=== PATIENT | female | born 1955 | race Caucasian/White ===

== ENCOUNTER → 2020-03-09 10:12 | Outpatient (BNVA) | payer OTHER, SELFPAY | PROVIDERS: Visit Provider Internal Medicine Endocrinology, Diabetes & Metabolism | DX: E11.9 Type 2 diabetes mellitus without complications (principal); E11.319 Type 2 diabetes mellitus with unspecified diabetic retinopathy without macular edema; E11.42 Type 2 diabetes mellitus with diabetic polyneuropathy; E04.2 Nontoxic multinodular goiter; E78.5 Hyperlipidemia, unspecified | CPT/HCPCS: 82947; 99214 ==

== ENCOUNTER → 2020-04-07 12:08 | Outpatient (BNVA) | payer OTHER, SELFPAY | PROVIDERS: Visit Provider Dietitian, Registered | DX: Z76.89 Persons encountering health services in other specified circumstances (principal) ==

== ENCOUNTER 2020-05-11 13:24 | Outpatient (REF) | payer OTHER, SELFPAY | END 2020-05-11 13:25 | disposition home or self-care (01) | LOC: HO.LAB 13:24 | PROVIDERS: PCP Internal Medicine; Visit Provider Internal Medicine | DX: Z20.828 Contact with and (suspected) exposure to other viral communicable diseases (principal) | CPT/HCPCS: C9803; U0003 ==

== ENCOUNTER 2020-06-10 09:45 | Outpatient (REF) | payer OTHER, SELFPAY | END 2020-06-10 09:46 | disposition home or self-care (01) | LOC: HO.LAB 09:45 | PROVIDERS: Visit Provider Internal Medicine | DX: Z20.822 Contact with and (suspected) exposure to COVID-19 (principal) | CPT/HCPCS: 36415; C9803; U0003 ==

== ENCOUNTER 2020-06-15 09:58 | Outpatient (REF) | payer OTHER, SELFPAY ==
--- NOTE | 2020-06-15 10:02 | MM_ITS ---
EXAMINATION: MM SCREENING DIGITAL BREAST TOMOSYNTHESIS, BILATERAL CLINICAL INFORMATION: Screening. Asymptomatic. Reduction mammoplasty 2009. The lifetime risk of breast cancer based on the Tyrer-Cuzick Model is 6%. COMPARISON: Mammography: 06/10/2019, 12/10/2018, 06/05/2018, 04/22/2017; targeted ultrasound left breast 06/11/2018, 12/10/2018. TECHNIQUE: Digital breast tomosynthesis is performed in both the craniocaudal and mediolateral oblique views along with computer-aided detection (CAD). Synthesized 2D images are generated from the tomosynthesis. Additional right exaggerated CC view is provided. FINDINGS: There are scattered areas of fibroglandular density (ACR BI-RADS breast composition Category b). Parenchymal pattern is similar to prior studies. There is minor stable scarring inferior breasts with scattered round calcifications consistent with the prior reduction mammoplasty. Small waxing and waning cyst again noted posterior 7:00 left breast. No significant mass. No interval architectural abnormality or abnormal calcifications. MM/MM tomosynthesis screening BI IMPRESSION: No mammographic evidence of malignancy. ASSESSMENT: BI-RADS 2: Benign RECOMMENDATION: Routine annual mammography screening. This patient's information was entered into a reminder system with a target due date for their next mammogram.
== END 2020-06-15 09:59 | disposition home or self-care (01) ==
LOC: HO.MAMMO 09:58
PROVIDERS: PCP Internal Medicine; Visit Provider Internal Medicine
DX: Z12.31 Encounter for screening mammogram for malignant neoplasm of breast (principal)
CPT/HCPCS: 77063; 77067

== ENCOUNTER 2020-07-11 08:47 | Outpatient (REF) | payer OTHER, SELFPAY | END 2020-07-11 08:48 | disposition home or self-care (01) | LOC: CF 08:47 | PROVIDERS: PCP Internal Medicine; Visit Provider Internal Medicine Endocrinology, Diabetes & Metabolism | DX: E11.319 Type 2 diabetes mellitus with unspecified diabetic retinopathy without macular edema (principal); E11.42 Type 2 diabetes mellitus with diabetic polyneuropathy; E04.2 Nontoxic multinodular goiter; E78.5 Hyperlipidemia, unspecified; R63.4 Abnormal weight loss | CPT/HCPCS: 82947; 99212 ==

== ENCOUNTER 2020-07-11 09:20 | Outpatient (REF) | payer OTHER, SELFPAY | END 2020-07-11 09:21 | disposition home or self-care (01) | LOC: HO.10HDL 09:20 | PROVIDERS: Visit Provider Internal Medicine Endocrinology, Diabetes & Metabolism | DX: Z13.89 Encounter for screening for other disorder (principal) ==

== ENCOUNTER 2020-07-12 09:05 | Outpatient (REF) | payer OTHER, SELFPAY ==
[2020-07-12 09:31] LABS: Hematocrit 37.5 % (37-47); Hemoglobin 12.3 g/dl (12.0-16.0); Mean Corpuscular HGB Conc 32.8 g/dl (31.0-35.0); Mean Corpuscular Hemoglobin 30.2 pg (27.0-33.0); Mean Corpuscular Volume 92.1 fL (80-98); Mean Platelet Volume 10.2 fL (9.4-12.3); Platelet Count 161 X10*3/uL (160-400); Red Blood Count 4.07 X10*6/uL (4.20-5.50); Red Cell Distribution Width 12.8 % (11.0-16.0); White Blood Count 4.3 X10*3/uL (4.8-10.8)
[2020-07-12 09:59] LABS: Alanine Aminotransferase 48 U/L (0-31); Albumin Level 3.9 g/dL (3.5-5.0); Alkaline Phosphatase 74 U/L (39-117); Anion Gap 12 (12-20); Aspartate Amino Transferase 30 U/L (5-31); Bilirubin Total 0.5 mg/dL (0.0-1.0); Blood Urea Nitrogen 15 mg/dL (9-16); Calcium 8.8 mg/dL (8.4-10.2); Carbon Dioxide 26 mmol/L (22-29); Chloride 107 mmol/L (96-108); Cholesterol 147 mg/dL; Estimated Glomerular Filt Rate 43; Glucose Fasting 104 mg/dL (60-99); HDL Cholesterol 61 mg/dL; LDL Cholesterol Calculated 68 mg/dl; Potassium 4.3 mmol/L (3.3-5.1); Sodium 141 mmol/L (135-145); Total Protein 6.7 g/dL (6.5-8.0); Triglycerides 92 mg/dL
[2020-07-12 10:01] LABS: Creatinine Urine 158.42 mg/dL; Microalbum/Creatinine Ratio Ur 70.6 ug/mg cr
[2020-07-12 10:19] LABS: Free T4 (Free Thyroxine) 0.94 ng/dL (0.71-1.85); Vitamin D 25-OH Total 48.1 ng/mL (>30)
[2020-07-13 05:43] LABS: DHEA Sulfate 15 mcg/dL (12-133)
[2020-07-13 06:26] LABS: LDL Cholesterol Direct 76 mg/dL (<100)
[2020-07-13 23:56] LABS: Adrenocorticotropic Hormone 19 pg/mL (6-50)
[2020-07-14 16:23] LABS: Vitamin B12 415 pg/mL (200-900)
== END 2020-07-12 09:06 | disposition home or self-care (01) ==
LOC: HO.LAB 09:05
PROVIDERS: Visit Provider Internal Medicine Endocrinology, Diabetes & Metabolism
DX: E11.9 Type 2 diabetes mellitus without complications (principal); R63.4 Abnormal weight loss
CPT/HCPCS: 36415; 80053; 80061; 82024; 82043; 82306; 82533; 82607; 82627; 83721; 84439; 84443; 85027

== ENCOUNTER → 2020-07-14 10:55 | Outpatient (BNVA) | payer OTHER, SELFPAY | PROVIDERS: PCP Internal Medicine; Visit Provider Dietitian, Registered ==

== ENCOUNTER → 2020-08-11 13:05 | Outpatient (BNVA) | payer OTHER, SELFPAY | PROVIDERS: PCP Internal Medicine; Visit Provider Internal Medicine | DX: I48.0 Paroxysmal atrial fibrillation (principal); I95.1 Orthostatic hypotension; Z95.818 Presence of other cardiac implants and grafts | CPT/HCPCS: 93005; 99212 ==

== ENCOUNTER → 2020-10-18 12:54 | Outpatient (BNVA) | payer OTHER, SELFPAY | PROVIDERS: PCP Internal Medicine; Referring Provider Internal Medicine; Visit Provider Nurse Practitioner | DX: R10.33 Periumbilical pain (principal); R19.7 Diarrhea, unspecified; R13.10 Dysphagia, unspecified; K21.9 Gastro-esophageal reflux disease without esophagitis; R09.89 Other specified symptoms and signs involving the circulatory and respiratory systems; Z98.84 Bariatric surgery status; Z79.899 Other long term (current) drug therapy | CPT/HCPCS: 99212 ==

== ENCOUNTER 2020-12-02 10:25 | Emergency (ER) | payer OTHER, SELFPAY ==
--- NOTE | ~2020-12-02 | CT_ITS ---
EXAMINATION: CT ABDOMEN AND PELVIS WITH CONTRAST CLINICAL INFORMATION: Abdominal pain. Diarrhea. Evaluate for colitis. COMPARISON: Previous CT of the abdomen and pelvis most recent November 2019. TECHNIQUE: Multidetector volumetric images were obtained from the superior aspect of the liver through the pubic symphysis following administration 85 mL of Omnipaque 350 intravenous contrast. Sagittal and coronal reformatted images were obtained on the technologist's workstation. Oral contrast: Yes This CT examination was performed using dose optimization techniques as appropriate, variously including the following: *Automated exposure control *Adjustment of mA and/or kV according to patient size (this includes techniques or standardized protocols for targeted exams where dose is matched to indication/reason for exam; i.e. extremities or head) *Use of iterative reconstruction technique DLP: 380 mGy-cm FINDINGS: LUNG BASES: The visualized lung bases are unremarkable. LIVER, GALLBLADDER, AND BILIARY TREE: There is a small 5 mm calcification seen in the central liver that is stable. The gallbladder has been removed. There is no biliary duct dilatation. PANCREAS: Unremarkable. SPLEEN: Unremarkable. ADRENAL GLANDS: Unremarkable. KIDNEYS AND URETERS: The kidneys are normal in size, shape, and attenuation. No hydronephrosis, hydroureter, or calculi seen. No perinephric stranding. BLADDER: There is air in the bladder. This may be related to recent catheterization. Clinical correlation is recommended. GASTROINTESTINAL TRACT: There are postoperative changes from gastric bypass. There is a small bowel intussusception at the small bowel anastomosis, nonobstructive. Small and large bowel is otherwise unremarkable. No evidence of colitis or diverticulitis is seen. The appendix is normal. ABDOMINAL WALL: No significant hernia is appreciated. LYMPH NODES: Normal. VASCULAR: Unremarkable. PELVIC VISCERA: There is a small calcification in the uterus probably representing a calcified fibroid. There are small bilateral ovarian calcifications. These findings are stable. OSSEOUS STRUCTURES: There are degenerative changes of the spine. There is a mild T11 vertebral body fracture that is unchanged. CT/CT abdomen pelvis w con IMPRESSION: No evidence of colitis or diverticulitis. Postoperative changes following gastric bypass. Nonobstructed small bowel intussusception at the small bowel anastomosis. Air in the bladder. This may be related to recent catheterization. Clinical correlation recommended.
[2020-12-02 10:52] VITALS: BP 161/48; PULSE 64; RESP 12; TEMP 36.6; O2SAT 100; BMI 22.4
--- NOTE | 2020-12-02 11:08 | ED.NAVMDI ---
HPI - Nausea/Vomiting/Diarrhea General Chief complaint: Nausea/Vomiting/Diarrhea Stated complaint: Weakness Time Seen by Provider: 12/02/20 10:45 Source: patient Mode of arrival: ambulatory Limitations: no limitations History of Present Illness HPI Narrative: Patient presents to ED for weakness, loss of appetite, tiredness, and multiple episodes of diarrhea per day for 1 month. Patient also states black stool around a month. Patient admits to using Pepto-Bismol. Patient states also having abdominal pain with the diarrhea for months. Patient denies being placed on any new antibiotics or recent hospital admission. Recently travel from [place] but started having diarrhea [place] Patient states she is vaccinated against the COVID-19 virus. MD elicited complaint: nausea, vomiting, diarrhea and abdominal pain Associated nausea: Yes Related Data Home Medications Medication Instructions Recorded Confirmed ascorbic acid (vitamin C) 250 mg 250 mg PO DAILY 03/09/20 08/11/20 tablet bupropion HCl 200 mg tablet,12 hr 200 mg PO DAILY 03/09/20 08/11/20 sustained-release calcium carbonate 600 mg (1,500 1 tab PO BID 03/09/20 08/11/20 mg)-vitamin D3 400 unit tablet ferrous sulfate 325 mg (65 mg 325 mg PO BID 03/09/20 08/11/20 iron) tablet midodrine 10 mg tablet 10 mg PO TID 03/09/20 08/11/20 oxybutynin chloride 5 mg tablet 5 mg PO BID 03/09/20 08/11/20 trazodone 100 mg tablet 100 mg PO BEDTIME PRN 03/09/20 08/11/20 aspirin 81 mg tablet,delayed 81 mg PO DAILY 07/11/20 08/11/20 release atorvastatin 40 mg tablet 40 mg PO BEDTIME tab 07/11/20 08/11/20 loperamide 2 mg capsule 2 mg PO BEDTIME cap 07/11/20 08/11/20 Previous Rx's Medication Instructions Recorded gabapentin 300 mg capsule 300 mg PO BEDTIME #90 cap 05/11/20 acarbose 25 mg tablet 25 mg PO TID 30 Days #90 tab 07/11/20 blood-glucose meter #1 ea 07/11/20 flecainide 50 mg tablet 50 mg PO Q12H #180 tab 08/15/20 metoprolol succinate 25 mg 25 mg PO DAILY #90 tab 08/15/20 tablet,extended release 24 hr cholecalciferol (vitamin D3) 50 50 mcg PO DAILY #90 cap 09/13/20 mcg (2,000 unit) capsule pantoprazole 40 mg tablet,delayed 40 mg PO QAM #90 tab 09/14/20 release blood sugar diagnostic #100 ea 09/29/20 blood-glucose meter #1 ea 09/29/20 lancets 28 gauge #100 ea 09/29/20 sucralfate 1 gram tablet 2 g PO DAILY #60 tab 10/18/20 nitrofurantoin monohyd/m-cryst 100 mg PO Q12H 7 Days #14 cap 12/02/20 [Macrobid] Allergies Allergy/AdvReac Type Severity Reaction Status Date / Time SEASON ALERGIES Allergy Unknown Unknown Uncoded 10/18/20 13:07 Review of Systems Review of Systems: Yes all other systems are reviewed and are negative Constitutional: Constitutional: Reports as per HPI, Reports no additional constitutional complaints and Reports fatigue Eyes: Eyes: Reports as per HPI and Reports no additional eye complaints ENT: Reports system reviewed and no additional complaints, except as documented and Reports as per HPI Cardiovascular: Cardiovascular: Reports as per HPI and Reports no additional cardiovascular complaints Respiratory: Respiratory: Reports as per HPI and Reports no additional respiratory complaints Gastrointestinal: Gastrointestinal: Reports as per HPI, Reports no additional gastrointestinal complaints, Reports abdominal pain, Reports melena, Reports diarrhea and Reports nausea Musculoskeletal: Musculoskeletal: Reports no additional musculoskeletal complaints and Reports as per HPI Neurologic: Reports system reviewed and no additional complaints, except as documented and Reports as per HPI Psychiatric: Psychiatric: Reports no additional psychiatric complaints and Reports as per HPI Endocrine: Endocrine: Reports fatigue [facility] Past Medical History Medical History (Updated 12/02/20 @ 18:49 by JOHNNY Sarkar) Anxiety Depression Diabetes type 2, controlled Diabetic polyneuropathy associated with type 2 diabetes mellitus Diabetic retinopathy associated with type 2 diabetes mellitus Dyslipidemia Non-toxic multinodular goiter Orthostatic hypotension Overweight (BMI 25.0-29.9) PAF (paroxysmal atrial fibrillation) Presence of Watchman left atrial appendage closure device Subdural hematoma Syncope and collapse Vitamin D deficiency Surgical History History of gastric bypass Hx of hand surgery Hx of knee surgery Family History Family History Father CVD (cardiovascular disease) Mother Diabetes Social History Social History Alcohol intake: never Patient Tobacco Use Status: Never used Tobacco Use of substances other than those prescribed or required for medical reasons: No Advance Directives: No Advance Directives Information Provided: No Physical Exam Vital Signs: Vital Signs: Last Vital Signs Temp 97.6 F 12/02/20 17:54 Pulse 71 12/02/20 17:54 Resp 13 12/02/20 17:54 BP 164/56 H 12/02/20 17:54 Pulse Ox 100 12/02/20 17:54 Body Mass Index 22.4 Const: General: cooperative, healthy appearing, comfortable, no acute distress, well developed, alert, awake and Physically active; No lethargic Orientation/consciousness: oriented to person, oriented to place, patient oriented x3 and No lethargic HENMT: Head: Yes normal to inspection, Yes No palpable skull fracture present, Yes normocephalic, Yes atraumatic, No abrasion, No Acrocyanosis present, No Betts's sign, No cranial bruits, No hematoma, No laceration, No occipital foramen tenderness, No palpable skull fracture, No raccoon eyes, No scalp lesion, No scalp tenderness, No Temporal artery tenderness present and No periorbital ecchymosis Eyes: General: appearance normal, both eyes and all related structures Neck: Neck: Yes normal visual inspection, Yes full ROM, Yes no lymphadenopathy, Yes no meningeal signs, Yes trachea midline, Yes supple and No tender Chest: Chest palpation & inspection: normal inspection of the chest and normal palpation of entire chest wall Resp: Effort & Inspection: normal respiratory effort and able to speak in complete sentences Auscultation: clear to auscultation bilaterally GI: Inspection: Yes normal to inspection and No abdominal wall ecchymosis Palpation (GI): Soft to palpation, not firm, nontender, no guarding and not rigid : General: No CVA tenderness and Yes no CVA tenderness Back/Spine/Pelvis: Back: no CVA tenderness, No CVA tenderness and No back tenderness Skin: General skin exam: no rashes or lesions noted and elasticity normal Neuro: Other: Negative slurred speech. Negative facial droop. They have put a drift. All extremities equal strength 5+. [id number] rapid hand movement intact. Negative Romberg General: oriented to person, oriented to place, patient oriented x3, gait normal and CN's II-XI intact bilaterally Cranial nerves: Yes CN's II-XII intact bilaterally Extrem: General: Yes normal to inspection and Yes full ROM Psych: Appearance: grossly normal, well kempt and not disheveled Course Course Course Narrative: Patient's neuro exam is intact. Patient will have labs drawn including stool sample and COVID swab. Will do rectal exam with female senior case manager is availabe. Reevaluation(s) Reevaluation #1: Patient labs are baseline except kidney function mild AMAURI patient will be sent for abdominal CT scan to rule out any abdominal etiology like colitis. Waiting for patient to give stool sample. Patient vital signs stable Time: 11:47 Reevaluation #2: Second troponin came back normal. AK resolved. Abdominal CT scan shows interception. Patient's abdomen is benign and nontender palpation. Patient ate all med down a meal without staff known. Spoke with Dr. Stoll recommended that I contact bariatric surgeon. I spoke with JOHNNY Canela who is the on-call bariatric surgeon who works with . She recommends patient being on liquid diet for the next 2 days and follow up with her [facility] bariatric surgeon. Patient will be on liquid diet. She states patient could be discharged. Time: 18:23 Reevaluation #3: Patient informed of what a bariatric surgeon recommended and she is agreeable to plan. Patient also given a cup and in a rare in lab order for outpatient C diff to be done since patient was not able to give stool sample during ED visit. Time: 18:44 MDM - Nausea/Vomiting/Diarrhea MDM Narrative Medical decision making narrative: Intussusception Lab Data Result diagrams: 12/02/20 11:47 12/02/20 16:07 Labs: Lab Results 12/02/20 12/02/20 12/02/20 Range/Units 11:39 11:47 11:47 WBC 4.9 (4.8-10.8) X10*3/uL RBC 4.02 L (4.20-5.50) X10*6/uL Hgb 12.1 (12.0-16.0) g/dl Hct 36.0 L (37-47) % MCV 89.6 (80-98) fL MCH 30.1 (27.0-33.0) pg MCHC 33.6 (31.0-35.0) g/dl RDW 11.5 (11.0-16.0) % Plt Count 140 L (160-400) X10*3/uL MPV 10.4 (9.4-12.3) fL Immature Gran % (Auto) 0.2 (0.0-0.4) % Neut % (Auto) 66.5 (45-73) % Lymph % (Auto) 25.2 (20-40) % [place] % (Auto) 6.1 (2-11) % Eos % (Auto) 1.8 (0-4) % Baso % (Auto) 0.2 (0-2) % Lymph # (Auto) 1.2 (1.2-4.9) X10*3/uL [place] # (Auto) 0.3 (0.1-1.2) X10*3/uL Eos # (Auto) 0.1 (0.0-0.4) X10*3/uL Baso # (Auto) 0.0 (0.0-0.2) X10*3/uL Abs Immat Gran (auto) 0.01 (0.00-0.03) X10*3/uL Absolute Neuts (auto) 3.2 (2.0-8.3) X10*3/uL Absolute Nucleated RBC 0.000 (0.0-0.012) X10*3/uL Nucleated RBC % (auto) 0.0 (0.0-0.2) /100WBC Sodium 137 (135-145) mmol/L Potassium 4.5 (3.3-5.1) mmol/L Chloride 104 (96-108) mmol/L Carbon Dioxide 26 (22-29) mmol/L Anion Gap 12 (12-20) BUN 19 H (9-16) mg/dL Creatinine 1.50 H (0.5-1.4) mg/dL Estim Creat Clear Calc 31.7 Estimated GFR 35 Random Glucose 117 H (60-115) mg/dL Calcium 9.4 D (8.4-10.2) mg/dL Total Bilirubin 0.6 (0.0-1.0) mg/dL Direct Bilirubin 0.2 (0.0-0.5) mg/dL AST 29 (5-31) U/L ALT 26 (0-31) U/L Alkaline Phosphatase 77 (39-117) U/L Troponin I High Sens (<3.5-17.0) ng/L Total Protein 7.2 (6.5-8.0) g/dL Albumin 4.1 (3.5-5.0) g/dL Lipase 33 (8-78) U/L Urine Color Urine Appearance Urine pH (5.0-8.0) Ur Specific [place] (1.005-1.025) Urine Protein (NEG-TRACE) MG/DL Urine Glucose (UA) (NEG) MG/DL Urine Ketones (NEG) MG/DL Urine Blood (NEG) Urine Nitrite (NEG) Ur Leukocyte Esterase (NEG) Urine RBC (0) /HPF Urine WBC (0-4) /HPF Ur Squamous Epith Cells /LPF Urine Bacteria /LPF Stool Occult Blood (NEGATIVE) COVID-19 (BELLE) Negative (Negative) COVID-19 Clin Com See Note 12/02/20 12/02/20 12/02/20 Range/Units 11:47 12:02 15:40 WBC (4.8-10.8) X10*3/uL RBC (4.20-5.50) X10*6/uL Hgb (12.0-16.0) g/dl Hct (37-47) % MCV (80-98) fL MCH (27.0-33.0) pg MCHC (31.0-35.0) g/dl RDW (11.0-16.0) % Plt Count (160-400) X10*3/uL MPV (9.4-12.3) fL Immature Gran % (Auto) (0.0-0.4) % Neut % (Auto) (45-73) % Lymph % (Auto) (20-40) % [place] % (Auto) (2-11) % Eos % (Auto) (0-4) % Baso % (Auto) (0-2) % Lymph # (Auto) (1.2-4.9) X10*3/uL [place] # (Auto) (0.1-1.2) X10*3/uL Eos # (Auto) (0.0-0.4) X10*3/uL Baso # (Auto) (0.0-0.2) X10*3/uL Abs Immat Gran (auto) (0.00-0.03) X10*3/uL Absolute Neuts (auto) (2.0-8.3) X10*3/uL Absolute Nucleated RBC (0.0-0.012) X10*3/uL Nucleated RBC % (auto) (0.0-0.2) /100WBC Sodium (135-145) mmol/L Potassium (3.3-5.1) mmol/L Chloride (96-108) mmol/L Carbon Dioxide (22-29) mmol/L Anion Gap (12-20) BUN (9-16) mg/dL Creatinine (0.5-1.4) mg/dL Estim Creat Clear Calc Estimated GFR Random Glucose (60-115) mg/dL Calcium (8.4-10.2) mg/dL Total Bilirubin (0.0-1.0) mg/dL Direct Bilirubin (0.0-0.5) mg/dL AST (5-31) U/L ALT (0-31) U/L Alkaline Phosphatase (39-117) U/L Troponin I High Sens 13.2 16.5 (<3.5-17.0) ng/L Total Protein (6.5-8.0) g/dL Albumin (3.5-5.0) g/dL Lipase (8-78) U/L Urine Color Urine Appearance Urine pH (5.0-8.0) Ur Specific [place] (1.005-1.025) Urine Protein (NEG-TRACE) MG/DL Urine Glucose (UA) (NEG) MG/DL Urine Ketones (NEG) MG/DL Urine Blood (NEG) Urine Nitrite (NEG) Ur Leukocyte Esterase (NEG) Urine RBC (0) /HPF Urine WBC (0-4) /HPF Ur Squamous Epith Cells /LPF Urine Bacteria /LPF Stool Occult Blood NEGATIVE (NEGATIVE) COVID-19 (BELLE) (Negative) COVID-19 Clin Com 12/02/20 12/02/20 Range/Units 15:40 16:07 WBC (4.8-10.8) X10*3/uL RBC (4.20-5.50) X10*6/uL Hgb (12.0-16.0) g/dl Hct (37-47) % MCV (80-98) fL MCH (27.0-33.0) pg MCHC (31.0-35.0) g/dl RDW (11.0-16.0) % Plt Count (160-400) X10*3/uL MPV (9.4-12.3) fL Immature Gran % (Auto) (0.0-0.4) % Neut % (Auto) (45-73) % Lymph % (Auto) (20-40) % [place] % (Auto) (2-11) % Eos % (Auto) (0-4) % Baso % (Auto) (0-2) % Lymph # (Auto) (1.2-4.9) X10*3/uL [place] # (Auto) (0.1-1.2) X10*3/uL Eos # (Auto) (0.0-0.4) X10*3/uL Baso # (Auto) (0.0-0.2) X10*3/uL Abs Immat Gran (auto) (0.00-0.03) X10*3/uL Absolute Neuts (auto) (2.0-8.3) X10*3/uL Absolute Nucleated RBC (0.0-0.012) X10*3/uL Nucleated RBC % (auto) (0.0-0.2) /100WBC Sodium 140 (135-145) mmol/L Potassium 4.4 (3.3-5.1) mmol/L Chloride 110 H (96-108) mmol/L Carbon Dioxide 24 (22-29) mmol/L Anion Gap 10 L (12-20) BUN 16 (9-16) mg/dL Creatinine 1.24 (0.5-1.4) mg/dL Estim Creat Clear Calc 38.3 Estimated GFR 44 Random Glucose 94 (60-115) mg/dL Calcium 8.2 L D (8.4-10.2) mg/dL Total Bilirubin 0.5 (0.0-1.0) mg/dL Direct Bilirubin (0.0-0.5) mg/dL AST 30 (5-31) U/L ALT 28 (0-31) U/L Alkaline Phosphatase 66 (39-117) U/L Troponin I High Sens (<3.5-17.0) ng/L Total Protein 6.1 L (6.5-8.0) g/dL Albumin 3.5 (3.5-5.0) g/dL Lipase (8-78) U/L Urine Color STRAW Urine Appearance CLEAR Urine pH 6.0 (5.0-8.0) Ur Specific [place] <= 1.005 (1.005-1.025) Urine Protein NEG (NEG-TRACE) MG/DL Urine Glucose (UA) NEG (NEG) MG/DL Urine Ketones NEG (NEG) MG/DL Urine Blood NEG (NEG) Urine Nitrite NEG (NEG) Ur Leukocyte Esterase 2+ H (NEG) Urine RBC 1-4 (0) /HPF Urine WBC 15-29 H (0-4) /HPF Ur Squamous Epith Cells 2+ /LPF Urine Bacteria 2+ /LPF Stool Occult Blood (NEGATIVE) COVID-19 (BELLE) (Negative) COVID-19 Clin Com ECG Data Interpretation: Reticular rate 59. Pr interval 146. QRS 98. QTC 401. Negative STEMI. Normal sinus rhythm. Negative STEMI Discharge Plan Discharge Clinical Impression: Intussusception Patient Disposition: Home, Self-Care Instructions: Urinary Tract Infection in Women (ED), Intussusception in Children (ED) Additional Instructions: Se le entregar? nuestro comprobante de laboratorio para nuestra prueba C diff para pacientes con el laboratorio del [facility]. [place] tomograf?a computarizada abdominal mostr? que tuvo invaginaci?n intestinal. Tus laboratorios volvieron a la normalidad. [place] orina muestra nehemiah infecci?n del tracto urinario. El cirujano compa?trico de claudy recomend? nehemiah dieta l?quida bernard los pr?ximos 2 d?as y para que usted kameron un seguimiento con greene cirujano compa?trico en [facility]. Regrese al servicio de urgencias si tiene dolor abdominal, n?useas, v?mitos, fiebre, escalofr?os, estre?imiento, sangrado rectal, v?mitos con cornelio, orina con cornelio o cualquier otro s?ntoma que le preocupe. Prescriptions: New nitrofurantoin monohyd/m-cryst [Macrobid] 100 mg capsule 100 mg PO Q12H 7 Days Qty: 14 RF: 0 No Action gabapentin 300 mg capsule 300 mg PO BEDTIME Qty: 90 RF: 1 flecainide 50 mg tablet 50 mg PO Q12H Qty: 180 RF: 1 metoprolol succinate 25 mg tablet extended release 24 hr 25 mg PO DAILY Qty: 90 RF: 3 cholecalciferol (vitamin D3) 50 mcg (2,000 unit) capsule 50 mcg PO DAILY Qty: 90 RF: 1 pantoprazole 40 mg tablet,delayed release (DR/EC) 40 mg PO QAM Qty: 90 RF: 1 (DME) blood-glucose meter [FreeStyle Lite Meter] Kit See Rx Instructions miscellaneous .MEDSUPPLY Qty: 1 RF: 0 (DME) FreeStyle Lite Strips Strip See Rx Instructions .MEDSUPPLY Qty: 100 RF: 6 (DME) lancets [FreeStyle Lancets] 28 gauge misc See Rx Instructions .MEDSUPPLY Qty: 100 RF: 6 sucralfate 1 gram tablet 2 g PO DAILY Qty: 60 RF: 6 ferrous sulfate 325 mg (65 mg iron) tablet 325 mg PO BID RF: 0 midodrine 10 mg tablet 10 mg PO TID RF: 0 calcium carbonate-vitamin D3 600 mg(1,500mg) -400 unit tablet 1 tab PO BID RF: 0 trazodone 100 mg tablet 100 mg PO BEDTIME PRNRF: 0 bupropion HCl 200 mg tablet sustained-release 12 hr 200 mg PO DAILY RF: 0 oxybutynin chloride 5 mg tablet 5 mg PO BID RF: 0 ascorbic acid (vitamin C) 250 mg tablet 250 mg PO DAILY RF: 0 atorvastatin 40 mg tablet 40 mg PO BEDTIME RF: 0 loperamide 2 mg capsule 2 mg PO BEDTIME RF: 0 aspirin 81 mg tablet,delayed release (DR/EC) 81 mg PO DAILY RF: 0 acarbose 25 mg tablet 25 mg PO TID 30 Days Qty: 90 RF: 6 (DME) blood-glucose meter [FreeStyle Lite Meter] Kit See Rx Instructions .ROUTE .MEDSUPPLY Qty: 1 RF: 0 Referrals: Bryce Merrill MD [Physician] - 2 days (Intussusepction.) Interventions: ED Discharge Assessment Last Done: 12/02/20 19:04 Discharge Date/Time: 12/02/20 19:05 Print Language: Malay
--- NOTE | 2020-12-02 11:10 | ECG_ITS ---
Test Reason : NAUSEA Blood Pressure : / mmHG Vent. Rate : 059 BPM Atrial Rate : 059 BPM P-R Int : 146 ms QRS Dur : 098 ms QT Int : 406 ms P-R-T Axes : 076 066 021 degrees QTc Int : 401 ms Sinus bradycardia Normal ECG When compared with ECG of 23-NOV-2019 15:32, No significant change was found Referred By: Sami Otero Electronically Signed By:Shaq Chaney
[2020-12-02] MEDS: 0.9 % Sodium Chloride 1,000 ML 999 ML IV ×2 (11:49→14:08)
[2020-12-02 11:57] LABS: MANUAL DIFF FLAG NO
[2020-12-02 12:02] LABS: Basophils Percent Auto 0.2 % (0-2); Eosinophils Absolute Auto 0.1 X10*3/uL (0.0-0.4); Eosinophils Percent Auto 1.8 % (0-4); Hemoglobin 12.1 g/dl (12.0-16.0); Imm Gran Abs Auto 0.01 X10*3/uL (0.00-0.03); Imm Gran Pct Auto 0.2 % (0.0-0.4); Lymphocytes Absolute Auto 1.2 X10*3/uL (1.2-4.9); Lymphocytes Percent Auto 25.2 % (20-40); Mean Corpuscular HGB Conc 33.6 g/dl (31.0-35.0); Mean Corpuscular Hemoglobin 30.1 pg (27.0-33.0); Mean Corpuscular Volume 89.6 fL (80-98); Mean Platelet Volume 10.4 fL (9.4-12.3); Monocytes Absolute Auto 0.3 X10*3/uL (0.1-1.2); Monocytes Percent Auto 6.1 % (2-11); Neutrophils Absolute Auto 3.2 X10*3/uL (2.0-8.3); Neutrophils Percent Auto 66.5 % (45-73); Platelet Count 140 X10*3/uL (160-400); Red Blood Count 4.02 X10*6/uL (4.20-5.50); Red Cell Distribution Width 11.5 % (11.0-16.0); White Blood Count 4.9 X10*3/uL (4.8-10.8)
[2020-12-02 12:21] LABS: OBS Int Ctl Valid YES; OBS1 NEGATIVE (NEGATIVE)
[2020-12-02 12:25] LABS: Alanine Aminotransferase 26 U/L (0-31); Albumin Level 4.1 g/dL (3.5-5.0); Alkaline Phosphatase 77 U/L (39-117); Anion Gap 12 (12-20); Aspartate Amino Transferase 29 U/L (5-31); Bilirubin Direct 0.2 mg/dL (0.0-0.5); Bilirubin Total 0.6 mg/dL (0.0-1.0); Blood Urea Nitrogen 19 mg/dL (9-16); Calcium 9.4 mg/dL (8.4-10.2); Carbon Dioxide 26 mmol/L (22-29); Chloride 104 mmol/L (96-108); Creatinine Clr Calc Pharmacy 31.7; Estimated Glomerular Filt Rate 35; Glucose Random 117 mg/dL (60-115); Lipase 33 U/L (8-78); Potassium 4.5 mmol/L (3.3-5.1); Sodium 137 mmol/L (135-145); Total Protein 7.2 g/dL (6.5-8.0)
[2020-12-02 12:26] LABS: Troponin-I High Sensitivity 13.2 ng/L (<3.5-17.0)
[2020-12-02 12:38] LABS: COVID-19 Test Negative (Negative)
[2020-12-02] MEDS: Famotidine/PF 20 MG/2 ML VIAL IVPUSH (13:13)
[2020-12-02 13:27] VITALS: PULSE 59; RESP 18; TEMP 36.7; O2SAT 99
[2020-12-02 14:09] VITALS: BP 166/60; PULSE 63; RESP 18; TEMP 37.2; O2SAT 97
[2020-12-02 14:11] VITALS: BP 166/60; BP 171/58; PULSE 62; PULSE 64
[2020-12-02 14:13] VITALS: BP 179/53; PULSE 62
[2020-12-02] MEDS: iohexoL 350 MG/ML 100 ML INFUS..BTL IV (15:25)
[2020-12-02 15:47] LABS: Glucose Urine UA NEG (NEG); Leukocyte Esterase Urine 2+ (NEG); Nitrite Urine NEG (NEG); Specific Gravity - Urine <= 1.005 (1.005-1.025); UACC Culture Trigger YES; Urine Blood NEG (NEG); Urine Ketones NEG (NEG); Urine Protein NEG (NEG-TRACE)
[2020-12-02 15:52] LABS: Appearance Urine CLEAR; Color Urine STRAW
[2020-12-02 16:07] LABS: Bacteria Urine 2+ /LPF; Squamous Epithelial Cell Urine 2+ /LPF
[2020-12-02 16:16] LABS: Troponin-I High Sensitivity 16.5 ng/L (<3.5-17.0)
[2020-12-02 16:42] LABS: Alanine Aminotransferase 28 U/L (0-31); Albumin Level 3.5 g/dL (3.5-5.0); Alkaline Phosphatase 66 U/L (39-117); Anion Gap 10 (12-20); Aspartate Amino Transferase 30 U/L (5-31); Bilirubin Total 0.5 mg/dL (0.0-1.0); Blood Urea Nitrogen 16 mg/dL (9-16); Calcium 8.2 mg/dL (8.4-10.2); Carbon Dioxide 24 mmol/L (22-29); Chloride 110 mmol/L (96-108); Creatinine Clr Calc Pharmacy 38.3; Estimated Glomerular Filt Rate 44; Glucose Random 94 mg/dL (60-115); Potassium 4.4 mmol/L (3.3-5.1); Sodium 140 mmol/L (135-145); Total Protein 6.1 g/dL (6.5-8.0)
--- NOTE | 2020-12-02 17:23 | PC.NURSE ---
Pt unable to provide stool sample- aware of need. Pt appears comfortable, eating [employer] in bed.
[2020-12-02 17:54] VITALS: BP 164/56; PULSE 71; RESP 13; TEMP 36.4; O2SAT 100
== END 2020-12-02 19:05 | disposition home or self-care (01) ==
PROVIDERS: Physician Assistant; Emergency Provider Emergency Medicine; PCP Internal Medicine
DX: K56.1 Intussusception (principal); N17.9 Acute kidney failure, unspecified; E11.9 Type 2 diabetes mellitus without complications; I48.0 Paroxysmal atrial fibrillation; Z79.82 Long term (current) use of aspirin; Z79.899 Other long term (current) drug therapy; Z98.84 Bariatric surgery status; Z20.822 Contact with and (suspected) exposure to COVID-19
CPT/HCPCS: 36415; 74177; 80053; 80076; 81001; 81003; 82248; 82272; 83690; 84484; 85025; 87086; 87088; 87186; 87635; 93005; 96361; 96374; 99285; Q9967

== ENCOUNTER → 2020-12-30 12:40 | Outpatient (BNVA) | payer OTHER, SELFPAY | PROVIDERS: Visit Provider Nurse Practitioner | DX: R10.33 Periumbilical pain (principal); R09.89 Other specified symptoms and signs involving the circulatory and respiratory systems; R19.7 Diarrhea, unspecified; R11.2 Nausea with vomiting, unspecified; K21.9 Gastro-esophageal reflux disease without esophagitis; Z98.84 Bariatric surgery status | CPT/HCPCS: 99212 ==

== ENCOUNTER 2021-01-09 11:35 | Outpatient (REF) | payer OTHER, SELFPAY ==
[2021-01-09 13:54] LABS: Blood Urea Nitrogen 12 mg/dL (9-16); Estimated Glomerular Filt Rate 42
== END 2021-01-09 11:36 | disposition home or self-care (01) ==
LOC: HO.10HDL 11:35
PROVIDERS: Visit Provider Otolaryngology
DX: Z01.812 Encounter for preprocedural laboratory examination (principal); R42 Dizziness and giddiness
CPT/HCPCS: 36415; 82565; 84520

== ENCOUNTER 2021-02-02 14:50 | Outpatient (REF) | payer OTHER, SELFPAY ==
--- NOTE | ~2021-02-02 | XR_ITS ---
EXAMINATION: CHEST PRE-MRI SCREENING CLINICAL INFORMATION: Check defibrillator or pacemaker. Pre-MRI. COMPARISON: None TECHNIQUE: Chest 1 view FINDINGS: The lungs are well-expanded and clear of acute process. There is no pacemaker or defibrillator wires or hardware seen. Heart size and pulmonary vascularity is normal. There is mild spondylosis dorsal spine. No lytic process. XR/XR pre mri screening IMPRESSION: Clear lungs. No metallic defibrillator pacer electrodes or hardware seen.
--- NOTE | ~2021-02-02 | MR_ITS ---
EXAMINATION: MR BRAIN WITHOUT AND WITH CONTRAST CLINICAL INFORMATION: Vertigo and tinnitus. COMPARISON: CT scan of the head 07/30/2019. TECHNIQUE: Multiplanar, multisequence MRI of the brain was obtained before and after the intravenous administration of 5 mL Gadavist. FINDINGS: The 7th and 8th cranial nerve complexes are normal in course and caliber. No signal abnormality is visualized within the inner ear structures on the precontrast axial T1-weighted sequence. Fluid signal is preserved within the cochleae, semicircular canals, and vestibules on the high-resolution axial FIESTA sequence. No cerebellopontine angle lesion is noted. There is no abnormal labyrinthine or intracanalicular enhancement on postcontrast imaging. No diffusion abnormalities are identified to suggest an acute or subacute infarct. No mass effect or midline shift is seen. The ventricles and sulci appear normal. There are a few scattered foci of hyperintense FLAIR signal in the periventricular and subcortical white matter, most consistent with mild chronic microvascular ischemic changes. No extra-axial fluid collections are seen. The brainstem appears normal. On postcontrast imaging, there is no abnormal parenchymal or leptomeningeal enhancement. No pathologic magnetic susceptibility artifact is identified on the gradient refocused acquisition. The cerebellar tonsils have normal contour and position, and the craniocervical junction appears normal. Marrow signal appears normal. There is a partially empty sella. There have been bilateral lens extractions. The major intracranial flow-voids at the level of the kashia of Vann are preserved. The dural venous sinus flow-voids are maintained. The mastoid air cells and paranasal sinuses are well-aerated. MR/MR head/brain wo/w con IMPRESSION: 1. There are no acute bleeds or infarcts. There are no masses or areas of abnormal enhancement. There are mild chronic microvascular ischemic changes. 2. The internal auditory canals and CP angles appear normal bilaterally.
== END 2021-02-02 14:51 | disposition home or self-care (01) ==
LOC: HO.MRI 14:50
PROVIDERS: Visit Provider Otolaryngology
DX: H81.4 Vertigo of central origin (principal); H93.13 Tinnitus, bilateral
CPT/HCPCS: 70553; A9585

== ENCOUNTER → 2021-02-09 14:44 | Outpatient (BNVA) | payer OTHER, SELFPAY | PROVIDERS: PCP Internal Medicine; Referring Provider Internal Medicine; Visit Provider Nurse Practitioner | DX: R10.33 Periumbilical pain (principal); R19.7 Diarrhea, unspecified; R11.2 Nausea with vomiting, unspecified; R13.10 Dysphagia, unspecified; R14.0 Abdominal distension (gaseous); K21.9 Gastro-esophageal reflux disease without esophagitis; K63.89 Other specified diseases of intestine; Z98.84 Bariatric surgery status | CPT/HCPCS: 99212 ==

== ENCOUNTER → 2021-03-21 09:09 | Outpatient (BNVA) | payer OTHER, SELFPAY | PROVIDERS: PCP Internal Medicine; Visit Provider Nurse Practitioner Gerontology | DX: E11.319 Type 2 diabetes mellitus with unspecified diabetic retinopathy without macular edema (principal); E11.42 Type 2 diabetes mellitus with diabetic polyneuropathy; I10 Essential (primary) hypertension; E04.2 Nontoxic multinodular goiter | CPT/HCPCS: 82947; 83036; 99212 ==

== ENCOUNTER → 2021-03-27 08:13 | Outpatient (BNVA) | payer OTHER, SELFPAY | PROVIDERS: PCP Internal Medicine; Visit Provider Internal Medicine | DX: E04.2 Nontoxic multinodular goiter (principal); I10 Essential (primary) hypertension | CPT/HCPCS: 99212 ==

== ENCOUNTER 2021-03-27 09:12 | Emergency (ER) | payer OTHER, SELFPAY ==
[2021-03-27 09:19] VITALS: BP 209/79; PULSE 60; RESP 16; TEMP 36.9; O2SAT 99; BMI 23.9
--- NOTE | 2021-03-27 10:16 | ECG_ITS ---
Test Reason : hypertension Blood Pressure : / mmHG Vent. Rate : 049 BPM Atrial Rate : 049 BPM P-R Int : 158 ms QRS Dur : 092 ms QT Int : 440 ms P-R-T Axes : 048 058 024 degrees QTc Int : 397 ms Sinus bradycardia Otherwise normal ECG When compared with ECG of 02-DEC-2020 11:55, No significant change was found Referred By: Iliana Carl Electronically Signed By:APARNA CARRERA MD
--- NOTE | 2021-03-27 10:22 | ED_ITS ---
HPI - Headache General Chief Complaint: Headache Stated Complaint: HIGH BLOOD PRESSURE 210/80 FROM MD OFFICE Time Seen by Provider: 03/27/21 10:15 History of Present Illness HPI Narrative: Patient is 65-year-old female with a history hypertension. Presented to endocrine office with having elevated blood pressure. Patient denies any chest pain. No shortness of breath no diaphoresis. No cough no congestion or upper respiratory symptoms. No diaphoresis. Patient from home. No focal weakness. Patient been compliant with her medication. Normally takes metoprolol 25 mg. History of hypertension history of diabetes as well. Related Data Home Medications Medication Instructions Recorded Confirmed ascorbic acid (vitamin C) 250 mg 250 mg PO DAILY 03/09/20 03/27/21 tablet bupropion HCl 200 mg tablet,12 hr 200 mg PO DAILY 03/09/20 03/27/21 sustained-release calcium carbonate 600 mg (1,500 1 tab PO BID 03/09/20 03/27/21 mg)-vitamin D3 400 unit tablet ferrous sulfate 325 mg (65 mg 325 mg PO BID 03/09/20 03/27/21 iron) tablet midodrine 10 mg tablet 10 mg PO TID 03/09/20 03/27/21 oxybutynin chloride 5 mg tablet 5 mg PO BID 03/09/20 03/27/21 trazodone 100 mg tablet 100 mg PO BEDTIME PRN 03/09/20 03/27/21 aspirin 81 mg tablet,delayed 81 mg PO DAILY 07/11/20 03/27/21 release atorvastatin 40 mg tablet 40 mg PO BEDTIME tab 07/11/20 03/27/21 loperamide 2 mg capsule 2 mg PO BEDTIME cap 07/11/20 03/27/21 omeprazole 20 mg capsule,delayed 20 mg PO DAILY 02/09/21 03/27/21 release erythromycin 5 mg/gram (0.5 %) eye 0 mg OPHTHALMIC (EYE) 03/21/21 03/27/21 ointment Previous Rx's Medication Instructions Recorded blood-glucose meter (FreeStyle #1 ea 07/11/20 Lite Meter) metoprolol succinate 25 mg 25 mg PO DAILY #90 tab 08/15/20 tablet,extended release 24 hr blood sugar diagnostic (FreeStyle #100 ea 09/29/20 Lite Strips) blood-glucose meter (FreeStyle #1 ea 09/29/20 Lite Meter) lancets 28 gauge (FreeStyle #100 ea 09/29/20 Lancets) nitrofurantoin 100 mg PO Q12H 7 Days #14 cap 12/02/20 monohydrate/macrocrystals 100 mg capsule (Macrobid) gabapentin 300 mg capsule 300 mg PO BEDTIME #90 cap 12/13/20 flecainide 50 mg tablet 50 mg PO Q12H #180 tab 12/15/20 dicyclomine 20 mg tablet 20 mg PO QIDACHS 30 Days #120 tab 12/30/20 ondansetron HCl 4 mg tablet 4 mg PO BID-TID 30 Days #60 tab 12/30/20 (Zofran) sucralfate 1 gram tablet 4 g PO DAILY #120 tab 12/30/20 Bacillus coagulans 800 million See Rx Instructions PO .COMPLEX 30 02/09/21 cell tablet (Digestive Advantage Days #30 tab Probiotics-Prebiotic) metronidazole 500 mg tablet 500 mg PO TID 10 Days #30 tab 02/09/21 (Flagyl) simethicone 180 mg capsule 180 mg PO TIDWMEAL 30 Days #90 cap 02/09/21 cholecalciferol (vitamin D3) 50 50 mcg PO DAILY #90 cap 02/15/21 mcg (2,000 unit) capsule acarbose 25 mg tablet 25 mg PO TID 30 Days #90 tab 03/08/21 pantoprazole 40 mg tablet,delayed 40 mg PO QAM #90 tab 03/10/21 release Allergies Allergy/AdvReac Type Severity Reaction Status Date / Time No Known Allergies Allergy Verified 03/27/21 08:36 [facility] Past Medical History Attestation statement: The following information was validated with the patient. Medical History Anxiety Depression Diabetes type 2, controlled Diabetic polyneuropathy associated with type 2 diabetes mellitus Diabetic retinopathy associated with type 2 diabetes mellitus Dyslipidemia Non-toxic multinodular goiter Orthostatic hypotension Overweight (BMI 25.0-29.9) PAF (paroxysmal atrial fibrillation) Presence of Watchman left atrial appendage closure device Subdural hematoma Syncope and collapse Vitamin D deficiency Surgical History H/O esophagogastroduodenoscopy History of cholecystectomy History of gastric bypass Hx of colonoscopy Hx of hand surgery Hx of knee surgery Family History Family History Father CVD (cardiovascular disease) Mother Diabetes Social History Social History Household Members: Spouse Alcohol intake: never Patient Tobacco Use Status: Former Tobacco user Quit Date: Over 5 years ago Use of substances other than those prescribed or required for medical reasons: No Advance Directives: No Advance Directives Information Provided: No Patient : No Physical Exam Vital Signs: Vital Signs: Last Vital Signs Temp 98.4 F 03/27/21 11:05 Pulse 52 03/27/21 11:05 Resp 14 03/27/21 11:05 BP 187/59 H 03/27/21 12:10 Pulse Ox 96 03/27/21 11:05 Body Mass Index 23.9 Appearance: Alert. Oriented X3. No acute distress. Eyes: Pupils equal, round and reactive to light. ENT: Pharynx normal. Neck: Normal inspection. Neck supple. No lymph nodes noted. No crepitus CVS: Normal heart rate and rhythm. Pulses normal. Normal S1 and S2 Respiratory: No respiratory distress. Breath sounds normal. No Wheezing. No rales Abdomen: Soft and nontender. No rigidity. No distention. good BS x4 Skin: Skin warm and dry. Normal skin color. Normal skin turgor. Extremities: No lower extremity edema. Neurovascular intact to all extremities. No Lacerations. No Rash Neuro: Oriented X 3. No motor deficit. No sensory deficit. Moving all extermities. No slurred speech MDM - Headache MDM Narrative Medical decision making narrative: Sed rate was normal no evidence for temporal arteritis. Patient's EKG showed a sinus pattern heart rate was 50 p.r. cares QT within normal limits is no acute ST segment elevation. Electrolytes normal. Blood pressure down. Will discharge patient home. Close follow-up on an outpatient basis. In stable condition. Close follow-up with primary physician tomorrow for blood pressure recheck. Lab Data Result diagrams: 03/27/21 10:44 03/27/21 10:44 Labs: Lab Results 03/27/21 03/27/21 03/27/21 Range/Units 10:44 10:44 10:44 WBC 3.6 L (4.8-10.8) X10*3/uL RBC 3.91 L (4.20-5.50) X10*6/uL Hgb 12.0 (12.0-16.0) g/dl Hct 35.8 L (37.0-47.0) % MCV 91.6 (80.0-98.0) fL MCH 30.7 (27.0-33.0) pg MCHC 33.5 (31.0-35.0) g/dl RDW 11.9 (11.0-16.0) % Plt Count 133 L (160-400) X10*3/uL MPV 9.7 (9.4-12.3) fL Immature Gran % (Auto) 0.3 (0.0-0.4) % Neut % (Auto) 62.7 (45-73) % Lymph % (Auto) 27.7 (20-40) % [place]ven % (Auto) 6.2 (2-11) % Eos % (Auto) 2.8 (0-4) % Baso % (Auto) 0.3 (0-2) % Lymph # (Auto) 1.0 L (1.2-4.9) X10*3/uL Craven # (Auto) 0.2 (0.1-1.2) X10*3/uL Eos # (Auto) 0.1 (0.0-0.4) X10*3/uL Baso # (Auto) 0.0 (0.0-0.2) X10*3/uL Abs Immat Gran (auto) 0.01 (0.00-0.03) X10*3/uL Absolute Neuts (auto) 2.2 (2.0-8.3) x10*3/uL Absolute Nucleated RBC 0.000 (0.0-0.012) X10*3/uL Nucleated RBC % (auto) 0.0 (0.0-0.2) /100WBC ESR 12 (0-20) MM/HR Sodium 139 (135-145) mmol/L Potassium 4.0 (3.3-5.1) mmol/L Chloride 105 (96-108) mmol/L Carbon Dioxide 27 (22-29) mmol/L Anion Gap 11 L (12-20) BUN 13 (9-16) mg/dL Creatinine 1.10 (0.5-1.4) mg/dL Estim Creat Clear Calc 43.3 Estimated GFR 50 Random Glucose 122 H (60-115) mg/dL Calcium 8.8 D (8.4-10.2) mg/dL Urine Color Urine Appearance Urine pH (5.0-8.0) Ur Specific [place] (1.005-1.025) Urine Protein (NEG-TRACE) MG/DL Urine Glucose (UA) (NEG) MG/DL Urine Ketones (NEG) MG/DL Urine Blood (NEG) Urine Nitrite (NEG) Ur Leukocyte Esterase (NEG) Urine RBC (0) /HPF Urine WBC (0-4) /HPF Urine WBC Clumps Ur Squamous Epith Cells /LPF Urine Bacteria /LPF 03/27/21 Range/Units 10:44 WBC (4.8-10.8) X10*3/uL RBC (4.20-5.50) X10*6/uL Hgb (12.0-16.0) g/dl Hct (37.0-47.0) % MCV (80.0-98.0) fL MCH (27.0-33.0) pg MCHC (31.0-35.0) g/dl RDW (11.0-16.0) % Plt Count (160-400) X10*3/uL MPV (9.4-12.3) fL Immature Gran % (Auto) (0.0-0.4) % Neut % (Auto) (45-73) % Lymph % (Auto) (20-40) % Craven % (Auto) (2-11) % Eos % (Auto) (0-4) % Baso % (Auto) (0-2) % Lymph # (Auto) (1.2-4.9) X10*3/uL [place] # (Auto) (0.1-1.2) X10*3/uL Eos # (Auto) (0.0-0.4) X10*3/uL Baso # (Auto) (0.0-0.2) X10*3/uL Abs Immat Gran (auto) (0.00-0.03) X10*3/uL Absolute Neuts (auto) (2.0-8.3) x10*3/uL Absolute Nucleated RBC (0.0-0.012) X10*3/uL Nucleated RBC % (auto) (0.0-0.2) /100WBC ESR (0-20) MM/HR Sodium (135-145) mmol/L Potassium (3.3-5.1) mmol/L Chloride (96-108) mmol/L Carbon Dioxide (22-29) mmol/L Anion Gap (12-20) BUN (9-16) mg/dL Creatinine (0.5-1.4) mg/dL Estim Creat Clear Calc Estimated GFR Random Glucose (60-115) mg/dL Calcium (8.4-10.2) mg/dL Urine Color STRAW Urine Appearance HAZY Urine pH 6.0 (5.0-8.0) Ur Specific [place] 1.010 (1.005-1.025) Urine Protein NEG (NEG-TRACE) MG/DL Urine Glucose (UA) NEG (NEG) MG/DL Urine Ketones NEG (NEG) MG/DL Urine Blood NEG (NEG) Urine Nitrite NEG (NEG) Ur Leukocyte Esterase 1+ H (NEG) Urine RBC 0 (0) /HPF Urine WBC 10-14 H (0-4) /HPF Urine WBC Clumps NOTED Ur Squamous Epith Cells TRACE /LPF Urine Bacteria 3+ /LPF Discharge Plan Discharge Clinical Impression: Hypertension Patient Disposition: Home, Self-Care Instructions: Hypertension (ED) Prescriptions: No Action metoprolol succinate 25 mg tablet extended release 24 hr 25 mg PO DAILY Qty: 90 RF: 3 (DME) blood-glucose meter [FreeStyle Lite Meter] Kit See Rx Instructions miscellaneous .MEDSUPPLY Qty: 1 RF: 0 (DME) FreeStyle Lite Strips Strip See Rx Instructions .MEDSUPPLY Qty: 100 RF: 6 (DME) lancets [FreeStyle Lancets] 28 gauge misc See Rx Instructions .MEDSUPPLY Qty: 100 RF: 6 gabapentin 300 mg capsule 300 mg PO BEDTIME Qty: 90 RF: 1 flecainide 50 mg tablet 50 mg PO Q12H Qty: 180 RF: 1 cholecalciferol (vitamin D3) 50 mcg (2,000 unit) capsule 50 mcg PO DAILY Qty: 90 RF: 1 acarbose 25 mg tablet 25 mg PO TID 30 Days Qty: 90 RF: 4 pantoprazole 40 mg tablet,delayed release (DR/EC) 40 mg PO QAM Qty: 90 RF: 1 nitrofurantoin monohyd/m-cryst [Macrobid] 100 mg capsule 100 mg PO Q12H 7 Days Qty: 14 RF: 0 erythromycin 5 mg/gram (0.5 %) ointment 0 mg ophthalmic (eye) RF: 0 ferrous sulfate 325 mg (65 mg iron) tablet 325 mg PO BID RF: 0 midodrine 10 mg tablet 10 mg PO TID RF: 0 calcium carbonate-vitamin D3 600 mg(1,500mg) -400 unit tablet 1 tab PO BID RF: 0 trazodone 100 mg tablet 100 mg PO BEDTIME PRNRF: 0 bupropion HCl 200 mg tablet sustained-release 12 hr 200 mg PO DAILY RF: 0 oxybutynin chloride 5 mg tablet 5 mg PO BID RF: 0 ascorbic acid (vitamin C) 250 mg tablet 250 mg PO DAILY RF: 0 atorvastatin 40 mg tablet 40 mg PO BEDTIME RF: 0 loperamide 2 mg capsule 2 mg PO BEDTIME RF: 0 aspirin 81 mg tablet,delayed release (DR/EC) 81 mg PO DAILY RF: 0 (DME) blood-glucose meter [FreeStyle Lite Meter] Kit See Rx Instructions .ROUTE .MEDSUPPLY Qty: 1 RF: 0 sucralfate 1 gram tablet 4 g PO DAILY Qty: 120 RF: 6 ondansetron HCl [Zofran] 4 mg tablet 4 mg PO BID-TID 30 Days Qty: 60 RF: 3 dicyclomine 20 mg tablet 20 mg PO QIDACHS 30 Days Qty: 120 RF: 6 omeprazole 20 mg capsule,delayed release(DR/EC) 20 mg PO DAILY RF: 0 Digestive Advantage Probio-Pre 800 million cell tablet See Rx Instructions PO .COMPLEX 30 Days Qty: 30 RF: 3 metronidazole [Flagyl] 500 mg tablet 500 mg PO TID 10 Days Qty: 30 RF: 0 simethicone 180 mg capsule 180 mg PO TIDWMEAL 30 Days Qty: 90 RF: 3 Referrals: Cherrie Gómez MD [Primary Care Provider] - 1 day (Blood pressure recheck tomorrow.)
[2021-03-27] MEDS: Acetaminophen 325 MG TABLET 650 MG PO (10:29)
[2021-03-27 10:30] VITALS: BP 204/53; PULSE 62
[2021-03-27] MEDS: Metoprolol Succinate ER 25 MG TAB.ER.24H PO (10:30)
[2021-03-27 10:49] LABS: MANUAL DIFF FLAG NO
[2021-03-27 10:53] LABS: Appearance Urine HAZY; Color Urine STRAW; Glucose Urine UA NEG (NEG); Leukocyte Esterase Urine 1+ (NEG); Nitrite Urine NEG (NEG); UACC Culture Trigger YES; Urine Blood NEG (NEG); Urine Ketones NEG (NEG); Urine Protein NEG (NEG-TRACE)
[2021-03-27 10:54] LABS: Basophils Percent Auto 0.3 % (0-2); Eosinophils Absolute Auto 0.1 X10*3/uL (0.0-0.4); Eosinophils Percent Auto 2.8 % (0-4); Hematocrit 35.8 % (37.0-47.0); Imm Gran Abs Auto 0.01 X10*3/uL (0.00-0.03); Imm Gran Pct Auto 0.3 % (0.0-0.4); Lymphocytes Percent Auto 27.7 % (20-40); Mean Corpuscular HGB Conc 33.5 g/dl (31.0-35.0); Mean Corpuscular Hemoglobin 30.7 pg (27.0-33.0); Mean Corpuscular Volume 91.6 fL (80.0-98.0); Mean Platelet Volume 9.7 fL (9.4-12.3); Monocytes Absolute Auto 0.2 X10*3/uL (0.1-1.2); Monocytes Percent Auto 6.2 % (2-11); Neutrophils Absolute Auto 2.2 x10*3/uL (2.0-8.3); Neutrophils Percent Auto 62.7 % (45-73); Platelet Count 133 X10*3/uL (160-400); Red Blood Count 3.91 X10*6/uL (4.20-5.50); Red Cell Distribution Width 11.9 % (11.0-16.0); White Blood Count 3.6 X10*3/uL (4.8-10.8)
[2021-03-27 11:02] LABS: Anion Gap 11 (12-20); Blood Urea Nitrogen 13 mg/dL (9-16); Calcium 8.8 mg/dL (8.4-10.2); Carbon Dioxide 27 mmol/L (22-29); Chloride 105 mmol/L (96-108); Creatinine Clr Calc Pharmacy 43.3; Estimated Glomerular Filt Rate 50; Glucose Random 122 mg/dL (60-115); Sodium 139 mmol/L (135-145)
[2021-03-27 11:05] VITALS: BP 202/68; PULSE 52; RESP 14; TEMP 36.9; O2SAT 96
[2021-03-27 11:14] LABS: Bacteria Urine 3+ /LPF; RBC Urine 0 /HPF (0); Squamous Epithelial Cell Urine TRACE /LPF; WBC Clumps Urine NOTED
[2021-03-27 12:00] LABS: Erythrocyte Sedimentation Rate 12 MM/HR (0-20)
[2021-03-27 12:10] VITALS: BP 187/59
== END 2021-03-27 12:28 | disposition home or self-care (01) ==
PROVIDERS: Emergency Provider Emergency Medicine Emergency Medical Services; PCP Internal Medicine
DX: R51.9 Headache, unspecified (principal); I10 Essential (primary) hypertension; Z79.899 Other long term (current) drug therapy; Z87.891 Personal history of nicotine dependence
CPT/HCPCS: 36415; 80048; 81001; 85025; 85652; 87086; 87088; 87186; 93005; 99283; 99285

== ENCOUNTER → 2021-03-28 13:04 | Outpatient (BNVA) | payer OTHER, SELFPAY | PROVIDERS: PCP Internal Medicine; Referring Provider Internal Medicine; Visit Provider Internal Medicine | DX: I48.0 Paroxysmal atrial fibrillation (principal); I95.1 Orthostatic hypotension; Z95.818 Presence of other cardiac implants and grafts; I10 Essential (primary) hypertension | CPT/HCPCS: 99212 ==

== ENCOUNTER → 2021-04-24 10:28 | Outpatient (BNVA) | payer OTHER, SELFPAY | PROVIDERS: PCP Internal Medicine; Referring Provider Internal Medicine; Visit Provider Internal Medicine | DX: I48.0 Paroxysmal atrial fibrillation (principal); I95.1 Orthostatic hypotension; I10 Essential (primary) hypertension; Z95.818 Presence of other cardiac implants and grafts; Z51.81 Encounter for therapeutic drug level monitoring; Z79.899 Other long term (current) drug therapy | CPT/HCPCS: 99212 ==

== ENCOUNTER → 2021-07-21 08:06 | Outpatient (BNVA) | payer OTHER, SELFPAY | PROVIDERS: PCP Internal Medicine; Referring Provider Internal Medicine; Visit Provider Nurse Practitioner | DX: K21.9 Gastro-esophageal reflux disease without esophagitis (principal); K59.00 Constipation, unspecified; R19.7 Diarrhea, unspecified; R14.0 Abdominal distension (gaseous) | CPT/HCPCS: 99212 ==

== ENCOUNTER 2021-08-17 15:08 | Outpatient (REF) | payer OTHER, SELFPAY ==
[2021-08-17 17:48] LABS: Appearance Urine CLEAR; Color Urine YELLOW; Glucose Urine UA NEG (NEG); Leukocyte Esterase Urine NEG (NEG); Nitrite Urine NEG (NEG); PH 5.5 (5.0-8.0); Specific Gravity - Urine <= 1.005 (1.005-1.025); Urine Blood NEG (NEG); Urine Ketones NEG (NEG); Urine Protein NEG (NEG-TRACE)
== END 2021-08-17 15:09 | disposition home or self-care (01) ==
LOC: HO.LAB 15:08
PROVIDERS: PCP Internal Medicine; Referring Provider Internal Medicine; Visit Provider Nurse Practitioner
DX: R10.33 Periumbilical pain (principal); K21.9 Gastro-esophageal reflux disease without esophagitis; K59.04 Chronic idiopathic constipation; R11.2 Nausea with vomiting, unspecified; R30.0 Dysuria
CPT/HCPCS: 81003; 99212

== ENCOUNTER 2021-08-23 15:03 | Outpatient (REF) | payer OTHER, SELFPAY ==
--- NOTE | ~2021-08-23 | MM_ITS ---
EXAMINATION: MM SCREENING DIGITAL BREAST TOMOSYNTHESIS, BILATERAL CLINICAL INFORMATION: Screening. Asymptomatic. Reduction mammoplasty, 2009. The lifetime risk of breast cancer based on the Tyrer-Cuzick Model is 4%. COMPARISON: Mammography: 06/15/2020, 06/10/2019, 12/10/2018, 06/05/2018, targeted ultrasound left breast 06/11/2018. TECHNIQUE: Digital breast tomosynthesis is performed in both the craniocaudal and mediolateral oblique views along with computer-aided detection (CAD). Synthesized 2D images are generated from the tomosynthesis. FINDINGS: There are scattered areas of fibroglandular density (ACR BI-RADS breast composition Category b). There is minor scarring and scattered inferior anterior round and rim calcifications consistent with the prior reduction mammoplasty. There is a chronic cyst/oil cyst mid 7:00 left breast. Neither breast shows interval mass or architectural abnormality or abnormal calcifications. The axilla are unremarkable. MM/MM tomosynthesis screening BI IMPRESSION: No mammographic evidence of malignancy. ASSESSMENT: BI-RADS 2: Benign RECOMMENDATION: Routine annual mammography screening. This patient's information was entered into a reminder system with a target due date for their next mammogram.
== END 2021-08-23 15:04 | disposition home or self-care (01) ==
LOC: HO.MAMMO 15:03
PROVIDERS: Visit Provider Internal Medicine
DX: Z12.31 Encounter for screening mammogram for malignant neoplasm of breast (principal)
CPT/HCPCS: 77063; 77067

== ENCOUNTER 2021-09-01 13:55 | Emergency (ER) | payer OTHER, SELFPAY ==
--- NOTE | ~2021-09-01 | CT_ITS ---
EXAMINATION: CT HEAD WITHOUT CONTRAST CT CERVICAL SPINE WITHOUT CONTRAST CLINICAL INFORMATION: Trauma. COMPARISON: CT head and cervical spine 07/30/2019. MRI brain 02/02/2021 TECHNIQUE: Imaging was performed from the skull base to vertex without intravenous administration of contrast. In addition, helical noncontrast CT imaging was acquired through the cervical spine and source images were reviewed along with axial reconstructions and sagittal and coronal MPRs. [This CT examination was performed using dose optimization techniques as appropriate, variously including the following: *Automated exposure control *Adjustment of mA and/or kV according to patient size (this includes techniques or standardized protocols for targeted exams where dose is matched to indication/reason for exam; i.e. extremities or head) *Use of iterative reconstruction technique] DLP: 897 mGy-cm FINDINGS: HEAD: No intracranial mass, hemorrhage, or midline shift is visualized. The ventricles and sulci are proportional. No extra-axial collections are identified. The paranasal sinuses and mastoid air cells are well aerated. CERVICAL SPINE: There is no evidence of acute cervical spine fracture. Vertebral bodies remain normal in height. Cervical vertebrae have normal alignment. Degenerative spurs at the anterior endplate at C6-C7. Smaller spurs present at C5-C6 and C4-C5 anterior endplates. Mild joint narrowing at C5-C6. Facet joints are normal. No pre- or paravertebral soft tissue abnormality is identified. Limited assessment of the lung apices is unremarkable. CT/CT cervical spine wo con IMPRESSION: 1. No acute intracranial pathology. 2. No CT evidence of acute cervical spine fracture or traumatic subluxation
--- NOTE | ~2021-09-01 | XR_ITS ---
EXAMINATION: XR FOOT, RIGHT CLINICAL INFORMATION: Anterior right foot pain. COMPARISON: None TECHNIQUE: AP, lateral, and oblique views of the right foot. FINDINGS: There is no visible acute fracture, dislocation or subluxation seen. The ankle mortise and subtalar joints are normal. There is a moderate to large calcaneal heel and retrocalcaneal enthesophytes. There is matched mild periosteal reaction along the lateral proximal fourth metatarsal likely subacute to old stress fracture The soft tissues are normal. XR/XR foot RT min 3V IMPRESSION: Moderate size calcaneal and retrocalcaneal enthesophytes. There is periosteal thickening right proximal fourth metatarsal likely subacute to old stress fracture. No visible acute fracture or dislocation seen..
--- NOTE | ~2021-09-01 | CT_ITS ---
EXAMINATION: CT HEAD WITHOUT CONTRAST CT CERVICAL SPINE WITHOUT CONTRAST CLINICAL INFORMATION: Trauma. COMPARISON: CT head and cervical spine 07/30/2019. MRI brain 02/02/2021 TECHNIQUE: Imaging was performed from the skull base to vertex without intravenous administration of contrast. In addition, helical noncontrast CT imaging was acquired through the cervical spine and source images were reviewed along with axial reconstructions and sagittal and coronal MPRs. [This CT examination was performed using dose optimization techniques as appropriate, variously including the following: *Automated exposure control *Adjustment of mA and/or kV according to patient size (this includes techniques or standardized protocols for targeted exams where dose is matched to indication/reason for exam; i.e. extremities or head) *Use of iterative reconstruction technique] DLP: 897 mGy-cm FINDINGS: HEAD: No intracranial mass, hemorrhage, or midline shift is visualized. The ventricles and sulci are proportional. No extra-axial collections are identified. The paranasal sinuses and mastoid air cells are well aerated. CERVICAL SPINE: There is no evidence of acute cervical spine fracture. Vertebral bodies remain normal in height. Cervical vertebrae have normal alignment. Degenerative spurs at the anterior endplate at C6-C7. Smaller spurs present at C5-C6 and C4-C5 anterior endplates. Mild joint narrowing at C5-C6. Facet joints are normal. No pre- or paravertebral soft tissue abnormality is identified. Limited assessment of the lung apices is unremarkable. CT/CT head/brain wo con IMPRESSION: 1. No acute intracranial pathology. 2. No CT evidence of acute cervical spine fracture or traumatic subluxation
[2021-09-01 15:21] VITALS: BP 115/47; PULSE 53; RESP 16; TEMP 36; O2SAT 100; BMI 23.9
--- NOTE | 2021-09-01 15:26 | ECG_ITS ---
Test Reason : SYNCOPE Blood Pressure : / mmHG Vent. Rate : 046 BPM Atrial Rate : 046 BPM P-R Int : 166 ms QRS Dur : 104 ms QT Int : 450 ms P-R-T Axes : 072 053 028 degrees QTc Int : 393 ms Sinus bradycardia Otherwise normal ECG When compared with ECG of 27-MAR-2021 10:37, No significant change was found Referred By: Generic ED Physician Electronically Signed By:Shaq Chaney
[2021-09-01 15:39] LABS: MANUAL DIFF FLAG NO
[2021-09-01 15:40] LABS: Basophils Percent Auto 0.2 % (0-2); Eosinophils Absolute Auto 0.2 X10*3/uL (0.0-0.4); Eosinophils Percent Auto 4.7 % (0-4); Hematocrit 37.4 % (37.0-47.0); Hemoglobin 12.5 g/dl (12.0-16.0); Imm Gran Abs Auto 0.01 X10*3/uL (0.00-0.03); Imm Gran Pct Auto 0.2 % (0.0-0.4); Lymphocytes Absolute Auto 1.2 X10*3/uL (1.2-4.9); Lymphocytes Percent Auto 25.2 % (20-40); Mean Corpuscular HGB Conc 33.4 g/dl (31.0-35.0); Mean Corpuscular Hemoglobin 30.6 pg (27.0-33.0); Mean Corpuscular Volume 91.7 fL (80.0-98.0); Monocytes Absolute Auto 0.3 X10*3/uL (0.1-1.2); Monocytes Percent Auto 6.2 % (2-11); Neutrophils Percent Auto 63.5 % (45-73); Platelet Count 149 X10*3/uL (160-400); Red Blood Count 4.08 X10*6/uL (4.20-5.50); Red Cell Distribution Width 11.7 % (11.0-16.0); White Blood Count 4.7 X10*3/uL (4.8-10.8)
[2021-09-01 15:58] LABS: Anion Gap 12 (12-20); Blood Urea Nitrogen 18 mg/dL (9-16); Calcium 9.3 mg/dL (8.4-10.2); Carbon Dioxide 24 mmol/L (22-29); Chloride 104 mmol/L (96-108); Creatinine Clr Calc Pharmacy 37.1; Estimated Glomerular Filt Rate 42; Glucose Random 150 mg/dL (60-115); Potassium 4.4 mmol/L (3.3-5.1); Sodium 136 mmol/L (135-145)
[2021-09-01 15:59] VITALS: BP 157/51; PULSE 50; RESP 10; TEMP 36.8; O2SAT 100
[2021-09-01 16:01] LABS: Troponin-I High Sensitivity 9.8 ng/L (<3.5-17.0)
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
[2021-09-01] MEDS: Acetaminophen 325 MG TABLET 650 MG PO (16:21)
[2021-09-01 17:09] VITALS: BP 153/48; PULSE 49; RESP 13; O2SAT 98
== END 2021-09-01 19:31 | disposition home or self-care (01) ==
PROVIDERS: Emergency Provider Emergency Medicine; PCP Internal Medicine
DX: S00.93XA Contusion of unspecified part of head, initial encounter (principal); M54.2 Cervicalgia; E11.9 Type 2 diabetes mellitus without complications; G44.309 Post-traumatic headache, unspecified, not intractable; W10.9XXA Fall (on) (from) unspecified stairs and steps, initial encounter; Y93.9 Activity, unspecified; Y92.9 Unspecified place or not applicable; Y99.9 Unspecified external cause status; Z79.899 Other long term (current) drug therapy; Z79.4 Long term (current) use of insulin; Z87.891 Personal history of nicotine dependence
CPT/HCPCS: 36415; 70450; 72125; 73630; 80048; 84484; 85025; 93005; 99284; 99285

== ENCOUNTER → 2021-09-26 09:28 | Outpatient (BNVA) | payer OTHER, SELFPAY | PROVIDERS: PCP Internal Medicine; Visit Provider Nurse Practitioner Gerontology | DX: E11.319 Type 2 diabetes mellitus with unspecified diabetic retinopathy without macular edema (principal); E11.42 Type 2 diabetes mellitus with diabetic polyneuropathy; I10 Essential (primary) hypertension | CPT/HCPCS: 82947; 83036; 99212 ==

== ENCOUNTER 2021-10-03 09:07 | Outpatient (REF) | payer OTHER, SELFPAY ==
[2021-10-03 10:53] LABS: Creatinine Urine 86.84 mg/dL; Microalbum/Creatinine Ratio Ur 5.7 ug/mg cr
[2021-10-03 11:03] LABS: Alanine Aminotransferase 63 U/L (0-31); Albumin Level 4.1 g/dL (3.5-5.0); Alkaline Phosphatase 95 U/L (39-117); Anion Gap 11 (12-20); Aspartate Amino Transferase 43 U/L (5-31); Bilirubin Total 0.6 mg/dL (0.0-1.0); Blood Urea Nitrogen 27 mg/dL (9-16); Calcium 9.4 mg/dL (8.4-10.2); Carbon Dioxide 24 mmol/L (22-29); Chloride 107 mmol/L (96-108); Cholesterol 203 mg/dL; Estimated Glomerular Filt Rate 39; Glucose Fasting 201 mg/dL (60-99); HDL Cholesterol 66 mg/dL; LDL Cholesterol Calculated 115 mg/dl; Potassium 4.7 mmol/L (3.3-5.1); Sodium 137 mmol/L (135-145); Total Protein 7.3 g/dL (6.5-8.0); Triglycerides 111 mg/dL
[2021-10-03 11:25] LABS: Free T4 (Free Thyroxine) 1.05 ng/dL (0.71-1.85)
[2021-10-05 00:52] LABS: LDL Cholesterol Direct 123 mg/dL (<100)
== END 2021-10-03 09:08 | disposition home or self-care (01) ==
LOC: HO.LAB 09:07
PROVIDERS: PCP Internal Medicine; Visit Provider Nurse Practitioner Gerontology
DX: E11.9 Type 2 diabetes mellitus without complications (principal)
CPT/HCPCS: 36415; 80053; 80061; 82043; 83721; 84439; 84443

== ENCOUNTER → 2021-10-30 10:54 | Outpatient (BNVA) | payer OTHER, SELFPAY | PROVIDERS: PCP Internal Medicine; Referring Provider Internal Medicine; Visit Provider Internal Medicine | DX: I48.0 Paroxysmal atrial fibrillation (principal); Z51.81 Encounter for therapeutic drug level monitoring; Z79.899 Other long term (current) drug therapy; Z95.818 Presence of other cardiac implants and grafts; I95.1 Orthostatic hypotension; I10 Essential (primary) hypertension | CPT/HCPCS: 99212 ==

== ENCOUNTER → 2021-12-27 12:13 | Outpatient (BNVA) | payer OTHER, SELFPAY | PROVIDERS: PCP Internal Medicine; Visit Provider Nurse Practitioner | DX: K59.04 Chronic idiopathic constipation (principal); K21.9 Gastro-esophageal reflux disease without esophagitis; R30.0 Dysuria; R14.0 Abdominal distension (gaseous); Z79.899 Other long term (current) drug therapy | CPT/HCPCS: 99212 ==

== ENCOUNTER 2022-03-14 14:02 | Outpatient (REF) | payer OTHER, SELFPAY ==
[2022-03-14 16:19] LABS: Vitamin B12 356 pg/mL (200-900)
== END 2022-03-14 14:03 | disposition home or self-care (01) ==
LOC: HO.LAB 14:02
PROVIDERS: PCP Internal Medicine; Visit Provider Psychiatry & Neurology Neurology
DX: G31.84 Mild cognitive impairment of uncertain or unknown etiology (principal)
CPT/HCPCS: 36415; 82607

== ENCOUNTER → 2022-03-27 08:50 | Outpatient (BNVA) | payer OTHER, SELFPAY | PROVIDERS: PCP Internal Medicine; Visit Provider Internal Medicine Endocrinology, Diabetes & Metabolism | DX: E11.9 Type 2 diabetes mellitus without complications (principal); Z79.84 Long term (current) use of oral hypoglycemic drugs | CPT/HCPCS: 82947; 83036; 99212 ==

== ENCOUNTER → 2022-04-23 08:41 | Outpatient (BNVA) | payer OTHER, SELFPAY | PROVIDERS: PCP Internal Medicine; Visit Provider Registered Nurse Diabetes Educator | DX: E11.42 Type 2 diabetes mellitus with diabetic polyneuropathy (principal); Z79.84 Long term (current) use of oral hypoglycemic drugs | CPT/HCPCS: 99211 ==

== ENCOUNTER → 2022-05-07 10:42 | Outpatient (BNVA) | payer OTHER, SELFPAY | PROVIDERS: PCP Internal Medicine; Referring Provider Internal Medicine; Visit Provider Internal Medicine | DX: I48.0 Paroxysmal atrial fibrillation (principal); I95.1 Orthostatic hypotension; I10 Essential (primary) hypertension; Z51.81 Encounter for therapeutic drug level monitoring; Z79.899 Other long term (current) drug therapy; Z95.818 Presence of other cardiac implants and grafts; Z79.82 Long term (current) use of aspirin | CPT/HCPCS: 93005; 99212 ==

== ENCOUNTER → 2022-05-28 13:53 | Outpatient (BNVA) | payer OTHER, SELFPAY | PROVIDERS: PCP Internal Medicine; Visit Provider Registered Nurse Diabetes Educator | DX: E11.9 Type 2 diabetes mellitus without complications (principal); E11.42 Type 2 diabetes mellitus with diabetic polyneuropathy; E11.319 Type 2 diabetes mellitus with unspecified diabetic retinopathy without macular edema; I48.0 Paroxysmal atrial fibrillation; Z87.891 Personal history of nicotine dependence | CPT/HCPCS: 99211 ==

== ENCOUNTER → 2022-07-03 08:39 | Outpatient (BNVA) | payer OTHER, SELFPAY | PROVIDERS: PCP Internal Medicine; Visit Provider Internal Medicine Endocrinology, Diabetes & Metabolism | DX: E11.9 Type 2 diabetes mellitus without complications (principal) | CPT/HCPCS: 82947; 83036; 99212 ==

== ENCOUNTER 2022-08-06 11:34 | Emergency (ER) | payer OTHER, SELFPAY ==
[2022-08-06 11:40] VITALS: BP 154/62; BP 154/92; PULSE 61; PULSE 68; RESP 19; O2SAT 100; O2SAT 98; BMI 23.0
--- NOTE | 2022-08-06 13:34 | ECG_ITS ---
Test Reason : anxiety/dyspnea Blood Pressure : / mmHG Vent. Rate : 056 BPM Atrial Rate : 056 BPM P-R Int : 166 ms QRS Dur : 088 ms QT Int : 428 ms P-R-T Axes : 066 051 007 degrees QTc Int : 413 ms Sinus bradycardia Nonspecific T wave abnormality When compared with ECG of 01-SEP-2021 15:32, No significant change was found Referred By: Deisi Nichols Electronically Signed By:MANDI SINGLETON MD
--- NOTE | 2022-08-06 13:35 | ED.DIZZY ---
HPI - Dizziness General Chief Complaint: Dizziness Stated Complaint: ANXIETY X'S 1 WEEK W/DIZZINESS,CP Time Seen by Provider: 08/06/22 13:19 Source: patient Mode of arrival: ambulatory Limitations: no limitations History of Present Illness HPI Narrative: Patient comes to the emergency room complaining of 2 months of intermittent anxiety, feeling like she is ?floating? dizziness described as feeling like she is on a different world . Patient states that she feels that depression side of her chest that makes he want to scream. Time, patient states that she is asymptomatic anxious but requesting a once a dose of anxiolytic Related Data Home Medications Medication Instructions Recorded Confirmed ascorbic acid (vitamin C) 250 mg 250 mg PO DAILY 03/09/20 07/03/22 tablet bupropion HCl 200 mg tablet,12 hr 200 mg PO DAILY 03/09/20 07/03/22 sustained-release calcium carbonate 600 mg-vitamin 1 tab PO BID 03/09/20 07/03/22 D3 10 mcg (400 unit) tablet ferrous sulfate 325 mg (65 mg 325 mg PO BID 03/09/20 07/03/22 iron) tablet oxybutynin chloride 5 mg tablet 5 mg PO BID 03/09/20 07/03/22 trazodone 100 mg tablet 100 mg PO BEDTIME PRN 03/09/20 07/03/22 aspirin 81 mg tablet,delayed 81 mg PO DAILY 03/28/21 07/03/22 release (Adult Aspirin Regimen) cyclosporine 0.05 % eye drops in a 1 drp ophthalmic (eye) BID 08/17/21 07/03/22 dropperette (Restasis) escitalopram oxalate 10 mg tablet 10 mg PO QAM 03/27/22 07/03/22 amlodipine 5 mg tablet (Norvasc) 10 mg PO DAILY 07/03/22 07/03/22 Previous Rx's Medication Instructions Recorded blood-glucose meter (FreeStyle #1 ea 09/29/20 Lite Meter kit) lancets 28 gauge (FreeStyle #100 ea 09/29/20 Lancets) ondansetron HCl 4 mg tablet 4 mg PO BID-TID nausea and 12/30/20 (Zofran) vomiting 30 days #60 tabs Bacillus coagulans 800 million See Rx Instructions PO .COMPLEX 30 06/09/21 cell tablet (Digestive Advantage days #30 tabs Probiotics-Prebiotic) flecainide 50 mg tablet 50 mg PO Q12H #180 tabs 09/13/21 atorvastatin 80 mg tablet 80 mg PO BEDTIME #30 tabs 10/03/21 blood sugar diagnostic (FreeStyle #200 ea 10/04/21 Lite Strips) metoprolol succinate 25 mg 25 mg PO DAILY #90 tabs 10/24/21 tablet,extended release 24 hr gabapentin 300 mg capsule 300 mg PO BEDTIME #90 caps 12/19/21 cholecalciferol (vitamin D3) 50 50 mcg PO DAILY #90 caps 01/08/22 mcg (2,000 unit) capsule sucralfate 1 gram tablet 2 g PO DAILY #180 tabs 02/01/22 pantoprazole 40 mg tablet,delayed 40 mg PO QAM #90 tabs 03/05/22 release metformin 1,000 mg tablet 1,000 mg PO BIDWMEAL #60 tabs 03/27/22 simethicone 180 mg capsule 180 mg PO TID #90 caps 03/27/22 (Anti-Gas Ultra Strength) plecanatide 3 mg tablet (Trulance) 3 mg PO DAILY #30 tabs 03/28/22 diabetic shoes #1 ea 04/05/22 acarbose 25 mg tablet 25 mg PO TID 90 days #270 tabs 05/23/22 sennosides 8.6 mg tablet (senna) 17.2 mg PO BEDTIME PRN for 07/11/22 constipation #60 tabs dicyclomine 20 mg tablet 20 mg PO QID #120 tabs 07/16/22 Allergies Allergy/AdvReac Type Severity Reaction Status Date / Time No Known Allergies Allergy Verified 05/07/22 10:53 Review of Systems Review of Systems: Constitutional : No Weight loss, No Fever, No Chills, No Night Sweats, No Fatigue, No Malaise ENT/Mouth : No Hearing loss, No Ear Pain, No Nasal Congestion, No Sinus Pain, No Hoarseness, No sore throat, No Rhinorrhea, No Swallowing Difficulty Eyes: No Eye Pain, No Swelling, No Redness, No Foreign Body, No Discharge, No Vision Changes Cardiovascular : No Chest Pain, No SOB, No Dyspnea on Exertion, No Orthopnea, No Edema, No Palpitations Respiratory : No Cough, No Sputum, No Wheezing, No Smoke Exposure, No Dyspnea Gastrointestinal : No Nausea, No Vomiting, No Diarrhea, No Constipation, No abdominal Pain, No Hematochezia, No Melena Genitourinary : no irregular bleeding, No Dysuria, No Urinary Frequency, No Hematuria, No Urinary Incontinence, No Urgency, No Flank Pain, No Urinary Flow Changes, No Hesitancy Musculoskeletal : No joint pain, No Myalgias, No Joint Swelling Skin : No Skin Lesions, No rash Neuro : No Weakness, No Numbness, No Paresthesias, No Loss of Consciousness, No Dizziness, No Headache Psych : Complaining of anxiety, No Depression, No SI/HI/AH/VH, No Social Issues, Heme/Lymph: No Bruising, No Bleeding,No Lymphadenopathy Endocrine : No Polyuria, No Polydipsia, No Temperature Intolerance PMFSH Past Medical History Medical History Anxiety Depression Diabetes type 2, controlled Diabetic polyneuropathy associated with type 2 diabetes mellitus Diabetic retinopathy associated with type 2 diabetes mellitus Dyslipidemia Non-toxic multinodular goiter Orthostatic hypotension Overweight (BMI 25.0-29.9) PAF (paroxysmal atrial fibrillation) Presence of Watchman left atrial appendage closure device Presence of Watchman left atrial appendage closure device Small intestinal bacterial overgrowth Subdural hematoma Syncope and collapse Vitamin D deficiency Surgical History H/O esophagogastroduodenoscopy History of cholecystectomy History of gastric bypass Hx of colonoscopy Hx of hand surgery Hx of knee surgery Family History Family History Father CVD (cardiovascular disease) Mother Diabetes Social History Social History (Updated 07/03/22 @ 08:48 by SEBASTIAN Boykin) Household Members: Spouse Alcohol intake: never Patient Tobacco Use Status: Current everyday Tobacco user Advance Directives: No Advance Directives Information Provided: No Physical Exam Vital Signs: Vital Signs: Last Vital Signs Pulse 80 08/06/22 14:24 Resp 15 08/06/22 14:24 BP 131/67 08/06/22 14:24 Pulse Ox 99 08/06/22 14:24 O2 Del Method 08/06/22 14:24 BMI result Body Mass Index 23.0 Const: Other: Appearance: Alert. Oriented X3. No acute distress. Well-appearing Eyes: Pupils equal, round and reactive to light. ENT: Pharynx normal. Neck: Normal inspection. Neck supple. No lymph nodes noted. No crepitus CVS: Normal heart rate and rhythm. Pulses normal. Normal S1 and S2 Respiratory: No respiratory distress. Breath sounds normal. No Wheezing. No rales Abdomen: Soft and nontender. No rigidity. No distention. Skin: Skin warm and dry. Normal skin color. Normal skin turgor. Extremities: No lower extremity edema. No Lacerations. No Rash Neuro: Oriented X 3. No motor deficit. No sensory deficit. Moving all extremities. No slurred speech. CN 2 through 12 grossly intact Psych: calm, cooperative, normal affect Course Course Course Narrative: -basic labs and EKG pending -patient received 1 dose of Ativan. -most likely, symptoms secondary to anxiety. At this time, patient is asymptomatic. Medications Administered Discontinued Medications Generic Name Dose Route Start Last Admin Trade Name Freq PRN Reason Stop Dose Admin Lorazepam 1 mg 08/06/22 13:34 08/06/22 14:20 Lorazepam 1 Mg Tablet PO 08/06/22 13:35 1 mg ONCE ONE Administration Medical Decision Making Medical Decision Making [facility] Narrative: -patient remains asymptomatic, -troponin negative -EKG interpreted by me, sinus bradycardia, heart rate 56, no ST segment depressions or elevation, nonspecific T-wave inversion in lead 3, no reciprocal changes, QTC 413 -patient tolerating well p.o., states that she feels completely normal Differential Diagnosis Differential Diagnoses: The differential diagnosis associated with the presentation includes (Anxiety, dizziness, hypertension) Lab Data [facility] Lab Attestation statement: I reviewed the patient's lab results. 08/06/22 14:05 08/06/22 14:05 Labs: Lab Results 08/06/22 08/06/22 08/06/22 Range/Units 14:05 14:05 14:05 WBC 4.7 L (4.8-10.8) X10*3/uL RBC 3.81 L (4.20-5.50) X10*6/uL Hgb 11.9 L (12.0-16.0) g/dl Hct 35.5 L (37.0-47.0) % MCV 93.2 (80.0-98.0) fL MCH 31.2 (27.0-33.0) pg MCHC 33.5 (31.0-35.0) g/dl RDW 11.9 (11.0-16.0) % Plt Count 133 L (160-400) X10*3/uL MPV 10.4 (9.4-12.3) fL Immature Gran % (Auto) 0.2 (0.0-0.4) % Neut % (Auto) 63.5 (45-73) % Lymph % (Auto) 29.0 (20-40) % Mora % (Auto) 5.2 (2-11) % Eos % (Auto) 1.9 (0-4) % Baso % (Auto) 0.2 (0-2) % Lymph # (Auto) 1.4 (1.2-4.9) X10*3/uL Mora # (Auto) 0.2 (0.1-1.2) X10*3/uL Eos # (Auto) 0.1 (0.0-0.4) X10*3/uL Baso # (Auto) 0.0 (0.0-0.2) X10*3/uL Abs Immat Gran (auto) 0.01 (0.00-0.03) X10*3/uL Absolute Neuts (auto) 3.0 (2.0-8.3) x10*3/uL Absolute Nucleated RBC 0.000 (0.0-0.012) X10*3/uL Nucleated RBC % (auto) 0.0 (0.0-0.2) /100WBC Sodium 140 (135-145) mmol/L Potassium 4.6 (3.3-5.1) mmol/L Chloride 107 (96-108) mmol/L Carbon Dioxide 23 (22-29) mmol/L Anion Gap 15 (12-20) BUN 12 (9-16) mg/dL Creatinine 1.10 (0.5-1.4) mg/dL Estim Creat Clear Calc 42.7 Estimated GFR 50 Random Glucose 119 H (60-115) mg/dL Calcium 9.1 (8.4-10.2) mg/dL Total Bilirubin 0.7 (0.0-1.0) mg/dL Direct Bilirubin 0.3 (0.0-0.5) mg/dL AST 41 H (5-31) U/L ALT 63 H (0-31) U/L Alkaline Phosphatase 66 (39-117) U/L Troponin I High Sens 8.1 (<3.5-17.0) ng/L Total Protein 6.3 L (6.5-8.0) g/dL Albumin 3.7 (3.5-5.0) g/dL Independent Interpretation I performed an independent interpretation of an: EKG Discharge Plan Discharge Clinical Impression: Anxiety Patient Disposition: Home, Self-Care Instructions: Anxiety (ED) Additional Instructions: Please follow-up with your primary care physician tomorrow. If you have any worsening or new symptoms, please return to the emergency room or call 911 Prescriptions: No Action (DME) blood-glucose meter [FreeStyle Lite Meter] Kit See Rx Instructions miscellaneous .MEDSUPPLY Qty: 1 0RF Rx Instructions: Twice a day (DME) lancets [FreeStyle Lancets] 28 gauge misc See Rx Instructions .MEDSUPPLY Qty: 100 6RF Rx Instructions: Twice a day Digestive Advantage Probio-Pre 800 million cell tablet See Rx Instructions PO .COMPLEX 30 Days Qty: 30 3RF Rx Instructions: 1 tab po qd PO; flecainide 50 mg tablet 50 mg PO Q12H Qty: 180 3RF atorvastatin 80 mg tablet 80 mg PO BEDTIME Qty: 30 11RF (DME) FreeStyle Lite Strips Strip See Rx Instructions .MEDSUPPLY Qty: 200 10RF Rx Instructions: 2times a day metoprolol succinate 25 mg tablet extended release 24 hr 25 mg PO DAILY Qty: 90 3RF gabapentin 300 mg capsule 300 mg PO BEDTIME Qty: 90 1RF cholecalciferol (vitamin D3) 50 mcg (2,000 unit) capsule 50 mcg PO DAILY Qty: 90 4RF sucralfate 1 gram tablet 2 g PO DAILY Qty: 180 1RF Hold Instructions: Doctor's Order pantoprazole 40 mg tablet,delayed release (DR/EC) 40 mg PO QAM Qty: 90 1RF simethicone [Anti-Gas Ultra Strength] 180 mg capsule 180 mg PO TID Qty: 90 6RF Trulance 3 mg tablet 3 mg PO DAILY Qty: 30 6RF (DME) diabetic shoes See Rx Instructions .ROUTE .MEDSUPPLY Qty: 1 0RF Rx Instructions: extra depth orthopedic shoes ( 1 pair ) with customize heat molded multi density inner soles ( 3 pair) Dispense 1 Sig: As directed DX: And IDDM /polyneuropathy ( E11 0.42 ); hammertoe foot deformity ( M 20.41, and 20.42 ) pre ulcerative skin lesion ( L 85.1 ) Diagnosis ( E11 0.42 ) type 2 diabetes with polyneuropathy acarbose 25 mg tablet 25 mg PO TID 90 Days Qty: 270 1RF sennosides [senna] 8.6 mg tablet 17.2 mg PO BEDTIME PRN (Reason: for constipation) Qty: 60 0RF dicyclomine 20 mg tablet 20 mg PO QID Qty: 120 0RF ferrous sulfate 325 mg (65 mg iron) tablet 325 mg PO BID calcium carbonate-vitamin D3 600 mg(1,500mg) -400 unit tablet 1 tab PO BID trazodone 100 mg tablet 100 mg PO BEDTIME PRN bupropion HCl 200 mg tablet sustained-release 12 hr 200 mg PO DAILY oxybutynin chloride 5 mg tablet 5 mg PO BID ascorbic acid (vitamin C) 250 mg tablet 250 mg PO DAILY ondansetron HCl [Zofran] 4 mg tablet 4 mg PO BID-TID 30 Days Qty: 60 3RF escitalopram oxalate 10 mg tablet 10 mg PO QAM metformin 1,000 mg tablet 1,000 mg PO BIDWMEAL Qty: 60 5RF amlodipine [Norvasc] 5 mg tablet 10 mg PO DAILY aspirin [Adult Aspirin Regimen] 81 mg tablet,delayed release (DR/EC) 81 mg PO DAILY cyclosporine [Restasis] 0.05 % dropperette 1 drp ophthalmic (eye) BID
[2022-08-06 14:12] LABS: Basophils Percent Auto 0.2 % (0-2); Eosinophils Absolute Auto 0.1 X10*3/uL (0.0-0.4); Eosinophils Percent Auto 1.9 % (0-4); Hematocrit 35.5 % (37.0-47.0); Hemoglobin 11.9 g/dl (12.0-16.0); Imm Gran Abs Auto 0.01 X10*3/uL (0.00-0.03); Imm Gran Pct Auto 0.2 % (0.0-0.4); Lymphocytes Absolute Auto 1.4 X10*3/uL (1.2-4.9); MANUAL DIFF FLAG NO; Mean Corpuscular HGB Conc 33.5 g/dl (31.0-35.0); Mean Corpuscular Hemoglobin 31.2 pg (27.0-33.0); Mean Corpuscular Volume 93.2 fL (80.0-98.0); Mean Platelet Volume 10.4 fL (9.4-12.3); Monocytes Absolute Auto 0.2 X10*3/uL (0.1-1.2); Monocytes Percent Auto 5.2 % (2-11); Neutrophils Percent Auto 63.5 % (45-73); Platelet Count 133 X10*3/uL (160-400); Red Blood Count 3.81 X10*6/uL (4.20-5.50); Red Cell Distribution Width 11.9 % (11.0-16.0); White Blood Count 4.7 X10*3/uL (4.8-10.8)
[2022-08-06] MEDS: LORazepam 1 MG TABLET PO (14:20)
[2022-08-06 14:24] VITALS: BP 131/67; PULSE 80; RESP 15; O2SAT 99
[2022-08-06 14:32] LABS: Alanine Aminotransferase 63 U/L (0-31); Albumin Level 3.7 g/dL (3.5-5.0); Alkaline Phosphatase 66 U/L (39-117); Anion Gap 15 (12-20); Aspartate Amino Transferase 41 U/L (5-31); Bilirubin Direct 0.3 mg/dL (0.0-0.5); Bilirubin Total 0.7 mg/dL (0.0-1.0); Blood Urea Nitrogen 12 mg/dL (9-16); Calcium 9.1 mg/dL (8.4-10.2); Carbon Dioxide 23 mmol/L (22-29); Chloride 107 mmol/L (96-108); Creatinine Clr Calc Pharmacy 42.7; Estimated Glomerular Filt Rate 50; Glucose Random 119 mg/dL (60-115); Potassium 4.6 mmol/L (3.3-5.1); Sodium 140 mmol/L (135-145); Total Protein 6.3 g/dL (6.5-8.0)
[2022-08-06 14:39] LABS: Troponin-I High Sensitivity 8.1 ng/L (<3.5-17.0)
== END 2022-08-06 15:08 | disposition home or self-care (01) ==
PROVIDERS: Emergency Provider Emergency Medicine
DX: F41.9 Anxiety disorder, unspecified (principal); R42 Dizziness and giddiness; E11.8 Type 2 diabetes mellitus with unspecified complications; Z79.84 Long term (current) use of oral hypoglycemic drugs
CPT/HCPCS: 36415; 80048; 80076; 84484; 85025; 93005; 99283; 99284

== ENCOUNTER → 2022-10-26 07:46 | Outpatient (BNVA) | payer OTHER, SELFPAY | PROVIDERS: PCP Internal Medicine; Referring Provider Internal Medicine; Visit Provider Nurse Practitioner | DX: K59.04 Chronic idiopathic constipation (principal); K21.9 Gastro-esophageal reflux disease without esophagitis | CPT/HCPCS: 99212 ==

== ENCOUNTER → 2022-11-13 13:21 | Outpatient (BNVA) | payer OTHER, SELFPAY | PROVIDERS: PCP Internal Medicine; Referring Provider Internal Medicine; Visit Provider Internal Medicine | DX: I48.0 Paroxysmal atrial fibrillation (principal); I95.1 Orthostatic hypotension; I10 Essential (primary) hypertension; Z79.82 Long term (current) use of aspirin; Z79.899 Other long term (current) drug therapy; Z95.818 Presence of other cardiac implants and grafts | CPT/HCPCS: 93005; 99212 ==

== ENCOUNTER 2022-11-21 15:36 | Outpatient (REF) | payer OTHER, SELFPAY | END 2022-11-21 15:37 | disposition home or self-care (01) | LOC: HO.HHCX 15:36 | PROVIDERS: Visit Provider Student in an Organized Health Care Education/Training Program | DX: R07.1 Chest pain on breathing (principal); R42 Dizziness and giddiness; Z91.81 History of falling | CPT/HCPCS: 71046 ==

== ENCOUNTER 2022-11-24 09:27 | Outpatient (REF) | payer OTHER, SELFPAY | END 2022-11-24 09:28 | disposition home or self-care (01) | LOC: HO.LAB 09:27 | PROVIDERS: Visit Provider Student in an Organized Health Care Education/Training Program | DX: E11.9 Type 2 diabetes mellitus without complications (principal) | CPT/HCPCS: 36415; 82607 ==

== ENCOUNTER 2022-12-07 07:45 | Outpatient (AMB) | payer OTHER, SELFPAY ==
--- NOTE | 2022-12-07 08:02 | A.OFFVIS_ITS ---
Intake Vital Signs 12/07/22 08:12 Height 5 ft 3 in Weight 129 lb BMI 22.8 BP 140/59 H Blood Pressure Location Lt brachial Position Sitting Pulse 68 Intake Visit Reasons: 6 week fu Intake Note: Patient follow up chronic constipation Patient cc: abdominal pain with bloating, diarrhea on and off, some swallowing problems and dizziness. Data Modeling Architect Required: Yes Data Modeling Architect Name: Patricia Philip Accompanied by: Self / Same As Patient Allergies No Known Allergies Allergy (Verified 12/07/22 08:02) HPI 6 week fu HPI Details Assessment & Plan (1) Chronic idiopathic constipation: ?Code(s): K59.04 - Chronic idiopathic constipation ?Plan: Swedish # translates per pt request. She is now having frequent diarrhea with the Trulance. She is also having more abd pain and headaches. This is likely r/t dehydration and overdriving the bowel.? We will progress to Linzess 72mcg and titrate to response. She continues on her protonix qd with good gerd control and she has bentyl for cramping. ROV 6? week. She continues to hold the sucralfate. (2) GERD (gastroesophageal reflux disease): ?Code(s): K21.9 - Gastro-esophageal reflux disease without esophagitis ? ? ? Medications: New linaclotide (Linze ss) 72 mcg? PO QAM 30 caps 6RF K59.04 - Chronic i diopathic constipa tion ? On Hold plecanatide (Trula nce) ?? Hold Comme nt:? Doctor's Orde rH 3 mg? PO DAILY 30 tabs 6RF K59.04 - Chronic i diopathic constipa tion ? sennosides (senna) ?? Hold Comment:? Doctor's Order 17.2 mg (2 x 8.6 m g) PO BEDTIME PRN 60 tabs 0RF for co nstipation ? ? TODAY'S VISIT Swedish #[id number] Maureen She received the Linzess 72mcg and at this dose she feels she still has days of not being able to move her bowels, and occasionally she has diarrhea. BUT she has the CIC more. We will try increasing the LInzess to 145mcg (per pt request) but if this is too strong she is instructed to skip a days dose. We can also consider moving backwards and adding an OTC depending on her response. She continues to have frequent nausea, but this is r/t her episodes of dizziness. She says they have done many tests that all have been normal. I deal with a lot of issues. ROV 3 weeks. She continues on her bentyl and protonix. [facility] Medical History Anxiety Depression Diabetes type 2, controlled Diabetic polyneuropathy associated with type 2 diabetes mellitus Diabetic retinopathy associated with type 2 diabetes mellitus Dyslipidemia Non-toxic multinodular goiter Orthostatic hypotension Overweight (BMI 25.0-29.9) PAF (paroxysmal atrial fibrillation) Presence of Watchman left atrial appendage closure device Presence of Watchman left atrial appendage closure device Small intestinal bacterial overgrowth Subdural hematoma Syncope and collapse Vitamin D deficiency Surgical History H/O esophagogastroduodenoscopy History of cholecystectomy History of gastric bypass Hx of colonoscopy Hx of hand surgery Hx of knee surgery Family History Father CVD (cardiovascular disease) Mother Diabetes Social History Household Members: Spouse Alcohol intake: never Patient Tobacco Use Status: Current everyday Tobacco user Review of Systems Const Denies fatigue, Denies fever(s), Denies night sweats, Denies poor appetite and Denies weight loss ENT Reports Normal hearing present, Denies dental pain, Denies dysphagia, Reports dizziness, Denies hearing loss, Denies mouth pain, Denies odynophagia, Denies throat swelling, Denies tongue swelling and Reports other (Dentition adequate) Card Reports no additional complaints Resp Reports no additional complaints GI Denies abdominal pain, Denies melena, Reports bloating, Denies hematochezia, Reports constipation, Denies GI cramping, Denies dysphagia, Denies excessive flatus, Denies early satiety, Reports heartburn, Reports diarrhea, Reports nausea, Denies odynophagia, Denies vomiting and Denies hematemesis Skin/Breast Denies pruritus, Denies lesions, Denies rash and Denies jaundice Neuro Reports Normal hearing present, Denies Abnormal speech present and Reports dizziness Endo Denies fatigue Aller/Immun Denies throat swelling and Denies tongue swelling Physical Exam Vital Signs: Last Vital Signs Pulse 68 12/07/22 08:12 BP 140/59 H 12/07/22 08:12 BMI result Body Mass Index 22.8 Const General: cooperative, no acute distress, well developed and well groomed Nutritional Appearance: average body habitus and well nourished Orientation/consciousness: oriented to person, oriented to place and oriented to time Limitations: language barrier HEENT Head: Yes normocephalic and Yes atraumatic Eyes General: appearance normal, both eyes and all related structures Pupils: Equal, round and reactive pupils present Neck Neck: Yes normal visual inspection and Yes no lymphadenopathy Thyroid: Thyroid normal Resp Effort & Inspection: normal respiratory effort and able to speak in complete sentences Auscultation: clear to auscultation bilaterally Cardio Rate: regular rate Rhythm: regular rhythm Heart sounds: Normal, physiologic split S2 sound present Peripheral pulses: radial pulses present and posterior tibial pulses present GI Inspection: No distended and No Abdominal panniculus present Palpation (GI): Soft to palpation, nontender, no guarding, not rigid and No hepatosplenomegaly present Percussion: Yes normal to percussion Auscultation: normal bowel sounds Rectal Exam - Female: deferred Skin General skin exam: no rashes or lesions noted, turgor normal, skin not dry, no jaundice, No spider nevi and no striae Rashes: no rashes Nails: normal Neuro General: oriented to person, oriented to place and oriented to time Cranial nerves: Yes Equal, round and reactive pupils present and Yes Normal hearing present Speech: No Abnormal speech present Extrem General: Yes normal to inspection, No clubbing, No cyanosis and No edema Psych Appearance: grossly normal and well kempt Mental Status: mental status grossly normal Speech and movement: Normal speech and movement present Affect: normal affect Attitude: cooperative Thought process: Normal thought process present and not confabulating Thought content: Normal thought content present Insight: Limited insight present (Psych) Judgement: Limited judgement present (Psych) Assessment & Plan Assessment & Plan (1) Chronic idiopathic constipation: Code(s): K59.04 - Chronic idiopathic constipation Plan: Swedish #[id number] Maureen She received the Linzess 72mcg and at this dose she feels she still has days of not being able to move her bowels, and occasionally she has diarrhea. BUT she has the CIC more. We will try increasing the LInzess to 145mcg (per pt request) but if this is too strong she is instructed to skip a days dose. We can also consider moving backwards and adding an OTC depending on her response. She continues to have frequent nausea, but this is r/t her episodes of dizziness. She says they have done many tests that all have been normal. I deal with a lot of issues. ROV 3 weeks. She continues on her bentyl and protonix. (2) GERD (gastroesophageal reflux disease): Code(s): K21.9 - Gastro-esophageal reflux disease without esophagitis Medications: New linaclotide (Linzess) 145 mcg PO QAM 30 caps 6RF K59.04 - Chronic idiopathic constipation Discontinued sucralfate Discontinued Reason: Doctor's Order 2 grams (2 x 1 gram) PO DAILY 180 tabs 1RF R19.7 - Diarrhea, unspecified On Hold linaclotide (Linzess) Hold Comment: Doctor's Order 72 mcg PO QAM 30 caps 6RF K59.04 - Chronic idiopathic constipation Coding Level of Care Code Est Pt Level 3 (13016) Diagnoses Chronic idiopathic constipation K59.04 GERD (gastroesophageal reflux disease) K21.9
[2022-12-07 08:12] VITALS: BP 140/59; PULSE 68; BMI 22.8
== END 2022-12-07 08:26 | disposition home or self-care (01) ==
PROVIDERS: PCP Internal Medicine; Visit Provider Nurse Practitioner
DX: K59.04 Chronic idiopathic constipation (principal); K21.9 Gastro-esophageal reflux disease without esophagitis
CPT/HCPCS: 99213

== ENCOUNTER → 2022-12-07 07:45 | Outpatient (BNVA) | payer OTHER, SELFPAY | PROVIDERS: PCP Internal Medicine; Visit Provider Nurse Practitioner | DX: K59.04 Chronic idiopathic constipation (principal); K21.9 Gastro-esophageal reflux disease without esophagitis | CPT/HCPCS: 99212 ==

== ENCOUNTER 2022-12-20 16:25 | Outpatient (REF) | payer OTHER, SELFPAY ==
[2022-12-20 17:59] LABS: MANUAL DIFF FLAG NO
[2022-12-20 18:23] LABS: Basophils Percent Auto 0.2 % (0-2); Eosinophils Absolute Auto 0.1 X10*3/uL (0.0-0.4); Hematocrit 38.4 % (37.0-47.0); Hemoglobin 12.7 g/dl (12.0-16.0); Imm Gran Abs Auto 0.01 X10*3/uL (0.00-0.03); Imm Gran Pct Auto 0.2 % (0.0-0.4); Lymphocytes Absolute Auto 1.1 X10*3/uL (1.2-4.9); Lymphocytes Percent Auto 23.6 % (20-40); Mean Corpuscular HGB Conc 33.1 g/dl (31.0-35.0); Mean Corpuscular Hemoglobin 31.5 pg (27.0-33.0); Mean Corpuscular Volume 95.3 fL (80.0-98.0); Mean Platelet Volume 10.7 fL (9.4-12.3); Monocytes Absolute Auto 0.4 X10*3/uL (0.1-1.2); Monocytes Percent Auto 7.9 % (2-11); Neutrophils Percent Auto 66.1 % (45-73); Platelet Count 153 X10*3/uL (160-400); Red Blood Count 4.03 X10*6/uL (4.20-5.50); Red Cell Distribution Width 11.7 % (11.0-16.0); White Blood Count 4.6 X10*3/uL (4.8-10.8)
[2022-12-20 18:30] LABS: Alanine Aminotransferase 59 U/L (0-31); Albumin Level 4.2 g/dL (3.5-5.0); Alkaline Phosphatase 72 U/L (39-117); Anion Gap 16 (12-20); Aspartate Amino Transferase 34 U/L (5-31); Bilirubin Total 0.4 mg/dL (0.0-1.0); Blood Urea Nitrogen 34 mg/dL (9-16); Calcium 9.7 mg/dL (8.4-10.2); Carbon Dioxide 21 mmol/L (22-29); Chloride 106 mmol/L (96-108); Estimated Glomerular Filt Rate 39; Glucose Random 106 mg/dL (60-115); Iron 72 mcg/dL (30-160); Percent Iron Saturation 26 % (15-50); Potassium 4.6 mmol/L (3.3-5.1); Sodium 138 mmol/L (135-145); Total Iron Binding Capacity 277 mcg/dL (228-428); Total Protein 7.4 g/dL (6.5-8.0); Unsaturated Iron Binding 205 ug/dL
[2022-12-20 18:50] LABS: Ferritin 222 ng/mL (10-250); TSH reflex Free T4 0.36 uIU/mL (0.32-4.0)
[2022-12-20 19:02] LABS: Folate 6.9 ng/mL (> or = 4.0); Vitamin B12 395 pg/mL (200-900)
== END 2022-12-20 16:26 | disposition home or self-care (01) ==
LOC: HO.HHCL 16:25
PROVIDERS: Visit Provider Student in an Organized Health Care Education/Training Program
DX: E11.9 Type 2 diabetes mellitus without complications (principal); R42 Dizziness and giddiness
CPT/HCPCS: 36415; 80053; 82607; 82728; 82746; 83540; 84443; 85025

== ENCOUNTER 2022-12-21 11:19 | Outpatient (AMB) | payer OTHER, SELFPAY ==
--- NOTE | 2022-12-21 11:22 | MHC.OFFVIS ---
Intake Vital Signs 12/21/22 11:25 Height 5 ft 3 in Weight 126 lb 15.78 oz BMI 22.5 BP 110/56 L Blood Pressure Location Lt brachial Position Sitting Pulse 80 Intake Visit Reasons: f/up T2DM Intake Note: Patient present today to follow up on Type 2 Diabetes Mellitus. Last Diabetic Eye exam: Last Podiatry Visit: Random Glucose: 116 mg/dl HgA1C: 6.8 Remote Computer Terminal Operator Required: Yes Remote Computer Terminal Operator Language: Beninese Accompanied by: Self / Same As Patient Allergies No Known Allergies Allergy (Verified 12/21/22 11:28) Medication List - Last Reconciled 12/21/22 by Kurt Ramos MD acarbose 25 mg PO TID amlodipine (Norvasc) 10 mg PO DAILY aspirin (Adult Aspirin Regimen) 81 mg PO DAILY atorvastatin 80 mg PO BEDTIME Bacillus coagulans (Digestive Advantage Probiotics-Prebiotic) 1 tab po qd PO; 30 days blood sugar diagnostic (FreeStyle Lite Strips) 2times a day blood-glucose meter (FreeStyle Lite Meter kit) Twice a day bupropion HCl 200 mg PO DAILY calcium carbonate-vitamin D3 600 mg-10 mcg (400 unit) 1 tab PO BID cholecalciferol (vitamin D3) 50 mcg PO DAILY cyclosporine 0.05% (Restasis) 1 drp ophthalmic (eye) BID [diabetic shoes extra depth orthopedic shoes ( 1 pair ) with customize heat molded multi density inner soles ( 3 pair) Dispense 1 Sig: As directed DX: And IDDM /polyneuropathy ( E11 0.42 ); hammertoe foot deformity ( M 20.41, and 20.42 ) pre ulcerative skin lesion ( L 85.1 ) Diagnosis ( E11 0.42 ) type 2 diabetes with polyneuropathy] dicyclomine 20 mg PO QID escitalopram oxalate 10 mg PO QAM ferrous sulfate 325 mg PO BID flecainide 50 mg PO Q12H gabapentin 300 mg PO BEDTIME linaclotide (Linzess) 145 mcg PO QAM linaclotide (Linzess) 72 mcg PO QAM metformin 1,000 mg PO BID metoprolol succinate ER 25 mg PO DAILY ondansetron HCl (Zofran) 4 mg PO BID-TID 30 days oxybutynin chloride 5 mg PO BID pantoprazole 40 mg PO QAM plecanatide (Trulance) 3 mg PO DAILY sennosides (senna) 17.2 mg (2 x 8.6 mg) PO BEDTIME PRN simethicone (Anti-Gas Ultra Strength) 180 mg PO TID trazodone 100 mg PO BEDTIME PRN HPI HPI Comments History of Present Illness Details Patient is 67-year-old female with DM type 2 diagnosed 1989 who presents for management of diabetes. In June of 2020 she was switched to acarbose due to hypoglycemia. Past medical history: Diabetes type 2, obesity status post gastric bypass surgery in 2005, vitamin-D deficiency, depression, osteopenia, multinodular goiter, low TSH. Micro and macrovascular complications: Retinopathy, neuropathy Diabetes medications: Acarbose 25 mg t.i.d., metformin 1000mg BID Blood glucose monitoring: Unfortunately, patient did not bring glucometer or log book to follow-up visit Symptoms reported: occasional numbness, tingling, cramping in lower extremities Hypoglycemia: denies Hyperglycemia: denies urinary frequency, reports nocturia 2 times, denies polydypsia Specialist Icu - CDE education: long time ago Automobile Locator: denies Ophthalmology evaluation: [facility] Other specialists: Cardiology She does complain of early satiety and gastric distension Laboratory Tests 03/21/21 09/01/21 09:36 15:33 Creatinine 1.28 Estimated GFR 42 Hgb A1c (Clinic) 6.4 H PFSH Medical History Anxiety Depression Diabetes type 2, controlled Diabetic polyneuropathy associated with type 2 diabetes mellitus Diabetic retinopathy associated with type 2 diabetes mellitus Dyslipidemia Non-toxic multinodular goiter Orthostatic hypotension Overweight (BMI 25.0-29.9) PAF (paroxysmal atrial fibrillation) Presence of Watchman left atrial appendage closure device Presence of Watchman left atrial appendage closure device Small intestinal bacterial overgrowth Subdural hematoma Syncope and collapse Vitamin D deficiency Surgical History H/O esophagogastroduodenoscopy History of cholecystectomy History of gastric bypass Hx of colonoscopy Hx of hand surgery Hx of knee surgery Family History Father CVD (cardiovascular disease) Mother Diabetes Social History Household Members: Spouse Alcohol intake: never Patient Tobacco Use Status: Current everyday Tobacco user Physical Exam Vital Signs: Last Vital Signs Pulse 80 12/21/22 11:25 BP 110/56 L 12/21/22 11:25 BMI result Body Mass Index 22.5 Absence of Cushingoid features. Absence of acromegalic features. Neck exam reveals nl size thyroid about 15 gms. No thyroid nodules palpable. No carotid bruits present. Lungs CTA. Heart S1 S2, Reg R/R. No M/R/ G. Skin exam reveals absence of vitiligo or acanthosis nigricans. Abdominal exam reveals Soft NT/ND with NA BS. No organomegaly present. Neck Other: . Extrem Other: Visual exam of foot performed. No ulcerations or open lesions. No onchomycosis, no callouses.Pulses 2 + distally Sensation intact to monofilament exam. Vibratory sensation sensed is intact with 128 Hz tuning fork Results AMB Hemoglobin A1c AMB Hemoglobin A1c 6.8 % Last Edit by Paula Anguiano on 12/21/22 11:43 Results Reviewed Results Reviewed: 12/21/22 11:32 Glucose, Whole Blood Routine Laboratory Last Values Glucose (Clinic) 116 mg/dL (60-115) H 12/21/22 11:32 Assessment & Plan Assessment & Plan (1) Diabetes type 2, controlled: Code(s): E11.9 - Type 2 diabetes mellitus without complications Plan: This 67-year-old female with history of type 2 diabetes status post gastric bypass being treated with acarbose and metformin with excellent improved glycemic control and known microvascular complications namely neuropathy and retinopathy. Plan is to continue the current treatment. At this point, patient returned to the care of his primary care provider and back to endocrinology should his A1c deteriorate Orders: Orders AMB Hemoglobin A1c Today E11.9 - Type 2 diabetes mellitus without complications Medications: New [diabetic shoes] extra depth orthopedic shoes ( 1 pair ) with customize heat molded multi density inner soles ( 3 pair) Dispense 1 Sig: As directed DX: And IDDM /polyneuropathy ( E11 0.42 ); hammertoe foot deformity ( M 20.41, and 20.42 ) pre ulcerative skin lesion ( L 85.1 ) Diagnosis ( E11 0.42 ) type 2 diabetes with polyneuropathy 1 ea 0RF Coding Level of Care Code Est Pt Level 3 (13476) Diagnoses Diabetes type 2, controlled E11.9
[2022-12-21 11:25] VITALS: BP 110/56; PULSE 80; BMI 22.5
[2022-12-21 11:37] LABS: Glucose, Whole Blood 116 mg/dL (60-115)
== END 2022-12-21 11:50 | disposition home or self-care (01) ==
PROVIDERS: PCP Internal Medicine; Referring Provider Internal Medicine; Visit Provider Internal Medicine Endocrinology, Diabetes & Metabolism
DX: E11.9 Type 2 diabetes mellitus without complications (principal)
CPT/HCPCS: 99213

== ENCOUNTER → 2022-12-21 11:19 | Outpatient (BNVA) | payer OTHER, SELFPAY | PROVIDERS: Visit Provider Internal Medicine Endocrinology, Diabetes & Metabolism | DX: E11.9 Type 2 diabetes mellitus without complications (principal) | CPT/HCPCS: 82947; 83036; 99212 ==

== ENCOUNTER 2022-12-27 14:01 | Outpatient (REF) | payer OTHER, SELFPAY ==
--- NOTE | ~2022-12-27 | US_ITS ---
EXAMINATION: US EXTRACRANIAL CAROTID DUPLEX, BILATERAL CLINICAL INFORMATION: Dizziness. COMPARISON: None available. TECHNIQUE: Real-time ultrasound and Doppler techniques (integrating B-mode 2-D vascular images, Doppler spectral analysis and color-flow Doppler imaging) were utilized to interrogate the extracranial carotid arteries, the vertebral arteries and proximal subclavian arteries bilaterally. The degree of stenosis is determined by criteria similar to NASCET. FINDINGS: Right Side: 1. There is no atherosclerotic plaque seen in the bifurcation/proximal ICA region. 2. The common carotid artery PSV proximally is 101 cm/s and distally 88 cm/s. 3. The proximal internal carotid artery velocities are 65 cm/s systolic and 18 cm/s diastolic. 4. The proximal external carotid artery PSV is 74 cm/s. 5. The vertebral artery shows antegrade flow. 6. The subclavian artery waveforms are normal. Left Side: 1. There is no atherosclerotic plaque seen in the bifurcation/proximal ICA region. 2. The common carotid artery PSV proximally is 98 cm/s and distally 97 cm/s. 3. The proximal internal carotid artery velocities are 72 cm/s systolic and 19 cm/s diastolic. 4. The proximal external carotid artery PSV is 101 cm/s. 5. The vertebral artery shows antegrade flow. 6. The subclavian artery waveforms are normal. US/US carotid duplex BI IMPRESSION: 1. RIGHT: Normal right internal carotid artery without atherosclerotic plaque or hemodynamically significant stenosis. 2. LEFT: Normal left internal carotid artery without atherosclerotic plaque or hemodynamically significant stenosis.
== END 2022-12-27 14:02 | disposition home or self-care (01) ==
LOC: HO.US 14:01
PROVIDERS: PCP Internal Medicine; Visit Provider Student in an Organized Health Care Education/Training Program
DX: R42 Dizziness and giddiness (principal)
CPT/HCPCS: 93880

== ENCOUNTER 2022-12-28 08:19 | Outpatient (AMB) | payer OTHER, SELFPAY ==
--- NOTE | 2022-12-28 08:23 | MHC.OFFVIS ---
Intake Vital Signs 12/28/22 08:27 Height 5 ft 3 in Weight 126 lb 1.671 oz BMI 22.3 BP 131/60 Blood Pressure Location Lt brachial Position Sitting Pulse 60 Intake Visit Reasons: CIC/ IBS, GERD Intake Note: Dana presents in office as a est.patient for a f/u CIC,IBS, GERD PT CC: pt reports having nausea, constipation , diarrhea pt denies any other GI Issues Layout Former Required: No Accompanied by: Significant Other Allergies No Known Allergies Allergy (Verified 12/28/22 08:27) HPI CIC/ IBS, GERD HPI Details Assessment & Plan (1) Chronic idiopathic constipation: ?Code(s): K59.04 - Chronic idiopathic constipation ?Plan: Swedish #[id number] Maureen She received the Linzess 72mcg and at this dose she feels she still has days of not being able to move her bowels, and occasionally she has diarrhea. BUT she has the CIC more. We will try increasing the LInzess to 145mcg (per pt request) but if this is too strong she is instructed to skip a days dose. We can also consider moving backwards and adding an OTC depending on her response. She continues to have frequent nausea, but this is r/t her episodes of dizziness. She says they have done many tests that all have been normal. I deal with a lot of issues. ROV 3 weeks. She continues on her bentyl and protonix. (2) GERD (gastroesophageal reflux disease): ?Code(s): K21.9 - Gastro-esophageal reflux disease without esophagitis ? ? ? Medications: New linaclotide (Linze ss) 145 mcg? PO QAM 30 caps 6RF K59.04 - Chronic i diopathic constipa tion ? Discontinued sucralfate ?? Disc ontinued Reason:? Doctor's Order 2 grams (2 x 1 gra m) PO DAILY 180 ta bs 1RF R19.7 - Diarrhea, unspecified ? On Hold linaclotide (Linze ss) ?? Hold Commen t:? Doctor's Order 72 mcg? PO QAM 30 caps 6RF K59.04 - Chronic i diopathic constipa tion ? TODAY'S VISIT Swedish #male family member translates She feels that the LInzess at 145mcg is too strong so we will go back to the 72. N/V continues, she is diabetic and the nausea is worse at mealtimes. Will start a trial of reglan 5mg qidachs and titrate. GES ordered as well. She continues on her dicyclomine and her pantoprazole. ROV 2 weeks. [facility] Medical History Anxiety Depression Diabetes type 2, controlled Diabetic polyneuropathy associated with type 2 diabetes mellitus Diabetic retinopathy associated with type 2 diabetes mellitus Dyslipidemia Non-toxic multinodular goiter Orthostatic hypotension Overweight (BMI 25.0-29.9) PAF (paroxysmal atrial fibrillation) Presence of Watchman left atrial appendage closure device Presence of Watchman left atrial appendage closure device Small intestinal bacterial overgrowth Subdural hematoma Syncope and collapse Vitamin D deficiency Surgical History H/O esophagogastroduodenoscopy History of cholecystectomy History of gastric bypass Hx of colonoscopy Hx of hand surgery Hx of knee surgery Family History Father CVD (cardiovascular disease) Mother Diabetes Social History Household Members: Spouse Alcohol intake: never Patient Tobacco Use Status: Current everyday Tobacco user Review of Systems Const Denies fatigue, Denies fever(s), Reports malaise, Denies night sweats, Reports poor appetite and Denies weight loss ENT Reports Normal hearing present, Denies dental pain, Reports dysphagia, Denies hearing loss, Denies mouth pain, Denies odynophagia, Denies throat swelling, Denies tongue swelling and Reports other (Dentition adequate) Card Reports no additional complaints Resp Reports no additional complaints GI Denies abdominal pain, Denies melena, Reports bloating, Denies hematochezia, Reports constipation, Denies GI cramping, Reports dysphagia, Denies excessive flatus, Denies early satiety, Reports heartburn, Denies diarrhea, Reports nausea, Denies odynophagia, Reports vomiting and Denies hematemesis Skin/Breast Denies pruritus, Denies lesions, Denies rash and Denies jaundice Neuro Reports Normal hearing present and Denies Abnormal speech present Endo Denies fatigue Aller/Immun Denies throat swelling and Denies tongue swelling Physical Exam Vital Signs: Last Vital Signs Pulse 60 12/28/22 08:27 BP 131/60 12/28/22 08:27 BMI result Body Mass Index 22.3 Const General: cooperative, no acute distress, well developed, in distress, tired appearing and well groomed Nutritional Appearance: well nourished and thin Orientation/consciousness: oriented to person, oriented to place and oriented to time Limitations: language barrier HEENT Head: Yes normocephalic and Yes atraumatic Eyes General: appearance normal, both eyes and all related structures Pupils: Equal, round and reactive pupils present Neck Neck: Yes normal visual inspection and Yes no lymphadenopathy Thyroid: Thyroid normal Resp Effort & Inspection: normal respiratory effort and able to speak in complete sentences Auscultation: clear to auscultation bilaterally Cardio Rate: regular rate Rhythm: regular rhythm Heart sounds: Normal, physiologic split S2 sound present Peripheral pulses: radial pulses present and posterior tibial pulses present GI Inspection: No distended and No Abdominal panniculus present Palpation (GI): Soft to palpation, nontender, no guarding, not rigid and No hepatosplenomegaly present Percussion: Yes normal to percussion Auscultation: normal bowel sounds Rectal Exam - Female: deferred Skin General skin exam: no rashes or lesions noted, turgor normal, skin not dry, no jaundice, No spider nevi and no striae Rashes: no rashes Nails: normal Neuro General: oriented to person, oriented to place and oriented to time Cranial nerves: Yes Equal, round and reactive pupils present and Yes Normal hearing present Speech: No Abnormal speech present Extrem General: Yes normal to inspection, No clubbing, No cyanosis and No edema Psych Appearance: grossly normal and well kempt Mental Status: mental status grossly normal Speech and movement: Normal speech and movement present Affect: Blunted affect present Attitude: cooperative (Somewhat withdrawn ) Thought process: Normal thought process present and not confabulating Thought content: Normal thought content present Insight: Limited insight present (Psych) Judgement: Limited judgement present (Psych) Assessment & Plan Assessment & Plan (1) Chronic idiopathic constipation: Code(s): K59.04 - Chronic idiopathic constipation Plan: Swedish #male family member translates She feels that the LInzess at 145mcg is too strong so we will go back to the 72. N/V continues, she is diabetic and the nausea is worse at mealtimes. Will start a trial of reglan 5mg qidachs and titrate. GES ordered as well. She continues on her dicyclomine and her pantoprazole. ROV 2 weeks. (2) Nausea and vomiting: Code(s): R11.2 - Nausea with vomiting, unspecified (3) GERD (gastroesophageal reflux disease): Code(s): K21.9 - Gastro-esophageal reflux disease without esophagitis (4) Diabetic polyneuropathy associated with type 2 diabetes mellitus: Code(s): E11.42 - Type 2 diabetes mellitus with diabetic polyneuropathy Orders: Orders NM gastric emptying study Today R11.2 - Nausea with vomiting, unspecified Medications: New metoclopramide HCl (Reglan) Provider aware of possible interactions with antidepressants and is monitoring 5 mg PO QIDACHS 120 tabs 3RF E11.42 - Type 2 diabetes mellitus with diabetic polyneuropathy, R11.2 - Nausea with vomiting, unspecified Discontinued plecanatide (Trulance) Discontinued Reason: Doctor's Order 3 mg PO DAILY 30 tabs 6RF K59.04 - Chronic idiopathic constipation linaclotide (Linzess) Discontinued Reason: Doctor's Order 145 mcg PO QAM 30 caps 6RF K59.04 - Chronic idiopathic constipation Resumed linaclotide (Linzess) 72 mcg PO QAM 30 caps 6RF K59.04 - Chronic idiopathic constipation Coding Level of Care Code Est Pt Level 3 (94881) Diagnoses Chronic idiopathic constipation K59.04 Nausea and vomiting R11.2 GERD (gastroesophageal reflux disease) K21.9 Diabetic polyneuropathy associated with type 2 diabetes mellitus E11.42
[2022-12-28 08:27] VITALS: BP 131/60; PULSE 60; BMI 22.3
== END 2022-12-28 09:17 | disposition home or self-care (01) ==
PROVIDERS: PCP Internal Medicine; Visit Provider Nurse Practitioner
DX: K59.04 Chronic idiopathic constipation (principal); R11.2 Nausea with vomiting, unspecified; K21.9 Gastro-esophageal reflux disease without esophagitis; E11.42 Type 2 diabetes mellitus with diabetic polyneuropathy
CPT/HCPCS: 99213

== ENCOUNTER → 2022-12-28 08:19 | Outpatient (BNVA) | payer OTHER, SELFPAY | PROVIDERS: PCP Internal Medicine; Visit Provider Nurse Practitioner | DX: K59.04 Chronic idiopathic constipation (principal); K21.9 Gastro-esophageal reflux disease without esophagitis; R11.2 Nausea with vomiting, unspecified; E11.42 Type 2 diabetes mellitus with diabetic polyneuropathy; E11.319 Type 2 diabetes mellitus with unspecified diabetic retinopathy without macular edema | CPT/HCPCS: 99212 ==

== ENCOUNTER 2023-01-11 08:09 | Outpatient (AMB) | payer OTHER, SELFPAY ==
--- NOTE | 2023-01-11 08:13 | MHC.OFFVIS ---
Intake Vital Signs 01/11/23 08:26 Height 5 ft 3 in Weight 126 lb BMI 22.3 BP 130/58 L Blood Pressure Location Lt brachial Position Sitting Pulse 60 Intake Visit Reasons: Follow up 2 weeks Intake Note: Patient 2 weeks follow up constipation. Patient cc: abdominal pain on and off, constipation on and off, and swallowing problems with dry food. Accounts Receivable Coordinator Required: No Accompanied by: Spouse Allergies No Known Allergies Allergy (Verified 01/11/23 08:12) HPI Follow up 2 weeks HPI Details Assessment & Plan (1) Chronic idiopathic constipation: ?Code(s): K59.04 - Chronic idiopathic constipation ?Plan: Faroese #[id number] Maureen She received the Linzess 72mcg and at this dose she feels she still has days of not being able to move her bowels, and occasionally she has diarrhea. BUT she has the CIC more. We will try increasing the LInzess to 145mcg (per pt request) but if this is too strong she is instructed to skip a days dose. We can also consider moving backwards and adding an OTC depending on her response. She continues to have frequent nausea, but this is r/t her episodes of dizziness. She says they have done many tests that all have been normal. I deal with a lot of issues. ROV 3 weeks. She continues on her bentyl and protonix. (2) GERD (gastroesophageal reflux disease): ?Code(s): K21.9 - Gastro-esophageal reflux disease without esophagitis ? ? ? Medications: New linaclotide (Linze ss) 145 mcg? PO QAM 30 caps 6RF K59.04 - Chronic i diopathic constipa tion ? Discontinued sucralfate ?? Disc ontinued Reason:? Doctor's Order 2 grams (2 x 1 gra m) PO DAILY 180 ta bs 1RF R19.7 - Diarrhea, unspecified ? On Hold linaclotide (Linze ss) ?? Hold Commen t:? Doctor's Order 72 mcg? PO QAM 30 caps 6RF K59.04 - Chronic i diopathic constipa tion ? TODAY'S VISIT Faroese #Male family member translates per pt request. She is now doing well on her Linzess 145mcg and is satisfied with her GI regimen. She also continues on her bentyl and protonix. She did not have any difficulty in cessation of the sucralfate. ROV 4 mos. [facility] Medical History Anxiety Depression Diabetes type 2, controlled Diabetic polyneuropathy associated with type 2 diabetes mellitus Diabetic retinopathy associated with type 2 diabetes mellitus Dyslipidemia Non-toxic multinodular goiter Orthostatic hypotension Overweight (BMI 25.0-29.9) PAF (paroxysmal atrial fibrillation) Presence of Watchman left atrial appendage closure device Presence of Watchman left atrial appendage closure device Small intestinal bacterial overgrowth Subdural hematoma Syncope and collapse Vitamin D deficiency Surgical History H/O esophagogastroduodenoscopy History of cholecystectomy History of gastric bypass Hx of colonoscopy Hx of hand surgery Hx of knee surgery Family History Father CVD (cardiovascular disease) Mother Diabetes Social History Household Members: Spouse Alcohol intake: never Patient Tobacco Use Status: Current everyday Tobacco user Review of Systems Const Denies fatigue, Denies fever(s), Denies night sweats, Denies poor appetite and Denies weight loss ENT Reports Normal hearing present, Denies dental pain, Denies dysphagia, Reports dizziness, Denies hearing loss, Denies mouth pain, Denies odynophagia, Denies throat swelling, Denies tongue swelling and Reports other (Dentition adequate) Card Reports lightheadedness Resp Reports no additional complaints GI Denies abdominal pain, Denies melena, Denies bloating, Denies hematochezia, Reports constipation, Denies GI cramping, Denies dysphagia, Denies excessive flatus, Denies early satiety, Reports heartburn, Denies diarrhea, Reports nausea, Denies odynophagia, Denies vomiting and Denies hematemesis Skin/Breast Denies pruritus, Denies lesions, Denies rash and Denies jaundice Neuro Reports Normal hearing present, Denies Abnormal speech present and Reports dizziness Endo Denies fatigue Aller/Immun Denies throat swelling and Denies tongue swelling Physical Exam Vital Signs: Last Vital Signs Pulse 60 01/11/23 08:26 BP 130/58 L 01/11/23 08:26 BMI result Body Mass Index 22.3 Const General: cooperative, no acute distress, well developed and well groomed Nutritional Appearance: average body habitus and well nourished Orientation/consciousness: oriented to person, oriented to place and oriented to time Limitations: language barrier HEENT Head: Yes normocephalic and Yes atraumatic Eyes General: appearance normal, both eyes and all related structures Pupils: Equal, round and reactive pupils present Neck Neck: Yes normal visual inspection and Yes no lymphadenopathy Thyroid: Thyroid normal Resp Effort & Inspection: normal respiratory effort and able to speak in complete sentences Auscultation: clear to auscultation bilaterally Cardio Rate: regular rate Rhythm: regular rhythm Heart sounds: Normal, physiologic split S2 sound present Peripheral pulses: radial pulses present and posterior tibial pulses present GI Inspection: No distended and No Abdominal panniculus present Palpation (GI): Soft to palpation, nontender, no guarding, not rigid and No hepatosplenomegaly present Percussion: Yes normal to percussion Auscultation: normal bowel sounds Rectal Exam - Female: deferred Skin General skin exam: no rashes or lesions noted, turgor normal, skin not dry, no jaundice, No spider nevi and no striae Rashes: no rashes Nails: normal Neuro General: oriented to person, oriented to place and oriented to time Cranial nerves: Yes Equal, round and reactive pupils present and Yes Normal hearing present Speech: No Abnormal speech present Extrem General: Yes normal to inspection, No clubbing, No cyanosis and No edema Psych Appearance: grossly normal and well kempt Mental Status: mental status grossly normal Speech and movement: Normal speech and movement present Affect: normal affect Attitude: cooperative Thought process: Normal thought process present and not confabulating Thought content: Normal thought content present Insight: Fair insight present (Psych) Judgement: Fair judgement present (Psych) Assessment & Plan Assessment & Plan (1) Chronic idiopathic constipation: Code(s): K59.04 - Chronic idiopathic constipation Plan: ..Faroese #Male family member translates per pt request. She is now doing well on her Linzess 145mcg and is satisfied with her GI regimen. She also continues on her bentyl and protonix. She did not have any difficulty in cessation of the sucralfate. She continues to have frequent nausea but this is driven by her vertigo/dizziness and not by any GI pathology. ROV 4 mos. (2) GERD (gastroesophageal reflux disease): Code(s): K21.9 - Gastro-esophageal reflux disease without esophagitis Coding Level of Care Code Est Pt Level 3 (44686) Diagnoses Chronic idiopathic constipation K59.04 GERD (gastroesophageal reflux disease) K21.9
[2023-01-11 08:26] VITALS: BP 130/58; PULSE 60; BMI 22.3
== END 2023-01-11 08:46 | disposition home or self-care (01) ==
PROVIDERS: PCP Internal Medicine; Visit Provider Nurse Practitioner
DX: K59.04 Chronic idiopathic constipation (principal); K21.9 Gastro-esophageal reflux disease without esophagitis
CPT/HCPCS: 99213

== ENCOUNTER → 2023-01-11 08:09 | Outpatient (BNVA) | payer OTHER, SELFPAY | PROVIDERS: PCP Internal Medicine; Visit Provider Nurse Practitioner | DX: K59.04 Chronic idiopathic constipation (principal); K21.9 Gastro-esophageal reflux disease without esophagitis; Z79.899 Other long term (current) drug therapy | CPT/HCPCS: 99212 ==

== ENCOUNTER → 2023-01-23 07:43 | Outpatient (REF) | payer OTHER, SELFPAY ==
--- NOTE | ~2023-01-23 | NM_ITS ---
EXAMINATION: RADIONUCLIDE SOLID FOOD GASTRIC EMPTYING 4-HOUR STUDY CLINICAL INFORMATION: Nausea and vomiting, unspecified. History of gastric bypass in 2006. COMPARISON: Prior gastric emptying study done on 06/05/2019.. TECHNIQUE: A standard meal consisting of 3 oz of Egg Beaters brand tagged with 1000 microcuries Tc-99m Sulfur Colloid, 8 oz water and 2 slices of toast with jelly was administered orally to the patient. Images were obtained using a dual head gamma camera in the anterior and posterior projections over of the stomach immediately post ingestion and at hourly intervals up to 4 hours post ingestion. The anterior and posterior counts at each time interval were averaged using the geometric mean and expressed as percentage of the immediate post ingestion counts. FINDINGS: There is good visualization of activity in the stomach immediately post ingestion. As the study progresses, there is delayed clearance of activity from the stomach and delayed visualization of progressively increasing small bowel activity. By the end of the study, there is significant retention noted in the stomach. Retention in the stomach at each time interval was: 1 hour 64% (normal 37%-90%) 2 hours 52% (normal 30%-60%) 3 hours 36% 4 hours 29% (normal 0%-10%) NM/RI gastric emptying study IMPRESSION: Abnormal delayed 4 hour gastric emptying study, new since the prior study dated 06/05/2019. (For solid meal, rapid gastric emptying is less than 30% at 60 minutes. Delayed gastric emptying criteria is more than 60% remaining at 120 minutes or more than 10% at 240 minutes. The 4-hour value is the best discriminator of a normal or abnormal result). Gastric emptying study grading per JNMT Consensus Recommendations in 2008 (https://tech.snmjournals.org/content/36//44) Grade 1 (mild retention): 11-20% at 4h Grade 2 (moderate retention): 21-35% at 4h Grade 3 (severe retention): 36-50% at 4h Grade 4 (very severe retention): >50% retention at 4h
== END ==
LOC: HO.NUCMED 07:43
PROVIDERS: PCP Internal Medicine; Visit Provider Nurse Practitioner
DX: R11.2 Nausea with vomiting, unspecified (principal)
CPT/HCPCS: 78264; A9541

== ENCOUNTER 2023-02-18 16:22 | Outpatient (REF) | payer OTHER, SELFPAY ==
[2023-02-18 17:35] LABS: MANUAL DIFF FLAG NO
[2023-02-18 17:55] LABS: Basophils Percent Auto 0.2 % (0-2); Eosinophils Absolute Auto 0.1 X10*3/uL (0.0-0.4); Eosinophils Percent Auto 1.9 % (0-4); Hematocrit 36.7 % (37.0-47.0); Hemoglobin 12.1 g/dl (12.0-16.0); Imm Gran Abs Auto 0.01 X10*3/uL (0.00-0.03); Imm Gran Pct Auto 0.2 % (0.0-0.4); Lymphocytes Absolute Auto 1.1 X10*3/uL (1.2-4.9); Mean Corpuscular Hemoglobin 31.9 pg (27.0-33.0); Mean Corpuscular Volume 96.8 fL (80.0-98.0); Mean Platelet Volume 10.5 fL (9.4-12.3); Monocytes Absolute Auto 0.3 X10*3/uL (0.1-1.2); Monocytes Percent Auto 7.1 % (2-11); Neutrophils Absolute Auto 3.1 x10*3/uL (2.0-8.3); Neutrophils Percent Auto 66.6 % (45-73); Platelet Count 156 X10*3/uL (160-400); Red Blood Count 3.79 X10*6/uL (4.20-5.50); Red Cell Distribution Width 11.9 % (11.0-16.0); White Blood Count 4.7 X10*3/uL (4.8-10.8)
[2023-02-18 18:07] LABS: Alanine Aminotransferase 119 U/L (0-31); Albumin Level 4.2 g/dL (3.5-5.0); Alkaline Phosphatase 73 U/L (39-117); Anion Gap 15 (12-20); Aspartate Amino Transferase 67 U/L (5-31); Bilirubin Total 0.4 mg/dL (0.0-1.0); Blood Urea Nitrogen 21 mg/dL (9-16); Calcium 9.8 mg/dL (8.4-10.2); Carbon Dioxide 24 mmol/L (22-29); Chloride 104 mmol/L (96-108); Estimated Glomerular Filt Rate 46; Glucose Random 125 mg/dL (60-115); Potassium 4.5 mmol/L (3.3-5.1); Sodium 138 mmol/L (135-145); Total Protein 7.6 g/dL (6.5-8.0)
[2023-02-19 07:57] LABS: Syphilis Screen Nonreactive (Nonreactive)
[2023-02-19 08:23] LABS: HBS Num1 7.03 mIU/mL (0-7.99); HBsAGNum1 0.34 S/CO (0.00-0.99); HIV AB/AG Nonreactive (Nonreactive); HIV Num 1 0.07 S/CO (0.00-0.99); Hepatitis B Core Antibody Nonreactive (Nonreactive); Hepatitis B Surface Antigen Negative (Negative); ~HepC Num1 0.14 S/CO (0.00-0.79); ~Hepatitis B Surface Antibody NONREACTIVE (Nonreactive); ~Hepatitis C Antibody Nonreactive (Nonreactive)
== END 2023-02-18 16:23 | disposition home or self-care (01) ==
LOC: HO.HHCL 16:22
PROVIDERS: Visit Provider Student in an Organized Health Care Education/Training Program
DX: D69.6 Thrombocytopenia, unspecified (principal)
CPT/HCPCS: 36415; 80053; 85025; 86704; 86706; 86780; 86803; 87340; 87389

== ENCOUNTER 2023-05-30 14:05 | Outpatient (AMB) | payer OTHER, SELFPAY ==
--- NOTE | 2023-05-30 14:09 | A.OFFVIS_ITS ---
Intake Vital Signs 05/30/23 14:10 Height 5 ft 3 in Weight 132 lb 4.438 oz BMI 23.4 BP 154/70 H Blood Pressure Location Lt brachial Position Sitting Pulse 55 Intake Visit Reasons: Follow up 4 months Intake Note: Patient returns to in office visit today in 4 months follow up of constipation. CC: Patient c/o constipation diarrhea, epigastric pain, and chocking when swallowing solids and sometimes with liquids. Tactical/Mobile Watch Officer Required: Yes Tactical/Mobile Watch Officer Name: Spouse Accompanied by: Spouse Allergies No Known Allergies Allergy (Verified 05/30/23 14:13) HPI Follow up 4 months HPI Details Assessment & Plan (1) Chronic idiopathic constipation: Code(s): K59.04 - Chronic idiopathic constipation Plan: ..Ivorian #Male family member translates per pt request. She is now doing well on her Linzess 145mcg and is satisfied with her GI regimen. She also continues on her bentyl and protonix. She did not have any difficulty in cessation of the sucralfate. She continues to have frequent nausea but this is driven by her vertigo/dizziness and not by any GI pathology. ROV 4 mos. (2) GERD (gastroesophageal reflux diseas e): Code(s): K21.9 - Gastro-esophageal reflux disease without esophagitis TODAY'S VISIT Ivorian #Male family member translates per pt request. 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 The diarrhea has been somewhat more prevalent. I ask if she knows what might have changed since last time I saw her and she says she has been drinking milk because her stomach galloway but she thinks the milk might be giving her diarrhea. I have asked her to stop drinking milk so we can see if this is the problem due to lactose intolerance. I will also send her for some food allergy testing. She is currently on Linzess 72 micro g and she is taking it every day. It is unclear whether she forwarded the message to her nurses to stop her senna and this could also be part of the problem. She says she will have solid stools about twice a week. She generally has 4 days of diarrhea with 3 days of constipation but sometimes this reverses. She continues on her pantoprazole every day but I think we need to change it to avoid the stomach burning. I will see if we can get her on AcipHex and also give her famotidine to take when her stomach galloway to try to get her away from the milk. Return office visit in 4 weeks to see how she is doing. 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 [facility] Medical History Presence of Watchman left atrial appendage closure device Small intestinal bacterial overgrowth Orthostatic hypotension Presence of Watchman left atrial appendage closure device Subdural hematoma Syncope and collapse PAF (paroxysmal atrial fibrillation) Vitamin D deficiency Anxiety Depression Overweight (BMI 25.0-29.9) Dyslipidemia Non-toxic multinodular goiter Diabetic polyneuropathy associated with type 2 diabetes mellitus Diabetic retinopathy associated with type 2 diabetes mellitus Diabetes type 2, controlled Surgical History History of cholecystectomy H/O esophagogastroduodenoscopy Hx of colonoscopy History of gastric bypass Hx of knee surgery Hx of hand surgery Family History Father CVD (cardiovascular disease) Mother Diabetes Social History Household Members: Spouse Alcohol intake: never Patient Tobacco Use Status: Current everyday Tobacco user Review of Systems Const Denies fatigue, Denies fever(s), Denies night sweats, Denies poor appetite and Reports weight loss ENT Reports Normal hearing present, Denies dental pain, Denies dysphagia, Denies hearing loss, Denies mouth pain, Denies odynophagia, Denies throat swelling, Denies tongue swelling and Reports other (Dentition adequate) Card Reports no additional complaints Resp Reports no additional complaints GI Details: stomach burning Denies abdominal pain, Denies melena, Denies bloating, Denies hematochezia, Reports constipation, Denies GI cramping, Denies dysphagia, Denies excessive flatus, Denies early satiety, Reports heartburn, Reports diarrhea, Denies nausea, Denies odynophagia, Denies vomiting and Denies hematemesis Skin/Breast Denies pruritus, Denies lesions, Denies rash and Denies jaundice Neuro Reports Normal hearing present and Denies Abnormal speech present Endo Denies fatigue Aller/Immun Denies throat swelling and Denies tongue swelling Physical Exam Vital Signs: Last Vital Signs Pulse 55 05/30/23 14:10 BP 154/70 H 05/30/23 14:10 BMI result Body Mass Index 23.4 Const General: cooperative, no acute distress, well developed and well groomed Nutritional Appearance: average body habitus and well nourished Orientation/consciousness: oriented to person, oriented to place and oriented to time Limitations: language barrier HEENT Head: Yes normocephalic and Yes atraumatic Eyes General: appearance normal, both eyes and all related structures Pupils: Equal, round and reactive pupils present Neck Neck: Yes normal visual inspection and Yes no lymphadenopathy Thyroid: Thyroid normal Resp Effort & Inspection: normal respiratory effort and able to speak in complete sentences Auscultation: clear to auscultation bilaterally Cardio Rate: regular rate Rhythm: regular rhythm Heart sounds: Normal, physiologic split S2 sound present Peripheral pulses: radial pulses present and posterior tibial pulses present GI Inspection: No distended and No Abdominal panniculus present Palpation (GI): Soft to palpation, nontender, no guarding, not rigid and No hepatosplenomegaly present Percussion: Yes normal to percussion Auscultation: normal bowel sounds Rectal Exam - Female: deferred Skin General skin exam: no rashes or lesions noted, turgor normal, skin not dry, no jaundice, No spider nevi and no striae Rashes: no rashes Nails: normal Neuro General: oriented to person, oriented to place and oriented to time Cranial nerves: Yes Equal, round and reactive pupils present and Yes Normal hearing present Speech: No Abnormal speech present Extrem General: Yes normal to inspection, No clubbing, No cyanosis and No edema Psych Appearance: grossly normal and well kempt Mental Status: mental status grossly normal Speech and movement: Normal speech and movement present Affect: normal affect Attitude: cooperative Thought process: Normal thought process present and not confabulating Thought content: Normal thought content present Insight: Limited insight present (Psych) and Poor insight present (Psych) Judgement: Limited judgement present (Psych) and Poor judgement present (Psych) Assessment & Plan Assessment & Plan (1) Chronic idiopathic constipation: Code(s): K59.04 - Chronic idiopathic constipation (2) GERD (gastroesophageal reflux disease): Code(s): K21.9 - Gastro-esophageal reflux disease without esophagitis (3) History of gastric bypass: Code(s): Z98.84 - Bariatric surgery status (4) Diarrhea: Code(s): R19.7 - Diarrhea, unspecified Plan Ivorian #Male family member translates per pt request. 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 The diarrhea has been somewhat more prevalent. I ask if she knows what might have changed since last time I saw her and she says she has been drinking milk because her stomach galloway but she thinks the milk might be giving her diarrhea. I have asked her to stop drinking milk so we can see if this is the problem due to lactose intolerance. I will also send her for some food allergy testing. She is currently on Linzess 72 micro g and she is taking it every day. It is unclear whether she forwarded the message to her nurses to stop her senna and this could also be part of the problem. She says she will have solid stools about twice a week. She generally has 4 days of diarrhea with 3 days of constipation but sometimes this reverses. She continues on her pantoprazole every day but I think we need to change it to avoid the stomach burning. I will see if we can get her on AcipHex and also give her famotidine to take when her stomach galloway to try to get her away from the milk. Return office visit in 4 weeks to see how she is doing. 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 Orders: Orders C Reactive Protein Today R19.7 - Diarrhea, unspecified Transglutaminase Ab IgG Today R19.7 - Diarrhea, unspecified Rast Allergen Today R19.7 - Diarrhea, unspecified Transglutaminase IgA Today R19.7 - Diarrhea, unspecified Medications: New famotidine (Pepcid) 40 mg PO BEDTIME 30 days 30 tabs 6RF K21.9 - Gastro- esophageal reflux disease without esophagitis rabeprazole (AcipHex) 20 mg PO BID 60 tabs 6RF K21.9 - Gastro-esophageal reflux disease without esophagitis Refilled linaclotide (Linzess) 72 mcg PO QAM 30 caps 6RF K59.04 - Chronic idiopathic constipation metoclopramide HCl 5 mg PO QID 120 tabs 6RF E11.42 - Type 2 diabetes mellitus with diabetic polyneuropathy, R11.2 - Nausea with vomiting, unspecified simethicone 180 mg PO TID 90 caps 6RF R14.0 - Abdominal distension (gaseous) dicyclomine 20 mg PO QID 120 tabs 2RF Discontinued pantoprazole Discontinued Reason: Doctor's Order 40 mg PO QAM 90 tabs 3RF Patient Instructions: Dana Moy Estoy cambiando algunos de [facility] medicamentos: 1. Suspenda el pantoprazol cuando reciba un nuevo medicamento llamado rabeprazol. 2. Deje de sen: ?aseg?rese de que garcia enfermera lo sepa! 3. Saniya de anoop leche y cuando te tanner el est?sabrina michelle famotidina, que es otro medicamento nuevo que te env?o. 4. Te env?o a que te hagas unas pruebas de alergia alimentaria. Quiero verte de regreso en 4 semanas. I am changing some of your medications: 1. Stop pantoprazole when you receive a new medicine called rabeprazole. 2. Stop senna: Make sure your nurse knows! 3. Stop drinking milk and when your stomach galloway, take famotidine, which is another new medicine that I am sending you. 4. I send you to take some food allergy tests. I want to see you back in 4 weeks. Coding Level of Care Code Est Pt Level 3 (89577) Diagnoses Chronic idiopathic constipation K59.04 GERD (gastroesophageal reflux disease) K21.9 History of gastric bypass Z98.84 Diarrhea R19.7
[2023-05-30 14:10] VITALS: BP 154/70; PULSE 55; BMI 23.4
== END 2023-05-30 14:54 | disposition home or self-care (01) ==
PROVIDERS: PCP Internal Medicine; Visit Provider Nurse Practitioner
DX: K59.04 Chronic idiopathic constipation (principal); K21.9 Gastro-esophageal reflux disease without esophagitis; Z98.84 Bariatric surgery status; R19.7 Diarrhea, unspecified
CPT/HCPCS: 99213

== ENCOUNTER → 2023-05-30 14:05 | Outpatient (BNVA) | payer OTHER, SELFPAY | PROVIDERS: PCP Internal Medicine; Visit Provider Nurse Practitioner | DX: K59.04 Chronic idiopathic constipation (principal); K21.9 Gastro-esophageal reflux disease without esophagitis; R19.7 Diarrhea, unspecified; Z98.84 Bariatric surgery status | CPT/HCPCS: 99212 ==

== ENCOUNTER 2023-06-25 13:24 | Outpatient (REF) | payer OTHER, SELFPAY ==
[2023-06-25 14:39] LABS: C Reactive Protein < 0.04 mg/dL (< or = 0.50)
[2023-06-27 18:24] LABS: Transglutaminase Ab IgG 5.8 U/mL; Transglutaminase IgA <1.0 U/mL
== END 2023-06-25 13:25 | disposition home or self-care (01) ==
LOC: HO.LAB 13:24
PROVIDERS: Visit Provider Nurse Practitioner
DX: R19.7 Diarrhea, unspecified (principal); Z91.09 Other allergy status, other than to drugs and biological substances
CPT/HCPCS: 36415; 86003; 86140; 86364

== ENCOUNTER 2023-06-27 14:17 | Outpatient (AMB) | payer OTHER, SELFPAY ==
[2023-06-27 14:23] VITALS: BP 127/60; PULSE 48; BMI 23.0
--- NOTE | 2023-06-27 14:23 | MHC.OFFVIS ---
Intake Vital Signs 06/27/23 14:23 Height 5 ft 3 in Weight 130 lb 1.164 oz BMI 23.0 BP 127/60 Blood Pressure Location Rt brachial Position Sitting Pulse 48 L Intake Visit Reasons: 4 week follow up Intake Note: Patient returns to in office visit today in 4 weeks follow up of constipation and lab results. CC: Patient continues having occasional constipation, diarrhea, epigastric pain, and chocking when swallowing solids and sometimes with liquids. Patient states that she does not know the name of the medications she is taking because the nurse gives them to her. Marketing Professional Required: Yes Accompanied by: Spouse Allergies No Known Allergies Allergy (Verified 06/27/23 14:29) HPI 4 week follow up HPI Details Assessment & Plan (1) Chronic idiopathic constipation: Code(s): K59.04 - Chronic idiopathic constipation (2) GERD (gastroesophageal reflux disease): Code(s): K21.9 - Gastro-esophageal reflux disease without esophagitis (3) History of gastric bypass: Code(s): Z98.84 - Bariatric surgery status (4) Diarrhea: Code(s): R19.7 - Diarrhea, unspecified Plan Gabonese #Male family member translates per pt request. 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 VISIT vague and poor artificial plastic eye maker She says she has been struggling with CIC alt with diarrhea. The diarrhea has been somewhat more prevalent. I ask if she knows what might have changed since last time I saw her and she says she has been drinking milk because her stomach galloway but she thinks the milk might be giving her diarrhea. I have asked her to stop drinking milk so we can see if this is the problem due to lactose intolerance. I will also send her for some food allergy testing. She is currently on Linzess 72 micro g and she is taking it every day. It is unclear whether she forwarded the message to her nurses to stop her senna and this could also be part of the problem. She says she will have solid stools about twice a week. She generally has 4 days of diarrhea with 3 days of constipation but sometimes this reverses. She continues on her pantoprazole every day but I think we need to change it to avoid the stomach burning. I will see if we can get her on AcipHex and also give her famotidine to take when her stomach galloway to try to get her away from the milk. Return office visit in 4 weeks to see how she is doing. 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 VISIT vague and poor artificial plastic eye maker Orders: Orders C Reactive Protein Today R19.7 - Diarrhea, unspecified Transglutaminase A b IgG Today R19.7 - Diarrhea, unspecified Rast Allergen Today R19.7 - Diarrhea, unspecified Transglutaminase I gA Today R19.7 - Diarrhea, unspecified Medications: New famotidine (Pepcid ) 40 mg PO BEDTIME 30 days 30 tabs 6R F K21.9 - Gastro-eso phageal reflux dis ease without esoph agitis rabeprazole (AcipH ex) 20 mg PO BID 60 t abs 6RF K21.9 - Gastro-eso phageal reflux dis ease without esoph agitis Refilled linaclotide (Linze ss) 72 mcg PO QAM 30 caps 6RF K59.04 - Chronic i diopathic constipa tion metoclopramide HCl 5 mg PO QID 120 t abs 6RF E11.42 - Type 2 di abetes mellitus wi th diabetic polyne uropathy, R11.2 - Nausea with vomiti ng, unspecified simethicone 180 mg PO TID 90 caps 6RF R14.0 - Abdominal distension (gaseou s) dicyclomine 20 mg PO QID 120 tabs 2RF Discontinued pantoprazole Di scontinued Reason: Doctor's Order 40 mg PO QAM 90 t abs 3RF Patient Instructions: Dana Moy Estoy cambiando algunos de [facility]osevelt medicamentos: 1. Suspenda el pantoprazol cuando reciba un nuevo medicamento llamado rabeprazol. 2. Deje de sen: ?aseg?rese de que garcia enfermera lo sepa! 3. Saniya de anoop leche y cuando te tanner el est?sabrina michelle famotidina, que es otro medicamento nuevo que te env?o. 4. Te env?o a que te hagas unas pruebas de alergia alimentaria. Quiero verte de regreso en 4 semanas. I am changing some of your medications: 1. Stop pantoprazole when you receive a new medicine called rabeprazole. 2. Stop senna: Make sure your nurse knows! 3. Stop drinking milk and when your stomach galloway, take famotidine, which is another new medicine that I am sending you. 4. I send you to take some food allergy tests. I want to see you back in 4 weeks. LABS: All are still pending since she just did them 2 days ago and that has not enough time for us to have any results yet. TODAY'S VISIT Gabonese #Ioana Live 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 VISIT vague and poor artificial plastic eye maker She is here today with a male family member who is supportive. I let her know that it is not enough time for any of her labs to be back. She says her sx are improving, she received the aciphex, but again, because her meds are dispensed for her out of a lock box she is not well acquainted with them - boy by name. It is also unclear if she is taking the Linzess 72mcg In general her sx are improving with less burning and less diarrhea. At times she sonu has mild CIC. She is still drinking a little milk. She still has a lot of bloating, that is worse when she wakes up in the morning. Sometimes it gets better throughout the day, but not always. For now we will make no changes to her medications and will wait for the blood in allergy testing to come back. At this time she is taking AcipHex twice a day, Linzess 72 micro g, metoclopramide 4 times a day, at 5 mg, simethicone, and famotidine for breakthrough. She is also on acarbose I assume for cholesterol which will contribute to her bloating as well. Return office visit in 4 weeks C Reactive TvagtskIwekcK03.7 - Diarrhea, unspecified Transglutaminase Ab SzWZxeaeH57.7 - Diarrhea, unspecified Rast ImtgszplCkgfzX94.7 - Diarrhea, unspecified Transglutaminase BgYGfmqmD85.7 - Diarrhea, unspecified PFSH Medical History Presence of Watchman left atrial appendage closure device Small intestinal bacterial overgrowth Orthostatic hypotension Presence of Watchman left atrial appendage closure device Subdural hematoma Syncope and collapse PAF (paroxysmal atrial fibrillation) Vitamin D deficiency Anxiety Depression Overweight (BMI 25.0-29.9) Dyslipidemia Non-toxic multinodular goiter Diabetic polyneuropathy associated with type 2 diabetes mellitus Diabetic retinopathy associated with type 2 diabetes mellitus Diabetes type 2, controlled Surgical History History of cholecystectomy H/O esophagogastroduodenoscopy Hx of colonoscopy History of gastric bypass Hx of knee surgery Hx of hand surgery Family History Father CVD (cardiovascular disease) Mother Diabetes Social History Household Members: Spouse Alcohol intake: never Patient Tobacco Use Status: Current everyday Tobacco user Review of Systems Const Denies fatigue, Denies fever(s), Denies night sweats, Denies poor appetite and Denies weight loss ENT Reports Normal hearing present, Denies dental pain, Denies dysphagia, Denies hearing loss, Denies mouth pain, Denies odynophagia, Denies throat swelling, Denies tongue swelling and Reports other (Dentition adequate) Card Reports no additional complaints Resp Reports no additional complaints GI Details: Denies abdominal pain, Denies melena, Reports bloating, Denies hematochezia, Reports constipation, Denies GI cramping, Denies dysphagia, Denies excessive flatus, Denies early satiety, Reports heartburn, Denies diarrhea, Denies nausea, Denies odynophagia, Denies vomiting and Denies hematemesis Skin/Breast Denies pruritus, Denies lesions, Denies rash and Denies jaundice Neuro Reports Normal hearing present and Denies Abnormal speech present Endo Denies fatigue Aller/Immun Denies throat swelling and Denies tongue swelling Physical Exam Vital Signs: Last Vital Signs Pulse 48 L 06/27/23 14:23 BP 127/60 06/27/23 14:23 BMI result Body Mass Index 23.0 Const General: cooperative, no acute distress, well developed and well groomed Nutritional Appearance: average body habitus and well nourished Orientation/consciousness: oriented to person, oriented to place and oriented to time Limitations: language barrier HEENT Head: Yes normocephalic and Yes atraumatic Eyes General: appearance normal, both eyes and all related structures Pupils: Equal, round and reactive pupils present Neck Neck: Yes normal visual inspection and Yes no lymphadenopathy Thyroid: Thyroid normal Resp Effort & Inspection: normal respiratory effort and able to speak in complete sentences Auscultation: clear to auscultation bilaterally Cardio Rate: regular rate Rhythm: regular rhythm Heart sounds: Normal, physiologic split S2 sound present Peripheral pulses: radial pulses present and posterior tibial pulses present GI Inspection: No distended and No Abdominal panniculus present Palpation (GI): Soft to palpation, nontender, no guarding, not rigid and No hepatosplenomegaly present Percussion: Yes normal to percussion Auscultation: normal bowel sounds Rectal Exam - Female: deferred Skin General skin exam: no rashes or lesions noted, turgor normal, skin not dry, no jaundice, No spider nevi and no striae Rashes: no rashes Nails: normal Neuro General: oriented to person, oriented to place and oriented to time Cranial nerves: Yes Equal, round and reactive pupils present and Yes Normal hearing present Speech: No Abnormal speech present Extrem General: Yes normal to inspection, No clubbing, No cyanosis and No edema Psych Appearance: grossly normal and well kempt Mental Status: mental status grossly normal Speech and movement: Normal speech and movement present Affect: normal affect Attitude: cooperative Thought process: Normal thought process present and not confabulating Thought content: Normal thought content present Insight: Limited insight present (Psych) Judgement: Limited judgement present (Psych) Assessment & Plan Assessment & Plan (1) GERD (gastroesophageal reflux disease): Code(s): K21.9 - Gastro-esophageal reflux disease without esophagitis (2) Periumbilical abdominal pain: Code(s): R10.33 - Periumbilical pain (3) Abdominal bloating: Code(s): R14.0 - Abdominal distension (gaseous) (4) Chronic idiopathic constipation: Code(s): K59.04 - Chronic idiopathic constipation (5) History of gastric bypass: Code(s): Z98.84 - Bariatric surgery status (6) Nausea and vomiting: Code(s): R11.2 - Nausea with vomiting, unspecified Plan LABS: All are still pending since she just did them 2 days ago and that has not enough time for us to have any results yet. TODAY'S VISIT Gabonese #Ioana Live 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 VISIT vague and poor artificial plastic eye maker She is here today with a male family member who is supportive. I let her know that it is not enough time for any of her labs to be back. She says her sx are improving, she received the aciphex, but again, because her meds are dispensed for her out of a lock box she is not well acquainted with them - boy by name. It is also unclear if she is taking the Linzess 72mcg In general her sx are improving with less burning and less diarrhea. At times she sonu has mild CIC. She is still drinking a little milk. She still has a lot of bloating, that is worse when she wakes up in the morning. Sometimes it gets better throughout the day, but not always. For now we will make no changes to her medications and will wait for the blood in allergy testing to come back. At this time she is taking AcipHex twice a day, Linzess 72 micro g, metoclopramide 4 times a day, at 5 mg, simethicone, and famotidine for breakthrough. She is also on acarbose I assume for cholesterol which will contribute to her bloating as well. Return office visit in 4 weeks C Reactive FkhujgjPhxvmD87.7 - Diarrhea, unspecified Transglutaminase Ab DnXJstiaV94.7 - Diarrhea, unspecified Rast FsxjzqmnUoaiiQ62.7 - Diarrhea, unspecified Transglutaminase QvGSrjmuG10.7 - Diarrhea, unspecified Coding Level of Care Code Est Pt Level 3 (64995) Diagnoses GERD (gastroesophageal reflux disease) K21.9 Periumbilical abdominal pain R10.33 Abdominal bloating R14.0 Chronic idiopathic constipation K59.04 History of gastric bypass Z98.84 Nausea and vomiting R11.2
== END 2023-06-27 15:02 | disposition home or self-care (01) ==
PROVIDERS: PCP Internal Medicine; Visit Provider Nurse Practitioner
DX: K21.9 Gastro-esophageal reflux disease without esophagitis (principal); R10.33 Periumbilical pain; R14.0 Abdominal distension (gaseous); K59.04 Chronic idiopathic constipation; Z98.84 Bariatric surgery status; R11.2 Nausea with vomiting, unspecified
CPT/HCPCS: 99213

== ENCOUNTER → 2023-06-27 14:17 | Outpatient (BNVA) | payer OTHER, SELFPAY | PROVIDERS: PCP Internal Medicine; Visit Provider Nurse Practitioner | DX: K21.9 Gastro-esophageal reflux disease without esophagitis (principal); K59.04 Chronic idiopathic constipation; R10.33 Periumbilical pain; R14.0 Abdominal distension (gaseous); R11.2 Nausea with vomiting, unspecified; Z98.84 Bariatric surgery status | CPT/HCPCS: 99212 ==

== ENCOUNTER 2023-07-11 13:10 | Outpatient (AMB) | payer OTHER, SELFPAY ==
--- NOTE | 2023-07-11 13:27 | A.OFFVIS_ITS ---
Intake Vital Signs 07/11/23 13:29 Height 5 ft 3 in Weight 130 lb 1.164 oz BMI 23.0 BP 124/60 Blood Pressure Location Lt brachial Position Sitting Pulse 47 L Intake Visit Reasons: 6 mth f/up Intake Note: 6 month follow up Classified Advertising Supervisor Required: No Accompanied by: Daughter Allergies No Known Allergies Allergy (Verified 07/11/23 13:27) Medication List - Last Reconciled 07/11/23 by Surjit Anthony MD acarbose 25 mg PO TID amlodipine 5 mg PO DAILY aspirin (Adult Aspirin Regimen) 81 mg PO DAILY atorvastatin 80 mg PO BEDTIME Bacillus coagulans (Digestive Advantage Probiotics-Prebiotic) 1 tab po qd PO; 30 days blood sugar diagnostic (FreeStyle Lite Strips) 2times a day blood-glucose meter (FreeStyle Lite Meter kit) Twice a day bupropion HCl 200 mg PO DAILY calcium carbonate-vitamin D3 600 mg-10 mcg (400 unit) 1 tab PO BID cholecalciferol (vitamin D3) 50 mcg PO DAILY cyclosporine 0.05% (Restasis) 1 drp ophthalmic (eye) BID [diabetic shoes extra depth orthopedic shoes ( 1 pair ) with customize heat molded multi density inner soles ( 3 pair) Dispense 1 Sig: As directed DX: And IDDM /polyneuropathy ( E11 0.42 ); hammertoe foot deformity ( M 20.41, and 20.42 ) pre ulcerative skin lesion ( L 85.1 ) Diagnosis ( E11 0.42 ) type 2 diabetes with polyneuropathy] [diabetic shoes extra depth orthopedic shoes ( 1 pair ) with customize heat molded multi density inner soles ( 3 pair) Dispense 1 Sig: As directed DX: And IDDM /polyneuropathy ( E11 0.42 ); hammertoe foot deformity ( M 20.41, and 20.42 ) pre ulcerative skin lesion ( L 85.1 ) Diagnosis ( E11 0.42 ) type 2 diabetes with polyneuropathy] dicyclomine 20 mg PO QID escitalopram oxalate 20 mg PO DAILY famotidine (Pepcid) 40 mg PO BEDTIME 30 days ferrous sulfate 325 mg PO BID flecainide 50 mg PO Q12H gabapentin 300 mg PO BEDTIME linaclotide (Linzess) 72 mcg PO QAM meclizine 25 mg PO DAILY PRN memantine 5 mg PO BID metformin 1,000 mg PO BID metoclopramide HCl 5 mg PO QID metoprolol succinate ER 25 mg PO DAILY ondansetron HCl (Zofran) 4 mg PO BID-TID 30 days oxybutynin chloride 5 mg PO BID rabeprazole (AcipHex) 20 mg PO BID sennosides (senna) 17.2 mg (2 x 8.6 mg) PO BEDTIME PRN simethicone 180 mg PO TID trazodone 100 mg PO BEDTIME PRN HPI HPI Comments History of Present Illness Details Dana returns for follow-up regarding atrial fibrillation. She also has orthostatic hypotension. In the past, she had a fall leading to subdural hemorrhage. She was taking Eliquis but because of intracranial hemorrhage she went for Watchman device placement. She seems to be stable in that regard. She was also having orthostatic hypotension and taking midodrine. However blood pressures rather started going up and hence Midodrine was stopped and amlodipine started. Generally doing okay. No palpitations but she has describing a lot of fatigue and tiredness and states she has not able to do much at home as she is always tired. Daughter is also here for the appointment. COUNTS INCLUDE 234 BEDS AT THE [facility] Medical History Presence of Watchman left atrial appendage closure device Small intestinal bacterial overgrowth Orthostatic hypotension Presence of Watchman left atrial appendage closure device Subdural hematoma Syncope and collapse PAF (paroxysmal atrial fibrillation) Vitamin D deficiency Anxiety Depression Overweight (BMI 25.0-29.9) Dyslipidemia Non-toxic multinodular goiter Diabetic polyneuropathy associated with type 2 diabetes mellitus Diabetic retinopathy associated with type 2 diabetes mellitus Diabetes type 2, controlled Surgical History History of cholecystectomy H/O esophagogastroduodenoscopy Hx of colonoscopy History of gastric bypass Hx of knee surgery Hx of hand surgery Family History Father CVD (cardiovascular disease) Mother Diabetes Social History Household Members: Spouse Alcohol intake: never Patient Tobacco Use Status: Current everyday Tobacco user Review of Systems Const All systems reviewed & are unremarkable except as noted in HPI and below Reports as per HPI and Reports no additional complaints Eyes Reports as per HPI and Denies no additional complaints ENT Denies no additional complaints and Reports as per HPI Card Reports lightheadedness, Denies palpitations and Denies dyspnea Resp Reports as per HPI, Denies no additional complaints and Denies dyspnea GI Reports as per HPI and Denies no additional complaints Reports as per HPI Musc Reports no additional complaints and Reports as per HPI Skin/Breast Reports system reviewed and no additional complaints, except as documented Neuro Reports no additional complaints and Reports as per HPI Psych Reports no additional complaints and Reports as per HPI Endo Reports no additional complaints, Reports as per HPI and Denies palpitations Von/Lymph Reports no additional complaints and Reports as per HPI Aller/Immun Reports no additional complaints and Reports as per HPI Physical Exam Vital Signs: Last Vital Signs Pulse 47 L 07/11/23 13:29 BP 124/60 07/11/23 13:29 BMI result Body Mass Index 23.0 Const General: comfortable and no acute distress Orientation/consciousness: patient oriented x3 HEENT Other: Unremarkable Head: Yes normal to inspection Neck Neck: Yes normal visual inspection Chest Chest palpation & inspection: normal inspection of the chest Resp Auscultation: clear to auscultation bilaterally Cardio Palpation: normal PMI Heart sounds: S1 normal heart sound present, S2 normal heart sound present, no gallops, no murmurs and no rubs GI Palpation (GI): Soft to palpation Back/Spine/Pelvis Other: unremarkable Skin General skin exam: no rashes or lesions noted Neuro General: patient oriented x3 Extrem General: Yes normal to inspection Psych Mental Status: mental status grossly normal Office Procedures EKG Details: EKG with sinus bradycardia at 48/Min; no significant ST-T changes and otherwise unremarkable[place]. [id number], Complete Assessment & Plan Assessment & Plan (1) PAF (paroxysmal atrial fibrillation): Code(s): I48.0 - Paroxysmal atrial fibrillation Plan: Remains on beta-blockers/flecainide. Due to tiredness and sinus bradycardia in the EKG, we can do an ETT for assessing chronotropic competence. Obtain Holter. We may have to stop her flecainide and just keep her on beta-blockers but there is a risk of going back into atrial fibrillation. We discussed about these today. Permanent pacemaker implantation is another option as well. (2) Encounter for monitoring anti-arrhythmic therapy: Code(s): Z51.81 - Encounter for therapeutic drug level monitoring; Z79.899 - Other salvage determiner (current) drug therapy Plan: Stable on low-dose flecainide without any issues. (3) Presence of Watchman left atrial appendage closure device: Code(s): Z95.818 - Presence of other cardiac implants and grafts Plan: Due to fall, subdural hemorrhage while on anticoagulation, she is now status post Watchman device. Continue Aspirin. (4) Orthostatic hypotension: Code(s): I95.1 - Orthostatic hypotension Plan: She is off midodrine. Seems mostly okay. (5) Essential hypertension: Code(s): I10 - Essential (primary) hypertension Plan: On Amlodipine. Plan Discussed with daughter who came for appointment. Due to tiredness and fatigue, we will also get a sleep study. Orders: Orders ECG 3 day holter monitor Today I48.0 - Paroxysmal atrial fibrillation RT home sleep study Today G47.33 - Obstructive sleep apnea (adult) (pediatric) CA stress test Today I48.0 - Paroxysmal atrial fibrillation Coding Level of Care Code Est Pt Level 4 (43514) Diagnoses PAF (paroxysmal atrial fibrillation) I48.0 Encounter for monitoring anti-arrhythmic therapy Z51.81; Z79.899 Presence of Watchman left atrial appendage closure device Z95.818 Orthostatic hypotension I95.1 Essential hypertension I10 CPT Codes EKG - CPT: 13031-[id number], Complete ([id number])
[2023-07-11 13:29] VITALS: BP 124/60; PULSE 47; BMI 23.0
== END 2023-07-11 14:04 | disposition home or self-care (01) ==
PROVIDERS: PCP Internal Medicine; Visit Provider Internal Medicine
DX: I48.0 Paroxysmal atrial fibrillation (principal); Z51.81 Encounter for therapeutic drug level monitoring; Z79.899 Other long term (current) drug therapy; Z95.818 Presence of other cardiac implants and grafts; I95.1 Orthostatic hypotension; I10 Essential (primary) hypertension
CPT/HCPCS: 93010; 99214

== ENCOUNTER → 2023-07-11 13:10 | Outpatient (BNVA) | payer OTHER, SELFPAY | PROVIDERS: PCP Internal Medicine; Visit Provider Internal Medicine | DX: I48.0 Paroxysmal atrial fibrillation (principal); I95.1 Orthostatic hypotension; I10 Essential (primary) hypertension; Z51.81 Encounter for therapeutic drug level monitoring; Z79.899 Other long term (current) drug therapy; Z95.818 Presence of other cardiac implants and grafts | CPT/HCPCS: 93005; 99212 ==

== ENCOUNTER 2023-07-26 14:39 | Outpatient (AMB) | payer OTHER, SELFPAY ==
[2023-07-26 14:40] VITALS: BP 126/57; PULSE 56; BMI 23.9
--- NOTE | 2023-07-26 14:40 | A.OFFVIS_ITS ---
Intake Vital Signs 07/26/23 14:40 Height 5 ft 3 in Weight 134 lb 14.766 oz BMI 23.9 BP 126/57 L Blood Pressure Location Lt brachial Position Sitting Pulse 56 Intake Visit Reasons: 1 month follow up Intake Note: Patient returns to in office visit today in follow up of labs. CC: Patient reports occasional constipation but states she is doing well. Utility Clerk Required: Yes Accompanied by: Daughter Allergies No Known Allergies Allergy (Verified 07/26/23 14:47) HPI 1 month follow up HPI Details Assessment & Plan (1) GERD (gastroesophageal reflux diseas e): Code(s): K21.9 - Gastro-esophageal reflux disease without esophagitis (2) Periumbilical abdominal pain: Code(s): R10.33 - Periumbilical pain (3) Abdominal bloating: Code(s): R14.0 - Abdominal distension (gaseous) (4) Chronic idiopathic constipation: Code(s): K59.04 - Chronic idiopathic constipation (5) History of gastric bypass: Code(s): Z98.84 - Bariatric surgery status (6) Nausea and vomiting: Code(s): R11.2 - Nausea with vomiting, unspecified Plan LABS: All are still pending since she just did them 2 days ago and that has not enough time for us to have any results yet. TODAY'S VISIT Portuguese #[employer] 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 VISIT vague and poor clinical research director She is here today with a male family member who is supportive. I let her know that it is not enough time for any of her labs to be back. She says her sx are improving, she received the aciphex, but again, because her meds are dispensed for her out of a lock box she is not well acquainted with them - boy by name. It is also unclear if she is taking the Linzess 72mcg In general her sx are improving with less burning and less diarrhea. At times she sonu has mild CIC. She is still drinking a little milk. She still has a lot of bloating, that is worse when she wakes up in the morning. Sometimes it gets better throughout the day, but not always. For now we will make no changes to her medications and will wait for the blood in allergy testing to come back. At this time she is taking AcipHex twice a day, Linzess 72 micro g, metoclopramide 4 times a day, at 5 mg, simethicone, and famotidine for breakthrough. She is also on acarbose I assume for cholesterol which will contribute to her bloating as well. Return office visit in 4 weeks C Reactive [id number] - Diarrhea, unspecified Transglutaminase Ab AoWQrjzeS44.7 - Diarrhea, unspecified Rast QfdpoqedTedldJ73.7 - Diarrhea, unspecified Transglutaminase ZaPDyowyJ67.7 - Diarrhea, unspecified LABS: Laboratory Tests 04/06/19 06/25/23 08:38 13:49 C-Reactive Protein < 0.04 Tiss Transglutamin IgG 5.8 Tiss Transglutamin IgA <1.0 Anti-Gliadin IgG A b 5 Anti-Gliadin IgA A b 5 RAST PANEL SHOWS NO SIGNIFICANT FOOD ALLERGIES TODAY'S VISIT Portuguese #[place] [employer] 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 VISIT vague and poor clinical research director she is taking AcipHex twice a day, Linzess 72 micro g, metoclopramide 4 times a day, at 5 mg, simethicone, and famotidine for breakthrough. Her tests indicate a low level of Celiac disease so this along with the lactose intolerance would explain her intermittent diarrhea. I print her some diet information re: Celiac. She ate some pork and this upset her stomach, likely because of her lack of GB, and this has increased her GERD. However, most of the time her GERD is well controlled. ROV 8 weeks. [facility] Medical History (Updated 07/26/23 @ 15:08 by VILMA Joe) Encounter for monitoring anti-arrhythmic therapy Essential hypertension Nausea and vomiting Dysphagia Globus sensation Presence of Watchman left atrial appendage closure device Small intestinal bacterial overgrowth Orthostatic hypotension Presence of Watchman left atrial appendage closure device Subdural hematoma Syncope and collapse PAF (paroxysmal atrial fibrillation) Vitamin D deficiency Anxiety Depression Overweight (BMI 25.0-29.9) Dyslipidemia Non-toxic multinodular goiter Diabetic polyneuropathy associated with type 2 diabetes mellitus Diabetic retinopathy associated with type 2 diabetes mellitus Diabetes type 2, controlled Surgical History (Updated 07/26/23 @ 15:19 by VILMA Joe) History of cholecystectomy H/O esophagogastroduodenoscopy Hx of colonoscopy History of gastric bypass Hx of knee surgery Hx of hand surgery Family History Father CVD (cardiovascular disease) Mother Diabetes Social History Household Members: Spouse Alcohol intake: never Patient Tobacco Use Status: Current everyday Tobacco user Review of Systems Const Denies fatigue, Denies fever(s), Denies night sweats, Denies poor appetite and Denies weight loss ENT Reports Normal hearing present, Denies dental pain, Denies dysphagia, Denies hearing loss, Denies mouth pain, Denies odynophagia, Denies throat swelling, Denies tongue swelling and Reports other (Dentition adequate) Card Reports no additional complaints Resp Reports no additional complaints GI Details: Denies abdominal pain, Denies melena, Reports bloating, Denies hematochezia, Denies constipation, Denies GI cramping, Denies dysphagia, Denies excessive flatus, Denies early satiety, Reports heartburn, Reports diarrhea, Denies nausea, Denies odynophagia, Denies vomiting and Denies hematemesis Skin/Breast Denies pruritus, Denies lesions, Denies rash and Denies jaundice Neuro Reports Normal hearing present and Denies Abnormal speech present Endo Denies fatigue Aller/Immun Denies throat swelling and Denies tongue swelling Physical Exam Vital Signs: Last Vital Signs Pulse 56 07/26/23 14:40 BP 126/57 L 07/26/23 14:40 BMI result Body Mass Index 23.9 Const General: cooperative, no acute distress, well developed and well groomed Nutritional Appearance: average body habitus and well nourished Orientation/consciousness: oriented to person, oriented to place and oriented to time Limitations: language barrier HEENT Head: Yes normocephalic and Yes atraumatic Eyes General: appearance normal, both eyes and all related structures Pupils: Equal, round and reactive pupils present Neck Neck: Yes normal visual inspection and Yes no lymphadenopathy Thyroid: Thyroid normal Resp Effort & Inspection: normal respiratory effort and able to speak in complete sentences Auscultation: clear to auscultation bilaterally Cardio Rate: regular rate Rhythm: regular rhythm Heart sounds: Normal, physiologic split S2 sound present Peripheral pulses: radial pulses present and posterior tibial pulses present GI Inspection: No distended and No Abdominal panniculus present Palpation (GI): Soft to palpation, nontender, no guarding, not rigid and No hepatosplenomegaly present Percussion: Yes normal to percussion Auscultation: normal bowel sounds Rectal Exam - Female: deferred Skin General skin exam: no rashes or lesions noted, turgor normal, skin not dry, no jaundice, No spider nevi and no striae Rashes: no rashes Nails: normal Neuro General: oriented to person, oriented to place and oriented to time Cranial nerves: Yes Equal, round and reactive pupils present and Yes Normal hearing present Speech: No Abnormal speech present Extrem General: Yes normal to inspection, No clubbing, No cyanosis and No edema Psych Appearance: grossly normal and well kempt Mental Status: other Speech and movement: Normal speech and movement present Affect: normal affect Attitude: cooperative Thought process: Circumstantial thought process present and not confabulating Thought content: Normal thought content present Insight: Limited insight present (Psych) Judgement: Limited judgement present (Psych) Assessment & Plan Assessment & Plan (1) GERD (gastroesophageal reflux disease): Code(s): K21.9 - Gastro-esophageal reflux disease without esophagitis (2) Periumbilical abdominal pain: Code(s): R10.33 - Periumbilical pain (3) Chronic idiopathic constipation: Code(s): K59.04 - Chronic idiopathic constipation (4) Abdominal bloating: Code(s): R14.0 - Abdominal distension (gaseous) (5) Celiac disease: Comment: appears mild but may explain her intermittent diarrhea Code(s): K90.0 - Celiac disease (6) History of cholecystectomy: Code(s): Z90.49 - Acquired absence of other specified parts of digestive tract Plan Portuguese #[place] [employer] 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 VISIT vague and poor clinical research director she is taking AcipHex twice a day, Linzess 72 micro g, metoclopramide 4 times a day, at 5 mg, simethicone, and famotidine for breakthrough. Her tests indicate a low level of Celiac disease so this along with the lactose intolerance would explain her intermittent diarrhea. I print her some diet information re: Celiac. She ate some pork and this upset her stomach, likely because of her lack of GB, and this has increased her GERD. However, most of the time her GERD is well controlled. ROV 8 weeks. Orders: Referrals [employer] Nutrition Referral K90.0 - Celiac disease, Z90.49 - Acquired absence of other specified parts of digestive tract Coding Level of Care Code Est Pt Level 3 (13421) Diagnoses GERD (gastroesophageal reflux disease) K21.9 Periumbilical abdominal pain R10.33 Chronic idiopathic constipation K59.04 Abdominal bloating R14.0 Celiac disease K90.0 History of cholecystectomy Z90.49
== END 2023-07-26 15:23 | disposition home or self-care (01) ==
PROVIDERS: PCP Internal Medicine; Visit Provider Nurse Practitioner
DX: K90.0 Celiac disease (principal); K21.9 Gastro-esophageal reflux disease without esophagitis; R10.33 Periumbilical pain; Z90.49 Acquired absence of other specified parts of digestive tract
CPT/HCPCS: 99213

== ENCOUNTER → 2023-07-26 14:39 | Outpatient (BNVA) | payer OTHER, SELFPAY | PROVIDERS: PCP Internal Medicine; Visit Provider Nurse Practitioner | DX: K21.9 Gastro-esophageal reflux disease without esophagitis (principal); K59.04 Chronic idiopathic constipation; K90.0 Celiac disease; R10.33 Periumbilical pain; R14.0 Abdominal distension (gaseous); Z90.49 Acquired absence of other specified parts of digestive tract | CPT/HCPCS: 99212 ==

== ENCOUNTER → 2023-08-05 08:59 | Outpatient (REF) | payer OTHER, SELFPAY ==
--- NOTE | 2023-08-05 09:04 | HM_ITS ---
Conclusion: 1. Patient was monitored for total period of 4 days 2. Baseline was normal sinus rhythm with average heart of 56 beats per minute 3. Frequent sinus bradycardia noted with 70% of time heart rate below 60 beats per minute with no significant pauses 4. Rare PACs noted 5. No patient reported events MTDD
--- NOTE | 2023-08-05 09:04 | CA_ITS ---
Acquisition Time: 2023-08-05 09:21:53 Total Exercise Time: 00:05:00 Test Indications: AFIB Medications: Protocol: PASHA Max HR: 087 BPM 56% of Pred: 155 BPM Max BP: 148/054 mmHG Max Work Load: 5.4 METS Exercise stress test with exercise 5 min of Pasha protocol (stage 2 manually increased to 2 mph and 11% grade) achieving 56% MPHR, without anginal symptoms, with report of leg discomfort and tiredness, with orthostatic reponse in stage 1 blood pressure 90/38 with mild dizziness and return to 124/38, with slow heart rate response to exercise, without arrhythmias seen in artfact, with nondiagnoisitc for ischemia. Test reviewed with Dr. Anthony. Patient took all medications this morning Referred By: Surjit Anthony Overread By: Sophia Whitmore
== END ==
LOC: HO.CARD 08:59
PROVIDERS: PCP Internal Medicine; Visit Provider Internal Medicine
DX: I48.0 Paroxysmal atrial fibrillation (principal)
CPT/HCPCS: 93017; 93242

== ENCOUNTER → 2023-08-05 09:04 | Outpatient (BNV) | payer OTHER, SELFPAY | PROVIDERS: PCP Internal Medicine; Visit Provider Nurse Practitioner | DX: I48.0 Paroxysmal atrial fibrillation (principal) | CPT/HCPCS: 93016; 93018; 93244 ==

== ENCOUNTER 2023-08-06 14:39 | Outpatient (AMB) | payer OTHER, SELFPAY ==
--- NOTE | 2023-08-06 14:41 | A.OFFVIS_ITS ---
Intake VS Expanded 08/08/23 11:57 Height 5 ft 3 in Weight 132 lb 8.6 oz BMI 23.5 Intake Visit Reasons: Celiac disease/LVM Allergies No Known Allergies Allergy (Verified 07/26/23 14:47) HPI Nutrition Presentation Details Pt presents for MNT for gluten free diet instructions related to Celiac Disease , acquired abscence of other specified parts of digestive tract.; Hx of cholecystectomy, gastric bypass surgery. The Pt was referred by Shari Edmond, aviation all source intelligence specialist. Pt presents with daughter during this appointment. Pt's daughter assists with meal preparation and grocery shopping. Pt reports she participates at the [employer] program and has lunch provided at the program Typical meal B: cheerios with 1% milk L: rice and beans and banana, water dinner: cracker or noodles, water fruits:1-2/d fish 0-2x/wk dairy: 1-2/d vegetables: seldom includes starches: beans, pasta,rice, root vegetables beverages: coffee 1-2 /d, water, milk physical activity: sedentary BUP-Wzxikkv-Uz.Jeor Equation Height 5 ft 3 in Weight 133 lb Resting Metabolic Rate 1122.00 Calculated Activity Level Mild Activity Calories Needed to Maintain Weight 1542.75 Diagnosis Nutrition problem #1 food nutri know defi As related to (etiology) #1 diagnosis (Celiac) As evidenced by (sign/symptom) #1 knowledge deficit of diet Monitoring/Goals Nutrition problem monitoring level of knowledge/skill Outcome comment Gluten free food choices Outcome progress verbalized understanding Learning/Education Readiness to learn fair Stages of change preparation Educational materials provided Yes (Gluten free meal planning ) Most Recent Diabetes Results: Creatinine 1.18 mg/dL (0.5-1.4) 02/18/23 Blood Urea Nitrogen 21 mg/dL (9-16) H 02/18/23 Sodium 138 mmol/L (135-145) 02/18/23 Potassium 4.5 mmol/L (3.3-5.1) 02/18/23 Chloride 104 mmol/L (96-108) 02/18/23 Carbon Dioxide 24 mmol/L (22-29) 02/18/23 Calcium 9.8 mg/dL (8.4-10.2) 02/18/23 AST 67 U/L (5-31) H 02/18/23 ALT 119 U/L (0-31) H 02/18/23 Total Protein 7.6 g/dL (6.5-8.0) 02/18/23 Albumin 4.2 g/dL (3.5-5.0) 02/18/23 [facility] Medical History (Updated 08/08/23 @ 12:23 by Akanksha Beth, RD, LDN) Encounter for monitoring anti-arrhythmic therapy Essential hypertension Nausea and vomiting Dysphagia Globus sensation Presence of Watchman left atrial appendage closure device Small intestinal bacterial overgrowth Orthostatic hypotension Presence of Watchman left atrial appendage closure device Subdural hematoma Syncope and collapse PAF (paroxysmal atrial fibrillation) Vitamin D deficiency Anxiety Depression Overweight (BMI 25.0-29.9) Dyslipidemia Non-toxic multinodular goiter Diabetic polyneuropathy associated with type 2 diabetes mellitus Diabetic retinopathy associated with type 2 diabetes mellitus Diabetes type 2, controlled Surgical History (Updated 07/26/23 @ 15:19 by VILMA Joe) History of cholecystectomy H/O esophagogastroduodenoscopy Hx of colonoscopy History of gastric bypass Hx of knee surgery Hx of hand surgery Family History Father CVD (cardiovascular disease) Mother Diabetes Social History Household Members: Spouse Alcohol intake: never Patient Tobacco Use Status: Current everyday Tobacco user Assessment & Plan Assessment & Plan (1) Celiac disease: Comment: with acquired absence of specified part of digestive tract (hx of cholecystectomy, gastric bypass surgery) Code(s): K90.0 - Celiac disease Plan: Wt: 60 Kg ( ) Est kcal needs as per MSJ: 1500 (40% carb, 30% protein/fat) Est fluid needs as per 25-30 ml/d: 1800 Est prot per day as per 1 g/kg bw: 60 Recommend fiber intake : 8-10 g per day and gradually increase to 25-28 g per day for women and 35-38 g for men or as tolerated Recommend sodium intake per day : less than 2000 mg Educated patient on: ( R = reviewed V = verbalizes understanding N/R = needs review N/A = not applicable * Gluten free Food sources : R * Lean protein sources of foods: R V NR * Vitamins and minerals: R V N/R * Healthy plate method concept: R * Physical activity: Benefits a precaution: N/R * prevention of cross contamination : R Patient Instructions: Choose food naturally gluten free in your diet, choosing a variety of foods (protein , vegetables, fruits, starches, lactose free milk Opt for having a gluten free meal replacement (see list of choices), bringing a meal from home or choosing Gluten free cereals at the program for lunch instead of skipping meals See list of various gluten free meal options easy to prepare or have When in doubt choose foods with GF symbol , read ingredient lists Coding Level of Care Code Nutr Indiv Intake (13891) Diagnoses Celiac disease K90.0 Time Spent (min) 30
[2023-08-08 11:57] VITALS: BMI 23.5
[2023-08-12 14:14] VITALS: BMI 23.6
== END 2023-08-06 15:14 | disposition home or self-care (01) ==
PROVIDERS: PCP Internal Medicine; Visit Provider Dietitian, Registered
DX: K90.0 Celiac disease (principal)

== ENCOUNTER → 2023-08-06 14:39 | Outpatient (BNVA) | payer OTHER, SELFPAY | PROVIDERS: PCP Internal Medicine; Visit Provider Dietitian, Registered | DX: K90.0 Celiac disease (principal) | CPT/HCPCS: 97802 ==

== ENCOUNTER → 2023-08-21 14:06 | Outpatient (REF) | payer OTHER, SELFPAY | LOC: HO.SL 14:06 | PROVIDERS: PCP Internal Medicine; Visit Provider Internal Medicine | DX: G47.33 Obstructive sleep apnea (adult) (pediatric) (principal) | CPT/HCPCS: 95806 ==

== ENCOUNTER → 2023-08-21 14:20 | Outpatient (BNV) | payer OTHER, SELFPAY | PROVIDERS: PCP Internal Medicine; Visit Provider Internal Medicine | DX: R06.83 Snoring (principal) | CPT/HCPCS: 95806 ==

== ENCOUNTER 2023-08-27 15:43 | Outpatient (REF) | payer OTHER, SELFPAY ==
[2023-08-27 18:22] LABS: Anion Gap 13 (12-20); Blood Urea Nitrogen 21 mg/dL (9-16); Calcium 9.5 mg/dL (8.4-10.2); Carbon Dioxide 21 mmol/L (22-29); Chloride 108 mmol/L (96-108); Estimated Glomerular Filt Rate 47; Glucose Random 207 mg/dL (60-115); Sodium 137 mmol/L (135-145)
[2023-08-27 18:56] LABS: B Type Natriuretic Peptide 180 pg/mL (<100)
== END 2023-08-27 15:44 | disposition home or self-care (01) ==
LOC: HO.HHCL 15:43
PROVIDERS: Visit Provider Internal Medicine Geriatric Medicine
DX: R60.9 Edema, unspecified (principal); R06.09 Other forms of dyspnea; R63.5 Abnormal weight gain
CPT/HCPCS: 36415; 80048; 83880

== ENCOUNTER 2023-09-05 13:17 | Outpatient (AMB) | payer OTHER, SELFPAY ==
[2023-09-05 13:27] VITALS: BP 116/68; PULSE 57; O2SAT 97; BMI 25.0
--- NOTE | 2023-09-05 13:27 | MHC.OFFVIS ---
Vital Signs 09/05/23 13:27 Height 5 ft 3 in Weight 141 lb 1.533 oz BMI 25.0 BP 116/68 Blood Pressure Location Lt brachial Position Sitting Pulse 57 Pulse Source Monitor Pulse Oximetry (%) 97 Oxygen Delivery Method Room Air Intake Visit Reasons: 2 mth fu ett,echo,home sleep study Intake Note: 2 month follow up pt feels good with ekg Conciliator Required: Yes Conciliator Name: daughter joao Allergies No Known Allergies Allergy (Verified 07/26/23 14:47) HPI Comments Details: 67-year-old female presents today with her daughter who is translating for her today. Appropriate for signed. She has a history of bradycardia ad has been getting dizzy with position changes and walking. She reports she is very fatigued. Patient and daughter Dean state patient did have an episode of dizziness/disorientation at night about 2 weeks ago where she fell. she refused to be evaluated. [facility] Medical History (Updated 09/06/23 @ 12:43 by Sophia Whitmore NP) Bradycardia Encounter for monitoring anti-arrhythmic therapy Essential hypertension Nausea and vomiting Dysphagia Globus sensation Presence of Watchman left atrial appendage closure device Small intestinal bacterial overgrowth Orthostatic hypotension Presence of Watchman left atrial appendage closure device Subdural hematoma Syncope and collapse PAF (paroxysmal atrial fibrillation) Vitamin D deficiency Anxiety Depression Overweight (BMI 25.0-29.9) Dyslipidemia Non-toxic multinodular goiter Diabetic polyneuropathy associated with type 2 diabetes mellitus Diabetic retinopathy associated with type 2 diabetes mellitus Diabetes type 2, controlled Surgical History (Updated 07/26/23 @ 15:19 by VILMA Joe) History of cholecystectomy H/O esophagogastroduodenoscopy Hx of colonoscopy History of gastric bypass Hx of knee surgery Hx of hand surgery Family History Father CVD (cardiovascular disease) Mother Diabetes Social History Household Members: Spouse Alcohol intake: never Patient Tobacco Use Status: Current everyday Tobacco user Review of Systems Const Denies weakness ENT Denies dizziness Card Denies chest pain, Denies chest pain with activity, Denies syncope, Denies rapid heart rate, Denies pedal edema, Denies edema, Denies leg edema, Denies lightheadedness, Denies palpitations, Denies dyspnea, Denies dyspnea on exertion and Denies orthopnea Resp Denies cough, Denies dyspnea and Denies dyspnea on exertion GI Denies hematochezia and Denies change in stool character Musc Denies abnormal gait, Denies muscle cramps, Denies muscle weakness, Denies numbness, Denies radiating pain into limb and Denies tingling Neuro Denies abnormal gait, Denies dizziness, Denies syncope, Denies numbness, Denies tingling and Denies weakness Endo Denies palpitations Physical Exam Vital Signs: Last Vital Signs Pulse 57 09/05/23 13:27 BP 116/68 09/05/23 13:27 Pulse Ox 97 09/05/23 13:27 Oxygen Delivery Method Room Air 09/05/23 13:27 BMI result Body Mass Index 25.0 Office Procedures EKG Details: EKG today. Sinus Bradycardia. Rate 55 bpm. QRS 98ms. QTc 422ms. [id number], Complete Assessment & Plan Assessment & Plan (1) Bradycardia: Code(s): R00.1 - Bradycardia, unspecified Category: Medical Plan She had a slow heart rate response on stress test. Her heart rate only got to 56% MPHR in 5 minutes of Curtis protocol. Holter showed average heart rate was 56 bpm. Bradycardia 70% of the time. Heart rate as low as 44 bpm. Discussed options of stopping the flecanide and pacemaker placement. Risks of atrial fibrillation if she was to stop flecanide or surgical risks of pacemaker placement. Patient decided she would like to be evaluated for pacemaker placement. Referral placed. Orders: Referrals Cardiac Electrophysiology Referral R00.1 - Bradycardia, unspecified
== END 2023-09-05 13:39 | disposition home or self-care (01) ==
PROVIDERS: PCP Internal Medicine; Visit Provider Nurse Practitioner
DX: R00.1 Bradycardia, unspecified (principal)
CPT/HCPCS: 93010; 99213

== ENCOUNTER → 2023-09-05 13:17 | Outpatient (BNVA) | payer OTHER, SELFPAY | PROVIDERS: PCP Internal Medicine; Visit Provider Nurse Practitioner | DX: R00.1 Bradycardia, unspecified (principal); I10 Essential (primary) hypertension | CPT/HCPCS: 93005; 99212 ==

== ENCOUNTER 2023-09-18 13:53 | Outpatient (AMB) | payer OTHER, SELFPAY ==
--- NOTE | 2023-09-18 14:05 | MHC.AMNUTRGE ---
Intake VS Expanded 09/18/23 14:06 Height 5 ft 3 in Weight 137 lb 2.04 oz BMI 24.3 Intake Visit Reasons: celiac/LVM Allergies No Known Allergies Allergy (Verified 07/26/23 14:47) HPI Nutrition Presentation Details Pt presents for MNT f/u on Gluten free diet r/t Celiac disease Pt reports choosing gluten free options at the day program At home in the evening has crackers, breads non gluten free- reports choosing whatever is in sight or if having the appetite, often reports having reduced appetite int he evening. B: GF cereal with milk and fruit lunch: meat/beans, rice or root veg with cod and water or crystal light dinner: skips or has non gluten free crackers sometimes makes smoothie with 2 fruits/water Most Recent Diabetes Results: Creatinine 1.15 mg/dL (0.5-1.4) 08/27/23 Blood Urea Nitrogen 21 mg/dL (9-16) H 08/27/23 Sodium 137 mmol/L (135-145) 08/27/23 Potassium 5.0 mmol/L (3.3-5.1) 08/27/23 Chloride 108 mmol/L (96-108) 08/27/23 Carbon Dioxide 21 mmol/L (22-29) L 08/27/23 Calcium 9.5 mg/dL (8.4-10.2) 08/27/23 [facility] Medical History (Updated 09/06/23 @ 12:43 by Sophia Whitmore NP) Bradycardia Encounter for monitoring anti-arrhythmic therapy Essential hypertension Nausea and vomiting Dysphagia Globus sensation Presence of Watchman left atrial appendage closure device Small intestinal bacterial overgrowth Orthostatic hypotension Presence of Watchman left atrial appendage closure device Subdural hematoma Syncope and collapse PAF (paroxysmal atrial fibrillation) Vitamin D deficiency Anxiety Depression Overweight (BMI 25.0-29.9) Dyslipidemia Non-toxic multinodular goiter Diabetic polyneuropathy associated with type 2 diabetes mellitus Diabetic retinopathy associated with type 2 diabetes mellitus Diabetes type 2, controlled Surgical History (Updated 07/26/23 @ 15:19 by VILMA Joe) History of cholecystectomy H/O esophagogastroduodenoscopy Hx of colonoscopy History of gastric bypass Hx of knee surgery Hx of hand surgery Family History Father CVD (cardiovascular disease) Mother Diabetes Social History Household Members: Spouse Alcohol intake: never Patient Tobacco Use Status: Current everyday Tobacco user Assessment & Plan Assessment & Plan (1) Celiac disease: Comment: with acquired absence of specified part of digestive tract (hx of cholecystectomy, gastric bypass surgery) Code(s): K90.0 - Celiac disease Plan: Wt: 60 Kg ( 08/2023 ), 62 kg (09/2023) Est kcal needs as per MSJ: 1500 (40% carb, 30% protein/fat) Est fluid needs as per 25-30 ml/d: 1800 Est prot per day as per 1 g/kg bw: 60 Recommend fiber intake : 8-10 g per day and gradually increase to 25-28 g per day for women and 35-38 g for men or as tolerated Recommend sodium intake per day : less than 2000 mg Educated patient on: ( R = reviewed V = verbalizes understanding N/R = needs review N/A = not applicable Gluten free Food sources : R Lean protein sources of foods: R V NR Vitamins and minerals: R V N/R Healthy plate method concept: R Physical activity: Benefits a precaution: N/R prevention of cross contamination : R Patient Instructions: Switch to gluten free crackers or choose a fruit in the evening along with a 3-4 oz of protein - see list of quick protein choices and gluten free snack ideas keep hydrated by having water, low fat milk Coding Level of Care Code Nutr Indiv Subseq (31790) Diagnoses Celiac disease K90.0 Time Spent (min) 30
[2023-09-18 14:06] VITALS: BMI 24.3
== END 2023-09-18 14:42 | disposition home or self-care (01) ==
PROVIDERS: PCP Internal Medicine; Visit Provider Dietitian, Registered
DX: K90.0 Celiac disease (principal)

== ENCOUNTER → 2023-09-18 13:53 | Outpatient (BNVA) | payer OTHER, SELFPAY | PROVIDERS: PCP Internal Medicine; Visit Provider Dietitian, Registered | DX: K90.0 Celiac disease (principal); E11.9 Type 2 diabetes mellitus without complications; Z71.3 Dietary counseling and surveillance | CPT/HCPCS: 97803 ==

== ENCOUNTER → 2023-09-19 13:36 | Outpatient (REF) | payer OTHER, SELFPAY ==
--- NOTE | 2023-09-19 13:42 | CA_ITS ---
Transthoracic Echocardiogram Patient (Last, First, Middle): Dana Winter, Gender: Female Date of : 1955 Age: 67 Procedure Date: 09/19/2023 Procedure Type: Transthoracic Echocardiogram Location: OP Height: 160.02 cm Weight: 62.14 kg BSA: 1.65 m2 Heart Rate: bpm BP: 114 / 58 mmHg Manager Flight Operations: LEONARDO Referring MD: Adam Kang MD Symptoms: HOWARD, EDEMA Study Quality: Adequate ECG Rhythm: Sinus Conclusions: - The calculated ejection fraction is 64% by biplane method. There is no evidence of regional wall motion abnormalities. - Evidence suggests grade III (severe) diastolic dysfunction. - No obvious valvular pathology seen on this study. Findings Left Ventricle Normal left ventricular cavity size. There is normal left ventricular wall thickness. The left ventricular systolic function is normal. The calculated ejection fraction is 64% by biplane method. There is no evidence of regional wall motion abnormalities. Evidence suggests grade III (severe) diastolic dysfunction. LV peak GLS -14.3%. Right Ventricle Normal right ventricular cavity size and systolic function. Atria The left atrium is moderately dilated. The right atrium is mildly dilated. Aortic Valve There is a normal trileaflet aortic valve. There is no aortic valve stenosis. There is no aortic valve regurgitation. Mitral Valve The mitral valve appears normal. There is trace mitral valve regurgitation. There is no mitral valve stenosis. Pulmonic Valve The pulmonic valve is likely normal. Tricuspid Valve Normal tricuspid valve structure. There is trace tricuspid valve regurgitation. There is no evidence of pulmonary hypertension. Great Vessels The asc aorta is normal in size. Small plaque is seen in the sino tubular ridge. Venous The inferior vena cava is normal in size and collapses greater than 50% with inspiration. Pericardium/Pleural There is no evidence of pericardial effusion. Prior Study Comparison Changes noted compared to prior study dated: 03/31/2019. see comment on diastolic dysfunction. Recommendations, Care & Conclusions No obvious valvular pathology seen on this study. Measurements 2D Linear Measurements IVSd: 0.97 0.6-0.9/0.6-1.0 cm LVIDd: 4.54 3.9-5.3/4.2-5.9 cm LVIDd Index: 2.75 2.4-3.2/2.2-3.1 cm/m2 LVIDs: 3.06 2.0-3.6 cm LVPWd: 1.02 0.7-1.1 cm LA Diam: 3.50 2.7-3.8/3.0-4.0 cm LAIDs Index: 2.12 1.5-2.3 cm/m2 LV Mass: 191.73 67-162/88-224 g LV Mass Index: 116.20 43-95/49-115 g/m2 LVOT Diam: 1.80 3.0+(-)1.3 cm 2D Systolic Function EF 4C: 59.10 >55% EF 2C: 63.90 >55% EF BiP: 63.60 >55% Mitral Valve MV Pk E: 1.10 MV PK A: 0.26 MV Decel Time: 196.00 E/A: 4.20 E'Lateral: 10.30 E'Medial: 6.96 E/E' Med: 15.80 E/E' Lat: 10.70 PHT: 57.00 MVA PHT: 3.86 Decel Cass: 5.60 Aortic Valve AoV Pk Aayush: 1.39 AoV Mn Aayush: 0.98 AoV VTI: 0.38 AoV Pk Grad: 8.00 Aov Mn Grad: 4.00 DARIUS Cont.VTI: 1.73 LVOT LVOT Pk Aayush: 1.03 LVOT Mn Aayush: 0.68 LVOT VTI: 0.26 LVOT Pk Grad: 4.00 LVOT Mn Grad: 2.00 LVOT Diam: 1.80 LVOT Area: 2.54 Diastolic Function MV Pk E: 1.10 MV Pk A: 0.26 E/A: 4.20 E'Medial: 6.96 E/E' Med: 15.80 E' Laterial: 10.30 E/E' Lat: 10.70 Right Ventricle TAPSE (mm): 22.60 TVS' Aayush: 11.30 Tricuspid Valve TR Pk Aayush: 2.47 TR Pk Grad: 24.00 RA Press: 3.00 RVSP: 27.00 Great Vessels Aorta Sinus of Valsalva: 2.46 2.0-3.[address] Ridge: 1.59 1.7-3.4 cm Ao Asc: 2.90 2.1-3.4 cm Updated in Other Vendor System with Status of Final Surjit Anthony MD electronically signed on 09/20/2023 10:11:03 AM with status of Final
== END ==
LOC: HO.CARD 13:36
PROVIDERS: PCP Internal Medicine; Visit Provider Internal Medicine Geriatric Medicine
DX: R60.9 Edema, unspecified (principal); R06.09 Other forms of dyspnea; R63.5 Abnormal weight gain
CPT/HCPCS: 93306; 93356

== ENCOUNTER → 2023-09-19 13:42 | Outpatient (BNV) | payer OTHER, SELFPAY | PROVIDERS: PCP Internal Medicine; Visit Provider Internal Medicine | DX: I50.30 Unspecified diastolic (congestive) heart failure (principal) | CPT/HCPCS: 93306; 93356 ==

== ENCOUNTER 2023-09-25 14:32 | Outpatient (AMB) | payer OTHER, SELFPAY ==
[2023-09-25 14:35] VITALS: BP 121/59; PULSE 54; BMI 24.6
--- NOTE | 2023-09-25 14:35 | A.OFFVIS_ITS ---
Vital Signs 09/25/23 14:35 Height 5 ft 3 in Weight 138 lb 14.259 oz BMI 24.6 BP 121/59 L Blood Pressure Location Lt brachial Position Sitting Pulse 54 Intake Visit Reasons: 3 weeks follow up Intake Note: Dana presents to in office follow up of GERD. CC: Patient reports bloating, and lower abdominal pain. Denies other GI symptoms. Process Owner Required: Yes Accompanied by: Daughter Allergies No Known Allergies Allergy (Verified 09/25/23 14:39) HPI HPI 3 weeks follow up: Details: Assessment & Plan (1) GERD (gastroesophageal reflux disease): Code(s): K21.9 - Gastro-esophageal reflux disease without esophagitis (2) Periumbilical abdominal pain: Code(s): R10.33 - Periumbilical pain (3) Chronic idiopathic constipation: Code(s): K59.04 - Chronic idiopathic constipation (4) Abdominal bloating: Code(s): R14.0 - Abdominal distension (gaseous) (5) Celiac disease: Comment: appears mild but may explain her intermittent diarrhea Code(s): K90.0 - Celiac disease (6) History of cholecystectomy: Code(s): Z90.49 - Acquired absence of other specified parts of digestive tract Plan [place] #[place] [employer] 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 VISIT vague and poor hat lining blocker she is taking AcipHex twice a day, Linzess 72 micro g, metoclopramide 4 times a day, at 5 mg, simethicone, and famotidine for breakthrough. Her tests indicate a low level of Celiac disease so this along with the lactose intolerance would explain her intermittent diarrhea. I print her some diet information re: Celiac. She ate some pork and this upset her stomach, likely because of her lack of GB, and this has increased her GERD. However, most of the time her GERD is well controlled. ROV 8 weeks. Orders: Referrals [employer] Equipment Tender Nutrition Referral K90.0 - Celiac disease, Z90.49 - Acquired absence of other specified parts of digestive tract TODAY'S VISIT [place] #dtr translates per pt request She has been complaining of bloating, CIC but still occasional diarrhea. Her daughter admits that the patient does not do well with avoiding gluten for he Celiac disease, and this is likely why she has intermittent diarrhea. This makes it difficult for me to consider if I should increase her Linzess. Her dtr asks if there are rosaline meds we can stop, and I think we can stop famotidine, senna and dicyclomine. She may want to ask her PCP or prescriber about acarbose since this is a very gas producing medication. She is taking AcipHex twice a day, Linzess 72 micro g, metoclopramide 4 times a day, at 5 mg, simethicone, and famotidine for breakthrough. Again we are going to discontinue the dicyclomine and famotidine and increase the Linzess 245 micro g. ROV 4 weeks. [facility] Medical History Bradycardia Encounter for monitoring anti-arrhythmic therapy Essential hypertension Nausea and vomiting Dysphagia Globus sensation Presence of Watchman left atrial appendage closure device Small intestinal bacterial overgrowth Orthostatic hypotension Presence of Watchman left atrial appendage closure device Subdural hematoma Syncope and collapse PAF (paroxysmal atrial fibrillation) Vitamin D deficiency Anxiety Depression Overweight (BMI 25.0-29.9) Dyslipidemia Non-toxic multinodular goiter Diabetic polyneuropathy associated with type 2 diabetes mellitus Diabetic retinopathy associated with type 2 diabetes mellitus Diabetes type 2, controlled Surgical History History of cholecystectomy H/O esophagogastroduodenoscopy Hx of colonoscopy History of gastric bypass Hx of knee surgery Hx of hand surgery Family History Father CVD (cardiovascular disease) Mother Diabetes Social History Household Members: Spouse Alcohol intake: never Patient Tobacco Use Status: Current everyday Tobacco user Review of Systems Const Denies fatigue, Denies fever(s), Denies night sweats, Denies poor appetite and Denies weight loss ENT Reports Normal hearing present, Denies dental pain, Denies dysphagia, Denies hearing loss, Denies mouth pain, Denies odynophagia, Denies throat swelling, Denies tongue swelling and Reports other (Dentition adequate) Card Reports no additional complaints Resp Reports no additional complaints GI Details: Denies abdominal pain, Denies melena, Reports bloating, Denies hematochezia, Reports constipation, Denies GI cramping, Denies dysphagia, Reports excessive flatus, Denies early satiety, Reports heartburn, Reports diarrhea, Denies nausea, Denies odynophagia, Denies vomiting and Denies hematemesis Skin/Breast Denies pruritus, Denies lesions, Denies rash and Denies jaundice Neuro Reports Normal hearing present and Denies Abnormal speech present Endo Denies fatigue Aller/Immun Denies throat swelling and Denies tongue swelling Physical Exam Vital Signs: Last Vital Signs Pulse 54 09/25/23 14:35 BP 121/59 L 09/25/23 14:35 BMI result Body Mass Index 24.6 Const General: cooperative, no acute distress, well developed and well groomed Nutritional Appearance: average body habitus and well nourished Orientation/consciousness: oriented to person, oriented to place and oriented to time Limitations: language barrier and other limitations HEENT Head: Yes normocephalic and Yes atraumatic Eyes General: appearance normal, both eyes and all related structures Pupils: Equal, round and reactive pupils present Neck Neck: Yes normal visual inspection and Yes no lymphadenopathy Thyroid: Thyroid normal Resp Effort & Inspection: normal respiratory effort and able to speak in complete sentences Auscultation: clear to auscultation bilaterally Cardio Rate: regular rate Rhythm: regular rhythm Heart sounds: Normal, physiologic split S2 sound present Peripheral pulses: radial pulses present and posterior tibial pulses present GI Inspection: No distended and No Abdominal panniculus present Palpation (GI): Soft to palpation, nontender, no guarding, not rigid and No hepatosplenomegaly present Percussion: Yes normal to percussion Auscultation: normal bowel sounds Rectal Exam - Female: deferred Skin General skin exam: no rashes or lesions noted, turgor normal, skin not dry, no jaundice, No spider nevi and no striae Rashes: no rashes Nails: normal Neuro General: oriented to person, oriented to place and oriented to time Cranial nerves: Yes Equal, round and reactive pupils present and Yes Normal hearing present Speech: No Abnormal speech present Extrem General: Yes normal to inspection, No clubbing, No cyanosis and No edema Psych Appearance: grossly normal and well kempt Mental Status: mental status grossly normal Speech and movement: Normal speech and movement present Affect: normal affect Attitude: cooperative Thought process: Normal thought process present and not confabulating Thought content: Normal thought content present Insight: Limited insight present (Psych) Judgement: Limited judgement present (Psych) Assessment & Plan Assessment & Plan (1) Chronic idiopathic constipation: Code(s): K59.04 - Chronic idiopathic constipation Category: Medical (2) Celiac disease: Comment: with acquired absence of specified part of digestive tract (hx of cholecystectomy, gastric bypass surgery) Code(s): K90.0 - Celiac disease Category: Medical (3) GERD (gastroesophageal reflux disease): Code(s): K21.9 - Gastro-esophageal reflux disease without esophagitis Category: Medical Plan [place] #dtr translates per pt request She has been complaining of bloating, CIC but still occasional diarrhea. Her daughter admits that the patient does not do well with avoiding gluten for he Celiac disease, and this is likely why she has intermittent diarrhea. This makes it difficult for me to consider if I should increase her Linzess. Her dtr asks if there are rosaline meds we can stop, and I think we can stop famotidine, senna and dicyclomine. She may want to ask her PCP or prescriber about acarbose since this is a very gas producing medication. She is taking AcipHex twice a day, Linzess 72 micro g, metoclopramide 4 times a day, at 5 mg, simethicone, and famotidine for breakthrough. Again we are going to discontinue the dicyclomine and famotidine and increase the Linzess 245 micro g. ROV 4 weeks. Medications: New linaclotide (Linzess) 145 mcg PO QAM 30 caps 6RF Discontinued linaclotide (Linzess) Discontinued Reason: Doctor's Order 72 mcg PO QAM 30 caps 6RF K59.04 - Chronic idiopathic constipation On Hold dicyclomine Hold Comment: Doctor's Order 20 mg PO QID 360 tabs 0RF Coding Level of Care Code Est Pt Level 3 (21907) Diagnoses Chronic idiopathic constipation K59.04 Celiac disease K90.0 GERD (gastroesophageal reflux disease) K21.9
== END 2023-09-25 15:04 | disposition home or self-care (01) ==
PROVIDERS: PCP Internal Medicine; Visit Provider Nurse Practitioner
DX: K21.9 Gastro-esophageal reflux disease without esophagitis (principal); K59.04 Chronic idiopathic constipation; Z90.49 Acquired absence of other specified parts of digestive tract
CPT/HCPCS: 99213

== ENCOUNTER → 2023-09-25 14:32 | Outpatient (BNVA) | payer OTHER, SELFPAY | PROVIDERS: PCP Internal Medicine; Visit Provider Nurse Practitioner | DX: K59.04 Chronic idiopathic constipation (principal); K90.0 Celiac disease; K21.9 Gastro-esophageal reflux disease without esophagitis | CPT/HCPCS: 99212 ==

== ENCOUNTER 2023-10-04 14:42 | Outpatient (AMB) | payer OTHER, SELFPAY ==
--- NOTE | 2023-10-04 14:45 | MHC.OFFVIS ---
Vital Signs 10/04/23 14:46 Height 5 ft 3 in Weight 134 lb 7.712 oz BMI 23.8 BP 110/50 L Blood Pressure Location Lt brachial Position Sitting Pulse 54 Pulse Source Monitor Pulse Oximetry (%) 98 Oxygen Delivery Method Room Air Intake Visit Reasons: 3 month f/u moved ov sooner Industrial Mechanic Required: Yes Industrial Mechanic Name: Daughter Allergies No Known Allergies Allergy (Verified 09/25/23 14:39) Medication List - Last Reconciled 10/04/23 by Sophia Whitmore NP acarbose 25 mg PO TID amlodipine 5 mg PO DAILY aspirin (Adult Aspirin Regimen) 81 mg PO DAILY atorvastatin 80 mg PO BEDTIME Bacillus coagulans (Digestive Advantage Probiotics-Prebiotic) 1 tab po qd PO; 30 days blood sugar diagnostic (FreeStyle Lite Strips) 2times a day blood-glucose meter (FreeStyle Lite Meter kit) Twice a day bupropion HCl XL 150 mg PO QAM calcium carbonate-vitamin D3 600 mg-10 mcg (400 unit) 1 tab PO BID cholecalciferol (vitamin D3) 50 mcg PO DAILY [diabetic shoes extra depth orthopedic shoes ( 1 pair ) with customize heat molded multi density inner soles ( 3 pair) Dispense 1 Sig: As directed DX: And IDDM /polyneuropathy ( E11 0.42 ); hammertoe foot deformity ( M 20.41, and 20.42 ) pre ulcerative skin lesion ( L 85.1 ) Diagnosis ( E11 0.42 ) type 2 diabetes with polyneuropathy] [diabetic shoes extra depth orthopedic shoes ( 1 pair ) with customize heat molded multi density inner soles ( 3 pair) Dispense 1 Sig: As directed DX: And IDDM /polyneuropathy ( E11 0.42 ); hammertoe foot deformity ( M 20.41, and 20.42 ) pre ulcerative skin lesion ( L 85.1 ) Diagnosis ( E11 0.42 ) type 2 diabetes with polyneuropathy] dicyclomine 20 mg PO QID escitalopram oxalate 20 mg PO DAILY famotidine (Pepcid) 40 mg PO BEDTIME 30 days ferrous sulfate 325 mg PO BID flecainide 50 mg PO Q12H furosemide 20 mg PO DAILY gabapentin 300 mg PO BEDTIME linaclotide (Linzess) 145 mcg PO QAM meclizine 25 mg PO DAILY PRN metformin 1,000 mg PO BID metoclopramide HCl 5 mg PO QID metoprolol succinate ER 25 mg PO DAILY multivitamin 1 tab PO DAILY oxybutynin chloride 5 mg PO BID rabeprazole (AcipHex) 20 mg PO BID sennosides (senna) 17.2 mg (2 x 8.6 mg) PO BEDTIME PRN simethicone 180 mg PO TID trazodone 100 mg PO BEDTIME PRN HPI Comments Details: 68-year-old female presents today with her daughter who is translating for her today. Appropriate for signed. She has a history of bradycardia and was recently referred to EP for a pacemaker evaluation. She recently went to the walk-in clinic at [facility] for swelling and shortness of breath and was sent for an echocardiogram and lab work. She had lasix added to her medications. Her PCP asked that she be seen sooner. She is seeing Dr. Otoole for her kidneys. [facility] Medical History Diastolic dysfunction Bradycardia Encounter for monitoring anti-arrhythmic therapy Essential hypertension Nausea and vomiting Dysphagia Globus sensation Presence of Watchman left atrial appendage closure device Small intestinal bacterial overgrowth Orthostatic hypotension Presence of Watchman left atrial appendage closure device Subdural hematoma Syncope and collapse PAF (paroxysmal atrial fibrillation) Vitamin D deficiency Anxiety Depression Overweight (BMI 25.0-29.9) Dyslipidemia Non-toxic multinodular goiter Diabetic polyneuropathy associated with type 2 diabetes mellitus Diabetic retinopathy associated with type 2 diabetes mellitus Diabetes type 2, controlled Surgical History History of cholecystectomy H/O esophagogastroduodenoscopy Hx of colonoscopy History of gastric bypass Hx of knee surgery Hx of hand surgery Family History Father CVD (cardiovascular disease) Mother Diabetes Social History Household Members: Spouse Alcohol intake: never Patient Tobacco Use Status: Current everyday Tobacco user Review of Systems Const Denies weakness ENT Denies dizziness Card Denies chest pain, Denies chest pain with activity, Denies syncope, Denies rapid heart rate, Denies pedal edema, Denies edema, Denies leg edema, Denies lightheadedness, Denies palpitations, Denies dyspnea, Denies dyspnea on exertion and Denies orthopnea Resp Denies cough, Denies dyspnea and Denies dyspnea on exertion GI Denies hematochezia and Denies change in stool character Musc Denies abnormal gait, Denies muscle cramps, Denies muscle weakness, Denies numbness, Denies radiating pain into limb and Denies tingling Neuro Denies abnormal gait, Denies dizziness, Denies syncope, Denies numbness, Denies tingling and Denies weakness Endo Denies palpitations Physical Exam Vital Signs: Last Vital Signs Pulse 54 10/04/23 14:46 BP 110/50 L 10/04/23 14:46 Pulse Ox 98 10/04/23 14:46 Oxygen Delivery Method Room Air 10/04/23 14:46 BMI result Body Mass Index 23.8 Const General: healthy appearing and no acute distress Orientation/consciousness: patient oriented x3 HEENT Head: Yes normal to inspection Eyes General: appearance normal, both eyes and all related structures Neck Neck: Yes normal visual inspection Chest Chest palpation & inspection: normal inspection of the chest Resp Effort & Inspection: normal respiratory effort Auscultation: clear to auscultation bilaterally Cardio Jugular venous distension: no JVD Palpation: normal PMI Rate: regular rate Rhythm: regular rhythm Heart sounds: S1 normal heart sound present, S2 normal heart sound present, no click, no gallops, no murmurs and no rubs GI Inspection: Yes normal to inspection Palpation (GI): Soft to palpation Skin General skin exam: no rashes or lesions noted Neuro General: patient oriented x3 Extrem General: Yes normal to inspection Psych Appearance: grossly normal Office Procedures EKG Details: EKG today. Sinus Bradycardia. Rate 54 bpm. QRS 94ms. QTc 422ms. [id number], Complete Results Reviewed Results Reviewed: Echocardiogram Conclusions: - The calculated ejection fraction is 64% by biplane method. There is no evidence of regional wall motion abnormalities. - Evidence suggests grade III (severe) diastolic dysfunction. - No obvious valvular pathology seen on this study. Assessment & Plan Assessment & Plan (1) Diastolic dysfunction: Code(s): I51.89 - Other ill-defined heart diseases Category: Medical Plan: Echocardiogram shows grade III diastolic dysfunction. Last echcoardiogram in 2019 was a normal study. Discussed in detail about getting diabetes controlled, low salt in diet, and daily weights. Will do lab work and pharmacological stress test. Patient and daugter agree. Orders: Orders B Type Natriuretic Peptide 10/04/23 I51.89 - Other ill-defined heart diseases CA lexiscan stress w naomy 10/04/23 I51.89 - Other ill-defined heart diseases Basic Metabolic Panel 10/04/23 I51.89 - Other ill-defined heart diseases NM cardiolite stress test 10/04/23 I51.89 - Other ill-defined heart diseases Coding Level of Care Code Est Pt Level 3 (96415) Diagnoses Diastolic dysfunction I51.89 CPT Codes EKG - CPT: 40937-[id number], Complete ([id number])
[2023-10-04 14:46] VITALS: BP 110/50; PULSE 54; O2SAT 98; BMI 23.8
== END 2023-10-04 15:40 | disposition home or self-care (01) ==
PROVIDERS: PCP Internal Medicine; Visit Provider Nurse Practitioner
DX: I51.89 Other ill-defined heart diseases (principal)
CPT/HCPCS: 93010; 99213

== ENCOUNTER 2023-10-04 14:42 | Outpatient (REF) | payer OTHER, SELFPAY ==
[2023-10-04 17:34] LABS: B Type Natriuretic Peptide 106 pg/mL (<100)
[2023-10-04 19:31] LABS: Anion Gap 15 (12-20); Blood Urea Nitrogen 42 mg/dL (9-16); Calcium 8.9 mg/dL (8.4-10.2); Carbon Dioxide 25 mmol/L (22-29); Chloride 100 mmol/L (96-108); Estimated Glomerular Filt Rate 31; Glucose Random 363 mg/dL (60-115); Sodium 135 mmol/L (135-145)
== END 2023-10-04 14:43 | disposition home or self-care (01) ==
LOC: HO.LAB 14:42
PROVIDERS: PCP Internal Medicine; Visit Provider Nurse Practitioner
DX: I51.89 Other ill-defined heart diseases (principal)
CPT/HCPCS: 36415; 80048; 83880; 93005; 99212

== ENCOUNTER 2023-10-09 11:15 | Outpatient (REF) | payer OTHER, SELFPAY | END 2023-10-09 11:16 | disposition home or self-care (01) | LOC: HO.LNP 11:15 | PROVIDERS: Visit Provider Family Medicine | DX: E11.22 Type 2 diabetes mellitus with diabetic chronic kidney disease (principal); N18.30 Chronic kidney disease, stage 3 unspecified; N39.0 Urinary tract infection, site not specified | CPT/HCPCS: 87086 ==

== ENCOUNTER 2023-10-11 12:17 | Emergency (ER) | payer OTHER, SELFPAY ==
--- NOTE | ~2023-10-11 | CT_ITS ---
EXAMINATION: CT HEAD WITHOUT CONTRAST CLINICAL INFORMATION: Dizziness. COMPARISON: CT head dated 09/01/2021. TECHNIQUE: Contiguous axial imaging was performed from the skull base to vertex without intravenous administration of contrast. This CT examination was performed using dose optimization techniques as appropriate, variously including the following: *Automated exposure control *Adjustment of mA and/or kV according to patient size (this includes techniques or standardized protocols for targeted exams where dose is matched to indication/reason for exam; i.e. extremities or head) *Use of iterative reconstruction technique DLP: 564 mGy-cm FINDINGS: There is no acute intracranial hemorrhage. There is no evidence of acute/subacute cerebral or cerebellar infarction. There is no midline shift or mass effect. There is no extra-axial fluid collection. The ventricles are normal in size. The orbits are symmetric and within normal limits. The calvarium is intact. The visualized paranasal sinuses and mastoid air cells are clear. CT/CT head/brain wo IV con IMPRESSION: No acute intracranial pathology.
[2023-10-11 12:33] LABS: Glucose, Whole Blood 337 mg/dL (60-115)
--- NOTE | 2023-10-11 12:46 | ED.GENADULT ---
HPI - General Adult General Chief complaint: Recheck/Abnormal Lab/Rx Stated complaint: sugar 521, dizzy, trouble walking Time Seen by Provider: 10/11/23 20:23 Source: patient, family and RN notes reviewed Mode of arrival: ambulatory Limitations: language barrier (Daughter as preferred boarding kennel or cattery operator, declined hospital interpret) History of Present Illness HPI narrative: 68-year-old female who has a history of diabetes, hypertension, GERD, high cholesterol, presents for evaluation of hyperglycemia. According to the patient and her daughter, the patient was at a day program, had some cake and had her glucose checked and it was noted to be 527. Patient did not have any physical complaints at the time but was instructed to report to the emergency department for further evaluation. Currently the patient is asymptomatic and has no physical complaints. She she does not recall any other recent elevated glucose levels. She is compliant with all her medications, including metformin. Related Data Home Medications ?Medication ?Instructions ?Recorded ?Confirmed calcium carbonate 600 mg-vitamin 1 tab PO BID 03/09/20 07/11/23 D3 10 mcg (400 unit) tablet ferrous sulfate 325 mg (65 mg 325 mg PO BID 03/09/20 07/11/23 iron) tablet oxybutynin chloride 5 mg tablet 5 mg PO BID 03/09/20 07/11/23 trazodone 100 mg tablet 100 mg PO BEDTIME PRN 03/09/20 07/11/23 aspirin 81 mg tablet,delayed 81 mg PO DAILY 11/21/22 07/11/23 release (Adult Aspirin Regimen) escitalopram oxalate 20 mg tablet 20 mg PO DAILY 05/30/23 07/11/23 meclizine 25 mg tablet 25 mg PO DAILY PRN 06/27/23 07/11/23 bupropion HCl 150 mg 24 hr tablet, 150 mg PO QAM 07/26/23 extended release multivitamin 1 tab PO DAILY 07/26/23 furosemide 20 mg tablet 20 mg PO DAILY 09/25/23 Previous Rx's ?Medication ?Instructions ?Recorded blood-glucose meter (FreeStyle #1 ea 09/29/20 Lite Meter kit) Bacillus coagulans 800 million See Rx Instructions PO .COMPLEX 30 06/09/21 cell tablet (Digestive Advantage days #30 tabs Probiotics-Prebiotic) atorvastatin 80 mg tablet 80 mg PO BEDTIME #30 tabs 10/03/21 blood sugar diagnostic (FreeStyle #200 ea 10/04/21 Lite Strips) gabapentin 300 mg capsule 300 mg PO BEDTIME #90 caps 12/19/21 cholecalciferol (vitamin D3) 50 50 mcg PO DAILY #90 caps 01/08/22 mcg (2,000 unit) capsule diabetic shoes #1 ea 04/05/22 sennosides 8.6 mg tablet (senna) 17.2 mg (2 x 8.6 mg) PO BEDTIME 08/09/22 PRN for constipation #60 tabs acarbose 25 mg tablet 25 mg PO TID #270 tabs 11/19/22 diabetic shoes #1 ea 12/21/22 amlodipine 5 mg tablet 5 mg PO DAILY #90 tabs 05/06/23 famotidine 40 mg tablet (Pepcid) 40 mg PO BEDTIME 30 days #30 tabs 05/30/23 metoclopramide HCl 5 mg tablet 5 mg PO QID #120 tabs 05/30/23 rabeprazole 20 mg tablet,delayed 20 mg PO BID #60 tabs 05/30/23 release (AcipHex) simethicone 180 mg capsule 180 mg PO TID #90 caps 05/30/23 flecainide 50 mg tablet 50 mg PO Q12H #180 tabs 08/26/23 metformin 1,000 mg tablet 1,000 mg PO BID #180 tabs 09/04/23 dicyclomine 20 mg tablet 20 mg PO QID #360 tabs 09/16/23 metoprolol succinate 25 mg 25 mg PO DAILY #90 tabs 09/23/23 tablet,extended release 24 hr linaclotide 145 mcg capsule 145 mcg PO QAM #30 caps 09/25/23 (Linzess) Allergies Allergy/AdvReac Type Severity Reaction Status Date / Time No Known Allergies Allergy Verified 10/11/23 12:55 Review of Systems Constitutional: Constitutional: Denies chills, Denies fever(s) and Denies headache(s) Eyes: Eyes: Denies change in vision and Denies other (No redness.) ENT: Denies headache(s), Denies nasal congestion, Denies nasal discharge, Denies neck pain and Denies sore throat Cardiovascular: Cardiovascular: Denies chest pain, Denies palpitations, Denies dyspnea, Denies dyspnea on exertion and Denies orthopnea Respiratory: Respiratory: Denies cough, Denies dyspnea and Denies dyspnea on exertion Gastrointestinal: Gastrointestinal: Denies abdominal pain, Denies melena, Denies hematochezia, Denies diarrhea, Denies nausea and Denies vomiting Genitourinary: Genitourinary: Denies dysuria and Denies urinary urgency Musculoskeletal: Musculoskeletal: Denies back pain, Denies muscle weakness, Denies neck pain and Denies numbness Integumentary/Breasts: Skin/Breast: Denies rash Neurologic: Denies headache(s), Denies focal weakness and Denies numbness Psychiatric: Psychiatric: Denies depression Endocrine: Endocrine: Denies palpitations FORMERLY [facility], 1928–1983 Past Medical History Attestation statement: The following information was validated with the patient. FORMERLY [facility], 1928–1983 Narrative: Reviewed past medical history with the patient and her daughter. Source: obtained from family Medical History Diastolic dysfunction Bradycardia Encounter for monitoring anti-arrhythmic therapy Essential hypertension Nausea and vomiting Dysphagia Globus sensation Presence of Watchman left atrial appendage closure device Small intestinal bacterial overgrowth Orthostatic hypotension Presence of Watchman left atrial appendage closure device Subdural hematoma Syncope and collapse PAF (paroxysmal atrial fibrillation) Vitamin D deficiency Anxiety Depression Overweight (BMI 25.0-29.9) Dyslipidemia Non-toxic multinodular goiter Diabetic polyneuropathy associated with type 2 diabetes mellitus Diabetic retinopathy associated with type 2 diabetes mellitus Diabetes type 2, controlled Surgical History History of cholecystectomy H/O esophagogastroduodenoscopy Hx of colonoscopy History of gastric bypass Hx of knee surgery Hx of hand surgery Family History Family History Father CVD (cardiovascular disease) Mother Diabetes Social History Social History Household Members: Spouse Alcohol intake: never Patient Tobacco Use Status: Current everyday Tobacco user Advance Directives: No Advance Directives Information Provided: No Physical Exam ED Vital Signs: Vital Signs - 24 hr 10/11/23 12:47 10/11/23 19:39 Temperature 97.7 F 97.9 F Pulse Rate 51 72 Respiratory Rate 14 20 Blood Pressure 105/42 L 164/63 H Pulse Oximetry 100 98 Oxygen Delivery Method Room Air Room Air BMI result Body Mass Index 25.9 Const General: cooperative and no acute distress Resp Effort & Inspection: normal respiratory effort Auscultation: clear to auscultation bilaterally Cardio Rate: regular rate Rhythm: regular rhythm GI Other: Abdomen is soft and nontender. No peritoneal signs. No CVAT Extrem Other: No calf tenderness or pedal edema Course Course Course Narrative: This is an RME: Additional HPI, ROS, PE not included below will be deferred to primary provider. RME assessment and note performed by: Yary Barragan PA-C This is a [id number]-female, with a hx of anxiety, depression, non insulin dependent diabetes, dyslipidemia, PAF, subdural hematoma, who presents to the ER with a complaint of hyperglycemia. She is currently on metformin. Pt has had episodes of hyperglycemia last week and this week. Daughter reports that she ate a piece of cake and her blood glucose level was 531. Daughter reports that she has been more tired lately. Patient is neurologically intact. Strength 5/5 in upper and lower extremities. Plan: EKG, labs, UA Medical Decision Making Medical Decision Making [facility] Narrative: 68-year-old female with a history of diabetes, hypertension among other medical issues, presents for evaluation of hyperglycemia. Glucose has improved on its own to 165. The patient is currently asymptomatic and has no physical complaints at this time. She and her daughter confirmed that she has appropriate medication at home that she will continue to take as well as glucose testing supplies. They will follow up with her PCP. I reviewed all labs and imaging with the patient and her daughter. No further questions at this time Differential Diagnosis Differential Diagnoses: The differential diagnosis associated with the presentation includes DKA Hyperglycemia Dehydration Metabolic abnormality Admission/Observation Consideration of admission/observation: Escalation of care including admission/observation considered Consideration for admission if medically warranted. Lab Data [facility] Lab Attestation statement: I reviewed the patient's lab results. 10/11/23 13:14 10/11/23 13:14 Labs: Lab Results 10/11/23 10/11/23 10/11/23 Range/Units 12:28 13:14 13:24 WBC 6.0 (4.8-10.8) X10*3/uL RBC 3.87 L (4.20-5.50) X10*6/uL Hgb 12.0 (12.0-16.0) g/dl Hct 36.2 L (37.0-47.0) % MCV 93.5 (80.0-98.0) fL MCH 31.0 (27.0-33.0) pg MCHC 33.1 (31.0-35.0) g/dl RDW 12.5 (11.0-16.0) % Plt Count 169 (160-400) X10*3/uL MPV 10.6 (9.4-12.3) fL Immature Gran % (Auto) 0.3 (0.0-0.4) % Neut % (Auto) 74.0 H (45-73) % Lymph % (Auto) 17.0 L (20-40) % [place] % (Auto) 6.3 (2-11) % Eos % (Auto) 2.2 (0-4) % Baso % (Auto) 0.2 (0-2) % Lymph # (Auto) 1.0 L (1.2-4.9) X10*3/uL [place] # (Auto) 0.4 (0.1-1.2) X10*3/uL Eos # (Auto) 0.1 (0.0-0.4) X10*3/uL Baso # (Auto) 0.0 (0.0-0.2) X10*3/uL Abs Immat Gran (auto) 0.02 (0.00-0.03) X10*3/uL Absolute Neuts (auto) 4.4 (2.0-8.3) x10*3/uL Absolute Nucleated RBC 0.000 (0.0-0.012) X10*3/uL Nucleated RBC % (auto) 0.0 (0.0-0.2) /100WBC VBG pH 7.32 (7.32-7.43) VBG pCO2 45 mmHg VBG pO2 42 mmHg VBG HCO3 23 (22-26) mmol/L VBG O2 Saturation 62.0 % VBG Base Excess -2.7 mmol/L Sodium 135 (135-145) mmol/L Potassium 4.6 (3.3-5.1) mmol/L Chloride 104 (96-108) mmol/L Carbon Dioxide 24 (22-29) mmol/L Anion Gap 12 (12-20) BUN 36 H (9-16) mg/dL Creatinine 1.62 H (0.5-1.4) mg/dL Estim Creat Clear Calc 32.4 Estimated GFR 32 POC Glucose 337 H (60-115) mg/dL Random Glucose 278 H (60-115) mg/dL Calcium 9.2 (8.4-10.2) mg/dL Magnesium 1.6 (1.6-2.6) mg/dL Total Bilirubin 0.3 (0.0-1.0) mg/dL Direct Bilirubin 0.2 (0.0-0.5) mg/dL AST 52 H (5-31) U/L ALT 77 H (0-31) U/L Alkaline Phosphatase 83 (39-117) U/L Troponin I High Sens 9.1 (<3.5-17.0) ng/L Total Protein 7.4 (6.5-8.0) g/dL Albumin 3.9 (3.5-5.0) g/dL Lipase 57 (8-78) U/L Beta-Hydroxybutyrate 0.16 (0.02-0.27) mmol/L Urine Color Urine Appearance Urine pH (5.0-9.0) Ur Specific [place] (1.005-1.025) Urine Protein (Neg-Trace) mg/dL Urine Glucose (UA) (Negative) mg/dL Urine Ketones (Negative) mg/dL Urine Blood (Negative) Urine Nitrite (Negative) Ur Leukocyte Esterase (Negative) Urine RBC (0-2) /HPF Urine WBC (0-5) /HPF Ur Squamous Epith Cells (0-2) /HPF Urine Bacteria (None Seen) Hyaline Casts (0-2) /LPF 24 10/11/23 Range/Units 19:35 19:42 WBC (4.8-10.8) X10*3/uL RBC (4.20-5.50) X10*6/uL Hgb (12.0-16.0) g/dl Hct (37.0-47.0) % MCV (80.0-98.0) fL MCH (27.0-33.0) pg MCHC (31.0-35.0) g/dl RDW (11.0-16.0) % Plt Count (160-400) X10*3/uL MPV (9.4-12.3) fL Immature Gran % (Auto) (0.0-0.4) % Neut % (Auto) (45-73) % Lymph % (Auto) (20-40) % [place] % (Auto) (2-11) % Eos % (Auto) (0-4) % Baso % (Auto) (0-2) % Lymph # (Auto) (1.2-4.9) X10*3/uL [place] # (Auto) (0.1-1.2) X10*3/uL Eos # (Auto) (0.0-0.4) X10*3/uL Baso # (Auto) (0.0-0.2) X10*3/uL Abs Immat Gran (auto) (0.00-0.03) X10*3/uL Absolute Neuts (auto) (2.0-8.3) x10*3/uL Absolute Nucleated RBC (0.0-0.012) X10*3/uL Nucleated RBC % (auto) (0.0-0.2) /100WBC VBG pH (7.32-7.43) VBG pCO2 mmHg VBG pO2 mmHg VBG HCO3 (22-26) mmol/L VBG O2 Saturation % VBG Base Excess mmol/L Sodium (135-145) mmol/L Potassium (3.3-5.1) mmol/L Chloride (96-108) mmol/L Carbon Dioxide (22-29) mmol/L Anion Gap (12-20) BUN (9-16) mg/dL Creatinine (0.5-1.4) mg/dL Estim Creat Clear Calc Estimated GFR POC Glucose 165 H (60-115) mg/dL Random Glucose (60-115) mg/dL Calcium (8.4-10.2) mg/dL Magnesium (1.6-2.6) mg/dL Total Bilirubin (0.0-1.0) mg/dL Direct Bilirubin (0.0-0.5) mg/dL AST (5-31) U/L ALT (0-31) U/L Alkaline Phosphatase (39-117) U/L Troponin I High Sens (<3.5-17.0) ng/L Total Protein (6.5-8.0) g/dL Albumin (3.5-5.0) g/dL Lipase (8-78) U/L Beta-Hydroxybutyrate (0.02-0.27) mmol/L Urine Color Yellow Urine Appearance Clear Urine pH 5.5 (5.0-9.0) Ur Specific [place] 1.015 (1.005-1.025) Urine Protein Negative (Neg-Trace) mg/dL Urine Glucose (UA) 250 H (Negative) mg/dL Urine Ketones Trace (Negative) mg/dL Urine Blood Negative (Negative) Urine Nitrite Negative (Negative) Ur Leukocyte Esterase Small (1+) H (Negative) Urine RBC 0-2 (0-2) /HPF Urine WBC 0-5 (0-5) /HPF Ur Squamous Epith Cells 3-5 (0-2) /HPF Urine Bacteria Trace (None Seen) Hyaline Casts 0-2 (0-2) /LPF Radiology Impression Discussion of test interpretation with radiology: I have reviewed the radiologist's reading. Radiologist Impression: [place] [id number] CT Scan Report Signed Patient: Dana Winter MR#: [id number] : 1955 Acct:[id number] Age/Sex: 68 / F ADM Date: 10/11/23 Loc: HO.ED Attending Dr: Ordering Physician: Yary Barragan Date of Service: 10/11/23 Procedure(s): CT head/brain wo IV con Accession Number(s): [id number] cc: Cherrie Gómez MD; Yary Barragan~ EXAMINATION: CT HEAD WITHOUT CONTRAST CLINICAL INFORMATION: Dizziness. COMPARISON: CT head dated 09/01/2021. TECHNIQUE: Contiguous axial imaging was performed from the skull base to vertex without intravenous administration of contrast. This CT examination was performed using dose optimization techniques as appropriate, variously including the following: *Automated exposure control *Adjustment of mA and/or kV according to patient size (this includes techniques or standardized protocols for targeted exams where dose is matched to indication/reason for exam; i.e. extremities or head) *Use of iterative reconstruction technique DLP: 564 mGy-cm FINDINGS: There is no acute intracranial hemorrhage. There is no evidence of acute/subacute cerebral or cerebellar infarction. There is no midline shift or mass effect. There is no extra-axial fluid collection. The ventricles are normal in size. The orbits are symmetric and within normal limits. The calvarium is intact. The visualized paranasal sinuses and mastoid air cells are clear. CT/CT head/brain wo IV con IMPRESSION: No acute intracranial pathology. Dictated By: Chava Sanderson Jr, DO Signed By: <Electronically signed by Chava Sanderson Jr, DO in OV> 10/11/23 1557 DD/ 1435 TD/TT: Director Insurance: [employer] Independent Historian Clinical information obtained from an independent historian. History obtained from or confirmed by: Other (Patients daughter) External Record Review External record reviewed: Inpatient record Chronic Conditions Patient?s care impacted by: Diabetes and Hypertension Discharge Plan Discharge Clinical Impression: Acute hyperglycemia Patient Disposition: Home, Self-Care Instructions: Diabetic Hyperglycemia (ED) Additional Instructions: Continue current medications as directed. Closely monitor your glucose levels. Follow-up with your primary care provider. Call this week to schedule a follow-up appointment. Return to the emergency department if you have any worsening of symptoms, or any concerns. Get well soon! Prescriptions: No Action (DME) blood-glucose meter [FreeStyle Lite Meter] Kit See Rx Instructions miscellaneous .MEDSUPPLY Qty: 1 0RF Rx Instructions: Twice a day Digestive Advantage Probio-Pre 800 million cell tablet See Rx Instructions PO .COMPLEX 30 Days Qty: 30 3RF Rx Instructions: 1 tab po qd PO; atorvastatin 80 mg tablet 80 mg PO BEDTIME Qty: 30 11RF (DME) FreeStyle Lite Strips Strip See Rx Instructions .MEDSUPPLY Qty: 200 10RF Rx Instructions: 2times a day gabapentin 300 mg capsule 300 mg PO BEDTIME Qty: 90 1RF cholecalciferol (vitamin D3) 50 mcg (2,000 unit) capsule 50 mcg PO DAILY Qty: 90 4RF (DME) diabetic shoes See Rx Instructions .ROUTE .MEDSUPPLY Qty: 1 0RF Rx Instructions: extra depth orthopedic shoes ( 1 pair ) with customize heat molded multi density inner soles ( 3 pair) Dispense 1 Sig: As directed DX: And IDDM /polyneuropathy ( E11 0.42 ); hammertoe foot deformity ( M 20.41, and 20.42 ) pre ulcerative skin lesion ( L 85.1 ) Diagnosis ( E11 0.42 ) type 2 diabetes with polyneuropathy sennosides [senna] 8.6 mg tablet 17.2 mg PO BEDTIME PRN (Reason: for constipation) Qty: 60 0RF Hold Instructions: Doctor's Order acarbose 25 mg tablet 25 mg PO TID Qty: 270 1RF aspirin [Adult Aspirin Regimen] 81 mg tablet,delayed release (DR/EC) 81 mg PO DAILY amlodipine 5 mg tablet 5 mg PO DAILY Qty: 90 3RF flecainide 50 mg tablet 50 mg PO Q12H Qty: 180 3RF metformin 1,000 mg tablet 1,000 mg PO BID Qty: 180 1RF dicyclomine 20 mg tablet 20 mg PO QID Qty: 360 0RF Hold Instructions: Doctor's Order metoprolol succinate 25 mg tablet extended release 24 hr 25 mg PO DAILY Qty: 90 3RF ferrous sulfate 325 mg (65 mg iron) tablet 325 mg PO BID calcium carbonate-vitamin D3 600 mg(1,500mg) -400 unit tablet 1 tab PO BID trazodone 100 mg tablet 100 mg PO BEDTIME PRN oxybutynin chloride 5 mg tablet 5 mg PO BID (DME) diabetic shoes See Rx Instructions .ROUTE .MEDSUPPLY Qty: 1 0RF Rx Instructions: extra depth orthopedic shoes ( 1 pair ) with customize heat molded multi density inner soles ( 3 pair) Dispense 1 Sig: As directed DX: And IDDM /polyneuropathy ( E11 0.42 ); hammertoe foot deformity ( M 20.41, and 20.42 ) pre ulcerative skin lesion ( L 85.1 ) Diagnosis ( E11 0.42 ) type 2 diabetes with polyneuropathy furosemide 20 mg tablet 20 mg PO DAILY Linzess 145 mcg capsule 145 mcg PO QAM Qty: 30 6RF escitalopram oxalate 20 mg tablet 20 mg PO DAILY famotidine [Pepcid] 40 mg tablet 40 mg PO BEDTIME 30 Days Qty: 30 6RF rabeprazole [AcipHex] 20 mg tablet,delayed release (DR/EC) 20 mg PO BID Qty: 60 6RF simethicone 180 mg capsule 180 mg PO TID Qty: 90 6RF metoclopramide HCl 5 mg tablet 5 mg PO QID Qty: 120 6RF meclizine 25 mg tablet 25 mg PO DAILY PRN bupropion HCl 150 mg tablet extended release 24 hr 150 mg PO QAM multivitamin Tablet 1 tab PO DAILY Discharge Date/Time: 10/11/23 20:39 Print Language: Chinese
[2023-10-11 12:47] VITALS: BP 105/42; PULSE 51; RESP 14; TEMP 36.5; O2SAT 100; BMI 25.9
--- NOTE | 2023-10-11 12:53 | ECG_ITS ---
Test Reason : DIZZINESS Blood Pressure : / mmHG Vent. Rate : 048 BPM Atrial Rate : 048 BPM P-R Int : 180 ms QRS Dur : 092 ms QT Int : 460 ms P-R-T Axes : 060 025 003 degrees QTc Int : 410 ms Sinus bradycardia with sinus arrhythmia Otherwise normal ECG When compared with ECG of 06-AUG-2022 14:14, No significant change was found Referred By: Yary Barragan Electronically Signed By:Shaq Chaney
[2023-10-11 13:20] LABS: MANUAL DIFF FLAG NO
[2023-10-11 13:30] LABS: Venous Blood Gas Refer to POC result
[2023-10-11 13:30] LABS: Basophils Percent Auto 0.2 % (0-2); Eosinophils Absolute Auto 0.1 X10*3/uL (0.0-0.4); Eosinophils Percent Auto 2.2 % (0-4); Hematocrit 36.2 % (37.0-47.0); Imm Gran Abs Auto 0.02 X10*3/uL (0.00-0.03); Imm Gran Pct Auto 0.3 % (0.0-0.4); Mean Corpuscular HGB Conc 33.1 g/dl (31.0-35.0); Mean Corpuscular Volume 93.5 fL (80.0-98.0); Mean Platelet Volume 10.6 fL (9.4-12.3); Monocytes Absolute Auto 0.4 X10*3/uL (0.1-1.2); Monocytes Percent Auto 6.3 % (2-11); Neutrophils Absolute Auto 4.4 x10*3/uL (2.0-8.3); Platelet Count 169 X10*3/uL (160-400); Red Blood Count 3.87 X10*6/uL (4.20-5.50); Red Cell Distribution Width 12.5 % (11.0-16.0)
[2023-10-11 13:30] LABS: VBG Base Excess -2.7 mmol/L; VBG HCO3 23 mmol/L (22-26); VBG pCO2 45 mmHg; VBG pH 7.32 (7.32-7.43); VBG pO2 42 mmHg
[2023-10-11 13:50] LABS: Troponin-I High Sensitivity 9.1 ng/L (<3.5-17.0)
[2023-10-11 13:53] LABS: Alanine Aminotransferase 77 U/L (0-31); Albumin Level 3.9 g/dL (3.5-5.0); Alkaline Phosphatase 83 U/L (39-117); Anion Gap 12 (12-20); Aspartate Amino Transferase 52 U/L (5-31); Beta-Hydroxybutyrate 0.16 mmol/L (0.02-0.27); Bilirubin Direct 0.2 mg/dL (0.0-0.5); Bilirubin Total 0.3 mg/dL (0.0-1.0); Blood Urea Nitrogen 36 mg/dL (9-16); Calcium 9.2 mg/dL (8.4-10.2); Carbon Dioxide 24 mmol/L (22-29); Chloride 104 mmol/L (96-108); Creatinine Clr Calc Pharmacy 32.4; Estimated Glomerular Filt Rate 32; Glucose Random 278 mg/dL (60-115); Lipase 57 U/L (8-78); Magnesium 1.6 mg/dL (1.6-2.6); Potassium 4.6 mmol/L (3.3-5.1); Sodium 135 mmol/L (135-145); Total Protein 7.4 g/dL (6.5-8.0)
[2023-10-11 19:39] VITALS: BP 164/63; PULSE 72; RESP 20; TEMP 36.6; O2SAT 98
[2023-10-11 19:47] LABS: Glucose, Whole Blood 165 mg/dL (60-115)
[2023-10-11 19:48] LABS: Appearance Urine Clear; Color Urine Yellow; Glucose Urine UA 250 mg/dL (Negative); Leukocyte Esterase Urine Small (1+) (Negative); Nitrite Urine Negative (Negative); PH 5.5 (5.0-9.0); Specific Gravity - Urine 1.015 (1.005-1.025); UMIC TRIGGER UACC YES; Urine Blood Negative (Negative); Urine Ketones Trace mg/dL (Negative); Urine Protein Negative (Neg-Trace)
[2023-10-11 20:02] LABS: Bacteria Urine Trace (None Seen); Hyaline Casts Urine 0-2 /LPF (0-2); RBC Urine 0-2 /HPF (0-2); UACC Culture Trigger YES; WBC Urine 0-5 /HPF (0-5)
[2023-10-11 20:37] VITALS: BP 164/63; PULSE 72; RESP 20; TEMP 36.6; O2SAT 98
== END 2023-10-11 20:39 | disposition home or self-care (01) ==
PROVIDERS: Physician Assistant Medical; Emergency Provider Emergency Medicine; PCP Internal Medicine
DX: E11.65 Type 2 diabetes mellitus with hyperglycemia (principal); R42 Dizziness and giddiness; I10 Essential (primary) hypertension; K21.9 Gastro-esophageal reflux disease without esophagitis; Z79.899 Other long term (current) drug therapy
CPT/HCPCS: 36415; 70450; 80048; 80076; 81001; 82010; 82803; 82947; 83690; 83735; 84484; 85025; 87086; 93005; 99284

== ENCOUNTER → 2023-10-11 12:53 | Outpatient (BNV) | payer OTHER, SELFPAY | PROVIDERS: Emergency Provider Emergency Medicine; PCP Internal Medicine; Visit Provider Internal Medicine Cardiovascular Disease | DX: R42 Dizziness and giddiness (principal) | CPT/HCPCS: 93010 ==

== ENCOUNTER 2023-10-18 10:02 | Outpatient (AMB) | payer OTHER, SELFPAY ==
--- NOTE | 2023-10-18 10:03 | MHC.OFFVIS ---
Vital Signs 10/18/23 10:08 Height 5 ft 4 in Weight 141 lb 8.588 oz BMI 24.3 BP 112/52 L Blood Pressure Location Rt brachial Position Sitting Pulse 50 Pulse Source Pulse Oximeter Intake Visit Reasons: [id number] Intake Note: Patient present today to follow up on Type 2 Diabetes Mellitus. Last Diabetic Eye exam: February 2023 Last Podiatry Visit: Does not see a Gambling Floor Supervisor Random Glucose: 281 mg/dl HgA1C: 9.6% Auxiliary Operator Required: No Auxiliary Operator Name: Refusal Sign Accompanied by: Daughter Allergies No Known Allergies Allergy (Verified 10/18/23 10:09) Medication List - Last Reconciled 10/18/23 by Janel Lozada PA-C acarbose 25 mg PO TID amlodipine 5 mg PO DAILY aspirin (Adult Aspirin Regimen) 81 mg PO DAILY atorvastatin 80 mg PO BEDTIME Bacillus coagulans (Digestive Advantage Probiotics-Prebiotic) 1 tab po qd PO; 30 days blood sugar diagnostic (FreeStyle Lite Strips) 2times a day blood-glucose meter (FreeStyle Lite Meter kit) Twice a day calcium carbonate-vitamin D3 600 mg-10 mcg (400 unit) 1 tab PO BID cholecalciferol (vitamin D3) 50 mcg PO DAILY [diabetic shoes extra depth orthopedic shoes ( 1 pair ) with customize heat molded multi density inner soles ( 3 pair) Dispense 1 Sig: As directed DX: And IDDM /polyneuropathy ( E11 0.42 ); hammertoe foot deformity ( M 20.41, and 20.42 ) pre ulcerative skin lesion ( L 85.1 ) Diagnosis ( E11 0.42 ) type 2 diabetes with polyneuropathy] [diabetic shoes extra depth orthopedic shoes ( 1 pair ) with customize heat molded multi density inner soles ( 3 pair) Dispense 1 Sig: As directed DX: And IDDM /polyneuropathy ( E11 0.42 ); hammertoe foot deformity ( M 20.41, and 20.42 ) pre ulcerative skin lesion ( L 85.1 ) Diagnosis ( E11 0.42 ) type 2 diabetes with polyneuropathy] dicyclomine 20 mg PO QID escitalopram oxalate 20 mg PO DAILY famotidine (Pepcid) 40 mg PO BEDTIME 30 days ferrous sulfate 325 mg PO BID flecainide 50 mg PO Q12H furosemide 20 mg PO DAILY gabapentin 300 mg PO BEDTIME lancets (FreeStyle Lancets) As directed meclizine 25 mg PO DAILY PRN metformin 1,000 mg PO BID metoclopramide HCl 5 mg PO QID metoprolol succinate ER 25 mg PO DAILY multivitamin 1 tab PO DAILY oxybutynin chloride 5 mg PO BID rabeprazole (AcipHex) 20 mg PO BID sennosides (senna) 17.2 mg (2 x 8.6 mg) PO BEDTIME PRN simethicone 180 mg PO TID trazodone 100 mg PO BEDTIME PRN HPI HPI [id number]: Details: Patient is a 68-year-old female with a significant past medical history of type 2 diabetes, hypertension, orthostatic hypotension, bradycardia, paroxysmal AFib, dyslipidemia, ckd (since 2019), peripheral neuropathy, celiac disease multinodular goiter and s/p gastric bypass, anxiety and depression presenting today for a diabetic follow-up. She is mostly Indonesian-speaking and her daughter is present today to help with translation. They declined bodily injury adjuster. Endo: She was recently in the ER for hyperglycemia with a blood sugar of 527. Since the ER her blood sugars have been. She is currently on acarbose 25 mg TID, metformin 1000 mg bid. Her A1c was 9.6 today and 6 months ago was 6.8. Patient's daughter states that the patient is going there is some vision mental health issues right now and is currently being worked up for dementia. She wonders if this is why there has been such a change in the blood sugar because her diet has significantly changed. She states that she was told she cannot eat gluten anymore in this has been very hard for her. She does not like the idea of not being able to eat sweet things. She has followed with a java grails developer and certified adaptive physical educator. In the past she was on insulin but took herself off of this because she was doing well with her blood sugars. She tells me today that she absolutely will not go on insulin. Blood sugars at home are around 200-300. She states her pcp ? starting mounjaro but she is unsure of injections. eye- denies any complications. 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 Does have peripheral neuropathy and checks her feet regularly. No sores. She does have diabetic shoes. She is on gabapentin 300 mg at bedtime -complications include gastroparesis, nephropathy, polyneuropathy GI: She does have gastroparesis and is on metocloppramide , simethicone, famotidine and aciphex. She follows with Dr. Edmond and had gastric emptying study in the fall of 2022. It did show a moderate amount of retention. She questions if the acarbose is causing some of the gas and bloating. Ordering if we can decrease this medication but also refuses insulin. Nephrology: Patient's daughter states that she recently realize that the patient has been following with Nephrology. She normally manages her mother's appointments. She follows with Dr. Otoole. Patient states that she tries to avoid NSAIDs. CV: bp today in the office is 112/52. She is on amlodipine 5 mg, metoprolol 25 mg, furosemide 20 mg, flecainide 50 mg twice a day. In the past was more symptomatic with orthostatic hypertension and was on midodrine but given elevated blood pressures this was eventually stopped and she was started on the amlodipine for better blood pressure control. She states she last Cardiology and they are proceeding with a pacemaker. She normally follows with Dr. Anthony. Psych: Following closely with Psychiatry. She is in a day program in being monitored every day. Waiting for neuropsych testing. She recently had meds adjusted and discontinued Wellbutrin. No SI/HI. PFSH Medical History (Updated 10/18/23 @ 11:28 by Janel Lozada PA-C) CKD stage 3 secondary to diabetes Gastroparesis due to secondary diabetes Diastolic dysfunction Bradycardia Encounter for monitoring anti-arrhythmic therapy Essential hypertension Nausea and vomiting Dysphagia Globus sensation Presence of Watchman left atrial appendage closure device Small intestinal bacterial overgrowth Orthostatic hypotension Presence of Watchman left atrial appendage closure device Subdural hematoma Syncope and collapse PAF (paroxysmal atrial fibrillation) Vitamin D deficiency Anxiety Depression Overweight (BMI 25.0-29.9) Dyslipidemia Non-toxic multinodular goiter Diabetic polyneuropathy associated with type 2 diabetes mellitus Diabetic retinopathy associated with type 2 diabetes mellitus Diabetes type 2, controlled Surgical History Hx of breast reduction, elective History of cholecystectomy H/O esophagogastroduodenoscopy Hx of colonoscopy History of gastric bypass Hx of hand surgery Family History Father CVD (cardiovascular disease) Mother Diabetes Social History Household Members: Spouse Alcohol intake: never Patient Tobacco Use Status: Current everyday Tobacco user Physical Exam Vital Signs: Last Vital Signs Pulse 50 10/18/23 10:08 BP 112/52 L 10/18/23 10:08 BMI result Body Mass Index 24.3 Const Orientation/consciousness: patient oriented x3 HEENT Ears: hearing grossly normal bilaterally Neck Thyroid: Thyroid normal Lymphatic: no lymphadenopathy noted Resp Auscultation: clear to auscultation bilaterally Cardio Rate: regular rate Rhythm: regular rhythm Heart sounds: S1 normal heart sound present and S2 normal heart sound present Skin General skin exam: no rashes or lesions noted Neuro General: patient oriented x3, gait normal and no focal motor deficits Extrem General: Yes normal to inspection and Yes capillary refill normal Results AMB Hemoglobin A1c AMB Hemoglobin A1c 9.6 % Last Edit by SEBASTIAN Aden on 10/18/23 10:34 Results Reviewed Results Reviewed: Laboratory Last Values Glucose (Clinic) 281 mg/dL (60-115) H 10/18/23 10:24 Laboratory Tests 10/03/21 10/04/23 Unknown 16:04 Sodium 135 Potassium 5.0 Chloride 100 Carbon Dioxide 25 Anion Gap 15 BUN 42 H Creatinine 1.67 H Estimated GFR 31 Calcium 8.9 D Urine Creatinine 86.84 Urine Microalbumin 5.0 Microalb/Creat Ratio 5.7 TECHNIQUE: A standard meal consisting of 3 oz of Egg Beaters brand tagged with 1000 microcuries Tc-99m Sulfur Colloid, 8 oz water and 2 slices of toast with jelly was administered orally to the patient. Images were obtained using a dual head gamma camera in the anterior and posterior projections over of the stomach immediately post ingestion and at hourly intervals up to 4 hours post ingestion. The anterior and posterior counts at each time interval were averaged using the geometric mean and expressed as percentage of the immediate post ingestion counts. FINDINGS: There is good visualization of activity in the stomach immediately post ingestion. As the study progresses, there is delayed clearance of activity from the stomach and delayed visualization of progressively increasing small bowel activity. By the end of the study, there is significant retention noted in the stomach. Retention in the stomach at each time interval was: 1 hour 64% (normal 37%-90%) 2 hours 52% (normal 30%-60%) 3 hours 36% 4 hours 29% (normal 0%-10%) NM/NM gastric emptying study IMPRESSION: Abnormal delayed 4 hour gastric emptying study, new since the prior study dated 06/05/2019. (For solid meal, rapid gastric emptying is less than 30% at 60 minutes. Delayed gastric emptying criteria is more than 60% remaining at 120 minutes or more than 10% at 240 minutes. The 4-hour value is the best discriminator of a normal or abnormal result) Gastric emptying study grading per JNMT Consensus Recommendations in 2008 (https://tech.snmjournals.org/content/36/44) Grade 1 (mild retention): 11-20% at 4h Grade 2 (moderate retention): 21-35% at 4h Grade 3 (severe retention): 36-50% at 4h Grade 4 (very severe retention): >50% retention at 4h Echocardiogram Conclusions: - The calculated ejection fraction is 64% by biplane method. There is no evidence of regional wall motion abnormalities. - Evidence suggests grade III (severe) diastolic dysfunction. - No obvious valvular pathology seen on this study. Assessment & Plan Assessment & Plan (1) Diabetic polyneuropathy associated with type 2 diabetes mellitus: Code(s): E11.42 - Type 2 diabetes mellitus with diabetic polyneuropathy Category: Medical Plan: Sensation is present but diminished. No wounds on exam.. Discussed the importance of managing her diabetes. Will start Jardiance. Discussed risks and benefits and adverse effects of this medication at length including risk of yeast infections, UTIs, hypovolemia. Advised to monitor blood pressures and dizziness closely. Advised that she must work on hydration. I will have her follow-up in 3-4 weeks to be reassessed. She will bring in her glucometer to that visit. She for guarded for today. She will continue on gabapentin for the neuropathy. Diabetic labs ordered. Advised to complete these prior to our appointment. (2) History of gastric bypass: Code(s): Z98.84 - Bariatric surgery status Category: Medical Plan: Will hold off on Ozempic/mounjaro at this point due to bypass and gastroparesis. (3) Gastroparesis due to secondary diabetes: Code(s): E13.43 - Other specified diabetes mellitus with diabetic autonomic (poly)neuropathy Category: Medical Plan: As above (4) Hypertension: Code(s): I10 - Essential (primary) hypertension Category: Medical Qualifiers: Hypertension type: primary hypertension Qualified Code(s): I10 - Essential (primary) hypertension Plan: Has a blood pressure cuff at home and will monitor. (5) CKD stage 3 secondary to diabetes: Code(s): E11.22 - Type 2 diabetes mellitus with diabetic chronic kidney disease; N18.30 - Chronic kidney disease, stage 3 unspecified Category: Medical Plan: Will start Jardiance. Discussed that I would like Dr. Otoole is notes. They will get these prior to her next appointment. Advised to avoid NSAIDs. Will monitor renal function. Patient understands and agrees with this plan. I did spend more than an hour with the patient and daughter. Orders: Orders Thyroid Stimulating Hormone Today E13.43 - Other specified diabetes mellitus with diabetic autonomic (poly)neuropathy AMB Hemoglobin A1c Today E11.42 - Type 2 diabetes mellitus with diabetic polyneuropathy Microalbumin, Random (w Creat) Today E11.319 - Type 2 diabetes mellitus with unspecified diabetic retinopathy without macular edema, E11.42 - Type 2 diabetes mellitus with diabetic polyneuropathy, I10 - Essential (primary) hypertension, Z98.84 - Bariatric surgery status Lipid Panel Today E11.319 - Type 2 diabetes mellitus with unspecified diabetic retinopathy without macular edema, E11.42 - Type 2 diabetes mellitus with diabetic polyneuropathy, I10 - Essential (primary) hypertension, Z98.84 - Bariatric surgery status Comprehensive [place]. Panel Fast Today E11.319 - Type 2 diabetes mellitus with unspecified diabetic retinopathy without macular edema, E11.42 - Type 2 diabetes mellitus with diabetic polyneuropathy, I10 - Essential (primary) hypertension, Z98.84 - Bariatric surgery status Medications: New empagliflozin (Demetriodiance) 10 mg PO DAILY 30 tabs 1RF Coding Level of Care Code Est Pt Level 5 (88993) Complex EM visit Add On G2211 Diagnoses Diabetic polyneuropathy associated with type 2 diabetes mellitus E11.42 History of gastric bypass Z98.84 Gastroparesis due to secondary diabetes E13.43 Primary hypertension I10 Hypertension type: primary hypertension CKD stage 3 secondary to diabetes E11.22; N18.30
[2023-10-18 10:08] VITALS: BP 112/52; PULSE 50; BMI 24.3
[2023-10-18 10:30] LABS: Glucose, Whole Blood 281 mg/dL (60-115)
== END 2023-10-18 11:10 | disposition home or self-care (01) ==
PROVIDERS: PCP Internal Medicine; Visit Provider Physician Assistant
DX: E11.22 Type 2 diabetes mellitus with diabetic chronic kidney disease (principal); N18.30 Chronic kidney disease, stage 3 unspecified; I10 Essential (primary) hypertension; Z98.84 Bariatric surgery status
CPT/HCPCS: 99215; G2211

== ENCOUNTER 2023-10-18 10:02 | Outpatient (REF) | payer OTHER, SELFPAY ==
[2023-10-18 12:41] LABS: Alanine Aminotransferase 77 U/L (0-31); Albumin Level 3.8 g/dL (3.5-5.0); Alkaline Phosphatase 80 U/L (39-117); Anion Gap 13 (12-20); Aspartate Amino Transferase 36 U/L (5-31); Bilirubin Total 0.4 mg/dL (0.0-1.0); Blood Urea Nitrogen 20 mg/dL (9-16); Calcium 9.4 mg/dL (8.4-10.2); Carbon Dioxide 19 mmol/L (22-29); Chloride 107 mmol/L (96-108); Cholesterol 101 mg/dL (<200); Estimated Glomerular Filt Rate 47; Glucose Fasting 280 mg/dL (60-99); HDL Cholesterol 50 mg/dL (>40); LDL Cholesterol Calculated 35 mg/dL (<100); Potassium 4.9 mmol/L (3.3-5.1); Sodium 134 mmol/L (135-145); Total Protein 7.3 g/dL (6.5-8.0); Triglycerides 84 mg/dL (<150)
[2023-10-18 12:58] LABS: Thyroid Stimulating Hormone 0.51 uIU/mL (0.32-4.0)
[2023-10-18 13:14] LABS: Creatinine Urine 81.36 mg/dL
== END 2023-10-18 10:03 | disposition home or self-care (01) ==
LOC: HO.LAB 10:02
PROVIDERS: Absent Provider Nurse Practitioner; PCP Internal Medicine; Visit Provider Physician Assistant
DX: E11.42 Type 2 diabetes mellitus with diabetic polyneuropathy (principal); E11.319 Type 2 diabetes mellitus with unspecified diabetic retinopathy without macular edema; I10 Essential (primary) hypertension; Z98.84 Bariatric surgery status; E13.43 Other specified diabetes mellitus with diabetic autonomic (poly)neuropathy
CPT/HCPCS: 36415; 80053; 80061; 82043; 82570; 82947; 83036; 84443; 99212

== ENCOUNTER 2023-10-23 11:55 | Outpatient (AMB) | payer OTHER, SELFPAY ==
[2023-10-23 12:02] VITALS: BP 148/66; PULSE 54; BMI 24.4
--- NOTE | 2023-10-23 12:02 | MHC.OFFVIS ---
Vital Signs 10/23/23 12:02 Height 5 ft 4 in Weight 142 lb 6.698 oz BMI 24.4 BP 148/66 H Blood Pressure Location Lt brachial Position Sitting Pulse 54 Intake Visit Reasons: 4 week follow up Intake Note: Dana presents to in office follow up celiac disease. CC: Patient states that she always has diarrhea but denies other GI symptoms. Accompanied by: Daughter Allergies No Known Allergies Allergy (Verified 10/23/23 12:09) HPI HPI 4 week follow up: Details: Assessment & Plan (1) Chronic idiopathic constipation: Code(s): K59.04 - Chronic idiopathic constipation Category: Medical (2) Celiac disease: Comment: with acquired absence of specified part of digestive tract (hx of cholecystectomy, gastric bypass surgery) Code(s): K90.0 - Celiac disease Category: Medical (3) GERD (gastroesophageal reflux disease): Code(s): K21.9 - Gastro-esophageal reflux disease without esophagitis Category: Medical Plan Uzbek #dtr translates per pt request She has been complaining of bloating, CIC but still occasional diarrhea. Her daughter admits that the patient does not do well with avoiding gluten for he Celiac disease, and this is likely why she has intermittent diarrhea. This makes it difficult for me to consider if I should increase her Linzess. Her dtr asks if there are any meds we can stop, and I think we can stop famotidine, senna and dicyclomine. She may want to ask her PCP or prescriber about acarbose since this is a very gas producing medication. She is taking AcipHex twice a day, Linzess 72 micro g, metoclopramide 4 times a day, at 5 mg, simethicone, and famotidine for breakthrough. Again we are going to discontinue the dicyclomine and famotidine and increase the Linzess 245 micro g. ROV 4 weeks. Medications: New linaclotide (Linzess) 145 mcg PO QAM 30 caps 6RF Discontinued linaclotide (Linzess) Discontinued Reason: Doctor's Order 72 mcg PO QAM 30 caps 6RF K59.04 - Chronic idiopathic constipation On Hold dicyclomine Hold Comment: Doctor's Order 20 mg PO QID 360 tabs 0RF TODAY'S VISIT Uzbek #dtr translates per pt request She feels that the Linzess 145 micro g is sufficient for her constipation. However she says she is having diarrhea also about every other day. I think maybe we should try adding the dicyclomine back in. She is taking rabeprazole 20mg twice a day, Linzess 145 micro g, metoclopramide 4 times a day, at 5 mg, simethicone, and famotidine for breakthrough.? I am restarting the dicyclomine 20mg qid to combat the occasional diarrhea that she says she has every other day. She is having less bloating, but ? if it is also because she had trouble avoiding gluten for Celiac and lactose. ROV 6 weeks. [facility] Medical History (Updated 10/18/23 @ 11:28 by Janel Lozada PA-C) CKD stage 3 secondary to diabetes Gastroparesis due to secondary diabetes Diastolic dysfunction Bradycardia Encounter for monitoring anti-arrhythmic therapy Essential hypertension Nausea and vomiting Dysphagia Globus sensation Presence of Watchman left atrial appendage closure device Small intestinal bacterial overgrowth Orthostatic hypotension Presence of Watchman left atrial appendage closure device Subdural hematoma Syncope and collapse PAF (paroxysmal atrial fibrillation) Vitamin D deficiency Anxiety Depression Overweight (BMI 25.0-29.9) Dyslipidemia Non-toxic multinodular goiter Diabetic polyneuropathy associated with type 2 diabetes mellitus Diabetic retinopathy associated with type 2 diabetes mellitus Diabetes type 2, controlled Surgical History Hx of breast reduction, elective History of cholecystectomy H/O esophagogastroduodenoscopy Hx of colonoscopy History of gastric bypass Hx of hand surgery Family History Father CVD (cardiovascular disease) Mother Diabetes Social History Household Members: Spouse Alcohol intake: never Patient Tobacco Use Status: Current everyday Tobacco user Review of Systems Const Denies fatigue, Denies fever(s), Denies night sweats, Denies poor appetite and Denies weight loss ENT Reports Normal hearing present, Denies dental pain, Denies dysphagia, Denies hearing loss, Denies mouth pain, Denies odynophagia, Denies throat swelling, Denies tongue swelling and Reports other (Dentition adequate) Card Reports no additional complaints Resp Reports no additional complaints GI Details: Denies abdominal pain, Denies melena, Reports bloating, Denies hematochezia, Reports constipation, Denies GI cramping, Denies dysphagia, Denies excessive flatus, Denies early satiety, Reports heartburn, Reports diarrhea, Denies nausea, Denies odynophagia, Denies vomiting and Denies hematemesis Skin/Breast Denies pruritus, Denies lesions, Denies rash and Denies jaundice Neuro Reports Normal hearing present and Denies Abnormal speech present Endo Denies fatigue Aller/Immun Denies throat swelling and Denies tongue swelling Physical Exam Vital Signs: Last Vital Signs Pulse 54 10/23/23 12:02 BP 148/66 H 10/23/23 12:02 BMI result Body Mass Index 24.4 Const General: cooperative, no acute distress, well developed and well groomed Nutritional Appearance: average body habitus and well nourished Orientation/consciousness: oriented to person, oriented to place and oriented to time Limitations: language barrier HEENT Head: Yes normocephalic and Yes atraumatic Eyes General: appearance normal, both eyes and all related structures Pupils: Equal, round and reactive pupils present Neck Neck: Yes normal visual inspection and Yes no lymphadenopathy Thyroid: Thyroid normal Resp Effort & Inspection: normal respiratory effort and able to speak in complete sentences Auscultation: clear to auscultation bilaterally Cardio Rate: regular rate Rhythm: regular rhythm Heart sounds: Normal, physiologic split S2 sound present Peripheral pulses: radial pulses present and posterior tibial pulses present GI Inspection: No distended and No Abdominal panniculus present Palpation (GI): Soft to palpation, nontender, no guarding, not rigid and No hepatosplenomegaly present Percussion: Yes normal to percussion Auscultation: normal bowel sounds Rectal Exam - Female: deferred Skin General skin exam: no rashes or lesions noted, turgor normal, skin not dry, no jaundice, No spider nevi and no striae Rashes: no rashes Nails: normal Neuro General: oriented to person, oriented to place and oriented to time Cranial nerves: Yes Equal, round and reactive pupils present and Yes Normal hearing present Speech: No Abnormal speech present Extrem General: Yes normal to inspection, No clubbing, No cyanosis and No edema Psych Appearance: grossly normal and well kempt Mental Status: mental status grossly normal Speech and movement: Normal speech and movement present Affect: normal affect Attitude: cooperative Thought process: not confabulating and Impoverished thought process present Thought content: Normal thought content present Insight: Limited insight present (Psych) Judgement: Limited judgement present (Psych) Assessment & Plan Assessment & Plan (1) Chronic idiopathic constipation: Code(s): K59.04 - Chronic idiopathic constipation Category: Medical (2) Celiac disease: Comment: with acquired absence of specified part of digestive tract (hx of cholecystectomy, gastric bypass surgery) Code(s): K90.0 - Celiac disease Category: Medical (3) GERD (gastroesophageal reflux disease): Code(s): K21.9 - Gastro-esophageal reflux disease without esophagitis Category: Medical Plan Uzbek #dtr translates per pt request She feels that the Linzess 145 micro g is sufficient for her constipation. However she says she is having diarrhea also about every other day. I think maybe we should try adding the dicyclomine back in. She is taking rabeprazole 20mg twice a day, Linzess 145 micro g, metoclopramide 4 times a day, at 5 mg, simethicone, and famotidine for breakthrough.? I am restarting the dicyclomine 20mg qid to combat the occasional diarrhea that she says she has every other day. She is having less bloating, but ? if it is also because she had trouble avoiding gluten for Celiac and lactose. ROV 6 weeks. Medications: Resumed dicyclomine 20 mg PO QID 360 tabs 1RF dicyclomine 20 mg PO QID 360 tabs 0RF Coding Level of Care Code Est Pt Level 3 (18768) Diagnoses Chronic idiopathic constipation K59.04 Celiac disease K90.0 GERD (gastroesophageal reflux disease) K21.9
== END 2023-10-23 12:26 | disposition home or self-care (01) ==
PROVIDERS: PCP Internal Medicine; Visit Provider Nurse Practitioner
DX: K90.0 Celiac disease (principal); K21.9 Gastro-esophageal reflux disease without esophagitis
CPT/HCPCS: 99213

== ENCOUNTER → 2023-10-23 11:55 | Outpatient (BNVA) | payer OTHER, SELFPAY | PROVIDERS: PCP Internal Medicine; Visit Provider Nurse Practitioner | DX: K90.0 Celiac disease (principal); K21.9 Gastro-esophageal reflux disease without esophagitis; Z79.899 Other long term (current) drug therapy | CPT/HCPCS: 99212 ==

== ENCOUNTER 2023-10-25 17:27 | Outpatient (REF) | payer OTHER, SELFPAY | END 2023-10-25 17:28 | disposition home or self-care (01) | LOC: HO.HHCLNP 17:27 | PROVIDERS: Visit Provider Internal Medicine | DX: R39.9 Unspecified symptoms and signs involving the genitourinary system (principal) | CPT/HCPCS: 87086; 87088; 87186 ==

== ENCOUNTER 2023-10-29 15:20 | Outpatient (REF) | payer OTHER, SELFPAY ==
--- NOTE | ~2023-10-29 | XR_ITS ---
EXAMINATION: XR LUMBAR SPINE XR BILATERAL RIBS CLINICAL INFORMATION: Rib pain status post fall. Rule out fracture of lower back pain with sciatica. Patient states she fell last night, pain in the area of the right posterior lower rib. Low back pain. COMPARISON: Chest radiograph and chest CT of November 23, 2019. Chest radiograph of November 21, 2022. Lumbar spine radiographs of 06/19/2019. TECHNIQUE: PA view of the chest and 4 views of the bilateral ribs. 3 views of the lumbar spine. FINDINGS: LUMBAR SPINE: Mild dextroscoliosis of the lumbar spine. Surgical clips in the right upper quadrant. Facet arthritis in the lower lumbar spine. Mild multilevel lumbar spondylosis with loss of disc space at L4-L5 and L5-S1. CHEST AND BILATERAL RIBS: Cardiac silhouette is borderline enlarged. There is no gross pneumothorax. Degenerative changes in the thoracic spine. Mild increased bibasilar opacities may represent atelectasis versus an infectious/inflammatory process. Trace left costophrenic angle blunting may represent a trace pleural effusion. No displaced rib fracture appreciated. XR/XR ribs BI 3V IMPRESSION: 1. Mild multilevel lumbar spondylosis with loss of disc space at L4-L5 and L5-S1. 2. Mild increased bibasilar opacities may represent atelectasis versus an infectious/inflammatory process. 3. Trace left costophrenic angle blunting may represent a trace pleural effusion. 4. No displaced rib fracture appreciated.
--- NOTE | ~2023-10-29 | XR_ITS ---
EXAMINATION: XR LUMBAR SPINE XR BILATERAL RIBS CLINICAL INFORMATION: Rib pain status post fall. Rule out fracture of lower back pain with sciatica. Patient states she fell last night, pain in the area of the right posterior lower rib. Low back pain. COMPARISON: Chest radiograph and chest CT of November 23, 2019. Chest radiograph of November 21, 2022. Lumbar spine radiographs of 06/19/2019. TECHNIQUE: PA view of the chest and 4 views of the bilateral ribs. 3 views of the lumbar spine. FINDINGS: LUMBAR SPINE: Mild dextroscoliosis of the lumbar spine. Surgical clips in the right upper quadrant. Facet arthritis in the lower lumbar spine. Mild multilevel lumbar spondylosis with loss of disc space at L4-L5 and L5-S1. CHEST AND BILATERAL RIBS: Cardiac silhouette is borderline enlarged. There is no gross pneumothorax. Degenerative changes in the thoracic spine. Mild increased bibasilar opacities may represent atelectasis versus an infectious/inflammatory process. Trace left costophrenic angle blunting may represent a trace pleural effusion. No displaced rib fracture appreciated. XR/XR lumbar spine 2-3V IMPRESSION: 1. Mild multilevel lumbar spondylosis with loss of disc space at L4-L5 and L5-S1. 2. Mild increased bibasilar opacities may represent atelectasis versus an infectious/inflammatory process. 3. Trace left costophrenic angle blunting may represent a trace pleural effusion. 4. No displaced rib fracture appreciated.
== END 2023-10-29 15:21 | disposition home or self-care (01) ==
LOC: HO.HHCX 15:20
PROVIDERS: Visit Provider Internal Medicine
DX: M54.50 Low back pain, unspecified (principal); R07.81 Pleurodynia; Z91.81 History of falling
CPT/HCPCS: 71110; 72100

== ENCOUNTER 2023-10-30 13:14 | Outpatient (AMB) | payer OTHER, SELFPAY ==
--- NOTE | 2023-10-30 13:58 | MHC.OFFVIS ---
Vital Signs 10/30/23 14:04 Height 5 ft 4 in Weight 143 lb BMI 24.5 BP 112/52 L Blood Pressure Location Lt brachial Position Sitting Pulse 76 Pulse Source Pulse Oximeter Intake Visit Reasons: T2DM Intake Note: Patient presents today for T2DM. Patient reports UTI was prescribed Sulfamexazole and was prescribed Lantus for High blood sugars. Last Diabetic Eye exam: February 2023 Last Podiatry Visit: Does not see a Network Control Operator Random Glucose: 128 mg/dl HgA1C: 9.6% 10/18/2023 Communication Center Operator Required: No Communication Center Operator Name: Refusal Signed Information Interpreted: non-clinical & clinical Accompanied by: Daughter Allergies empagliflozin Adverse Reaction (Intermediate, Verified 10/30/23 16:43) uti Medication List - Last Reconciled 10/30/23 by Maribell Bunch NP acarbose 25 mg PO TID amlodipine 5 mg PO DAILY aspirin (Adult Aspirin Regimen) 81 mg PO DAILY atorvastatin 80 mg PO BEDTIME Bacillus coagulans (Digestive Advantage Probiotics-Prebiotic) 1 tab po qd PO; 30 days blood sugar diagnostic (FreeStyle Lite Strips) 2times a day blood-glucose meter (FreeStyle Lite Meter kit) Twice a day calcium carbonate-vitamin D3 600 mg-10 mcg (400 unit) 1 tab PO BID cholecalciferol (vitamin D3) 50 mcg PO DAILY [diabetic shoes extra depth orthopedic shoes ( 1 pair ) with customize heat molded multi density inner soles ( 3 pair) Dispense 1 Sig: As directed DX: And IDDM /polyneuropathy ( E11 0.42 ); hammertoe foot deformity ( M 20.41, and 20.42 ) pre ulcerative skin lesion ( L 85.1 ) Diagnosis ( E11 0.42 ) type 2 diabetes with polyneuropathy] [diabetic shoes extra depth orthopedic shoes ( 1 pair ) with customize heat molded multi density inner soles ( 3 pair) Dispense 1 Sig: As directed DX: And IDDM /polyneuropathy ( E11 0.42 ); hammertoe foot deformity ( M 20.41, and 20.42 ) pre ulcerative skin lesion ( L 85.1 ) Diagnosis ( E11 0.42 ) type 2 diabetes with polyneuropathy] dicyclomine 20 mg PO QID empagliflozin (Jardiance) 10 mg PO DAILY escitalopram oxalate 20 mg PO DAILY famotidine (Pepcid) 40 mg PO BEDTIME 30 days ferrous sulfate 325 mg PO BID flecainide 50 mg PO Q12H furosemide 20 mg PO DAILY PRN gabapentin 300 mg PO BEDTIME insulin glargine (Lantus Solostar U-100 Insulin) 20 units subcut QAM lancets (FreeStyle Lancets) As directed linaclotide (Linzess) 145 mcg PO QAM meclizine 25 mg PO DAILY PRN metformin 1,000 mg PO BID metoclopramide HCl 5 mg PO QID metoprolol succinate ER 25 mg PO DAILY multivitamin 1 tab PO DAILY oxybutynin chloride 5 mg PO BID rabeprazole (AcipHex) 20 mg PO BID sennosides (senna) 17.2 mg (2 x 8.6 mg) PO BEDTIME PRN simethicone 180 mg PO TID sulfamethoxazole-trimethoprim 800-160 mg 1 tab PO BID trazodone 100 mg PO BEDTIME PRN HPI Comments Details: Patient is 68-year-old female with DM type 2 diagnosed 1989 who presents for management of diabetes. In June of 2020 she was switched to acarbose due to hypoglycemia. Her sugars have been elevated for several months and jardiance was added at her last visit. She was treated twice over the past few weeks for a uti per her daughter with two antibiotics. She denies fever or flank pain. She has some burning with urination and vaginal itching. She was seen yesterday in the ER and started on Lantus 6 units. Her sugars were in the high 300 range and instead of 6 units took 26 units. Per her visiting nurse she did not pay much attention to how she was dialing the insulin and VNA is requesting that her Lantus be given in the am when there is a nurse there to administer. We are unable to download her meter today as the date was not set in the device. Per her daughter her sugar this am was 109 and 300 around lunch. Past medical history: Diabetes type 2, obesity status post gastric bypass surgery in 2005, vitamin-D deficiency, depression, osteopenia, multinodular goiter, low TSH. Micro and macrovascular complications: Retinopathy, neuropathy Diabetes medications: Acarbose 25 mg t.i.d., metformin 1000mg BIDBlood glucose monitoring: Unfortunately, patient did not bring glucometer or log book to follow-up visit Symptoms reported: occasional numbness, tingling, cramping in lower extremities Hypoglycemia: denies Hyperglycemia: denies polyuria, denies polydypsia Ethanol Operations Manager - CDE education: long time ago Network Control Operator: denies Ophthalmology evaluation: to see optho inOct 2022 retinopathy per pt Other specialists: Cardiology She does complain of early satiety and gastric distension [facility] Medical History (Updated 10/30/23 @ 16:59 by Maribell Bunch NP) CKD stage 3 secondary to diabetes Gastroparesis due to secondary diabetes Diastolic dysfunction Bradycardia Encounter for monitoring anti-arrhythmic therapy Essential hypertension Nausea and vomiting Dysphagia Globus sensation Presence of Watchman left atrial appendage closure device Small intestinal bacterial overgrowth Orthostatic hypotension Presence of Watchman left atrial appendage closure device Subdural hematoma Syncope and collapse PAF (paroxysmal atrial fibrillation) Vitamin D deficiency Anxiety Depression Overweight (BMI 25.0-29.9) Dyslipidemia Non-toxic multinodular goiter Diabetic polyneuropathy associated with type 2 diabetes mellitus Diabetic retinopathy associated with type 2 diabetes mellitus Diabetes type 2, controlled Surgical History Hx of breast reduction, elective History of cholecystectomy H/O esophagogastroduodenoscopy Hx of colonoscopy History of gastric bypass Hx of hand surgery Family History Father CVD (cardiovascular disease) Mother Diabetes Social History Household Members: Spouse Alcohol intake: never Patient Tobacco Use Status: Current everyday Tobacco user Review of Systems Const Unobtainable due to mental condition Physical Exam Vital Signs: Last Vital Signs Pulse 76 10/30/23 14:04 BP 112/52 L 10/30/23 14:04 BMI result Body Mass Index 24.5 Neck Neck: Yes no lymphadenopathy Thyroid: Thyroid normal Resp Effort & Inspection: normal respiratory effort Auscultation: clear to auscultation bilaterally GI Other: negative flank or abdominal pain Skin General skin exam: no rashes or lesions noted Results Reviewed Results Reviewed: Laboratory Last Values Glucose (Clinic) 128 mg/dL (60-115) H 10/30/23 14:16 Laboratory Tests 10/18/23 10/18/23 10/18/23 10:30 11:22 11:32 Sodium 134 L Potassium 4.9 BUN 20 H Creatinine 1.16 Hgb A1c (Clinic) 9.6 H Triglycerides 84 Cholesterol 101 LDL Cholesterol, Calc 35 HDL Cholesterol 50 Urine Creatinine 81.36 Urine Microalbumin 9.0 Microalb/Creat Ratio 11.0 Assessment & Plan Assessment & Plan (1) Burning with urination: Code(s): R30.0 - Dysuria Category: Medical Plan: Case discuss with Dr Ramos Patient has been treated with two courses of antibiotics for a possible uti. She is still on Bactrim. There are no cultures in the chart. She is not acutely ill and does not have flank pain. She was asked to see her PCP by the end of the week if her symptoms due not resolve (2) Diabetic retinopathy associated with type 2 diabetes mellitus: Code(s): E11.319 - Type 2 diabetes mellitus with unspecified diabetic retinopathy without macular edema Category: Medical Qualifiers: Diabetic retinopathy severity: with unspecified retinopathy severity Diabetes mellitus macular edema: without macular edema Laterality: bilateral Qualified Code(s): E11.319 - Type 2 diabetes mellitus with unspecified diabetic retinopathy without macular edema Plan: Empagliflozin was stopped. Acarbose was stopped. After review with her VNA [facility] Lantus dosing will be changed to 20 units in the am. VNA will administer the dose for now as they would like to confirm her technique. She will see CDE in one week for training on a free style piedad 3 using a reciever and I will see her to review her blood sugars with her meter and at that time assess whether short acting insulin is needed. She is at a center during the day and is piked up by a bus at 7am and is seen by VNA prior to getting on the bus (3) Dyslipidemia: Code(s): E78.5 - Hyperlipidemia, unspecified Category: Medical Plan: continue statin Medications: Discontinued empagliflozin (Jardiance) Discontinued Reason: No Longer Medically Relevant 10 mg PO DAILY 30 tabs 1RF Coding Level of Care Code Est Pt Level 4 (02108) Diagnoses Burning with urination R30.0 Diabetic retinopathy of both eyes without macular edema associated with type 2 diabetes mellitus, unspecified retinopathy severity E11.319 Diabetic retinopathy severity: with unspecified retinopathy severity Diabetes mellitus macular edema: without macular edema Laterality: bilateral Dyslipidemia E78.5 Time Spent (min) 40 Comment 10 min chart review 30 minutes face to face
[2023-10-30 14:04] VITALS: BP 112/52; PULSE 76; BMI 24.5
[2023-10-30 14:20] LABS: Glucose, Whole Blood 128 mg/dL (60-115)
== END 2023-10-30 15:10 | disposition home or self-care (01) ==
PROVIDERS: PCP Internal Medicine; Visit Provider Nurse Practitioner Adult Health
DX: R30.0 Dysuria (principal); E11.319 Type 2 diabetes mellitus with unspecified diabetic retinopathy without macular edema; E78.5 Hyperlipidemia, unspecified
CPT/HCPCS: 99214

== ENCOUNTER 2023-10-30 13:14 | Outpatient (AMB) | payer OTHER, SELFPAY ==
[2023-10-30 13:18] VITALS: BMI 24.6
--- NOTE | 2023-10-30 13:18 | A.OFFVIS_ITS ---
VS Expanded 10/30/23 13:18 Height 5 ft 4 in Weight 143 lb 4.807 oz BMI 24.6 Intake Visit Reasons: Celiac Allergies No Known Allergies Allergy (Verified 10/23/23 12:09) Nutrition Presentation Details: Pt presents for mnt f/u for celiac disease Pt presents with daughter who helps with meal preg and grocery shopping. Daughter reports reading food labels and working towards gluten free meals , snacks. Dana reports trying new gluten free foods. Daughter reports having appt with printing press operator apprentice related to uncontrolled blood glucose. Daughter has questions regarding diet for glucose control BS Monitoring Most Recent Diabetes Results: Microalb/Creat Ratio 11.0 ug/mg cr (<30) 10/18/23 Cholesterol 101 mg/dL (<200) 10/18/23 HDL Cholesterol 50 mg/dL (>40) 10/18/23 Triglycerides 84 mg/dL (<150) 10/18/23 Creatinine 1.16 mg/dL (0.5-1.4) 10/18/23 Blood Urea Nitrogen 20 mg/dL (9-16) H 10/18/23 Sodium 134 mmol/L (135-145) L 10/18/23 Potassium 4.9 mmol/L (3.3-5.1) 10/18/23 Chloride 107 mmol/L (96-108) 10/18/23 Carbon Dioxide 19 mmol/L (22-29) L 10/18/23 Calcium 9.4 mg/dL (8.4-10.2) 10/18/23 AST 36 U/L (5-31) H 10/18/23 ALT 77 U/L (0-31) H 10/18/23 Total Protein 7.3 g/dL (6.5-8.0) 10/18/23 Albumin 3.8 g/dL (3.5-5.0) 10/18/23 [facility] Medical History (Updated 10/18/23 @ 11:28 by Janel Lozada PA-C) CKD stage 3 secondary to diabetes Gastroparesis due to secondary diabetes Diastolic dysfunction Bradycardia Encounter for monitoring anti-arrhythmic therapy Essential hypertension Nausea and vomiting Dysphagia Globus sensation Presence of Watchman left atrial appendage closure device Small intestinal bacterial overgrowth Orthostatic hypotension Presence of Watchman left atrial appendage closure device Subdural hematoma Syncope and collapse PAF (paroxysmal atrial fibrillation) Vitamin D deficiency Anxiety Depression Overweight (BMI 25.0-29.9) Dyslipidemia Non-toxic multinodular goiter Diabetic polyneuropathy associated with type 2 diabetes mellitus Diabetic retinopathy associated with type 2 diabetes mellitus Diabetes type 2, controlled Surgical History Hx of breast reduction, elective History of cholecystectomy H/O esophagogastroduodenoscopy Hx of colonoscopy History of gastric bypass Hx of hand surgery Family History Father CVD (cardiovascular disease) Mother Diabetes Social History Household Members: Spouse Alcohol intake: never Patient Tobacco Use Status: Current everyday Tobacco user Assessment & Plan Assessment & Plan (1) Celiac disease: Comment: with acquired absence of specified part of digestive tract (hx of cholecystectomy, gastric bypass surgery) Code(s): K90.0 - Celiac disease Category: Medical Plan: Wt: 60 Kg ( 08/2023 ), 62 kg (09/2023), 65 kg (10/2023) Est kcal needs as per MSJ: 1500 (40% carb, 30% protein/fat) Est fluid needs as per 25-30 ml/d: 1800 Est prot per day as per 1 g/kg bw: 60 Recommend fiber intake : 8-10 g per day and gradually increase to 25-28 g per day for women and 35-38 g for men or as tolerated Recommend sodium intake per day : less than 2000 mg Educated patient on: ( R = reviewed V = verbalizes understanding N/R = needs review N/A = not applicable * Gluten free Food sources : R * Lean protein sources of foods: R V NR * Vitamins and minerals: R V N/R * Healthy plate method concept: R * Physical activity: Benefits a precaution: N/R * prevention of cross contamination : R * Discuss food sources of carbs and total carb per meal, Patient Instructions: Continue choosing gluten free foods: naturally gluten free : fruit , vegetables, starchy vegetables, Caution with cross contamination Work on portion sizes of foods with carbohydrates, work at reducing portions to 45-60 g carbs following healthy plate method and snack 0-20 g carb Coding Level of Care Code Nutr Indiv Subseq (12481) Diagnoses Celiac disease K90.0 Time Spent (min) 30
== END 2023-10-30 13:58 | disposition home or self-care (01) ==
PROVIDERS: PCP Internal Medicine; Visit Provider Dietitian, Registered
DX: K90.0 Celiac disease (principal)

== ENCOUNTER → 2023-10-30 13:14 | Outpatient (BNVA) | payer OTHER, SELFPAY | PROVIDERS: PCP Internal Medicine; Visit Provider Dietitian, Registered | DX: K90.0 Celiac disease (principal); R30.0 Dysuria; E11.319 Type 2 diabetes mellitus with unspecified diabetic retinopathy without macular edema; E78.5 Hyperlipidemia, unspecified | CPT/HCPCS: 82947; 97803; 99212 ==

== ENCOUNTER 2023-11-07 13:53 | Outpatient (AMB) | payer OTHER, SELFPAY ==
--- NOTE | 2023-11-07 14:41 | A.OFFVIS_ITS ---
Intake Intake Visit Reasons: Type 2 DM/CONFIRMED Steward/Stewardess Club Car Required: Yes Steward/Stewardess Club Car Language: Certified Personal Finance Counselor [place] [facility] [place]ompanied by: Daughter Allergies empagliflozin Adverse Reaction (Intermediate, Verified 11/07/23 14:11) uti HPI Comprehensive Diabetes Asmnt Most Recent Diabetes Results: Microalb/Creat Ratio 11.0 ug/mg cr (<30) 10/18/23 Cholesterol 101 mg/dL (<200) 10/18/23 HDL Cholesterol 50 mg/dL (>40) 10/18/23 Triglycerides 84 mg/dL (<150) 10/18/23 Creatinine 1.16 mg/dL (0.5-1.4) 10/18/23 Blood Urea Nitrogen 20 mg/dL (9-16) H 10/18/23 Sodium 134 mmol/L (135-145) L 10/18/23 Potassium 4.9 mmol/L (3.3-5.1) 10/18/23 Chloride 107 mmol/L (96-108) 10/18/23 Carbon Dioxide 19 mmol/L (22-29) L 10/18/23 Calcium 9.4 mg/dL (8.4-10.2) 10/18/23 AST 36 U/L (5-31) H 10/18/23 ALT 77 U/L (0-31) H 10/18/23 Total Protein 7.3 g/dL (6.5-8.0) 10/18/23 Albumin 3.8 g/dL (3.5-5.0) 10/18/23 [facility] Medical History (Updated 10/30/23 @ 16:59 by Maribell Bunch NP) CKD stage 3 secondary to diabetes Gastroparesis due to secondary diabetes Diastolic dysfunction Bradycardia Encounter for monitoring anti-arrhythmic therapy Essential hypertension Nausea and vomiting Dysphagia Globus sensation Presence of Watchman left atrial appendage closure device Small intestinal bacterial overgrowth Orthostatic hypotension Presence of Watchman left atrial appendage closure device Subdural hematoma Syncope and collapse PAF (paroxysmal atrial fibrillation) Vitamin D deficiency Anxiety Depression Overweight (BMI 25.0-29.9) Dyslipidemia Non-toxic multinodular goiter Diabetic polyneuropathy associated with type 2 diabetes mellitus Diabetic retinopathy associated with type 2 diabetes mellitus Diabetes type 2, controlled Surgical History Hx of breast reduction, elective History of cholecystectomy H/O esophagogastroduodenoscopy Hx of colonoscopy History of gastric bypass Hx of hand surgery Family History Father CVD (cardiovascular disease) Mother Diabetes Social History Household Members: Spouse Alcohol intake: never Patient Tobacco Use Status: Current everyday Tobacco user Assessment & Plan Assessment & Plan (1) Diabetes type 2, controlled: Code(s): E11.9 - Type 2 diabetes mellitus without complications Plan: Learning objectives: The patient was provided with verbal and written education on the following topics as outlined below. The patient met all learning objectives and was able to verbalize understanding and provide teach back of education topics discussed . The patient was provided with the opportunity to ask questions and all questions were answered. Patient Assessment Assess patient education level/literacy/barriers, patient able to identify foods from carbohydrate list, patient is currently in senior day program Patient questions/concerns patient reports she has type 2 diabetes for greater than 30 years. Was seen in May of 2022 for Diabetes Education but did not make follow-up appointments. Last A1c on 10/18/2023 6.9% Patient is currently on metformin 1000 mg b.i.d. Lantus 20 units daily Patient is waiting for Zunilda 3 sensors to be approved by insurance, when she receives Zunilda sensors she will set up appointment for CGM teaching What is Diabetes? Pathophysiology How the body produces and uses insulin Identify type of DM Risk factors Signs of Diabetes Brief overview of Diabetes Management Monitoring blood sugar Following a meal plan Regular exercise Maintaining a healthy weight Taking medication as needed Members of the care team (PCP, RN, MA, RD, CDE, drawbridge tender) Blood glucose monitoring When/how often to test Target blood sugar ranges fasting BGs 95-121 mg/dL Patient is testing 1-2 times daily Patient had did have 1 episode of hypoglycemia, she will be seeing [facility] after Diabetes Education visit so I did not adjust insulin at this time Introduction to Nutrition Importance of healthy diet in managing DM Diet is personalized to individual preference Review patient?s regular diet/food preferences Who prepares meals/does food shopping/ Dining out?/ Barriers? How diet effects glucose Eating 3 balanced meals a day with small, healthy snacks between meals Review food groups Carbohydrates: What is a carbohydrate/Which food/food groups are considered carbohydrates Effect of carbohydrates on blood glucose Portion sizes Reading food labels Basic carb counting (if applicable per nursing assessment) Plate method Meal planning Recommendations: Follow plate method, consistent carbs and read nutritional labels. Smart Goal: Patient will identify foods in meal plan that contain carbohydrate Educational Materials: The patient was provided with the following written educational materials: Planning Healthy Meals, Target Goals and common [place] foods Handouts in Nauruan Patient Response to instructions: Comprehension of Instructions: Fair Readiness to make changes: Contemplation How confident they feel about making changes: Fair Portions of this note were created using voice recognition software, please excuse any words or phrases that may have been misinterpreted. Patient Instructions: Incluir actividad diaria regular. ADA recomienda 30 minutos de ejercicio 5 d?as a la semana. P?rdida de peso, hable con el PCP o el cardi?logo antes de comenzar un nuevo plan. Mida el nivel de az?car en la cornelio seg?n las indicaciones; Ayuno y comida m?s saul de 2hpp. Observe las tendencias en los resultados. Utilice los resultados y eval?e c?mo los alimentos, la actividad f?henrietta y los medicamentos afectan los resultados de az?car en la cornelio. Lleve el gluc?metro o CGM a la pr?xima visita. Conocer los medicamentos para la diabetes, garcia acci?n, los efectos secundarios, la eficacia, la toxicidad, la dosis prescrita, el momento y la frecuencia de administraci?n apropiados, el efecto de las dosis olvidadas y retrasadas y las instrucciones de almacenamiento, viaje y seguridad. T?cnicas de resoluci?n de problemas para el seguimiento de episodios de hipo/hiperglucemia y tratamientos. Reducir los comportamientos de reducci?n de riesgos, dejar de fumar, ex?menes regulares de ojos, pies y dentales. Coding Level of Care Code Est Pt Level 1 (16233) Diagnoses Diabetes type 2, controlled E11.9
== END 2023-11-07 14:57 | disposition home or self-care (01) ==
PROVIDERS: PCP Internal Medicine; Visit Provider Registered Nurse Diabetes Educator
DX: E11.9 Type 2 diabetes mellitus without complications (principal)

== ENCOUNTER 2023-11-07 13:53 | Outpatient (AMB) | payer OTHER, SELFPAY ==
--- NOTE | 2023-11-07 13:57 | A.OFFVIS_ITS ---
Vital Signs 11/07/23 13:58 Height 5 ft 4 in Weight 145 lb 11.609 oz BMI 25.0 BP 116/44 L Blood Pressure Location Lt brachial Position Sitting Intake Visit Reasons: Type 2 dm/lvm Intake Note: Patient present today to follow up on Type 2 Diabetes Mellitus. Last Diabetic Eye exam: February 2023 Last Podiatry Visit: Does not see a Dredge Master Random Glucose: 242 mg/dl HgA1C: 9.6% 10/18/2023 Addictions Therapist Required: Yes Addictions Therapist Language: Construction Engineer Name: Grace Information Interpreted: non-clinical & clinical Accompanied by: Daughter Allergies empagliflozin Adverse Reaction (Intermediate, Verified 11/07/23 14:11) uti HPI Comments Details: Patient is 68-year-old female with DM type 2 diagnosed 1989 who presents for f/u diabetes visit. She was seen 8 days ago in response to blood sugars in the 300 range for which she had been started on Lantus insulin at 6 units prior to her DM visit which was increased to 20 units at the time of her last visit. She had been started on an sglt-2 inhibitor prior to developing a uti. Her symptoms have resolved. She is off both acarbose and jardiance. Her blood glucose have been well controlled in the am 83-121. she is seen every am by VNA for insulin administration. She has her sugar tested at the day center she goes to and that has been running 104-153. Past medical history: Diabetes type 2, obesity status post gastric bypass surgery in 2005, vitamin-D deficiency, depression, osteopenia, multinodular goiter, low TSH. Micro and macrovascular complications: Retinopathy, neuropathy Symptoms reported: occasional numbness, tingling, no cramping in lower extremities denies uti, candidal vaginitis symptoms Hypoglycemia: denies Hyperglycemia: denies polyuria, denies polydypsia Log Sorter - CDE education: long time ago. Will be scheduled once she receives her piedad 3 glucose sensor. Dredge Master: She desires referral as her nails are thickened. She is no longer wearing open toed shoes. Ophthalmology evaluation: Feb 2023 retinopathy per pt Other specialists: Cardiology [facility] Medical History (Updated 10/30/23 @ 16:59 by Maribell Bunch NP) CKD stage 3 secondary to diabetes Gastroparesis due to secondary diabetes Diastolic dysfunction Bradycardia Encounter for monitoring anti-arrhythmic therapy Essential hypertension Nausea and vomiting Dysphagia Globus sensation Presence of Watchman left atrial appendage closure device Small intestinal bacterial overgrowth Orthostatic hypotension Presence of Watchman left atrial appendage closure device Subdural hematoma Syncope and collapse PAF (paroxysmal atrial fibrillation) Vitamin D deficiency Anxiety Depression Overweight (BMI 25.0-29.9) Dyslipidemia Non-toxic multinodular goiter Diabetic polyneuropathy associated with type 2 diabetes mellitus Diabetic retinopathy associated with type 2 diabetes mellitus Diabetes type 2, controlled Surgical History Hx of breast reduction, elective History of cholecystectomy H/O esophagogastroduodenoscopy Hx of colonoscopy History of gastric bypass Hx of hand surgery Family History Father CVD (cardiovascular disease) Mother Diabetes Social History Household Members: Spouse Alcohol intake: never Patient Tobacco Use Status: Current everyday Tobacco user Physical Exam Vital Signs: Last Vital Signs BP 116/44 L 11/07/23 13:58 BMI result Body Mass Index 25.0 Const General: cooperative and healthy appearing Nutritional Appearance: average body habitus Limitations: no limitations Cardio Rhythm: regular rhythm and abnormal rhythm Heart sounds: S1 normal heart sound present and S2 normal heart sound present Extrem Other: Visual exam of foot performed. No ulcerations or open lesions. No onchomycosis, no callouses. Sensation intact to monofilament exam. Vibratory sensation is normal with 128 Hz tuning fork. Results Reviewed Results Reviewed: Laboratory Last Values Glucose (Clinic) 242 mg/dL (60-115) H 11/07/23 14:09 10/18/23 10/18/23 10/18/23 10:30 11:22 11:32 Sodium 134 L Potassium 4.9 BUN 20 H Creatinine 1.16 Hgb A1c (Clinic) 9.6 H Triglycerides 84 Cholesterol 101 LDL Cholesterol, Calc 35 HDL Cholesterol 50 Urine Creatinine 81.36 Urine Microalbumin 9.0 Microalb/Creat Ratio 11.0 Assessment & Plan Assessment & Plan (1) Diabetes type 2, controlled: Code(s): E11.9 - Type 2 diabetes mellitus without complications Category: Medical Plan: Will reduce insulin by 2 units. Medications: Lantus 18 units Metformin 1000mg bid She will continue to have insulin admin in the am by vna and a second bg at the day center prior to lunch. She was asked to check her sugar in the evening and will call the office once she obtains [employer] 3 reader and supplies. Medications: Discontinued acarbose Discontinued Reason: No Longer Medically Relevant 25 mg PO TID 270 tabs 1RF E11.9 - Type 2 diabetes mellitus without complications Coding Level of Care Code Est Pt Level 4 (98248) Diagnoses Diabetes type 2, controlled E11.9 Time Spent (min) 30 Comment 10 chart review 20 face to face
[2023-11-07 13:58] VITALS: BP 116/44; BMI 25.0
[2023-11-07 14:13] LABS: Glucose, Whole Blood 242 mg/dL (60-115)
== END 2023-11-07 15:12 | disposition home or self-care (01) ==
PROVIDERS: PCP Internal Medicine; Visit Provider Nurse Practitioner Adult Health
DX: E11.9 Type 2 diabetes mellitus without complications (principal)
CPT/HCPCS: 99214

== ENCOUNTER → 2023-11-07 13:53 | Outpatient (BNVA) | payer OTHER, SELFPAY | PROVIDERS: PCP Internal Medicine; Visit Provider Nurse Practitioner Adult Health | DX: E11.43 Type 2 diabetes mellitus with diabetic autonomic (poly)neuropathy (principal); E11.42 Type 2 diabetes mellitus with diabetic polyneuropathy; E11.319 Type 2 diabetes mellitus with unspecified diabetic retinopathy without macular edema; E11.22 Type 2 diabetes mellitus with diabetic chronic kidney disease; I12.9 Hypertensive chronic kidney disease with stage 1 through stage 4 chronic kidney disease, or unspecified chronic kidney disease; N18.9 Chronic kidney disease, unspecified; Z87.891 Personal history of nicotine dependence; Z79.4 Long term (current) use of insulin | CPT/HCPCS: 82947; 99211; 99212 ==

== ENCOUNTER 2023-11-13 13:46 | Outpatient (REF) | payer OTHER, SELFPAY ==
[2023-11-13 14:39] LABS: Anion Gap 12 (12-20); Blood Urea Nitrogen 27 mg/dL (9-16); Calcium 8.6 mg/dL (8.4-10.2); Carbon Dioxide 19 mmol/L (22-29); Chloride 112 mmol/L (96-108); Estimated Glomerular Filt Rate 35; Glucose Random 159 mg/dL (60-115); Potassium 4.6 mmol/L (3.3-5.1); Sodium 138 mmol/L (135-145)
[2023-11-13 14:47] LABS: B Type Natriuretic Peptide 305 pg/mL (<100)
== END 2023-11-13 13:47 | disposition home or self-care (01) ==
LOC: HO.LAB 13:46
PROVIDERS: PCP Internal Medicine; Visit Provider Nurse Practitioner
DX: I51.89 Other ill-defined heart diseases (principal)
CPT/HCPCS: 36415; 80048; 83880

== ENCOUNTER → 2023-11-18 08:31 | Outpatient (REF) | payer OTHER, SELFPAY ==
--- NOTE | ~2023-11-18 | NM_ITS ---
Myocardial perfusion study Indication: Heart disease to evaluate for myocardial ischemia Technique: The patient was brought in for a Lexiscan perfusion study on 11/18/2023. Patient performed low-level exercise and was injected 0.4 mg of Lexiscan intravenously. Within a minute of injection, 25 mCi of sestamibi was given intravenously. Images were obtained using the SPECT gamma camera interlaced with the gating device. Images were obtained in supine position. Resting perfusion study was performed on 11/25/2023. Patient was administered 25 mCi of sestamibi intravenously at rest. Images were then obtained in supine position. Images obtained with and without CT attenuation. Total DLP 77 mGy-cm. Images were processed with the software and compared side to side in short axis, horizontal long axis and vertical long axis views. Findings: The stress perfusion study showed non attenuated images show some thinning of the apical wall of the LV myocardium. Remainder of the LV myocardium is normally perfused. Attenuated corrected images show minimal thinning of the distal anterior and apical wall of the LV myocardium.. The gated study shows normal LV systolic function with calculated LVEF of 69%. LV cavity is normal in size. The gated study shows normal systolic wall thickening and contraction of segments. Resting study shows no change in perfusion pattern compared to stress perfusion study. Gating at rest reveals systolic wall motion with ejection fraction at 63%. The findings are consistent with normal myocardial perfusion. NM/NM cardiolite stress test Impression: 1. Myocardial perfusion imaging study shows normal myocardial perfusion 2. Gated LVEF is 69% 3. Transient ischemic dilatation not present EKG is nondiagnostic for ischemia
--- NOTE | 2023-11-18 08:43 | CA_ITS ---
Acquisition Time: 2023-11-18 08:54:21 Total Exercise Time: 00:02:19 Test Indications: other ill defined heart disease. Medications: Protocol: LEXISCAN Max HR: 071 BPM 46% of Pred: 154 BPM Max BP: 132/060 mmHG Max Work Load: 1.7 METS Pharmacological stress test with Lexiscan injection while walking slowly on treadmill, without anginal symptoms, without arrhythmias, with normotensive response to injection, with nondiagnoisitic EKGs. Aminophylline 75mg IVP given tor everse Lexiscan. Nuclear images pending. Test reviewed with Dr. Anthony. Referred By: Sophia Whitmore Overread By: Sophia Whitmore
== END ==
LOC: HO.CARD 08:31
PROVIDERS: PCP Internal Medicine; Visit Provider Nurse Practitioner
DX: I51.89 Other ill-defined heart diseases (principal)
CPT/HCPCS: 78452; 93017; A9500; J0280; J2785

== ENCOUNTER → 2023-11-18 08:43 | Outpatient (BNV) | payer OTHER, SELFPAY | PROVIDERS: PCP Internal Medicine; Visit Provider Nurse Practitioner | DX: I51.89 Other ill-defined heart diseases (principal) | CPT/HCPCS: 78452; 93016; 93018 ==

== ENCOUNTER 2023-11-19 14:01 | Outpatient (REF) | payer OTHER, SELFPAY ==
[2023-11-19 15:14] LABS: Anion Gap 11 (12-20); Blood Urea Nitrogen 25 mg/dL (9-16); Calcium 8.9 mg/dL (8.4-10.2); Carbon Dioxide 21 mmol/L (22-29); Chloride 106 mmol/L (96-108); Estimated Glomerular Filt Rate 35; Glucose Random 177 mg/dL (60-115); Potassium 4.4 mmol/L (3.3-5.1); Sodium 134 mmol/L (135-145)
[2023-11-19 15:19] LABS: B Type Natriuretic Peptide 175 pg/mL (<100)
== END 2023-11-19 14:02 | disposition home or self-care (01) ==
LOC: HO.LAB 14:01
PROVIDERS: PCP Internal Medicine; Visit Provider Nurse Practitioner
DX: I51.89 Other ill-defined heart diseases (principal)
CPT/HCPCS: 36415; 80048; 83880

== ENCOUNTER 2023-11-25 12:40 | Outpatient (REF) | payer OTHER, SELFPAY ==
[2023-11-25 15:09] LABS: B Type Natriuretic Peptide 239 pg/mL (<100)
[2023-11-25 15:14] LABS: Anion Gap 14 (12-20); Blood Urea Nitrogen 23 mg/dL (9-16); Calcium 8.7 mg/dL (8.4-10.2); Carbon Dioxide 19 mmol/L (22-29); Chloride 108 mmol/L (96-108); Estimated Glomerular Filt Rate 35; Glucose Random 160 mg/dL (60-115); Potassium 5.2 mmol/L (3.3-5.1); Sodium 136 mmol/L (135-145)
== END 2023-11-25 12:41 | disposition home or self-care (01) ==
LOC: HO.LAB 12:40
PROVIDERS: PCP Internal Medicine; Visit Provider Nurse Practitioner
DX: I51.89 Other ill-defined heart diseases (principal)
CPT/HCPCS: 36415; 80048; 83880

== ENCOUNTER 2023-12-04 12:03 | Emergency (ER) | payer OTHER, SELFPAY ==
--- NOTE | 2023-12-04 12:05 | ECG_ITS ---
Test Reason : CHEST PAIN Blood Pressure : / mmHG Vent. Rate : 056 BPM Atrial Rate : 056 BPM P-R Int : 176 ms QRS Dur : 094 ms QT Int : 434 ms P-R-T Axes : 047 050 017 degrees QTc Int : 418 ms Sinus bradycardia Otherwise normal ECG When compared with ECG of 11-OCT-2023 13:05, No significant change was found Referred By: Yary Barragan Electronically Signed By:MANDI SINGLETON MD
[2023-12-04 12:34] VITALS: BP 116/46; PULSE 55; RESP 18; TEMP 36.6; O2SAT 99; BMI 26.5
[2023-12-04 12:34] LABS: MANUAL DIFF FLAG NO
[2023-12-04 12:36] LABS: Basophils Percent Auto 0.2 % (0-2); Eosinophils Absolute Auto 0.1 X10*3/uL (0.0-0.4); Eosinophils Percent Auto 2.9 % (0-4); Hemoglobin 10.7 g/dl (12.0-16.0); Imm Gran Abs Auto 0.02 X10*3/uL (0.00-0.03); Imm Gran Pct Auto 0.4 % (0.0-0.4); Lymphocytes Absolute Auto 0.9 X10*3/uL (1.2-4.9); Mean Corpuscular HGB Conc 31.5 g/dl (31.0-35.0); Mean Corpuscular Hemoglobin 30.7 pg (27.0-33.0); Mean Corpuscular Volume 97.4 fL (80.0-98.0); Mean Platelet Volume 9.4 fL (9.4-12.3); Monocytes Absolute Auto 0.3 X10*3/uL (0.1-1.2); Monocytes Percent Auto 6.7 % (2-11); Neutrophils Absolute Auto 3.1 x10*3/uL (2.0-8.3); Neutrophils Percent Auto 69.8 % (45-73); Platelet Count 215 X10*3/uL (160-400); Red Blood Count 3.49 X10*6/uL (4.20-5.50); Red Cell Distribution Width 13.9 % (11.0-16.0); White Blood Count 4.5 X10*3/uL (4.8-10.8)
--- NOTE | 2023-12-04 12:39 | ED.CHESTPAIN ---
HPI - Chest Pain General Chief Complaint: Chest Pain Stated Complaint: CP Time Seen by Provider: 12/04/23 18:22 Source: patient, family and park interpreter Mode of arrival: ambulatory History of Present Illness ED Provider: Dr Garza HPI narrative: 68-year-old female with history of atrial fibrillation but presents with epigastric and chest discomfort that started on Saturday, not associated with any fever, chills, patient also reports headache but otherwise denies any diarrhea or dysuria. Related Data Home Medications ?Medication ?Instructions ?Recorded ?Confirmed calcium carbonate 600 mg-vitamin 1 tab PO BID 03/09/20 10/30/23 D3 10 mcg (400 unit) tablet ferrous sulfate 325 mg (65 mg 325 mg PO BID 03/09/20 10/30/23 iron) tablet oxybutynin chloride 5 mg tablet 5 mg PO BID 03/09/20 10/30/23 trazodone 100 mg tablet 100 mg PO BEDTIME PRN 03/09/20 10/30/23 aspirin 81 mg tablet,delayed 81 mg PO DAILY 11/21/22 10/30/23 release (Adult Aspirin Regimen) escitalopram oxalate 20 mg tablet 20 mg PO DAILY 05/30/23 10/30/23 meclizine 25 mg tablet 25 mg PO DAILY PRN 06/27/23 10/30/23 multivitamin 1 tab PO DAILY 07/26/23 10/30/23 lancets 28 gauge (FreeStyle #100 ea 10/18/23 10/30/23 Lancets) sulfamethoxazole 800 1 tab PO BID 10/30/23 10/30/23 mg-trimethoprim 160 mg tablet insulin glargine 100 unit/mL (3 18 unit subcut QAM 11/07/23 mL) subcutaneous pen (Lantus Solostar U-100 Insulin) Previous Rx's ?Medication ?Instructions ?Recorded blood-glucose meter (FreeStyle #1 ea 09/29/20 Lite Meter kit) Bacillus coagulans 800 million See Rx Instructions PO .COMPLEX 30 06/09/21 cell tablet (Digestive Advantage days #30 tabs Probiotics-Prebiotic) atorvastatin 80 mg tablet 80 mg PO BEDTIME #30 tabs 10/03/21 blood sugar diagnostic (FreeStyle #200 ea 10/04/21 Lite Strips) gabapentin 300 mg capsule 300 mg PO BEDTIME #90 caps 12/19/21 cholecalciferol (vitamin D3) 50 50 mcg PO DAILY #90 caps 01/08/22 mcg (2,000 unit) capsule diabetic shoes #1 ea 04/05/22 sennosides 8.6 mg tablet (senna) 17.2 mg (2 x 8.6 mg) PO BEDTIME 08/09/22 PRN for constipation #60 tabs diabetic shoes #1 ea 12/21/22 amlodipine 5 mg tablet 5 mg PO DAILY #90 tabs 05/06/23 famotidine 40 mg tablet (Pepcid) 40 mg PO BEDTIME 30 days #30 tabs 05/30/23 metoclopramide HCl 5 mg tablet 5 mg PO QID #120 tabs 05/30/23 simethicone 180 mg capsule 180 mg PO TID #90 caps 05/30/23 flecainide 50 mg tablet 50 mg PO Q12H #180 tabs 08/26/23 metformin 1,000 mg tablet 1,000 mg PO BID #180 tabs 09/04/23 metoprolol succinate 25 mg 25 mg PO DAILY #90 tabs 09/23/23 tablet,extended release 24 hr dicyclomine 20 mg tablet 20 mg PO QID #360 tabs 10/23/23 linaclotide 145 mcg capsule 145 mcg PO QAM #30 caps 10/25/23 (Linzess) blood-glucose meter,continuous #1 ea 11/05/23 (FreeStyle Zunilda 3 [place]) blood-glucose sensor (FreeStyle #2 ea 11/05/23 Zunilda 3 Sensor device) furosemide 20 mg tablet 20 mg PO DAILY PRN weight gain 30 11/20/23 days #30 tabs rabeprazole 20 mg tablet,delayed 20 mg PO BID #180 tabs 11/22/23 release omeprazole 40 mg capsule,delayed 40 mg PO DAILY #30 caps 12/04/23 release Allergies Allergy/AdvReac Type Severity Reaction Status Date / Time empagliflozin AdvReac Intermediate uti Verified 12/04/23 12:38 Review of Systems Review of Systems: Pertinent positives and negatives as stated in [facility] Past Medical History Source: nursing notes reviewed Medical History CKD stage 3 secondary to diabetes Gastroparesis due to secondary diabetes Diastolic dysfunction Bradycardia Encounter for monitoring anti-arrhythmic therapy Essential hypertension Nausea and vomiting Dysphagia Globus sensation Presence of Watchman left atrial appendage closure device Small intestinal bacterial overgrowth Orthostatic hypotension Presence of Watchman left atrial appendage closure device Subdural hematoma Syncope and collapse PAF (paroxysmal atrial fibrillation) Vitamin D deficiency Anxiety Depression Overweight (BMI 25.0-29.9) Dyslipidemia Non-toxic multinodular goiter Diabetic polyneuropathy associated with type 2 diabetes mellitus Diabetic retinopathy associated with type 2 diabetes mellitus Diabetes type 2, controlled Surgical History Hx of breast reduction, elective History of cholecystectomy H/O esophagogastroduodenoscopy Hx of colonoscopy History of gastric bypass Hx of hand surgery Family History Family History Father CVD (cardiovascular disease) Mother Diabetes Social History Social History Household Members: Spouse Alcohol intake: never Patient Tobacco Use Status: Current everyday Tobacco user Advance Directives: No Advance Directives Information Provided: No Do you have a plan to hurt others: No Plan Physical Exam Vital Signs: Vital Signs: Last Vital Signs Temp 98 F 12/04/23 18:44 Pulse 55 12/04/23 18:44 Resp 12 12/04/23 18:44 BP 158/52 H 12/04/23 18:44 Pulse Ox 100 12/04/23 18:44 O2 Del Method Room Air 12/04/23 18:44 BMI result Body Mass Index 26.5 VITAL SIGNS: Reviewed. GENERAL: Well developed, well nourished, in no acute distress. HEAD: Normocephalic/atraumatic EYES: PERRLA, EOMI EARS: Ext canals without abnormality NOSE: Nares patent bilateral OROPHARYNX: no oral lesions noted, posterior pharynx clear NECK: Supple, no adenopathy LUNGS: Normal breath sounds. No adventitious sounds or accessory muscle use. SpO2<100> CARDIOVASCULAR: Regular rate and rhythm without noted murmurs, no JVD or lower extremity edema. ABDOMEN: Soft, non-tender, non-distended with bowel sounds. MUSCULOSKELETAL: No tenderness, deformities, or effusions noted on gross inspection. EXTREMITIES: No cyanosis, clubbing or edema. SKIN: Inspection of the skin reveals no rashes NEUROLOGIC: Alert and oriented x 4. Strength and sensation to light touch were grossly intact x 4. Course Course Course Narrative: This is an RME: Additional HPI, ROS, PE not included below will be deferred to primary provider. RME assessment and note performed by: Yary Barragan PA-C This is a 68-year-old Togolese-speaking female, with a history of CKD, hypertension, GERD, PAF, who presents emergency department complaints of chest pain which started on Saturday which occurred while watching TV. She endorses some shortness of breath and dizziness. Standing makes the pain worsened dizziness worse. Plan: EKG, labs, chest x-ray, further ER evaluation needed. Medical Decision Making Medical Decision Making MDM Narrative: 68-year-old female with history and clinical presentation, DDX: Viral illness, gastritis/acid reflux, low clinical suspicion for pneumonia or ACS. EKG: Sinus bradycardia, HR-56, no STEMI, TN/QRS/QTC are within normal limits. I reviewed and interpreted all investigations and hematologic indices demonstrate a chronically stable leukopenia, patient does have a normocytic anemia and no thrombocytopenia. Chemistry indices do not demonstrate an AMAURI, there is a noted metabolic acidosis of unclear etiology though high sensitivity troponin is detectable in the absence of EKG changes and the atypical chest pain that patient presents with not felt to be indicative of ACS. I also reviewed patient's recent Lexiscan. Viral testing is negative. Patient has no hypoxia or fever so chest x-ray not pursued. My interpretation is patient is likely suffering from GERD/acid reflux and will discharge on a short course of PPIs and strongly encouraged patient to follow-up with your primary care doctor for re-evaluation and further outpatient management. She was also encouraged to return should there be any acute worsening or new symptoms. Differential Diagnosis Differential Diagnoses: The differential diagnosis associated with the presentation includes Please see the discussion above Admission/Observation Consideration of admission/observation: Escalation of care including admission/observation considered Please see the discussion above Lab Data MDM Lab Attestation statement: I reviewed the patient's lab results. Please see the discussion above 12/04/23 12:27 12/04/23 12:27 Labs: Lab Results 12/04/23 Range/Units 12:27 WBC 4.5 L (4.8-10.8) X10*3/uL RBC 3.49 L (4.20-5.50) X10*6/uL Hgb 10.7 L (12.0-16.0) g/dl Hct 34.0 L (37.0-47.0) % MCV 97.4 (80.0-98.0) fL MCH 30.7 (27.0-33.0) pg MCHC 31.5 (31.0-35.0) g/dl RDW 13.9 (11.0-16.0) % Plt Count 215 D (160-400) X10*3/uL MPV 9.4 (9.4-12.3) fL Immature Gran % (Auto) 0.4 (0.0-0.4) % Neut % (Auto) 69.8 (45-73) % Lymph % (Auto) 20.0 (20-40) % Cotton % (Auto) 6.7 (2-11) % Eos % (Auto) 2.9 (0-4) % Baso % (Auto) 0.2 (0-2) % Lymph # (Auto) 0.9 L (1.2-4.9) X10*3/uL Cotton # (Auto) 0.3 (0.1-1.2) X10*3/uL Eos # (Auto) 0.1 (0.0-0.4) X10*3/uL Baso # (Auto) 0.0 (0.0-0.2) X10*3/uL Abs Immat Gran (auto) 0.02 (0.00-0.03) X10*3/uL Absolute Neuts (auto) 3.1 (2.0-8.3) x10*3/uL Absolute Nucleated RBC 0.000 (0.0-0.012) X10*3/uL Nucleated RBC % (auto) 0.0 (0.0-0.2) /100WBC Sodium 136 (135-145) mmol/L Potassium 4.7 (3.3-5.1) mmol/L Chloride 113 H (96-108) mmol/L Carbon Dioxide 16 L (22-29) mmol/L Anion Gap 12 (12-20) BUN 25 H (9-16) mg/dL Creatinine 1.31 (0.5-1.4) mg/dL Estim Creat Clear Calc 39.0 Estimated GFR 41 Random Glucose 162 H (60-115) mg/dL Calcium 8.3 L (8.4-10.2) mg/dL Magnesium 2.1 (1.6-2.6) mg/dL Total Bilirubin 0.4 (0.0-1.0) mg/dL Direct Bilirubin 0.1 (0.0-0.5) mg/dL AST 46 H (5-31) U/L ALT 62 H (0-31) U/L Alkaline Phosphatase 67 (39-117) U/L Troponin I High Sens 7.2 (<3.5-17.0) ng/L Total Protein 7.1 (6.5-8.0) g/dL Albumin 3.8 (3.5-5.0) g/dL Lipase 24 (8-78) U/L Influenza Type A (PCR) NEGATIVE (Negative) Influenza Type B (PCR) NEGATIVE (Negative) RSV RNA Qual (PCR) NEGATIVE (Negative) SARS-CoV-2 RNA (RT-PCR) NEGATIVE (Negative) Independent Interpretation I performed an independent interpretation of an: EKG Interpretation: Please see the discussion above Radiology Impression Discussion of test interpretation with radiology: I have reviewed the radiologist's reading. Radiologist Impression: Please see the discussion above External Record Review External record reviewed: Outpatient record, Prior outpatient labs and Prior outpatient radiology Chronic Conditions Patient?s care impacted by: Diabetes and Hypertension Critical Care Time Critical Care Time Critical Care Time: Yes Total Critical Care Time: 30 Attestation: I personally attest to this time spent taking care of the patient. Discharge Plan Discharge Clinical Impression: Atypical chest pain, GERD (gastroesophageal reflux disease) Patient Disposition: Home, Self-Care Instructions: Diet for Stomach Ulcers and Gastritis (ED), Gastroesophageal Reflux Disease (ED) Additional Instructions: Resume all home medications as prescribed. You have been given a prescription for and acid control medication. Please follow-up with your primary care doctor for re-evaluation further outpatient management. Return to the ER for any worsening of your symptoms. Prescriptions: New omeprazole 40 mg capsule,delayed release(DR/EC) 40 mg PO DAILY Qty: 30 0RF No Action (DME) blood-glucose meter [FreeStyle Lite Meter] Kit See Rx Instructions miscellaneous .MEDSUPPLY Qty: 1 0RF Rx Instructions: Twice a day Digestive Advantage Probio-Pre 800 million cell tablet See Rx Instructions PO .COMPLEX 30 Days Qty: 30 3RF Rx Instructions: 1 tab po qd PO; atorvastatin 80 mg tablet 80 mg PO BEDTIME Qty: 30 11RF (DME) FreeStyle Lite Strips Strip See Rx Instructions .MEDSUPPLY Qty: 200 10RF Rx Instructions: 2times a day gabapentin 300 mg capsule 300 mg PO BEDTIME Qty: 90 1RF cholecalciferol (vitamin D3) 50 mcg (2,000 unit) capsule 50 mcg PO DAILY Qty: 90 4RF (DME) diabetic shoes See Rx Instructions .ROUTE .MEDSUPPLY Qty: 1 0RF Rx Instructions: extra depth orthopedic shoes ( 1 pair ) with customize heat molded multi density inner soles ( 3 pair) Dispense 1 Sig: As directed DX: And IDDM /polyneuropathy ( E11 0.42 ); hammertoe foot deformity ( M 20.41, and 20.42 ) pre ulcerative skin lesion ( L 85.1 ) Diagnosis ( E11 0.42 ) type 2 diabetes with polyneuropathy sennosides [senna] 8.6 mg tablet 17.2 mg PO BEDTIME PRN (Reason: for constipation) Qty: 60 0RF Hold Instructions: Doctor's Order aspirin [Adult Aspirin Regimen] 81 mg tablet,delayed release (DR/EC) 81 mg PO DAILY amlodipine 5 mg tablet 5 mg PO DAILY Qty: 90 3RF flecainide 50 mg tablet 50 mg PO Q12H Qty: 180 3RF metformin 1,000 mg tablet 1,000 mg PO BID Qty: 180 1RF metoprolol succinate 25 mg tablet extended release 24 hr 25 mg PO DAILY Qty: 90 3RF Linzess 145 mcg capsule 145 mcg PO QAM Qty: 30 6RF (DME) FreeStyle Zunilda 3 [place] Misc See Rx Instructions .Route Qty: 1 0RF Rx Instructions: As directed (DME) FreeStyle Zunilda 3 Sensor Device See Rx Instructions .Route Qty: 2 11RF Rx Instructions: every 14 days furosemide 20 mg tablet 20 mg PO DAILY PRN (Reason: weight gain) 30 Days Qty: 30 1RF Rx Instructions: take as needed for weight gain of 3 lbs over night until at baseline weight. rabeprazole 20 mg tablet,delayed release (DR/EC) 20 mg PO BID Qty: 180 2RF ferrous sulfate 325 mg (65 mg iron) tablet 325 mg PO BID calcium carbonate-vitamin D3 600 mg(1,500mg) -400 unit tablet 1 tab PO BID trazodone 100 mg tablet 100 mg PO BEDTIME PRN oxybutynin chloride 5 mg tablet 5 mg PO BID (DME) diabetic shoes See Rx Instructions .ROUTE .MEDSUPPLY Qty: 1 0RF Rx Instructions: extra depth orthopedic shoes ( 1 pair ) with customize heat molded multi density inner soles ( 3 pair) Dispense 1 Sig: As directed DX: And IDDM /polyneuropathy ( E11 0.42 ); hammertoe foot deformity ( M 20.41, and 20.42 ) pre ulcerative skin lesion ( L 85.1 ) Diagnosis ( E11 0.42 ) type 2 diabetes with polyneuropathy sulfamethoxazole-trimethoprim 800-160 mg tablet 1 tab PO BID escitalopram oxalate 20 mg tablet 20 mg PO DAILY famotidine [Pepcid] 40 mg tablet 40 mg PO BEDTIME 30 Days Qty: 30 6RF simethicone 180 mg capsule 180 mg PO TID Qty: 90 6RF metoclopramide HCl 5 mg tablet 5 mg PO QID Qty: 120 6RF meclizine 25 mg tablet 25 mg PO DAILY PRN multivitamin Tablet 1 tab PO DAILY dicyclomine 20 mg tablet 20 mg PO QID Qty: 360 1RF Hold Instructions: Doctor's Order (DME) lancets [FreeStyle Lancets] 28 gauge misc See Rx Instructions .ROUTE .MEDSUPPLY Qty: 100 Rx Instructions: As directed insulin glargine [Lantus Solostar U-100 Insulin] 100 unit/mL (3 mL) insulin pen 18 unit subcut QAM Referrals: Cherrie Gómez MD [Primary Care Provider] - Print Language: Togolese
[2023-12-04 12:56] LABS: Alanine Aminotransferase 62 U/L (0-31); Albumin Level 3.8 g/dL (3.5-5.0); Alkaline Phosphatase 67 U/L (39-117); Anion Gap 12 (12-20); Aspartate Amino Transferase 46 U/L (5-31); Bilirubin Direct 0.1 mg/dL (0.0-0.5); Bilirubin Total 0.4 mg/dL (0.0-1.0); Blood Urea Nitrogen 25 mg/dL (9-16); Calcium 8.3 mg/dL (8.4-10.2); Carbon Dioxide 16 mmol/L (22-29); Chloride 113 mmol/L (96-108); Estimated Glomerular Filt Rate 41; Glucose Random 162 mg/dL (60-115); Lipase 24 U/L (8-78); Magnesium 2.1 mg/dL (1.6-2.6); Potassium 4.7 mmol/L (3.3-5.1); Sodium 136 mmol/L (135-145); Total Protein 7.1 g/dL (6.5-8.0)
[2023-12-04 13:04] LABS: Troponin-I High Sensitivity 7.2 ng/L (<3.5-17.0)
[2023-12-04 13:12] LABS: Influenza A PCR NEGATIVE (Negative); Influenza B PCR NEGATIVE (Negative); Resp Syncy Virus RNA Qual PCR NEGATIVE (Negative); SARS COV2 PCR INHOUSE NEGATIVE (Negative)
[2023-12-04 18:44] VITALS: BP 158/52; PULSE 55; RESP 12; TEMP 36.6; O2SAT 100
[2023-12-04 20:22] VITALS: BP 157/59; PULSE 48; RESP 12; TEMP 36.1; O2SAT 97
[2023-12-04] MEDS: Magnesium Hydrox/Alum Hydrox 30 ML ORAL.SUSP PO (20:34)
[2023-12-04] MEDS: Lidocaine HCl Viscous 2 % 15 ML SOLUTION 10 ML MUCOUS MEM (20:34)
[2023-12-04 20:38] VITALS: BP 157/59; PULSE 48; RESP 12; TEMP 36.1; O2SAT 97
== END 2023-12-04 20:38 | disposition home or self-care (01) ==
PROVIDERS: Physician Assistant Medical; Emergency Provider Student in an Organized Health Care Education/Training Program; PCP Internal Medicine
DX: R07.89 Other chest pain (principal); K21.9 Gastro-esophageal reflux disease without esophagitis; R51.9 Headache, unspecified; R00.1 Bradycardia, unspecified; Z03.818 Encounter for observation for suspected exposure to other biological agents ruled out; E11.22 Type 2 diabetes mellitus with diabetic chronic kidney disease; I12.9 Hypertensive chronic kidney disease with stage 1 through stage 4 chronic kidney disease, or unspecified chronic kidney disease; N18.30 Chronic kidney disease, stage 3 unspecified; I48.0 Paroxysmal atrial fibrillation; F17.200 Nicotine dependence, unspecified, uncomplicated; Z79.4 Long term (current) use of insulin; Z79.899 Other long term (current) drug therapy; Z79.82 Long term (current) use of aspirin; Z79.02 Long term (current) use of antithrombotics/antiplatelets; Z79.84 Long term (current) use of oral hypoglycemic drugs
CPT/HCPCS: 0241U; 80048; 80076; 83690; 83735; 84484; 85025; 93005; 99283; 99284

== ENCOUNTER → 2023-12-04 12:05 | Outpatient (BNV) | payer OTHER, SELFPAY | PROVIDERS: Emergency Provider Student in an Organized Health Care Education/Training Program; PCP Internal Medicine; Visit Provider Internal Medicine Cardiovascular Disease | DX: R07.9 Chest pain, unspecified (principal) | CPT/HCPCS: 93010 ==

== ENCOUNTER 2023-12-06 12:40 | Outpatient (AMB) | payer OTHER, SELFPAY ==
--- NOTE | 2023-12-06 12:47 | MHC.OFFVIS ---
Vital Signs 12/06/23 12:52 Height 5 ft 3 in Weight 150 lb BMI 26.6 BP 135/62 Blood Pressure Location Lt brachial Position Sitting Pulse 45 L Intake Visit Reasons: 6 weeks IBS, CIC, Gerd Intake Note: Patient 6 weeks for IBS, CIC and GERD. Patient cc: abdominal bloating, acid reflex with burning sensation, constipation and some swallowing difficulty. 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: No Accompanied by: Family/Other Allergies empagliflozin Adverse Reaction (Intermediate, Verified 12/06/23 12:46) uti HPI HPI 6 weeks IBS, CIC, Gerd: Details: Assessment & Plan (1) Chronic idiopathic constipation: Code(s): K59.04 - Chronic idiopathic constipation Category: Medical (2) Celiac disease: Comment: with acquired absence of specified part of digestive tract (hx of cholecystectomy, gastric bypass surgery) Code(s): K90.0 - Celiac disease Category: Medical (3) GERD (gastroesophageal reflux disease): Code(s): K21.9 - Gastro-esophageal reflux disease without esophagitis Category: Medical Plan Slovak #dtr translates per pt request She feels that the Linzess 145 micro g is sufficient for her constipation. However she says she is having diarrhea also about every other day. I think maybe we should try adding the dicyclomine back in. She is taking rabeprazole 20mg twice a day, Linzess 145 micro g, metoclopramide 4 times a day, at 5 mg, simethicone, and famotidine for breakthrough.? I am restarting the dicyclomine 20mg qid to combat the occasional diarrhea that she says she has every other day. She is having less bloating, but ? if it is also because she had trouble avoiding gluten for Celiac and lactose. ROV 6 weeks. Medications: Resumed dicyclomine 20 mg PO QID 360 tabs 1RF dicyclomine 20 mg PO QID 360 tabs 0RF TODAY'S VISIT Slovak #grddtr translates per pt request She had another bad attack of CP, but she now is refusing to follow her Celiac diet and avoid lactose. She also will frequently forget her mid day Reglan doses. Given this, her stooling is variable between CIC and diarrhea - most likely r/t diet. NO real help with bentyl. She continues on her rabeprazole twice a day and Linzess 145 micro g. ROV 8 weeks. [facility] Medical History CKD stage 3 secondary to diabetes Gastroparesis due to secondary diabetes Diastolic dysfunction Bradycardia Burning with urination Encounter for monitoring anti-arrhythmic therapy Essential hypertension Abdominal bloating Small intestinal bacterial overgrowth Nausea and vomiting Dysphagia Periumbilical abdominal pain Globus sensation Orthostatic hypotension Presence of Watchman left atrial appendage closure device Subdural hematoma Syncope and collapse PAF (paroxysmal atrial fibrillation) Vitamin D deficiency Anxiety Depression Overweight (BMI 25.0-29.9) Dyslipidemia Non-toxic multinodular goiter Diabetic polyneuropathy associated with type 2 diabetes mellitus Diabetic retinopathy associated with type 2 diabetes mellitus Diabetes type 2, controlled Surgical History Hx of breast reduction, elective History of cholecystectomy H/O esophagogastroduodenoscopy Hx of colonoscopy History of gastric bypass History of gastric bypass Hx of hand surgery Family History Father CVD (cardiovascular disease) Mother Diabetes Social History Household Members: Spouse Alcohol intake: never Patient Tobacco Use Status: Former Tobacco user Tobacco use type: Cigarette Review of Systems Const Denies fatigue, Denies fever(s), Denies night sweats, Denies poor appetite and Denies weight loss ENT Reports Normal hearing present, Denies dental pain, Denies dysphagia, Denies hearing loss, Denies mouth pain, Denies odynophagia, Denies throat swelling, Denies tongue swelling and Reports other (Dentition adequate) Card Reports chest pain Resp Reports no additional complaints GI Details: Denies abdominal pain, Denies melena, Reports bloating, Denies hematochezia, Reports constipation, Denies GI cramping, Denies dysphagia, Denies excessive flatus, Denies early satiety, Reports heartburn, Reports diarrhea, Denies nausea, Denies odynophagia, Denies vomiting and Denies hematemesis Skin/Breast Denies pruritus, Denies lesions, Denies rash and Denies jaundice Neuro Reports Normal hearing present and Denies Abnormal speech present Endo Denies fatigue Aller/Immun Denies throat swelling and Denies tongue swelling Physical Exam Vital Signs: Last Vital Signs Pulse 45 L 12/06/23 12:52 BP 135/62 12/06/23 12:52 BMI result Body Mass Index 26.6 Const General: cooperative, no acute distress, well developed and well groomed Nutritional Appearance: average body habitus and well nourished Orientation/consciousness: oriented to person, oriented to place and oriented to time Limitations: language barrier HEENT Head: Yes normocephalic and Yes atraumatic Eyes General: appearance normal, both eyes and all related structures Pupils: Equal, round and reactive pupils present Neck Neck: Yes normal visual inspection and Yes no lymphadenopathy Thyroid: Thyroid normal Resp Effort & Inspection: normal respiratory effort and able to speak in complete sentences Auscultation: clear to auscultation bilaterally Cardio Rate: regular rate Rhythm: regular rhythm Heart sounds: Normal, physiologic split S2 sound present Peripheral pulses: radial pulses present and posterior tibial pulses present GI Inspection: No distended and No Abdominal panniculus present Palpation (GI): Soft to palpation, nontender, no guarding, not rigid and No hepatosplenomegaly present Percussion: Yes normal to percussion Auscultation: normal bowel sounds Rectal Exam - Female: deferred Skin General skin exam: no rashes or lesions noted, turgor normal, skin not dry, no jaundice, No spider nevi and no striae Rashes: no rashes Nails: normal Neuro General: oriented to person, oriented to place and oriented to time Cranial nerves: Yes Equal, round and reactive pupils present and Yes Normal hearing present Speech: No Abnormal speech present Extrem General: Yes normal to inspection, No clubbing, No cyanosis and No edema Psych Appearance: grossly normal and well kempt Mental Status: mental status grossly normal Speech and movement: Normal speech and movement present Affect: normal affect Attitude: cooperative Thought process: Normal thought process present and not confabulating Thought content: Normal thought content present Insight: Limited insight present (Psych) Judgement: Limited judgement present (Psych) Assessment & Plan Assessment & Plan (1) Chronic idiopathic constipation: Code(s): K59.04 - Chronic idiopathic constipation Category: Medical (2) GERD (gastroesophageal reflux disease): Code(s): K21.9 - Gastro-esophageal reflux disease without esophagitis Category: Medical (3) Celiac disease: Comment: with acquired absence of specified part of digestive tract (hx of cholecystectomy, gastric bypass surgery) Code(s): K90.0 - Celiac disease Category: Medical Plan Slovak #grddtr translates per pt request She had another bad attack of CP, but she now is refusing to follow her Celiac diet and avoid lactose. She also will frequently forget her mid day Reglan doses. I think for breakthrough GERD and for this situation she should try [id number] Mylanta being aware that drinking too much of it can give her diarrhea. Given this, her stooling is variable between CIC and diarrhea - most likely r/t diet. NO real help with bentyl. She continues on her rabeprazole twice a day and Linzess 145 micro g. ROV 8 weeks. Medications: New alum-mag hydroxide-simeth 400-400-40 mg/5 mL (Mylanta Maximum Strength) 5 mL PO QID PRN 3,000 mL 3RF chest pain K21.9 - Gastro-esophageal reflux disease without esophagitis alum-mag hydroxide-simeth 400-400-40 mg/5 mL (Mylanta Maximum Strength) 10 mL PO QID PRN 3,000 mL 3RF chest pain K21.9 - Gastro-esophageal reflux disease without esophagitis Refilled famotidine (Pepcid) 40 mg PO BEDTIME 30 tabs 6RF 30 days K21.9 - Gastro-esophageal reflux disease without esophagitis metoclopramide HCl 5 mg PO QID 120 tabs 6RF R11.2 - Nausea with vomiting, unspecified, E11.42 - Type 2 diabetes mellitus with diabetic polyneuropathy Discontinued omeprazole Discontinued Reason: Doctor's Order 40 mg PO DAILY 30 caps 0RF linaclotide Discontinued Reason: No Longer Medically Relevant 290 mcg PO QAM 30 days 30 caps 3RF Coding Level of Care Code Est Pt Level 3 (31269) Diagnoses Chronic idiopathic constipation K59.04 GERD (gastroesophageal reflux disease) K21.9 Celiac disease K90.0
[2023-12-06 12:52] VITALS: BP 135/62; PULSE 45; BMI 26.6
== END 2023-12-06 13:50 | disposition home or self-care (01) ==
PROVIDERS: PCP Internal Medicine; Visit Provider Nurse Practitioner
DX: K59.04 Chronic idiopathic constipation (principal); K21.9 Gastro-esophageal reflux disease without esophagitis; K90.0 Celiac disease
CPT/HCPCS: 99213

== ENCOUNTER → 2023-12-06 12:40 | Outpatient (BNVA) | payer OTHER, SELFPAY | PROVIDERS: PCP Internal Medicine; Visit Provider Nurse Practitioner | DX: K58.1 Irritable bowel syndrome with constipation (principal); K21.9 Gastro-esophageal reflux disease without esophagitis; K90.0 Celiac disease; R13.10 Dysphagia, unspecified | CPT/HCPCS: 99212 ==

== ENCOUNTER 2024-01-01 11:23 | Day surgery (SDC) | payer OTHER, SELFPAY ==
--- NOTE | 2023-12-31 10:49 | P.CONAN_ITS ---
Documented by User: Queenie Roque NP 12/31/23 10:54 HPI - Anesthesia Eval Consult details Narrative: 68yo F for Pacemaker Insertion, Dual Follows [facility] [place] Cardiology afib s/p watchman, no OAC severe diastlic dysfunction PMFSH Active Problems Active Problems: All Active Problems Celiac disease (Acute) Chronic idiopathic constipation (Acute) Hypertension (Acute) Hypertension (Acute) GERD (gastroesophageal reflux disease) (Acute) CKD stage 3 secondary to diabetes (Acute) Gastroparesis due to secondary diabetes (Acute) Diastolic dysfunction (Acute) Bradycardia (Acute) Orthostatic hypotension (Acute) Presence of Watchman left atrial appendage closure device (Acute) PAF (paroxysmal atrial fibrillation) (Acute) Vitamin D deficiency (Acute) Anxiety (Acute) Depression (Acute) Dyslipidemia (Acute) Non-toxic multinodular goiter (Acute) Diabetic polyneuropathy associated with type 2 diabetes mellitus (Acute) Diabetic retinopathy associated with type 2 diabetes mellitus (Acute) Diabetes type 2, controlled (Acute) Past Medical History Medical History CKD stage 3 secondary to diabetes Gastroparesis due to secondary diabetes Diastolic dysfunction Bradycardia Burning with urination Encounter for monitoring anti-arrhythmic therapy Essential hypertension Abdominal bloating Small intestinal bacterial overgrowth Nausea and vomiting Dysphagia Periumbilical abdominal pain Globus sensation Orthostatic hypotension Presence of Watchman left atrial appendage closure device Subdural hematoma Syncope and collapse PAF (paroxysmal atrial fibrillation) Vitamin D deficiency Anxiety Depression Overweight (BMI 25.0-29.9) Dyslipidemia Non-toxic multinodular goiter Diabetic polyneuropathy associated with type 2 diabetes mellitus Diabetic retinopathy associated with type 2 diabetes mellitus Diabetes type 2, controlled Family History Family History Father CVD (cardiovascular disease) Mother Diabetes Surgical History Surgical History Hx of breast reduction, elective History of cholecystectomy H/O esophagogastroduodenoscopy Hx of colonoscopy History of gastric bypass History of gastric bypass Hx of hand surgery Social History Social History Household Members: Spouse Alcohol intake: never Patient Tobacco Use Status: Former Tobacco user Tobacco use type: Cigarette Patient Interested in Nicotine Replacement: No Use of substances other than those prescribed or required for medical reasons: No Are you DNR?: No Advance Directives: No Advance Directives Information Provided: Yes Meds Allergies Allergy/AdvReac Type Severity Reaction Status Date / Time empagliflozin AdvReac Intermediate uti Verified 12/06/23 12:46 Home Medications ?Medication ?Instructions ?Recorded ?Confirmed ?Last Taken ?Type calcium carbonate 600 mg-vitamin 1 tab PO BID 03/09/20 01/01/24 Unknown History D3 10 mcg (400 unit) tablet ferrous sulfate 325 mg (65 mg 325 mg PO BID 03/09/20 01/01/24 Unknown History iron) tablet oxybutynin chloride 5 mg tablet 5 mg PO BID 03/09/20 01/01/24 Unknown History trazodone 100 mg tablet 100 mg PO BEDTIME PRN Sleep 03/09/20 01/01/24 Unknown History aspirin 81 mg tablet,delayed 81 mg PO DAILY 11/21/22 01/01/24 Unknown History release (Adult Aspirin Regimen) escitalopram oxalate 20 mg tablet 20 mg PO DAILY 05/30/23 01/01/24 Unknown History meclizine 25 mg tablet 25 mg PO DAILY PRN Dizziness 06/27/23 01/01/24 Unknown History multivitamin 1 tab PO DAILY 07/26/23 01/01/24 Unknown History lancets 28 gauge (FreeStyle #100 ea 10/18/23 01/01/24 Unknown History Lancets) insulin glargine 100 unit/mL (3 18 unit subcut QAM 11/07/23 01/01/24 Unknown Hi story mL) subcutaneous pen (Lantus Solostar U-100 Insulin) Exam Pertinent Lab Results Pertinent Lab Results: Laboratory Tests 12/04/23 12:27 WBC 4.5 L Hgb 10.7 L Hct 34.0 L Plt Count 215 D Sodium 136 Potassium 4.7 Chloride 113 H Carbon Dioxide 16 L BUN 25 H Creatinine 1.31 Narrative Narrative: EKG 11/2023 Vent. Rate : 056 BPM Atrial Rate : 056 BPM P-R Int : 176 ms QRS Dur : 094 ms QT Int : 434 ms P-R-T Axes : 047 050 017 degrees QTc Int : 418 ms Sinus bradycardia Otherwise normal ECG When compared with ECG of 11-OCT-2023 13:05, No significant change was found ECHO 09/2023 Conclusions: - The calculated ejection fraction is 64% by biplane method. There is no evidence of regional wall motion abnormalities. - Evidence suggests grade III (severe) diastolic dysfunction. - No obvious valvular pathology seen on this study. NM cardiolite stress test 11/2023 Impression: 1. Myocardial perfusion imaging study shows normal myocardial perfusion 2. Gated LVEF is 69% 3. Transient ischemic dilatation not present EKG is nondiagnostic for ischemia Assessment and Plan Assessment Anesthesia Assessment: Chart Reviewed Documented by User: Dina Tolbert MD 01/01/24 13:33 PMFSH Past Medical History Medical History CKD stage 3 secondary to diabetes Gastroparesis due to secondary diabetes Diastolic dysfunction Bradycardia Burning with urination Encounter for monitoring anti-arrhythmic therapy Essential hypertension Abdominal bloating Small intestinal bacterial overgrowth Nausea and vomiting Dysphagia Periumbilical abdominal pain Globus sensation Orthostatic hypotension Presence of Watchman left atrial appendage closure device Subdural hematoma Syncope and collapse PAF (paroxysmal atrial fibrillation) Vitamin D deficiency Anxiety Depression Overweight (BMI 25.0-29.9) Dyslipidemia Non-toxic multinodular goiter Diabetic polyneuropathy associated with type 2 diabetes mellitus Diabetic retinopathy associated with type 2 diabetes mellitus Diabetes type 2, controlled Family History Family History Father CVD (cardiovascular disease) Mother Diabetes Family history of problems with anesthesia: No Surgical History Surgical History Hx of breast reduction, elective History of cholecystectomy H/O esophagogastroduodenoscopy Hx of colonoscopy History of gastric bypass History of gastric bypass Hx of hand surgery History of Problems with Anesthesia: Yes Social History Social History Household Members: Spouse Alcohol intake: never Patient Tobacco Use Status: Former Tobacco user Tobacco use type: Cigarette Patient Interested in Nicotine Replacement: No Use of substances other than those prescribed or required for medical reasons: No Are you DNR?: No Advance Directives: No Advance Directives Information Provided: Yes Meds Allergies Allergy/AdvReac Type Severity Reaction Status Date / Time empagliflozin AdvReac Intermediate uti Verified 12/06/23 12:46 Home Medications ?Medication ?Instructions ?Recorded ?Confirmed ?Last Taken ?Type calcium carbonate 600 mg-vitamin 1 tab PO BID 03/09/20 01/01/24 Unknown History D3 10 mcg (400 unit) tablet ferrous sulfate 325 mg (65 mg 325 mg PO BID 03/09/20 01/01/24 Unknown History iron) tablet oxybutynin chloride 5 mg tablet 5 mg PO BID 03/09/20 01/01/24 Unknown History trazodone 100 mg tablet 100 mg PO BEDTIME PRN Sleep 03/09/20 01/01/24 Unknown History aspirin 81 mg tablet,delayed 81 mg PO DAILY 11/21/22 01/01/24 Unknown History release (Adult Aspirin Regimen) escitalopram oxalate 20 mg tablet 20 mg PO DAILY 05/30/23 01/01/24 Unknown History meclizine 25 mg tablet 25 mg PO DAILY PRN Dizziness 06/27/23 01/01/24 Unknown History multivitamin 1 tab PO DAILY 07/26/23 01/01/24 Unknown History lancets 28 gauge (FreeStyle #100 ea 10/18/23 01/01/24 Unknown History Lancets) insulin glargine 100 unit/mL (3 18 unit subcut QAM 11/07/23 01/01/24 Unknown History mL) subcutaneous pen (Lantus Solostar U-100 Insulin) Exam Airway Mallampati Class: II TM Dist: >3cm Neck ROM: Full Heart: rrr Lungs: cta Assessment and Plan Assessment Anesthesia Assessment: Anesthesia Plan Discussed Final Anesthetic Review Family History of Problems with Anesthesia: No History of Problems with Anesthesia: Yes NPO: Yes ASA Class: III Final Preanesthetic Review: No Changes in Pt Med Stat, Meds/Allgs Chart Reviewed, Consent Obtained/Reviewed and Anes Risks/Benef Reviewed Patient Risk: Intermediate Procedure Risk: Low Anesthetic Plan Anesthetic Plan: MAC: Disposition: Standard PACU
[2024-01-01] VITALS (7 sets, daily range): BP systolic 144–159; BP diastolic 59–99; PULSE 48–63; RESP 12–18; TEMP 36.4–37.1; O2SAT 98–100; BMI 27.8
--- NOTE | ~2024-01-01 | XR_ITS ---
EXAMINATION: XR CHEST CLINICAL INFORMATION: Pacemaker COMPARISON: Chest radiograph 10/24/2019 TECHNIQUE: Frontal view of the chest was obtained. FINDINGS: Left-sided pacemaker generator in place. No pneumothorax. No pleural effusion. No focal consolidation. The heart and mediastinal borders are normal. XR/XR chest 1V IMPRESSION: No pneumothorax after left-sided pacemaker placement.
--- NOTE | 2024-01-01 12:41 | ECG_ITS ---
Test Reason : preop Blood Pressure : / mmHG Vent. Rate : 048 BPM Atrial Rate : 048 BPM P-R Int : 182 ms QRS Dur : 094 ms QT Int : 462 ms P-R-T Axes : 065 065 018 degrees QTc Int : 412 ms Sinus bradycardia Otherwise normal ECG When compared with ECG of 04-DEC-2023 12:09, No significant change was found Referred By: Jose Lozano Electronically Signed By:ES LEE
[2024-01-01 13:20] LABS: Glucose, Whole Blood 102 mg/dL (60-115)
[2024-01-01] MEDS: Lactated Ringers 1,000 ML 50 ML IVCONT (13:30)
--- NOTE | 2024-01-01 15:25 | W.PM.OPN ---
Operative Note Operative Note Date of Service: 01/01/24 Narrative: NAME OF PROCEDURE: ? 1.???Dual chamber?pacemaker?with?Crain ? INDICATION FOR PROCEDURE:??Sick sinus syndrome Description of Procedure:?Patient was identified brought to the electrophysiology laboratory in a postabsorptive state.??The left pectoral region was prepped and draped in usual sterile fashion. Incision was made over the left pectoral region and pectoral subcutaneous pocket was made. Afterwards left axillary venous access was obtained using micropuncture needle and fluoroscopic guidance, a 7-Namibian sheath was placed.??Right ventricular lead was placed in the right ventricular septum ?with good sensing and pacing thresholds.??The sheath was split and the lead was then anchored to the pectoral fascia with Ethibond suture.?? ? Afterwards left axillary venous access was obtained using micropuncture needle and fluoroscopic guidance, a 7-Namibian sheath was placed.??Right atrial pacing lead was advanced and placed in the base of the right atrial appendage with good sensing and pacing thresholds.??The sheath was split and the lead was then anchored to the pectoral fascia with Ethibond suture.?? ? The subcutaneous pocket was made and the wound was irrigated with antibiotic solution.??The??leads were then connected to a?pacemaker?generator and placed in the pocket.??The wound was closed with 3 layers of absorbable sutures.?? Patient tolerated procedure well.??There were no complications. ? IMPRESSION:?? Successful?implantation?of Dual chamber?pacemaker? ? PLAN: ? 1.?Routine postprocedure monitoring. 2.?CXR today? 3.?Post operative Abx? 4. ???EKG today? 5. ???Interrogation of device Post-op instructions. Do not shower 3 days Keep bandage on 5 days Please do not remove steristrips. Let them fall by themselves. Restriction of left arm for 4-6 weeks.?
--- NOTE | 2024-01-01 15:26 | ECG_ITS ---
Test Reason : post pacer Blood Pressure : / mmHG Vent. Rate : 060 BPM Atrial Rate : 060 BPM P-R Int : 224 ms QRS Dur : 090 ms QT Int : 432 ms P-R-T Axes : 000 064 019 degrees QTc Int : 432 ms Poor data quality, interpretation may be adversely affected Atrial-paced rhythm with prolonged AV conduction Abnormal ECG When compared with ECG of 01-JAN-2024 12:45, Electronic atrial pacemaker has replaced Sinus rhythm Heart rate has increased Referred By: Jose Lozano Electronically Signed By:MER DRAKE
== END 2024-01-01 17:31 | disposition home or self-care (01) ==
PROVIDERS: PCP Internal Medicine; Visit Provider Internal Medicine Cardiovascular Disease
PROC: (CPT 33208; principal; 2024-01-01 13:30)
DX: I49.5 Sick sinus syndrome (principal); I48.0 Paroxysmal atrial fibrillation; I50.30 Unspecified diastolic (congestive) heart failure; E11.22 Type 2 diabetes mellitus with diabetic chronic kidney disease; I12.9 Hypertensive chronic kidney disease with stage 1 through stage 4 chronic kidney disease, or unspecified chronic kidney disease; N18.30 Chronic kidney disease, stage 3 unspecified; E11.42 Type 2 diabetes mellitus with diabetic polyneuropathy; E11.319 Type 2 diabetes mellitus with unspecified diabetic retinopathy without macular edema; Z79.4 Long term (current) use of insulin; Z95.818 Presence of other cardiac implants and grafts; Z91.81 History of falling; G47.33 Obstructive sleep apnea (adult) (pediatric); L85.1 Acquired keratosis [keratoderma] palmaris et plantaris; Z79.899 Other long term (current) drug therapy; Z79.82 Long term (current) use of aspirin; Z79.84 Long term (current) use of oral hypoglycemic drugs; Z88.8 Allergy status to other drugs, medicaments and biological substances; Z87.891 Personal history of nicotine dependence
CPT/HCPCS: 33208; 71045; 82947; 93005; A4364; C1785; C1892; C1894; C1898; J0690; J2250; J2704; J3370; Q9967

== ENCOUNTER → 2024-01-01 12:41 | Outpatient (BNV) | payer OTHER, SELFPAY | PROVIDERS: PCP Internal Medicine; Visit Provider Internal Medicine | DX: R94.31 Abnormal electrocardiogram [ECG] [EKG] (principal) | CPT/HCPCS: 93010 ==

== ENCOUNTER 2024-01-15 14:24 | Outpatient (AMB) | payer OTHER, SELFPAY ==
[2024-01-15 14:40] VITALS: BP 118/54; PULSE 61; BMI 27.6
--- NOTE | 2024-01-15 14:40 | A.OFFVIS_ITS ---
Vital Signs 01/15/24 14:40 Height 5 ft 3 in Weight 156 lb 1.396 oz BMI 27.6 BP 118/54 L Blood Pressure Location Lt brachial Position Sitting Pulse 61 Intake Visit Reasons: 2 wk s/p device implant Blake Vice President Pharmacy Required: Yes Vice President Pharmacy Services: Vice President Pharmacy Offered & Declined Vice President Pharmacy Name: Priscilla-daughter to translate Accompanied by: Daughter Allergies empagliflozin Adverse Reaction (Intermediate, Verified 12/06/23 12:46) uti Medication List - Last Reconciled 01/15/24 by Surjit Anthony MD alum-mag hydroxide-simeth 400-400-40 mg/5 mL (Mylanta Maximum Strength) 10 mL PO QID PRN amlodipine 5 mg PO DAILY aspirin (Adult Aspirin Regimen) 81 mg PO DAILY atorvastatin 80 mg PO BEDTIME Bacillus coagulans (Digestive Advantage Probiotics-Prebiotic) 1 tab po qd PO; 30 days blood sugar diagnostic (FreeStyle Lite Strips) 2times a day blood-glucose meter (FreeStyle Lite Meter kit) Twice a day blood-glucose meter,continuous (FreeStyle Zunilda 3 [place]) As directed blood-glucose sensor (FreeStyle Zunilda 3 Sensor device) every 14 days calcium carbonate-vitamin D3 600 mg-10 mcg (400 unit) 1 tab PO BID cholecalciferol (vitamin D3) 50 mcg PO DAILY [diabetic shoes extra depth orthopedic shoes ( 1 pair ) with customize heat molded multi density inner soles ( 3 pair) Dispense 1 Sig: As directed DX: And IDDM /polyneuropathy ( E11 0.42 ); hammertoe foot deformity ( M 20.41, and 20.42 ) pre ulcerative skin lesion ( L 85.1 ) Diagnosis ( E11 0.42 ) type 2 diabetes with polyneuropathy] [diabetic shoes extra depth orthopedic shoes ( 1 pair ) with customize heat molded multi density inner soles ( 3 pair) Dispense 1 Sig: As directed DX: And IDDM /polyneuropathy ( E11 0.42 ); hammertoe foot deformity ( M 20.41, and 20.42 ) pre ulcerative skin lesion ( L 85.1 ) Diagnosis ( E11 0.42 ) type 2 diabetes with polyneuropathy] dicyclomine 20 mg PO QID escitalopram oxalate 20 mg PO DAILY famotidine (Pepcid) 40 mg PO BEDTIME 30 days ferrous sulfate 325 mg PO BID flecainide 50 mg PO Q12H furosemide 20 mg PO DAILY gabapentin 300 mg PO BEDTIME insulin glargine (Lantus Solostar U-100 Insulin) 18 units subcut QAM lancets (FreeStyle Lancets) As directed linaclotide (Linzess) 145 mcg PO QAM meclizine 25 mg PO DAILY PRN metformin 1,000 mg PO BID metoclopramide HCl 5 mg PO QID metoprolol succinate ER 25 mg PO DAILY multivitamin 1 tab PO DAILY oxybutynin chloride 5 mg PO BID rabeprazole 20 mg PO BID sennosides (senna) 17.2 mg (2 x 8.6 mg) PO BEDTIME PRN simethicone 180 mg PO TID trazodone 100 mg PO BEDTIME PRN HPI Comments Details: Dana returns for follow-up regarding various cardiac issues. To recall, she has a history of atrial fibrillation. She also has orthostatic hypotension. In the past, she had a fall leading to subdural hemorrhage. She was taking Eliquis but because of intracranial hemorrhage she went for Watchman device placement. She seems to be stable in that regard. With regard to orthostatic hypotension she was taking midodrine. However blood pressures rather started going up and hence Midodrine was stopped and amlodipine started. Otherwise, various complaints like fatigue, dizziness with changing positions and walking led to a stress test which revealed chronotropic incompetence. Following this, referred to EP and she underwent a pacemaker placement 2 weeks ago. She states she is feeling good. At least some subjective improvement after the procedure. No new complaints. Daughter is also here for the appointment. [facility] Medical History CKD stage 3 secondary to diabetes Gastroparesis due to secondary diabetes Diastolic dysfunction Bradycardia Burning with urination Encounter for monitoring anti-arrhythmic therapy Essential hypertension Abdominal bloating Small intestinal bacterial overgrowth Nausea and vomiting Dysphagia Periumbilical abdominal pain Globus sensation Orthostatic hypotension Presence of Watchman left atrial appendage closure device Subdural hematoma Syncope and collapse PAF (paroxysmal atrial fibrillation) Vitamin D deficiency Anxiety Depression Overweight (BMI 25.0-29.9) Dyslipidemia Non-toxic multinodular goiter Diabetic polyneuropathy associated with type 2 diabetes mellitus Diabetic retinopathy associated with type 2 diabetes mellitus Diabetes type 2, controlled Surgical History Hx of breast reduction, elective History of cholecystectomy H/O esophagogastroduodenoscopy Hx of colonoscopy History of gastric bypass History of gastric bypass Hx of hand surgery Family History Father CVD (cardiovascular disease) Mother Diabetes Social History Household Members: Spouse Alcohol intake: never Patient Tobacco Use Status: Former Tobacco user Tobacco use type: Cigarette Review of Systems Const All systems reviewed & are unremarkable except as noted in HPI and below Reports as per HPI and Reports no additional complaints Eyes Reports as per HPI and Denies no additional complaints ENT Denies no additional complaints and Reports as per HPI Card Reports as per HPI, Reports no additional complaints, Denies acrocyanosis, Denies chest pain, Denies leg edema, Denies lightheadedness, Denies palpitations and Denies dyspnea Resp Reports as per HPI, Denies no additional complaints and Denies dyspnea GI Reports as per HPI and Denies no additional complaints Reports as per HPI Musc Reports no additional complaints and Reports as per HPI Skin/Breast Reports system reviewed and no additional complaints, except as documented Neuro Reports no additional complaints and Reports as per HPI Psych Reports no additional complaints and Reports as per HPI Endo Reports no additional complaints, Reports as per HPI and Denies palpitations Von/Lymph Reports no additional complaints and Reports as per HPI Aller/Immun Reports no additional complaints and Reports as per HPI Physical Exam Vital Signs: Last Vital Signs Pulse 61 01/15/24 14:40 BP 118/54 L 01/15/24 14:40 BMI result Body Mass Index 27.6 Const General: comfortable and no acute distress Orientation/consciousness: patient oriented x3 HEENT Other: Unremarkable Head: Yes normal to inspection Neck Neck: Yes normal visual inspection Chest Chest palpation & inspection: normal inspection of the chest Resp Auscultation: clear to auscultation bilaterally Cardio Palpation: normal PMI Heart sounds: S1 normal heart sound present, S2 normal heart sound present, no gallops, no murmurs and no rubs GI Palpation (GI): Soft to palpation Back/Spine/Pelvis Other: unremarkable Skin General skin exam: no rashes or lesions noted Neuro General: patient oriented x3 Extrem General: Yes normal to inspection Psych Mental Status: mental status grossly normal Office Procedures Cardiac Device Check Cardiac Device Check Details: Pacemaker interrogated today. Dual-chamber device, programmed DDDR mode. Battery status more than 9 years. Normal lead parameters. Short mode switch episodes, could be atrial flutter versus atrial tachycardia. Less likely atrial fibrillation. Overall burden less than 1%. Normal device function. [id number] Cardiac Device Check, pacemaker dual lead Procedure code (CPT) selection complete EKG Details: EKG with underlying sinus rhythm at 61/Min; inferior and anterolateral T inversions. Possible pacemaker related T-wave memory phenomenon[place]. [id number], Complete Assessment & Plan Assessment & Plan (1) PAF (paroxysmal atrial fibrillation): Code(s): I48.0 - Paroxysmal atrial fibrillation Category: Medical Plan: Brief episodes on pacemaker interrogation. Nothing sustained. She has been stable on beta-blockers and flecainide and okay to continue. Possibly ablation candidate in the future. (2) Presence of Watchman left atrial appendage closure device: Code(s): Z95.818 - Presence of other cardiac implants and grafts Category: Medical Plan: Due to fall, subdural hemorrhage while on anticoagulation, she is now status post Watchman device. Continue Aspirin. (3) Chronic diastolic (congestive) heart failure: Code(s): I50.32 - Chronic diastolic (congestive) heart failure Category: Medical Plan: Echocardiogram had grade 3 diastolic dysfunction. Preserved LVEF. Stable on diuretics. May continue. (4) Orthostatic hypotension: Code(s): I95.1 - Orthostatic hypotension Category: Medical Plan: She is off midodrine. No recent issues. (5) Abnormal EKG: Code(s): R94.31 - Abnormal electrocardiogram [ECG] [EKG] Category: Medical Plan: T-wave inversions could be related to pacemaker memory. She has got no cardiac symptoms whatsoever. Most recently, perfusion imaging last month was normal. (6) Chronotropic incompetence: Code(s): I45.89 - Other specified conduction disorders Category: Medical Plan: Status post pacemaker. Rate response settings have been adjusted. Plan Discussed with daughter who came for appointment. Medications: Discontinued gabapentin Discontinued Reason: Patient no longer taking 300 mg PO BEDTIME 90 caps 1RF Coding Level of Care Code Est Pt Level 4 (56036) Diagnoses PAF (paroxysmal atrial fibrillation) I48.0 Presence of Watchman left atrial appendage closure device Z95.818 Chronic diastolic (congestive) heart failure I50.32 Orthostatic hypotension I95.1 Abnormal EKG R94.31 Chronotropic incompetence I45.89 CPT Codes Cardiac Device Check - Cardiac Device 2: 13380-FF Cardiac Device Check, pacemaker dual lead ([id number]) EKG - CPT: 77462-[id number], Complete ([id number])
== END 2024-01-15 15:36 | disposition home or self-care (01) ==
PROVIDERS: PCP Internal Medicine; Visit Provider Internal Medicine
DX: I48.0 Paroxysmal atrial fibrillation (principal); Z95.818 Presence of other cardiac implants and grafts; I50.32 Chronic diastolic (congestive) heart failure; I95.1 Orthostatic hypotension; R94.31 Abnormal electrocardiogram [ECG] [EKG]; I45.89 Other specified conduction disorders
CPT/HCPCS: 93010; 93280; 99214

== ENCOUNTER → 2024-01-15 14:24 | Outpatient (BNVA) | payer OTHER, SELFPAY | PROVIDERS: PCP Internal Medicine; Visit Provider Internal Medicine | DX: I48.0 Paroxysmal atrial fibrillation (principal); I50.32 Chronic diastolic (congestive) heart failure; I95.1 Orthostatic hypotension; I45.89 Other specified conduction disorders; R94.31 Abnormal electrocardiogram [ECG] [EKG]; Z95.818 Presence of other cardiac implants and grafts; Z45.018 Encounter for adjustment and management of other part of cardiac pacemaker | CPT/HCPCS: 93005; 93280; 99212 ==

== ENCOUNTER → 2024-01-22 23:59 | Outpatient (BNV) | payer OTHER, SELFPAY ==
--- NOTE | 2024-01-26 13:58 | A.OFFVIS_ITS ---
Intake Visit Reasons: Remote device check- [facility] [employer]g Allergies empagliflozin Adverse Reaction (Intermediate, Verified 12/06/23 12:46) uti PFSH Medical History CKD stage 3 secondary to diabetes Gastroparesis due to secondary diabetes Diastolic dysfunction Bradycardia Burning with urination Encounter for monitoring anti-arrhythmic therapy Essential hypertension Abdominal bloating Small intestinal bacterial overgrowth Nausea and vomiting Dysphagia Periumbilical abdominal pain Globus sensation Orthostatic hypotension Presence of Watchman left atrial appendage closure device Subdural hematoma Syncope and collapse PAF (paroxysmal atrial fibrillation) Vitamin D deficiency Anxiety Depression Overweight (BMI 25.0-29.9) Dyslipidemia Non-toxic multinodular goiter Diabetic polyneuropathy associated with type 2 diabetes mellitus Diabetic retinopathy associated with type 2 diabetes mellitus Diabetes type 2, controlled Surgical History Hx of breast reduction, elective History of cholecystectomy H/O esophagogastroduodenoscopy Hx of colonoscopy History of gastric bypass History of gastric bypass Hx of hand surgery Family History Father CVD (cardiovascular disease) Mother Diabetes Social History Household Members: Spouse Alcohol intake: never Patient Tobacco Use Status: Former Tobacco user Tobacco use type: Cigarette Office Procedures Cardiac Device Check Cardiac Device Check Details: Date of service- 01/22/2024 ; Battery life >10 years; normal lead parameters; AP 35%; [employer]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 Overall normal device function. [id number] Cardiac Device Interrogation, pacemaker Procedure code (CPT) selection complete Assessment & Plan Assessment & Plan (1) Pacemaker: Code(s): Z95.0 - Presence of cardiac pacemaker Category: Medical (2) PAF (paroxysmal atrial fibrillation): Code(s): I48.0 - Paroxysmal atrial fibrillation Category: Medical Plan x Coding Level of Care Code Procedure Only Diagnoses Pacemaker Z95.0 PAF (paroxysmal atrial fibrillation) I48.0 CPT Codes Cardiac Device Check - Cardiac Device 12: [id number] Cardiac Device Interrogation, pacemaker ([id number])
== END ==
PROVIDERS: PCP Internal Medicine; Visit Provider Internal Medicine
DX: I48.0 Paroxysmal atrial fibrillation (principal); Z95.0 Presence of cardiac pacemaker
CPT/HCPCS: 93294

== ENCOUNTER 2024-01-27 13:53 | Outpatient (AMB) | payer OTHER, SELFPAY ==
[2024-01-27 14:03] VITALS: BMI 28.2
--- NOTE | 2024-01-27 14:03 | A.OFFVIS_ITS ---
VS Expanded 01/27/24 14:03 Height 5 ft 3 in Weight 159 lb 6.307 oz BMI 28.2 Intake Visit Reasons: Celiac/CONFIRMED Allergies empagliflozin Adverse Reaction (Intermediate, Verified 12/06/23 12:46) uti Nutrition Presentation Details: Pt presents for MNT f/u for Celiac Disease Pt also has t2dm, reports blood glucose in am are high >150-200s, reports bg are monitored by home visiting nurse Pt reports she is no longer as diligent in choosing gluten free foods. Pt reports having breakfast : bread with butter and coffee with milk and sugar (gluten containing bread) L: rice/beans/salad or breaded chicken and pasta or corn tortilla , water /juice light D: crackers and butter or soup physical activity: daily life activities etoh/smoking: denies BS Monitoring Most Recent Diabetes Results: Creatinine 1.31 mg/dL (0.5-1.4) 12/04/23 Blood Urea Nitrogen 25 mg/dL (9-16) H 12/04/23 Sodium 136 mmol/L (135-145) 12/04/23 Potassium 4.7 mmol/L (3.3-5.1) 12/04/23 Chloride 113 mmol/L (96-108) H 12/04/23 Carbon Dioxide 16 mmol/L (22-29) L 12/04/23 Calcium 8.3 mg/dL (8.4-10.2) L 12/04/23 AST 46 U/L (5-31) H 12/04/23 ALT 62 U/L (0-31) H 12/04/23 Total Protein 7.1 g/dL (6.5-8.0) 12/04/23 Albumin 3.8 g/dL (3.5-5.0) 12/04/23 [facility] Medical History CKD stage 3 secondary to diabetes Gastroparesis due to secondary diabetes Diastolic dysfunction Bradycardia Burning with urination Encounter for monitoring anti-arrhythmic therapy Essential hypertension Abdominal bloating Small intestinal bacterial overgrowth Nausea and vomiting Dysphagia Periumbilical abdominal pain Globus sensation Orthostatic hypotension Presence of Watchman left atrial appendage closure device Subdural hematoma Syncope and collapse PAF (paroxysmal atrial fibrillation) Vitamin D deficiency Anxiety Depression Overweight (BMI 25.0-29.9) Dyslipidemia Non-toxic multinodular goiter Diabetic polyneuropathy associated with type 2 diabetes mellitus Diabetic retinopathy associated with type 2 diabetes mellitus Diabetes type 2, controlled Surgical History Hx of breast reduction, elective History of cholecystectomy H/O esophagogastroduodenoscopy Hx of colonoscopy History of gastric bypass History of gastric bypass Hx of hand surgery Family History Father CVD (cardiovascular disease) Mother Diabetes Social History Household Members: Spouse Alcohol intake: never Patient Tobacco Use Status: Former Tobacco user Tobacco use type: Cigarette Assessment & Plan Assessment & Plan (1) Celiac disease: Comment: with acquired absence of specified part of digestive tract (hx of cholecystectomy, gastric bypass surgery) Code(s): K90.0 - Celiac disease Category: Medical Plan: Wt: 60 Kg ( 08/2023 ), 62 kg (09/2023), 65 kg (10/2023), 72 kg (02/10) Est kcal needs as per MSJ: 1500 (40% carb, 30% protein/fat) Est fluid needs as per 25-30 ml/d: 1800 Est prot per day as per 1 g/kg bw: 60 Recommend fiber intake : 8-10 g per day and gradually increase to 25-28 g per day for women and 35-38 g for men or as tolerated Recommend sodium intake per day : less than 2000 mg Educated patient on: ( R = reviewed V = verbalizes understanding N/R = needs review N/A = not applicable * Gluten free Food sources : R * Lean protein sources of foods: R * Gluten free meal plan ideas , simple to prepare, carry gluten free foods /snacks * Chronic conditions related to lack of adherence to gluten free diet with Celiac Disease: R * Vitamins and minerals in food and lack of absorption with gluten in people with Celiac Disease R * Healthy plate method concept: R * Physical activity: Benefits a precaution: N/R * prevention of cross contamination : R Patient Instructions: Resume choosing gluten free options - see gluten free meal ideas consisiting fo 45 g carb per meal and 15 g or less per snack Watch on portion sizes of gluten free starches for glucose control Coding Level of Care Code Nutr Indiv Subseq (74527) Diagnoses Celiac disease K90.0 Time Spent (min) 30
== END 2024-01-27 14:37 | disposition home or self-care (01) ==
PROVIDERS: PCP Internal Medicine; Visit Provider Dietitian, Registered
DX: K90.0 Celiac disease (principal)

== ENCOUNTER → 2024-01-27 13:53 | Outpatient (BNVA) | payer OTHER, SELFPAY | PROVIDERS: PCP Internal Medicine; Visit Provider Dietitian, Registered | DX: K90.0 Celiac disease (principal) | CPT/HCPCS: 97803 ==

== ENCOUNTER 2024-02-05 15:22 | Outpatient (AMB) | payer OTHER, SELFPAY ==
--- NOTE | 2024-02-05 15:35 | A.OFFVIS_ITS ---
Vital Signs 02/05/24 15:39 Height 5 ft 3 in Weight 163 lb 2.273 oz BMI 28.9 BP 116/60 Blood Pressure Location Rt brachial Position Sitting Pulse 62 Pulse Source Pulse Oximeter Intake Visit Reasons: T2DM/LVM Intake Note: Patient presents today for a follow-up on Type 2 Diabetes Mellitus: Last Diabetic eye exam was on: 02/2023 Last Podiatry exam was on: Does not see a Manager Immunology Most recent HbA1c: 8.0%, 02/05/2024 Random Glucose- 306 mg/dL, Today Radiology Orderly Required: Yes Radiology Orderly Language: Director Trial Services: Radiology Orderly Offered & Declined Accompanied by: Daughter Allergies empagliflozin Adverse Reaction (Intermediate, Verified 02/05/24 15:43) uti HPI Comments Details: Patient is 68-year-old female with DM type 2 diagnosed 1989 who presents for f/u diabetes visit. She was last seen in Endocrine 11/07/2023. She had recently been started on Lantus insulin at 6 units prior to that visit and this was increased to 20 units. [facility] is administering insulin each morning. A1C in the office today is 8.8%. She previously had been on acarbose and Jardiance. She has had multiple klebsiella + uti's in the past. Issues with memory. She has a referral for neurology. low at night x 1 Diabetes medications Lantus 18 units every am by VNA Metformin 1000 mg b.i.d. Readings by [facility] in the am: running 120's in the am Past medical history: Diabetes type 2, obesity status post gastric bypass surgery in 2005, vitamin-D deficiency, depression, osteopenia, multinodular goiter, low TSH. 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 She is no longer wearing open toed shoes. Ophthalmology evaluation: Feb 2023 retinopathy per pt she has f/u exam Other specialists: Cardiology [facility] Medical History CKD stage 3 secondary to diabetes Gastroparesis due to secondary diabetes Diastolic dysfunction Bradycardia Burning with urination Encounter for monitoring anti-arrhythmic therapy Essential hypertension Abdominal bloating Small intestinal bacterial overgrowth Nausea and vomiting Dysphagia Periumbilical abdominal pain Globus sensation Orthostatic hypotension Presence of Watchman left atrial appendage closure device Subdural hematoma Syncope and collapse PAF (paroxysmal atrial fibrillation) Vitamin D deficiency Anxiety Depression Overweight (BMI 25.0-29.9) Dyslipidemia Non-toxic multinodular goiter Diabetic polyneuropathy associated with type 2 diabetes mellitus Diabetic retinopathy associated with type 2 diabetes mellitus Diabetes type 2, controlled Surgical History Hx of breast reduction, elective History of cholecystectomy H/O esophagogastroduodenoscopy Hx of colonoscopy History of gastric bypass History of gastric bypass Hx of hand surgery Family History Father CVD (cardiovascular disease) Mother Diabetes Social History Household Members: Spouse Alcohol intake: never Patient Tobacco Use Status: Former Tobacco user Tobacco use type: Cigarette Physical Exam Vital Signs: Last Vital Signs Pulse 62 02/05/24 15:39 BP 116/60 02/05/24 15:39 BMI result Body Mass Index 28.9 Const Other: Absence of Cushingoid features. Absence of acromegalic features. Neck exam reveals nl size thyroid about 15 gms. No thyroid nodules palpable. No carotid bruits present. Lungs CTA. Heart S1 S2, Reg R/R. No M/R G. Skin exam reveals absence of vitiligo or acanthosis nigricans. No edema Results AMB Hemoglobin A1c AMB Hemoglobin A1c 8.0 % Last Edit by SEBASTIAN Srivastava on 02/05/24 16:07 Results Reviewed Results Reviewed: Laboratory Last Values Glucose (Clinic) 306 mg/dL (60-115) H 02/05/24 15:46 Hgb A1c (Clinic) 8.0 % (4.0-6.0) H 02/05/24 16:06 Laboratory Tests 10/18/23 12/04/23 11:22 12:27 Potassium 4.7 Creatinine 1.31 Estimated GFR 41 Calcium 8.3 L Urine Microalbumin 9.0 Microalb/Creat Ratio 11.0 Assessment & Plan Assessment & Plan (1) Diabetes type 2, controlled: Code(s): E11.9 - Type 2 diabetes mellitus without complications Category: Medical Plan: Type 2 diabetic with improving numbers. Continue current medication. Orders: Orders AMB Hemoglobin A1c 02/05/24 E11.319 - Type 2 diabetes mellitus with unspecified diabetic retinopathy without macular edema Coding Level of Care Code Est Pt Level 4 (61603) Diagnoses Diabetes type 2, controlled E11.9 Time Spent (min) 30 Comment Time spent reviewing labs/provider notes, face to face, chart doc
[2024-02-05 15:39] VITALS: BP 116/60; PULSE 62; BMI 28.9
[2024-02-05 15:50] LABS: Glucose, Whole Blood 306 mg/dL (60-115)
== END 2024-02-05 16:09 | disposition home or self-care (01) ==
PROVIDERS: PCP Internal Medicine; Visit Provider Nurse Practitioner Adult Health
DX: E11.9 Type 2 diabetes mellitus without complications (principal)
CPT/HCPCS: 99214

== ENCOUNTER → 2024-02-05 15:22 | Outpatient (BNVA) | payer OTHER, SELFPAY | PROVIDERS: PCP Internal Medicine; Visit Provider Nurse Practitioner Adult Health | DX: E11.9 Type 2 diabetes mellitus without complications (principal); Z79.4 Long term (current) use of insulin; Z79.84 Long term (current) use of oral hypoglycemic drugs | CPT/HCPCS: 82947; 83036; 99212 ==

== ENCOUNTER 2024-02-24 12:17 | Outpatient (AMB) | payer OTHER, SELFPAY ==
--- NOTE | 2024-02-24 16:19 | MHC.OFFVIS ---
Intake Visit Reasons: Device adjustment per DC Allergies empagliflozin Adverse Reaction (Intermediate, Verified 02/05/24 15:43) uti [facility] Medical History CKD stage 3 secondary to diabetes Gastroparesis due to secondary diabetes Diastolic dysfunction Bradycardia Burning with urination Encounter for monitoring anti-arrhythmic therapy Essential hypertension Abdominal bloating Small intestinal bacterial overgrowth Nausea and vomiting Dysphagia Periumbilical abdominal pain Globus sensation Orthostatic hypotension Presence of Watchman left atrial appendage closure device Subdural hematoma Syncope and collapse PAF (paroxysmal atrial fibrillation) Vitamin D deficiency Anxiety Depression Overweight (BMI 25.0-29.9) Dyslipidemia Non-toxic multinodular goiter Diabetic polyneuropathy associated with type 2 diabetes mellitus Diabetic retinopathy associated with type 2 diabetes mellitus Diabetes type 2, controlled Surgical History Hx of breast reduction, elective History of cholecystectomy H/O esophagogastroduodenoscopy Hx of colonoscopy History of gastric bypass History of gastric bypass Hx of hand surgery Family History Father CVD (cardiovascular disease) Mother Diabetes Social History Household Members: Spouse Alcohol intake: never Patient Tobacco Use Status: Former Tobacco user Tobacco use type: Cigarette Office Procedures Cardiac Device Check Cardiac Device Check Details: Bigg dual-chamber pacemaker interrogation today, battery 5.2-5.5 years, atrial threshold 0.5 volts at 0.5 milliseconds, , RV threshold 0.625 volts at 0.5 milliseconds, DDDR mode, low rate 60, a paced 42%, V paced 90%, 70613 mode switches, long 80 AF episodes, V capture high output mode 5 volts, many episodes of mode switching are from far field sensing causing the appearance of atrial flutter. Discussed with [employer] rep. Adjustments made, VIP off, ATDR 150, PVARP 275, PVAB 60. [id number] Cardiac Device Check, pacemaker dual lead Procedure code (CPT) selection complete Assessment & Plan Assessment & Plan (1) Pacemaker: Code(s): Z95.0 - Presence of cardiac pacemaker Category: Medical Plan: Office device check. Setting change to lessen far field sensing and false mode switching. Coding Level of Care Code Procedure Only Diagnoses Pacemaker Z95.0 CPT Codes Cardiac Device Check - Cardiac Device 2: 79938-HL Cardiac Device Check, pacemaker dual lead ([id number])
== END 2024-02-24 13:22 | disposition home or self-care (01) ==
PROVIDERS: PCP Internal Medicine; Visit Provider Nurse Practitioner Family
DX: Z45.018 Encounter for adjustment and management of other part of cardiac pacemaker (principal)
CPT/HCPCS: 93280

== ENCOUNTER → 2024-02-24 12:17 | Outpatient (BNVA) | payer OTHER, SELFPAY | PROVIDERS: PCP Internal Medicine; Visit Provider Nurse Practitioner Family | DX: Z45.018 Encounter for adjustment and management of other part of cardiac pacemaker (principal) | CPT/HCPCS: 93280 ==

== ENCOUNTER 2024-03-13 15:30 | Outpatient (AMB) | payer OTHER, SELFPAY ==
--- NOTE | 2024-03-13 15:36 | A.OFFVIS_ITS ---
Vital Signs 03/13/24 15:40 Height 5 ft 2 in Weight 160 lb BMI 29.3 BP 138/63 Blood Pressure Location Lt brachial Position Sitting Pulse 60 Intake Visit Reasons: 8 week f/u Intake Note: Patient follow up for Celiac disease. Patient cc: acid reflex on and off, and between diarrhea and constipation. Denies any other GI issues. 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 Accompanied by: Daughter Allergies empagliflozin Adverse Reaction (Intermediate, Verified 05/06/24 08:45) uti HPI HPI 8 week f/u: Details: Assessment & Plan (1) Chronic idiopathic constipation: Code(s): K59.04 - Chronic idiopathic constipation Category: Medical (2) GERD (gastroesophageal reflux disease): Code(s): K21.9 - Gastro-esophageal reflux disease without esophagitis Category: Medical (3) Celiac disease: Comment: with acquired absence of specified part of digestive tract (hx of cholecystectomy, gastric bypass surgery) Code(s): K90.0 - Celiac disease Category: Medical Plan Citizen Of [place] #grddtr translates per pt request She had another bad attack of CP, but she now is refusing to follow her Celiac diet and avoid lactose. She also will frequently forget her mid day Reglan doses. I think for breakthrough GERD and for this situation she should try [id number] Mylanta being aware that drinking too much of it can give her diarrhea. Given this, her stooling is variable between CIC and diarrhea - most likely r/t diet. NO real help with bentyl. She continues on her rabeprazole twice a day and Linzess 145 micro g. ROV 8 weeks. Medications: New alum-mag hydroxide-simeth 400-400-40 mg/5 mL (Mylanta Maximum Strength) 5 mL PO QID PRN 3,000 mL 3RF chest pain K21.9 - Gastro-esophageal reflux disease without esophagitis alum-mag hydroxide-simeth 400-400-40 mg/5 mL (Mylanta Maximum Strength) 10 mL PO QID PRN 3,000 mL 3RF chest pain K21.9 - Gastro-esophageal reflux disease without esophagitis Refilled famotidine (Pepcid) 40 mg PO BEDTIME 30 tabs 6RF 30 days K21.9 - Gastro- esophageal reflux disease without esophagitis metoclopramide HCl 5 mg PO QID 120 tabs 6RF R11.2 - Nausea with vomiting, unspecified, E11.42 - Type 2 diabetes mellitus with diabetic polyneuropathy Discontinued omeprazole Discontinued Reason: Doctor's Order 40 mg PO DAILY 30 caps 0RF linaclotide Discontinued Reason: No Longer Medically Relevant 290 mcg PO QAM 30 days 30 caps 3RF CORRESPONDENCE On 12/12/23 @ 15:45 Nasir Arora Wrote To MayitoShari [facility]; according to [facility], the pt was giving them false information. In fact, the pt has been having loose stools for the last week. Advised [facility] to HOLD the linzess for future notice and do NOT pickle pumper the new Rx. Advised [facility] that we would discuss the situation with the SPREADER and we would reach back out with any updates. On 12/12/23 @ 13:04 Shari Edmond Wrote To Nasir Arora Call advise her I am sending a higher dose of Linzess. On 12/12/23 @ 12:37 Nasir Arora Wrote To MayitoAugust Willow - Deicer Tester called to report that the pt has been experiencing constipation and has not had a bowel movement in 6 days. No other sx or information given. Please advise. Thank you. TODAY'S VISIT Citizen Of [place] #grddtr translates per pt request They report she goes back and forth between CIC and diarrhea. But they admit she is not good at following her diet in terms of avoiding gluten and lactose. She is quite forgetful and this is a confounding factor. There are larger questions regarding her capacity for self care that are quite concerning. With this, it is severely difficult to devise a care plan. I think we will keep the LInzess out of the mix since the diarrhea is harder than the CIC to deal with. Since she does not seem to have the capacity to control her diet she will move her bowels eventually, r/t her food allergies. She is in an adult day program but they are limited in what they can do to supervise and provide her limited nutrition. At times the pt will become quite uncooperative and refuses to follow her diet despite the family trying to keep gluten free options in the house. Her medications are given by [facility] out of a locked box. She is on a waiting list for neuropsych evaluation...it really sounds like she may need to be in a continuously supervised living situation. ROV 6 mos. PFS Medical History Diastolic dysfunction Hypertension CKD stage 3 secondary to diabetes Gastroparesis due to secondary diabetes Bradycardia Burning with urination Encounter for monitoring anti-arrhythmic therapy Essential hypertension Abdominal bloating Small intestinal bacterial overgrowth Nausea and vomiting Dysphagia Periumbilical abdominal pain Globus sensation Orthostatic hypotension Presence of Watchman left atrial appendage closure device Subdural hematoma Syncope and collapse PAF (paroxysmal atrial fibrillation) Vitamin D deficiency Anxiety Depression Overweight (BMI 25.0-29.9) Dyslipidemia Non-toxic multinodular goiter Diabetic polyneuropathy associated with type 2 diabetes mellitus Diabetic retinopathy associated with type 2 diabetes mellitus Diabetes type 2, controlled Surgical History Hx of breast reduction, elective History of cholecystectomy H/O esophagogastroduodenoscopy Hx of colonoscopy History of gastric bypass History of gastric bypass Hx of hand surgery Family History Father CVD (cardiovascular disease) Mother Diabetes Social History Household Members: Spouse Alcohol intake: never Patient Tobacco Use Status: Former Tobacco user Tobacco use type: Cigarette Smoked in Last 30 Days: Yes Use of substances other than those prescribed or required for medical reasons: No Advance Directives: No Advance Directives Information Provided: Yes Review of Systems Const Denies fatigue, Denies fever(s), Denies night sweats, Denies poor appetite and Denies weight loss ENT Reports Normal hearing present, Denies dental pain, Denies dysphagia, Denies hearing loss, Denies mouth pain, Denies odynophagia, Denies throat swelling, Denies tongue swelling and Reports other (Dentition adequate) Card Reports no additional complaints Resp Reports no additional complaints GI Details: Denies abdominal pain, Denies melena, Denies bloating, Denies hematochezia, Reports constipation, Denies GI cramping, Denies dysphagia, Denies excessive flatus, Reports early satiety, Reports heartburn, Reports diarrhea, Denies nausea, Denies odynophagia, Denies vomiting and Denies hematemesis Skin/Breast Denies pruritus, Denies lesions, Denies rash and Denies jaundice Neuro Reports Normal hearing present, Denies Abnormal speech present, Reports behavioral changes and Reports memory loss Psych Reports behavioral changes and Reports memory loss Endo Denies fatigue Aller/Immun Denies throat swelling and Denies tongue swelling Physical Exam Vital Signs: Last Vital Signs Pulse 60 03/13/24 15:40 BP 138/63 03/13/24 15:40 BMI result Body Mass Index 29.3 Const General: cooperative, no acute distress, well developed and well groomed Nutritional Appearance: well nourished and overweight Orientation/consciousness: oriented to person, oriented to place and oriented to time Limitations: language barrier and other limitations HEENT Head: Yes normocephalic and Yes atraumatic Eyes General: appearance normal, both eyes and all related structures Pupils: Equal, round and reactive pupils present Neck Neck: Yes normal visual inspection and Yes no lymphadenopathy Thyroid: Thyroid normal Resp Effort & Inspection: normal respiratory effort and able to speak in complete sentences Auscultation: clear to auscultation bilaterally Cardio Rate: regular rate Rhythm: regular rhythm Heart sounds: Normal, physiologic split S2 sound present Peripheral pulses: radial pulses present and posterior tibial pulses present GI Inspection: No distended and No Abdominal panniculus present Palpation (GI): Soft to palpation, nontender, no guarding, not rigid and No hepatosplenomegaly present Percussion: Yes normal to percussion Auscultation: normal bowel sounds Rectal Exam - Female: deferred Skin General skin exam: no rashes or lesions noted, turgor normal, skin not dry, no jaundice, No spider nevi and no striae Rashes: no rashes Nails: normal Neuro General: oriented to person, oriented to place and oriented to time Cranial nerves: Yes Equal, round and reactive pupils present and Yes Normal hearing present Speech: No Abnormal speech present Extrem General: Yes normal to inspection, No clubbing, No cyanosis and No edema Psych Appearance: grossly normal and well kempt Mental Status: other Speech and movement: Slowed speech present (Psych) Affect: normal affect Attitude: cooperative Thought process: not confabulating and Impoverished thought process present Thought content: Normal thought content present Insight: Poor insight present (Psych) Judgement: Poor judgement present (Psych) Assessment & Plan Assessment & Plan (1) Chronic idiopathic constipation: Code(s): K59.04 - Chronic idiopathic constipation Category: Medical (2) Celiac disease: Comment: with acquired absence of specified part of digestive tract (hx of cholecystectomy, gastric bypass surgery) Code(s): K90.0 - Celiac disease Category: Medical (3) GERD (gastroesophageal reflux disease): Code(s): K21.9 - Gastro-esophageal reflux disease without esophagitis Category: Medical (4) Gastroparesis due to secondary diabetes: Code(s): E13.43 - Other specified diabetes mellitus with diabetic autonomic (poly)neuropathy Category: Medical Plan Citizen Of [place] #grddtr translates per pt request They report she goes back and forth between CIC and diarrhea. But they admit she is not good at following her diet in terms of avoiding gluten and lactose. She is quite forgetful and this is a confounding factor. There are larger questions regarding her capacity for self care that are quite concerning. With this, it is severely difficult to devise a care plan. I think we will keep the LInzess out of the mix since the diarrhea is harder than the CIC to deal with. Since she does not seem to have the capacity to control her diet she will move her bowels eventually, r/t her food allergies. She is in an adult day program but they are limited in what they can do to supervise and provide her limited nutrition. At times the pt will become quite uncooperative and refuses to follow her diet despite the family trying to keep gluten free options in the house. Her medications are given by [facility] out of a locked box. She is on a waiting list for neuropsych evaluation...it really sounds like she may need to be in a continuously supervised living situation. She will continue on dicyclomine as needed, famotidine, rabeprazole and simethicone. ROV 6 mos. Depending on her living situation. Coding Level of Care Code Est Pt Level 3 (37988) Diagnoses Chronic idiopathic constipation K59.04 Celiac disease K90.0 GERD (gastroesophageal reflux disease) K21.9 Gastroparesis due to secondary diabetes E13.43
[2024-03-13 15:40] VITALS: BP 138/63; PULSE 60; BMI 29.3
== END 2024-03-13 16:58 | disposition home or self-care (01) ==
PROVIDERS: PCP Internal Medicine; Visit Provider Nurse Practitioner
DX: K90.0 Celiac disease (principal); K21.9 Gastro-esophageal reflux disease without esophagitis; E13.43 Other specified diabetes mellitus with diabetic autonomic (poly)neuropathy
CPT/HCPCS: 99213

== ENCOUNTER → 2024-03-13 15:30 | Outpatient (BNVA) | payer OTHER, SELFPAY | PROVIDERS: PCP Internal Medicine; Visit Provider Nurse Practitioner | DX: K59.04 Chronic idiopathic constipation (principal); K21.9 Gastro-esophageal reflux disease without esophagitis; K90.0 Celiac disease; E13.43 Other specified diabetes mellitus with diabetic autonomic (poly)neuropathy | CPT/HCPCS: 99212 ==

== ENCOUNTER 2024-03-23 13:54 | Outpatient (AMB) | payer OTHER, SELFPAY ==
--- NOTE | 2024-03-24 15:08 | MHC.OFFVIS ---
Intake Visit Reasons: Setting adjustment/Device check Allergies empagliflozin Adverse Reaction (Intermediate, Verified 03/13/24 15:38) uti PFSH Medical History (Updated 03/13/24 @ 15:39 by VILMA Joe) Diastolic dysfunction Hypertension CKD stage 3 secondary to diabetes Gastroparesis due to secondary diabetes Bradycardia Burning with urination Encounter for monitoring anti-arrhythmic therapy Essential hypertension Abdominal bloating Small intestinal bacterial overgrowth Nausea and vomiting Dysphagia Periumbilical abdominal pain Globus sensation Orthostatic hypotension Presence of Watchman left atrial appendage closure device Subdural hematoma Syncope and collapse PAF (paroxysmal atrial fibrillation) Vitamin D deficiency Anxiety Depression Overweight (BMI 25.0-29.9) Dyslipidemia Non-toxic multinodular goiter Diabetic polyneuropathy associated with type 2 diabetes mellitus Diabetic retinopathy associated with type 2 diabetes mellitus Diabetes type 2, controlled Surgical History Hx of breast reduction, elective History of cholecystectomy H/O esophagogastroduodenoscopy Hx of colonoscopy History of gastric bypass History of gastric bypass Hx of hand surgery Family History Father CVD (cardiovascular disease) Mother Diabetes Social History Household Members: Spouse Alcohol intake: never Patient Tobacco Use Status: Former Tobacco user Tobacco use type: Cigarette Office Procedures Cardiac Device Check Cardiac Device Check Details: [employer] dual-chamber pacemaker interrogation today due to oversensing, far field sensing that is being incorrectly labeled as atrial flutter. [employer] rep present. PVAB to 150 milliseconds, decrease RR slope to 0, RA threshold 0.75 volts at 0.5 milliseconds, RV threshold 1 volt at 0.5 milliseconds, battery 9.5-10.3 years, V paced greater than 99% [id number] Cardiac Device Check, pacemaker dual lead Procedure code (CPT) selection complete Assessment & Plan Assessment & Plan (1) Pacemaker: Code(s): Z95.0 - Presence of cardiac pacemaker Category: Medical Plan: Device adjustment needed Coding Level of Care Code Procedure Only Diagnoses Pacemaker Z95.0 CPT Codes Cardiac Device Check - Cardiac Device 2: [id number] Cardiac Device Check, pacemaker dual lead ([id number])
== END 2024-03-23 14:04 | disposition home or self-care (01) ==
LOC: HO.HCS 13:54
PROVIDERS: PCP Internal Medicine; Visit Provider Nurse Practitioner Family
DX: Z45.018 Encounter for adjustment and management of other part of cardiac pacemaker (principal)
CPT/HCPCS: 93280

== ENCOUNTER → 2024-03-23 13:54 | Outpatient (BNVA) | payer OTHER, SELFPAY | PROVIDERS: PCP Internal Medicine; Visit Provider Nurse Practitioner Family | DX: Z45.018 Encounter for adjustment and management of other part of cardiac pacemaker (principal) | CPT/HCPCS: 93280 ==

== ENCOUNTER → 2024-04-23 23:59 | Outpatient (BNV) | payer OTHER, SELFPAY ==
--- NOTE | 2024-04-28 13:01 | A.OFFVIS_ITS ---
Intake Visit Reasons: Remote device check= [employer] Allergies empagliflozin Adverse Reaction (Intermediate, Verified 03/13/24 15:38) uti PFSH Medical History (Updated 03/13/24 @ 15:39 by VILMA Joe) Diastolic dysfunction Hypertension CKD stage 3 secondary to diabetes Gastroparesis due to secondary diabetes Bradycardia Burning with urination Encounter for monitoring anti-arrhythmic therapy Essential hypertension Abdominal bloating Small intestinal bacterial overgrowth Nausea and vomiting Dysphagia Periumbilical abdominal pain Globus sensation Orthostatic hypotension Presence of Watchman left atrial appendage closure device Subdural hematoma Syncope and collapse PAF (paroxysmal atrial fibrillation) Vitamin D deficiency Anxiety Depression Overweight (BMI 25.0-29.9) Dyslipidemia Non-toxic multinodular goiter Diabetic polyneuropathy associated with type 2 diabetes mellitus Diabetic retinopathy associated with type 2 diabetes mellitus Diabetes type 2, controlled Surgical History Hx of breast reduction, elective History of cholecystectomy H/O esophagogastroduodenoscopy Hx of colonoscopy History of gastric bypass History of gastric bypass Hx of hand surgery Family History Father CVD (cardiovascular disease) Mother Diabetes Social History Household Members: Spouse Alcohol intake: never Patient Tobacco Use Status: Former Tobacco user Tobacco use type: Cigarette Office Procedures Cardiac Device Check Cardiac Device Check Details: Date of service- 04/23/2024 ; Battery life >9 years; normal lead parameters; AP 97%; HEALTH INFORMATION TECH 80%; brief atrial tachycardia, but otherwise no significant arrhythmias. Overall normal device function. [id number] Cardiac Device Interrogation, pacemaker Procedure code (CPT) selection complete Assessment & Plan Assessment & Plan (1) Pacemaker: Code(s): Z95.0 - Presence of cardiac pacemaker Category: Medical (2) PAF (paroxysmal atrial fibrillation): Code(s): I48.0 - Paroxysmal atrial fibrillation Category: Medical (3) Bradycardia: Code(s): R00.1 - Bradycardia, unspecified Category: Medical Plan x Coding Level of Care Code Procedure Only Diagnoses Pacemaker Z95.0 PAF (paroxysmal atrial fibrillation) I48.0 Bradycardia R00.1 CPT Codes Cardiac Device Check - Cardiac Device 12: [id number] Cardiac Device Interrogation, pacemaker ([id number])
== END ==
PROVIDERS: PCP Internal Medicine; Visit Provider Internal Medicine
DX: I48.0 Paroxysmal atrial fibrillation (principal); Z95.0 Presence of cardiac pacemaker
CPT/HCPCS: 93294

== ENCOUNTER 2024-05-06 08:29 | Emergency (ER) | payer MEDICARE, MEDICAID, SELFPAY ==
--- NOTE | ~2024-05-06 | CT_ITS ---
EXAMINATION: CT HEAD WITHOUT CONTRAST CLINICAL INFORMATION: Mental status changes COMPARISON: Head CT of 10/11/2023 TECHNIQUE: Contiguous axial imaging was performed from the skull base to vertex without intravenous administration of contrast. This CT examination was performed using dose optimization techniques as appropriate, variously including the following: *Automated exposure control *Adjustment of mA and/or kV according to patient size (this includes techniques or standardized protocols for targeted exams where dose is matched to indication/reason for exam; i.e. extremities or head) *Use of iterative reconstruction technique DLP: 606 mGy-cm FINDINGS: The ventricles and sulci are normal in size and configuration. No acute hemorrhage, mass effect or shift is evident. Ware-white differentiation is maintained. In the posterior fossa, the brainstem, cerebellum and fourth ventricle image normally. The orbits and calvarium are intact. The paranasal sinuses and mastoid air cells are well pneumatized and clear. CT/CT head/brain wo IV con IMPRESSION: 1. Unremarkable noncontrast brain CT. No acute hemorrhage, mass effect or shift. Electronically signed by: Hayden Duarte MD 05/06/2024 10:21 AM [facility]
[2024-05-06 08:41] VITALS: BP 148/57; PULSE 80; RESP 16; TEMP 36.6; O2SAT 100; BMI 26.4
[2024-05-06 09:06] LABS: Glucose, Whole Blood 260 mg/dL (60-115)
--- NOTE | 2024-05-06 09:18 | ED.GENADULT ---
HPI - General Adult General Chief complaint: Altered Mental Status Stated complaint: High blood sugar Time Seen by Provider: 05/06/24 09:00 Source: patient and family Mode of arrival: ambulatory History of Present Illness HPI narrative: This is 68 years old patient she has history of type 2 diabetes, history of hypertension, recurrent UTI presented to the emergency department brought by the daughter because elevated blood sugar generalized weakness no taking care of herself. Onset (ago): week(s) Radiation: non-radiation Severity: mild Relieving factors: none Exacerbating factors: none Related Data Home Medications ?Medication ?Instructions ?Recorded ?Confirmed calcium 600 mg (as 1 tab PO BID 03/09/20 01/15/24 carbonate)-vitamin D3 10 mcg (400 unit) tablet ferrous sulfate 325 mg (65 mg 325 mg PO BID 03/09/20 01/15/24 iron) tablet oxybutynin chloride 5 mg tablet 5 mg PO BID 03/09/20 01/15/24 trazodone 100 mg tablet 100 mg PO BEDTIME PRN Sleep 03/09/20 01/15/24 aspirin 81 mg tablet,delayed 81 mg PO DAILY 11/21/22 01/15/24 release (Adult Aspirin Regimen) escitalopram oxalate 20 mg tablet 20 mg PO DAILY 05/30/23 01/15/24 meclizine 25 mg tablet 25 mg PO DAILY PRN Dizziness 06/27/23 01/15/24 multivitamin 1 tab PO DAILY 07/26/23 01/15/24 lancets 28 gauge (FreeStyle #100 ea 10/18/23 01/15/24 Lancets) insulin glargine 100 unit/mL (3 20 unit subcut QA 02/20/24 02/20/24 mL) subcutaneous pen (Lantus Solostar U-100 Insulin) Previous Rx's ?Medication ?Instructions ?Recorded blood-glucose meter (FreeStyle #1 ea 09/29/20 Lite Meter kit) Bacillus coagulans 800 million See Rx Instructions PO .COMPLEX 30 06/09/21 cell tablet (Digestive Advantage days #30 tabs Probiotics-Prebiotic) atorvastatin 80 mg tablet 80 mg PO BEDTIME #30 tabs 10/03/21 blood sugar diagnostic (FreeStyle #200 ea 10/04/21 Lite Strips) cholecalciferol (vitamin D3) 50 50 mcg PO DAILY #90 caps 01/08/22 mcg (2,000 unit) capsule diabetic shoes #1 ea 04/05/22 sennosides 8.6 mg tablet (senna) 17.2 mg (2 x 8.6 mg) PO BEDTIME 08/09/22 PRN for constipation #60 tabs diabetic shoes #1 ea 12/21/22 flecainide 50 mg tablet 50 mg PO Q12H #180 tabs 08/26/23 metoprolol succinate 25 mg 25 mg PO DAILY #90 tabs 09/23/23 tablet,extended release 24 hr linaclotide 145 mcg capsule 145 mcg PO QAM #30 caps 10/25/23 (Linzess) blood-glucose meter,continuous #1 ea 11/05/23 (FreeStyle Zunilda 3 Keeling) blood-glucose sensor (FreeStyle #2 ea 11/05/23 Zunilda 3 Sensor device) rabeprazole 20 mg tablet,delayed 20 mg PO BID #180 tabs 11/22/23 release aluminum-mag hydroxide-simethicone 10 ml PO QID PRN chest pain #3,000 12/06/23 400 mg-400 mg-40 mg/5 mL oral susp mL (Mylanta Maximum Strength) famotidine 40 mg tablet (Pepcid) 40 mg PO BEDTIME 30 days #30 tabs 12/06/23 metoclopramide HCl 5 mg tablet 5 mg PO QID #120 tabs 12/06/23 metformin 1,000 mg tablet 1,000 mg PO BID 90 days #180 tabs 02/25/24 amlodipine 5 mg tablet 5 mg PO DAILY #90 tabs 04/14/24 dicyclomine 20 mg tablet 20 mg PO QID #360 tabs 04/14/24 simethicone 180 mg capsule 180 mg PO TID #90 caps 04/14/24 furosemide 20 mg tablet 20 mg PO DAILY weight gain #90 tabs 04/21/24 cephalexin 500 mg capsule 500 mg PO Q8H #21 caps 05/06/24 Allergies Allergy/AdvReac Type Severity Reaction Status Date / Time empagliflozin AdvReac Intermediate uti Verified 05/06/24 08:45 Review of Systems Cardiovascular: Cardiovascular: Reports no additional cardiovascular complaints Respiratory: Respiratory: Reports no additional respiratory complaints Gastrointestinal: Gastrointestinal: Reports no additional gastrointestinal complaints PMFSH Past Medical History Attestation statement: The following information was validated with the patient. Medical History Diastolic dysfunction Hypertension CKD stage 3 secondary to diabetes Gastroparesis due to secondary diabetes Bradycardia Burning with urination Encounter for monitoring anti-arrhythmic therapy Essential hypertension Abdominal bloating Small intestinal bacterial overgrowth Nausea and vomiting Dysphagia Periumbilical abdominal pain Globus sensation Orthostatic hypotension Presence of Watchman left atrial appendage closure device Subdural hematoma Syncope and collapse PAF (paroxysmal atrial fibrillation) Vitamin D deficiency Anxiety Depression Overweight (BMI 25.0-29.9) Dyslipidemia Non-toxic multinodular goiter Diabetic polyneuropathy associated with type 2 diabetes mellitus Diabetic retinopathy associated with type 2 diabetes mellitus Diabetes type 2, controlled Surgical History Hx of breast reduction, elective History of cholecystectomy H/O esophagogastroduodenoscopy Hx of colonoscopy History of gastric bypass History of gastric bypass Hx of hand surgery Family History Family History Father CVD (cardiovascular disease) Mother Diabetes Social History Social History Household Members: Spouse Alcohol intake: never Patient Tobacco Use Status: Former Tobacco user Tobacco use type: Cigarette Smoked in Last 30 Days: Yes Use of substances other than those prescribed or required for medical reasons: No Advance Directives: No Advance Directives Information Provided: Yes Physical Exam ED Vital Signs: Vital Signs - 24 hr 05/06/24 08:41 05/06/24 10:12 Temperature 98 F 97.8 F Pulse Rate 80 59 Respiratory Rate 16 16 Blood Pressure 148/57 H 140/56 H Pulse Oximetry 100 99 Oxygen Delivery Method Room Air Room Air BMI result Body Mass Index 26.4 Patient is not in acute distress Const General: cooperative Nutritional Appearance: well nourished Orientation/consciousness: oriented to person, oriented to place and patient oriented x3 Limitations: no limitations HENMT Head: Yes normal to inspection General nose exam: Normal external nose present Face and sinus: Yes normal facial exam Mouth: Normal oral and palatal mucosa present Neck Neck: Yes normal visual inspection Thyroid: Thyroid normal Resp Effort & Inspection: normal respiratory effort Auscultation: clear to auscultation bilaterally Cardio Jugular venous distension: no JVD Palpation: normal PMI Rate: regular rate Rhythm: regular rhythm GI Inspection: Yes normal to inspection Palpation (GI): Soft to palpation, not firm, nontender and no guarding Percussion: Yes normal to percussion Auscultation: normal bowel sounds Back/Spine/Pelvis Cervical Spine: normal cervical lordosis Pelvis: no pain with anterior-posterior compression Skin General skin exam: no rashes or lesions noted Lesions: no lesions Rashes: no rashes Trauma: no lacerations or abrasions Neuro General: oriented to person, oriented to place and patient oriented x3 Cranial nerves: Yes CN's II-XII intact bilaterally Cognition (Neuro): normal cognition Motor exam (neuro): 5/5 motor strength present throughout Coordination: [id number] test normal Course Reevaluation(s) Reevaluation #1: Workup completed a picture consistent with UTI, white count is normal blood sugar was 213, she has an normal anion gap, head CT negative discussed with patient and daughter patient will be discharged home on p.o. antibiotic and family is very comfortable with the plan of care Time: 11:07 Medications Administered Discontinued Medications Generic Name Dose Route Start Last Admin Trade Name Freq PRN Reason Stop Dose Admin Sodium Chloride 1,000 mls @ 999 mls/hr 05/06/24 09:30 05/06/24 09:59 Ns IVCONT 05/06/24 10:30 999 mls/hr .Q1H1M [facility] Administration Medical Decision Making Medical Decision Making [facility] Narrative: Patient here with elevated blood sugar and deterioration of the your condition, her vital signs stable over we get fluids lab Differential Diagnosis Differential Diagnoses: The differential diagnosis associated with the presentation includes This could be DKA/hyponatremia/hypernatremia/uinary tract infection is in the differential Admission/Observation Consideration of admission/observation: Escalation of care including admission/observation considered Lab Data [facility] Lab Attestation statement: I reviewed the patient's lab results. 05/06/24 09:48 05/06/24 09:48 Labs: Lab Results 05/06/24 05/06/24 05/06/24 Range/Units 09:00 09:48 09:52 WBC 5.4 (4.8-10.8) X10*3/uL RBC 4.15 L (4.20-5.50) X10*6/uL Hgb 12.9 D (12.0-16.0) g/dl Hct 36.6 L (37.0-47.0) % MCV 88.2 (80.0-98.0) fL MCH 31.1 (27.0-33.0) pg MCHC 35.2 H (31.0-35.0) g/dl RDW 12.4 (11.0-16.0) % Plt Count 148 L D (160-400) X10*3/uL MPV 9.7 (9.4-12.3) fL Immature Gran % (Auto) 0.2 (0.0-0.4) % Neut % (Auto) 75.4 H (45-73) % Lymph % (Auto) 16.0 L (20-40) % [place] % (Auto) 6.9 (2-11) % Eos % (Auto) 1.3 (0-4) % Baso % (Auto) 0.2 (0-2) % Lymph # (Auto) 0.9 L (1.2-4.9) X10*3/uL [place] # (Auto) 0.4 (0.1-1.2) X10*3/uL Eos # (Auto) 0.1 (0.0-0.4) X10*3/uL Baso # (Auto) 0.0 (0.0-0.2) X10*3/uL Abs Immat Gran (auto) 0.01 (0.00-0.03) X10*3/uL Absolute Neuts (auto) 4.1 (2.0-8.3) x10*3/uL Absolute Nucleated RBC 0.000 (0.0-0.012) X10*3/uL Nucleated RBC % (auto) 0.0 (0.0-0.2) /100WBC VBG pH 7.41 (7.32-7.43) VBG pCO2 39 mmHg VBG pO2 110 mmHg VBG HCO3 25 (22-26) mmol/L VBG O2 Saturation 99.0 % VBG Base Excess 1.3 mmol/L Sodium 136 (135-145) mmol/L Potassium 4.6 (3.3-5.1) mmol/L Chloride 104 (96-108) mmol/L Carbon Dioxide 25 (22-29) mmol/L Anion Gap 12 (12-20) BUN 27 H (9-16) mg/dL Creatinine 1.15 (0.5-1.4) mg/dL Estim Creat Clear Calc 49.6 Estimated GFR 47 POC Glucose 260 H (60-115) mg/dL Random Glucose 213 H (60-115) mg/dL Calcium 8.6 (8.4-10.2) mg/dL Magnesium 1.7 (1.6-2.6) mg/dL Total Bilirubin 0.4 (0.0-1.0) mg/dL AST 46 H (5-31) U/L ALT 90 H (0-31) U/L Alkaline Phosphatase 70 (39-117) U/L Troponin I High Sens 14.4 D (<3.5-17.0) ng/L Total Protein 6.8 (6.5-8.0) g/dL Albumin 3.7 (3.5-5.0) g/dL Beta-Hydroxybutyrate 0.12 (0.02-0.27) mmol/L TSH 0.35 (0.32-4.0) uIU/mL Urine Color Yellow Urine Appearance Cloudy Urine pH 6.0 (5.0-9.0) Ur Specific [place] 1.015 (1.005-1.025) Urine Protein Negative (Neg-Trace) mg/dL Urine Glucose (UA) 500 H (Negative) mg/dL Urine Ketones Negative (Negative) mg/dL Urine Blood Negative (Negative) Urine Nitrite Negative (Negative) Ur Leukocyte Esterase Moderate (2+) H (Negative) Urine RBC 0-2 (0-2) /HPF Urine WBC >50 H (0-5) /HPF Ur Squamous Epith Cells 0-2 (0-2) /HPF Urine Bacteria 4+ (None Seen) Hyaline Casts 0-2 (0-2) /LPF Urine Opiates Screen Not Detected (Not Detect) Ur Buprenorphine Scrn Not Detected (Not Detect) ng/mL Ur Oxycodone Screen Not Detected (Not Detect) ng/mL Urine Methadone Screen Not Detected (Not Detect) ng/mL Urine Fentanyl Screen Not Detected (Not Detect) Ur Barbiturates Screen Not Detected (Not Detect) Ur Phencyclidine Scrn Not Detected (Not Detect) Ur Amphetamines Screen Not Detected (Not Detect) U Benzodiazepines Scrn Not Detected (Not Detect) Urine Cocaine Screen Not Detected (Not Detect) U Marijuana (THC) Screen Not Detected (Not Detect) Independent Interpretation I performed an independent interpretation of an: CT Scan Radiology Impression Discussion of test interpretation with radiology: I discussed test interpretation with the radiologist and I have reviewed the radiologist's reading. Independent Historian Clinical information obtained from an independent historian. History obtained from or confirmed by: Other (daughter) External Record Review External record reviewed: Inpatient record Prescription Management I considered prescription management with: Antibiotic Chronic Conditions Patient?s care impacted by: Diabetes Discharge Plan Discharge Clinical Impression: Acute UTI Patient Disposition: Home, Self-Care Instructions: Urinary Tract Infection in Women (DC) Additional Instructions: Follow-up with your primary care physician we sent a prescription for you for antibiotic to [facility] Prescriptions: New cephalexin 500 mg capsule 500 mg PO Q8H Qty: 21 0RF No Action (DME) blood-glucose meter [FreeStyle Lite Meter] Kit See Rx Instructions miscellaneous .MEDSUPPLY Qty: 1 0RF Rx Instructions: Twice a day Digestive Advantage Probio-Pre 800 million cell tablet See Rx Instructions PO .COMPLEX 30 Days Qty: 30 3RF Rx Instructions: 1 tab po qd PO; atorvastatin 80 mg tablet 80 mg PO BEDTIME Qty: 30 11RF (DME) FreeStyle Lite Strips Strip See Rx Instructions .MEDSUPPLY Qty: 200 10RF Rx Instructions: 2times a day cholecalciferol (vitamin D3) 50 mcg (2,000 unit) capsule 50 mcg PO DAILY Qty: 90 4RF (DME) diabetic shoes See Rx Instructions .ROUTE .MEDSUPPLY Qty: 1 0RF Rx Instructions: extra depth orthopedic shoes ( 1 pair ) with customize heat molded multi density inner soles ( 3 pair) Dispense 1 Sig: As directed DX: And IDDM /polyneuropathy ( E11 0.42 ); hammertoe foot deformity ( M 20.41, and 20.42 ) pre ulcerative skin lesion ( L 85.1 ) Diagnosis ( E11 0.42 ) type 2 diabetes with polyneuropathy sennosides [senna] 8.6 mg tablet 17.2 mg PO BEDTIME PRN (Reason: for constipation) Qty: 60 0RF aspirin [Adult Aspirin Regimen] 81 mg tablet,delayed release (DR/EC) 81 mg PO DAILY flecainide 50 mg tablet 50 mg PO Q12H Qty: 180 3RF metoprolol succinate 25 mg tablet extended release 24 hr 25 mg PO DAILY Qty: 90 3RF Linzess 145 mcg capsule 145 mcg PO QAM Qty: 30 6RF (DME) FreeStyle Zunilda 3 Keeling Misc See Rx Instructions .Route Qty: 1 0RF Rx Instructions: As directed (DME) FreeStyle Zunilda 3 Sensor Device See Rx Instructions .Route Qty: 2 11RF Rx Instructions: every 14 days rabeprazole 20 mg tablet,delayed release (DR/EC) 20 mg PO BID Qty: 180 2RF metformin 1,000 mg tablet 1,000 mg PO BID 90 Days Qty: 180 1RF dicyclomine 20 mg tablet 20 mg PO QID Qty: 360 1RF simethicone 180 mg capsule 180 mg PO TID Qty: 90 6RF amlodipine 5 mg tablet 5 mg PO DAILY Qty: 90 3RF furosemide 20 mg tablet 20 mg PO DAILY Qty: 90 3RF Rx Instructions: take as needed for weight gain of 3 lbs over night until at baseline weight. ferrous sulfate 325 mg (65 mg iron) tablet 325 mg PO BID calcium carbonate-vitamin D3 600 mg(1,500mg) -400 unit tablet 1 tab PO BID trazodone 100 mg tablet 100 mg PO BEDTIME PRN (Reason: Sleep) oxybutynin chloride 5 mg tablet 5 mg PO BID (DME) diabetic shoes See Rx Instructions .ROUTE .MEDSUPPLY Qty: 1 0RF Rx Instructions: extra depth orthopedic shoes ( 1 pair ) with customize heat molded multi density inner soles ( 3 pair) Dispense 1 Sig: As directed DX: And IDDM /polyneuropathy ( E11 0.42 ); hammertoe foot deformity ( M 20.41, and 20.42 ) pre ulcerative skin lesion ( L 85.1 ) Diagnosis ( E11 0.42 ) type 2 diabetes with polyneuropathy escitalopram oxalate 20 mg tablet 20 mg PO DAILY meclizine 25 mg tablet 25 mg PO DAILY PRN (Reason: Dizziness) multivitamin Tablet 1 tab PO DAILY (DME) lancets [FreeStyle Lancets] 28 gauge misc See Rx Instructions .ROUTE .MEDSUPPLY Qty: 100 Rx Instructions: As directed famotidine [Pepcid] 40 mg tablet 40 mg PO BEDTIME 30 Days Qty: 30 6RF metoclopramide HCl 5 mg tablet 5 mg PO QID Qty: 120 6RF alum-mag hydroxide-simeth [Mylanta Maximum Strength] 400-400-40 mg/5 mL suspension 10 ml PO QID PRN (Reason: chest pain) Qty: 3000 3RF insulin glargine [Lantus Solostar U-100 Insulin] 100 unit/mL (3 mL) insulin pen 20 unit subcut QAM Referrals: Cherrie Gómez MD [Primary Care Provider] - 2 days Print Language: Monegasque
--- NOTE | 2024-05-06 09:50 | MHC.EDTECH ---
Blood work was done send to the lab and waiting for the result, Hourly round, vitals and POC complected (RN aware), patient resting quietly in her bed within call belt in reach.
[2024-05-06 09:54] LABS: MANUAL DIFF FLAG NO
[2024-05-06 09:56] LABS: Basophils Percent Auto 0.2 % (0-2); Eosinophils Absolute Auto 0.1 X10*3/uL (0.0-0.4); Eosinophils Percent Auto 1.3 % (0-4); Hematocrit 36.6 % (37.0-47.0); Hemoglobin 12.9 g/dl (12.0-16.0); Imm Gran Abs Auto 0.01 X10*3/uL (0.00-0.03); Imm Gran Pct Auto 0.2 % (0.0-0.4); Lymphocytes Absolute Auto 0.9 X10*3/uL (1.2-4.9); Mean Corpuscular HGB Conc 35.2 g/dl (31.0-35.0); Mean Corpuscular Hemoglobin 31.1 pg (27.0-33.0); Mean Corpuscular Volume 88.2 fL (80.0-98.0); Mean Platelet Volume 9.7 fL (9.4-12.3); Monocytes Absolute Auto 0.4 X10*3/uL (0.1-1.2); Monocytes Percent Auto 6.9 % (2-11); Neutrophils Absolute Auto 4.1 x10*3/uL (2.0-8.3); Neutrophils Percent Auto 75.4 % (45-73); Platelet Count 148 X10*3/uL (160-400); Red Blood Count 4.15 X10*6/uL (4.20-5.50); Red Cell Distribution Width 12.4 % (11.0-16.0); White Blood Count 5.4 X10*3/uL (4.8-10.8)
[2024-05-06 09:57] LABS: VBG Base Excess 1.3 mmol/L; VBG HCO3 25 mmol/L (22-26); VBG pCO2 39 mmHg; VBG pH 7.41 (7.32-7.43); VBG pO2 110 mmHg
[2024-05-06 09:57] LABS: Venous Blood Gas Refer to POC result
[2024-05-06 09:58] LABS: Appearance Urine Cloudy; Color Urine Yellow; Glucose Urine UA 500 mg/dL (Negative); Leukocyte Esterase Urine Moderate (2+) (Negative); Nitrite Urine Negative (Negative); Specific Gravity - Urine 1.015 (1.005-1.025); UMIC TRIGGER UACC YES; Urine Blood Negative (Negative); Urine Ketones Negative (Negative); Urine Protein Negative (Neg-Trace)
[2024-05-06] MEDS: 0.9 % Sodium Chloride 1,000 ML 999 ML IVCONT (09:59)
[2024-05-06 10:04] LABS: Bacteria Urine 4+ (None Seen); Hyaline Casts Urine 0-2 /LPF (0-2); RBC Urine 0-2 /HPF (0-2); Squamous Epithelial Cell Urine 0-2 /HPF (0-2); UACC Culture Trigger YES; WBC Urine >50 /HPF (0-5)
[2024-05-06 10:08] LABS: Amphetamine Screen Urine Not Detected (Not Detect); Barbiturates, Urine Not Detected (Not Detect); Benzodiazepines Screen Urine Not Detected (Not Detect); Buprenorphine Scr Not Detected (Not Detect); Cannabinoid Screen Urine Not Detected (Not Detect); Cocaine Screen Urine Not Detected (Not Detect); Fentanyl, urine Not Detected (Not Detect); Methadone Screen, Urine Not Detected (Not Detect); Opiate Screen Urine Not Detected (Not Detect); Oxycodone Screen Urine Not Detected (Not Detect); Phencyclidine Screen Urine Not Detected (Not Detect)
[2024-05-06 10:09] LABS: Alanine Aminotransferase 90 U/L (0-31); Albumin Level 3.7 g/dL (3.5-5.0); Alkaline Phosphatase 70 U/L (39-117); Anion Gap 12 (12-20); Aspartate Amino Transferase 46 U/L (5-31); Bilirubin Total 0.4 mg/dL (0.0-1.0); Blood Urea Nitrogen 27 mg/dL (9-16); Calcium 8.6 mg/dL (8.4-10.2); Carbon Dioxide 25 mmol/L (22-29); Chloride 104 mmol/L (96-108); Creatinine Clr Calc Pharmacy 49.6; Estimated Glomerular Filt Rate 47; Glucose Random 213 mg/dL (60-115); Magnesium 1.7 mg/dL (1.6-2.6); Potassium 4.6 mmol/L (3.3-5.1); Sodium 136 mmol/L (135-145); Total Protein 6.8 g/dL (6.5-8.0)
[2024-05-06 10:12] VITALS: BP 140/56; PULSE 59; RESP 16; TEMP 36.6; O2SAT 99
[2024-05-06 10:16] LABS: Troponin-I High Sensitivity 14.4 ng/L (<3.5-17.0)
[2024-05-06 10:19] LABS: Beta-Hydroxybutyrate 0.12 mmol/L (0.02-0.27)
[2024-05-06 10:30] LABS: TSH reflex Free T4 0.35 uIU/mL (0.32-4.0)
[2024-05-06 11:18] VITALS: BP 141/55; PULSE 60; RESP 20; TEMP 36.6; O2SAT 100
== END 2024-05-06 11:19 | disposition home or self-care (01) ==
PROVIDERS: Physician Assistant Medical; Emergency Provider Emergency Medicine; PCP Internal Medicine
DX: N39.0 Urinary tract infection, site not specified (principal); R41.82 Altered mental status, unspecified; E11.9 Type 2 diabetes mellitus without complications; Z51.81 Encounter for therapeutic drug level monitoring; Z79.899 Other long term (current) drug therapy; Z79.4 Long term (current) use of insulin
CPT/HCPCS: 36415; 70450; 80053; 80307; 81001; 82010; 82803; 82947; 83735; 84443; 84484; 85025; 87086; 87088; 87186; 96360; 99284

== ENCOUNTER 2024-05-18 | Outpatient (REF) | payer MEDICARE, MEDICAID, SELFPAY ==
[2024-05-19 13:16] LABS: Bacterial Vaginosis PCR NEGATIVE (Negative); Candida Group PCR DETECTED (Not Detect); Candida glab krusei PCR DETECTED (Not Detect); Trichomonas vaginalis PCR NOT DETECTED (Not Detect)
== END 2024-05-18 00:01 | disposition home or self-care (01) ==
LOC: HO.LNP
PROVIDERS: Visit Provider General Practice
DX: R39.9 Unspecified symptoms and signs involving the genitourinary system (principal)
CPT/HCPCS: 0352U

== ENCOUNTER 2024-05-25 14:43 | Outpatient (AMB) | payer OTHER, SELFPAY ==
[2024-05-25 15:01] VITALS: BP 140/60; PULSE 60; BMI 26.3
--- NOTE | 2024-05-25 15:01 | A.OFFVIS_ITS ---
Vital Signs 05/25/24 15:01 Height 5 ft 6 in Weight 163 lb BMI 26.3 BP 140/60 H Blood Pressure Location Rt brachial Pulse 60 Intake Visit Reasons: f/up w/ st derrell ck Allergies empagliflozin Adverse Reaction (Intermediate, Verified 05/25/24 15:01) uti Medication List - Last Reconciled 05/25/24 by Surjit Anthony MD alum-mag hydroxide-simeth 400-400-40 mg/5 mL (Mylanta Maximum Strength) 10 mL PO QID PRN amlodipine 5 mg PO DAILY aspirin (Adult Aspirin Regimen) 81 mg PO DAILY atorvastatin 80 mg PO BEDTIME Bacillus coagulans (Digestive Advantage Probiotics-Prebiotic) 1 tab po qd PO; 30 days blood sugar diagnostic (FreeStyle Lite Strips) 2times a day blood-glucose meter (FreeStyle Lite Meter kit) Twice a day blood-glucose meter,continuous (FreeStyle Zunilda 3 [place]) As directed blood-glucose sensor (FreeStyle Zunilda 3 Sensor device) every 14 days calcium carbonate-vitamin D3 600 mg-10 mcg (400 unit) 1 tab PO BID cholecalciferol (vitamin D3) 50 mcg PO DAILY [diabetic shoes extra depth orthopedic shoes ( 1 pair ) with customize heat molded multi density inner soles ( 3 pair) Dispense 1 Sig: As directed DX: And IDDM /polyneuropathy ( E11 0.42 ); hammertoe foot deformity ( M 20.41, and 20.42 ) pre ulcerative skin lesion ( L 85.1 ) Diagnosis ( E11 0.42 ) type 2 diabetes with polyneuropathy] [diabetic shoes extra depth orthopedic shoes ( 1 pair ) with customize heat molded multi density inner soles ( 3 pair) Dispense 1 Sig: As directed DX: And IDDM /polyneuropathy ( E11 0.42 ); hammertoe foot deformity ( M 20.41, and 20.42 ) pre ulcerative skin lesion ( L 85.1 ) Diagnosis ( E11 0.42 ) type 2 diabetes with polyneuropathy] dicyclomine 20 mg PO QID escitalopram oxalate 20 mg PO DAILY famotidine (Pepcid) 40 mg PO BEDTIME 30 days ferrous sulfate 325 mg PO BID flecainide 50 mg PO Q12H furosemide 20 mg PO DAILY insulin glargine (Lantus Solostar U-100 Insulin) 20 units subcut QAM lancets (FreeStyle Lancets) As directed linaclotide (Linzess) 145 mcg PO QAM meclizine 25 mg PO DAILY PRN metformin 1,000 mg PO BID 90 days metoclopramide HCl 5 mg PO QID metoprolol succinate ER 25 mg PO DAILY multivitamin 1 tab PO DAILY oxybutynin chloride 5 mg PO BID rabeprazole 20 mg PO BID sennosides (senna) 17.2 mg (2 x 8.6 mg) PO BEDTIME PRN simethicone 180 mg PO TID trazodone 100 mg PO BEDTIME PRN HPI Comments Details: Dana returns for follow-up regarding various cardiac issues. To recall, she has a history of atrial fibrillation. She also has orthostatic hypotension. In the past, she had a fall leading to subdural hemorrhage. She was taking Eliquis but because of intracranial hemorrhage she went for Watchman device placement. She seems to be stable in that regard. With regard to orthostatic hypotension she was taking midodrine. However blood pressures rather started going up and hence Midodrine was stopped and amlodipine started. Otherwise, various complaints like fatigue, dizziness with changing positions and walking led to a stress test which revealed chronotropic incompetence. Following this, referred to EP and she underwent a pacemaker placement 2 weeks ago. She states she is feeling good. At least some subjective improvement after the procedure. She is here today with a daughter. Daughter states that patient is not taking care of herself and doing things like smoking, alcohol excess, junk food extra. There has been weight gain but it seems more so from gaining fatty weight as opposed to fluid. She was put on diuretics as well in the past because of question of congestive heart failure but daughter feels that lot of the weight gain may be because of a lifestyle and fatty weight gain rather. Hence she is questioning if diuretics are necessary. Otherwise, from a patient perspective, she states she feels good. No cardiac complaints whatsoever. [facility]LY [facility] Medical History Diastolic dysfunction Hypertension CKD stage 3 secondary to diabetes Gastroparesis due to secondary diabetes Bradycardia Burning with urination Encounter for monitoring anti-arrhythmic therapy Essential hypertension Abdominal bloating Small intestinal bacterial overgrowth Nausea and vomiting Dysphagia Periumbilical abdominal pain Globus sensation Orthostatic hypotension Presence of Watchman left atrial appendage closure device Subdural hematoma Syncope and collapse PAF (paroxysmal atrial fibrillation) Vitamin D deficiency Anxiety Depression Overweight (BMI 25.0-29.9) Dyslipidemia Non-toxic multinodular goiter Diabetic polyneuropathy associated with type 2 diabetes mellitus Diabetic retinopathy associated with type 2 diabetes mellitus Diabetes type 2, controlled Surgical History Hx of breast reduction, elective History of cholecystectomy H/O esophagogastroduodenoscopy Hx of colonoscopy History of gastric bypass History of gastric bypass Hx of hand surgery Family History Father CVD (cardiovascular disease) Mother Diabetes Social History Household Members: Spouse Alcohol intake: never Patient Tobacco Use Status: Former Tobacco user Tobacco use type: Cigarette Review of Systems Const All systems reviewed & are unremarkable except as noted in HPI and below Reports as per HPI and Reports no additional complaints Eyes Reports as per HPI and Denies no additional complaints ENT Denies no additional complaints and Reports as per HPI Card Details: no chest pain Reports as per HPI, Reports no additional complaints, Denies acrocyanosis, Denies chest pain, Denies leg edema, Denies lightheadedness, Denies palpitations and Denies dyspnea Resp Reports as per HPI, Denies no additional complaints and Denies dyspnea GI Reports as per HPI and Denies no additional complaints Reports as per HPI Musc Reports no additional complaints and Reports as per HPI Skin/Breast Reports system reviewed and no additional complaints, except as documented Neuro Reports no additional complaints and Reports as per HPI Psych Reports no additional complaints and Reports as per HPI Endo Reports no additional complaints, Reports as per HPI and Denies palpitations Von/Lymph Reports no additional complaints and Reports as per HPI Aller/Immun Reports no additional complaints and Reports as per HPI Physical Exam Vital Signs: Last Vital Signs Pulse 60 05/25/24 15:01 BP 140/60 H 05/25/24 15:01 BMI result Body Mass Index 26.3 Const General: comfortable and no acute distress Orientation/consciousness: patient oriented x3 HEENT Other: Unremarkable Head: Yes normal to inspection Neck Neck: Yes normal visual inspection Chest Chest palpation & inspection: normal inspection of the chest Resp Auscultation: clear to auscultation bilaterally Cardio Palpation: normal PMI Heart sounds: S1 normal heart sound present, S2 normal heart sound present, no gallops, no murmurs and no rubs GI Palpation (GI): Soft to palpation Back/Spine/Pelvis Other: unremarkable Skin General skin exam: no rashes or lesions noted Neuro General: patient oriented x3 Extrem General: Yes normal to inspection Psych Mental Status: mental status grossly normal Office Procedures Cardiac Device Check Cardiac Device Check Details: Pacemaker interrogated today. Dual-chamber device. Programmed DDDR. Battery status 9.4 years. Normal lead parameters. Atrial pacing 86%. Ventricular pacing 55%. Due to far field R sensing, atrial sensitivity has been changed. Hence reported atrial fibrillation episodes could be all from far field sensing. Will need to monitor. Currently, reported burden less than 1%. Otherwise, overall normal device function. 34935-[id number] Cardiac Device Check, pacemaker dual lead Procedure code (CPT) selection complete EKG Details: EKG shows atrial sensed, ventricular paced rhythm at 60/Min. [id number], Complete Assessment & Plan Assessment & Plan (1) PAF (paroxysmal atrial fibrillation): Code(s): I48.0 - Paroxysmal atrial fibrillation Category: Medical Plan: Stable on beta-blockers and flecainide and okay to continue. (2) Presence of Watchman left atrial appendage closure device: Code(s): Z95.818 - Presence of other cardiac implants and grafts Category: Medical Plan: Due to fall, subdural hemorrhage while on anticoagulation, she is now status post Watchman device. Continue Aspirin. (3) Chronic diastolic (congestive) heart failure: Code(s): I50.32 - Chronic diastolic (congestive) heart failure Category: Medical Plan: Echocardiogram had grade 3 diastolic dysfunction. Preserved LVEF. She is on diuretics but daughter states that patient has been leading a healthy lifestyle and eating junk foods extra and hence gaining rather fatty weight. Hence may not need diuretics. Advised him that we could interrupt and see how she does. Daughter will speak to the visiting nurse. (4) Orthostatic hypotension: Code(s): I95.1 - Orthostatic hypotension Category: Medical Plan: She is off midodrine. No recent issues. (5) Abnormal EKG: Code(s): R94.31 - Abnormal electrocardiogram [ECG] [EKG] Category: Medical Plan: T-wave inversions could be related to pacemaker memory. She has got no cardiac symptoms whatsoever. Most recently, perfusion imaging from 12/07/2023 was unremarkable. (6) Chronotropic incompetence: Code(s): I45.89 - Other specified conduction disorders Category: Medical Plan: Status post pacemaker. Rate response settings have been adjusted in the past. Plan Discussed with daughter who came for appointment. She agrees with plan and will keep us updated as necessary. Coding Level of Care Code Est Pt Level 4 (93556) Diagnoses PAF (paroxysmal atrial fibrillation) I48.0 Presence of Watchman left atrial appendage closure device Z95.818 Chronic diastolic (congestive) heart failure I50.32 Orthostatic hypotension I95.1 Abnormal EKG R94.31 Chronotropic incompetence I45.89 CPT Codes Cardiac Device Check - Cardiac Device 2: 50919-LV Cardiac Device Check, pacemaker dual lead ([id number]) EKG - CPT: 72294-[id number], Complete ([id number])
== END 2024-05-25 15:37 | disposition home or self-care (01) ==
PROVIDERS: PCP Internal Medicine; Visit Provider Internal Medicine
DX: I48.0 Paroxysmal atrial fibrillation (principal); Z95.818 Presence of other cardiac implants and grafts; I50.32 Chronic diastolic (congestive) heart failure; I95.1 Orthostatic hypotension; R94.31 Abnormal electrocardiogram [ECG] [EKG]; I45.89 Other specified conduction disorders
CPT/HCPCS: 93010; 93280; 99214

== ENCOUNTER → 2024-05-25 14:43 | Outpatient (BNVA) | payer OTHER, SELFPAY | PROVIDERS: PCP Internal Medicine; Visit Provider Internal Medicine | DX: Z45.018 Encounter for adjustment and management of other part of cardiac pacemaker (principal); I48.0 Paroxysmal atrial fibrillation; I50.32 Chronic diastolic (congestive) heart failure; I95.1 Orthostatic hypotension; I45.89 Other specified conduction disorders; I45.4 Nonspecific intraventricular block; R94.31 Abnormal electrocardiogram [ECG] [EKG]; Z95.818 Presence of other cardiac implants and grafts | CPT/HCPCS: 93005; 93280; 99212 ==

== ENCOUNTER 2024-06-02 16:15 | Outpatient (AMB) | payer MEDICAID, SELFPAY ==
--- NOTE | 2024-06-02 16:18 | A.OFFVIS_ITS ---
Vital Signs 06/02/24 16:28 Height 5 ft 6 in Weight 163 lb 2.273 oz BMI 26.3 BP 112/76 Blood Pressure Location Rt brachial Position Sitting Pulse 106 H Pulse Source Pulse Oximeter Intake Visit Reasons: T2DM Intake Note: Patient presents today for a follow-up on Type 2 Diabetes Mellitus: Last Diabetic eye exam was on: 02/2023 Last Podiatry exam was on: Does not see a Costume Designer Most recent HbA1c: 9.6%, 06/02/2024 Random Glucose- 276 mg/dL, Today Pipe Recovery Specialist Required: Yes Pipe Recovery Specialist Language: Knot Borer Services: Pipe Recovery Specialist Present Pipe Recovery Specialist Name: SEBASTIAN Srivastava/FADY HALL Information Interpreted: non-clinical & clinical Accompanied by: Self / Same As Patient Allergies empagliflozin Adverse Reaction (Intermediate, Verified 06/02/24 16:27) uti HPI Comments Details: Patient is 68-year-old female with DM type 2 diagnosed 1989 who presents for f/u diabetes visit. She was last seen in Endocrine 11/07/2023. She had recently been started on Lantus insulin at 6 units prior to that visit and this was increased to 20 units. [facility] is administering insulin each morning. A1C in the office 06/02/24 9.6% up from 8.8%. She previously had been on acarbose and Jardiance. She has had multiple klebsiella + uti's in the past. Issues with memory. She has a referral for neurology from PCP At the time of her visit she stated twice that she was taking novolog 20 units twice per day. I confirmed with [facility] [phone] that she is only taking Lantus 20 units and metformin twice daily Diabetes medications Lantus 20 units every am by [facility] Metformin 1000 mg b.i.d. Readings by [facility] in the am: running 120's in the am, higher later in the day no logs to review Past medical history: Diabetes type 2, obesity status post gastric bypass surgery in 2005, vitamin-D deficiency, depression, osteopenia, multinodular goiter, low TSH. Micro and macrovascular complications: Retinopathy, neuropathy, nephropathy Symptoms reported: occasional numbness, tingling, no cramping in lower extremities denies uti, candidal vaginitis symptoms Hypoglycemia: denies Hyperglycemia: denies polyuria, denies polydypsia Molding Plasterer - CDE education: long time ago Costume Designer: She desires referral as her nails are thickened. She is no longer wearing open toed shoes. Ophthalmology evaluation: Feb 2023 retinopathy per pt she has f/u exam Other specialists: Cardiology [facility], [facility] Medical History Diastolic dysfunction Hypertension CKD stage 3 secondary to diabetes Gastroparesis due to secondary diabetes Bradycardia Burning with urination Encounter for monitoring anti-arrhythmic therapy Essential hypertension Abdominal bloating Small intestinal bacterial overgrowth Nausea and vomiting Dysphagia Periumbilical abdominal pain Globus sensation Orthostatic hypotension Presence of Watchman left atrial appendage closure device Subdural hematoma Syncope and collapse PAF (paroxysmal atrial fibrillation) Vitamin D deficiency Anxiety Depression Overweight (BMI 25.0-29.9) Dyslipidemia Non-toxic multinodular goiter Diabetic polyneuropathy associated with type 2 diabetes mellitus Diabetic retinopathy associated with type 2 diabetes mellitus Diabetes type 2, controlled Surgical History Hx of breast reduction, elective History of cholecystectomy H/O esophagogastroduodenoscopy Hx of colonoscopy History of gastric bypass History of gastric bypass Hx of hand surgery Family History Father CVD (cardiovascular disease) Mother Diabetes Social History Household Members: Spouse Alcohol intake: never Patient Tobacco Use Status: Former Tobacco user Tobacco use type: Cigarette Physical Exam Vital Signs: Last Vital Signs Pulse 106 H 06/02/24 16:28 BP 112/76 06/02/24 16:28 BMI result Body Mass Index 26.3 Const Other: Absence of Cushingoid features. Absence of acromegalic features. Neck exam reveals nl size thyroid about 15 gms. No thyroid nodules palpable. Heart S1 S2, Reg R/R. No M/R G. Skin exam reveals absence of vitiligo or acanthosis nigricans. Visual exam of foot performed. No ulcerations or open lesions. No inter digit maceration or fissuring. No onychomycosis, no callouses. Sensation intact to monofilament exam. Vibratory sensation is normal with 128 Hz tuning fork. Results AMB Hemoglobin A1c AMB Hemoglobin A1c 9.6 % Last Edit by SEBASTIAN Srivastava on 06/02/24 16:50 Results Reviewed Results Reviewed: Laboratory Last Values Glucose (Clinic) 276 mg/dL (60-115) H 06/02/24 16:31 Hgb A1c (Clinic) 9.6 % (4.0-6.0) H 06/02/24 16:35 Assessment & Plan Assessment & Plan (1) Diabetes type 2, controlled: Code(s): E11.9 - Type 2 diabetes mellitus without complications Category: Medical Plan: 68-year-old type 2 diabetic with a A1c increased to 9.6%. At the time of her office visit she stated that she had was taking NovoLog several times per day per meals. I confirmed the ADMITTANCE ATTENDANT she is taking only Lantus 20 units and metformin. We will increase Lantus to 24 units and see her back in several weeks for review of logs. Jardiance contraindicated secondary to UTI. She does have gastroparesis could possibly consider low-dose GLP 1 agonist. The patient had an opportunity to ask questions regarding treatment plan. The patient expressed understanding and agreement with the above treatment plan. The patient is aware they should contact our office by phone for worsening glucose readings or for any low blood sugars which may warrant a change in diabetes medication. Compliance is encouraged with medications and any followup testing/consults which may have been ordered. Orders: Orders AMB Hemoglobin A1c 06/02/24 E11.319 - Type 2 diabetes mellitus with unspecified diabetic retinopathy without macular edema Medications: Changed From insulin glargine (Lantus Solostar U-100 Insulin) 24 units subcut QAM To insulin glargine (Lantus Solostar U-100 Insulin) 24 units (0.24 mL) subcut QAM 30 days 9 mL 11RF Patient Instructions: Check your feet daily looking for any signs of infection, ulceration and seek medical attention if this occurs. Break in shoes gradually and do not wear open-toed shoes or walk barefooted. The patient was counseled to achieve a target A1C of 7% (154 avg). Fasting blood sugars should be 90-130 in the morning and less than 180 two hours after meals. Reviewed the relationship between poor diabetic control and the development of complications. The patient was counseled to always carry a source of sugar and on the rule of 15's: Take 3 glucose tablets and repeat again in 15 minutes if blood sugar is not in normal range. Continue to repeat every 15 minutes until blood sugar is normal. Coding Level of Care Code Est Pt Level 4 (54557) Complex EM visit Add On G2211 Diagnoses Diabetes type 2, controlled E11.9 Time Spent (min) 30 Comment Time spent reviewing labs/provider notes, face to face, chart doc
[2024-06-02 16:28] VITALS: BP 112/76; PULSE 106; BMI 26.3
[2024-06-02 16:36] LABS: Glucose, Whole Blood 276 mg/dL (60-115)
== END 2024-06-02 16:53 | disposition home or self-care (01) ==
PROVIDERS: PCP Internal Medicine; Visit Provider Nurse Practitioner Adult Health
DX: E11.319 Type 2 diabetes mellitus with unspecified diabetic retinopathy without macular edema (principal)
CPT/HCPCS: 99214

== ENCOUNTER → 2024-06-02 16:15 | Outpatient (BNVA) | payer MEDICAID, SELFPAY | PROVIDERS: PCP Internal Medicine; Visit Provider Nurse Practitioner Adult Health | DX: E11.9 Type 2 diabetes mellitus without complications (principal); E55.9 Vitamin D deficiency, unspecified; Z79.4 Long term (current) use of insulin; Z98.84 Bariatric surgery status | CPT/HCPCS: 82947; 83036; 99212 ==

== ENCOUNTER 2024-07-08 13:57 | Outpatient (AMB) | payer MEDICAID, SELFPAY ==
--- NOTE | 2024-07-08 08:39 | A.OFFVIS_ITS ---
Vital Signs 07/08/24 14:11 Height 5 ft 6 in Weight 163 lb 2.273 oz BMI 26.3 BP 145/64 H Blood Pressure Location Rt brachial Position Sitting Pulse 62 Pulse Source Pulse Oximeter Intake Visit Reasons: T2DM Intake Note: Patient presents today for a follow-up on Type 2 Diabetes Mellitus: Last Diabetic eye exam was on: 02/2023 Last Podiatry exam was on: Does not see a Treating Inspector Most recent HbA1c: 9.6%, 06/02/2024 Random Glucose- 325 mg/dL, Today Aboriginal Community Council Member Required: Yes Aboriginal Community Council Member Language: Fire And Safety Helper Services: Aboriginal Community Council Member Present Aboriginal Community Council Member Name: SEBASTIAN Srivastava/FADY HALL Information Interpreted: non-clinical & clinical Accompanied by: Self / Same As Patient Allergies empagliflozin Adverse Reaction (Intermediate, Verified 06/02/24 16:27) uti HPI Comments Details: Patient is 68-year-old female with DM type 2 diagnosed 1989 who presents for f/u diabetes visit. She was last seen in Endocrine 06/02/2024 with an A1c 9.6%. She had recently been started on Lantus insulin at 6 units prior to that visit and this was increased to 20 units then 24 units. VNA is administering insulin each morning. A1C in the office 06/02/24 9.6% up from 8.8%. She previously had been on acarbose and Jardiance. She has had multiple klebsiella + uti's in the past. She has gastroparesis on multiple agents and GLP 1 agonists are contraindicated. Issues with memory. She has a referral for neurology from PCP. She has history of prior fall with subdural hematoma. Several visits ago she had reported she was taking Novolog. I confirmed with [facility] [phone] that she was only taking Lantus 20 units and metformin twice daily. Lantus was increased at her last visit. Diabetes medications Lantus 24 units every am by VNA Metformin 1000 mg b.i.d. Readings by [facility]NA in the am: readings per patient history 300's occ 150 patient is a poor historiam Hypoglycemia: denies Hyperglycemia: denies polyuria, denies polydypsia Her meter download does not show any readings. Inflated Pad Buffer - CDE education: 10/2023 Has neuropathy: symptoms include: Treating Inspector: She desires referral as her nails are thickened. She is no longer wearing open toed shoes. Has retinopathy: Ophthalmology evaluation: Feb 2023 needs opth Has nephropathy. Last EGFR 47 up from previous microalbumin 10/18/2023 9.0 07/10 112 she is followed regularly by Dr. Otoole Other specialists: Cardiology: Followed for AFib orthostasis Tobacco: 4 per day has been thinking about quitting Alcohol: reports no alcohol Diet: wats whatever [facility] Medical History (Updated 07/08/24 @ 15:38 by Maribell Bunch NP) Diabetes mellitus type 2, insulin dependent Diastolic dysfunction Hypertension CKD stage 3 secondary to diabetes Gastroparesis due to secondary diabetes Bradycardia Burning with urination Encounter for monitoring anti-arrhythmic therapy Essential hypertension Abdominal bloating Small intestinal bacterial overgrowth Nausea and vomiting Dysphagia Periumbilical abdominal pain Globus sensation Orthostatic hypotension Presence of Watchman left atrial appendage closure device Subdural hematoma Syncope and collapse PAF (paroxysmal atrial fibrillation) Vitamin D deficiency Anxiety Depression Overweight (BMI 25.0-29.9) Dyslipidemia Non-toxic multinodular goiter Diabetic polyneuropathy associated with type 2 diabetes mellitus Diabetic retinopathy associated with type 2 diabetes mellitus Diabetes type 2, controlled Surgical History Hx of breast reduction, elective History of cholecystectomy H/O esophagogastroduodenoscopy Hx of colonoscopy History of gastric bypass History of gastric bypass Hx of hand surgery Family History Father CVD (cardiovascular disease) Mother Diabetes Social History Household Members: Spouse Alcohol intake: never Patient Tobacco Use Status: Former Tobacco user Tobacco use type: Cigarette Physical Exam Vital Signs: Last Vital Signs Pulse 62 07/08/24 14:11 BP 145/64 H 07/08/24 14:11 BMI result Body Mass Index 26.3 Const Other: Absence of Cushingoid features. Absence of acromegalic features. Neck exam reveals nl size thyroid about 15 gms. No thyroid nodules palpable. No carotid bruits present. Lungs CTA. Heart S1 S2, Reg R/R. No M/R G. Skin exam reveals absence of vitiligo or acanthosis nigricans. No edema Visual exam of foot performed. No ulcerations or open lesions. No inter digit maceration or fissuring. onychomycosis, with uncal debris under nail, nails elongated no callouses. Sensation intact to monofilament exam. Vibratory sensation is normal with 128 Hz tuning fork. Office Procedures Glucose Monitoring Details Details: sensor placed and scanned will see patient back in 14 days 29925 - Glucose Monitoring, continuous Procedure code (CPT) selection complete Results Reviewed Results Reviewed: Laboratory Last Values Glucose (Clinic) 325 mg/dL (60-115) H 07/08/24 14:14 Assessment & Plan Assessment & Plan (1) Diabetes type 2, controlled: Code(s): E11.9 - Type 2 diabetes mellitus without complications Category: Medical Plan: 68-year-old female with type 2 diabetes with stable nephropathy followed by Ne phrology, neuropathy, retinopathy and gastroparesis with a recent A1c of 9.6% 06/02/24. This is up from her previous 8%. She is followed by [facility] who comes in once daily to administer her insulin and check her blood sugar. A 14 day in office glucose sensor was placed and patient will come back in two weeks for download. Can consider changing to once daily 75/25 insulin. Case d/w Dr. Ramos, May not be able to achieve an A1c of 7% with this patient given her co- morbidities and inability to self administer insulin. SGLT2-inhibitors contraindicated due to multiple Klebsiella UTIs in the past GLP 1 agonist contraindicated secondary to significant gastroparesis on multiple agents The patient had an opportunity to ask questions regarding treatment plan. The patient expressed understanding and agreement with the above treatment plan. The patient is aware they should contact our office by phone for worsening glucose readings or for any low blood sugars which may warrant a change in diabetes medication. Compliance is encouraged with medications and any followup testing/consults which may have been ordered. Orders: Orders AMB Glucose Monitoring Today E11.9 - Type 2 diabetes mellitus without complications, Z79.4 - senior care (current) use of insulin Referrals Ophthalmology Referral E11.319 - Type 2 diabetes mellitus with unspecified diabetic retinopathy without macular edema Podiatry Referral E11.42 - Type 2 diabetes mellitus with diabetic polyneuropathy Patient Instructions: Check your feet daily looking for any signs of infection, drainage, redness, ulceration and seek medical attention if this occurs. Break in shoes gradually and do not wear open-toed shoes or walk stocking footed or barefooted. Coding Level of Care Code Est Pt Level 4 (04821) Diagnoses Diabetes type 2, controlled E11.9 CPT Codes Details - CPT: 19347 - Glucose Monitoring, continuous ([id number]) Time Spent (min) 50 Comment Time spent reviewing labs/provider notes, face to face, chart doc
[2024-07-08 14:11] VITALS: BP 145/64; PULSE 62; BMI 26.3
--- OUTSIDE RECORDS SUMMARY | 2024-07-08 14:15 | XMS_ITS | Clinical Summary ---
Author Organization [facility] Address [address] [place] [phone] Care Team Providers Care Electronic Bench Technician Name Role Phone Addi Jensen NP Primary Care Provider Surgical History Surgery Date Site/Laterality Comments GASTRIC BYPASS PROCEDURE: GASTRIC BYPASS FOR OBESIT ABDOMINAL SURGERY PROCEDURE: HISTORICAL ABDOMINAL SURGERY BREAST REDUCTION PROCEDURE: LA BREAST REDUCTION CHOLECYSTECTOMY PROCEDURE: LA CHOLECYSTECTOMY FOOT SURGERY PROCEDURE: HISTORICAL FOOT SURGERY; COMMENT: right foot,little toe Medical History Medical History Date Comments Diabetes mellitus (CMS/HCC) DX:D iabetes mellitus (HCC) Anxiety DX:Anxiety Depression DX:Depression Paroxysmal atrial fibrillation (CMS/HCC) DX:Paroxysmal atrial fibrillation (HCC) Iron deficiency anemia DX:Iron d eficiency anemia Chronic kidney disease DX:Chroni c kidney disease; COMMENT: STAGE 3 JOSE LUIS (obstructive sleep apnea) DX :JOSE LUIS (obstructive sleep apnea) Hypertension DX:Hypertension Hiatal hernia DX:Hiatal hernia Social History Tobacco Use Types Packs/Day Years Used Date Smoking Tobacco: Former Smokeless Tobacco: Never Alcohol Use Standard Drinks/Week Comments Yes 0 (1 standard drink = 0.6 oz pur e alcohol) Comments Unknown Sex and Gender Information Value Date Recorded Sex Assigned at Not on file Legal Sex Female 11:45 PM EST Gender Identity Not on file Sexual Orientation Not on file Obstetrics History Last Filed Vital Signs Vital Sign Reading Time Taken Comments Blood Pressure - - Pulse - - Temperature - - Respiratory Rate - - Oxygen Saturation - - Inhaled Oxygen Concentration - - Weight 58.1 kg (128 lb) 02/27/2023 1:48 PM EDT Height 160 cm (5' 3 ) 07/04/2022 2:49 PM EST Body Mass Index 22.67 07/04/2022 2:49 PM EST Plan of Treatment Health Maintenance Due Date Last Done Comments Breast Cancer Screening 1955 DTaP,Tdap,and Td Vaccines (1 - Tdap) 1976 Pneumococcal Vaccine: 50+ Ye ars (1 of 1 - PCV) 09/27/2007 Zoster Vaccines (1 of 2) 09/27/2007 RSV Immunization Patients 60 + Years Old (1 - Risk 60-74 years 1-dose series) 2017 Colorectal Cancer Screening: Colonoscopy 04/22/2022 Depression Screening 04/22/2022 Hepatitis C Screening 04/22/2022 Osteoporosis Screening (Bone Density Screening) 04/22/2022 Social Influencers of Health Screening 04/22/2022 Falls Risk Assessment 2022 COVID-19 Vaccine (1 - 2023-2 5 season) 2024 Influenza Vaccine (#1) 2024 HIB Vaccines Aged Out No longer eligi ble based on patient's age to complete this topic HPV Vaccines Aged Out No longer eligi ble based on patient's age to complete this topic Hepatitis A Vaccines Aged Out No long er eligible based on patient's age to complete this topic Hepatitis B Vaccines Aged Out No long er eligible based on patient's age to complete this topic IPV Vaccines Aged Out No longer eligi ble based on patient's age to complete this topic MMR Vaccines Aged Out No longer eligi ble based on patient's age to complete this topic Meningococcal ACWY Vaccine Aged Out N o longer eligible based on patient's age to complete this topic Meningococcal B Vacine Aged Out No lo nger eligible based on patient's age to complete this topic RSV Immunization Patients Un ronal 20 months Aged Out No longer eligible b ased on patient's age to complete this topic Varicella Vaccines Aged Out No longer eligible based on patient's age to complete this topic Care Teams Electronic Bench Technician Relationship Specialty Start Date End Date Addi Jensen NP [address] [place], [place] PCP - General 08/29/09
--- OUTSIDE RECORDS SUMMARY | 2024-07-08 14:16 | XMS_ITS | Clinical Summary ---
Author Organization [facility] Address [address] [place] [address] [address] LOPEZ BEATRIS JOVITA [phone] Phone Care Team Providers Care Edging Machine Setter Name Role Phone Cherrie Gómez MD Primary Care Provide r Allergies Active Allergy Reactions Criticality Noted Date Comments Oxycodone-Acetaminophen Itching 06/10/2012 Medications acarbose (PRECOSE) 25 MG tablet Take 25 mg by mouth 3 times a day 06/16/2020 Active ascorbic acid (VITAMIN C) 250 MG tablet Take 1 tablet by mouth 2 (two) times a day Active Aspirin Low Dose 81 MG EC tablet Take 81 mg by mouth 1 (one) time each day 06/16/2020 Active atorvastatin (LIPITOR) 40 MG tablet Take 1 tablet by mouth 1 (one) time each day Active buPROPion SR (WELLBUTRIN SR) 200 MG 12 hr tablet Take 1 tablet by mouth 1 (one) time each day Active Calcium Carbonate-Vitam in D 600-200 MG-UNIT capsule Take 1 capsule by mouth 2 (two) times a day Active ferrous sulfate 325 (65 Fe) MG tablet Take 1 tablet by mouth 2 (two) times a day Active flecainide (TAMBOCOR) 50 MG tablet Take 1 tablet by mouth 2 (two) times a day Active gabapentin (NEURONTIN) 300 MG capsule Take 300 mg by mouth every night 08/10/2020 Active loperamide (IMODIUM A-D) 2 MG tablet Take 2 mg by mouth every night Active midodrine (PROAMATINE) 5 MG tablet Take 1 tablet by mouth 3 (three) times a day Active oxybutynin (DITROPAN) 5 MG tablet Take 1 tablet by mouth 2 (two) times a day Active pantoprazole (PROTONIX) 40 MG EC tablet Take 1 tablet by mouth 1 (one) time each day Active sucralfate (CARAFATE) 1 g tablet Take 1 g by mouth 1 (one) time each day Active traZODone (DESYREL) 100 MG tablet Take 1 tablet by mouth at bed time Active cholecalciferol (VITAMIN D-3 SUPER STRENGTH) 50 MCG (2000 UT) tablet Take 2,000 Units by mouth 1 (one) time each day Active dicyclomine (BENTYL) 20 MG tablet Take 20 mg by mouth every 6 (six) hours Active ondansetron (ZOFRAN) 4 MG tablet Take 4 mg by mouth every 8 (eight) hours if needed for nausea or vomiting Active apixaban (ELIQUIS) 5 MG tablet Take 5 mg by mouth 12/10/2019 Active metoprolol succinate XL (TOPROL XL) 25 MG 24 hr tablet Take 25 mg by mouth 12/10/2019 Active gabapentin (NEURONTIN) 100 MG capsule Take 300 mg by mouth 06/20/2017 Active calcium carbonate-vitam in D 600-200 MG-UNIT per tablet Take by mouth 10/31/2012 Activ e atorvastatin (LIPITOR) 40 MG tablet Take 40 mg by mouth 08/01/2017 Active buPROPion SR (WELLBUTRIN SR) 200 MG 12 hr tablet Take 200 mg by mouth 06/13/2017 Active ibuprofen (ADVIL,MOTRIN) 600 MG tablet Take 600 mg by mouth 06/13/2017 Active insulin aspart (NovoLOG) 100 UNIT/ML injection Inject under the skin 06/13/2017 Active omeprazole (PriLOSEC) [address] capsule Take 20 mg by mouth 06/13/2017 Active Active Problems Problem Noted Date Diagnosed Date Stage 3b chronic kidney disease 05/23/2023 Type 2 diabetes mellitus wit h diabetic chronic kidney disease 05/23/2023 Denture unstable 04/24/2023 05/23/2023 Bradycardia 03/20/2023 05/23/2023 Overview (05/23/2023): Last Assessment & Plan: Patient is known to have low HR she is being follow by cardiology Dental caries 01/31/2023 05/23/2023 Dental abscess 12/04/2022 05/23/2023 History of injury 11/21/2022 Overview (02/18/2024): Last Assessment & Plan: Pt w large laceration from recent fall w no signs of infection, only mild erythema in small area but no increase temp nor drainage Pt reports pain w deep breathings in right side Normal lung exam -prescribed mupirocin TID x 10 days -lidocaine patch x pain and tylenol prn -CXR ordered today Replacing diagnoses that were inactivated after the 02/18/24 Regulatory Import Dizziness 11/21/2022 05/23/2023 Overview (05/23/2023): Last Assessment & Plan: Multifactorial F/u with ENT F/u with cardiology F/u with neurology Carotid US WNL I advise to change position slowly and maintain hydration Rollator already prescribed Generalized abdominal pain 10/18/202205/23 Overview (05/23/2023): Last Assessment & Plan: I advise patient to avoid NSAIDs, spicy and acid food, I advise to eat at the same time every day, I advise to elevate the head of the bed and take medications as prescribe She is already on PPI I added zofran today GI referral Complete edentulism, class III 08/17/2022 0 05/23/2023 Atrial fibrillation 08/09/2021 Chronic kidney disease 08/09/2021 Depressive disorder 08/09/2021 Gastroesophageal reflux disease 08/09/2021 Generalized anxiety disorder 08/09/2021 Irritable bowel syndrome 08/09/2021 Neuropathy 08/09/2021 Essential hypertension 08/26/2020 Low blood pressure 08/26/2020 Type 2 diabetes mellitus 08/26/2020 Vitamin deficiency 08/26/2020 Iron deficiency anemia 02/27/2018 Overview (05/23/2023): Last Assessment & Plan: Pt w hx of anemia from unclear source possible from bariatric surgery hx ? 12/2022 Hb12.7<,--- 11.9, platelets 153<---133, WBC 4.6 ,iron panel is wnl ,folate and vit B 12 are normal Denies hx of BBPR ,melenas nor hematuria -EGD 2018 : linear ulceration distal to anastomosis w neg bx x H pyori and x celiac sprue -colonoscopy 2018 Diverticulosis and #2 polyps ( hyperplastic and another tubular adenoma) to repeat in 5 years -continue iron BID -pt reports that saw GI -per pt was told will have repeated colonoscopy ---gave today information to pt to call for f up apt w GI for colonoscopy -will do labs to r/o other etiology for low platelets and low WBC ,anemia stable now -pt to f up w PCP next month Hematoma of subdural space of neuraxis 8 05/23/2023 Hyperlipidemia 04/19/2017 05/23/2023 History of cholecystectomy 04/19/201705/23 Immunizations Name Administration Dates Next Due Influenza Split 01/22/2013,01/18/2012 Influenza Vaccine, Quadrivalent, Adjuvanted 01/18 Influenza, MDCK, PF, Quadrivalent 02/15/2022,,03/07/2020 Influenza, Quadrivalent, Preservative Free 03/25 Influenza, Quadrivalent, With Preservative 02/27,02/18/2017,02/10/2016 Pneumococcal Conjugate Pcv 20 05/02/2023 Pneumococcal Polysaccharide 07/02/2018, 8,12/01/2007 Pneumococcal, Unspecified 12/01/2007 TD Preservative Free 06/07/2014 Td 01/26/2005,05/09/1995 Family History Medical History Relation Comments Hypertension Sibling Sister Relation Status Comments Sibling Social History Tobacco Use Types Packs/Day Years Used Date Smoking Tobacco: Never Smokeless Tobacco: Never Alcohol Use Standard Drinks/Week Comments No 0 (1 standard drink = 0.6 oz pur e alcohol) Comments Unknown Sex and Gender Information Value Date Recorded Sex Assigned at Not on file Legal Sex Female 4:57 PM EST Gender Identity Not on file Sexual Orientation Not on file Last Filed Vital Signs Vital Sign Reading Time Taken Comments Blood Pressure 122/61 05/23/2023 2:22 PM EST Pulse 74 05/23/2023 2:22 PM EST Temperature - - Respiratory Rate - - Oxygen Saturation 98% 05/23/2023 2:22 PM EST Inhaled Oxygen Concentration - - Weight 61.6 kg (135 lb 12.8 oz) 05/23/2023 2:22 PM EST Height - - Body Mass Index - - Plan of Treatment Health Maintenance Due Date Last Done Comments Breast Cancer Screening 1957 Colorectal Cancer Screening: Annual FOBT 2006 Colorectal Cancer Screening: Colonoscopy 2006 Colorectal Cancer Screening: Sigmoidoscopy 2006 Hepatitis B Vaccine (1 of 3 - Risk 3-dose series) 2017 06/17/2017, 12/11/2006, 11/06/2005 Diabetes: Ophthalmology Exam 06/19/2020 Diabetes: Pedal Pulse Checked 06/19/2020 Diabetes: Sensory Foot Exam 06/19/2020 Diabetes: Visual Foot Exam 06/19/2020 Influenza Vaccine (#1) 2024 , 02/15/2022, 03/16/2021, Additional history exists Diabetes: Hemoglobin A1C 01/25/2024 10/25/2023 Pneumococcal Vaccine: 65+ Years Completed 05/02/2023, 07/02/2018, 06/14/2017, Additional history exists [place] [address] [place] [address] ([id number]) [facility] ([id number]) [place]Y SAMSON [id number] Care Teams Edging Machine Setter Relationship Specialty Start Date End Date Cherrie Gómez MD [address] [place] [phone] PCP - General 05/30/20
[2024-07-08 14:26] LABS: Glucose, Whole Blood 325 mg/dL (60-115)
== END 2024-07-08 14:45 | disposition home or self-care (01) ==
PROVIDERS: PCP Internal Medicine; Visit Provider Nurse Practitioner Adult Health
DX: E11.9 Type 2 diabetes mellitus without complications (principal)
CPT/HCPCS: 99214

== ENCOUNTER → 2024-07-08 13:57 | Outpatient (BNVA) | payer MEDICAID, SELFPAY | PROVIDERS: PCP Internal Medicine; Visit Provider Nurse Practitioner Adult Health | DX: E11.319 Type 2 diabetes mellitus with unspecified diabetic retinopathy without macular edema (principal); E11.42 Type 2 diabetes mellitus with diabetic polyneuropathy; Z79.84 Long term (current) use of oral hypoglycemic drugs; Z79.4 Long term (current) use of insulin | CPT/HCPCS: 82947; 95250; 99212 ==

== ENCOUNTER → 2024-07-23 23:59 | Outpatient (BNV) | payer OTHER, SELFPAY ==
--- NOTE | 2024-07-27 14:18 | MHC.OFFVIS ---
Intake Visit Reasons: Remote device check- [facility] Allergies empagliflozin Adverse Reaction (Intermediate, Verified 07/24/24 13:42) uti [facility] Medical History (Updated 07/08/24 @ 15:38 by Maribell Bunch NP) Diabetes mellitus type 2, insulin dependent Diastolic dysfunction Hypertension CKD stage 3 secondary to diabetes Gastroparesis due to secondary diabetes Bradycardia Burning with urination Encounter for monitoring anti-arrhythmic therapy Essential hypertension Abdominal bloating Small intestinal bacterial overgrowth Nausea and vomiting Dysphagia Periumbilical abdominal pain Globus sensation Orthostatic hypotension Presence of Watchman left atrial appendage closure device Subdural hematoma Syncope and collapse PAF (paroxysmal atrial fibrillation) Vitamin D deficiency Anxiety Depression Overweight (BMI 25.0-29.9) Dyslipidemia Non-toxic multinodular goiter Diabetic polyneuropathy associated with type 2 diabetes mellitus Diabetic retinopathy associated with type 2 diabetes mellitus Diabetes type 2, controlled Surgical History Hx of breast reduction, elective History of cholecystectomy H/O esophagogastroduodenoscopy Hx of colonoscopy History of gastric bypass History of gastric bypass Hx of hand surgery Family History Father CVD (cardiovascular disease) Mother Diabetes Social History Household Members: Spouse Alcohol intake: never Patient Tobacco Use Status: Former Tobacco user Tobacco use type: Cigarette Office Procedures Cardiac Device Check Cardiac Device Check Details: Date of service- 07/23/2024 ; Battery life >9 years; normal lead parameters; AP 85%; VESSEL MANAGER 57%; brief atrial tachycardia episodes. Overall normal device function. [id number] Cardiac Device Interrogation, pacemaker Procedure code (CPT) selection complete Assessment & Plan Assessment & Plan (1) Pacemaker: Code(s): Z95.0 - Presence of cardiac pacemaker Category: Medical (2) PAF (paroxysmal atrial fibrillation): Code(s): I48.0 - Paroxysmal atrial fibrillation Category: Medical Plan x Coding Level of Care Code Procedure Only Diagnoses Pacemaker Z95.0 PAF (paroxysmal atrial fibrillation) I48.0 CPT Codes Cardiac Device Check - Cardiac Device 12: [id number] Cardiac Device Interrogation, pacemaker ([id number])
== END ==
PROVIDERS: PCP Internal Medicine; Visit Provider Internal Medicine
DX: I48.0 Paroxysmal atrial fibrillation (principal); Z95.0 Presence of cardiac pacemaker
CPT/HCPCS: 93294

== ENCOUNTER 2024-07-24 13:30 | Outpatient (AMB) | payer MEDICAID, SELFPAY ==
[2024-07-24 13:40] VITALS: BP 138/76; PULSE 63; O2SAT 99; BMI 26.0
--- NOTE | 2024-07-24 13:40 | A.OFFVIS_ITS ---
Vital Signs 07/24/24 13:40 Height 5 ft 6 in Weight 160 lb 14.999 oz BMI 26.0 BP 138/76 Blood Pressure Location Rt brachial Position Sitting Pulse 63 Pulse Source Pulse Oximeter Pulse Oximetry (%) 99 Oxygen Delivery Method Room Air Intake Visit Reasons: DM Intake Note: Patient presents today for a follow-up on Type 2 Diabetes Mellitus: Last Diabetic eye exam was on: 02/2024 Last Podiatry exam was on: Does not see a Fitness Consultant Most recent HbA1c: 9.6%, 06/02/2024 Random Glucose- 338 mg/dL, Today Applications Engineer Required: Yes Applications Engineer Language: Hotel Maintenance Engineer Services: Applications Engineer Present Applications Engineer Name: SEBASTIAN Srivastava/FADY HALL Information Interpreted: non-clinical & clinical Accompanied by: Self / Same As Patient Allergies empagliflozin Adverse Reaction (Intermediate, Verified 07/24/24 13:42) uti Medication List - Last Reconciled 07/24/24 by Maribell Bunch NP alum-mag hydroxide-simeth 400-400-40 mg/5 mL (Mylanta Maximum Strength) 10 mL PO QID PRN amlodipine 5 mg PO DAILY aspirin (Adult Aspirin Regimen) 81 mg PO DAILY atorvastatin 80 mg PO BEDTIME Bacillus coagulans (Digestive Advantage Probiotics-Prebiotic) 1 tab po qd PO; 30 days blood sugar diagnostic (FreeStyle Lite Strips) 2times a day blood-glucose meter (FreeStyle Lite Meter kit) Twice a day blood-glucose meter,continuous (FreeStyle Zunilda 3 [place]) As directed blood-glucose sensor (FreeStyle Zunilda 3 Sensor device) every 14 days calcium carbonate-vitamin D3 600 mg-10 mcg (400 unit) 1 tab PO BID cholecalciferol (vitamin D3) 50 mcg PO DAILY [diabetic shoes extra depth orthopedic shoes ( 1 pair ) with customize heat molded multi density inner soles ( 3 pair) Dispense 1 Sig: As directed DX: And IDDM /polyneuropathy ( E11 0.42 ); hammertoe foot deformity ( M 20.41, and 20.42 ) pre ulcerative skin lesion ( L 85.1 ) Diagnosis ( E11 0.42 ) type 2 diabetes with polyneuropathy] [diabetic shoes extra depth orthopedic shoes ( 1 pair ) with customize heat molded multi density inner soles ( 3 pair) Dispense 1 Sig: As directed DX: And IDDM /polyneuropathy ( E11 0.42 ); hammertoe foot deformity ( M 20.41, and 20.42 ) pre ulcerative skin lesion ( L 85.1 ) Diagnosis ( E11 0.42 ) type 2 diabetes with polyneuropathy] dicyclomine 20 mg PO QID escitalopram oxalate 20 mg PO DAILY famotidine (Pepcid) 40 mg PO BEDTIME 30 days ferrous sulfate 325 mg PO BID flecainide 50 mg PO Q12H furosemide 20 mg PO DAILY gabapentin 300 mg PO BEDTIME insulin lispro protamin-lispro 100 unit/mL (75-25) (Humalog Mix 75-25(U-100)Insuln) 34 units (0.34 mL) subcut QAM 30 days insulin U-500 syringe-needle (BD Insulin Syringe U-500) As directed daily lancets (FreeStyle Lancets) As directed linaclotide (Linzess) 145 mcg PO QAM loperamide 2 mg PO Q6H PRN meclizine 25 mg PO DAILY PRN metformin 1,000 mg PO BID 90 days metoclopramide HCl 5 mg PO QID metoprolol succinate ER 25 mg PO DAILY multivitamin 1 tab PO DAILY oxybutynin chloride 5 mg PO BID pioglitazone 15 mg PO DAILY 30 days rabeprazole 20 mg PO BID sennosides (senna) 17.2 mg (2 x 8.6 mg) PO BEDTIME PRN simethicone 180 mg PO TID trazodone 100 mg PO BEDTIME PRN HPI Comments Details: Patient is 68-year-old female with DM type 2 diagnosed 1989 who presents for f/u diabetes visit. She was last seen in Endocrine several weeks ago at which time a 14 day professional zunilda sensor was inserted. 06/02/2024 A1c 9.6% up from 8.8%. She previously had been on acarbose and Jardiance. She has had multiple klebsiella + uti's in the past. She has gastroparesis on multiple agents and GLP 1 agonists are contraindicated. Issues with memory. She has a referral for neurology from PCP. She has history of prior fall with subdural hematoma. She attends a day program. VNA contact: Willow REE [phone] Diabetes medications Lantus 24 units every am by VNA Metformin 1000 mg b.i.d. Freestyle zunilda sensor 3 average glucose: 244 14 day continuous glucose sensor report reviewed Glucose Management indicator 9.1 % TIme in ranges: Forty-four % very high (above 250) 24 % high (181-250) 30 % in range (70-180] 2 % low (69-55) 0 % very low (below 54) [43.7 ] Glucose variability (target <36%) Interpretation of CGMS [14 day sensor shows a consistent trend of readings in the morning under good control with gradual rise after breakfast lunch and supper ] Hypoglycemia: denies Hyperglycemia: denies polyuria, denies polydypsia . Pharmacy Technology Instructor - CDE education: 10/2023 Has neuropathy: symptoms include: numbness/tingling Has retinopathy: Ophthalmology evaluation: referral given last visit Has nephropathy. Last EGFR 47 up from previous microalbumin 10/18/2023 9.0 07/10 112 she is followed regularly by Dr. Otoole Other specialists: Cardiology: Followed for AFib orthostasis Tobacco: 4 per day has been thinking about quitting Alcohol: reports no alcohol Diet: eats what she wants ` [facility] Medical History (Updated 07/08/24 @ 15:38 by Maribell Bunch NP) Diabetes mellitus type 2, insulin dependent Diastolic dysfunction Hypertension CKD stage 3 secondary to diabetes Gastroparesis due to secondary diabetes Bradycardia Burning with urination Encounter for monitoring anti-arrhythmic therapy Essential hypertension Abdominal bloating Small intestinal bacterial overgrowth Nausea and vomiting Dysphagia Periumbilical abdominal pain Globus sensation Orthostatic hypotension Presence of Watchman left atrial appendage closure device Subdural hematoma Syncope and collapse PAF (paroxysmal atrial fibrillation) Vitamin D deficiency Anxiety Depression Overweight (BMI 25.0-29.9) Dyslipidemia Non-toxic multinodular goiter Diabetic polyneuropathy associated with type 2 diabetes mellitus Diabetic retinopathy associated with type 2 diabetes mellitus Diabetes type 2, controlled Surgical History Hx of breast reduction, elective History of cholecystectomy H/O esophagogastroduodenoscopy Hx of colonoscopy History of gastric bypass History of gastric bypass Hx of hand surgery Family History Father CVD (cardiovascular disease) Mother Diabetes Social History Household Members: Spouse Alcohol intake: never Patient Tobacco Use Status: Former Tobacco user Tobacco use type: Cigarette Physical Exam Vital Signs: Last Vital Signs Pulse 63 07/24/24 13:40 BP 138/76 07/24/24 13:40 Pulse Ox 99 07/24/24 13:40 Oxygen Delivery Method Room Air 07/24/24 13:40 BMI result Body Mass Index 26.0 Const Other: Absence of Cushingoid features. Absence of acromegalic features. Heart S1 S2, Reg R/R. No M/R G. Skin exam reveals absence of vitiligo or acanthosis nigricans. Visual exam of foot performed. No ulcerations or open lesions. No inter digit maceration or fissuring. No onychomycosis, no callouses. Sensation intact to monofilament exam. Vibratory sensation is normal with 128 Hz tuning fork. Office Procedures Glucose Monitoring Details Details: see [facility] [id number] - Glucose monitoring, continuous-physician I&R Procedure code (CPT) selection complete Results Reviewed Results Reviewed: Laboratory Last Values Glucose (Clinic) 338 mg/dL (60-115) H 07/24/24 13:47 Assessment & Plan Assessment & Plan (1) Diabetes type 2, controlled: Code(s): E11.9 - Type 2 diabetes mellitus without complications Category: Medical Plan: 68-year-old type 2 diabetic with neuropathy, retinopathy and nephropathy followed by a bank sales and service manager presents today for review of in office 14 day sensor shows an average of 244 with a gradually increasing numbers throughout the day Will change to mixed insulin starting at: Humalog mix 75/25 34 units in the morning continue metformin 1000mg bid add pioglitizone 15 mg I spoke with Willow KEENAN. She will discuss with her coordinator whether they can start to come out twice daily in which case we could add a 2nd dose of Humalog mix before supper. Her VNA does not believe she can safely administer insulin on her own. If she goes on twice daily insulin she would qualify for a freestyle Zunilda. Case was discussed with Dr. Ramos. Orders: Orders AMB Glucose Monitoring Today E11.9 - Type 2 diabetes mellitus without complications Medications: New pioglitazone 15 mg PO DAILY 30 days 30 tabs 3RF insulin lispro protamin-lispro 100 unit/mL (75-25) (Humalog Mix 75-25(U-100)Insuln) 34 units (0.34 mL) subcut QAM 30 days 20 mL 3RF insulin U-500 syringe-needle (BD Insulin Syringe U-500) As directed daily 100 ea 1RF E11.9 - Type 2 diabetes mellitus without complications Discontinued insulin glargine (Lantus Solostar U-100 Insulin) Discontinued Reason: Doctor's Order 24 units (0.24 mL) subcut QAM 30 days 9 mL 11RF Patient Instructions: Check your feet daily looking for any signs of infection, drainage, redness, ulceration and seek medical attention if this occurs. Break in shoes gradually and do not wear open-toed shoes or walk stocking footed or barefooted. Coding Level of Care Code Est Pt Level 4 (36177) Complex EM visit Add On G2211 Diagnoses Diabetes type 2, controlled E11.9 CPT Codes Details - CPT: 74517 - Glucose monitoring, continuous-physician I&R ([id number]) Time Spent (min) 30 Comment Time spent reviewing labs/provider notes, glucose,sensor reports, face to face, chart doc
[2024-07-24 13:51] LABS: Glucose, Whole Blood 338 mg/dL (60-115)
--- OUTSIDE RECORDS SUMMARY | 2024-07-24 15:10 | XMS_ITS | Clinical Summary ---
Author Organization [facility] Address [address] [place] [address] DR LOPEZ BEATRIS JOVITA [phone] Phone Care Team Providers Care Big Data Engineer Name Role Phone Cherrie Gómez MD Primary [...] 05/02/2023, 07/02/2018, 06/14/2017, Additional history exists [place] [address] [place] [address] ([id number]) [facility] ([id number]) [place] [id number] Care Teams Big Data Engineer Relationship Specialty Start Date End Date Cherrie Gómez MD [address] [place] [phone] PCP - General 05/30/20
--- OUTSIDE RECORDS SUMMARY | 2024-07-24 15:10 | XMS_ITS | Clinical Summary ---
Author Organization [facility] Address [address] [place] [phone] Care Team Providers Care Endocrinology Nurse Name Role Phone Addi Jensen NP Primary Care Provider [phone] Surgical History Surgery Date Site/Laterality Comments GASTRIC BYPASS PROCEDURE: GASTRIC BYPASS FOR OBESIT ABDOMINAL SURGERY PROCEDURE: HISTORICAL ABDOMINAL SURGERY BREAST REDUCTION PROCEDURE: MA BREAST REDUCTION CHOLECYSTECTOMY PROCEDURE: MA CHOLECYSTECTOMY FOOT SURGERY PROCEDURE: HISTORICAL FOOT SURGERY; [...] age to complete this topic Care Teams Endocrinology Nurse Relationship Specialty Start Date End Date Addi Jensen NP [address] [place], [place] PCP - General 08/29/09
== END 2024-07-24 14:36 | disposition home or self-care (01) ==
PROVIDERS: PCP Internal Medicine; Visit Provider Nurse Practitioner Adult Health
DX: E11.9 Type 2 diabetes mellitus without complications (principal)
CPT/HCPCS: 95251; 99214

== ENCOUNTER → 2024-07-24 13:30 | Outpatient (BNVA) | payer OTHER, SELFPAY | PROVIDERS: PCP Internal Medicine; Visit Provider Nurse Practitioner Adult Health | DX: E11.42 Type 2 diabetes mellitus with diabetic polyneuropathy (principal); E11.319 Type 2 diabetes mellitus with unspecified diabetic retinopathy without macular edema; E11.43 Type 2 diabetes mellitus with diabetic autonomic (poly)neuropathy; K31.84 Gastroparesis; E11.22 Type 2 diabetes mellitus with diabetic chronic kidney disease; I12.9 Hypertensive chronic kidney disease with stage 1 through stage 4 chronic kidney disease, or unspecified chronic kidney disease; N18.30 Chronic kidney disease, stage 3 unspecified | CPT/HCPCS: 82947; 99212 ==

== ENCOUNTER 2024-09-30 08:54 | Outpatient (AMB) | payer OTHER, SELFPAY ==
--- NOTE | 2024-09-30 07:15 | MHC.OFFVIS ---
Vital Signs 09/30/24 09:13 Height 5 ft 6 in Weight 171 lb 15.369 oz BMI 27.8 BP 126/68 Blood Pressure Location Rt brachial Position Sitting Pulse 63 Pulse Source Pulse Oximeter Intake Visit Reasons: T2DM Intake Note: Patient presents today for a follow-up on Type 2 Diabetes Mellitus: Last Diabetic eye exam was on: 02/2024 Last Podiatry exam was on: Does not see a Roofer Vinyl Coating Most recent HbA1c: %, 09/30/2024 Random Glucose- 161 mg/dL, Today Litigation Docket Manager Required: Yes Litigation Docket Manager Language: Engineering Document Control Clerk Services: Litigation Docket Manager Present Information Interpreted: non-clinical & clinical Accompanied by: Self / Same As Patient Allergies empagliflozin Adverse Reaction (Intermediate, Verified 07/24/24 13:42) uti Medication List - Last Reconciled 09/30/24 by Maribell Bunch NP alum-mag hydroxide-simeth 400-400-40 mg/5 mL (Mylanta Maximum Strength) 10 mL PO QID PRN amlodipine 5 mg PO DAILY aspirin (Adult Aspirin Regimen) 81 mg PO DAILY atorvastatin 80 mg PO BEDTIME Bacillus coagulans (Digestive Advantage Probiotics-Prebiotic) 1 tab po qd PO; 30 days blood sugar diagnostic (FreeStyle Lite Strips) 2times a day blood-glucose meter (FreeStyle Lite Meter kit) Twice a day blood-glucose sensor (FreeStyle Zunilda 3 Plus Sensor device) As directed for coninuous use change every 15 days blood-glucose,hydroelectric machinery mechanic helper,cont (FreeStyle Zunilda 3 [place]) As directed calcium carbonate-vitamin D3 600 mg-10 mcg (400 unit) 1 tab PO BID cholecalciferol (vitamin D3) 50 mcg PO DAILY [diabetic shoes extra depth orthopedic shoes ( 1 pair ) with customize heat molded multi density inner soles ( 3 pair) Dispense 1 Sig: As directed DX: And IDDM /polyneuropathy ( E11 0.42 ); hammertoe foot deformity ( M 20.41, and 20.42 ) pre ulcerative skin lesion ( L 85.1 ) Diagnosis ( E11 0.42 ) type 2 diabetes with polyneuropathy] [diabetic shoes extra depth orthopedic shoes ( 1 pair ) with customize heat molded multi density inner soles ( 3 pair) Dispense 1 Sig: As directed DX: And IDDM /polyneuropathy ( E11 0.42 ); hammertoe foot deformity ( M 20.41, and 20.42 ) pre ulcerative skin lesion ( L 85.1 ) Diagnosis ( E11 0.42 ) type 2 diabetes with polyneuropathy] dicyclomine 20 mg PO QID escitalopram oxalate 20 mg PO DAILY famotidine (Pepcid) 40 mg PO BEDTIME 30 days ferrous sulfate 325 mg PO BID flecainide 50 mg PO Q12H furosemide 20 mg PO DAILY gabapentin 300 mg PO BEDTIME glucose (Dex4 Glucose) 16 grams (4 x 4 gram) PO Q15M PRN 30 days MDD 16 tablets glucose (Dex4 Glucose) 16 grams (4 x 4 gram) PO Q15M PRN 30 days MDD 16 tablets insulin lispro protamin-lispro 100 unit/mL (75-25) (Humalog Mix 75-25(U-100)Insuln) 30 units before breakfast 12 units before supper subcutaneously every morning; 30 days insulin syringe-needle U-100 As directed twice daily NS lancets (FreeStyle Lancets) As directed linaclotide (Linzess) 145 mcg PO QAM loperamide 2 mg PO Q6H PRN meclizine 25 mg PO DAILY PRN metformin 1,000 mg PO BID 90 days metoclopramide HCl 5 mg PO QID metoprolol succinate ER 25 mg PO DAILY multivitamin 1 tab PO DAILY oxybutynin chloride 5 mg PO BID pioglitazone 15 mg PO DAILY 30 days rabeprazole 20 mg PO BID sennosides (senna) 17.2 mg (2 x 8.6 mg) PO BEDTIME PRN simethicone (Gas Relief (simethicone)) 125 mg PO BID-QID PRN trazodone 100 mg PO BEDTIME PRN HPI Comments Details: Patient is 69-year-old female with DM type 2 diagnosed 1989 who presents for f/u diabetes visit. She was last seen in Endocrine Clinic 07/24/2024. Most recent A1c was 9.5% on 09/02/2024 She previously had been on acarbose and Jardiance. She has had multiple klebsiella + uti's in the past. She has gastroparesis on multiple agents and GLP 1 agonists are contraindicated. Issues with memory. She has history of prior fall with subdural hematoma. She attends a day program. [facility]NA contact: Willow KEENAN [phone] Her visiting nurse in her readings in the morning have an anywhere from 120-200 later in the day roughly the same occasionally higher her evening dose of insulin was held twice for lower sugars in her visiting nurse reports that she may have had a low while she was at her daycare program. Patient denies this but she does have problems with her memory. I discussed with the visiting nurse the patient going on a [employer] Zunilda 3+. They are able to support and place this every 2 weeks. Diabetes medications Lantus 24 units every am by REE Metformin 1000 mg b.i.d. Hypoglycemia: denies she does not carry a source of sugar and was not able to articulate how to deal with low. Hyperglycemia: denies polyuria, denies polydypsia . Gold Prospector - CDE education: 10/2023 Has neuropathy: symptoms include: numbness/tingling Has retinopathy: Ophthalmology evaluation: referral given last visit she was not contacted Has nephropathy. Last EGFR 47 up from previous microalbumin 10/18/2023 9.0 07/10 112 she is followed regularly by Dr. Otoole no f/u scheduled Other specialists: Cardiology: Followed for AFib orthostasis Tobacco: 4 per day has been thinking about quitting Alcohol: reports no alcohol Diet: eats what she wants does eat conc sweets [facility] Medical History (Updated 07/08/24 @ 15:38 by Maribell Bunch NP) Diabetes mellitus type 2, insulin dependent Diastolic dysfunction Hypertension CKD stage 3 secondary to diabetes Gastroparesis due to secondary diabetes Bradycardia Burning with urination Encounter for monitoring anti-arrhythmic therapy Essential hypertension Abdominal bloating Small intestinal bacterial overgrowth Nausea and vomiting Dysphagia Periumbilical abdominal pain Globus sensation Orthostatic hypotension Presence of Watchman left atrial appendage closure device Subdural hematoma Syncope and collapse PAF (paroxysmal atrial fibrillation) Vitamin D deficiency Anxiety Depression Overweight (BMI 25.0-29.9) Dyslipidemia Non-toxic multinodular goiter Diabetic polyneuropathy associated with type 2 diabetes mellitus Diabetic retinopathy associated with type 2 diabetes mellitus Diabetes type 2, controlled Surgical History Hx of breast reduction, elective History of cholecystectomy H/O esophagogastroduodenoscopy Hx of colonoscopy History of gastric bypass History of gastric bypass Hx of hand surgery Family History Father CVD (cardiovascular disease) Mother Diabetes Social History Household Members: Spouse Alcohol intake: never Patient Tobacco Use Status: Former Tobacco user Tobacco use type: Cigarette Physical Exam Vital Signs: Last Vital Signs Pulse 63 09/30/24 09:13 BP 126/68 09/30/24 09:13 BMI result Body Mass Index 27.8 Const Other: Absence of Cushingoid features. Absence of acromegalic features. Neck exam reveals nl size thyroid about 15 gms. No thyroid nodules palpable. Heart S1 S2, Reg R/R. No M/R G. Skin exam reveals absence of vitiligo or acanthosis nigricans. Visual exam of foot performed. No ulcerations or open lesions. No inter digit maceration or fissuring. + onychomycosis with thickened nails no callouses. Sensation intact to monofilament exam. Vibratory sensation is normal with 128 Hz tuning fork. Results AMB Hemoglobin A1c AMB Hemoglobin A1c 6.6 % Last Edit by SEBASTIAN Srivastava on 09/30/24 09:26 Results Reviewed Results Reviewed: Laboratory Last Values Glucose (Clinic) 161 mg/dL (60-115) H 09/30/24 09:16 Hgb A1c (Clinic) 6.6 % (4.0-6.0) H 09/30/24 09:24 Assessment & Plan Assessment & Plan (1) Diabetes type 2, controlled: Code(s): E11.9 - Type 2 diabetes mellitus without complications Category: Medical Plan: This is a 69-year-old type 2 diabetic with improving A1c to 6.6%. She is followed by Nephrology but needs a follow up visit. Referrals were given today for ophthalmology, podiatry. I will discuss with her visiting nurse getting assistance in setting up these appointments. Continue same dosing of insulin. Freestyle Zunilda 3+ was ordered along with a reader The patient is on multiple daily doses of insulin and has memory loss in his not able to articulate how her glucose readings are. She will be much safer on a constant monitor which the VNA is willing to place. Glucose tablets were sent to pharmacy The patient had an opportunity to ask questions regarding treatment plan. The patient expressed understanding and agreement with the above treatment plan. The patient is aware they should contact our office by phone for worsening glucose readings or for any low blood sugars which may warrant a change in diabetes medication. Compliance is encouraged with medications and any followup testing/consults which may have been ordered. Orders: Orders AMB Hemoglobin A1c Today E11.9 - Type 2 diabetes mellitus without complications, Z79.4 - terminal computer operator (current) use of insulin Referrals Ophthalmology Referral E11.319 - Type 2 diabetes mellitus with unspecified diabetic retinopathy without macular edema Podiatry Referral E11.42 - Type 2 diabetes mellitus with diabetic polyneuropathy Medications: New insulin syringe-needle U-100 As directed twice daily 100 ea 8RF NS glucose (Dex4 Glucose) every 15 minutes until symptoms of low blood sugar are controlled 16 grams (4 x 4 gram) PO Q15M 30 days PRN 30 tabs 3RF hypoglycemia MDD 16 tablets blood-glucose sensor (FreeStyle Zunilda 3 Plus Sensor device) As directed for coninuous use change every 15 days 2 ea 11RF E11.9 - Type 2 diabetes mellitus without complications, Z79.4 - terminal computer operator (current) use of insulin blood-glucose sensor (FreeStyle Zunilda 3 Plus Sensor device) As directed for coninuous use change every 15 days 2 ea 11RF E11.9 - Type 2 diabetes mellitus without complications, Z79.4 - jail (current) use of insulin blood-glucose sensor (FreeStyle Zunilda 3 Plus Sensor device) As directed for coninuous use change every 15 days 2 ea 11RF E11.9 - Type 2 diabetes mellitus without complications, Z79.4 - terminal computer operator (current) use of insulin Refilled blood-glucose,hydroelectric machinery mechanic helper,cont (FreeStyle Zunilda 3 [place]) As directed 1 ea 0RF E11.319 - Type 2 diabetes mellitus with unspecified diabetic retinopathy without macular edema blood-glucose,hydroelectric machinery mechanic helper,cont (FreeStyle Zunilda 3 [place]) As directed 1 ea 0RF E11.319 - Type 2 diabetes mellitus with unspecified diabetic retinopathy without macular edema blood-glucose,hydroelectric machinery mechanic helper,cont (FreeStyle Zunilda 3 [place]) As directed 1 ea 0RF E11.319 - Type 2 diabetes mellitus with unspecified diabetic retinopathy without macular edema Discontinued insulin U-500 syringe-needle (BD Insulin Syringe U-500) Discontinued Reason: Doctor's Order As directed daily 100 ea 1RF E11.9 - Type 2 diabetes mellitus without complications Patient Instructions: Take 15 carb carbohydrate grams to treat a low sugar (3-4 glucose tablets, half a glass of juice or 15 carbohydrate grams of soft candy such as gummie snacks). Recheck your sugar in 15 minutes and re-treat again with 15 carbohydrate grams if low or still with symptoms. Do not drive a car or operate machinery if you do not know what your blood sugar is, if it is low or in excess of 300. Coding Level of Care Code Est Pt Level 4 (29642) Complex EM visit Add On G2211 Diagnoses Diabetes type 2, controlled E11.9 Time Spent (min) 30 Comment Time spent reviewing labs/provider notes, face to face, chart doc
[2024-09-30 09:13] VITALS: BP 126/68; PULSE 63; BMI 27.8
--- OUTSIDE RECORDS SUMMARY | 2024-09-30 09:18 | XMS_ITS | Encounter Summary ---
Author Organization [employer] Address [address] [facility] [address] [place] [address] Care Team Providers Care Business Risk Analyst Name Role Phone Cherrie Gómez MD Primary Care Provide r Reason for Visit * Reason Onset Date Comments Med Refill 08/15/2023 Encounter Details Date Type Department Care Team ([facility] Contact Info) Description 08/15/2023 Telephone [facility] [address] [place] [address] Cherrie Gómez MD [address] [place] [address] Med Refill Social History Tobacco Use Types Packs/Day Years Used Date Smoking Tobacco: Former Cigarettes Q uit: 2018 Smokeless Tobacco: Never Alcohol Use Standard Drinks/Week Comments Never 0 (1 standard drink = 0.6 oz pur e alcohol) Depression Answer Date Recorded Patient Health Questionnaire-9 Score 20 05/02/2023 Patient Health Questionnaire-9 Score 20 05/02/2023 Last PHQ-9: Questionnaire Data Not on file 1 07/03/2022 Housing Stability Answer Date Recorded What is your housing situation today? I have flo miller 03/04/[address] you li ve. Do you have problems with any of the following? None of the above 03/04/2023 Food Insecurity Answer Date Recorded Within the past 12 months, y ou worried that your food would run out before you got money to buy more: Never True 03/04/2023 Within the past 12 months,th e food you bought just didn't last and you didn't have enough money to get more: Never True Transportation Answer Date Recorded In the past 12 months, has l ack of transportation kept you from medical appts, meetings, work or from getting things needed for daily living? No 03/04/2023 Utilities Answer Date Recorded In the past 12 months, has t he electric, gas, oil or water company threatened to shut off services in your home? No 03/04/2023 Depression Answer Date Recorded Patient Health Questionnaire-2 Score 5 05/02/2023 Comments Unknown Sex and Gender Information Value Date Recorded Sex Assigned at Female 03/19/2022 10:14 AM EDT Legal Sex Female 10:14 AM EDT Gender Identity Female 03/19/2022 10:14 AM EDT Sexual Orientation Choose not to disclose 2021 10:14 AM EDT documented as of this encounter Miscellaneous Notes * Telephone Encounter - Nancy Butler LPN - 08/15/2023 11:30 AM EDT Medication pended to PCP. * Telephone Encounter - Jame Anguiano - 08/15/2023 11:26 AM EDT TC from pt requesting medication refill. Medications needing refill : meclizine (Antivert) 25 MG tablet To be sent to: [facility] [address] [place] [address] documented in this encounter Plan of Treatment Upcoming Encounters Date Type Department Care Team (Late st Contact Info) Description 10/08/2024 1:45 PM EDT Office Visit [facility] [address] [place] [address] Cherrie Gómez MD [address] [place] [address] 10/26/2024 1:45 PM EDT Office Visit [facility] [address] [place], [place] [id number] Gena Gallagher, OD [address] [place] [address] documented as of this encounter Visit Diagnoses Not on filedocumented in this encounter Additional Health Concerns Assessment Noted Time PHQ-9 Depression Total Score: 20 023 2:53 PM EST documented as of this encounter Care Teams Business Risk Analyst Relationship Specialty Start Date End Date Cherrie Gómez MD [address] [place] [id number] PCP - General Family Medicine 11/05/19 [facility] 08/06/19 documented as of this encounter
--- OUTSIDE RECORDS SUMMARY | 2024-09-30 09:18 | XMS_ITS | Encounter Summary ---
Author Organization [employer] Address [address] [facility] [address] [place] [address] Care Team Providers Care Energy Broker Name Role Phone Cherrie Gómez MD Primary Care Provide r Reason for Visit * Reason Comments Med Refill Encounter Details Date Type Department Care Team ([facility] Contact Info) Description 05/17/2023 Refill [facility] [address] [place] [address] Cherrie Gómez MD [address] [place] [address] Type 2 diabetes mellitus without complications (CMS/HCC) Social History Tobacco Use Types Packs/Day Years [...] AM EDT documented as of this encounter Plan of Treatment Upcoming Encounters Date Type Department Care Team (Late st Contact Info) Description 10/08/2024 1:45 PM EDT Office Visit [facility] [address] [place] [address] Cherrie Gómez MD [address] [place] [address] 10/26/2024 1:45 PM EDT Office Visit [facility] [address] [place] [address] Tarfrantz Gena, OD [address] [place] [address] documented as of this encounter Visit Diagnoses Diagnosis Type 2 diabetes mellitus without complications (CMS/HCC) documented in this encounter Additional Health Concerns Assessment Noted Time PHQ-9 Depression Total Score: 20 023 2:53 PM EST documented as of this encounter Care Teams Energy Broker Relationship Specialty Start Date End Date Cherrie Gómez MD [address] [place] [address] PCP - General Family Medicine 11/05/19 [facility] 08/06/19 documented as of this encounter
--- OUTSIDE RECORDS SUMMARY | 2024-09-30 09:18 | XMS_ITS | Clinical Summary ---
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 Active gabapentin (Neurontin) 300 MG capsule Take 300 mg by mouth at bedtime. Active metoprolol succinate XL (Toprol-XL) 25 MG 24 hr tablet Take by mouth. Do not crush or chew. Active simethicone (Mylicon) 125 MG chewable tablet Chew 3 times daily. Active traZODone (Desyrel) 100 MG tablet Take 100 mg by mouth at bedtime. Active aspirin 81 MG EC tablet Take 81 mg by mouth in the morning. Active Multiple Vitamin (multivitamin) capsule Take 1 capsule by mouth in the morning. Active FREESTYLE LITE test stripIndication s:Type 2 diabetes mellitus with stage 3 chronic kidney disease, without long-term current use of insulin, unspecified whether stage 3a or 3b CKD (CMS/[facility]) Use to test blood sugar 3 times daily 100 each 12 10/08/19 24 025 Active Lancets misc Use to test blood sugar 3 times daily 100 each 10/08/19 24 Active atorvastatin (Lipitor) 80 MG tabletIndicatio ns:Hyperlipidem ia associated with type 2 diabetes mellitus (CMS/HCC) TOME NEELAM TABLETA POR VIA ORAL ONCE DAILY AT BEDTIME 90 tablet 3 12/26/19 24 Active Alcohol Swabs ([employer] Prep) 70 % pads USE TO TEST BLOOD SUGAR 3 TIMES DAILY 100 each 5 02/07/20 24 Active oxybutynin (Ditropan) 5 MG tabletIndicatio ns:Overactive bladder TOME 1 TABLETA POR VIA ORAL DOS VECES AL ARGELIA 180 tablet 1 04/13/20 24 Active ferrous sulfate 325 (65 Fe) MG tabletIndicatio ns:Anemia, unspecified type TOME NEELAM TABLETA CADA 12 HORAS 180 tablet 1 04/13/20 24 Active insulin pen needle (BD Pen Needle Vaishali 2nd Gen) 32G x 4 mm miscIndications :Type 2 diabetes mellitus with stage 3 chronic kidney disease, without long-term current use of insulin, unspecified whether stage 3a or 3b CKD (CMS/HCC) USE WITH INSULIN ONCE DAILY at bed time 100 each 3 05/12/20 24 Active furosemide (Lasix) 20 MG tabletIndicatio ns:Edema, unspecified type,HOWARD (dyspnea on exertion),Weigh t gain Take 1 tablet (20 mg) by mouth if needed each day (weight gain > 3 lbs in one day). 90 tablet 05/22/19 25 026 Active escitalopram (Lexapro) 10 MG tablet Take 2 tablets (20 mg) by mouth Once per day. 180 tablet 05/22/19 25 Active insulin glargine (Lantus SoloStar) 100 UNIT/ML penIndications: Type 2 diabetes mellitus with stage 3 chronic kidney disease, without long-term current use of insulin, unspecified whether stage 3a or 3b CKD (CMS/HCC) Inject 20 Units under the skin in the morning. 15 mL 1 05/22/19 25 Active cholecalciferol (D3) 50 MCG (2000 UT) tablet Take 2,000 Units by mouth Once per day. TOME NEELAM TABLETA POR VIA ORAL EN LA MANANA 90 tablet 1 09/02/19 25 Active meclizine (Antivert) 25 MG tablet TAKE 1 TABLET BY MOUTH IN THE MORNING, AT NOON, AND BEDTIME NEEDED FOR DIZZINESS 30 tablet 1 09/02/19 25 Active metFORMIN (Glucophage) 1000 MG tablet Take 1 tablet (1,000 mg) by mouth with breakfast and with evening meal. 180 tablet 09/02/19 25 Active Calcium Carb-Cholecalci ferol 600-10 MG-MCG tablet Take 1 tablet by mouth 2 times daily. TAKE 1 TABLET BY MOUTH TWICE A DAY 180 tablet 1 09/09/19 25 Active Calcium Carb-Cholecalci ferol 600-10 MG-MCG tablet Take 1 tablet by mouth 2 times daily. TAKE 1 TABLET BY MOUTH TWICE A DAY 180 tablet 1 02/17/20 24 025 Discontinued Active Problems Problem Noted Date Diagnosed Date S/P placement of cardiac pacemaker 04/23/2024 Assessment & Plan (04/23/2024 3:03 PM EST): Patient has being stable continue to follow with cardiology Open fracture of tooth 02/05/2024 Retained dental root 01/03/2024 Cognitive impairment 12/16/2023 Assessment & Plan (05/21/2024 12:02 PM EST): Awaiting evaluation with memory clinic PCP started Namenda, will increase to 10mg F/u with PCP scheduled May 25, 2024 Encounter for screening mamm ogram for malignant neoplasm of breast 12/16/2023 Frequent falls 10/30/2023 Assessment & Plan (10/30/2023 11:13 AM EDT): Home PT order for VNA services today Fall 10/29/2023 Assessment & Plan (10/29/2023 4:27 PM EDT): Patient here accompanied by her daughter s/p fall while at home yesterday while walking from the bedroom to the bathroom Pt landed on her right side hitting her head against the bureau. Pt reports a similar fall this past Saturday. Pt reports feeling dfizzy all the time Recent CT brain ordered for dizziness normal. EKG today shows bradycardia. Pt seen recently by Cardiology who reviewed her ECHO and ordered a pharmacologic stress test. I have discussed with patient my concerns that her uncontrolled DM and sinus bradycardia may be contributing to her dizziness and falls Plan: Follow up with Cardiology for stress testing and consideration of pace maker. Working towards better control of DM, started on Insulin, follow up with Endocrinology. PT evaluation. Minimize risk of falls, Use of walker and bedside commode to avoid falls UTI symptoms 10/25/2023 Assessment & Plan (05/21/2024 12:00 PM EST): Will treat with Cefixime 300mg daily x 7 days (renally dosed) Treat with vaginal fluconazole for yeast infection Change bed pads and diapers often, every 2-3 hours Assessment & Plan (10/25/2023 1:55 PM EDT): UA compatible with UTI Bactrim prescribed Culture send, patient to be contacted if antibiotic needs to be change Chronic diastolic heart failure 10/25/2023 Assessment & Plan (10/25/2023 1:53 PM EDT): Continue to monitor weight C/w current medications, f/u with cardiology, plan is also pacemaker If LE edema, SOB, dizziness, palpitations seek medical attention immediatly Mixed stress and urge urinary incontinence 09/15 Assessment & Plan (10/25/2023 1:54 PM EDT): Patient has upcoming appointment with urogynecology I will prescribe for her supplies (pull ups, wipes and bed pads) Incomplete defecation 09/16/2023 Type 2 diabetes mellitus wit h chronic kidney disease, without long-term current use of insulin 07/17/2023 Assessment & Plan (07/14/2024 5:08 PM EST): Diabetes is: not controlled - Lab Results Component Value Date HGBA1C 9.6 (A) 07/14/2024 HGBA1C 9.6 (A) 10/25/2023 HGBA1C 8.3 (A) 09/16/2023 - Lab Results Component Value Date MICROALBUR 9.0 10/18/2023 CREATININE 1.15 05/06/2024 -Changes: Extensive counseling about diabetic diet done - Diabetic eye exam: Up-to-date - Diabetic foot exam: Up-to-date - Continue lifestyle modifications - Continue current medications - Follow up: with endocrinology as scheduled Assessment & Plan (04/23/2024 3:03 PM EST): Stable c/w current interventions Assessment & Plan (12/16/2023 3:42 PM EDT): Diabetes is: not controlled - Lab Results Component Value Date HGBA1C 9.6 (A) 10/25/2023 HGBA1C 8.3 (A) 09/16/2023 HGBA1C 7.0 (A) 06/17/2023 - Lab Results Component Value Date MICROALBUR 9.0 10/18/2023 CREATININE 1.31 12/04/2023 -Changes: Patient is now being manage by endocrinology tasneem ortiz DC she is just on insulin now - Diabetic eye exam:up to date - Diabetic foot exam:pending - Continue lifestyle modifications - Continue current medications - Follow up: 3 months Assessment & Plan (10/30/2023 2:16 PM EDT): I will refill her pen needles VNA services will be call to approve insulin administration in the morning, after this appointment she has an appointment with endocrinology Assessment & Plan (10/29/2023 4:25 PM EDT): Poor control, despite tripel oral agents Metformin/Jardiance/Acarbose. Not a good candidate for GLP1 due ti gastroparesis Plan: Start Lantus 6 units at bedtime . Increase by 2 units every day if Fasting blood sugar > 140. Not to exceed 12 units. Pt's daughter will contact her Personnel Representative. Cannot go higher in the Jardiance pt already reporting Yeast infections as a result Follow up with PCP in 1 to 2 weeks Assessment & Plan (10/25/2023 1:57 PM EDT): Diabetes is: not controlled - Lab Results Component Value Date HGBA1C 9.6 (A) 10/25/2023 HGBA1C 8.3 (A) 09/16/2023 HGBA1C 7.0 (A) 06/17/2023 - Lab Results Component Value Date MICROALBUR 9.0 10/18/2023 CREATININE 1.16 10/18/2023 -Changes: to be done by endocrinology, today glucose [facility] I ordered at office humalog 10U - Diabetic eye exam:pending - Diabetic foot exam:pending - Continue lifestyle modifications - Continue current medications - Follow up: with endocrinology as scheduled Assessment & Plan (09/16/2023 2:46 PM EDT): Diabetes is: not controlled - Lab Results Component Value Date HGBA1C 8.3 (A) 09/16/2023 HGBA1C 7.0 (A) 06/17/2023 HGBA1C 6.5 (A) 02/18/2023 - Lab Results Component Value Date CREATININE 1.15 08/27/2023 -Changes: extensive counseling done about diet, patient admits she has being eating a lot of sweets lately - Diabetic eye exam:up to date - Diabetic foot exam:done today - Continue lifestyle modifications - Continue current medications - Follow up: 3 months Tremor 06/17/2023 Assessment & Plan (06/17/2023 4:40 PM EST): As above Unstable gait 06/17/2023 Assessment & Plan (06/17/2023 4:40 PM EST): As above Multiple food allergies 06/17/2023 Assessment & Plan (06/17/2023 4:40 PM EST): health program specialist referral Left arm pain 05/02/2023 Encounter for preventive care 05/02/2023 Assessment & Plan (05/02/2023 4:01 PM EST): See HPI Ill-fitting dentures 04/24/2023 Missing teeth, acquired 04/03/2023 Forgetfulness 03/21/2023 Assessment & Plan (10/25/2023 1:56 PM EDT): Referral information for neuropsychiatrist done Assessment & Plan (06/17/2023 4:40 PM EST): Referral to neurology for a second opinion done I explain to daughter I refer her once already but was told it was related to her mood disorder, dopler US of neck done was normal I will refer her for a second opinion Assessment & Plan (03/21/2023 11:16 AM EDT): Already being follow by neurology who feels it maybe related to her anxiety/depression, she will continue to follow up with psychiatry In the other hand it was prescribe memantine and she had felt some improvement, c/w medication as prescribe Bradycardia 03/20/2023 Assessment & Plan (10/30/2023 2:14 PM EDT): Patient being follow by cardiology Assessment & Plan (09/16/2023 2:45 PM EDT): I agree with plan of pacemaker, continue to follow closely by cardiology Assessment & Plan (05/02/2023 4:00 PM EST): Patient is known to have low HR she is being follow by cardiology Assessment & Plan (03/21/2023 11:11 AM EDT): This is well known in patient, continue to follow with cardiology Recurrent dental caries extending into dentin Dizziness 11/21/2022 Assessment & Plan (06/17/2023 4:42 PM EST): New referral to neurology done Followed by cardiology Carotid doppler is normal Patient also already referred to ENT Assessment & Plan (03/21/2023 11:13 AM EDT): Multifactorial F/u with ENT F/u with cardiology F/u with neurology Carotid US WNL I advise to change position slowly and maintain hydration Rollator already prescribed Assessment & Plan (02/19/2023 8:40 PM EDT): Pt with recurrent falls and episodes of dizziness w known orthostatic hypotension and symptoms from today that seems most likely vertigo - following with design engineer agricultural equipment ,From cards records -pt had a + Tilt test -echocardiogram 2019:Essentially normal study,Left Ventricle Normal left ventricular size, thickness, and systolic function. The visually estimated ejection fraction is between 55-60%. Spectral Doppler is indicative of a normal filling pattern. -Pharmacological stress test with Lexiscan injection 2018 :nondiagnostic EKG for ischemia. -bilateral carotid US 12/27/2022 : normal 12/2022 Hb wnl ,hb1AC today 6.5, CBg 171, TSH wnl ,cr 1.36 , AST 34,ALT 59 -EKG 11/2022 NSR, normal UT interval, HR 56x', TWI in lead III and Q wave in lead avL -pt has close to + orthostatic VS here in 11/2022 Apt -symptoms can be multifactorial including polypharmacy -per pt no longer taking gabapentin ,also to consider borderline HR , it is > 50s but in mid 50s on BB use that may cause as well symptoms -here 56x' in EKG w no AV blocks noted -advised to stand slowly -request today to nurse staff order for RW-prescribed before but never obtained -advised x hydration -px compression stockings rec in the pat by cards for her orthostasis but pt not using -requested again today to repeat order for compression stockings -will hold on midodrine x noted elevated BP w it in the past but will need to eval if persist orthostatic hypotension w dizziness -pt to f w her PCP to f labs and symptoms -apt was already scheduled for 03/20/2023 -pt was referred already to ENT at previous apt for likely vertigo w tinnitus and hearing loss --- ---- gave today information to pt to call for apt -will hold on ordering brain MRI given possibly done by neurologist and pt does not remember -if not done by her neurologist -pt will need to have brain image -trial w meclizne prn ,will hold steroids not convince symptoms are from Meniere;s dx-pt is poor historian -alarm signs and symptoms discussed w pt in case needs to go to ED Assessment & Plan (12/20/2022 4:33 PM EDT): Her dizziness is likely to be multifactorial patient has orthostatic hypotension, she has chronic diarrhea with constipation, also diabetes and is s/p bariatric surgery Carotid US not done patient now show to 2 appointments it was re-schedule again for 12/27/22 Labs not done I printed them today I referred to ENT for possible evaluation of vertigo Patient will be contacted with results Assessment & Plan (11/21/2022 6:39 PM EDT): Pt with recurrent falls and episodes of dizziness following with design engineer agricultural equipment From cards records -pt had a + Tilt test -echocardiogram 2019:Essentially normal study,Left Ventricle Normal left ventricular size, thickness, and systolic function. The visually estimated ejection fraction is between 55-60%. Spectral Doppler is indicative of a normal filling pattern. -Pharmacological stress test with Lexiscan injection 2018 :nondiagnostic EKG for ischemia. 07/2022 Hb 11.9, platelets 133 , 10/2022 6.9 ,AST 41,ALT 63,CBG Today is 131 -EKG today NSR, normal UT interval, HR 56x', TWI in lead III and Q wave in lead avL -pt has close to + orthostatic VS here -symptoms can be multifactorial including polypharmacy -may need to consider lowering or stopping gabapentin ? ,also to consider borderline HR , it is > 50s but in mid 50s on BB use that may cause as well symptoms -here 56x' in EKG w no AV blocks noted . Also will need to r/o anemia as cause however seems not severe so seems less likely to be the cause, pt reports on and off diarrhea tht may cause dehydration and orthostasis. Noted also weight loss 9 pounds in last 6 months -advised to stand slowly -gave today written prescription to nurse patsy x RW to avoid falls -advised x hydration -px compression stockings rec in the pat by cards for her orthostasis but pt not using -gave wristten Px to nurse staff -advised pt to f w her design engineer agricultural equipment for ongoing symptoms -I tried calling today pt's design engineer agricultural equipment but was not able to reach -will hold on midodrine x noted elevated BP w it in the past but will need to eval if persist orthostatic hypotension w dizziness -referred today x carotid US -will check labs -pt to f w her PCP to f labs,images and symptoms in 4 weeks and update screening as needed -alarm signs and symptoms discussed w pt in case needs to go to ED Memory loss 11/21/2022 Assessment & Plan (02/19/2023 8:26 PM EDT): Pt w noted significant memory loss and given possible multifactorial dizziness and multiple falls -referred already to neurologist -seen by Dr Pj -I tried calling his office today but was closed already--- ---- requested record to [facility] of last visit and image and test done Assessment & Plan (12/20/2022 4:35 PM EDT): neurology referral printed today for patient Assessment & Plan (11/21/2022 6:29 PM EDT): Pt w noted significant memory loss and given possible multifactorial dizziness and multiple falls - I am referring today to neurologist H/O laceration of skin 11/21/2022 Assessment & Plan (11/21/2022 6:32 PM EDT): Pt w large laceration from recent fall w no signs of infection, only mild erythema in small area but no increase temp nor drainage Pt reports pain w deep breathings in right side Normal lung exam -prescribed mupirocin TID x 10 days -lidocaine patch x pain and tylenol prn -CXR ordered today Generalized abdominal pain 10/18/2022 Assessment & Plan (10/19/2022 11:50 AM EDT): I advise patient to avoid NSAIDs, spicy and acid food, I advise to eat at the same time every day, I advise to elevate the head of the bed and take medications as prescribe She is already on PPI I added zofran today GI referral Colon cancer screening 10/18/2022 Atrial fibrillation 10/17/2022 Stage 3 chronic kidney disease 10/17/2022 Mixed anxiety and depressive disorder 10/17/2022 Irritable bowel syndrome with diarrhea Onychomycosis of toenail 10/17/2022 Pain in toe 10/17/2022 Complete edentulism, class III 08/17/2022 Paroxysmal atrial fibrillation 07/22/2018 Atrial flutter 02/27/2018 Chronic subdural hematoma 02/27/2018 Iron deficiency anemia 02/27/2018 Assessment & Plan (02/19/2023 8:25 PM EDT): Pt w hx of anemia from unclear [...] to f up w PCP next month Assessment & Plan (11/21/2022 6:36 PM EDT): Pt w hx of anemia from unclear source possible from bariatric surgery hx ? 07/2022 Hb 11.9, platelets 133 Denies hx of BBPR ,melenas nor hematuria -EGD 2018 : linear ulceration distal to anastomosis w neg bx x H pyori and x celiac sprue -colonoscopy 2018 Diverticulosis and #2 polyps ( hyperplastic and another tubular adenoma) to repeat in 5 years -cbc,iron panel, FOBT -continue iron BID -pt has apt w GI this month-per pt was told will have repeated colonoscopy -pt will f labs w PCP -may need to consider hematology referral if still anemic w no clear etiology and update screenings as needed Decreased thyroid stimulating hormone level 02/17 Chronic constipation 09/13/2017 Mood disorder 04/19/2017 Essential hypertension 04/19/2017 Assessment & Plan (04/23/2024 3:02 PM EST): Reports BP has being stable, I advised: - Aerobic exercise to reduce BP. Initial goal of 30 min walk 3-5x/week. Increase as tolerated. - low-sodium diet (goal: <2g/day) and heart healthy diet such as DASH to reduce BP and prevent ASCVD. - Home BP monitoring 1-2 x day with goal of <140/90. - Seek immediate medical attention for chest pain, palpitations, SOB, syncope, or sudden changes in mental status. - Do not change or discontinue current prescriptions without first consulting health care provider Assessment & Plan (12/16/2023 3:40 PM EDT): Maintenance: BMP: up to date Lipid Panel: ordered today - Aerobic exercise to reduce BP. Initial goal of 30 min walk 3-5x/week. Increase as tolerated. - low-sodium diet (goal: <2g/day) and heart healthy diet such as DASH to reduce BP and prevent ASCVD. - Home BP monitoring 1-2 x day with goal of <140/90. - Seek immediate medical attention for chest pain, palpitations, SOB, syncope, or sudden changes in mental status. - Do not change or discontinue current prescriptions without first consulting health care provider Assessment & Plan (10/25/2023 1:53 PM EDT): - Aerobic exercise to reduce BP. Initial goal of 30 min walk 3-5x/week. Increase as tolerated. - low-sodium diet (goal: <2g/day) and heart healthy diet such as DASH to reduce BP and prevent ASCVD. - Home BP monitoring 1-2 x day with goal of <140/90. - Seek immediate medical attention for chest pain, palpitations, SOB, syncope, or sudden changes in mental status. - Do not change or discontinue current prescriptions without first consulting health care provider Assessment & Plan (06/17/2023 4:31 PM EST): Maintenance: BMP: up to date Lipid Panel: up to date ASCVD Risk:on atorvastatin 80mg daily and ASA 81mg - Aerobic exercise to reduce BP. Initial goal of 30 min walk 3-5x/week. Increase as tolerated. - low-sodium diet (goal: <2g/day) and heart healthy diet such as DASH to reduce BP and prevent ASCVD. - Home BP monitoring 1-2 x day with goal of <140/90. - Seek immediate medical attention for chest pain, palpitations, SOB, syncope, or sudden changes in mental status. - Do not change or discontinue current prescriptions without first consulting health care provider Assessment & Plan (05/02/2023 4:00 PM EST): - Aerobic exercise to reduce BP. Initial goal of 30 min walk 3-5x/week. Increase as tolerated. - low-sodium diet (goal: <2g/day) and heart healthy diet such as DASH to reduce BP and prevent ASCVD. - Home BP monitoring 1-2 x day with goal of <140/90. - Seek immediate medical attention for chest pain, palpitations, SOB, syncope, or sudden changes in mental status. - Do not change or discontinue current prescriptions without first consulting health care provider Assessment & Plan (03/21/2023 11:10 AM EDT): - Aerobic exercise to reduce BP. Initial goal of 30 min walk 3-5x/week. Increase as tolerated. - low-sodium diet (goal: <2g/day) and heart healthy diet such as DASH to reduce BP and prevent ASCVD. - Home BP monitoring 1-2 x day with goal of <140/90. - Seek immediate medical attention for chest pain, palpitations, SOB, syncope, or sudden changes in mental status. - Do not change or discontinue current prescriptions without first consulting health care provider Assessment & Plan (10/19/2022 11:49 AM EDT): - Aerobic exercise to reduce BP. Initial goal of 30 min walk 3-5x/week. Increase as tolerated. - low-sodium diet (goal: <2g/day) and heart healthy diet such as DASH to reduce BP and prevent ASCVD. - Home BP monitoring 1-2 x day with goal of <140/90. - Seek immediate medical attention for chest pain, palpitations, SOB, syncope, or sudden changes in mental status. -Today I added lisinopril 2.5mg daily - Do not change or discontinue current prescriptions without first consulting health care provider Hiatal hernia 04/19/2017 History of cholecystectomy 04/19/2017 History of pubovaginal sling 04/19/2017 Hyperlipidemia associated with type 2 diabetes m ellitus 04/19/2017 Nonalcoholic steatohepatitis 04/19/2017 Obstructive sleep apnea syndrome 04/19/2017 Smoker 04/19/2017 Assessment & Plan (07/14/2024 5:09 PM EST): Counseling for smoking cessation on today Nicotine patches prescribed for patient Vitamin deficiency 04/19/2017 Resolved Problems Problem Noted Date Diagnosed Date Resolved Date Dental abscess 12/04/2022 10/08/2023 Type 2 diabetes mellitus without complication 04/19/20 17 10/08/2023 Assessment & Plan (06/17/2023 4:33 PM EST): - Lab Results Component Value Date HGBA1C 7.0 (A) 06/17/2023 HGBA1C 6.5 (A) 02/18/2023 HGBA1C 6.9 (A) 10/18/2022 - Lab Results Component Value Date CREATININE 1.18 02/18/2023 - Diabetic eye exam:up to date - Diabetic foot exam:patient will set an appointment with podiatry dr Hwang - Continue lifestyle modifications - Continue current medications Assessment & Plan (05/02/2023 4:01 PM EST): - Lab Results Component Value Date HGBA1C 6.5 (A) 02/18/2023 HGBA1C 6.9 (A) 10/18/2022 - Lab Results Component Value Date CREATININE 1.18 02/18/2023 - - Diabetic eye exam:up to date - Diabetic foot exam:pending - Continue lifestyle modifications - Continue current medications Assessment & Plan (03/20/2023 2:49 PM EDT): - Lab Results Component Value Date HGBA1C 6.5 (A) 02/18/2023 HGBA1C 6.9 (A) 10/18/2022 - Lab Results Component Value Date CREATININE 1.18 02/18/2023 - - Diabetic eye exam: up to date - Diabetic foot exam: pending - Continue lifestyle modifications - Continue current medications Assessment & Plan (10/19/2022 11:48 AM EDT): Extensive counseling done Patient iliana start diabetic diet, if A1c is persistently high on next visit I will start her on oral medications Encounters Date Type Department Care Team Description 09/28/2024 1:30 PM EDT Office Visit [facility] [address] [place] [address] Kasie-Herrera, Farheen, DDS Ill-fitting dentures (Primary Dx) 09/24/2024 1:00 PM EDT Office Visit [facility] [address] [place] [address] Farheen Rojas DDS Dental caries (Primary Dx); Ill-fitting dentures 09/22/[address] [address] Chery Bales RN Paperwork/Forms 09/07/2024 Refill [facility] [address] [place] [address] Cherrie Gómez MD 09/04/[address] [address] Cherrie Gómez MD Med Refill 08/31/[address] [address] Cherrie Gómez MD 07/27/2024 Orders Only [facility] [address] [place] [address] Cherrie Gómez MD 07/27/[address] [address] Cherrie Gómez MD FYI 07/24/2024 Orders Only GENERIC EXTERNAL DATA DEPARTMENT Provider, Generic External Data 07/15/[address] [address] Cherrie Gómez MD 07/14/2024 2:00 PM EST Office Visit [address] [address] Cherrie Góemz MD Screening for colon cancer (Primary Dx); Type 2 diabetes mellitus with stage 3 chronic kidney disease, without long-term current use of insulin, unspecified whether stage 3a or 3b CKD (CMS/HCC); Smoker; Encounter for screening mammogram for malignant neoplasm of breast 07/14/2024 Travel 07/09/[address] [address] Cherrie Gómez MD Chart Prep 07/08/2024 Orders Only GENERIC EXTERNAL DATA DEPARTMENT Provider, Generic External Data from Last 3 Months Immunizations Immunization Administration Dates Next Due Hep B, adult 06/17/2017,12/11/2006,11/06/2005 Influenza Injectable Quadriv alant Preservative Free IIV4 MDCK 02/15/2022,03/16/2021,03/07/2020 Influenza Quadrivalent Adjuvanted 01/30/2023 Influenza injectable quadriv alent IIV4 with preservative 02/27/2018,02/18/2017,02/10/2016 Influenza injectable quadriv alent preservative free 03/25/2019 Influenza, IIV3, injectable 06/14/2017 Influenza, Split (incl. virgen fied surface antigen) 01/22/2013,01/18/2012 Moderna Covid-19 Vaccine 6+ Bivalent 07/02/2022 Pfizer Covid-19 Vaccine 12+ 06/18/2023 Pneumococcal Conjugate PCV 20 05/02/2023 Pneumococcal Polysaccharide PPSV23 07/02/2018,,12/01/2007 Pneumococcal, Unspecified 12/01/2007 RSV Bivalent 07/11/2023 TD (adult), 2 Lf tetanus tox oid, preservative free, adsorbed 01/26/2005,05/09/1995 Td (adult), 5 Lf tetanus tox oid, preservative free, adsorbed 06/07/2014 Tdap 01/09/2016 Zoster, Recombinant 04/09/2023,02/05/2023 Zoster, live 06/04/2018 Social History Tobacco Use Types Packs/Day Years Used Date Smoking Tobacco: Every Day Cigarettes Last attempted to quit: 2018 Passive Smoke Exposure: Past Smokeless Tobacco: Never Tobacco Cessation:Ready to Q uit: Not Asked; Counseling Given: Not Answered Alcohol Use Standard Drinks/Week Comments Never 0 (1 standard drink = 0.6 oz pur e alcohol) Depression Answer Date Recorded Patient Health Questionnaire-9 Score 0 07/14/2024 Patient Health Questionnaire-9 Score 0 07/14/2024 Last PHQ-9: Questionnaire Data Not on file 0 07/14/2024 Housing Stability Answer Date Recorded What is [...] Answer Date Recorded Patient Health Questionnaire-2 Score 0 07/14/2024 Internet Access Answer Date Recorded Internet Access Q1 Yes 01/20/2024 Internet Access Q2 Not on file 01/20/2024 Comments Unknown Sex and Gender Information Value Date Recorded Sex Assigned at Female 03/19/2022 10:14 AM EDT Legal Sex Female 10:14 AM EDT Gender Identity Female 03/19/2022 10:14 AM EDT Sexual Orientation Choose not to disclose 2021 10:14 AM EDT Last Filed Vital Signs Vital Sign Reading Time Taken Comments Blood Pressure 130/80 09/28/2024 1:45 PM EDT Pulse 60 07/14/2024 2:14 PM EST Temperature 35.9 ??C (96.7 ??F) 07/14/2024 2:14 PM ES T Respiratory Rate 18 07/14/2024 2:14 PM EST Oxygen Saturation 97% 05/18/2024 3:35 PM EST Inhaled Oxygen Concentration - - Weight 76.6 kg (168 lb 12.8 oz) 07/14/2024 2:14 PM EST Height 160 cm (5' 3 ) 07/14/2024 2:14 PM EST Body Mass Index 29.9 07/14/2024 2:14 PM EST Plan of Treatment Upcoming Encounters Date Type Department Care Team (Late st Contact Info) Description 10/08/2024 1:45 PM EDT Office Visit [facility] [address] [place], [place] [phone] Cherrie Gómez MD [address] [place], [place] [phone] 10/26/2024 1:45 PM EDT Office Visit [facility] [address] [place], [place] [phone] Gena Gallagher, OD [address] [place] [address] Health Maintenance Due Date Last Done Comments CT Colonography 1957 Colonoscopy 1957 Colorectal Cancer Screening 1957 Dental X-Ray: Bitewings 1957 FIT DNA/Cologuard 1957 FIT 1957 FOBT 1957 Sigmoidoscopy 1957 Eye Exam 09/27/1967 Alcohol/Substance Use Screening 1969 Hepatitis A Vaccines (1 of 2 - Risk 2-dose series) 1976 Mammogram 08/24/2023 08/23/2021, 05/21, 06/15/2020, Additional history exists Dental Oral Exam 10/25/2023 04/24/2023 Dental Prophylaxis 12/13/2023 06/13/2023 COVID-19 Vaccine ( season) 2024 06/18/2023, 07/02/2022, 10/17/2021, Additional history exists Influenza Vaccine (#1) 2024 , 02/15/2022, 03/16/2021, Additional history exists Diabetes: Foot Exam 09/15/2024 09/16/2023, 09/16/2023, 09/16/2023, Additional history exists Diabetes: Hemoglobin A1C 10/11/2024 025, 10/25/2023, 09/16/2023, Additional history exists Lipid Panel 10/17/2024 10/18/2023 SDOH Screening 06/30/2025 06/30/2024 Depression Screening 07/14/2025 07/14/2024, 07/14/19 25 Tobacco Screening 09/28/2025 09/28/2024 DTaP/Tdap/Td Vaccines (2 - Td or Tdap) 01/08/2026 01/09/2016, 06/07/2014, 01/26/2005, Additional history exists Dental X-Ray: Full Mouth 02/05/2027 02/05/2024 Hepatitis B Vaccines Completed 06/17/2017, 12/11/2006, 11/06/2005 Cervical Cancer Screening Discontinued HPV/Cotest Discontinued 09/14/2021 Pap Smear Discontinued 09/14/2021 Hepatitis C Screening Completed 02/18/2023 Zoster Vaccines Completed 04/09/2023, 01/18, 06/04/2018 Pneumococcal Vaccine: 50+ Years Completed 05/02/2023, 07/02/2018, 06/14/2017, Additional history exists RSV Patients and Patients Aged 60 years or older Completed 07/11/2023 HIB Vaccines Aged Out No longer eligi ble based on patient's age to complete this topic HPV Vaccines Aged Out No longer eligi ble based on patient's age to complete this topic IPV Vaccines Aged Out No longer eligi ble based on patient's age to complete this topic Meningococcal Vaccine Aged Out No juwan gonzález eligible based on patient's age to complete this topic RSV under 20 months Aged Out No longe r eligible based on patient's age to complete this topic Rotavirus Vaccines Aged Out No longer eligible based on patient's age to complete this topic Procedures Procedure Name Priority Date/Time Associated Diagnosis Comments CASE PRESENTATION, DETAILED AND EXTENSIVE TREATMENT PLANNING Routine 09/28/2024 1:30 PM EDT Ill-fitting dentures RELINE COMPLETE MAXILLARY DENTURE (LABORATORY) Routine 09/28/2024 1:30 PM EDT Ill-fitting dentures CASE PRESENTATION, DETAILED AND EXTENSIVE TREATMENT PLANNING Routine 09/24/2024 1:00 PM EDT Dental caries Ill-fitting dentures INTRAORAL - PERIAPICAL FIRST RADIOGRAPHIC IMAGE Routine 09/24/2024 1:00 PM EDT Dental caries Ill-fitting dentures LIMITED ORAL EVALUATION - PROBLEM FOCUSED Routine 09/24/2024 1:00 PM EDT Dental caries Ill-fitting dentures GLUCOSE, WHOLE BLOOD Routine 07/24/2024 1:47 PM EST POCT GLYCATED HEMOGLOBIN, TOTAL Routine 07/14/2024 2:15 PM EST Type 2 diabetes mellitus with stage 3 chronic kidney disease, without long-term current use of insulin, unspecified whether stage 3a or 3b CKD ([facility]/HCC) POCT GLUCOSE Routine 07/14/2024 2:15 PM EST Type 2 diabetes mellitus with stage 3 chronic kidney disease, without long-term current use of insulin, unspecified whether stage 3a or 3b CKD (CMS/HCC) GLUCOSE, WHOLE BLOOD Routine 07/08/2024 2:14 PM EST PANORAMIC RADIOGRAPHIC IMAGE Routine 02/05/2024 8:00 AM EDT Open fracture of tooth, initial encounter Recurrent dental caries extending into dentin LIPID PANEL, STANDARD Routine 10/18/2023 11:32 AM EDT PROPHYLAXIS - ADULT Routine 06/13/2023 1 0:00 AM EST Dental calculus PERIODIC ORAL EVALUATION - ESTABLISHED PATIENT Routine 04/24/2023 2:30 PM EST HEPATITIS C AB W/REFL TO HCV RNA, QN, PCR Routine 02/18/2023 4:28 PM EDT Thrombocytopenia (CMS/HCC) THINPREP IMAGING PAP AND HPV MRNA E6/E7 WITH REFLEX TO HPV 16,18/45 Routine 09/14/2021 10:22 AM EDT MAMMOGRAM GENERIC Routine 08/23/2021 3:3 0 PM EDT from Last 3 Months or Most Recently Relevant to Health Maintenance Results * (ABNORMAL) Glucose, Whole Blood (07/24/2024 1:47 PM EST) Only the most recent of2 resultswithin the time period is included. Glucose, Whole Blood 338(H) 60 - 115 mg/dL [facility] Comment:METER #: [id number] 5Testing performed in the Endocrinology Department [address] , [address], [place] HUSSEIN. 07/24/2024 1:47 PM EST 07/24/2024 1:51 PM EST us Generic External Data Provider LAB BLOOD ORDERAB LES Final Result [facility] [address] [place] [address] [phone] * (ABNORMAL) POCT HGB A1C (07/14/2024 2:15 PM EST) Pathologist [facility] Hemoglobin A1C 9.6(A) 4.0 - 6.0 % QC Media Lot # [id number] Lot# Expiration Date 415 Blood 07/14/2024 2:15 PM EST Cherrie Paredes MD POINT OF CARE TEST EN TER/EDIT ORDERABLES Final Result * (ABNORMAL) POCT Glucose (07/14/2024 2:15 PM EST) [facility] Glucose Blood, POC 325(A) 60 - 200 mg/dL QC Media Lot # [id number] Lot# Expiration Date [id number] Blood Capillary blood specimen / Unknown 07/14/2024 2:15 PM EST Cherrie Paredes MD POINT OF CARE TEST EN TER/EDIT ORDERABLES Final Result * Lipid Panel, Standard (10/18/2023 11:32 AM EDT) [facility] Triglycerides 84 <150 mg/dL [facility] Comment:Desirable Triglyceri de: less than 150 mg/dLBorderline High Triglyceride 150-199 mg/dLHigh Triglyceride: 200-499 mg/dLVery High Triglyceride: greater than or equal to 5OO mg/dL Cholesterol 101 <200 mg/dL [facility] Comment:Desirable Cholestero l: less than 200 mg/dLBorderline High Cholesterol: 200-239 mg/dLHigh Cholesterol: greater than 239 mg/dL LDL Cholesterol Calculated 35 <100 mg/dL [facility] Comment:Desirable LDL: less than 100 mg/dLNear Optimal/Above Optimal LDL: 110- 129 mg/dLBorderline High LDL: 130-159 mg/dLHigh LDL: 160-189 mg/dLVery High LDL: greater than or equal to 190 mg/dL HDL Cholesterol 50 >40 mg/dL [facility] Comment:Desirable HDL: great er than 40 mg/dL Note: This HDL assay may give artificially low results in patients with liver disease. 10/18/2023 11:3 2 AM EDT 10/18/2023 11:32 AM EDT us Generic External Data Provider LAB BLOOD ORDERAB LES Final Result Performing Organization Address [facility]/ZIP Co de Phone Number [facility] [address] [place] [address] [phone] * Hepatitis C Antibody with Reflex to HCV, RNA, Quantitative, Real-Time PCR (02/18/2023 4:28 PM EDT) Pathologist [facility] Hepatitis C Antibody Nonreactive Nonreactive [facility] Comment:Antibodies to HCV no t detected; does not exclude early acuteHCV infection. Blood Venous blood specimen / Unknown 02/18/2023 4:28 PM EDT 02/18/2023 5:32 PM EDT us Cherrie Arzate MD LAB BLOOD ORDERAB LES Final Result Performing Organization Address [facility] Co de Phone Number [facility] [address] [place] [phone] * THINPREP TIS PAP AND HPV mRNA E6/E7 WITH REFLEX TO HPV 16,18/45 (09/14/2021 10:22 AM EDT) Pathologist [facility] Clinical Information: None given [facility] COMMENT SEE COMMENT [facility] Comment: EXPLANATORY NOTE: ? The Pap is a screening test for cervical cancer. It is ?? not a diagnostic test and is subject to false negative ?? and false positive results. It is most reliable when a ?? satisfactory sample, regularly obtained, is submitted ?? with relevant clinical findings and history, and when ?? the Pap result is evaluated along with historic and ?? current clinical information. ?? COMMENT: This Pap test has been evaluated with computer assisted technology. [facility] [employer]: SEE COMMENT [facility] Comment: RXB, CT(ASCP) CT screening location: [address] ??[id number] HPV nRNA E6/E7 Not Detected Not Detected [facility] Comment: Methodology: It Architecture Consultant-Mediated Amplification This assay detects E6/E7 viral messenger RNA (mRNA) from 14 high-risk HPV types (16,18,31,33,35,39,45,51,52,56,58,59,66,68). ? The analytical performance characteristics of this assay have been determined by [employer]. The modifications have not been cleared or approved by the FDA. This assay has been validated pursuant to the CLIA regulations and is used for clinical purposes. ?? For additional information, please refer to http://education.FaceRig/faq/UPM442z4 (This link if provided for information/ educational purposes only.) Interpretation/Re sult: Negative for intraepithelial lesion or malignancy. [facility] LMP: NONE GIVEN [facility] Prev. BX: NONE GIVEN [facility] Prev. PAP: NONE GIVEN [facility] SOURCE: None given [facility] Statement Of Adequacy: SEE COMMENT [facility] Comment: Satisfactory for evaluation. Endocervical/transformation zone component present. 09/14/2021 10:2 2 AM EDT us Cherrie Paredes MD LAB PATHOLOGY ORDERAB LES Final Result [facility] [address] * Mammography Report 1 (08/23/2021 3:30 PM EDT) Anatomical Region Laterality Modality Breast Bilateral Mammography 08/23/2021 3:30 PM EDT Narrative 08/24/2021 4:14 PM EDT Refer to the Notes tab for result details [facility] Procedure: Mammography Report 1 Procedure Note ProviderJaylene MD - 08/12/2022 Refer to the Notes tab for result details [facility] Procedure: Mammography Report 1 us Cherrie Paredes MD IMG BI PROCEDURES Fin al Result from Last 3 Months or Most Recently Relevant to Health Maintenance Insurance [facility] - [employer] Member Subscriber Plan / Payer (Ef fective 2024-Present) Name:Dana Winter Relation to Subscriber:Self Name:Dana Winter Payer ID:Not on file Group ID:[id number] Type:Not on file Address: [address] [employer] - [facility] Care Teams Flatbed Press Operator Relationship Specialty Start Date End Date Cherrie Gómez MD [address] [place] [phone] PCP - General Family Medicine 11/05/19 [facility] 08/06/19
--- OUTSIDE RECORDS SUMMARY | 2024-09-30 09:18 | XMS_ITS | Encounter Summary ---
Author Organization [employer] Address [address] [facility] [address] [place] [address] Care Team Providers Care Dermatopathologist Name Role Phone Cherrie Gómez MD Primary Care Provide r Encounter Details Date Type Department Care Team ([facility] Contact Info) Description 02/27/2023 Abstract [facility] [address] [place] [address] Cherrie Gómez MD [address] [place] [address] Social History Tobacco Use Types Packs/Day Years Used Date Smoking Tobacco: Former Cigarettes Q uit: 2018 Smokeless Tobacco: Never Alcohol Use Standard Drinks/Week Comments Never 0 (1 standard drink = 0.6 oz pur e alcohol) Depression Answer Date Recorded Patient Health Questionnaire-9 Score 16 10/18/2022 Housing Stability Answer Date Recorded What is your housing situation today? I have flo miller 02/27/[address] you li ve. Do you have problems with any of the following? None of the above 02/27/2023 Food Insecurity Answer Date Recorded Within the past 12 months, y ou worried that your food would run out before you got money to buy more: Never True 02/27/2023 Within the past 12 months,th e food you bought just didn't last and you didn't have enough money to get more: Never True 03/2023 Transportation Answer Date Recorded In the past 12 months, has l ack of transportation kept you from medical appts, meetings, work or from getting things needed for daily living? No 02/27/2023 Utilities Answer Date Recorded In the past 12 months, has t he electric, gas, oil or water company threatened to shut off services in your home? No 02/27/2023 Depression Answer Date Recorded Patient Health Questionnaire-2 Score 4 10/18/2022 Comments Unknown Sex and Gender Information Value [...] Description 10/08/2024 1:45 PM EDT Office Visit [facility] [address] [place] [address] Cherrie Gómez MD [address] [place] [address] 10/26/2024 1:45 PM EDT Office Visit [facility] [address] [place] [address] Tarka, Gena, OD [address] [place] [address] documented as of this encounter Visit Diagnoses Not on filedocumented in this encounter Additional Health Concerns Assessment Noted Time PHQ-9 Depression Total Score: 16 023 11:35 AM EDT documented as of this encounter Care Teams Dermatopathologist Relationship Specialty Start Date End Date Cherrie Gómez MD [address] [place] [phone] PCP - General Family Medicine 11/05/19 [facility] 08/06/19 documented as of this encounter
--- OUTSIDE RECORDS SUMMARY | 2024-09-30 09:18 | XMS_ITS | Encounter Summary ---
Author Organization [employer] Address [address] [place] [address] Care Team Providers Care Intern Product Marketing Manager Name Role Phone Cherrie Gómez MD Primary Care Provide r Encounter Details Date Type Department Care Team ([facility] Contact Info) Description 05/09/2023 Abstract [facility] [address] [place] [address] Farheen Rojas, DDS [address] [place] [address] Social History Tobacco Use Types Packs/Day Years [...] Office Visit [facility] [address] [place] [address] Cherrie Gómez MD [address] [place] [address] 10/26/2024 1:45 PM EDT Office Visit [facility] OPT[facility] [address] [place] [address] Gena Gallagher, OD [address] [place] [address] documented as of this encounter Visit Diagnoses Not on filedocumented in this encounter Additional Health Concerns Assessment Noted Time PHQ-9 Depression Total Score: 20 023 2:53 PM EST documented as of this encounter Care Teams Intern Product Marketing Manager Relationship Specialty Start Date End Date Cherrie Gómez MD [address] [place] [address] PCP - General Family Medicine 11/05/19 [facility] 08/06/19 documented as of this encounter
--- OUTSIDE RECORDS SUMMARY | 2024-09-30 09:18 | XMS_ITS | Encounter Summary ---
Author Organization [employer] Address [address] [place] [address] Care Team Providers Care Insurance Sales Specialist Name Role Phone Cherrie Gómez MD Primary Care Provide r Reason for Visit * Reason Onset Date Comments Nurse Triage 05/05/2024 Encounter Details Date Type Department Care Team ([facility] Contact Info) Description 05/05/2024 Telephone [facility] [address] [place] [address] Cherrie Gómez MD [address] [place] [address] Nurse Triage Social History Tobacco Use Types Packs/Day Years Used Date Smoking Tobacco: Former Cigarettes Q uit: 2018 Passive Smoke Exposure: Past Smokeless Tobacco: Never Alcohol Use Standard Drinks/Week [...] Recorded Patient Health Questionnaire-2 Score 5 05/02/2023 Internet Access Answer Date Recorded Internet Access [...] encounter Miscellaneous Notes * Telephone Encounter - Krystle Medrano RN - 05/05/2024 2:00 PM EST Call returned to Dana Winter to triage below. Spoke with daughter Stephen who is on HIPAA. Daughter reports pt has been missing appointments. Pt is refusing to pay for medications. Pt is smoking in the home. Pt is not taking care of herself. Pt daughter discussed these concerns with Psychiatrist. Pt is prescribed Lexapro in the morning. Per daughter pt has [facility] coming into the home daily. Daughter states [facility] requested that daughter speak with PCP to discuss possible invoking of HCP. Daughter also concerned that patient is refusing help and care of family . Denies any concerns for SI/HI. Daughter advised that patient is scheduled for a PHY appt on 05/25/24 with PCP. Nothing sooner. Will sendupdate to PCP to inform of concerns. Also provided daughter with contact for [facility] as a resources for any Therapy or Counseling or concerns for safety. Reviewed [facility] operating hours and that wait times vary. Reviewed home care advise, ER precautions and reasons to call back. Sent to PCP for review and FYI. Please advise Red Team Primary Care Nurses of any other recommendations or changes to plan of care. Protocol Used: Depression (Adult) Protocol-Based Disposition: See in Office or Video Visit within 3 Days Video visit offer not recorded Positive Triage Question: * Depression is getting worse (e.g.,sleeping poorly, less able to do activities of daily living) * All higher-acuity triage questions were negative Care Advice Discussed: * Note to Triager - Depression * Depression - Stay Active * Reasons To Call Back - You become worse * Telephone Encounter - Teresita Garrison - 05/05/2024 1:52 PM EST Symptom: Depression Outcome: Schedule an urgent appointment (within 4 hours) or talk to a nurse or provider soon Reason: Getting worse The caller accepted this outcome. documented in this encounter Plan of Treatment Upcoming Encounters Date Type Department Care Team (Late st Contact Info) Description 10/08/2024 1:45 PM EDT Office Visit [facility] [address] [place] [address] Cherrie Gómez MD [address] [place] [address] 10/26/2024 1:45 PM EDT Office Visit [facility] OPTOMETRY [address] [place] [address] Gena Gallagher, OD [address] [place] [address] documented as of this encounter Visit Diagnoses Not on filedocumented in this encounter Additional Health Concerns Assessment Noted Time PHQ-9 Depression Total Score: 20 023 2:53 PM EST documented as of this encounter Care Teams Insurance Sales Specialist Relationship Specialty Start Date End Date Cherrie Gómez MD [address] [place] [address] PCP - General Family Medicine 11/05/19 [facility] 08/06/19 documented as of this encounter
--- OUTSIDE RECORDS SUMMARY | 2024-09-30 09:18 | XMS_ITS | Encounter Summary ---
Author Organization [employer] Address [address] [place] [address] Care Team Providers Care Stone And Concrete Washer Name Role Phone Cherrie Gómez MD Primary Care Provide r Encounter Details Date Type Department Care Team ([facility] Contact Info) Description 04/13/2024 Telephone [facility] [address] [place] [address] Cherrie Gómez MD [address] [place] [address] Social History Tobacco Use Types Packs/Day Years [...] encounter Miscellaneous Notes * Telephone Encounter - Jose Francisco Beth - 04/13/2024 3:34 PM EST Blister packs all meds documented in this encounter Plan of Treatment Upcoming Encounters Date Type Department Care Team (Late st Contact Info) Description 10/08/2024 1:45 PM EDT Office Visit [facility] [address] [place] [address] Cherrie Gómez MD [address] [place] [address] 10/26/2024 1:45 PM EDT Office Visit [facility] OPT[facility] [address] [place] [address] Gena Gallagher, OD [address] [place] [address] documented as of this encounter Visit Diagnoses Not on filedocumented in this encounter Additional Health Concerns Assessment Noted Time PHQ-9 Depression Total Score: 20 023 2:53 PM EST documented as of this encounter Care Teams Stone And Concrete Washer Relationship Specialty Start Date End Date Cherrie Gómez MD [address] [place] [address] PCP - General Family Medicine 11/05/19 [facility] 08/06/19 documented as of this encounter
--- OUTSIDE RECORDS SUMMARY | 2024-09-30 09:18 | XMS_ITS | Encounter Summary ---
Author Organization [employer] Address [address] [facility] [address] 7t [place] [address] Care Team Providers Care Putty Remover Name Role Phone Cherrie Gómez MD Primary Care Provide r Encounter Details Date Type Department Care Team ([facility] Contact Info) Description 03/07/2023 Telephone [facility] MEDICINE [address] [place] [address] Cherrie Gómez MD [address] [place] [address] Social History Tobacco Use Types Packs/Day Years [...] [facility] MEDICINE [address] [place] [address] Cherrie Gómez MD [address] [place] [address] 10/26/2024 1:45 PM EDT Office Visit [facility] OPTOMETRY [address] [place] [address] Tarka, Gena, OD [address] [place] [address] documented as of this encounter Visit Diagnoses Not on filedocumented in this encounter Additional Health Concerns Assessment Noted Time PHQ-9 Depression Total Score: 16 023 11:35 AM EDT documented as of this encounter Care Teams Putty Remover Relationship Specialty Start Date End Date Cherrie Gómez MD [address] [place] [address] PCP - General Family Medicine 11/05/19 [facility] 08/06/19 documented as of this encounter
--- OUTSIDE RECORDS SUMMARY | 2024-09-30 09:18 | XMS_ITS | Encounter Summary ---
Author Organization [employer] Address [address] [facility] 7t [place] [address] Care Team Providers Care Coremaking Supervisor Name Role Phone Cherrie Gómez MD Primary Care Provide r Reason for Visit * Reason Onset Date Comments Hospital Follow-up 05/06/2024 Encounter Details Date Type Department Care Team ([facility] Contact Info) Description 05/06/2024 Telephone [facility] MEDICINE [address] [place] [address] Cherrie Gómez MD [address] [place] [address] Hospital Follow-up Social History Tobacco Use Types Packs/Day Years [...] encounter Miscellaneous Notes * Telephone Encounter - Irma Garcia RN - 05/06/2024 3:01 PM EST Triage call daughter, MAYURI, reports Pt was seen in [facility] ED 05/06/24 for UTI. Pt didn't have any symptoms of urinary tract infection but, had some confusion which still isn't resolved. Daughter reports on the way to pharmacy during this call to obtain antibiotics which will be started at home today.Encouraged to drink adequate liquids which may be difficult at times. ASK apt 05/18/24 @ 330pm withDr. Robertson. Home care is reviewed . Daughter agrees with disposition. Insurance is verified as active prior to booking. Will request information from [facility] visit 05/06/24 be obtained for chart. Protocol Used: Urinary Tract Infection on Antibiotic Follow-up Call - Female (Adult) Protocol-Based Disposition: See in Office or Video Visit within 3 Days Override (Final) Disposition: See in Office or Video Visit within 2 Weeks Override Reason: Other Override Notes: seen in ED 05/06/24 Positive Triage Question: * Diabetes mellitus or weak immune system (e.g., HIV positive, cancer chemo, splenectomy, organ transplant, chronic steroids) * All higher-acuity triage questions were negative Care Advice Discussed: * Drink Extra Fluids * Reasons To Call Back - Fever lasts over 24 hours on antibiotics - Pain does not improve by day 4 on antibiotics - Urine symptoms do not improve by day 4 on antibiotics - You become worse * Telephone Encounter - Irma Garcia RN - 05/06/2024 2:05 PM EST Triage call with [facility] rehab care assistant , [place] [address]. Call to [phone] no answer, voice mail message left to call [facility] [phone]. Call to [phone], no answer. Left voice message to call [facility] [phone] * Telephone Encounter - Sincere Chang - 05/06/2024 12:09 PM EST Tc from pt requesting a HDF appt. Hospital: [facility] Date of admission: 05/06/2024 Discharge date: 05/06/2024 Diagnosed: UTI *Send message to [place] Clinical Care Coordinators documented in this encounter Plan of Treatment Upcoming Encounters Date Type Department Care Team (Late st Contact Info) Description 10/08/2024 1:45 PM EDT Office Visit [facility] MEDICINE [address] [place] [address] Cherrie Gómez MD 230 [place] [address] 10/26/2024 1:45 PM EDT Office Visit [facility] OPTOMETRY [address] [place] [address] Gena Gallagher, CRISTI [address] [place] [address] documented as of this encounter Visit Diagnoses Not on filedocumented in this encounter Additional Health Concerns Assessment Noted Time PHQ-9 Depression Total Score: 20 12/14/2 023 2:53 PM EST documented as of this encounter Care Teams Coremaking Supervisor Relationship Specialty Start Date End Date Cherrie Gómez MD [address] [place] [address] PCP - General Family Medicine 11/05/19 [facility] 08/06/19 documented as of this encounter
--- OUTSIDE RECORDS SUMMARY | 2024-09-30 09:19 | XMS_ITS | Encounter Summary ---
Author Organization [employer] Address [address] [facility] 7t [place] [address] Care Team Providers Care Floatlight Powder Mixer Name Role Phone Cherrie Gómez MD Primary Care Provide r Encounter Details Date Type Department Care Team (Latest Contact Info) Description 01/22/2019 Abstract [facility] CONVERSIONS Dental, Provider, DDS Social History Tobacco Use Types Packs/Day Years Used Date Smoking Tobacco: Never Assessed Comments Unknown Sex and Gender Information Value [...] Description 10/08/2024 1:45 PM EDT Office Visit [facility] MEDICINE [address] [place] [address] Cherrie Gómez MD 230 [place] [address] 10/26/2024 1:45 PM EDT Office Visit [facility] OPTOMETRY [address] [place] [address] Gena Gallagher, OD [address] [place] [address] documented as of this encounter Visit Diagnoses Not on filedocumented in this encounter Care Teams Floatlight Powder Mixer Relationship Specialty Start Date End Date Cherrie Gómez MD [address] [place] [address] PCP - General Family Medicine 11/05/19 [facility] 08/06/19 documented as of this encounter
--- OUTSIDE RECORDS SUMMARY | 2024-09-30 09:19 | XMS_ITS | Clinical Summary ---
Author Organization [facility] Address [address] [place] [address] DR LOPEZ BEATRIS JOVITA [phone] Phone Care Team Providers Care Paleology Professor Name Role Phone Cherrie Gómez MD Primary [...] 04/19/2017 05/23/2023 History of cholecystectomy 04/19/201705/23 Immunizations Immunization Administration Dates Next Due Influenza Split 01/22/2013,01/18/2012 [...] Exam 06/19/2020 Diabetes: Visual Foot Exam 06/19/2020 Diabetes: Hemoglobin A1C 01/25/2024 10/25/2023 Influenza Vaccine (Season Ended) 2025 01/30/2023, 02/15/2022, 03/16/2021, Additional history exists Pneumococcal Vaccine: 50+ Years Completed 05/02/2023, 07/02/2018, 06/14/2017, Additional history exists Pneumococcal Vaccine: Peds ( 0 to 5 Years) and At-Risk Patients (6 to 49 Years) Discontinued 05/02/2023, 07/02/2018, 06/14/2017, Additional history exists Insurance [facility] ([id number]) JOHNNY SAMSON [id number] [address] [id number] [facility] ([id number]) [place]NN[place]SON [phone] Care Teams Paleology Professor Relationship Specialty Start Date End Date Cherrie Gómez MD [address] [place] [address] [place] [phone] PCP - General 05/30/20
--- OUTSIDE RECORDS SUMMARY | 2024-09-30 09:19 | XMS_ITS | Encounter Summary ---
Author Organization [employer] Address [address] [facility] 7t [place] [address] Care Team Providers Care Roll Up Operator Name Role Phone Cherrie Gómez MD Primary Care Provide r Reason for Visit * Reason Onset Date Comments Med Refill 06/04/2024 Encounter Details Date Type Department Care Team ([facility] Contact Info) Description 06/04/2024 Telephone [facility] MEDICINE [address] [place] [address] Cherrie Gómez MD [address] [place] [address] Med Refill Social History Tobacco Use Types [...] Telephone Encounter - Nancy Butler LPN - 06/04/2024 10:13 AM EST Medication was sent to [facility] #[id number] on 04/13/24 90 day supply with 1 refill. * Telephone Encounter - Jess Lopez - 06/04/2024 9:48 AM EST TC from pt requesting medication refill. Medications needing refill : ferrous sulfate 325 (65 Fe) MG tablet To be sent to: [facility]/pharmacy #[id number] - [address] documented in this encounter Plan of Treatment Upcoming Encounters Date Type Department Care Team (Late st Contact Info) Description 10/08/2024 1:45 PM EDT Office Visit [facility] MEDICINE [address] [place] [address] Cherrie Gómez MD [address] [place] [address] 10/26/2024 1:45 PM EDT Office Visit [facility] OPT[facility] [address] [place], [place] [phone] Gena Gallagher, OD [address] [place] [address] documented as of this encounter Visit Diagnoses Not on filedocumented in this encounter Additional Health Concerns Assessment Noted Time PHQ-9 Depression Total Score: 20 023 2:53 PM EST documented as of this encounter Care Teams Roll Up Operator Relationship Specialty Start Date End Date Cherrie Gómez MD [address] [place], [place] [phone] PCP - General Family Medicine 11/05/19 [facility] 08/06/19 documented as of this encounter
--- OUTSIDE RECORDS SUMMARY | 2024-09-30 09:19 | XMS_ITS | Encounter Summary ---
Author Organization [employer] Address [address] [facility] 7t [place] [address] Care Team Providers Care Health Care Consultant Name Role Phone Cherrie Gómez MD Primary Care Provide r Encounter Details Date Type Department Care Team ([facility] st Contact Info) Description 10/17/2022 [facility] Health Information Management [address] [place] [address] Cherrie Gómez MD [address] [place] [address] Social History Tobacco Use Types Packs/Day Years Used Date Smoking Tobacco: Never Smokeless Tobacco: Never Alcohol Use Standard Drinks/Week Comments Never 0 (1 standard drink = 0.6 oz pur e alcohol) Depression Answer Date Recorded Patient Health Questionnaire-9 Score 16 10/18/2022 Depression Answer Date Recorded Patient Health Questionnaire-2 Score 4 10/18/2022 Comments Unknown Sex and Gender Information Value Date Recorded Sex Assigned at Female 03/19/2022 10:14 AM EDT Legal Sex Female 10:14 AM EDT Gender Identity Female 03/19/2022 10:14 AM EDT Sexual Orientation Choose not to disclose 2021 10:14 AM EDT COVID-19 Exposure Response Date Recorded In the last 10 days, have yo u been in contact with someone who was confirmed or suspected to have Coronavirus/COVID-19? No / Unsure 10/18/2022 10:53 AM EDT documented as of this encounter Functional Status * Over the past 2 weeks, how often have you been bothered by any of the following problems? Question Answer Date of Assessment Author Patient Health Questionnaire-2 Score 4 05/2022 11:35 AM Gucci Fishman * If you checked off any problems on this questionnaire so far, Question Answer Date of Assessment Author How difficult have these problems made it for you to do your work, take care of things at home, or get along with other people? Not difficult at all 10/18/2022 11:35 AM Gucci Fishman * Over the past 2 weeks, how often have you been bothered by any of the following problems? Question Answer Date of Assessment Author Little interest or pleasure in doing things Several days 10/18/2022 11:35 AM Gucci Fishman Feeling down, depressed, or hopeless Nearly every day 10/18/2022 11:35 AM Gucci Fishman Trouble falling or staying asleep, or sleeping too much Not at all 10/18/2022 11:35 AM Gucci Fishman Feeling tired or having little energy Nearly every day 10/18/2022 11:35 AM Gucci Fishman Poor appetite or overeating More than wright lf the days 10/18/2022 11:35 AM Gucci Fishman Feeling bad about yourself - or that you are a failure or have let yourself or your family down More than half the days 10/18/2022 11:35 AM Gucci Fishman Trouble concentrating on things, such as reading the newspaper or watching television Nearly every day 10/18/2022 11:35 AM Gucci Fishman Moving or speaking so slowly that other people could have noticed? Or the opposite - being so fidgety or restless that you have been moving around a lot more than usual. More than half the days 10/18/2022 11:35 AM Gucci Fishman Thoughts that you would be better off or hurting yourself in some way Not at all 10/18/2022 11:35 AM Gucci Fishman Patient Health Questionnaire-9 Score 16 10/18/2022 11:35 AM Gucci Fishman documented as of this encounter Plan of Treatment Upcoming Encounters Date Type Department Care Team (Late st Contact Info) Description 10/08/2024 1:45 PM EDT Office Visit [facility] MEDICINE [address] [place] [address] Cherrie Gómez MD [address] [place] [address] 10/26/2024 1:45 PM EDT Office Visit [facility] OPTOMETRY [address] [place], [place] [phone] Gena Gallagher, OD [address] [place] [address] documented as of this encounter Visit Diagnoses Not on filedocumented in this encounter Care Teams Health Care Consultant Relationship Specialty Start Date End Date Cherrie Gómez MD 230 [place] [address] PCP - General Family Medicine 11/05/19 [facility] 08/06/19 documented as of this encounter
--- OUTSIDE RECORDS SUMMARY | 2024-09-30 09:19 | XMS_ITS | Encounter Summary ---
Author Organization [employer] Address [address] [facility] 7t [place] [address] Care Team Providers Care Activities Attendant Name Role Phone Cherrie Gómez MD Primary Care Provide r Reason for Visit * Reason Onset Date Comments FYI 07/27/2024 Encounter Details Date Type Department Care Team ([facility] Contact Info) Description 07/27/2024 Telephone [facility] MEDICINE [address] [place] [address] Cherrie Gómez MD [address] [place] [address] FYI Social History Tobacco Use Types Packs/Day Years [...] encounter Miscellaneous Notes * Telephone Encounter - Chery Bales RN - 07/27/2024 11:47 AM EDT FYJerome REE reports is currently smoking cigarettes and not using nicotine patches, if you want to remove from current med list * Telephone Encounter - Rock Muller - 07/27/2024 11:02 AM EDT TC from [place] with [facility] Care Reports pt refusing to use niccotine patches . States will continue to smoke ciggaretts documented in this encounter Plan of Treatment Upcoming Encounters Date Type Department Care Team (Late st Contact Info) Description 10/08/2024 1:45 PM EDT Office Visit [facility] MEDICINE 230 [place], [place] [phone] Cherrie Gómez MD [address] [place] [address] 10/26/2024 1:45 PM EDT Office Visit [facility] OPTOMETRY [address] [place] [address] Sindyfrantz Gena, OD [address] [place], [place] [phone] documented as of this encounter Visit Diagnoses Not on filedocumented in this encounter Additional Health Concerns Assessment Noted Time PHQ-9 Depression Total Score: 0 07/14/19 25 2:16 PM EST documented as of this encounter Care Teams Activities Attendant Relationship Specialty Start Date End Date Cherrie Gómez MD 230 [place] [address] PCP - General Family Medicine 11/05/19 [facility] 08/06/19 documented as of this encounter
--- OUTSIDE RECORDS SUMMARY | 2024-09-30 09:19 | XMS_ITS | Encounter Summary ---
Author Organization [employer] Address [address] [facility] 7t [place] [address] Care Team Providers Care Educational Technology Specialist Name Role Phone Cherrie Gómez MD Primary Care Provide r Reason for Visit * Reason Onset Date Comments Med Refill 09/04/2024 Encounter Details Date Type Department Care Team ([facility] Contact Info) Description 09/04/2024 Telephone [facility] MEDICINE [address] [place] [address] Cherrie Gómez MD [address] [place] [address] Med Refill Social History Tobacco Use Types [...] encounter Miscellaneous Notes * Telephone Encounter - Yasemin Mc LPN - 09/04/2024 8:13 AM EDT Last seen 07.14.24 * Telephone Encounter - Allan Moreno - 09/04/2024 8:10 AM EDT TC from pt requesting medication refill. Medications needing refill : Calcium Carb-Cholecalciferol 600-10 MG-MCG tablet To be sent to: [facility]/pharmacy #[id number] [place], [place] - [address] [place] [address] documented in this encounter Plan of Treatment Upcoming Encounters Date Type Department Care Team (Late st Contact Info) Description 10/08/2024 1:45 PM EDT Office Visit [facility] MEDICINE [address] [place] [address] Cherrie Gómez MD [address] [place] [address] 10/26/2024 1:45 PM EDT Office Visit [facility] OPTOMETRY [address] [place] [address] Gena Gallagher, OD [address] [place] [address] documented as of this encounter Visit Diagnoses Not on filedocumented in this encounter Additional Health Concerns Assessment Noted Time PHQ-9 Depression Total Score: 0 07/14/19 25 2:16 PM EST documented as of this encounter Care Teams Educational Technology Specialist Relationship Specialty Start Date End Date Cherrie Gómez MD 230 [place] [address] PCP - General Family Medicine 11/05/19 [facility] 08/06/19 documented as of this encounter
--- OUTSIDE RECORDS SUMMARY | 2024-09-30 09:19 | XMS_ITS | Encounter Summary ---
Author Organization [email or web address] Address [address] [facility] 7t [place] [address] Care Team Providers Care Upset Welding Machine Operator Name Role Phone Cherrie Gómez MD Primary Care Provide r Encounter Details Date Type Department Care Team (Latest Contact Info) Description 11/14/2020 Abstract [facility] CONVERSIONS Dental, Provider, DDS Social History Tobacco [...] 1:45 PM EDT Office Visit [facility] MEDICINE [address] [place] [address] Cherrie Gómez MD [address] [place] [address] 10/26/2024 1:45 PM EDT Office Visit [facility] OPTOMETRY [address] [place] [address] Gena Gallagher, OD [address] [place] [address] documented as of this encounter Visit Diagnoses Not on filedocumented in this encounter Care Teams Upset Welding Machine Operator Relationship Specialty Start Date End Date Cherrie Gómez MD [address] [place] [address] PCP - General Family Medicine 11/05/19 [facility] 08/06/19 documented as of this encounter
--- OUTSIDE RECORDS SUMMARY | 2024-09-30 09:19 | XMS_ITS | Encounter Summary ---
Author Organization [employer] Address [address] [facility] 7t [place] [address] Care Team Providers Care Engine Wiper Name Role Phone Cherrie Gómez MD Primary Care Provide r Reason for Visit * Reason Onset Date Comments Referral 06/18/2023 Encounter Details Date Type Department Care Team ([facility] Contact Info) Description 06/18/2023 Telephone [facility] MEDICINE [address] [place] [address] Cherrie Gómez MD 230 [place] [address] Referral Social History Tobacco Use Types Packs/Day Years [...] encounter Miscellaneous Notes * Telephone Encounter - Madhavi Fernandez - 07/10/2023 1:12 PM EST Tc from pt daughter chad requesting status on referral. Please see previous notes. * Telephone Encounter - Jose Francisco Beth - 06/18/2023 11:26 AM EST TC from daughter requesting a location change of referral Location: [address] [place] [address] Date: N/A Time: N/A Specialty: Memory DX: Memory loss Daughter stated pt already has referral for [facility] neurology but [facility] informed them that pt will need to be seen at a different location due to dx. If any questions Daughter stated feel free to contact at [phone]. documented in this encounter Plan of Treatment Upcoming Encounters Date Type Department Care Team (Late st Contact Info) Description 10/08/2024 1:45 PM EDT Office Visit [facility] MEDICINE [address] [place] [address] Cherrie Gómez MD 230 [place], [place] [phone] 10/26/2024 1:45 PM EDT Office Visit [facility] [address] [place], [place] [phone] Gena Gallagher, OD [address] [place] [address] documented as of this encounter Visit Diagnoses Not on filedocumented in this encounter Additional Health Concerns Assessment Noted Time PHQ-9 Depression Total Score: 20 023 2:53 PM EST documented as of this encounter Care Teams Engine Wiper Relationship Specialty Start Date End Date Cherrie Gómez MD 230 [place], [place] [phone] PCP - General Family Medicine 11/05/19 [facility] 08/06/19 documented as of this encounter
--- OUTSIDE RECORDS SUMMARY | 2024-09-30 09:19 | XMS_ITS | Encounter Summary ---
Author Organization [employer] Address [address] [facility] 7t [place] [address] Care Team Providers Care Cyber Special Agent Name Role Phone Cherrie Gómez MD Primary Care Provide r Encounter Details Date Type Department Care Team (Late Contact Info) Description 01/29/2023 Telephone [facility] MEDICINE [address] [place] [phone] Cierra Andrade LPN Social History Tobacco Use Types Packs/Day Years [...] Encounters Date Type Department Care Team (Late Contact Info) Description 10/08/2024 1:45 PM EDT Office Visit [facility] MEDICINE [address] [place] [phone] Cherrie Gómez MD [address] [place] [phone] 10/26/2024 1:45 PM EDT Office Visit [facility] OPTOMETRY [address] [place] [address] Sindyfrantz Gena, OD [address] [place] [address] documented as of this encounter Visit Diagnoses Not on filedocumented in this encounter Additional Health Concerns Assessment Noted Time PHQ-9 Depression Total Score: 16 023 11:35 AM EDT documented as of this encounter Care Teams Cyber Special Agent Relationship Specialty Start Date End Date Cherrie Gómez MD [address] [place] [address] PCP - General Family Medicine 11/05/19 [facility] 08/06/19 documented as of this encounter
--- OUTSIDE RECORDS SUMMARY | 2024-09-30 09:19 | XMS_ITS | Encounter Summary ---
Author Organization [employer] Address [address] [facility] [address] 7t [place] [address] Care Team Providers Care Interventional Physiatrist Name Role Phone Cherrie Gómez MD Primary Care Provide r Encounter Details Date Type Department Care Team ([facility] st Contact Info) Description 05/22/2024 Orders Only [facility] MEDICINE [address] [place], [place] [phone] Martha Robertson MD [address] [place], [place] [phone] Edema, unspecified type; HOWARD (dyspnea on exertion); Weight gain; Type 2 diabetes mellitus with stage 3 chronic kidney disease, without long-term current use of insulin, unspecified whether stage 3a or 3b CKD (CMS/HCC) Social History Tobacco Use Types Packs/Day [...] Description 10/08/2024 1:45 PM EDT Office Visit [facility] MEDICINE [address] [place] [address] Cherrie Gómez MD [address] [place] [address] 10/26/2024 1:45 PM EDT Office Visit [facility] OPTOMETRY [address] [place] [address] Gena Gallagher, OD [address] [place] [address] documented as of this encounter Visit Diagnoses Diagnosis Edema, unspecified type HOWARD (dyspnea on exertion) Other dyspnea and respiratory abnormality Weight gain Other symptoms concerning nutrition, metabolism, and development Type 2 diabetes mellitus with stage 3 chronic kidney disease, without long-term current use of insulin, unspecified whether stage 3a or 3b CKD (CMS/HCC) documented in this encounter Additional Health Concerns Assessment Noted Time PHQ-9 Depression Total Score: 20 023 2:53 PM EST documented as of this encounter Care Teams Interventional Physiatrist Relationship Specialty Start Date End Date Cherrie Gómez MD [address] [place] [address] PCP - General Family Medicine 11/05/19 [facility] 08/06/19 documented as of this encounter
--- OUTSIDE RECORDS SUMMARY | 2024-09-30 09:19 | XMS_ITS | Encounter Summary ---
Author Organization [employer] Address 75 [facility] 7t [place] [address] Care Team Providers Care Synchronous Motor Assembler Name Role Phone Cherrie Gómez MD Primary Care Provide r Reason for Visit * Reason Onset Date Comments Med Refill 06/17/2023 Encounter Details Date Type Department Care Team ([facility] Contact Info) Description 06/17/2023 Telephone [facility] MEDICINE [address] [place] [address] Cherrie Gómez MD [address] [place] [address] Med Refill Social History Tobacco Use Types [...] Telephone Encounter - Nancy Butler LPN - 06/17/2023 4:25 PM EST Medication pended to PCP awaiting approval. * Telephone Encounter - Marry Lutz - 06/17/2023 4:21 PM EST TC from pt requesting medication refill. Medications needing refill : meclizine (Antivert) 25 MG tablet To be sent to: [facility]/pharmacy #[id number] [place] [address] - [address] [place] [address] documented in this encounter Plan of Treatment Upcoming Encounters Date Type Department Care Team (Late st Contact Info) Description 10/08/2024 1:45 PM EDT Office Visit [facility] MEDICINE [address] [place], [place] [phone] Cherrie Gómez MD [address] [place], [place] [phone] 10/26/2024 1:45 PM EDT Office Visit [facility] OPTOMETRY [address] [place], [place] [phone] Gena Gallagher, OD [address] [place] [address] documented as of this encounter Visit Diagnoses Not on filedocumented in this encounter Additional Health Concerns Assessment Noted Time PHQ-9 Depression Total Score: 20 023 2:53 PM EST documented as of this encounter Care Teams Synchronous Motor Assembler Relationship Specialty Start Date End Date Cherrie Gómez MD [address] [place] [address] PCP - General Family Medicine 11/05/19 [facility] 08/06/19 documented as of this encounter
--- OUTSIDE RECORDS SUMMARY | 2024-09-30 09:19 | XMS_ITS | Encounter Summary ---
Author Organization [employer] Address 75 [facility] 7t [place] [address] Care Team Providers Care Federal Agent Name Role Phone Cherrie Gómez MD Primary Care Provide r Reason for Visit * Reason Comments Med Refill Encounter Details Date Type Department Care Team ([facility] Contact Info) Description 04/23/2022 Refill [facility] MOBILE VACCINE CLINIC [address] [place] [address] Nancy Denny DO [address] [place] [address] Anemia, unspecified type Social History Tobacco Use Types Packs/Day Years [...] Upcoming Encounters Date Type Department Care Team ([facility] Contact Info) Description 10/08/2024 1:45 PM EDT Office Visit [facility] MEDICINE [address] [place] [address] Cherrie Gómez MD [address] [place] [address] 10/26/2024 1:45 PM EDT Office Visit [facility] OPTOMETRY [address] [place] [address] Sindyfrantz Gean, OD [address] [place] [address] documented as of this encounter Visit Diagnoses Diagnosis Anemia, unspecified type documented in this encounter Care Teams Federal Agent Relationship Specialty Start Date End Date Cherrie Gómez MD [address] [place] [address] PCP - General Family Medicine 11/05/19 [facility] 08/06/19 documented as of this encounter
--- OUTSIDE RECORDS SUMMARY | 2024-09-30 09:19 | XMS_ITS | Encounter Summary ---
Author Organization [employer] Address 75 [facility] 7t [place] [address] Care Team Providers Care Physical Therapist Name Role Phone Cherrie Gómez MD Primary Care Provide r Reason for Visit * Reason Comments Med Refill Encounter Details Date Type Department Care Team ([facility] Contact Info) Description 01/09/2023 Refill [facility] MEDICINE [address] [place] [address] Cherrie Gómez MD [address] [place] [address] Social History Tobacco Use Types Packs/Day Years [...] Upcoming Encounters Date Type Department Care Team ([facility] Contact Info) Description 10/08/2024 1:45 PM EDT Office Visit [facility] MEDICINE [address] [place] [address] Cherrie Gómez MD 230 [place] [address] 10/26/2024 1:45 PM EDT Office Visit [facility] OPTOMETRY [address] [place], [place] [phone] Sindyfrantz Gena, OD [address] [place], [place] [phone] documented as of this encounter Visit Diagnoses Not on filedocumented in this encounter Additional Health Concerns Assessment Noted Time PHQ-9 Depression Total Score: 16 023 11:35 AM EDT documented as of this encounter Care Teams Physical Therapist Relationship Specialty Start Date End Date Cherrie Gómez MD [address] [place], [place] [phone] PCP - General Family Medicine 11/05/19 [facility] 08/06/19 documented as of this encounter
--- OUTSIDE RECORDS SUMMARY | 2024-09-30 09:19 | XMS_ITS | Encounter Summary ---
Author Organization [employer] Address 75 [facility] 7t [place] [address] Care Team Providers Care Night Order Selector Name Role Phone Cherrie Gómez MD Primary Care Provide r Reason for Visit * Reason Onset Date Comments FYI 10/31/2023 Encounter Details Date Type Department Care Team ([facility] Contact Info) Description 10/31/2023 Telephone [facility] MEDICINE 230 [place] [address] Cherrie Gómez MD [address] [place] [address] FYI Social History Tobacco Use Types Packs/Day [...] Telephone Encounter - Chery Bales RN - 10/31/2023 1:45 PM EDT FYI note is in chart: Empagliflozin was stopped. Acarbose was stopped. After review with her [facility] Lantus dosing will be changed to 20 units in the am. [facility]NA will administer the dose for now as they would like to confirm her technique. She will see CDE in one week for training on a free style piedad 3 using a reciever and I will see her to review her blood sugars with her meter and at that time assess whether short acting insulin is needed. She is at a center during the day and is piked up by a bus at 7am and is seen by [facility] prior to getting on the bus * Telephone Encounter - Vinita Coats - 10/31/2023 12:44 PM EDT TC from [facility] calling to inform pt went to her endo appt and they increased lantus to 20 units and stopped medications acarbose (Precose) 25 MG tablet and Jardiance. documented in this encounter Plan of Treatment Upcoming Encounters Date Type Department Care Team (Late st Contact Info) Description 10/08/2024 1:45 PM EDT Office Visit [facility] MEDICINE [address] [place] [address] Cherrie Gómez MD [address] [place] [address] 10/26/2024 1:45 PM EDT Office Visit [facility] OPTOMETRY [address] [place] [address] Gena Gallagher, OD [address] [place] [address] documented as of this encounter Visit Diagnoses Not on filedocumented in this encounter Additional Health Concerns Assessment Noted Time PHQ-9 Depression Total Score: 20 023 2:53 PM EST documented as of this encounter Care Teams Night Order Selector Relationship Specialty Start Date End Date Cherrie Gómez MD [address] [place] [address] PCP - General Family Medicine 11/05/19 [facility] 08/06/19 documented as of this encounter
--- OUTSIDE RECORDS SUMMARY | 2024-09-30 09:19 | XMS_ITS | Encounter Summary ---
Author Organization [employer] Address 75 [facility] 7t [place] [address] Care Team Providers Care Flare Stitcher Name Role Phone Cherrie Gómez MD Primary Care Provide r Reason for Visit * Reason Comments Dentures Encounter Details Date Type Department Care Team ([facility] st Contact Info) Description 09/28/2024 1:30 PM EDT Office Visit [facility] ADULT DENTAL [address] [place] [address] Farheen Rojas, DDS [address] [place] [address] Ill-fitting dentures (Primary Dx) Social History Tobacco Use Types Packs/Day Years [...] AM EDT documented as of this encounter Last Filed Vital Signs Vital Sign Reading Time Taken Comments Blood Pressure 130/80 09/28/2024 1:45 PM EDT Pulse - - Temperature - - Respiratory Rate - - Oxygen Saturation - - Inhaled Oxygen Concentration - - Weight - - Height - - Body Mass Index - - documented in this encounter Progress Notes * Farheen Rojas DDS - 09/28/2024 1:30 PM EDT Patient ID: Dana Winter is a 69 y.o. female. Time Out: Timeout Date: 09/28/24, Timeout Time: 1344 (reline delivery) Location: [facility] Tooth: Maxilla Procedure: Dentures reline delivery Verified the above with patient, trading assistant, and provider. Confirmed via patient's chart, intraorally and by radiographs. At Risk Paraprofessional: not applicable Chief Complaint Patient presents with Dentures Medical Hx: Vitals: Blood pressure 130/80. Medications, Med Hx reviewed with patient and updated in chart. Consent Obtained: The risks, benefits, indications, potential complications, and alternatives were explained to the patient and informed consent was obtained with good understanding. Treatment Provided: Dental procedures in this visit D5750 - RELINE COMPLETE MAXILLARY DENTURE (LABORATORY) (Completed) Service provider: Farheen Rojas DDS Billing provider: Farheen Rojas DDS D9450 - CASE PRESENTATION, DETAILED AND EXTENSIVE TREATMENT PLANNING (Completed) Service provider: Farheen Rojas DDS Billing provider: Farheen Rojas DDS Tried in denture(s) -Evaluated for comfort, fit, phonetics, and stability (f, v, s, th sounds; swallow, yawn, etc) -Evaluated for satisfactory esthetics. -Occlusion verified; adjustments made as necessary. Patient has received information sheet for denture care and expectations. Pt was provided with denture case and denture brush. NV: 6 mo periodic exam Tax Assessor: JOHNNY Pretty Dentist: Farheen Rojas DDS documented in this encounter Plan of Treatment Upcoming Encounters Date Type Department Care Team (Late st Contact Info) Description 10/08/2024 1:45 PM EDT Office Visit [facility] MEDICINE [address] [place] [address] Cherrie Gómez MD [address] [place] [address] 10/26/2024 1:45 PM EDT Office Visit [facility] OPTOMETRY [address] [place] [address] Gena Gallagher, OD [address] [place] [address] documented as of this encounter Procedures Procedure Name Priority Date/Time Associated Diagnosis Comments RELINE COMPLETE MAXILLARY DENTURE (LABORATORY) Routine 09/28/2024 1:30 PM EDT Ill-fitting dentures CASE PRESENTATION, DETAILED AND EXTENSIVE TREATMENT PLANNING Routine 09/28/2024 1:30 PM EDT Ill-fitting dentures documented in this encounter Visit Diagnoses Diagnosis Ill-fitting dentures- Primary documented in this encounter Additional Health Concerns Assessment Noted Time PHQ-9 Depression Total Score: 0 07/14/19 2:16 PM EST documented as of this encounter Care Teams Flare Stitcher Relationship Specialty Start Date End Date Cherrie Gómez MD [address] [place] [address] PCP - General Family Medicine 11/05/19 [facility] 08/06/19 documented as of this encounter
--- OUTSIDE RECORDS SUMMARY | 2024-09-30 09:19 | XMS_ITS | Encounter Summary ---
Author Organization [employer] Address 75 [facility] 7t [place] [address] Care Team Providers Care Aviation Mechanic Name Role Phone Cherrie Gómez MD Primary Care Provide r Encounter Details Date Type Department Care Team ([facility] Contact Info) Description 01/09/2023 [facility] Health Information Management [address] [place], [place] [phone] Cherrie Gómez MD [address] [place], [place] [phone] Social History Tobacco Use Types Packs/Day Years [...] Upcoming Encounters Date Type Department Care Team ([facility] Contact Info) Description 10/08/2024 1:45 PM EDT Office Visit [facility] MEDICINE 230 [place], [place] [phone] Cherrie Gómez MD [address] [place] [address] 10/26/2024 1:45 PM EDT Office Visit [facility] OPTOMETRY [address] [place], [place] [phone] Sindyfrantz Gena, OD [address] [place], [place] [phone] documented as of this encounter Visit Diagnoses Not on filedocumented in this encounter Additional Health Concerns Assessment Noted Time PHQ-9 Depression Total Score: 16 023 11:35 AM EDT documented as of this encounter Care Teams Aviation Mechanic Relationship Specialty Start Date End Date Cherrie Gómez MD [address] [place] [address] PCP - General Family Medicine 11/05/19 [facility] 08/06/19 documented as of this encounter
--- OUTSIDE RECORDS SUMMARY | 2024-09-30 09:19 | XMS_ITS | Encounter Summary ---
Author Organization [employer] Address 75 [facility] 7t [place] [address] Care Team Providers Care Machinery Dismantler Name Role Phone Cherrie Gómez MD Primary Care Provide r Reason for Visit * Reason Onset Date Comments Med Refill 01/06/2024 Encounter Details Date Type Department Care Team ([facility] Contact Info) Description 01/06/2024 Telephone [facility] MED[facility]INE [address] [place] [address] Cherrie Gómez MD [address] [place] [address] Med Refill Social History Tobacco Use Types [...] Telephone Encounter - Nancy Butler LPN - 01/06/2024 8:10 AM EDT Medication pended to PCP. * Telephone Encounter - Marry Lutz - 01/06/2024 8:05 AM EDT TC from pt requesting medication refill. Medications needing refill : meclizine (Antivert) 25 MG tablet To be sent to: [facility]/pharmacy [address] [place] [address] documented in this encounter Plan of Treatment Upcoming Encounters Date Type Department Care Team (Late st Contact Info) Description 10/08/2024 1:45 PM EDT Office Visit [facility] MEDICINE [address] [place], [place] [phone] Cherrie Gómez MD [address] [place] [address] 10/26/2024 1:45 PM EDT Office Visit [facility] OPTOMETRY [address] [place], [place] [phone] Gena Gallagher, OD [address] [place] [address] documented as of this encounter Visit Diagnoses Not on filedocumented in this encounter Additional Health Concerns Assessment Noted Time PHQ-9 Depression Total Score: 20 023 2:53 PM EST documented as of this encounter Care Teams Machinery Dismantler Relationship Specialty Start Date End Date Cherrie Gómez MD [address] [place] [address] PCP - General Family Medicine 11/05/19 [facility] 08/06/19 documented as of this encounter
--- OUTSIDE RECORDS SUMMARY | 2024-09-30 09:19 | XMS_ITS | Clinical Summary ---
Author Organization [address] [place] [address] Address [address] [place] [address] Phone Care Team Providers Care Golf Tournament Consultant Name Role Phone Cherrie Gómez MD Primary Care Provide r Surgical History Surgery Date Site/Laterality Comments GASTRIC BYPASS PROCEDURE: GASTRIC BYPASS FOR OBESIT ABDOMINAL SURGERY PROCEDURE: HISTORICAL ABDOMINAL SURGERY BREAST REDUCTION PROCEDURE: [place] BREAST REDUCTION CHOLECYSTECTOMY PROCEDURE: [place] CHOLECYSTECTOMY FOOT SURGERY PROCEDURE: HISTORICAL FOOT SURGERY; COMMENT: right foot,little toe Medical History Medical History Date Comments Diabetes mellitus ([facility] V 24, CMS/HCC V28) DX:Diabetes mellitus (HCC) Anxiety DX:Anxiety Depression DX:Depression Paroxysmal atrial fibrillati on (CMS/HCC V24, CMS/HCC V28) DX:Paroxysmal atrial fibrill ation (HCC) Iron deficiency anemia DX:Iron d eficiency [...] Last Done Comments Breast Cancer Screening 1957 Diabetes: Annual GFR (Glomer ular Filtration Rate) 1957 Diabetes: Annual Foot Exam 09/27/1967 Diabetes: Annual Retina Eye Exam 09/27/1967 DTaP,Tdap,and Td Vaccines (1 - Tdap) 1976 Pneumococcal Vaccine: 50+ Ye ars (1 of 2 - PCV) 1976 Zoster Vaccines (1 of 2) 09/27/2007 RSV Immunization Adult Patie nts (1 - Risk 60-74 years 1-dose series) 2017 Cholesterol Screening (Lipid Panel) 04/22/2022 Colorectal Cancer Screening: Colonoscopy 04/22/2022 Depression Screening 04/22/2022 Hepatitis C Screening 04/22/2022 Medicare Annual Wellness Visit 04/22/2022 Osteoporosis Screening (Bone Density Screening) 04/22/2022 Social Influencers of Health Screening 04/22/2022 Falls Risk Assessment 2022 COVID-19 Vaccine ( - 2023-2 5 season) 2024 Diabetes: Annual Urine Albumin-Creatinine Ratio (uACR) 08/04/2024 Diabetes: Blood Sugar Contro l Test (HGBA1C) 08/04/2024 Influenza Vaccine (Season Ended) 2025 HIB Vaccines Aged Out No longer eligi [...] age to complete this topic Meningococcal B Vaccine Aged Out No l onger eligible based on patient's age to complete this topic RSV Immunization Patients Un ronal 20 months Aged Out No longer eligible b ased on patient's age to complete this topic Varicella Vaccines Aged Out No longer eligible based on patient's age to complete this topic Insurance [facility] MEDICARE Member Subscriber Plan / Payer (Ef fective 2024-Present) Name:Dana Winter Relation to Subscriber:Self Name:Dana Winter Payer ID:[id number] Group ID:[id number] Type:Not on file Address: [place] [address] [place] [id number] MEDICAID - [place] Care Teams Golf Tournament Consultant Relationship Specialty Start Date End Date Cherrie Gómez MD [address] [phone] PCP - General Internal Medicine 08/04/24
--- OUTSIDE RECORDS SUMMARY | 2024-09-30 09:19 | XMS_ITS | Encounter Summary ---
Author Organization [employer] Address 75 [facility] 7t [place] [address] Care Team Providers Care Melangeur Operator Name Role Phone Cherrie Gómez MD Primary Care Provide r Encounter Details Date Type Department Care Team (Latest Contact Info) Description 08/23/2021 Abstract [facility] CONVERSIONS Dental, Provider, DDS Social History Tobacco [...] Office Visit [facility] MEDICINE 230 [place] [address] Cherrie Gómez MD [address] [place] [address] 10/26/2024 1:45 PM EDT Office Visit [facility] OPTOMETRY [address] [place] [address] Gena Gallagher, OD [address] [place] [address] documented as of this encounter Visit Diagnoses Not on filedocumented in this encounter Care Teams Melangeur Operator Relationship Specialty Start Date End Date Cherrie Gómez MD [address] [place] [address] PCP - General Family Medicine 11/05/19 [facility] 08/06/19 documented as of this encounter
--- OUTSIDE RECORDS SUMMARY | 2024-09-30 09:19 | XMS_ITS | Encounter Summary ---
Author Organization [employer] Address [address] [facility] [address] 7t [place] [address] Care Team Providers Care Refrigerator Glazier Name Role Phone Cherrie Gómez MD Primary Care Provide r Encounter Details Date Type Department Care Team ([facility] Contact Info) Description 01/06/2024 Telephone [facility] ADULT DENTAL [address] [place] [address] Javon Johnson DDS [address] [place] [address] Social History Tobacco Use Types Packs/Day Years [...] encounter Miscellaneous Notes * Telephone Encounter - Lexy Devi - 01/06/2024 3:45 PM EDT Patient called she's in a lot of pain can u send her medication u saw her last week for extractions documented in this encounter Plan of Treatment Upcoming Encounters Date Type Department Care Team (Late st Contact Info) Description 10/08/2024 1:45 PM EDT Office Visit [facility] MEDICINE [address] [place] [address] Cherrie Gómez MD [address] [place] [address] 10/26/2024 1:45 PM EDT Office Visit [facility] OPTOMETRY [address] [place] [address] Gena Gallagher, OD [address] [place] [address] documented as of this encounter Visit Diagnoses Not on filedocumented in this encounter Additional Health Concerns Assessment Noted Time PHQ-9 Depression Total Score: 20 023 2:53 PM EST documented as of this encounter Care Teams Refrigerator Glazier Relationship Specialty Start Date End Date Cherrie Gómez MD [address] [place] [address] PCP - General Family Medicine 11/05/19 [facility] 08/06/19 documented as of this encounter
--- OUTSIDE RECORDS SUMMARY | 2024-09-30 09:19 | XMS_ITS | Encounter Summary ---
Author Organization [employer] Address [address] [facility] [address] 7t [place] [address] Care Team Providers Care Manager Family Name Role Phone Cherrie Gómez MD Primary Care Provide r Encounter Details Date Type Department Care Team ([facility] Contact Info) Description 07/27/2024 Orders Only [facility] MEDICINE [address] [place] [address] Cherrie Gómez MD [address] [place] [address] Social History Tobacco Use Types Packs/Day Years [...] Description 10/08/2024 1:45 PM EDT Office Visit [facility] MEDICINE [address] [place] [address] Cherrie Gómez MD [address] [place] [address] 10/26/2024 1:45 PM EDT Office Visit [facility] OPTOMETRY [address] [place] [address] TarkaGena, OD [address] [place] [address] documented as of this encounter Visit Diagnoses Not on filedocumented in this encounter Additional Health Concerns Assessment Noted Time PHQ-9 Depression Total Score: 0 07/14/19 25 2:16 PM EST documented as of this encounter Care Teams Manager Family Relationship Specialty Start Date End Date Cherrie Gómez MD [address] [place] [address] PCP - General Family Medicine 11/05/19 [facility] 08/06/19 documented as of this encounter
--- OUTSIDE RECORDS SUMMARY | 2024-09-30 09:19 | XMS_ITS | Encounter Summary ---
Author Organization [employer] Address 75 [facility] 7t [place] [address] Care Team Providers Care Guidance Counselor Name Role Phone Cherrie Gómez MD Primary Care Provide r Reason for Visit * Reason Comments Med Refill Encounter Details Date Type Department Care Team ([facility] Contact Info) Description 07/08/2023 Refill [facility] MEDICINE [address] [place] [address] Cherrie Gómez MD [address] [place] [address] Social History Tobacco Use Types Packs/Day Years [...] enough money to get more: Never True 10/ Transportation Answer Date Recorded In the past [...] Description 10/08/2024 1:45 PM EDT Office Visit [facility] MEDICINE [address] [place] [address] Cherrie Gómez MD [address] [place] [address] 10/26/2024 1:45 PM EDT Office Visit [facility] OPTOMETRY [address] [place] [address] TarkaGena, OD [address] [place] [address] documented as of this encounter Visit Diagnoses Not on filedocumented in this encounter Additional Health Concerns Assessment Noted Time PHQ-9 Depression Total Score: 20 023 2:53 PM EST documented as of this encounter Care Teams Guidance Counselor Relationship Specialty Start Date End Date Cherrie Gómez MD [address] [place] [address] PCP - General Family Medicine 11/05/19 [facility] 08/06/19 documented as of this encounter
--- OUTSIDE RECORDS SUMMARY | 2024-09-30 09:19 | XMS_ITS | Encounter Summary ---
Author Organization [employer] Address 75 [facility] 7t [place] [address] Care Team Providers Care International Trade Manager Name Role Phone Cherrie Gómez MD Primary Care Provide r Reason for Visit * Reason Comments Med Refill Encounter Details Date Type Department Care Team ([facility] Contact Info) Description 10/19/2022 Refill [facility] MOBILE VACCINE CLINIC [address] [place] [address] Sharon Zavaleta MD [address] [place] [address] Anemia, unspecified type Social History Tobacco Use [...] Description 10/08/2024 1:45 PM EDT Office Visit [facility] MEDICINE [address] [place] [address] Cherrie Gómez MD [address] [place] [address] 10/26/2024 1:45 PM EDT Office Visit [facility] OPTOMETRY [address] [place], [place] [phone] Gena Gallagher, OD [address] [place] [address] documented as of this encounter Visit Diagnoses Diagnosis Anemia, unspecified type documented in this encounter Additional Health Concerns Assessment Noted Time PHQ-9 Depression Total Score: 16 023 11:35 AM EDT documented as of this encounter Care Teams International Trade Manager Relationship Specialty Start Date End Date Cherrie Gómez MD [address] [place] [address] PCP - General Family Medicine 11/05/19 [facility] 08/06/19 documented as of this encounter
[2024-09-30 09:21] LABS: Glucose, Whole Blood 161 mg/dL (60-115)
== END 2024-09-30 09:56 | disposition home or self-care (01) ==
LOC: HO.ENCR 08:55
PROVIDERS: PCP Internal Medicine; Visit Provider Nurse Practitioner Adult Health
DX: E11.9 Type 2 diabetes mellitus without complications (principal); Z79.4 Long term (current) use of insulin
CPT/HCPCS: 99214; G2211

== ENCOUNTER → 2024-09-30 08:54 | Outpatient (BNVA) | payer OTHER, SELFPAY | PROVIDERS: PCP Internal Medicine; Visit Provider Nurse Practitioner Adult Health | DX: E11.319 Type 2 diabetes mellitus with unspecified diabetic retinopathy without macular edema (principal); E11.42 Type 2 diabetes mellitus with diabetic polyneuropathy; Z79.4 Long term (current) use of insulin | CPT/HCPCS: 82947; 83036; 99212 ==

== ENCOUNTER → 2024-10-22 23:59 | Outpatient (BNV) | payer OTHER, SELFPAY ==
--- NOTE | 2024-10-26 08:38 | MHC.OFFVIS ---
Intake Visit Reasons: Remote device check- [facility] Allergies empagliflozin Adverse Reaction (Intermediate, Verified 10/23/24 18:23) uti PFSH Medical History (Updated 10/24/24 @ 00:01 by Sue Koehler) Diabetes mellitus type 2, insulin dependent Diastolic dysfunction Hypertension CKD stage 3 secondary to diabetes Gastroparesis due to secondary diabetes Bradycardia Burning with urination Encounter for monitoring anti-arrhythmic therapy Essential hypertension Abdominal bloating Small intestinal bacterial overgrowth Nausea and vomiting Dysphagia Periumbilical abdominal pain Globus sensation Orthostatic hypotension Presence of Watchman left atrial appendage closure device Subdural hematoma Syncope and collapse PAF (paroxysmal atrial fibrillation) Vitamin D deficiency Anxiety Depression Overweight (BMI 25.0-29.9) Dyslipidemia Non-toxic multinodular goiter Diabetic polyneuropathy associated with type 2 diabetes mellitus Diabetic retinopathy associated with type 2 diabetes mellitus Diabetes type 2, controlled Surgical History Hx of breast reduction, elective History of cholecystectomy H/O esophagogastroduodenoscopy Hx of colonoscopy History of gastric bypass History of gastric bypass Hx of hand surgery Family History Father CVD (cardiovascular disease) Mother Diabetes Social History Household Members: Spouse Alcohol intake: never Patient Tobacco Use Status: Former Tobacco user Tobacco use type: Cigarette Advance Directives: No Advance Directives Information Provided: No Do you have a plan to hurt others: No Plan Office Procedures Cardiac Device Check Cardiac Device Check Details: Date of service- 10/22/2024 ; Battery life >8 years; normal lead parameters; AP 82%; APPOINTMENT SCHEDULER 61%; no significant arrhythmias. Overall normal device function. [id number] Cardiac Device Interrogation, pacemaker Procedure code (CPT) selection complete Assessment & Plan Assessment & Plan (1) Pacemaker: Code(s): Z95.0 - Presence of cardiac pacemaker Category: Medical (2) PAF (paroxysmal atrial fibrillation): Code(s): I48.0 - Paroxysmal atrial fibrillation Category: Medical (3) Bradycardia: Code(s): R00.1 - Bradycardia, unspecified Category: Medical Plan x Coding Level of Care Code Procedure Only Diagnoses Pacemaker Z95.0 PAF (paroxysmal atrial fibrillation) I48.0 Bradycardia R00.1 CPT Codes Cardiac Device Check - Cardiac Device 12: [id number] Cardiac Device Interrogation, pacemaker ([id number])
== END ==
PROVIDERS: PCP Internal Medicine; Visit Provider Internal Medicine
DX: I48.0 Paroxysmal atrial fibrillation (principal); Z95.0 Presence of cardiac pacemaker; R00.1 Bradycardia, unspecified
CPT/HCPCS: 93294

== ENCOUNTER 2024-10-23 17:48 | Emergency (ER) | payer OTHER, SELFPAY ==
--- NOTE | ~2024-10-23 | XR_ITS ---
CLINICAL HISTORY: pain 1 view chest x-ray. Comparison: None Findings: The lungs are adequately expanded. No focal consolidation. No effusion or pneumothorax. Cardiac and mediastinal contours are within normal limits. No acute osseous abnormality Impression: No acute process. This document has been electronically signed by: Jacky Tracy MD on 10/23/2024 20:20:59
--- NOTE | ~2024-10-23 | CT_ITS ---
CLINICAL HISTORY: fall w head strike CT cervical spine without contrast Comparison: None Findings: Normal vertebral body alignment. Mild multilevel degenerative changes Facet joints are normally imbricating. No acute fractures or dislocations. No acute findings on limited view of the intracranial contents. No cervical fluid collections or masses. Lung apices are clear. IMPRESSION: No acute findings. Mild multilevel degenerative changes. This document has been electronically signed by: Jacky Tracy MD on 10/23/2024 20:00:44
--- NOTE | ~2024-10-23 | CT_ITS ---
CLINICAL HISTORY: fall w head strike CT head without contrast Comparison: None Findings: No intra-axial mass, midline shift, hydrocephalus, or acute hemorrhage. No significant atrophy-like change or white matter disease. Comminuted nasal bone fracture. Mild mucoperiosteal thickening of the paranasal sinuses. IMPRESSION: 1. No acute intracranial findings. This document has been electronically signed by: Jacky Tracy MD on 10/23/2024 20:07:08
--- NOTE | ~2024-10-23 | CT_ITS ---
CLINICAL HISTORY: fall w facial strike ?nasal fracture CT maxillofacial without contrast Comparison: None Findings: Comminuted nasal bone fracture, otherwise no additional facial bone fractures. Temporomandibular joints are intact. Small retention cysts within the right maxillary sinus. Mucoperiosteal thickening of the ethmoid air cells and partial opacification of the underpneumatized frontal sinus. Visualized intracranial contents are within normal limits. No foreign bodies. IMPRESSION: Comminuted nasal bone fracture. No additional fracture. This document has been electronically signed by: Jacky Tracy MD on 10/23/2024 20:06:26
[2024-10-23 18:17] VITALS: BP 135/55; PULSE 60; RESP 16; TEMP 36.2; O2SAT 99; BMI 29.5
--- NOTE | 2024-10-23 18:20 | ECG_ITS ---
Test Reason : DIZZINESS Blood Pressure : */* mmHG Vent. Rate : 60 BPM Atrial Rate : 60 BPM P-R Int : 196 ms QRS Dur : 174 ms QT Int : 492 ms P-R-T Axes : 52 -70 81 degrees QTcB Int : 492 ms AV dual-paced rhythm Abnormal ECG When compared with ECG of 01-Jan-2024 15:42, Electronic ventricular pacemaker has replaced Electronic atrial pacemaker Referred By: Beverley Magdaleno Electronically Signed By: ES LEE
--- NOTE | 2024-10-23 18:22 | ED.GENADULT ---
HPI - General Adult General Chief complaint: Fall Stated complaint: unwitness fall bruising on face / body ache Time Seen by Provider: 10/23/24 19:28 Source: patient Limitations: no limitations History of Present Illness ED Provider: Shannan Ribera PA-C HPI narrative: 69-year-old female with a history of cognitive decline, gait instability who should be using a walker at home to ambulate,diabetes, hyperlipidemia, hypertension, chronic kidney disease, depression, paroxysmal AFib not anticoagulated, presents after unwitnessed fall. The patient states she tripped, falling forward striking her face on the ground. She denies loss of consciousness. She denies headache, dizziness, nausea vomiting. She denies neck pain. Her daughters are at bedside, they state she refuses to use her walker. Apparently the patient has services to the home; VNA comes in in the morning and later in the afternoon, 1 of the nurses called the daughters after they discovered she had fallen this morning. Related Data Home Medications ?Medication ?Instructions ?Recorded ?Confirmed calcium 600 mg (as 1 tab PO BID 03/09/20 07/24/24 carbonate)-vitamin D3 10 mcg (400 unit) tablet ferrous sulfate 325 mg (65 mg 325 mg PO BID 03/09/20 07/24/24 iron) tablet oxybutynin chloride 5 mg tablet 5 mg PO BID 03/09/20 07/24/24 trazodone 100 mg tablet 100 mg PO BEDTIME PRN Sleep 03/09/20 07/24/24 aspirin 81 mg tablet,delayed 81 mg PO DAILY 11/21/22 07/24/24 release (Adult Aspirin Regimen) escitalopram oxalate 20 mg tablet 20 mg PO DAILY 05/30/23 07/24/24 meclizine 25 mg tablet 25 mg PO DAILY PRN Dizziness 06/27/23 07/24/24 multivitamin 1 tab PO DAILY 07/26/23 07/24/24 lancets 28 gauge (FreeStyle #100 ea 10/18/23 07/24/24 Lancets) gabapentin 300 mg capsule 300 mg PO BEDTIME 07/08/24 07/24/24 loperamide 2 mg capsule 2 mg PO Q6H PRN 07/08/24 07/24/24 Previous Rx's ?Medication ?Instructions ?Recorded blood-glucose meter (FreeStyle #1 ea 09/29/20 Lite Meter kit) Bacillus coagulans 800 million See Rx Instructions PO .COMPLEX 30 06/09/21 cell tablet (Digestive Advantage days #30 tabs Probiotics-Prebiotic) atorvastatin 80 mg tablet 80 mg PO BEDTIME #30 tabs 10/03/21 blood sugar diagnostic (FreeStyle #200 ea 10/04/21 Lite Strips) cholecalciferol (vitamin D3) 50 50 mcg PO DAILY #90 caps 01/08/22 mcg (2,000 unit) capsule diabetic shoes #1 ea 04/05/22 sennosides 8.6 mg tablet (senna) 17.2 mg (2 x 8.6 mg) PO BEDTIME 08/09/22 PRN for constipation #60 tabs diabetic shoes #1 ea 12/21/22 linaclotide 145 mcg capsule 145 mcg PO QAM #30 caps 10/25/23 (Linzess) aluminum-mag hydroxide-simethicone 10 ml PO QID PRN chest pain #3,000 12/06/23 400 mg-400 mg-40 mg/5 mL oral susp mL (Mylanta Maximum Strength) famotidine 40 mg tablet (Pepcid) 40 mg PO BEDTIME 30 days #30 tabs 12/06/23 metformin 1,000 mg tablet 1,000 mg PO BID 90 days #180 tabs 02/25/24 amlodipine 5 mg tablet 5 mg PO DAILY #90 tabs 04/14/24 dicyclomine 20 mg tablet 20 mg PO QID #360 tabs 04/14/24 furosemide 20 mg tablet 20 mg PO DAILY weight gain #90 tabs 04/21/24 rabeprazole 20 mg tablet,delayed 20 mg PO BID #180 tabs 05/28/24 release simethicone 125 mg chewable tablet 125 mg PO BID-QID PRN abdominal 08/18/24 (Gas Relief (simethicone)) distention #120 tabs flecainide 50 mg tablet 50 mg PO Q12H #180 tabs 08/28/24 glucose 4 gram chewable tablet 16 g (4 x 4 gram) PO Q15M PRN 09/11/24 (Dex4 Glucose) hypoglycemia 30 days #30 tabs metoprolol succinate 25 mg 25 mg PO DAILY #90 tabs 09/28/24 tablet,extended release 24 hr blood-glucose sensor (FreeStyle #2 ea 09/30/24 Zunilda 3 Plus Sensor device) blood-glucose,licensing analyst,cont #1 ea 09/30/24 (FreeStyle Zunilda 3 [place]) glucose 4 gram chewable tablet 16 g (4 x 4 gram) PO Q15M PRN 09/30/24 (Dex4 Glucose) hypoglycemia 30 days #30 tabs insulin syringe-needle U-100 1 mL #100 ea 09/30/24 31 gauge x 5/16 insulin lispro protamine-lispro See Rx Instructions subcut QAM 30 10/09/24 100 unit/mL (75-25) subcutaneous days #15 mL susp (Humalog Mix 75-25(U-100)Insuln) metoclopramide HCl 5 mg tablet 5 mg PO QID #120 tabs 10/13/24 pioglitazone 15 mg tablet 15 mg PO DAILY 30 days #30 tabs 10/20/24 cephalexin 500 mg capsule 500 mg PO Q12H #13 caps 10/23/24 Allergies Allergy/AdvReac Type Severity Reaction Status Date / Time empagliflozin AdvReac Intermediate uti Verified 10/23/24 18:23 Review of Systems Review of Systems: Yes all other systems are reviewed and are negative Constitutional: Constitutional: Denies fatigue, Denies fever(s) and Denies headache(s) ENT: Denies dizziness and Denies headache(s) Cardiovascular: Cardiovascular: Denies chest pain and Denies dyspnea Respiratory: Respiratory: Denies cough and Denies dyspnea Gastrointestinal: Gastrointestinal: Denies abdominal pain, Denies nausea and Denies vomiting Neurologic: Denies dizziness and Denies headache(s) Endocrine: Endocrine: Denies fatigue ON LICENSE OF [facility] Past Medical History Attestation statement: The following information was validated with the patient. Medical History (Updated 10/24/24 @ 00:01 by Background Daemon) Diabetes mellitus type 2, insulin dependent Diastolic dysfunction Hypertension CKD stage 3 secondary to diabetes Gastroparesis due to secondary diabetes Bradycardia Burning with urination Encounter for monitoring anti-arrhythmic therapy Essential hypertension Abdominal bloating Small intestinal bacterial overgrowth Nausea and vomiting Dysphagia Periumbilical abdominal pain Globus sensation Orthostatic hypotension Presence of Watchman left atrial appendage closure device Subdural hematoma Syncope and collapse PAF (paroxysmal atrial fibrillation) Vitamin D deficiency Anxiety Depression Overweight (BMI 25.0-29.9) Dyslipidemia Non-toxic multinodular goiter Diabetic polyneuropathy associated with type 2 diabetes mellitus Diabetic retinopathy associated with type 2 diabetes mellitus Diabetes type 2, controlled Surgical History Hx of breast reduction, elective History of cholecystectomy H/O esophagogastroduodenoscopy Hx of colonoscopy History of gastric bypass History of gastric bypass Hx of hand surgery Family History Family History Father CVD (cardiovascular disease) Mother Diabetes Social History Social History Household Members: Spouse Alcohol intake: never Patient Tobacco Use Status: Former Tobacco user Tobacco use type: Cigarette Advance Directives: No Advance Directives Information Provided: No Do you have a plan to hurt others: No Plan Physical Exam ED Vital Signs: Vital Signs - 24 hr 10/23/24 18:17 10/23/24 21:33 Temperature 97.2 F 98.0 F Pulse Rate 60 60 Respiratory Rate 16 16 Blood Pressure 135/55 L 125/48 L Pulse Oximetry 99 97 Oxygen Delivery Method Room Air Room Air BMI result Body Mass Index 29.5 Const Other: Alert, Orientation/consciousness: patient oriented x3 HENMT Other: swelling and ecchymosis noted over the nose no bleeding from either naris Eyes Other: bilateral periorbital ecchymosis Neck Neck: Yes full ROM Resp Effort & Inspection: normal respiratory effort Cardio Other: normal peripheral perfusion Skin Other: warm dry no rash Neuro General: patient oriented x3, gait normal, no focal motor deficits and CN's II-XI intact bilaterally Psych Other: cooperative Course Course Course Narrative: 10/23/24 1822 JOHNNY San This is a Rapid Medical Examination (RME) performed by Pauline Magdaleno PA-C in triage. Full HPI, ROS, assessment and treatment plan per primary provider in the Main ED. Hx: 69 yo F hx T2DM, PAF, HTN, CKD here w/ daughter for eval s/p fall at 1000 this morning. reports feeling dizzy, causing her to fall forward and strike her face on the ground. denies LOC. no AC. Complains of nasal pain and all-over body pain. PE/vitals: Noted periorbital bruising. No obvious septal hematoma. No active nasal bleeding Plan: labs, ekg, ct Medications Administered Discontinued Medications Generic Name Dose Route Start Last Admin Trade Name Navya PRN Reason Stop Dose Admin Acetaminophen 975 mg 10/23/24 19:56 10/23/24 20:19 Acetaminophen 325 Mg Tablet PO 10/23/24 19:57 975 mg ONCE ONE Administration Cephalexin HCl 500 mg 10/23/24 21:50 10/23/24 22:15 Cephalexin 500 Mg Capsule PO 10/23/24 21:51 500 mg ONCE ONE Administration Medical Decision Making Medical Decision Making [facility] Narrative: 69-year-old female with a history of cognitive decline, gait instability who should be using a walker at home to ambulate,diabetes, hyperlipidemia, hypertension, chronic kidney disease, depression, paroxysmal AFib not anticoagulated, presents after unwitnessed fall. The patient states she tripped, falling forward striking her face on the ground. She denies loss of consciousness. She denies headache, dizziness, nausea vomiting. She denies neck pain. Her daughters are at bedside, they state she refuses to use her walker. Apparently the patient has services to the home; VNA comes in in the morning and later in the afternoon, 1 of the nurses called the daughters after they discovered she had fallen this morning. problem: Cognitive decline, gait instability, diabetes History: Per patient and family I have considered the following differential diagnoses: Intracranial hemorrhage, cervical spine injury, facial bone fracture, syncope, anemia, dehydration Plan: Patient has sustained a mechanical fall, she is nonadherent with the use of her walker. CT scan of the head, cervical spine, max face as well as screening labs were obtained from triage. She has a nasal bone fracture. UA needs to be collected, adding on a chest x-ray, she complains of upper anterior chest discomfort since the fall. Thought about syncope, I ordered an EKG, however the patient is alert and oriented, she denies syncopal symptoms. I have independently reviewed the following tests: Labs: No leukocytosis, not anemic, no electrolyte abnormality, urine is infected EKG: AV dual paced rhythm, rate of 60, no ischemic changes, QTC 492 CT brain:IMPRESSION: 1. No acute intracranial findings. CT cervical spine:Findings: Normal vertebral body alignment. Mild multilevel degenerative changes Facet joints are normally imbricating. No acute fractures or dislocations. No acute findings on limited view of the intracranial contents. No cervical fluid collections or masses. Lung apices are clear. IMPRESSION: No acute findings. Mild multilevel degenerative changes. CT max face: MPRESSION: Comminuted nasal bone fracture. No additional fracture. Chest x-ray:Impression: No acute process. Lab Data 10/23/24 18:37 10/23/24 18:37 Labs: Lab Results 10/23/24 10/23/24 Range/Units 18:37 19:48 WBC 5.3 (4.8-10.8) X10*3/uL RBC 3.74 L (4.20-5.50) X10*6/uL Hgb 12.3 (12.0-16.0) g/dl Hct 35.3 L (37.0-47.0) % MCV 94.4 (80.0-98.0) fL MCH 32.9 (27.0-33.0) pg MCHC 34.8 (31.0-35.0) g/dl RDW 11.8 (11.0-16.0) % Plt Count 151 L (160-400) X10*3/uL MPV 9.8 (9.4-12.3) fL Immature Gran % (Auto) 0.2 (0.0-0.4) % Neut % (Auto) 68.3 (45-73) % Lymph % (Auto) 22.1 (20-40) % Winn % (Auto) 7.7 (2-11) % Eos % (Auto) 1.5 (0-4) % Baso % (Auto) 0.2 (0-2) % Lymph # (Auto) 1.2 (1.2-4.9) X10*3/uL Winn # (Auto) 0.4 (0.1-1.2) X10*3/uL Eos # (Auto) 0.1 (0.0-0.4) X10*3/uL Baso # (Auto) 0.0 (0.0-0.2) X10*3/uL Abs Immat Gran (auto) 0.01 (0.00-0.03) X10*3/uL Absolute Neuts (auto) 3.6 (2.0-8.3) x10*3/uL Absolute Nucleated RBC 0.000 (0.0-0.012) X10*3/uL Nucleated RBC % (auto) 0.0 (0.0-0.2) /100WBC Sodium 133 L (135-145) mmol/L Potassium 4.7 (3.3-5.1) mmol/L Chloride 104 (96-108) mmol/L Carbon Dioxide 23 (22-29) mmol/L Anion Gap 11 L (12-20) BUN 32 H (9-16) mg/dL Creatinine 1.25 (0.5-1.4) mg/dL Estim Creat Clear Calc 44.0 Estimated GFR 43 Random Glucose 281 H (60-115) mg/dL Calcium 9.3 D (8.4-10.2) mg/dL Magnesium 1.9 (1.6-2.6) mg/dL Total Bilirubin 0.3 (0.0-1.0) mg/dL AST 46 H (5-31) U/L ALT 70 H (0-31) U/L Alkaline Phosphatase 86 (39-117) U/L Total Creatine Kinase 196 H (26-140) U/L Troponin I High Sens 11.6 (<3.5-17.0) ng/L Total Protein 7.3 (6.5-8.0) g/dL Albumin 4.1 (3.5-5.0) g/dL TSH 0.36 (0.32-4.0) uIU/mL Urine Color Yellow Urine Appearance Clear Urine pH 5.5 (5.0-9.0) Ur Specific [place] 1.010 (1.005-1.025) Urine Protein Negative (Neg-Trace) mg/dL Urine Glucose (UA) 100 H (Negative) mg/dL Urine Ketones Negative (Negative) mg/dL Urine Blood Negative (Negative) Urine Nitrite Positive H (Negative) Ur Leukocyte Esterase Small (1+) H (Negative) Urine RBC 0-2 (0-2) /HPF Urine WBC 6-10 H (0-5) /HPF Ur Squamous Epith Cells 0-2 (0-2) /HPF Urine Bacteria 4+ (None Seen) Hyaline Casts 0-2 (0-2) /LPF Discharge Plan Discharge Clinical Impression: Urinary tract infection, Fall at home, Closed fracture nasal bone Patient Disposition: Home, Self-Care Instructions: Nasal Fracture (ED), Fall Prevention for Older Adults (ED), Fall Prevention (ED), Urinary Tract Infection in Older Adults (ED) Additional Instructions: the CT scan of the brain and cervical spine were negative for acute injury. You sustained a nasal bone fracture. See home care instructions. I will provide you with a contact of a maxillofacial surgeon to follow up with. All of your labs were normal with the exception that you were found to have a urinary tract infection. See home care instructions. Take the cephalexin as directed. You did not sustain a rib fracture on the chest x-ray, it was normal. Call your doctor to make a follow up appointment. You need to use your walker at home to ambulate, this will minimize falling. Dr. Nasir Young maxillofacial surgeon [address] [place] [address] Prescriptions: New cephalexin 500 mg capsule 500 mg PO Q12H Qty: 13 0RF No Action (DME) blood-glucose meter [FreeStyle Lite Meter] Kit See Rx Instructions miscellaneous .MEDSUPPLY Qty: 1 0RF Rx Instructions: Twice a day Digestive Advantage Probio-Pre 800 million cell tablet See Rx Instructions PO .COMPLEX 30 Days Qty: 30 3RF Rx Instructions: 1 tab po qd PO; atorvastatin 80 mg tablet 80 mg PO BEDTIME Qty: 30 11RF (DME) FreeStyle Lite Strips Strip See Rx Instructions .MEDSUPPLY Qty: 200 10RF Rx Instructions: 2times a day cholecalciferol (vitamin D3) 50 mcg (2,000 unit) capsule 50 mcg PO DAILY Qty: 90 4RF (DME) diabetic shoes See Rx Instructions .ROUTE .MEDSUPPLY Qty: 1 0RF Rx Instructions: extra depth orthopedic shoes ( 1 pair ) with customize heat molded multi density inner soles ( 3 pair) Dispense 1 Sig: As directed DX: And IDDM /polyneuropathy ( E11 0.42 ); hammertoe foot deformity ( M 20.41, and 20.42 ) pre ulcerative skin lesion ( L 85.1 ) Diagnosis ( E11 0.42 ) type 2 diabetes with polyneuropathy sennosides [senna] 8.6 mg tablet 17.2 mg PO BEDTIME PRN (Reason: for constipation) Qty: 60 0RF aspirin [Adult Aspirin Regimen] 81 mg tablet,delayed release (DR/EC) 81 mg PO DAILY Linzess 145 mcg capsule 145 mcg PO QAM Qty: 30 6RF metformin 1,000 mg tablet 1,000 mg PO BID 90 Days Qty: 180 1RF dicyclomine 20 mg tablet 20 mg PO QID Qty: 360 1RF amlodipine 5 mg tablet 5 mg PO DAILY Qty: 90 3RF furosemide 20 mg tablet 20 mg PO DAILY Qty: 90 3RF Rx Instructions: take as needed for weight gain of 3 lbs over night until at baseline weight. rabeprazole 20 mg tablet,delayed release (DR/EC) 20 mg PO BID Qty: 180 2RF simethicone [Gas Relief (simethicone)] 125 mg tablet,chewable 125 mg PO BID-QID PRN (Reason: abdominal distention) Qty: 120 6RF flecainide 50 mg tablet 50 mg PO Q12H Qty: 180 3RF glucose [Dex4 Glucose] 4 gram tablet,chewable 16 g PO Q15M MDD 16 tablets PRN (Reason: hypoglycemia) 30 Days Qty: 30 3RF Rx Instructions: every 15 minutes until symptoms of low blood sugar are controlled metoprolol succinate 25 mg tablet extended release 24 hr 25 mg PO DAILY Qty: 90 3RF Humalog Mix 75-25(U-100)Insuln 100 unit/mL (75-25) suspension See Rx Instructions subcut QAM 30 Days Qty: 15 11RF Rx Instructions: 30 units before breakfast 6 units before supper subcutaneously every morning; metoclopramide HCl 5 mg tablet 5 mg PO QID Qty: 120 2RF pioglitazone 15 mg tablet 15 mg PO DAILY 30 Days Qty: 30 3RF ferrous sulfate 325 mg (65 mg iron) tablet 325 mg PO BID calcium carbonate-vitamin D3 600 mg(1,500mg) -400 unit tablet 1 tab PO BID trazodone 100 mg tablet 100 mg PO BEDTIME PRN (Reason: Sleep) oxybutynin chloride 5 mg tablet 5 mg PO BID (DME) diabetic shoes See Rx Instructions .ROUTE .MEDSUPPLY Qty: 1 0RF Rx Instructions: extra depth orthopedic shoes ( 1 pair ) with customize heat molded multi density inner soles ( 3 pair) Dispense 1 Sig: As directed DX: And IDDM /polyneuropathy ( E11 0.42 ); hammertoe foot deformity ( M 20.41, and 20.42 ) pre ulcerative skin lesion ( L 85.1 ) Diagnosis ( E11 0.42 ) type 2 diabetes with polyneuropathy escitalopram oxalate 20 mg tablet 20 mg PO DAILY meclizine 25 mg tablet 25 mg PO DAILY PRN (Reason: Dizziness) multivitamin Tablet 1 tab PO DAILY (DME) lancets [FreeStyle Lancets] 28 gauge misc See Rx Instructions .ROUTE .MEDSUPPLY Qty: 100 Rx Instructions: As directed famotidine [Pepcid] 40 mg tablet 40 mg PO BEDTIME 30 Days Qty: 30 6RF alum-mag hydroxide-simeth [Mylanta Maximum Strength] 400-400-40 mg/5 mL suspension 10 ml PO QID PRN (Reason: chest pain) Qty: 3000 3RF gabapentin 300 mg capsule 300 mg PO BEDTIME loperamide 2 mg capsule 2 mg PO Q6H PRN (DME) insulin syringe-needle U-100 1 mL 31 gauge x 5/16 syringe See Rx Instructions .ROUTE .MEDSUPPLY Qty: 100 8RF Rx Instructions: As directed twice daily (DME) FreeStyle Zunilda 3 Plus Sensor Device See Rx Instructions .ROUTE .MEDSUPPLY Qty: 2 11RF Rx Instructions: As directed for coninuous use change every 15 days (DME) FreeStyle Zunilda 3 [place] Misc See Rx Instructions .Route Qty: 1 0RF Rx Instructions: As directed glucose [Dex4 Glucose] 4 gram tablet,chewable 16 g PO Q15M MDD 16 tablets PRN (Reason: hypoglycemia) 30 Days Qty: 30 3RF Rx Instructions: every 15 minutes until symptoms of low blood sugar are controlled Interventions: ED Discharge Assessment Last Done: 10/23/24 23:10 Discharge Date/Time: 10/23/24 23:10 Print Language: [place]
[2024-10-23 18:41] LABS: MANUAL DIFF FLAG NO
[2024-10-23 18:42] LABS: Basophils Percent Auto 0.2 % (0-2); Eosinophils Absolute Auto 0.1 X10*3/uL (0.0-0.4); Eosinophils Percent Auto 1.5 % (0-4); Hematocrit 35.3 % (37.0-47.0); Hemoglobin 12.3 g/dl (12.0-16.0); Imm Gran Abs Auto 0.01 X10*3/uL (0.00-0.03); Imm Gran Pct Auto 0.2 % (0.0-0.4); Lymphocytes Absolute Auto 1.2 X10*3/uL (1.2-4.9); Lymphocytes Percent Auto 22.1 % (20-40); Mean Corpuscular HGB Conc 34.8 g/dl (31.0-35.0); Mean Corpuscular Hemoglobin 32.9 pg (27.0-33.0); Mean Corpuscular Volume 94.4 fL (80.0-98.0); Mean Platelet Volume 9.8 fL (9.4-12.3); Monocytes Absolute Auto 0.4 X10*3/uL (0.1-1.2); Monocytes Percent Auto 7.7 % (2-11); Neutrophils Absolute Auto 3.6 x10*3/uL (2.0-8.3); Neutrophils Percent Auto 68.3 % (45-73); Platelet Count 151 X10*3/uL (160-400); Red Blood Count 3.74 X10*6/uL (4.20-5.50); Red Cell Distribution Width 11.8 % (11.0-16.0); White Blood Count 5.3 X10*3/uL (4.8-10.8)
[2024-10-23 18:57] LABS: Alanine Aminotransferase 70 U/L (0-31); Albumin Level 4.1 g/dL (3.5-5.0); Alkaline Phosphatase 86 U/L (39-117); Anion Gap 11 (12-20); Aspartate Amino Transferase 46 U/L (5-31); Bilirubin Total 0.3 mg/dL (0.0-1.0); Blood Urea Nitrogen 32 mg/dL (9-16); Calcium 9.3 mg/dL (8.4-10.2); Carbon Dioxide 23 mmol/L (22-29); Chloride 104 mmol/L (96-108); Estimated Glomerular Filt Rate 43; Glucose Random 281 mg/dL (60-115); Magnesium 1.9 mg/dL (1.6-2.6); Potassium 4.7 mmol/L (3.3-5.1); Sodium 133 mmol/L (135-145); Total Protein 7.3 g/dL (6.5-8.0)
[2024-10-23 19:02] LABS: Troponin-I High Sensitivity 11.6 ng/L (<3.5-17.0)
[2024-10-23 19:16] LABS: TSH reflex Free T4 0.36 uIU/mL (0.32-4.0)
[2024-10-23 20:01] LABS: Appearance Urine Clear; Color Urine Yellow; Glucose Urine UA 100 mg/dL (Negative); Leukocyte Esterase Urine Small (1+) (Negative); Nitrite Urine Positive (Negative); PH 5.5 (5.0-9.0); UMIC TRIGGER UACC YES; Urine Blood Negative (Negative); Urine Ketones Negative (Negative); Urine Protein Negative (Neg-Trace)
[2024-10-23 20:04] LABS: Bacteria Urine 4+ (None Seen); Hyaline Casts Urine 0-2 /LPF (0-2); RBC Urine 0-2 /HPF (0-2); Squamous Epithelial Cell Urine 0-2 /HPF (0-2); UACC Culture Trigger YES
[2024-10-23] MEDS: Acetaminophen 325 MG TABLET 975 MG PO (20:19)
[2024-10-23 21:33] VITALS: BP 125/48; PULSE 60; RESP 16; TEMP 36.7; O2SAT 97
[2024-10-23] MEDS: cephALEXin 500 MG CAPSULE PO (22:15)
[2024-10-23 23:10] VITALS: BP 141/64; PULSE 60; RESP 16; TEMP 36.4; O2SAT 98
== END 2024-10-23 23:10 | disposition home or self-care (01) ==
PROVIDERS: Physician Assistant Medical; Emergency Provider Emergency Medicine; PCP Internal Medicine
DX: S02.2XXA Fracture of nasal bones, initial encounter for closed fracture (principal); N39.0 Urinary tract infection, site not specified; M54.2 Cervicalgia; R07.89 Other chest pain; E11.22 Type 2 diabetes mellitus with diabetic chronic kidney disease; I12.9 Hypertensive chronic kidney disease with stage 1 through stage 4 chronic kidney disease, or unspecified chronic kidney disease; M79.10 Myalgia, unspecified site; R41.81 Age-related cognitive decline; R51.9 Headache, unspecified; N18.30 Chronic kidney disease, stage 3 unspecified; X58.XXXA Exposure to other specified factors, initial encounter; W18.30XA Fall on same level, unspecified, initial encounter; Y93.01 Activity, walking, marching and hiking; Y92.009 Unspecified place in unspecified non-institutional (private) residence as the place of occurrence of the external cause; Y99.8 Other external cause status; Z79.4 Long term (current) use of insulin; Z79.899 Other long term (current) drug therapy; Z91.81 History of falling
CPT/HCPCS: 36415; 70450; 70486; 71045; 72125; 80053; 81001; 81003; 82550; 83735; 84443; 84484; 85025; 87086; 87088; 87186; 93005; 99284

== ENCOUNTER → 2024-10-23 18:20 | Outpatient (BNV) | payer OTHER, SELFPAY | PROVIDERS: Emergency Provider Emergency Medicine; PCP Internal Medicine; Visit Provider Internal Medicine | DX: R94.31 Abnormal electrocardiogram [ECG] [EKG] (principal); Z95.0 Presence of cardiac pacemaker | CPT/HCPCS: 93010 ==

== ENCOUNTER → 2024-10-23 18:20 | Outpatient (BNV) | payer OTHER, SELFPAY | PROVIDERS: Emergency Provider Emergency Medicine; PCP Internal Medicine; Visit Provider Radiology Vascular & Interventional Radiology | DX: S09.90XA Unspecified injury of head, initial encounter (principal); S02.2XXA Fracture of nasal bones, initial encounter for closed fracture; R07.9 Chest pain, unspecified; W19.XXXA Unspecified fall, initial encounter | CPT/HCPCS: 70450; 70486; 71045; 72125 ==

== ENCOUNTER 2024-11-06 16:29 | Outpatient (REF) | payer OTHER, SELFPAY | END 2024-11-06 16:30 | disposition home or self-care (01) | LOC: HO.HHCLNP 16:29 | PROVIDERS: Visit Provider Nurse Practitioner Primary Care | DX: N30.00 Acute cystitis without hematuria (principal) | CPT/HCPCS: 87086; 87088; 87186 ==

== ENCOUNTER 2024-12-21 14:53 | Outpatient (AMB) | payer OTHER, SELFPAY ==
--- OUTSIDE RECORDS SUMMARY | 2024-12-21 14:56 | XMS_ITS | Clinical Summary ---
Author Organization [facility] Address [address] [place] [address] [address] [place]OPEZ [place] [phone] Phone Care Team Providers Care Prover Name Role Phone Cherrie Gómez MD Primary [...] Diabetes: Hemoglobin A1C 01/25/2024 10/25/2023 Influenza Vaccine (#1) 2025 , 02/15/2022, 03/16/2021, Additional history exists Pneumococcal Vaccine: 50+ Years Completed 05/02/2023, 07/02/2018, 06/14/2017, Additional history exists Pneumococcal Vaccine: Peds ( 0 to 5 Years) and At-Risk Patients (6 to 49 Years) Discontinued 05/02/2023, 07/02/2018, 06/14/2017, Additional history exists Insurance [facility] ([id number]) JOHNNY [place] [id number] [place] [id number] [facility] ([id number]) JOHNNY SAMSON [id number] Care Teams Prover Relationship Specialty Start Date End Date Cherrie Gómez MD [address] [place] [address] [place] [id number] PCP - General 05/30/20
--- OUTSIDE RECORDS SUMMARY | 2024-12-21 14:56 | XMS_ITS | Clinical Summary ---
Author Organization [address] [place] [address] Address [address] [place] [address] Phone Care Team Providers Care Full Time Name Role Phone Cherrie Gómez MD Primary Care Provide r Surgical History Surgery Date Site/Laterality Comments GASTRIC BYPASS PROCEDURE: GASTRIC BYPASS FOR OBESIT ABDOMINAL SURGERY PROCEDURE: HISTORICAL ABDOMINAL SURGERY BREAST REDUCTION PROCEDURE: DC BREAST REDUCTION CHOLECYSTECTOMY PROCEDURE: DC CHOLECYSTECTOMY FOOT SURGERY PROCEDURE: HISTORICAL FOOT SURGERY; COMMENT: right foot,little toe Medical History Medical History Date Comments Diabetes mellitus ([facility] V 24, CMS/HCC V28) DX:Diabetes [...] 1976 Zoster Vaccines (1 of 2) 09/27/2007 Colorectal Cancer Screening: Colonoscopy 04/22/2022 Hepatitis C Screening 04/22/2022 Medicare Annual Wellness Visit 04/22/2022 Osteoporosis Screening (Bone Density Screening) 04/22/2022 Social Influencers of Health Screening 04/22/2022 Falls Risk Assessment 2022 COVID-19 Vaccine (1 - 2023-2 5 season) 2024 Depression Screening 05/20/2024 Influenza Vaccine (#1) 2025 RSV Immunization Adult Patie nts (1 - 1-dose 75+ series) 2032 HIB Vaccines Aged Out No longer eligi [...] patient's age to complete this topic Insurance [facility] MEDICARE Member Subscriber Plan / Payer (Ef fective 2024-Present) Name:Dana Winter Relation to Subscriber:Self Name:Dana Winter Payer ID:[id number] Group ID:[id number] Type:Not on file Address: [address] [place] [address] MEDICAID - [place] Care Teams Full Time Relationship Specialty Start Date End Date Cherrie Gómez MD [address] [place] [id number] PCP - General Internal Medicine 08/04/24
--- OUTSIDE RECORDS SUMMARY | 2024-12-21 14:56 | XMS_ITS | Encounter Summary ---
Author Organization [employer] Address [address] [facility] [address] [place] [address] Care Team Providers Care Customer Orders Clerk Name Role Phone Cherrie Gómez MD Primary Care Provide r Reason for Visit * Reason Onset Date Comments Hospital Follow-up 05/06/2024 Encounter Details Date Type Department Care Team ([facility] Contact Info) Description 05/06/2024 Telephone [facility] [address] [place] [address] Cherrie Gómez MD [address] [place] [address] Hospital Follow-up Social History Tobacco Use Types [...] daughter, MAYURI, reports Pt was seen in [facility] ED 05/06/24 for UTI. Pt didn't have [...] prior to booking. Will request information from [facility] visit 05/06/24 be obtained for chart. Protocol [...] 05/06/2024 2:05 PM EST Triage call with [facility] knitting machine operator , [place] [address]. Call to [phone] no answer, voice mail message left to call [facility] [phone]. Call to [phone], no answer. Left voice message to call [facility] [phone] * Telephone Encounter - Sincere Chang - 05/06/2024 12:09 PM EST Tc from pt requesting a HDF appt. Hospital: [facility] Date of admission: 05/06/2024 Discharge date: 05/06/2024 Diagnosed: UTI *Send message to [facility] Clinical Care Coordinators documented in this encounter Plan of Treatment Upcoming Encounters Date Type Department Care Team (Late st Contact Info) Description 12/23/2024 11:30 AM EDT Clinical Support [facility] [address] [place] [id number] 12/29/2024 1:45 PM EDT Office Visit [facility] [address] [place] [address] Gena Gallagher, OD [address] [place] [address] 01/28/2025 3:30 PM EDT Office Visit [facility] [address] [place] [phone] Cherrie Gómez MD [address] [place] [address] documented as of this encounter Visit Diagnoses Not on filedocumented in this encounter Additional Health Concerns Assessment Noted Time PHQ-9 Depression Total Score: 20 023 2:53 PM EST documented as of this encounter Care Teams Customer Orders Clerk Relationship Specialty Start Date End Date Cherrie Gómez MD [address] [place] [address] PCP - General Family Medicine 11/05/19 [facility] 08/06/19 documented as of this encounter
--- OUTSIDE RECORDS SUMMARY | 2024-12-21 14:56 | XMS_ITS | Clinical Summary ---
Author Organization [facility] Address [address] [facility] [address] [place] [phone] Phone Care Team Providers Care Heat Engineering Teacher Name Role Phone Cherrie Gómez MD Primary Care Provider Allergies No known active allergies Medications amLODIPine (NORVASC) 5 MG tablet Take 5 mg by mouth daily. Active aspirin 81 mg chewable tablet Take 81 mg by mouth daily. Active atorvastatin (LIPITOR) 80 MG tablet Take 80 mg by mouth daily. Active calcium carbonate-vitamin D3 1,250 mg (500 mg elemental)-400 units per tablet Take 1 tablet by mouth daily. Active cholecalciferol (VITAMIN D3) 2,000 unit tablet Take 1,000 Units by mouth daily. Active dexAMETHasone 0.1 % ophthalmic solution Place 1 drop into each eye every 3 (three) hours. Active erythromycin (ROMYCIN) ophthalmic ointment Place into each eye nightly at bedtime. Active escitalopram oxalate (LEXAPRO) 20 MG tablet Take 20 mg by mouth daily. Active ferrous sulfate 325 mg (65 mg ruby iron) tablet Take 325 mg by mouth daily with breakfast. Active flecainide (TAMBOCOR) 50 MG tablet Take 50 mg by mouth 2 (two) times a day. Active gabapentin (NEURONTIN) 300 MG capsule Take 300 mg by mouth 3 (three) times a day. Active simethicone 125 mg Cap Take 125 mg by mouth 4 (four) times a day as needed. Active insulin glargine (LANTUS) 100 unit/mL injection vial Inject 18 Units under the skin nightly at bedtime. Active linaCLOtide (LINZESS) 145 mcg Cap Take 145 mcg by mouth daily before breakfast. Active metFORMIN (FORTAMET) 1000 MG (OSM) 24 hr tablet Take 1,000 mg by mouth 2 (two) times a day with meals. Active metoclopramide HCl 5 mg ODT Take by mouth. Active metoprolol succinate (TOPROL-XL) 25 MG 24 hr tablet Take 25 mg by mouth daily. Active therapeutic multivitamin (THERAVITE) liquid Take 5 mL by mouth daily. Active oxyBUTYnin (DITROPAN) 5 MG tablet Take 5 mg by mouth 3 (three) times a day. Active acetaminophen (TYLENOL) 650 MG CR tablet Take 650 mg by mouth every 8 (eight) hours as needed for pain (specific location in comments). Active calcium carbonate 500 mg (200 mg elemental) chewable tablet Take 1 tablet by mouth as needed for heartburn. Active furosemide (LASIX) 20 MG tablet Take 20 mg by mouth as needed. Active loperamide (IMODIUM A-D) 2 mg tablet Take 2 mg by mouth as needed for diarrhea. Active meclizine (ANTIVERT) 25 mg tablet Take 25 mg by mouth as needed. Active ondansetron (ZOFRAN) 4 MG tablet Take 4 mg by mouth as needed for nausea. Active traZODone (DESYREL) 100 MG tablet Take 100 mg by mouth as needed for sleep. Active Active Problems Problem Noted Date Diagnosed Date Paroxysmal atrial fibrillation 12/23/2023 Assessment & Plan (12/23/2023 1:50 PM EDT): We had a detailed discussion with the patient with regards to ablation versus medication management. Patient at this point opted for medication management. In view of bleeding risk and having Watchman due to bleeding issues patient does not want to take blood thinners for ablation. Sick sinus syndrome 12/23/2023 Assessment & Plan (12/23/2023 1:50 PM EDT): We had a detailed discussion with the patient with regards to pacemaker. In view of symptoms and symptomatic bradycardia patient wants to go ahead with pacemaker placement. Risk and benefits of the procedure were discussed in detail. Social History Tobacco Use Types Packs/Day Years Used Date Smoking Tobacco: Never Assessed Education Answer Date Recorded Are you interested in more education? Not on kelsey e 09/09/2023 Are you concerned about learning? Not on file 09/09/2023 No 09/09/2023 No 09/09/2023 Digital Access Answer Date Recorded No 09/09/2023 No 09/09/2023 Reliable internet access at home? Not on file 09/09/2023 Device with a working camera? Not on file Comments Unknown Sex and Gender Information Value Date Recorded Sex Assigned at Not on file Legal Sex Female 3:47 PM EDT Gender Identity Not on file Sexual Orientation Not on file Last Filed Vital Signs Vital Sign Reading Time Taken Comments Blood Pressure 132/70 12/23/2023 11:10 AM EDT Pulse - - Temperature - - Respiratory Rate - - Oxygen Saturation - - Inhaled Oxygen Concentration - - Weight 67.6 kg (149 lb) 12/23/2023 11:10 AM EDT Height 160 cm (5' 3 ) 12/23/2023 11:10 AM EDT Body Mass Index 26.39 12/23/2023 11:10 AM EDT Plan of Treatment Health Maintenance Due Date Last Done Comments CREATININE LEVEL 1957 DEPRESSION SCREENING 1969 SMOKING Hx and SMOKELESS TOBACCO SCREENING 1970 HEPATITIS C SCREENING 09/27/1975 COLOGUARD 2002 COLONOSCOPY 2002 COLORECTAL CANCER SCREENING 2002 FIT TEST 2002 FOBT 2002 SIGMOIDOSCOPY 2002 VIRTUAL COLONOSCOPY 2002 ZOSTER VACCINES (1 of 2) 09/27/2007 RSV VACCINE (1 - Risk 60-74 years 1-dose series) 2017 PNEUMOCOCCAL VACCINES (50+ years) (2 of 2 - PCV) 07/02/2019 07/02/2018, 06/14/2017, 12/01/2007 OSTEOPOROSIS SCREENING INITI AL (ONE-TIME) 2022 MAMMOGRAM 08/24/2023 08/23/2021, 06/11/2019, 06/06/2018 COVID-19 VACCINE (1 - 2023-2 5 season) 2024 Adult Td,Tdap Booster 01/08/2026 01/09/2016 SCREENING FOR DIABETES 12/15/2026 , 10/29/2023, 10/25/2023 LIPID PANEL 10/17/2028 10/18/2023 HEPATITIS A VACCINES Aged Out No long er eligible based on patient's age to complete this topic HIB VACCINES Aged Out No longer eligi ble based on patient's age to complete this topic MENINGOCOCCAL VACCINES (ACWY) Aged Out No longer eligible based on patient's age to complete this topic MENINGOCOCCAL VACCINES (B) Aged Out N o longer eligible based on patient's age to complete this topic Medical Devices Not on file [place] [id number] [facility] MEDICARE REPLACEMENT [place] [id number] MEDICARE PART A & B Member Subscriber Plan / Payer (Ef fective 2023-Present) Name:Dana Winter Member ID:[id number] Relation to Subscriber:Self Name:Dana Winter Subscriber ID:[id number] Payer ID:[id number] Group ID:Not on file Type:Medicare Address: [employer] [address] [place] [address] [place] [address] MEDICARE REPLACEMENT MEDICARE PART A & B [facility] MEDICARE REPLACEMENT MEDICARE PART A & B MEDICARE REPLACEMENT [place] [id number] MEDICARE PART A & B [facility] MEDICARE REPLACEMENT MEDICARE PART A & B [facility] MEDICARE REPLACEMENT Care Teams Heat Engineering Teacher Relationship Specialty Start Date End Date Cherrie Gómez MD [address] [place] [id number] PCP - General Internal Medicine 08/01/23 Additional Source Comments The information contained in this document represents components of the legal health record. It is not the complete legal health record.[facility]
[2024-12-21 15:13] VITALS: BP 118/68; PULSE 60; BMI 29.3
--- NOTE | 2024-12-21 15:13 | MHC.OFFVIS ---
Vital Signs 12/21/24 15:13 Height 5 ft 4 in Weight 171 lb BMI 29.3 BP 118/68 Blood Pressure Location Lt brachial Position Sitting Pulse 60 Pulse Source Pulse Oximeter Intake Visit Reasons: 6 mth fu with device check Second Watch Sergeant Required: Yes Second Watch Sergeant Services: Second Watch Sergeant Offered & Declined Accompanied by: Daughter Allergies empagliflozin Adverse Reaction (Intermediate, Verified 10/23/24 18:23) uti Medication List - Last Reconciled 12/21/24 by Surjit Anthony MD alum-mag hydroxide-simeth 400-400-40 mg/5 mL (Mylanta Maximum Strength) 10 mL PO QID PRN amlodipine 5 mg PO DAILY aspirin (Adult Aspirin Regimen) 81 mg PO DAILY atorvastatin 80 mg PO BEDTIME Bacillus coagulans (Digestive Advantage Probiotics-Prebiotic) 1 tab po qd PO; 30 days blood sugar diagnostic (FreeStyle Lite Strips) 2times a day blood-glucose meter (FreeStyle Lite Meter kit) Twice a day blood-glucose sensor (FreeStyle Zunilda 3 Plus Sensor device) As directed for coninuous use change every 15 days blood-glucose,brand planner,cont (FreeStyle Zunilda 3 [place]) As directed calcium carbonate-vitamin D3 600 mg-10 mcg (400 unit) 1 tab PO BID cholecalciferol (vitamin D3) 50 mcg PO DAILY [diabetic shoes extra depth orthopedic shoes ( 1 pair ) with customize heat molded multi density inner soles ( 3 pair) Dispense 1 Sig: As directed DX: And IDDM /polyneuropathy ( E11 0.42 ); hammertoe foot deformity ( M 20.41, and 20.42 ) pre ulcerative skin lesion ( L 85.1 ) Diagnosis ( E11 0.42 ) type 2 diabetes with polyneuropathy] [diabetic shoes extra depth orthopedic shoes ( 1 pair ) with customize heat molded multi density inner soles ( 3 pair) Dispense 1 Sig: As directed DX: And IDDM /polyneuropathy ( E11 0.42 ); hammertoe foot deformity ( M 20.41, and 20.42 ) pre ulcerative skin lesion ( L 85.1 ) Diagnosis ( E11 0.42 ) type 2 diabetes with polyneuropathy] dicyclomine 20 mg PO QID escitalopram oxalate 20 mg PO DAILY famotidine (Pepcid) 40 mg PO BEDTIME 30 days ferrous sulfate 325 mg PO BID flecainide 50 mg PO Q12H furosemide 20 mg PO DAILY gabapentin 300 mg PO BEDTIME glucose (Dex4 Glucose) 16 grams (4 x 4 gram) PO Q15M PRN 30 days MDD 16 tablets insulin lispro protamin-lispro 100 unit/mL (75-25) (Humalog Mix 75-25(U-100)Insuln) 25 units before breakfast subcutaneously every morning; 30 days insulin syringe-needle U-100 As directed twice daily NS lancets (FreeStyle Lancets) As directed linaclotide (Linzess) 145 mcg PO QAM Held on 05/08/24. Instructions: Doctor's Order loperamide 2 mg PO Q6H PRN meclizine 25 mg PO DAILY PRN metformin 1,000 mg PO BID 90 days metoclopramide HCl 5 mg PO QID metoprolol succinate ER 25 mg PO DAILY multivitamin 1 tab PO DAILY oxybutynin chloride 5 mg PO BID pioglitazone 15 mg PO DAILY 30 days rabeprazole 20 mg PO BID sennosides (senna) 17.2 mg (2 x 8.6 mg) PO BEDTIME PRN Held on 10/26/22. Instructions: Doctor's Order simethicone (Gas Relief (simethicone)) 125 mg PO BID-QID PRN trazodone 100 mg PO BEDTIME PRN HPI Comments Details: Dana returns for follow-up regarding various cardiac issues. To recall, she has a history of atrial fibrillation. She also has orthostatic hypotension. In the past, she had a fall leading to subdural hemorrhage. She was taking Eliquis but because of intracranial hemorrhage she went for Watchman device placement. She seems to be stable in that regard. With regard to orthostatic hypotension she was taking midodrine. However blood pressures rather started going up and hence Midodrine was stopped and amlodipine started. Otherwise, various complaints like fatigue, dizziness with changing positions and walking led to a stress test which revealed chronotropic incompetence. Following this, referred to EP and she underwent a pacemaker placement. Today, she is here with a daughter. Daughter states that she is not taking care of herself and doing things like smoking and alcohol excess. Same complaints as she had mentioned last time. She is not eating a healthy diet either. However, no clear-cut cardiac concerns otherwise. [facility] Medical History (Updated 10/24/24 @ 00:01 by Sue Koehler) Diabetes mellitus type 2, insulin dependent Diastolic dysfunction Hypertension CKD stage 3 secondary to diabetes Gastroparesis due to secondary diabetes Bradycardia Burning with urination Encounter for monitoring anti-arrhythmic therapy Essential hypertension Abdominal bloating Small intestinal bacterial overgrowth Nausea and vomiting Dysphagia Periumbilical abdominal pain Globus sensation Orthostatic hypotension Presence of Watchman left atrial appendage closure device Subdural hematoma Syncope and collapse PAF (paroxysmal atrial fibrillation) Vitamin D deficiency Anxiety Depression Overweight (BMI 25.0-29.9) Dyslipidemia Non-toxic multinodular goiter Diabetic polyneuropathy associated with type 2 diabetes mellitus Diabetic retinopathy associated with type 2 diabetes mellitus Diabetes type 2, controlled Surgical History Hx of breast reduction, elective History of cholecystectomy H/O esophagogastroduodenoscopy Hx of colonoscopy History of gastric bypass History of gastric bypass Hx of hand surgery Family History Father CVD (cardiovascular disease) Mother Diabetes Social History Household Members: Spouse Alcohol intake: never Patient Tobacco Use Status: Former Tobacco user Tobacco use type: Cigarette Review of Systems Const Denies weakness ENT Denies dizziness Card Denies chest pain, Denies chest pain with activity, Denies syncope, Denies rapid heart rate, Denies pedal edema, Denies edema, Denies leg edema, Denies lightheadedness, Denies palpitations, Denies dyspnea, Denies dyspnea on exertion and Denies orthopnea Resp Denies cough, Denies dyspnea and Denies dyspnea on exertion GI Denies hematochezia and Denies change in stool character Musc Denies abnormal gait, Denies muscle cramps, Denies muscle weakness, Denies numbness, Denies radiating pain into limb and Denies tingling Neuro Denies abnormal gait, Denies dizziness, Denies syncope, Denies numbness, Denies tingling and Denies weakness Endo Denies palpitations Physical Exam Vital Signs: Last Vital Signs Pulse 60 12/21/24 15:13 BP 118/68 12/21/24 15:13 BMI result Body Mass Index 29.3 Const General: comfortable and no acute distress Orientation/consciousness: patient oriented x3 HEENT Other: Unremarkable Head: Yes normal to inspection Neck Neck: Yes normal visual inspection Chest Chest palpation & inspection: normal inspection of the chest Resp Auscultation: clear to auscultation bilaterally Cardio Palpation: normal PMI Heart sounds: S1 normal heart sound present, S2 normal heart sound present, no gallops, no murmurs and no rubs GI Palpation (GI): Soft to palpation Back/Spine/Pelvis Other: unremarkable Skin General skin exam: no rashes or lesions noted Neuro General: patient oriented x3 Extrem General: Yes normal to inspection Psych Mental Status: mental status grossly normal Office Procedures Cardiac Device Check Cardiac Device Check Details: Pacemaker interrogated today. Dual-chamber device, programmed DDDR. Battery status 8.3-8.9 years. Normal lead parameters. Atrial pacing 93%. Ventricular pacing 84%. Overall, normal device function. 27129-[place] Cardiac Device Check, pacemaker dual lead Procedure code (CPT) selection complete EKG Details: EKG with AV dual paced rhythm at 60/Min but atrial spikes are not very clear. [id number]-Diiliuwjwgldkynlq, Complete Assessment & Plan Assessment & Plan (1) PAF (paroxysmal atrial fibrillation): Code(s): I48.0 - Paroxysmal atrial fibrillation Category: Medical Plan: Stable on beta-blockers and flecainide. No changes. (2) Presence of Watchman left atrial appendage closure device: Code(s): Z95.818 - Presence of other cardiac implants and grafts Category: Medical Plan: Due to fall, subdural hemorrhage while on anticoagulation, she is now status post Watchman device. Continue Aspirin. (3) Chronic diastolic (congestive) heart failure: Code(s): I50.32 - Chronic diastolic (congestive) heart failure Category: Medical Plan: Echocardiogram had grade 3 diastolic dysfunction. Preserved LVEF. No clinical congestive heart failure. (4) Orthostatic hypotension: Code(s): I95.1 - Orthostatic hypotension Category: Medical Plan: She is off midodrine. No recent issues. (5) Abnormal EKG: Code(s): R94.31 - Abnormal electrocardiogram [ECG] [EKG] Category: Medical Plan: T-wave inversions noted in the past could be related to pacemaker memory. She has got no cardiac symptoms whatsoever. Most recently, perfusion imaging from 11/2023 was unremarkable. (6) Chronotropic incompetence: Code(s): I45.89 - Other specified conduction disorders Category: Medical Plan: Status post pacemaker. Rate response settings have been adjusted in the past. Plan Discussion Notes During the visit, we discussed the continuation of the current medication regimen, including flecainide, metoprolol, and baby aspirin, which are effectively managing her atrial fibrillation and hypertension. The patient was advised on safety measures to prevent falls, and a follow-up appointment was scheduled for six months to evaluate her progress and make any necessary adjustments to her treatment plan. Patient was informed and verbally consented to the use of an ambient scribe for clinic note documentation during this visit. Discussed with daughter who came for appointment. Patient Instructions: - Continue taking flecainide, metoprolol, and baby aspirin as prescribed. - Follow safety measures to prevent falls. - Attend the follow-up appointment in six months. Coding Level of Care Code Est Pt Level 4 (77988) Complex EM visit Add On G2211 Diagnoses PAF (paroxysmal atrial fibrillation) I48.0 Presence of Watchman left atrial appendage closure device Z95.818 Chronic diastolic (congestive) heart failure I50.32 Orthostatic hypotension I95.1 Abnormal EKG R94.31 Chronotropic incompetence I45.89 CPT Codes Cardiac Device Check - Cardiac Device 2: 45548-JT Cardiac Device Check, pacemaker dual lead ([id number]) EKG - CPT: 77535-Rxxeofgefneyqzedt, Complete ([id number])
== END 2024-12-21 15:33 | disposition home or self-care (01) ==
LOC: HO.HCS 14:53
PROVIDERS: PCP Internal Medicine; Visit Provider Internal Medicine
DX: I48.0 Paroxysmal atrial fibrillation (principal); Z95.818 Presence of other cardiac implants and grafts; I50.32 Chronic diastolic (congestive) heart failure; I95.1 Orthostatic hypotension; R94.31 Abnormal electrocardiogram [ECG] [EKG]; I45.89 Other specified conduction disorders
CPT/HCPCS: 93010; 93280; 99214; G2211

== ENCOUNTER → 2024-12-21 14:53 | Outpatient (BNVA) | payer OTHER, SELFPAY | PROVIDERS: PCP Internal Medicine; Visit Provider Internal Medicine | DX: I48.0 Paroxysmal atrial fibrillation (principal); Z95.818 Presence of other cardiac implants and grafts; I50.32 Chronic diastolic (congestive) heart failure; I95.1 Orthostatic hypotension; R94.31 Abnormal electrocardiogram [ECG] [EKG]; I45.89 Other specified conduction disorders | CPT/HCPCS: 93005; 93280; 99212 ==

== ENCOUNTER 2024-12-21 17:54 | Emergency (ER) | payer OTHER, SELFPAY ==
--- NOTE | ~2024-12-21 | CT_ITS ---
CLINICAL HISTORY: fall CT of the head without contrast. Comparison 10/23/2024. Findings: There is mild atrophy. There is minimal sinus disease. No acute hemorrhage or infarct is seen. No masses are identified and there is no hydrocephalus. There is no mass-effect. Impression: No acute intracranial abnormality is identified. This document has been electronically signed by: Addi Abel MD on 12/21/2024 21:05:06
--- NOTE | ~2024-12-21 | CT_ITS ---
CLINICAL HISTORY: fall CT of the cervical spine without contrast. Comparison 10/23/2024. Findings: No acute fractures are seen. There are moderate degenerative changes. No significant malalignment is seen. There are several disc bulges. Impression: No acute fractures. This document has been electronically signed by: Addi Abel MD on 12/21/2024 21:03:58
[2024-12-21 18:05] VITALS: BP 136/60; PULSE 60; O2SAT 99; BMI 31.9
[2024-12-21 18:13] VITALS: BP 145/42; PULSE 59; RESP 16; TEMP 36.9; O2SAT 100
--- NOTE | 2024-12-21 18:23 | PC.NURSE ---
Addendum entered by Jackelyn Fofana RN 12/21/24 18:25: Patient is a 69-year-old female with a history of cognitive decline, gait instability who should be using a walker at home to ambulate,diabetes, hyperlipidemia, hypertension, chronic kidney disease, depression, paroxysmal AFib not anticoagulated, presents after unwitnessed fall two days ago and was evaluated by [facility] medic. Per daughter, patient has been making SI statements and when questioned patient states has SI with no plan. House is dirty and cluttered. Patient placed in psych safe clothing. Belongings removed and secured. Alert and cooperative. Lungs clear bilat. Respirations even and non-labored. Abdomen soft, non-tender, with positive bowel sounds. Positive pedal pulses with no edema. Original Note: Medical History Diabetes mellitus type 2, insulin dependent Diastolic dysfunction Hypertension CKD stage 3 secondary to diabetes Gastroparesis due to secondary diabetes Bradycardia Burning with urination Encounter for monitoring anti-arrhythmic therapy Essential hypertension Abdominal bloating Small intestinal bacterial overgrowth Nausea and vomiting Dysphagia Periumbilical abdominal pain Globus sensation Orthostatic hypotension Presence of Watchman left atrial appendage closure device Subdural hematoma Syncope and collapse PAF (paroxysmal atrial fibrillation) Vitamin D deficiency Anxiety Depression Overweight (BMI 25.0-29.9) Dyslipidemia Non-toxic multinodular goiter Diabetic polyneuropathy associated with type 2 diabetes mellitus Diabetic retinopathy associated with type 2 diabetes mellitus Diabetes type 2, contro
--- NOTE | 2024-12-21 18:48 | ED.GENADULT ---
HPI - General Adult General Chief complaint: Psychiatric Symptoms Stated complaint: FALL, SI, ? FAILURE TO THRIVE Time Seen by Provider: 12/21/24 18:24 Source: patient, EMS and medical interpreter Mode of arrival: EMS Limitations: no limitations History of Present Illness ED Provider: DR. Ponce HPI narrative: Patient is a 69-year-old female with history of hypertension, cognitive decline, gait instability, CKD, depression, P AFib not on anticoagulation, patient at high risk for fall, DM, LDH. Has VNA visits PID, Patient fell yesterday she lost balance and fell backward hitting her head no LOC, patient overall is limited historian unable to give a detailed history. Was brought in by EMS because daughter stated that the patient has been making SI statement, and unable to care for herself. Patient feels depressed for no specific reason and declined SI, HI, hallucination. No fever, no chills, no chest pain, no abdominal pain. Related Data Home Medications ?Medication ?Instructions ?Recorded ?Confirmed calcium 600 mg (as 1 tab PO BID 03/09/20 12/21/24 carbonate)-vitamin D3 10 mcg (400 unit) tablet ferrous sulfate 325 mg (65 mg 325 mg PO BID 03/09/20 12/21/24 iron) tablet oxybutynin chloride 5 mg tablet 5 mg PO BID 03/09/20 12/21/24 trazodone 100 mg tablet 100 mg PO BEDTIME PRN Sleep 03/09/20 12/21/24 aspirin 81 mg tablet,delayed 81 mg PO DAILY 11/21/22 12/21/24 release (Adult Aspirin Regimen) escitalopram oxalate 20 mg tablet 20 mg PO DAILY 05/30/23 12/21/24 meclizine 25 mg tablet 25 mg PO DAILY PRN Dizziness 06/27/23 12/21/24 multivitamin 1 tab PO DAILY 07/26/23 12/21/24 lancets 28 gauge (FreeStyle #100 ea 10/18/23 12/21/24 Lancets) gabapentin 300 mg capsule 300 mg PO BEDTIME 07/08/24 12/21/24 loperamide 2 mg capsule 2 mg PO Q6H PRN 07/08/24 12/21/24 Previous Rx's ?Medication ?Instructions ?Recorded blood-glucose meter (FreeStyle #1 ea 09/29/20 Lite Meter kit) Bacillus coagulans 800 million See Rx Instructions PO .COMPLEX 30 06/09/21 cell tablet (Digestive Advantage days #30 tabs Probiotics-Prebiotic) atorvastatin 80 mg tablet 80 mg PO BEDTIME #30 tabs 10/03/21 blood sugar diagnostic (FreeStyle #200 ea 10/04/21 Lite Strips) cholecalciferol (vitamin D3) 50 50 mcg PO DAILY #90 caps 01/08/22 mcg (2,000 unit) capsule diabetic shoes #1 ea 04/05/22 sennosides 8.6 mg tablet (senna) 17.2 mg (2 x 8.6 mg) PO BEDTIME 08/09/22 Held on 10/26/22. PRN for constipation #60 tabs Instructions: Doctor's Order diabetic shoes #1 ea 12/21/22 linaclotide 145 mcg capsule 145 mcg PO QAM #30 caps 10/25/23 (Linzess) Held on 05/08/24. Instructions: Doctor's Order aluminum-mag hydroxide-simethicone 10 ml PO QID PRN chest pain #3,000 12/06/23 400 mg-400 mg-40 mg/5 mL oral susp mL (Mylanta Maximum Strength) famotidine 40 mg tablet (Pepcid) 40 mg PO BEDTIME 30 days #30 tabs 12/06/23 metformin 1,000 mg tablet 1,000 mg PO BID 90 days #180 tabs 02/25/24 amlodipine 5 mg tablet 5 mg PO DAILY #90 tabs 04/14/24 dicyclomine 20 mg tablet 20 mg PO QID #360 tabs 04/14/24 furosemide 20 mg tablet 20 mg PO DAILY weight gain #90 tabs 04/21/24 rabeprazole 20 mg tablet,delayed 20 mg PO BID #180 tabs 05/28/24 release simethicone 125 mg chewable tablet 125 mg PO BID-QID PRN abdominal 08/18/24 (Gas Relief (simethicone)) distention #120 tabs flecainide 50 mg tablet 50 mg PO Q12H #180 tabs 08/28/24 metoprolol succinate 25 mg 25 mg PO DAILY #90 tabs 09/28/24 tablet,extended release 24 hr glucose 4 gram chewable tablet 16 g (4 x 4 gram) PO Q15M PRN 09/30/24 (Dex4 Glucose) hypoglycemia 30 days #30 tabs insulin syringe-needle U-100 1 mL #100 ea 09/30/24 31 gauge x 5/16 metoclopramide HCl 5 mg tablet 5 mg PO QID #120 tabs 10/13/24 pioglitazone 15 mg tablet 15 mg PO DAILY 30 days #30 tabs 10/20/24 blood-glucose sensor (FreeStyle #2 ea 11/30/24 Zunilda 3 Plus Sensor device) blood-glucose,drier feeder,cont #1 ea 11/30/24 (FreeStyle Zunilda 3 [place]) insulin lispro protamine-lispro See Rx Instructions subcut QAM 30 12/21/24 100 unit/mL (75-25) subcutaneous days #15 mL susp (Humalog Mix 75-25(U-100)Insuln) cefuroxime axetil 250 mg tablet 250 mg PO BID 7 days #14 tabs 12/22/24 Allergies Allergy/AdvReac Type Severity Reaction Status Date / Time empagliflozin AdvReac Intermediate uti Verified 12/21/24 18:08 Review of Systems Review of Systems: All other systems are reviewed and are negative Constitutional: Reports as per HPI and Reports no additional constitutional complaints Eyes: Reports as per HPI and Reports no additional eye complaints Reports system reviewed and no additional complaints, except as documented Cardiovascular: Reports as per HPI and Reports no additional cardiovascular complaints Respiratory: Reports as per HPI and Reports no additional respiratory complaints Gastrointestinal: Reports as per HPI and Reports no additional gastrointestinal complaints Genitourinary: Reports no additional female genitourinary complaints Musculoskeletal: Reports no additional musculoskeletal complaints Skin/Breast: Reports system reviewed and no additional complaints, except as docu Psychiatric: Reports no additional psychiatric complaints Endocrine: Reports no additional endocrine complaints Hematologic/Lymphatic: Reports no additional hematologic/lymphatic complaints Allergic/Immunologic: Reports no additional allergic/immunologic complaints Reports system reviewed and no additional complaints, except as documented and Reports Abnormal speech present [facility] Past Medical History Medical History Diabetes mellitus type 2, insulin dependent Diastolic dysfunction Hypertension CKD stage 3 secondary to diabetes Gastroparesis due to secondary diabetes Bradycardia Burning with urination Encounter for monitoring anti-arrhythmic therapy Essential hypertension Abdominal bloating Small intestinal bacterial overgrowth Nausea and vomiting Dysphagia Periumbilical abdominal pain Globus sensation Orthostatic hypotension Presence of Watchman left atrial appendage closure device Subdural hematoma Syncope and collapse PAF (paroxysmal atrial fibrillation) Vitamin D deficiency Anxiety Depression Overweight (BMI 25.0-29.9) Dyslipidemia Non-toxic multinodular goiter Diabetic polyneuropathy associated with type 2 diabetes mellitus Diabetic retinopathy associated with type 2 diabetes mellitus Diabetes type 2, controlled Surgical History Hx of breast reduction, elective History of cholecystectomy H/O esophagogastroduodenoscopy Hx of colonoscopy History of gastric bypass History of gastric bypass Hx of hand surgery Family History Family History Father CVD (cardiovascular disease) Mother Diabetes Social History Social History Household Members: Spouse Alcohol intake: never Patient Tobacco Use Status: Former Tobacco user Tobacco use type: Cigarette Smoked in Last 30 Days: Yes Use of substances other than those prescribed or required for medical reasons: No Advance Directives: No Advance Directives Information Provided: No Physical Exam ED Vital Signs: Vital Signs - 24 hr 12/21/24 18:13 12/22/24 00:37 12/22/24 04:05 Temperature 98.4 F 97.9 F Pulse Rate 59 55 Respiratory Rate 16 18 18 Blood Pressure 145/42 H 157/74 H Pulse Oximetry 100 96 Oxygen Delivery Method Room Air Room Air 12/22/24 08:54 Temperature 98.1 F Pulse Rate 60 Respiratory Rate 14 Blood Pressure 171/76 H Pulse Oximetry 99 Oxygen Delivery Method Room Air BMI result Body Mass Index 31.9 Vital signs have been reviewed and appear to be correct. Blood pressure elevated. Heart rate normal. Respiratory rate normal. Temperature normal. Oxygen saturation normal. Appearance: Alert. Oriented X3. No acute distress. Head: Normal external exam. Normocephalic. Atraumatic. No Betts signs noted. No raccoon eyes noted Eyes: PERRLA. EOMI. Conjunctiva and sclera normal. Eyelids normal. ENT: TM's Normal. Pharynx normal. Uvula midline. Moist mucous membranes. No trismus noted. No drooling noted. No muffled voice noted. Neck: Normal inspection. Neck supple. FROM. No adenopathy. Thyroid Normal. No meningeal signs. No neck mass noted. CVS: Normal heart rate and rhythm. Heart sound normal. No murmurs noted. Pulses normal throughout. Respiratory: No respiratory distress. Painless inspiration. Breath sounds normal. No wheezes/rales/rhonchi noted. Chest nontender. No accessory muscle usage noted or decreased air movement noted. Abdomen: Soft and nontender. Bowel sounds normal in all 4 quadrants. No distention noted. No organomegaly noted. No visible injury noted. Back: No CVA tenderness. Full range of motion noted. Skin: Skin warm and dry. Normal skin color. Normal skin turgor. No rashes/lesions/lacerations noted. Extremities: No lower extremity edema. Extremities exhibit normal range of motion. Extremities nontender. Neuro: Oriented X 3. Cranial nerve exam: II-XII are grossly intact No motor deficit. No sensory deficit. Reflexes normal. Course Reevaluation(s) Reevaluation #1: S/p mechanical fall, normal neuro exam, GCS of 15, negative head CT/cervical spine CT. Medically cleared, start physician observation, care team evaluation. Time: 20:00 Reevaluation #2: care team input is appreciated, patient currently is not suicidal, no homicidal. Care team recommended case management and PT evaluation. Time: 22:06 Reevaluation #3: Time: 10:44 Date: 12/22/24 Provider: JOHNNY Wilkerson Physician observation ended at 10:45. Patient has been cleared for discharge by the CARE team as well as physical therapy. There was a urine that was collected this morning, does appear that she has a urinary tract infection. We will start on cefuroxime. Patient passed physical therapy, no need for short-term rehab at this time. Patient will be discharged home with family. No current SI or HI risk. Medical Decision Making Differential Diagnosis Differential Diagnoses: The differential diagnosis associated with the presentation includes (Intracranial bleed, cervical spine injury, electrolyte derangement, severe anemia, medical clearance, psych evaluation.) Admission/Observation Consideration of admission/observation: Escalation of care including admission/observation considered Lab Data MDM Lab Attestation statement: I reviewed the patient's lab results. 12/21/24 19:36 12/21/24 19:36 Labs: Lab Results 12/21/24 12/22/24 Range/Units 19:36 05:29 WBC 4.7 L (4.8-10.8) X10*3/uL RBC 3.67 L (4.20-5.50) X10*6/uL Hgb 11.8 L (12.0-16.0) g/dl Hct 33.3 L (37.0-47.0) % MCV 90.7 (80.0-98.0) fL MCH 32.2 (27.0-33.0) pg MCHC 35.4 H (31.0-35.0) g/dl RDW 12.4 (11.0-16.0) % Plt Count 154 L (160-400) X10*3/uL MPV 9.6 (9.4-12.3) fL Immature Gran % (Auto) 0.2 (0.0-0.4) % Neut % (Auto) 66.0 (45-73) % Lymph % (Auto) 22.4 (20-40) % [place] % (Auto) 9.5 (2-11) % Eos % (Auto) 1.7 (0-4) % Baso % (Auto) 0.2 (0-2) % Lymph # (Auto) 1.0 L (1.2-4.9) X10*3/uL [place] # (Auto) 0.4 (0.1-1.2) X10*3/uL Eos # (Auto) 0.1 (0.0-0.4) X10*3/uL Baso # (Auto) 0.0 (0.0-0.2) X10*3/uL Abs Immat Gran (auto) 0.01 (0.00-0.03) X10*3/uL Absolute Neuts (auto) 3.1 (2.0-8.3) x10*3/uL Absolute Nucleated RBC 0.000 (0.0-0.012) X10*3/uL Nucleated RBC % (auto) 0.0 (0.0-0.2) /100WBC Sodium 134 L (135-145) mmol/L Potassium 4.6 (3.3-5.1) mmol/L Chloride 102 (96-108) mmol/L Carbon Dioxide 25 (22-29) mmol/L Anion Gap 12 (12-20) BUN 24 H (9-16) mg/dL Creatinine 1.36 (0.5-1.4) mg/dL Estim Creat Clear Calc 40.5 Estimated GFR 39 Random Glucose 168 H (60-115) mg/dL Calcium 9.2 (8.4-10.2) mg/dL Total Bilirubin 0.3 (0.0-1.0) mg/dL AST 37 H (5-31) U/L ALT 40 H (0-31) U/L Alkaline Phosphatase 74 (39-117) U/L Total Protein 7.0 (6.5-8.0) g/dL Albumin 4.0 (3.5-5.0) g/dL Urine Color Yellow Urine Appearance Clear Urine pH 7.0 (5.0-9.0) Ur Specific [place] 1.010 (1.005-1.025) Urine Protein Negative (Neg-Trace) mg/dL Urine Glucose (UA) Negative (Negative) mg/dL Urine Ketones Negative (Negative) mg/dL Urine Blood Negative (Negative) Urine Nitrite Negative (Negative) Ur Leukocyte Esterase Moderate (2+) H (Negative) Urine RBC 0-2 (0-2) /HPF Urine WBC 21-50 H (0-5) /HPF Ur Squamous Epith Cells 0-2 (0-2) /HPF Urine Bacteria 4+ (None Seen) Hyaline Casts 0-2 (0-2) /LPF Salicylates < 5.0 L (15-30) mg/dL Urine Opiates Screen Not Detected (Not Detect) Ur Buprenorphine Scrn Not Detected (Not Detect) ng/mL Ur Oxycodone Screen Not Detected (Not Detect) ng/mL Urine Methadone Screen Not Detected (Not Detect) ng/mL Urine Fentanyl Screen Not Detected (Not Detect) Acetaminophen < 3 (<30) mcg/mL Ur Barbiturates Screen Not Detected (Not Detect) Ur Phencyclidine Scrn Not Detected (Not Detect) Ur Amphetamines Screen Not Detected (Not Detect) U Benzodiazepines Scrn Not Detected (Not Detect) Urine Cocaine Screen Not Detected (Not Detect) U Marijuana (THC) Screen Not Detected (Not Detect) Ethyl Alcohol < 10 mg/dL Independent Interpretation I performed an independent interpretation of an: CT Scan (Head/cervical spine:) Radiology Impression Discussion of test interpretation with radiology: I have reviewed the radiologist's reading. Discharge Plan Discharge Clinical Impression: Depression, Accident due to mechanical fall without injury, Acute UTI Patient Disposition: Home, Self-Care Instructions: Urinary Tract Infection in Women (ED), Depression (ED) Additional Instructions: You were seen in the emergency department and did not meet medical necessity for admission. A urine that was collected this morning does appear as though you have a urinary tract infection. I sent an antibiotic to your pharmacy. Please take this as prescribed. If any new or worsening symptoms occur including but not limited to changes in behavior, severe chest pain or shortness of breath, please seek emergent care. It was not deem necessary that you need any at home services. Prescriptions: New cefuroxime axetil 250 mg tablet 250 mg PO BID 7 Days Qty: 14 0RF No Action (DME) blood-glucose meter [FreeStyle Lite Meter] Kit See Rx Instructions miscellaneous .MEDSUPPLY Qty: 1 0RF Rx Instructions: Twice a day Digestive Advantage Probio-Pre 800 million cell tablet See Rx Instructions PO .COMPLEX 30 Days Qty: 30 3RF Rx Instructions: 1 tab po qd PO; atorvastatin 80 mg tablet 80 mg PO BEDTIME Qty: 30 11RF (DME) FreeStyle Lite Strips Strip See Rx Instructions .MEDSUPPLY Qty: 200 10RF Rx Instructions: 2times a day cholecalciferol (vitamin D3) 50 mcg (2,000 unit) capsule 50 mcg PO DAILY Qty: 90 4RF (DME) diabetic shoes See Rx Instructions .ROUTE .MEDSUPPLY Qty: 1 0RF Rx Instructions: extra depth orthopedic shoes ( 1 pair ) with customize heat molded multi density inner soles ( 3 pair) Dispense 1 Sig: As directed DX: And IDDM /polyneuropathy ( E11 0.42 ); hammertoe foot deformity ( M 20.41, and 20.42 ) pre ulcerative skin lesion ( L 85.1 ) Diagnosis ( E11 0.42 ) type 2 diabetes with polyneuropathy sennosides [senna] 8.6 mg tablet 17.2 mg PO BEDTIME PRN (Reason: for constipation) Qty: 60 0RF aspirin [Adult Aspirin Regimen] 81 mg tablet,delayed release (DR/EC) 81 mg PO DAILY Linzess 145 mcg capsule 145 mcg PO QAM Qty: 30 6RF metformin 1,000 mg tablet 1,000 mg PO BID 90 Days Qty: 180 1RF dicyclomine 20 mg tablet 20 mg PO QID Qty: 360 1RF amlodipine 5 mg tablet 5 mg PO DAILY Qty: 90 3RF furosemide 20 mg tablet 20 mg PO DAILY Qty: 90 3RF Rx Instructions: take as needed for weight gain of 3 lbs over night until at baseline weight. rabeprazole 20 mg tablet,delayed release (DR/EC) 20 mg PO BID Qty: 180 2RF simethicone [Gas Relief (simethicone)] 125 mg tablet,chewable 125 mg PO BID-QID PRN (Reason: abdominal distention) Qty: 120 6RF flecainide 50 mg tablet 50 mg PO Q12H Qty: 180 3RF metoprolol succinate 25 mg tablet extended release 24 hr 25 mg PO DAILY Qty: 90 3RF metoclopramide HCl 5 mg tablet 5 mg PO QID Qty: 120 2RF pioglitazone 15 mg tablet 15 mg PO DAILY 30 Days Qty: 30 3RF (DME) FreeStyle Zunilda 3 Plus Sensor Device See Rx Instructions .ROUTE .MEDSUPPLY Qty: 2 11RF Rx Instructions: As directed for coninuous use change every 15 days (DME) FreeStyle Zunilda 3 [place] Misc See Rx Instructions .Route Qty: 1 0RF Rx Instructions: As directed Humalog Mix 75-25(U-100)Insuln 100 unit/mL (75-25) suspension See Rx Instructions subcut QAM 30 Days Qty: 15 11RF Rx Instructions: 25 units before breakfast subcutaneously every morning; ferrous sulfate 325 mg (65 mg iron) tablet 325 mg PO BID calcium carbonate-vitamin D3 600 mg(1,500mg) -400 unit tablet 1 tab PO BID trazodone 100 mg tablet 100 mg PO BEDTIME PRN (Reason: Sleep) oxybutynin chloride 5 mg tablet 5 mg PO BID (DME) diabetic shoes See Rx Instructions .ROUTE .MEDSUPPLY Qty: 1 0RF Rx Instructions: extra depth orthopedic shoes ( 1 pair ) with customize heat molded multi density inner soles ( 3 pair) Dispense 1 Sig: As directed DX: And IDDM /polyneuropathy ( E11 0.42 ); hammertoe foot deformity ( M 20.41, and 20.42 ) pre ulcerative skin lesion ( L 85.1 ) Diagnosis ( E11 0.42 ) type 2 diabetes with polyneuropathy escitalopram oxalate 20 mg tablet 20 mg PO DAILY meclizine 25 mg tablet 25 mg PO DAILY PRN (Reason: Dizziness) multivitamin Tablet 1 tab PO DAILY (DME) lancets [FreeStyle Lancets] 28 gauge misc See Rx Instructions .ROUTE .MEDSUPPLY Qty: 100 Rx Instructions: As directed famotidine [Pepcid] 40 mg tablet 40 mg PO BEDTIME 30 Days Qty: 30 6RF alum-mag hydroxide-simeth [Mylanta Maximum Strength] 400-400-40 mg/5 mL suspension 10 ml PO QID PRN (Reason: chest pain) Qty: 3000 3RF gabapentin 300 mg capsule 300 mg PO BEDTIME loperamide 2 mg capsule 2 mg PO Q6H PRN (DME) insulin syringe-needle U-100 1 mL 31 gauge x 5/16 syringe See Rx Instructions .ROUTE .MEDSUPPLY Qty: 100 8RF Rx Instructions: As directed twice daily glucose [Dex4 Glucose] 4 gram tablet,chewable 16 g PO Q15M MDD 16 tablets PRN (Reason: hypoglycemia) 30 Days Qty: 30 3RF Rx Instructions: every 15 minutes until symptoms of low blood sugar are controlled Interventions: [place]-Suicide Risk Severity Scale Last Done: 12/21/24 18:13 Print Language: Estonian
--- NOTE | 2024-12-21 19:26 | PC.NURSE ---
this rn assumed care of pt, pt resting in stretcher, no acute distress noted, pt has sitter at bedside.
--- NOTE | 2024-12-21 19:38 | PC.NURSE ---
assumed care of pt. 1:1 sitter at bedside. blood labs were obtained and sent out. pt denies pain
[2024-12-21 19:40] LABS: MANUAL DIFF FLAG NO
[2024-12-21 19:44] LABS: Hematocrit 33.3 % (37.0-47.0); Hemoglobin 11.8 g/dl (12.0-16.0); Imm Gran Abs Auto 0.01 X10*3/uL (0.00-0.03); Imm Gran Pct Auto 0.2 % (0.0-0.4); Lymphocytes Absolute Auto 1.0 X10*3/uL (1.2-4.9); Mean Corpuscular HGB Conc 35.4 g/dl (31.0-35.0); Mean Corpuscular Hemoglobin 32.2 pg (27.0-33.0); Mean Corpuscular Volume 90.7 fL (80.0-98.0); NRBC Abs Auto 0.000 X10*3/uL (0.0-0.012); NRBC Pct Auto 0.0 /100WBC (0.0-0.2); Platelet Count 154 X10*3/uL (160-400); Red Blood Count 3.67 X10*6/uL (4.20-5.50); White Blood Count 4.7 X10*3/uL (4.8-10.8)
[2024-12-21 20:00] LABS: Acetaminophen LAB < 3 mcg/mL (<30); Alanine Aminotransferase 40 U/L (0-31); Albumin Level 4.0 g/dL (3.5-5.0); Alkaline Phosphatase 74 U/L (39-117); Anion Gap 12 (12-20); Aspartate Amino Transferase 37 U/L (5-31); Blood Urea Nitrogen 24 mg/dL (9-16); Calcium 9.2 mg/dL (8.4-10.2); Carbon Dioxide 25 mmol/L (22-29); Chloride 102 mmol/L (96-108); Creatinine Clr Calc Pharmacy 40.5; Estimated Glomerular Filt Rate 39; Potassium 4.6 mmol/L (3.3-5.1); Salicylate < 5.0 mg/dL (15-30); Sodium 134 mmol/L (135-145); Total Protein 7.0 g/dL (6.5-8.0)
--- NOTE | 2024-12-21 22:54 | MHC.CM.ED ---
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 Pt lives with . Has a cane that she doesn't often use. VNA comes twice a day for medication management. Pt has cognitive decline. Attends a day program. Wears depends. Poor historian. tells CM she has frequent falls. she has diabetic neuropathy/retinopathy. PCP is Cherrie Paredes. HCP on file. VNA comes twice daily. Neither patient or know what agency comes to the house. They have no other services. Pt has [employer] insurance. PT is pending. Pt is up and ambulating in the ED. No referrals placed at this time. Pt and are agreeable to STR if recommended. CM will follow for discharge planning.
--- NOTE | 2024-12-21 23:00 | PC.NURSE ---
pt attempting to eave at this time, getting naked in hallway. danni RN at bedside speaking about case management with pt, pt and pt understand. pt to be seen in AM, continues to denies si/hi. elopement band in place.
[2024-12-22 00:37] VITALS: RESP 18
[2024-12-22 04:05] VITALS: BP 157/74; PULSE 55; RESP 18; TEMP 36.6; O2SAT 96
--- NOTE | 2024-12-22 05:33 | PC.NURSE ---
pt awake and ambulatory to bathroom with steady gait, urine sample obtained
[2024-12-22 06:39] LABS: Cannabinoid Screen Urine Not Detected (Not Detect)
[2024-12-22 06:57] LABS: Appearance Urine Clear; Glucose Urine UA Negative (Negative); PH 7.0 (5.0-9.0); Specific Gravity - Urine 1.010 (1.005-1.025); UMIC TRIGGER UA YES
[2024-12-22 08:54] VITALS: BP 171/76; PULSE 60; RESP 14; TEMP 36.7; O2SAT 99
--- NOTE | 2024-12-22 09:00 | PC.NURSE ---
Pt arrives to Overflow unit from main ED. Pt with family visiting at bedside. NAD noted.
--- NOTE | 2024-12-22 10:20 | MHC.CM.ED ---
Met with pt and spouse using wheel buffer. Pt states she is feeling better and more steady. PT eval supports a return to home which they both agree to. Spouse to transport. ED RN and MD aware of d/c plan
[2024-12-22 10:50] VITALS: BP 171/76; PULSE 60; RESP 14; TEMP 36.7; O2SAT 99
== END 2024-12-22 10:51 | disposition home or self-care (01) ==
PROVIDERS: Emergency Provider Emergency Medicine
DX: N39.0 Urinary tract infection, site not specified (principal); F32.A Depression, unspecified; E11.22 Type 2 diabetes mellitus with diabetic chronic kidney disease; I12.9 Hypertensive chronic kidney disease with stage 1 through stage 4 chronic kidney disease, or unspecified chronic kidney disease; Z79.4 Long term (current) use of insulin; I48.91 Unspecified atrial fibrillation; Z79.01 Long term (current) use of anticoagulants; Z79.899 Other long term (current) drug therapy
CPT/HCPCS: 36415; 70450; 72125; 80053; 80143; 80179; 80307; 81001; 81003; 85025; 97161; 99285; S9485

== ENCOUNTER → 2024-12-21 18:45 | Outpatient (BNV) | payer OTHER, SELFPAY | PROVIDERS: Emergency Provider Emergency Medicine; Visit Provider Radiology Diagnostic Radiology | DX: M50.30 Other cervical disc degeneration, unspecified cervical region (principal); R51.9 Headache, unspecified | CPT/HCPCS: 70450; 72125 ==

== ENCOUNTER 2025-01-04 15:32 | Outpatient (AMB) | payer OTHER, SELFPAY ==
--- NOTE | 2025-01-04 15:35 | A.OFFVIS_ITS ---
Vital Signs 01/04/25 15:36 Height 5 ft 3 in Weight 171 lb 15.369 oz BMI 30.5 BP 132/76 Blood Pressure Location Rt brachial Position Sitting Pulse Source Pulse Oximeter Intake Visit Reasons: T2DM Intake Note: Patient presents today for a follow-up on Type 2 Diabetes Mellitus: Last Diabetic eye exam was on: 02/2024 Last Podiatry exam was on: Does not see a Relief Salesperson Most recent HbA1c: 6.9%, 01/04/2025 Random Glucose- 86 mg/dL, Today Utilization Review Rn Required: No Utilization Review Rn Services: Utilization Review Rn Offered & Declined Information Interpreted: non-clinical & clinical Accompanied by: Daughter Allergies empagliflozin Adverse Reaction (Intermediate, Verified 01/04/25 15:44) uti Medication List - Last Reconciled 01/04/25 by Janel Lozada PA-C alum-mag hydroxide-simeth 400-400-40 mg/5 mL (Mylanta Maximum Strength) 10 mL PO QID PRN amlodipine 5 mg PO DAILY aspirin (Adult Aspirin Regimen) 81 mg PO DAILY atorvastatin 80 mg PO BEDTIME Bacillus coagulans (Digestive Advantage Probiotics-Prebiotic) 1 tab po qd PO; 30 days blood sugar diagnostic (FreeStyle Lite Strips) 2times a day blood-glucose meter (FreeStyle Lite Meter kit) Twice a day blood-glucose sensor (FreeStyle Zunilda 3 Plus Sensor device) As directed for coninuous use change every 15 days blood-glucose,regulatory intern,cont (FreeStyle Zunilda 3 [place]) As directed bupropion HCl XL (Wellbutrin XL) 150 mg PO QAM calcium carbonate-vitamin D3 600 mg-10 mcg (400 unit) 1 tab PO BID cefuroxime axetil 250 mg PO BID 7 days cholecalciferol (vitamin D3) 50 mcg PO DAILY [diabetic shoes extra depth orthopedic shoes ( 1 pair ) with customize heat molded multi density inner soles ( 3 pair) Dispense 1 Sig: As directed DX: And IDDM /polyneuropathy ( E11 0.42 ); hammertoe foot deformity ( M 20.41, and 20.42 ) pre ulcerative skin lesion ( L 85.1 ) Diagnosis ( E11 0.42 ) type 2 diabetes with polyneuropathy] [diabetic shoes extra depth orthopedic shoes ( 1 pair ) with customize heat molded multi density inner soles ( 3 pair) Dispense 1 Sig: As directed DX: And IDDM /polyneuropathy ( E11 0.42 ); hammertoe foot deformity ( M 20.41, and 20.42 ) pre ulcerative skin lesion ( L 85.1 ) Diagnosis ( E11 0.42 ) type 2 diabetes with polyneuropathy] dicyclomine 20 mg PO QID escitalopram oxalate 20 mg PO DAILY famotidine (Pepcid) 40 mg PO BEDTIME 30 days ferrous sulfate 325 mg PO BID flecainide 50 mg PO Q12H furosemide 20 mg PO DAILY gabapentin 300 mg PO BEDTIME glucose (Dex4 Glucose) 16 grams (4 x 4 gram) PO Q15M PRN 30 days MDD 16 tablets insulin syringe-needle U-100 As directed twice daily NS lancets (FreeStyle Lancets) As directed linaclotide (Linzess) 145 mcg PO QAM Held on 05/08/24. Instructions: Doctor's Order loperamide 2 mg PO Q6H PRN meclizine 25 mg PO DAILY PRN metformin 1,000 mg PO BID 90 days metoclopramide HCl 5 mg PO QID metoprolol succinate ER 25 mg PO DAILY multivitamin 1 tab PO DAILY oxybutynin chloride 5 mg PO BID pioglitazone 15 mg PO DAILY 30 days rabeprazole 20 mg PO BID sennosides (senna) 17.2 mg (2 x 8.6 mg) PO BEDTIME PRN Held on 10/26/22. Instructions: Doctor's Order simethicone (Gas Relief (simethicone)) 125 mg PO BID-QID PRN trazodone 100 mg PO BEDTIME PRN HPI HPI T2DM: Details: Patient is 69-year-old female with DM type 2 diagnosed 1989 who presents for f/u diabetes visit. Previously following with my colleague. She has a significant past medical history of celiac disease, pacemaker, CHF, CKD stage 3, PAF, dyslipidemia, hypertension, memory impairment with a history of a subdural hematoma and insulin-dependent type 2 diabetes. Endo: Dm-A1c today is 6.9. She is currently on Humalog mix insulin 25 units qam , metformin 1000 mg twice a day and Actos 15 mg Since switching to combo insulin she has been getting frequent lows. She has gotten low overnight and has fallen due to this. She has also been low during the day. She struggles remembering to eat and eating consistently. -She previously had been on acarbose and Jardiance. She has had multiple klebsiella + uti's in the past. She has gastroparesis on multiple agents and GLP 1 agonists are contraindicated. cgm-97% usage, average glucose 132, G mi 6.6 %. Very hyperglycemic 5%, hyperglycemic 19%, in range 69%, hypoglycemic 6%, very hypoglycemic 1% Hypoglycemia: denies she does not carry a source of sugar and was not able to articulate how to deal with low. 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 she is followed regularly by Dr. Otoole Other specialists: Cardiology: Followed for AFib orthostasis Tobacco: 4 per day has been thinking about quitting Alcohol: reports no alcohol Diet: eats what she wants does eat conc sweets Issues with memory. She has history of prior fall with subdural hematoma. She attends a day program. [facility] contact: Willow A [phone] CV: Blood pressure today in the office is 132/76. She is currently on amlodipine 5 mg daily, metoprolol 25 mg daily. Cholesterol has been managed with atorvastatin 80 mg. [facility] Medical History Diabetes mellitus type 2, insulin dependent Diastolic dysfunction Hypertension CKD stage 3 secondary to diabetes Gastroparesis due to secondary diabetes Bradycardia Burning with urination Encounter for monitoring anti-arrhythmic therapy Essential hypertension Abdominal bloating Small intestinal bacterial overgrowth Nausea and vomiting Dysphagia Periumbilical abdominal pain Globus sensation Orthostatic hypotension Presence of Watchman left atrial appendage closure device Subdural hematoma Syncope and collapse PAF (paroxysmal atrial fibrillation) Vitamin D deficiency Anxiety Depression Overweight (BMI 25.0-29.9) Dyslipidemia Non-toxic multinodular goiter Diabetic polyneuropathy associated with type 2 diabetes mellitus Diabetic retinopathy associated with type 2 diabetes mellitus Diabetes type 2, controlled Surgical History Hx of breast reduction, elective History of cholecystectomy H/O esophagogastroduodenoscopy Hx of colonoscopy History of gastric bypass History of gastric bypass Hx of hand surgery Family History Father CVD (cardiovascular disease) Mother Diabetes Social History Household Members: Spouse Alcohol intake: never Patient Tobacco Use Status: Former Tobacco user Tobacco use type: Cigarette Physical Exam Const Orientation/consciousness: patient oriented x3 HEENT Ears: hearing grossly normal bilaterally Neck Thyroid: Thyroid normal Lymphatic: no lymphadenopathy noted Resp Auscultation: clear to auscultation bilaterally Cardio Rate: regular rate Rhythm: regular rhythm Heart sounds: S1 normal heart sound present and S2 normal heart sound present Skin General skin exam: no rashes or lesions noted Neuro General: patient oriented x3, gait normal and no focal motor deficits Results AMB Hemoglobin A1c AMB Hemoglobin A1c 6.9 % Last Edit by SEBASTIAN Srivastava on 01/04/25 15:49 Results Reviewed Results Reviewed: Laboratory Tests 10/18/23 10/18/23 12/21/24 10:30 11:22 19:36 Creatinine 1.36 Estimated GFR 39 Random Glucose 168 H Hgb A1c (Clinic) 9.6 H Urine Creatinine 81.36 Urine Microalbumin 9.0 Microalb/Creat Ratio 11.0 Assessment & Plan Assessment & Plan (1) Diabetes mellitus type 2, insulin dependent: Code(s): E11.9 - Type 2 diabetes mellitus without complications; Z79.4 - termite treater (current) use of insulin Category: Medical Plan: Switch back to Lantus 25 units daily Continue with the metformin and pioglitazone. Return in 1 month to be reassessed. Sooner if needed. Patient and daughter understand and agree with this plan. Orders: Orders AMB Hemoglobin A1c Today E11.9 - Type 2 diabetes mellitus without complications Medications: New insulin glargine (Lantus Solostar U-100 Insulin) 25 units (0.25 mL) subcut QAM 15 mL 3RF Changed From pioglitazone 15 mg PO DAILY 30 days 30 tabs 3RF To pioglitazone 15 mg PO DAILY 90 tabs 3RF 90 days Refilled metformin 1,000 mg PO BID 180 tabs 1RF 90 days Patient Instructions: switch back to lantus 25 units every morning continue metformin 1000 mg twice a day cotninue actos 15 mg daily return in 1 month to recheck due to lows Coding Level of Care Code Est Pt Level 4 (50004) Complex EM visit Add On G2211 Diagnoses Diabetes mellitus type 2, insulin dependent E11.9; Z79.4
[2025-01-04 15:36] VITALS: BP 132/76; BMI 30.5
[2025-01-04 15:44] LABS: Glucose, Whole Blood 86 mg/dL (60-115)
--- OUTSIDE RECORDS SUMMARY | 2025-01-04 16:01 | XMS_ITS | Encounter Summary ---
Author Organization [employer] Address [address] [place] [address] Care Team Providers Care Draftsperson Name Role Phone Cherrie Gómez MD Primary Care Provide r Reason for Visit * Reason Onset Date Comments Hospital Follow-up 05/06/2024 Encounter Details Date Type Department Care Team ([facility] Contact Info) Description 05/06/2024 Telephone [facility] [address] [place] [address] Cherrie Gómez MD [address] [place] [address] Hospital Follow-up Social History Tobacco Use Types [...] daughter, MAYURI, reports Pt was seen in [facility] ED 05/06/24 for UTI. Pt didn't have [...] prior to booking. Will request information from [facility] visit 05/06/24 be obtained for chart. Protocol [...] 05/06/2024 2:05 PM EST Triage call with [facility] transverse abdominal muscle surgeon , [place] [address]. Call to [phone] no answer, voice mail message left to call [facility] [phone]. Call to [phone], no answer. Left voice message to call [facility] [phone] * Telephone Encounter - Sincere Chang - 05/06/2024 12:09 PM EST Tc from pt requesting a HDF appt. Hospital: [facility] Date of admission: 05/06/2024 Discharge date: 05/06/2024 Diagnosed: UTI *Send message to [place] Clinical Care Coordinators documented in this encounter Plan of Treatment Upcoming Encounters Date Type Department Care Team (Late st Contact Info) Description 01/28/2025 3:30 PM EDT Office Visit [facility] [address] [place] [id number] Cherrie Gómez MD [address] [place] [address] documented as of this encounter Visit Diagnoses Not on filedocumented in this encounter Additional Health Concerns Assessment Noted Time PHQ-9 Depression Total Score: 20 023 2:53 PM EST documented as of this encounter Care Teams Draftsperson Relationship Specialty Start Date End Date Cherrie Gómez MD [address] [place] [address] [phone] PCP - General Family Medicine 6/18/20 [facility] 08/06/19 documented as of this encounter
--- OUTSIDE RECORDS SUMMARY | 2025-01-04 16:01 | XMS_ITS | Clinical Summary ---
Author Organization [facility] Address [address] [facility] [address] [place] [address] Phone Care Team Providers Care Sales Enablement Consultant Name Role Phone Cherrie Gómez MD [...] Active ferrous sulfate 325 mg (65 mg gambell iron) tablet Take 325 mg by mouth [...] [place] [id number] [facility] MEDICARE REPLACEMENT [place] [id number] MEDICARE PART A & B Member Subscriber Plan / Payer (Ef fective 2023-Present) Name:Dana Winter Member ID:[id number] Relation to Subscriber:Self Name:Dana Winter Subscriber ID:[id number] Payer ID:[id number] Group ID:Not on file Type:Medicare Address: [employer] [address] [place] [address] [place] [address] MEDICARE REPLACEMENT MEDICARE PART A & B [facility] MEDICARE REPLACEMENT MEDICARE PART A & B MEDICARE REPLACEMENT [place] [id number] MEDICARE PART A & B [facility] MEDICARE REPLACEMENT MEDICARE PART A & B [facility] MEDICARE REPLACEMENT Care Teams Sales Enablement Consultant Relationship Specialty Start Date End Date Cherrie Gómez MD [address] [place] [phone] PCP - General Internal Medicine 08/01/23 Additional Source Comments The information contained in this document represents components of the legal health record. It is not the complete legal health record.[facility]
--- OUTSIDE RECORDS SUMMARY | 2025-01-04 16:02 | XMS_ITS | Clinical Summary ---
Author Organization [facility] Address [address] [place] [address] [address] [place] [phone] Phone Care Team Providers Care Playground Attendant Name Role Phone Cherrie Gómez MD [...] 05/02/2023, 07/02/2018, 06/14/2017, Additional history exists Insurance [facility] ([id number]) [place] [id number] [place] [id number] [facility] ([id number]) [place] [id number] Care Teams Playground Attendant Relationship Specialty Start Date End Date Cherrie Gómez MD [address] [place] [address] [place] [phone] PCP - General 05/30/20
--- OUTSIDE RECORDS SUMMARY | 2025-01-04 16:02 | XMS_ITS | Clinical Summary ---
Author Organization [address] [place] [address] Address [address] [place] [address] Phone Care Team Providers Care Distribution Associate Name Role Phone Cherrie Gómez MD Primary Care Provide r Surgical History Surgery Date Site/Laterality Comments GASTRIC BYPASS PROCEDURE: GASTRIC BYPASS FOR OBESIT ABDOMINAL SURGERY PROCEDURE: HISTORICAL ABDOMINAL SURGERY BREAST REDUCTION PROCEDURE: NE BREAST REDUCTION CHOLECYSTECTOMY PROCEDURE: NE CHOLECYSTECTOMY FOOT SURGERY PROCEDURE: HISTORICAL FOOT SURGERY; COMMENT: right foot,little toe Medical History Medical History Date Comments Diabetes mellitus ([facility] V 24, CMS/HCC V28) DX:Diabetes [...] patient's age to complete this topic Insurance [facility] MEDICARE Member Subscriber Plan / Payer (Ef fective 2024-Present) Name:Dana Wintre Relation to Subscriber:Self Name:Dana Winter Payer ID:[id number] Group ID:[id number] Type:Not on file Address: [address] [place] [id number] MED[place] - [place] Care Teams Distribution Associate Relationship Specialty Start Date End Date Cherrie Gómez MD [address] [place] [phone] PCP - General Internal Medicine 08/04/24
== END 2025-01-04 16:01 | disposition home or self-care (01) ==
LOC: HO.ENCR 15:33
PROVIDERS: PCP Internal Medicine; Visit Provider Physician Assistant
DX: E11.9 Type 2 diabetes mellitus without complications (principal); Z79.4 Long term (current) use of insulin

== ENCOUNTER → 2025-01-04 15:32 | Outpatient (BNVA) | payer OTHER, SELFPAY | PROVIDERS: PCP Internal Medicine; Visit Provider Physician Assistant | DX: E11.22 Type 2 diabetes mellitus with diabetic chronic kidney disease (principal); I13.0 Hypertensive heart and chronic kidney disease with heart failure and stage 1 through stage 4 chronic kidney disease, or unspecified chronic kidney disease; I50.9 Heart failure, unspecified; N18.30 Chronic kidney disease, stage 3 unspecified; I48.0 Paroxysmal atrial fibrillation; E78.5 Hyperlipidemia, unspecified; Z79.4 Long term (current) use of insulin; Z95.0 Presence of cardiac pacemaker | CPT/HCPCS: 82947; 83036; 99212 ==

== ENCOUNTER → 2025-01-21 23:59 | Outpatient (BNV) | payer OTHER, SELFPAY ==
--- NOTE | 2025-01-27 11:48 | MHC.OFFVIS ---
Intake Visit Reasons: Remote device check- [facility] Allergies empagliflozin Adverse Reaction (Intermediate, Verified 01/25/25 10:43) uti PFSH Medical History Diabetes mellitus type 2, insulin dependent Diastolic dysfunction Hypertension CKD stage 3 secondary to diabetes Gastroparesis due to secondary diabetes Bradycardia Burning with urination Encounter for monitoring anti-arrhythmic therapy Essential hypertension Abdominal bloating Small intestinal bacterial overgrowth Nausea and vomiting Dysphagia Periumbilical abdominal pain Globus sensation Orthostatic hypotension Presence of Watchman left atrial appendage closure device Subdural hematoma Syncope and collapse PAF (paroxysmal atrial fibrillation) Vitamin D deficiency Anxiety Depression Overweight (BMI 25.0-29.9) Dyslipidemia Non-toxic multinodular goiter Diabetic polyneuropathy associated with type 2 diabetes mellitus Diabetic retinopathy associated with type 2 diabetes mellitus Diabetes type 2, controlled Surgical History Hx of breast reduction, elective History of cholecystectomy H/O esophagogastroduodenoscopy Hx of colonoscopy History of gastric bypass History of gastric bypass Hx of hand surgery Family History Father CVD (cardiovascular disease) Mother Diabetes Social History Household Members: Spouse Alcohol intake: never Patient Tobacco Use Status: Former Tobacco user Tobacco use type: Cigarette Advance Directives: No Advance Directives Information Provided: No Office Procedures Cardiac Device Check Cardiac Device Check Details: Date of service- 01/21/2025 ; Battery life >8 years; normal lead parameters; AP 89%; [employer] 76%; no significant arrhythmias. Overall normal device function. [id number] Cardiac Device Interrogation, pacemaker Procedure code (CPT) selection complete Assessment & Plan Assessment & Plan (1) Pacemaker: Code(s): Z95.0 - Presence of cardiac pacemaker Category: Medical (2) Bradycardia: Code(s): R00.1 - Bradycardia, unspecified Category: Medical (3) PAF (paroxysmal atrial fibrillation): Code(s): I48.0 - Paroxysmal atrial fibrillation Category: Medical Plan x Coding Level of Care Code Procedure Only Diagnoses Pacemaker Z95.0 Bradycardia R00.1 PAF (paroxysmal atrial fibrillation) I48.0 CPT Codes Cardiac Device Check - Cardiac Device 12: [id number] Cardiac Device Interrogation, pacemaker ([id number])
== END ==
PROVIDERS: PCP Internal Medicine; Visit Provider Internal Medicine
DX: R00.1 Bradycardia, unspecified (principal); Z95.0 Presence of cardiac pacemaker; I48.0 Paroxysmal atrial fibrillation
CPT/HCPCS: 93294

== ENCOUNTER 2025-01-25 10:28 | Emergency (ER) | payer OTHER, SELFPAY ==
[2025-01-25 10:38] VITALS: BP 137/52; BP 146/60; PULSE 62; PULSE 64; RESP 16; TEMP 36.7; O2SAT 96; O2SAT 97; BMI 31.1
--- NOTE | 2025-01-25 11:53 | ED.FALL ---
HPI - Fall General Chief Complaint: Fall Stated Complaint: FALL TO KNEES,ABR/PAIN PER EMS Time Seen by Provider: 01/25/25 10:37 History of Present Illness ED Provider: BROOKE Hampton HPI Narrative: 69 yo female with medical history of T2DM, CKD 3, HTN, paroxysmal AFib with Watchman, anxiety, depression, HLD, presents to the ED due to right knee pain. When trying to get the full story, patient is not interested in describing what happened today. Patient states she has waited too long a just wants to leave. While talking to the patient I noticed a cough, attempted to get patient to stay. Patient wants to leave against medical advice. I do believe patient needs a bigger workup today, I attempted to explain this with the patient and let her know I was concerned for cough. Patient states she is not concerned and wants to leave at this time. I tried asking the patient if she was dizzy before falling, hit her head or experienced any loss of consciousness, she declines this. Related Data Home Medications ?Medication ?Instructions ?Recorded ?Confirmed calcium 600 mg (as 1 tab PO BID 03/09/20 01/04/25 carbonate)-vitamin D3 10 mcg (400 unit) tablet ferrous sulfate 325 mg (65 mg 325 mg PO BID 03/09/20 01/04/25 iron) tablet oxybutynin chloride 5 mg tablet 5 mg PO BID 03/09/20 01/04/25 trazodone 100 mg tablet 100 mg PO BEDTIME PRN Sleep 03/09/20 01/04/25 aspirin 81 mg tablet,delayed 81 mg PO DAILY 11/21/22 01/04/25 release (Adult Aspirin Regimen) escitalopram oxalate 20 mg tablet 20 mg PO DAILY 05/30/23 01/04/25 meclizine 25 mg tablet 25 mg PO DAILY PRN Dizziness 06/27/23 01/04/25 multivitamin 1 tab PO DAILY 07/26/23 01/04/25 lancets 28 gauge (FreeStyle #100 ea 10/18/23 01/04/25 Lancets) gabapentin 300 mg capsule 300 mg PO BEDTIME 07/08/24 01/04/25 loperamide 2 mg capsule 2 mg PO Q6H PRN 07/08/24 01/04/25 bupropion HCl 150 mg 24 hr tablet, 150 mg PO QAM 01/04/25 01/04/25 extended release (Wellbutrin XL) Previous Rx's ?Medication ?Instructions ?Recorded blood-glucose meter (FreeStyle #1 ea 09/29/20 Lite Meter kit) Bacillus coagulans 800 million See Rx Instructions PO .COMPLEX 30 06/09/21 cell tablet (Digestive Advantage days #30 tabs Probiotics-Prebiotic) atorvastatin 80 mg tablet 80 mg PO BEDTIME #30 tabs 10/03/21 blood sugar diagnostic (FreeStyle #200 ea 10/04/21 Lite Strips) cholecalciferol (vitamin D3) 50 50 mcg PO DAILY #90 caps 01/08/22 mcg (2,000 unit) capsule diabetic shoes #1 ea 04/05/22 sennosides 8.6 mg tablet (senna) 17.2 mg (2 x 8.6 mg) PO BEDTIME 08/09/22 Held on 10/26/22. PRN for constipation #60 tabs Instructions: Doctor's Order diabetic shoes #1 ea 12/21/22 linaclotide 145 mcg capsule 145 mcg PO QAM #30 caps 10/25/23 (Linzess) Held on 05/08/24. Instructions: Doctor's Order aluminum-mag hydroxide-simethicone 10 ml PO QID PRN chest pain #3,000 12/06/23 400 mg-400 mg-40 mg/5 mL oral susp mL (Mylanta Maximum Strength) famotidine 40 mg tablet (Pepcid) 40 mg PO BEDTIME 30 days #30 tabs 12/06/23 amlodipine 5 mg tablet 5 mg PO DAILY #90 tabs 04/14/24 dicyclomine 20 mg tablet 20 mg PO QID #360 tabs 04/14/24 furosemide 20 mg tablet 20 mg PO DAILY weight gain #90 tabs 04/21/24 rabeprazole 20 mg tablet,delayed 20 mg PO BID #180 tabs 05/28/24 release simethicone 125 mg chewable tablet 125 mg PO BID-QID PRN abdominal 08/18/24 (Gas Relief (simethicone)) distention #120 tabs flecainide 50 mg tablet 50 mg PO Q12H #180 tabs 08/28/24 metoprolol succinate 25 mg 25 mg PO DAILY #90 tabs 05/12/25 tablet,extended release 24 hr glucose 4 gram chewable tablet 16 g (4 x 4 gram) PO Q15M PRN 09/30/24 (Dex4 Glucose) hypoglycemia 30 days #30 tabs insulin syringe-needle U-100 1 mL #100 ea 09/30/24 31 gauge x 5/16 metoclopramide HCl 5 mg tablet 5 mg PO QID #120 tabs 10/13/24 blood-glucose sensor (FreeStyle #2 ea 11/30/24 Zunilda 3 Plus Sensor device) blood-glucose,anesthesiologist and critical care,cont #1 ea 11/30/24 (FreeStyle Zunilda 3 [place]) cefuroxime axetil 250 mg tablet 250 mg PO BID 7 days #14 tabs 12/22/24 metformin 1,000 mg tablet 1,000 mg PO BID 90 days #180 tabs 01/04/25 insulin glargine 100 unit/mL (3 15 unit (0.15 mL) subcut QAM #15 mL 01/20/25 mL) subcutaneous pen (Lantus Solostar U-100 Insulin) Allergies Allergy/AdvReac Type Severity Reaction Status Date / Time empagliflozin AdvReac Intermediate uti Verified 01/25/25 10:43 Review of Systems Review of Systems: CONST: Negative for fever, body aches and chills. HENT: Negative for neck pain/stiffness, headache, congestion, sore throat, swelling. EYES: Negative for discharge/pain or vision changes. RESP: Negative for cough/hemoptysis and shortness of breath. CV: Negative chest pain, difficulty breathing, palpitations. ABD: Negative pain, nausea, vomiting. : Negative increase frequency, dysuria, blood in urine or stool. MUSC: Negative for muscle aches, edema. POS R knee pain SKIN: Negative rash, lesions/sores. NEURO: Negative headache, dizziness, weakness. Yes all other systems are reviewed and are negative PMFSH Past Medical History Attestation statement: The following information was validated with the patient. Source: old records reviewed and nursing notes reviewed Medical History Diabetes mellitus type 2, insulin dependent Diastolic dysfunction Hypertension CKD stage 3 secondary to diabetes Gastroparesis due to secondary diabetes Bradycardia Burning with urination Encounter for monitoring anti-arrhythmic therapy Essential hypertension Abdominal bloating Small intestinal bacterial overgrowth Nausea and vomiting Dysphagia Periumbilical abdominal pain Globus sensation Orthostatic hypotension Presence of Watchman left atrial appendage closure device Subdural hematoma Syncope and collapse PAF (paroxysmal atrial fibrillation) Vitamin D deficiency Anxiety Depression Overweight (BMI 25.0-29.9) Dyslipidemia Non-toxic multinodular goiter Diabetic polyneuropathy associated with type 2 diabetes mellitus Diabetic retinopathy associated with type 2 diabetes mellitus Diabetes type 2, controlled Surgical History Hx of breast reduction, elective History of cholecystectomy H/O esophagogastroduodenoscopy Hx of colonoscopy History of gastric bypass History of gastric bypass Hx of hand surgery Family History Family History Father CVD (cardiovascular disease) Mother Diabetes Social History Social History Household Members: Spouse Alcohol intake: never Patient Tobacco Use Status: Former Tobacco user Tobacco use type: Cigarette Advance Directives: No Advance Directives Information Provided: No Physical Exam Vital Signs: Vital Signs: Last Vital Signs Temp 98.1 F 01/25/25 12:05 Pulse 64 01/25/25 12:05 Resp 16 01/25/25 12:05 BP 137/52 L 01/25/25 12:05 Pulse Ox 96 01/25/25 12:05 O2 Del Method Room Air 01/25/25 12:05 BMI result Body Mass Index 31.1 GENERAL APPEARANCE: ?AxOx4, no acute distress. HEENT: ?NC, AT. MMM. EOMI, clear conjunctiva, oropharynx clear. NECK: ?Supple without lymphadenopathy.? No stiffness or restricted ROM. HEART:? Normal rate and regular rhythm, normal S1/S2, no m/r/g LUNGS:? Diminished breath sounds of bilateral lung bases EXTREMITIES: ?Without cyanosis, clubbing or edema. R knee with superficial abrasion, mild edema, no joint line tenderness, no ecchymosis or overlying skin changes, Full ROM but pain with flexion. NEUROLOGICAL: ?Grossly nonfocal. Alert and oriented, moving all 4 extremities. Observed to ambulate with normal gait. Skin: ?Warm and dry without any rash. Medical Decision Making Medical Decision Making MDM Narrative: 69 yo female with medical history of T2DM, CKD 3, HTN, paroxysmal AFib with Watchman, anxiety, depression, HLD, presents to the ED due to right knee pain after attempting to get on the bus, and her right knee giving out. When trying to question the patient about what happened today, patient is uninterested and telling her story, wants to leave without a proper workup. Patient has had a cough for approximately 1 month, I stated I was concerned about this would like to do further imaging, patient states she is not concerned about her cough at this time. Patient wants to leave AMA, I counseled patient that leaving against medical advice after a fall like this could cause , or long-term disability. Patient is understanding of the risks of leaving today. Differential Diagnosis Differential Diagnoses: The differential diagnosis associated with the presentation includes Fracture Knee dislocation Knee sprain Electrolyte abnormality Admission/Observation Consideration of admission/observation: Escalation of care including admission/observation considered External Record Review External record reviewed: Inpatient record, Office record and Outpatient record Discharge Plan Discharge Clinical Impression: Fall, URI (upper respiratory infection) Patient Disposition: Left Against Medical Advice Additional Instructions: You were evaluated in the ED today after having a fall and landing on the right knee. I do think you need further workup including blood work, urinalysis, and advanced imaging such as a CT head/brain, right knee x-ray, and chest x-ray to evaluate for any intracranial abnormalities, fracture of the right knee, and any abnormalities of your lungs causing your month long cough. You declined waiting for this workup. You are leaving against medical advice. By doing this your risk of and/or lifelong disability. Please return to the emergency department with any worsening/concerning/new symptoms. Prescriptions: No Action (DME) blood-glucose meter [FreeStyle Lite Meter] Kit See Rx Instructions miscellaneous .MEDSUPPLY Qty: 1 0RF Rx Instructions: Twice a day Digestive Advantage Probio-Pre 800 million cell tablet See Rx Instructions PO .COMPLEX 30 Days Qty: 30 3RF Rx Instructions: 1 tab po qd PO; atorvastatin 80 mg tablet 80 mg PO BEDTIME Qty: 30 11RF (DME) FreeStyle Lite Strips Strip See Rx Instructions .MEDSUPPLY Qty: 200 10RF Rx Instructions: 2times a day cholecalciferol (vitamin D3) 50 mcg (2,000 unit) capsule 50 mcg PO DAILY Qty: 90 4RF (DME) diabetic shoes See Rx Instructions .ROUTE .MEDSUPPLY Qty: 1 0RF Rx Instructions: extra depth orthopedic shoes ( 1 pair ) with customize heat molded multi density inner soles ( 3 pair) Dispense 1 Sig: As directed DX: And IDDM /polyneuropathy ( E11 0.42 ); hammertoe foot deformity ( M 20.41, and 20.42 ) pre ulcerative skin lesion ( L 85.1 ) Diagnosis ( E11 0.42 ) type 2 diabetes with polyneuropathy sennosides [senna] 8.6 mg tablet 17.2 mg PO BEDTIME PRN (Reason: for constipation) Qty: 60 0RF aspirin [Adult Aspirin Regimen] 81 mg tablet,delayed release (DR/EC) 81 mg PO DAILY Linzess 145 mcg capsule 145 mcg PO QAM Qty: 30 6RF dicyclomine 20 mg tablet 20 mg PO QID Qty: 360 1RF amlodipine 5 mg tablet 5 mg PO DAILY Qty: 90 3RF furosemide 20 mg tablet 20 mg PO DAILY Qty: 90 3RF Rx Instructions: take as needed for weight gain of 3 lbs over night until at baseline weight. rabeprazole 20 mg tablet,delayed release (DR/EC) 20 mg PO BID Qty: 180 2RF simethicone [Gas Relief (simethicone)] 125 mg tablet,chewable 125 mg PO BID-QID PRN (Reason: abdominal distention) Qty: 120 6RF flecainide 50 mg tablet 50 mg PO Q12H Qty: 180 3RF metoprolol succinate 25 mg tablet extended release 24 hr 25 mg PO DAILY Qty: 90 3RF metoclopramide HCl 5 mg tablet 5 mg PO QID Qty: 120 2RF (DME) FreeStyle Zunilda 3 Plus Sensor Device See Rx Instructions .ROUTE .MEDSUPPLY Qty: 2 11RF Rx Instructions: As directed for coninuous use change every 15 days (DME) FreeStyle Zunilda 3 [place] Misc See Rx Instructions .Route Qty: 1 0RF Rx Instructions: As directed insulin glargine [Lantus Solostar U-100 Insulin] 100 unit/mL (3 mL) insulin pen 15 unit subcut QAM Qty: 15 3RF cefuroxime axetil 250 mg tablet 250 mg PO BID 7 Days Qty: 14 0RF ferrous sulfate 325 mg (65 mg iron) tablet 325 mg PO BID calcium carbonate-vitamin D3 600 mg(1,500mg) -400 unit tablet 1 tab PO BID trazodone 100 mg tablet 100 mg PO BEDTIME PRN (Reason: Sleep) oxybutynin chloride 5 mg tablet 5 mg PO BID (DME) diabetic shoes See Rx Instructions .ROUTE .MEDSUPPLY Qty: 1 0RF Rx Instructions: extra depth orthopedic shoes ( 1 pair ) with customize heat molded multi density inner soles ( 3 pair) Dispense 1 Sig: As directed DX: And IDDM /polyneuropathy ( E11 0.42 ); hammertoe foot deformity ( M 20.41, and 20.42 ) pre ulcerative skin lesion ( L 85.1 ) Diagnosis ( E11 0.42 ) type 2 diabetes with polyneuropathy bupropion HCl [Wellbutrin XL] 150 mg tablet extended release 24 hr 150 mg PO QAM metformin 1,000 mg tablet 1,000 mg PO BID 90 Days Qty: 180 1RF escitalopram oxalate 20 mg tablet 20 mg PO DAILY meclizine 25 mg tablet 25 mg PO DAILY PRN (Reason: Dizziness) multivitamin Tablet 1 tab PO DAILY (DME) lancets [FreeStyle Lancets] 28 gauge misc See Rx Instructions .ROUTE .MEDSUPPLY Qty: 100 Rx Instructions: As directed famotidine [Pepcid] 40 mg tablet 40 mg PO BEDTIME 30 Days Qty: 30 6RF alum-mag hydroxide-simeth [Mylanta Maximum Strength] 400-400-40 mg/5 mL suspension 10 ml PO QID PRN (Reason: chest pain) Qty: 3000 3RF gabapentin 300 mg capsule 300 mg PO BEDTIME loperamide 2 mg capsule 2 mg PO Q6H PRN (DME) insulin syringe-needle U-100 1 mL 31 gauge x 5/16 syringe See Rx Instructions .ROUTE .MEDSUPPLY Qty: 100 8RF Rx Instructions: As directed twice daily glucose [Dex4 Glucose] 4 gram tablet,chewable 16 g PO Q15M MDD 16 tablets PRN (Reason: hypoglycemia) 30 Days Qty: 30 3RF Rx Instructions: every 15 minutes until symptoms of low blood sugar are controlled Stand Alone Forms: Against Medical Advice Interventions: ED Discharge Assessment Last Done: 01/25/25 12:05 Discharge Date/Time: 01/25/25 12:06 Print Language: Ghanaian
[2025-01-25 12:05] VITALS: BP 137/52; PULSE 64; RESP 16; TEMP 36.7; O2SAT 96
--- OUTSIDE RECORDS SUMMARY | 2025-01-25 13:55 | XMS_ITS | Encounter Summary ---
Author Organization [employer] Address [address] [place] [address] Care Team Providers Care Termite Exterminator Helper Name Role Phone Cherrie Gómez MD Primary Care Provide r Reason for Visit * Reason Comments Med Refill Encounter Details Date Type Department Care Team ([facility] st Contact Info) Description 07/08/2023 Refill [facility] [address] [place] [address] Cherrie Gómez MD [address] [place] [address] Social History Tobacco Use Types Packs/Day Years [...] Description 01/28/2025 3:30 PM EDT Office Visit [facility] [address] [place] [phone] Cherrie Gómez MD [address] [place] [phone] documented as of this encounter Visit Diagnoses Not on filedocumented in this encounter Additional Health Concerns Assessment Noted Time PHQ-9 Depression Total Score: 20 023 2:53 PM EST documented as of this encounter Care Teams Termite Exterminator Helper Relationship Specialty Start Date End Date Cherrie Gómez MD [address] [place] [phone] PCP - General Family Medicine 11/05/19 [facility] 08/06/19 documented as of this encounter
--- OUTSIDE RECORDS SUMMARY | 2025-01-25 13:55 | XMS_ITS | Clinical Summary ---
Author Organization [address] [place] [address] Address [address] [place] [address] Phone Care Team Providers Care Duck Operator Name Role Phone Cherrie Gómez MD Primary Care Provide r Surgical History Surgery Date Site/Laterality Comments GASTRIC BYPASS PROCEDURE: GASTRIC BYPASS FOR OBESIT ABDOMINAL SURGERY PROCEDURE: HISTORICAL ABDOMINAL SURGERY BREAST REDUCTION PROCEDURE: [facility] BREAST REDUCTION CHOLECYSTECTOMY PROCEDURE: [facility] CHOLECYSTECTOMY FOOT SURGERY PROCEDURE: HISTORICAL FOOT SURGERY; COMMENT: right foot,little toe Medical History Medical History Date Comments Diabetes mellitus ([facility] V 24, CMS/HCC V28) DX:Diabetes mellitus (HCC) [...] Health Screening 04/22/2022 Falls Risk Assessment 2022 Depression Screening 05/20/2024 COVID-19 Vaccine ( - 2023-2 5 season) 2025 Influenza Vaccine (#1) 2025 RSV Immunization Adult [...] patient's age to complete this topic Insurance [facility] MEDICARE Member Subscriber Plan / Payer (Ef fective 2024-Present) Name:Dana Winter Relation to Subscriber:Self Name:Dana Winter Payer ID:[id number] Group ID:[id number] Type:Not on file Address: [address] [place] [id number] MEDICAID - [place] Care Teams Duck Operator Relationship Specialty Start Date End Date Cherrie Gómez MD [address] [place] [phone] PCP - General Internal Medicine 08/04/24
--- OUTSIDE RECORDS SUMMARY | 2025-01-25 13:55 | XMS_ITS | Clinical Summary ---
Author Organization [facility] Address [address] [place] [phone] Phone Care Team Providers Care Wood Box Maker Name Role Phone Cherrie Garcia MD Primary Care Provider Allergies No known [...] Active ferrous sulfate 325 mg (65 mg tununak iron) tablet Take 325 mg by mouth [...] (ONE-TIME) 2022 MAMMOGRAM 08/24/2023 08/23/2021, 06/11/2019, 06/06/2018 INFLUENZA VACCINE (#1) 2024 COVID-19 VACCINE (1 - 2023-2 5 season) 2025 Adult Td,Tdap Booster 01/08/2026 01/09/2016 SCREENING FOR [...] file Insurance MEDICARE PART A & B [facility] MEDICARE REPLACEMENT MEDICARE PART A & B Member Subscriber Plan / Payer (Ef fective 2023-Present) Name:Dana Winter Member ID:[id number] Relation to Subscriber:Self Name:Dana Winter Subscriber ID:[id number] Payer ID:[id number] Group ID:Not on file Type:Medicare Address: [employer] [address] MEDICARE REPLACEMENT MEDICARE PART A & B MEDICARE REPLACEMENT MEDICARE PART A & [place] [address] MEDICARE REPLACEMENT [place] [id number] MEDICARE PART A & B [facility] MEDICARE REPLACEMENT MEDICARE PART A & B [facility] MEDICARE REPLACEMENT [place] [id number] Care Teams Wood Box Maker Relationship Specialty Start Date End Date Cherrie Garcia MD [address] [place] [phone] PCP - General Internal Medicine 08/01/23 Additional Source Comments The information contained in this document represents components of the legal health record. It is not the complete legal health record.[facility]
--- OUTSIDE RECORDS SUMMARY | 2025-01-25 13:55 | XMS_ITS | Encounter Summary ---
Author Organization [facility] Address [address] [place] [address] Encounters * CPT with Medical [facility] at [facility] on 2024-12-21 { reasonForRequest : Patient fell last night w/ a head injury, or possibly had a seizure, confused. Hit back of head yesterday, just wants pt checked out. , patientReports": , denies :[ Falls with head strike and LOC , Falls from a standing position, no LOC, patient is amnestic to the event , Falls with isolated injury and deformity noted to limb , Falls with inability to move post fall , Cool extremities after fall or injury , Weakness with fall, able to move all extremities ],"chiefComplaints : Falls , pmh : Diabetes Mellitus Type 2 , allergies : No Known Drug Allergies , otherAllergies : , marcin inAssessment : , visitOutcome : , additionalComments : 69 y.o female complains of Falls\n\nCaregiver reports the pt had a fall last night - Witnessed by boyfriend - \ Shaky and was confused before falling.\ - \ Hit her head in the b ack.\ Unknown LOC - Fluctuating blood glucose levels\n\nDenies laceration - Denies any other injuries at this time - Caregiver reports the [facility] at this time and was assessed by the staff nurse. Visit requested after 4 pm.\n\nNot on blood thinners\n\nWellness check requested \n\nEmergency treatment declined\n\n\nI provided information on the mobile health provider response time and advised the patient and/or caregiver to monitor reported signs and symptoms. I discussedthe warning signs of when to seek emergency care. } Was dispatched for a 69 Y/O female for an eval for multiple falls. [facility] PT was found sitting at the kitchen table. PT is primarily Albanian speaking only. PT daughter translated for [facility]. PT family reported yesterday the PT blood sugar dropped and the PT became dizzy and fell striking her head. Today the daughter reported the PT sugar dropped to 58 prior to [facility] arrival but was able to get it to 118 by giving her food. PT vitals were obtained and an assessment was performed. PT HEENT, JVD, pupils, and skin were normal. PT lungs were clear with bilateral chest rise and fall. PT ABD area was soft and nontender. PT has normal CSMs in all her extremities. PT head neck and back were palpated noting no step off or deformities. PT daughter expressed concern about the PTs well being and feels the PT is starting to have failure to thrive. Daughter also reported the PT has made multiple SI remarks with a plan in the last week to her. [facility] was contacted, [facility] recommended sending the PT to the ED for the fall eval, and [facility] eval. 911 was contacted [facility] arrived and transported the [facility]. [facility] crew cleared IV_(FLUIDS_AND/OR_MEDICATION), MEDICATION_IM, EKG, GLUCOSE, ORTHOSTATIC_VITAL_SIGNS Written by Medical [facility] on 2024-12-21
--- OUTSIDE RECORDS SUMMARY | 2025-01-25 13:55 | XMS_ITS | Encounter Summary ---
Author Organization [employer] Address [address] [place] [address] Care Team Providers Care Tribal Delegate Name Role Phone Cherrie Gómez MD Primary Care Provide r Encounter Details Date Type Department Care Team (Latest Contact Info) Description 08/23/2021 Abstract [facility] CONVERSIONS Dental, Provider, DDS Social History [...] Description 01/28/2025 3:30 PM EDT Office Visit [facility] [address] [place] [address] Cherrie Gómez MD [address] [place] [address] documented as of this encounter Visit Diagnoses Not on filedocumented in this encounter Care Teams Tribal Delegate Relationship Specialty Start Date End Date Cherrie Gómez MD [address] [place] [address] PCP - General Family Medicine 11/05/19 [facility] 08/06/19 documented as of this encounter
--- OUTSIDE RECORDS SUMMARY | 2025-01-25 13:55 | XMS_ITS | Encounter Summary ---
Author Organization [employer] Address [address] [place] [address] Care Team Providers Care Support Staff Name Role Phone Cherrie Gómez MD Primary Care Provide r Encounter Details Date Type Department Care Team ([facility] Contact Info) Description 03/07/2023 Telephone [facility] [address] [place] [address] Cherrie Gómez MD [address] [place], [place] [phone] Social History Tobacco Use Types Packs/Day Years [...] Description 01/28/2025 3:30 PM EDT Office Visit [facility] [address] [place] [phone] Cherrie Gómez MD [address] [place] [phone] documented as of this encounter Visit Diagnoses Not on filedocumented in this encounter Additional Health Concerns Assessment Noted Time PHQ-9 Depression Total Score: 16 023 11:35 AM EDT documented as of this encounter Care Teams Support Staff Relationship Specialty Start Date End Date Cherrie Gómez MD [address] [place] [phone] PCP - General Family Medicine 11/05/19 [facility] 08/06/19 documented as of this encounter
--- OUTSIDE RECORDS SUMMARY | 2025-01-25 13:55 | XMS_ITS | Encounter Summary ---
Author Organization [employer] Address [address] [place] [address] Care Team Providers Care Lactation Nurse Name Role Phone Cherrie Gómez MD Primary Care Provide r Encounter Details Date Type Department Care Team ([facility] Contact Info) Description 04/13/2024 Telephone [facility] [address] [place] [address] Cherrie Gómez MD [address] [place], [place] [phone] Social History Tobacco Use Types Packs/Day Years [...] Description 01/28/2025 3:30 PM EDT Office Visit [facility] [address] [place] [phone] Cherrie Gómez MD [address] [place] [address] documented as of this encounter Visit Diagnoses Not on filedocumented in this encounter Additional Health Concerns Assessment Noted Time PHQ-9 Depression Total Score: 20 023 2:53 PM EST documented as of this encounter Care Teams Lactation Nurse Relationship Specialty Start Date End Date Cherrie Gómez MD [address] [place] [address] [phone] PCP - General Family Medicine 11/05/19 [facility] 08/06/19 documented as of this encounter
--- OUTSIDE RECORDS SUMMARY | 2025-01-25 13:55 | XMS_ITS | Encounter Summary ---
Author Organization [employer] Address [address] [place] [address] Care Team Providers Care Stationary Engineer Apprentice Name Role Phone Cherrie Gómez MD Primary Care Provide r Reason for Visit * Reason Comments Med Refill Encounter Details Date Type Department Care Team ([facility] st Contact Info) Description 05/17/2023 Refill [facility] [address] [place] [address] Cherrie Gómez MD [address] [place] [address] Type 2 diabetes mellitus without complications (CMS/HCC) [...] Description 01/28/2025 3:30 PM EDT Office Visit [facility] [address] [place] [address] Cherrie Gómez MD [address] [place] [address] documented as of this encounter Visit Diagnoses Diagnosis Type 2 diabetes mellitus without complications (CMS/HCC) documented in this encounter Additional Health Concerns Assessment Noted Time PHQ-9 Depression Total Score: 20 023 2:53 PM EST documented as of this encounter Care Teams Stationary Engineer Apprentice Relationship Specialty Start Date End Date Cherrie Gómez MD [address] [place] [address] PCP - General Family Medicine 11/05/19 [facility] 08/06/19 documented as of this encounter
--- OUTSIDE RECORDS SUMMARY | 2025-01-25 13:55 | XMS_ITS | Encounter Summary ---
Author Organization [employer] Address [address] [place] [address] Care Team Providers Care Documentation Consultant Name Role Phone Cherrie Gómez MD Primary Care Provide r Encounter Details Date Type Department Care Team ([facility] Contact Info) Description 02/27/2023 Abstract [facility] [address] [place] [address] Cherrie Gómez MD [address] [place], [place] [phone] Social History Tobacco Use Types Packs/Day Years [...] Description 01/28/2025 3:30 PM EDT Office Visit [facility] [address] [place] [phone] Cherrie Gómez MD [address] [place] [phone] documented as of this encounter Visit Diagnoses Not on filedocumented in this encounter Additional Health Concerns Assessment Noted Time PHQ-9 Depression Total Score: 16 023 11:35 AM EDT documented as of this encounter Care Teams Documentation Consultant Relationship Specialty Start Date End Date Cherrie Gómez MD [address] [place] [address] [phone] PCP - General Family Medicine 11/05/19 [facility] 08/06/19 documented as of this encounter
--- OUTSIDE RECORDS SUMMARY | 2025-01-25 13:55 | XMS_ITS | Clinical Summary ---
Author Organization [employer] Address [address] [facility] 7[address] [place] [address] Care Team Providers Care Supervisor Paint Name Role Phone Cherrie Gómez MD Primary Care Provide r Allergies Active Allergy Reactions Criticality Noted Date Comments Empagliflozin High 12/03/2023 Other Reaction(s): uti Other Reaction(s): Unknown Outside Source Comment: Other Reaction(s): uti Oxycodone-Acetaminophen Itching 06/09/2012 Medications amLODIPine (Norvasc) 5 MG tablet 11/04/19 23 Active flecainide (Tambocor) 50 MG tablet Take by mouth at noon and in the evening. Active gabapentin (Neurontin) 300 MG capsule Take 300 mg by mouth at bedtime. Active metoprolol succinate XL (Toprol-XL) 25 MG 24 hr tablet Take by mouth. Do not crush or chew. Active simethicone (Mylicon) 125 MG chewable tablet Chew in the morning and at noon and in the evening. Active traZODone (Desyrel) 100 MG tablet Take 100 mg by mouth at bedtime. Active aspirin 81 MG EC tablet Take 81 mg by mouth Once per day. Active Multiple Vitamin (multivitamin) capsule Take 1 capsule by mouth Once per day. Active Lancets misc Use to test blood sugar 3 times daily 100 each 10/08/19 24 Active Alcohol Swabs (CVS Prep) 70 % pads USE TO TEST BLOOD SUGAR 3 TIMES DAILY 100 each 5 02/07/20 24 Active insulin pen needle (BD Pen [...] unspecified whether stage 3a or 3b CKD ([facility]) Inject 20 Units under the skin in the morning. 15 mL 1 05/22/19 25 Active cholecalciferol (D3) 50 MCG (2000 UT) tablet Take 2,000 Units by mouth Once per day. TOME NEELAM TABLETA POR VIA ORAL EN LA MANANA 90 tablet 1 09/02/19 25 Active Calcium Carb-Cholecalci ferol 600-10 MG-MCG tablet Take 1 tablet by mouth 2 times daily. TAKE 1 TABLET BY MOUTH TWICE A DAY 180 tablet 1 09/09/19 25 Active FREESTYLE LITE test stripIndication s:Type 2 diabetes mellitus with stage 3 chronic kidney disease, without long-term current use of insulin, unspecified whether stage 3a or 3b CKD (CMS/HCC) USE TO TEST BLOOD SUGAR 3 TIMES DAILY 100 strip 11 10/30/19 25 Active ferrous sulfate 325 (65 Fe) MG tabletIndicatio ns:Anemia, unspecified type TAKE 1 TABLET BY MOUTH EVERY 12 HOURS 180 tablet 1 12/04/19 25 Active meclizine (Antivert) 25 MG tablet TAKE 1 TABLET BY MOUTH IN THE MORNING, AT NOON, AND BEDTIME NEEDED FOR DIZZINESS 30 tablet 1 12/05/19 25 Active metFORMIN (Glucophage) 1000 MG tablet TOME NEELAM TABLETA (1000 MG) POR VIA ORAL CON EL DESAYUNO AND WITH MARCUS 180 tablet 1 12/12/19 25 Active oxybutynin (Ditropan) 5 MG tabletIndicatio ns:Overactive bladder TAKE 1 TABLET BY MOUTH TWICE A DAY 180 tablet 1 01/05/20 25 Active atorvastatin (Lipitor) 80 MG tabletIndicatio ns:Hyperlipidem ia associated with type 2 diabetes mellitus (CMS/HCC) TAKE 1 TABLET BY MOUTH ONCE DAILY AT BEDTIME 90 tablet 3 01/15/20 25 Active atorvastatin (Lipitor) 80 MG tabletIndicatio ns:Hyperlipidem ia associated with type 2 diabetes mellitus (CMS/HCC) TOME NEELAM TABLETA POR VIA ORAL ONCE DAILY AT BEDTIME 90 tablet 3 12/26/19 24 025 Discontinued oxybutynin (Ditropan) 5 MG tabletIndicatio ns:Overactive bladder TOME 1 TABLETA POR VIA ORAL DOS VECES AL ARGELIA 180 tablet 1 04/13/20 24 025 Discontinued Active Problems Problem Noted Date Diagnosed Date Recurrent urinary tract infection 12/31/2024 Assessment & Plan (12/31/2024 12:51 PM EDT): Daughter and patient tells me that she has been having recurrent UTIs and they do not know why counseling about not holding the urine and drinking enough water was done today. I decided to refer her to urology Failure to thrive in adult 12/31/2024 Assessment & Plan (12/31/2024 12:57 PM EDT): It seems patient is now back to her baseline Continue with [facility]NA services for medication administration Continue to follow-up with the specialist cardiology, nephrology she is waiting for appointment with neurology and urologist Depression with anxiety 12/31/2024 Assessment & Plan (12/31/2024 12:57 PM EDT): Continue to follow-up with therapist and psychiatrist Abdominal bloating 11/17/2024 Abnormal EKG 11/17/2024 Acute UTI 11/17/2024 Anxiety 11/17/2024 Atypical chest pain 11/17/2024 Burning with urination 11/17/2024 Celiac disease 11/17/2024 Overview (11/17/2024): with acquired absence of specified part of digestive tract (hx of cholecystectomy, gastric bypass surgery) Chronotropic incompetence 11/17/2024 Diabetic polyneuropathy asso ciated with type 2 diabetes mellitus 11/17/2024 Diabetic retinopathy associa radha with type 2 diabetes mellitus 11/17/2024 Diastolic dysfunction 11/17/2024 Dyslipidemia 11/17/2024 Dysphagia 11/17/2024 Overview (11/17/2024): oropharyngeal, seeing ENT no known neuro conditions no cause found on EGD Gastroparesis due to secondary diabetes 11/18/19 25 History of gastric bypass 11/17/2024 Orthostatic hypotension 11/17/2024 Non-toxic multinodular goiter 11/17/2024 Pacemaker 11/17/2024 Presence of Watchman left atrial appendage closu re device 11/17/2024 Periumbilical abdominal pain 11/17/2024 Syncope and collapse 11/17/2024 Urinary incontinence 11/17/2024 S/P placement of cardiac pacemaker 04/23/2024 Assessment & Plan (04/23/2024 3:03 PM EST): Patient has being stable continue to follow with cardiology Open fracture of tooth 02/05/2024 Retained dental root 01/03/2024 Sick sinus syndrome 12/23/2023 Assessment & Plan (12/31/2024 12:53 PM EDT): Patient is status post pacemaker she continues to follow with cardiology Cognitive impairment 12/16/2023 Assessment & Plan (05/21/2024 [...] diastolic heart failure 10/25/2023 Assessment & Plan (12/31/2024 12:53 PM EDT): Continue to follow-up with cardiology Assessment & Plan (10/25/2023 1:53 PM EDT): [...] use of insulin 07/17/2023 Assessment & Plan (12/31/2024 12:55 PM EDT): Diabetes is: almost at goal - Lab Results Component Value Date HGBA1C 6.8 (A) 11/06/2024 HGBA1C 9.6 (A) 07/14/2024 HGBA1C 9.6 (A) 10/25/2023 - Lab Results Component Value Date MICROALBUR 9.0 10/18/2023 CREATININE 1.15 05/06/2024 -Changes: None - Diabetic eye exam: Up-to-date - Diabetic foot exam: Pending - Continue lifestyle modifications - Continue current medications - Follow up: 3 months Assessment & Plan (07/14/2024 5:08 PM EST): [...] Patient is now being manage by endocrinology jardiance was DC she is just on insulin now [...] 12 units. Pt's daughter will contact her Judo Teacher. Cannot go higher in the Jardiance pt [...] to be done by endocrinology, today glucose [facility] I ordered at office humalog 10U - [...] Assessment & Plan (06/17/2023 4:40 PM EST): marketing proposal specialist referral Left arm pain 05/02/2023 Encounter [...] seems most likely vertigo - following with welfare eligibility interviewer ,From cards records -pt had a + [...] AST 34,ALT 59 -EKG 11/2022 NSR, normal [place] interval, HR 56x', TWI in lead III [...] need to have brain image -trial w mecdanie prn ,will hold steroids not convince symptoms [...] falls and episodes of dizziness following with welfare eligibility interviewer From cards records -pt had a + [...] Today is 131 -EKG today NSR, normal [place] interval, HR 56x', TWI in lead III [...] slowly -gave today written prescription to nurse stff x RW to avoid falls -advised x hydration -px compression stockings rec in the pat by cards for her orthostasis but pt not using -gave wristten Px to nurse staff -advised pt to f w her welfare eligibility interviewer for ongoing symptoms -I tried calling today pt's welfare eligibility interviewer but was not able to reach -will [...] -referred already to neurologist -seen by Dr Oliva -I tried calling his office today but [...] toe 10/17/2022 Complete edentulism, class III 08/17/2022 Neuropathy 08/09/2021 Low blood pressure 08/26/2020 Paroxysmal atrial fibrillation 07/22/2018 Atrial flutter 02/27/2018 [...] Encounters Date Type Department Care Team Description 01/13/2025 Refill [facility] [address] [place] [phone] Cherrie Gómez MD Hyperlipidemia associated with type 2 diabetes mellitus (CMS/HCC) 01/04/2025 Orders Only GENERIC EXTERNAL DATA DEPARTMENT Provider, Generic External Data 01/02/2025 Refill [facility] [address] [place] [address] Cherrie Gómez MD Overactive bladder 12/31/2024 11:15 AM EDT Office Visit [facility] [address] [place] [address] Cherrie Gómez MD Failure to thrive in adult (Primary Dx); Type 2 diabetes mellitus with stage 3 chronic kidney disease, without long-term current use of insulin, unspecified whether stage 3a or 3b CKD (CMS/HCC); Recurrent urinary tract infection; Chronic diastolic heart failure (CMS/HCC); Sick sinus syndrome (CMS/[facility]); Depression with anxiety 12/31/2024 Travel 12/29/2024 Telephone [facility] [address] [place] [address] Cherrie Gómez MD Chart Prep 12/23/2024 Telephone [facility] [address] [place] [address] Cherrie Gómez MD FYI 12/23/2024 Telephone [facility] [address] [place] [address] Cherrie Gómez MD Call Back Request 12/22/2024 Telephone [facility] [address] [place] [address] Cherrie Gómez MD ER Follow-up 12/22/2024 Telephone [facility] [address] [place] [address] Cherrie Gómez MD FYI 12/21/2024 Orders Only [facility] [address] [place] [address] Cherrie Gómez MD 12/21/2024 Telephone [facility] [address] [place] [address] Cherrie Gómez MD Call Back Request 12/11/2024 Refill [facility] [address] [place] [address] Cherrie Gómez MD 12/04/2024 Refill [facility] [address] [place] [address] Cherrie Gómez MD 12/03/2024 Refill [facility] [address] [place] [address] Cherrie Gómez MD Anemia, unspecified type 11/30/2024 Telephone [facility] [address] [place] [address] Cherrie Gómez MD Medication Question 11/17/2024 9:30 AM EDT Office Visit [facility] [address] [place] [address] Farheen Rojas, DDS Dental caries (Primary Dx) 11/09/[address] [address] Audrey Oliveira RN Results 11/08/2024 Results Follow-Up [address] [address] Martha Londono ANP POCT Glucose, POCT HGB A1C, Culture, Urine, Routine 11/06/2024 1:15 PM EDT Office Visit [address] [address] Martha Londono ANP Acute cystitis without hematuria (Primary Dx); Type 2 diabetes mellitus with stage 3 chronic kidney disease, without long-term current use of insulin, unspecified whether stage 3a or 3b CKD ([facility]/HCC); Stage 3b chronic kidney disease ([facility]); UTI due to Klebsiella species 11/06/2024 Travel 11/04/[address] [address] Cherrie Gómez MD Chart Prep 10/29/[address] [address] Nancy Denny DO Type 2 diabetes mellitus with stage 3 chronic kidney disease, without long-term current use of insulin, unspecified whether stage 3a or 3b CKD ([facility]/HCC) 10/27/[address] [address] Cherrie Gómez MD ER Follow-up 10/26/[address] [address] Cherrie Gómez MD SEP RECALL from Last 3 Months Immunizations Immunization Administration [...] Every Day Cigarettes Last attempted to quit: 2017 Passive Smoke Exposure: Current Smokeless Tobacco: Never Tobacco Cessation:Ready to Q [...] the past 12 months, has t he [employer], gas, oil or water company threatened to [...] Sign Reading Time Taken Comments Blood Pressure 119/62 12/31/2024 11:16 AM EDT Pulse 68 12/31/2024 11:16 AM EDT Temperature 36.7 C (98 F) 12/31/2024 11:16 AM EDT Respiratory Rate 16 12/31/2024 11:16 AM EDT Oxygen Saturation 97% 05/18/2024 3:35 PM EST Inhaled Oxygen Concentration - - Weight 79.5 kg (175 lb 3.2 oz) 12/31/2024 11:16 AM EDT Height 157.5 cm (5' 2 ) 12/31/2024 11:16 AM EDT Body Mass Index 32.04 12/31/2024 11:16 AM EDT Plan of Treatment Upcoming Encounters Date Type Department Care Team (Late st Contact Info) Description 01/28/2025 3:30 PM EDT Office Visit [facility] [address] [place] [address] Cherrie Gómez MD [address] [place] [address] Health Maintenance Due Date Last Done Comments [...] Exam 10/25/2023 04/24/2023 Dental Prophylaxis 12/13/2023 06/13/2023 Diabetes: Foot Exam 09/15/2024 09/16/2023, 09/16/2023, 09/16/2023, Additional history exists Lipid Panel 10/17/2024 10/18/2023 COVID-19 Vaccine ( season) 2025 06/18/2023, 07/02/2022, 10/17/2021, Additional history exists Influenza Vaccine (#1) 2025 , 02/15/2022, 03/16/2021, Additional history exists Diabetes: Hemoglobin A1C 05/08/2025 025, 07/14/2024, 10/25/2023, Additional history exists SDOH Screening 06/30/2025 06/30/2024 Depression Screening 07/14/2025 07/14/2024, 07/14/19 Tobacco Screening 12/31/2025 12/31/2024 DTaP/Tdap/Td Vaccines (2 - Td or Tdap) [...] Procedure Name Priority Date/Time Associated Diagnosis Comments GLUCOSE, WHOLE BLOOD Routine 01/04/2025 3:39 PM EDT POCT GLUCOSE Routine 12/31/2024 11:50 AM EDT Type 2 diabetes mellitus with stage 3 chronic kidney disease, without long-term current use of insulin, unspecified whether stage 3a or 3b CKD (CMS/HCC) CASE PRESENTATION, DETAILED AND EXTENSIVE TREATMENT PLANNING Routine 11/17/2024 9:30 AM EDT Dental caries 21 MBB(V) RESIN-BASED COMPOSITE - 2 SURF, POSTERIOR Routine 11/17/2024 9:30 AM EDT Dental caries 20 DBB(V) RESIN-BASED COMPOSITE - 2 SURF, POSTERIOR Routine 11/17/2024 9:30 AM EDT Dental caries 22 MIFL RESIN-BASED COMPOSITE - 4 OR MORE SURFACES (ANTERIOR) Routine 11/17/2024 9:30 AM EDT Dental caries CULTURE, URINE, ROUTINE Routine 11/06/2024 2:13 PM EDT Acute cystitis without hematuria POCT GLYCATED HEMOGLOBIN, TOTAL Routine 11/06/2024 1:37 PM EDT Type 2 diabetes mellitus with stage 3 chronic kidney disease, without long-term current use of insulin, unspecified whether stage 3a or 3b CKD (CMS/HCC) POCT GLUCOSE Routine 11/06/2024 1:37 PM EDT Type 2 diabetes mellitus with stage 3 chronic kidney disease, without long-term current use of insulin, unspecified whether stage 3a or 3b CKD (CMS/HCC) PANORAMIC RADIOGRAPHIC IMAGE Routine 02/05/2024 8:00 AM [...] Recently Relevant to Health Maintenance Results * Glucose, Whole Blood (01/04/2025 3:39 PM EDT) Glucose, Whole Blood 86 60 - 115 mg/dL [facility] Comment:METER #: [id number] Testing performed in the Endocrinology Department [address] , [address], [facility]. 01/04/2025 3:39 PM EDT 01/04/2025 3:44 PM EDT Generic External Data Provider LAB BLOOD ORDERAB LES Final Result [facility] [address] [place] [phone] * POCT Glucose (12/31/2024 11:50 AM EDT) Only the most recent of2 resultswithin the time period is included. Glucose Blood, POC 75 60 - 200 mg/dL QC Media Lot # [id number] Lot# Expiration Date [id number] Blood Capillary blood specimen / Unknown 12/31/2024 11:50 AM EDT Cherrie Paredes MD POINT OF CARE TEST ENTER/EDIT ORDERABLES Edited Result - Final * Culture, Urine, Routine (11/06/2024 2:13 PM EDT) Urine Urine specimen obtained by clean catch procedure / Unknown 11/06/2024 2:13 PM EDT 11/06/2024 4:30 PM EDT Comment:UACC Narrative [facility] - 11/08/2024 8:05 AM EDT Klebsiella pneumoniae Quant > 100,000 cfu/mL Klebsiella pneumoniae: Ampicillin 16(R) Klebsiella pneumoniae: Cefazolin 2(S) Klebsiella pneumoniae: Cefepime <=0.12(S) Klebsiella pneumoniae: Ceftriaxone <=0.25(S) Klebsiella pneumoniae: Ciprofloxacin <=0.06(S) Klebsiella pneumoniae: Gentamicin <=1(S) Klebsiella pneumoniae: Nitrofurantoin 128(R) Klebsiella pneumoniae: Trimethoprim/Sulfamethoxazole <=20(S) Specimen Source: Urine clean catch Martha SMITH LAB MICROBIOLOGY - GENERAL ORDER STEVEN Final Result [facility] [address] [place] [address] [phone] * (ABNORMAL) POCT HGB A1C (11/06/2024 1:37 PM EDT) Hemoglobin A1C 6.8(A) 4.0 - 6.0 % QC Media Lot # [id number] Lot# Expiration Date ,[id number] Blood 11/06/2024 1:37 PM EDT Martha SMITH POINT OF CARE TEST ENTER/EDIT OR DERABLES Final Result * Lipid Panel, Standard (10/18/2023 11:32 AM EDT) Triglycerides 84 <150 mg/dL [facility] Comment:Desirable Triglyceri de: less than 150 mg/dLBorderline High Triglyceride 150-199 mg/dLHigh Triglyceride: 200-499 mg/dLVery High Triglyceride: greater than or equal to 5OO mg/dL Cholesterol 101 <200 mg/dL [facility] Comment:Desirable Cholestero l: less than 200 mg/dLBorderline High Cholesterol: 200-239 mg/dLHigh Cholesterol: greater than 239 mg/dL LDL Cholesterol Calculated 35 <100 mg/dL [facility] Comment:Desirable LDL: less than 100 mg/dLNear Optimal/Above Optimal LDL: 110- 129 mg/dLBorderline High LDL: 130-159 mg/dLHigh LDL: 160-189 mg/dLVery High LDL: greater than or equal to 190 mg/dL HDL Cholesterol 50 >40 mg/dL [facility] Comment:Desirable HDL: great er than 40 mg/dL Note: This HDL assay may give artificially low results in patients with liver disease. 10/18/2023 11:3 2 AM EDT 10/18/2023 11:32 AM EDT us Generic External Data Provider LAB BLOOD ORDERAB LES Final Result Performing Organization Address [facility]/ZIP Co de Phone Number [facility] [address] [place] [phone] * Hepatitis C Antibody with Reflex to HCV, RNA, Quantitative, Real-Time PCR (02/18/2023 4:28 PM EDT) Pathologist [facility] Hepatitis C Antibody Nonreactive Nonreactive [facility] Comment:Antibodies to HCV no t detected; does not exclude early acuteHCV infection. Blood Venous blood specimen / Unknown 02/18/2023 4:28 PM EDT 02/18/2023 5:32 PM EDT us Cherrie Arzate MD LAB BLOOD ORDERAB LES Final Result Performing Organization Address [facility] Co de Phone Number [facility] [address] [place] [phone] * THINPREP TIS PAP AND HPV mRNA E6/E7 WITH REFLEX TO HPV 16,18/45 (09/14/2021 10:22 AM EDT) Clinical Information: None given [facility] COMMENT SEE COMMENT [facility] Comment: EXPLANATORY NOTE: The Pap is a screening test for cervical cancer. It is not a diagnostic test and is subject to false negative and false positive results. It is most reliable when a satisfactory sample, regularly obtained, is submitted with relevant clinical findings and history, and when the Pap result is evaluated along with historic and current clinical information. COMMENT: This Pap test has been evaluated with computer assisted technology. [facility] Communications Professor: SEE COMMENT [facility] Comment: RXB, CT(ASCP) CT screening location: [place] [address] HPV nRNA E6/E7 Not Detected Not Detected [facility] Comment: Methodology: Certified Alcohol Counselor-Mediated Amplification This assay detects E6/E7 viral messenger RNA (mRNA) from 14 high-risk HPV types (16,18,31,33,35,39,45,51,52,56,58,59,66,68). The analytical performance characteristics of this assay have been determined by [employer]. The modifications have not been cleared or approved by the FDA. This assay has been validated pursuant to the CLIA regulations and is used for clinical purposes. For additional information, please refer to http://education.[employer]/faq/GZZ422i1 (This link if provided for information/ educational purposes only.) Interpretation/Re sult: Negative for intraepithelial lesion or malignancy. [facility] LMP: NONE [facility]IVEN [facility] Prev. BX: NONE [facility]IV[facility] Prev. PAP: NONE [facility]IV[facility] SOURCE: None given [facility] Statement Of Adequacy: SEE COMMENT [facility] Comment: Satisfactory for evaluation. Endocervical/transformation zone component present. 09/14/2021 10:2 2 AM EDT us Cherrie Paredes MD LAB PATHOLOGY ORDERAB LES Final Result [facility] [address] [place] [address], * Mammography Report 1 (08/23/2021 3:30 PM EDT) Anatomical Region Laterality Modality Breast Bilateral Mammography 08/23/2021 3:30 PM EDT Narrative 08/24/2021 4:14 PM EDT Refer to the Notes tab for result details [facility] Procedure: Mammography Report 1 Procedure Note Provider, MD Jaylene - 08/12/2022 Refer to the Notes tab for result details [facility] Procedure: Mammography Report 1 Cherrie Paredes MD IMG BI PROCEDURES Fin al Result from Last 3 Months or Most Recently Relevant to Health Maintenance Insurance [facility] [address] STANDARD [facility] PRO [facility] LONG-TERM OPTIONS (HMO D-SNP) DENTAL - [facility] Care Teams Supervisor Paint Relationship Specialty Start Date End Date Cherrie Gómez MD [address] [place] [phone] PCP - General Family Medicine 11/05/19 [facility] 08/06/19
--- OUTSIDE RECORDS SUMMARY | 2025-01-25 13:55 | XMS_ITS | Encounter Summary ---
Author Organization [employer] Address [address] [place] [address] [address] [place] [address] Care Team Providers Care Jointer Operator Name Role Phone Cherrie Gómez MD Primary Care Provide r Encounter Details Date Type Department Care Team ([facility] Contact Info) Description 10/17/2022 [facility] Health Information Management [address] [place] [address] Cherrie Gómez MD [address] [place] [address] Social History Tobacco Use Types Packs/Day Years [...] Description 01/28/2025 3:30 PM EDT Office Visit [facility] [address] [place] [address] Cherrie Gómez MD [address] [place] [address] documented as of this encounter Visit Diagnoses Not on filedocumented in this encounter Care Teams Jointer Operator Relationship Specialty Start Date End Date Cherrie Gómez MD [address] [place] [phone] PCP - General Family Medicine 11/05/19 [facility] 08/06/19 documented as of this encounter
--- OUTSIDE RECORDS SUMMARY | 2025-01-25 13:55 | XMS_ITS | Encounter Summary ---
Author Organization [employer] Address [address] [place] [address] Care Team Providers Care Manufacturing Job Titles Name Role Phone Cherrie Gómez MD Primary Care Provide r Reason for Visit * Reason Onset Date Comments Med Refill 06/17/2023 Encounter Details Date Type Department Care Team ([facility] Contact Info) Description 06/17/2023 Telephone [facility] [address] [place] [address] Cherrie Gómez MD [address] [place] [address] Med Refill Social History Tobacco Use Types [...] 25 MG tablet To be sent to: [facility]/pharmacy #[id number] [place] [address] - [address] [place] [phone] documented in this encounter Plan of Treatment Upcoming Encounters Date Type Department Care Team (Late st Contact Info) Description 01/28/2025 3:30 PM EDT Office Visit [facility] [address] [place], [place] [phone] Cherrie Gómez MD [address] [place], [place] [phone] documented as of this encounter Visit Diagnoses Not on filedocumented in this encounter Additional Health Concerns Assessment Noted Time PHQ-9 Depression Total Score: 20 023 2:53 PM EST documented as of this encounter Care Teams Manufacturing Job Titles Relationship Specialty Start Date End Date Cherrie Gómez MD [address] [place] [address] PCP - General Family Medicine 11/05/19 [facility] 08/06/19 documented as of this encounter
--- OUTSIDE RECORDS SUMMARY | 2025-01-25 13:55 | XMS_ITS | Encounter Summary ---
Author Organization [employer] Address 75 [facility] 7t [place] [address] Care Team Providers Care Buckle Gluer Name Role Phone Cherrie Gómez MD Primary Care Provide r Encounter Details Date Type Department Care Team (Latest Contact Info) Description 11/14/2020 Abstract [facility] CONVERSIONS Dental, Provider, DDS Social History [...] Description 01/28/2025 3:30 PM EDT Office Visit [facility] MEDICINE [address] [place] [address] Cherrie Gómez MD [address] [place] [address] documented as of this encounter Visit Diagnoses Not on filedocumented in this encounter Care Teams Buckle Gluer Relationship Specialty Start Date End Date Cherrie Gómez MD 230 [place] [address] PCP - General Family Medicine 11/05/19 [facility] 08/06/19 documented as of this encounter
--- OUTSIDE RECORDS SUMMARY | 2025-01-25 13:55 | XMS_ITS | Encounter Summary ---
Author Organization [employer] Address 75 [facility] 7t [place] [address] Care Team Providers Care Church History Teacher Name Role Phone Cherrie Gómez MD Primary Care Provide r Reason for Visit * Reason Onset Date Comments Nurse Triage 05/05/2024 Encounter Details Date Type Department Care Team ([facility] Contact Info) Description 05/05/2024 Telephone [facility] MEDICINE [address] [place] [address] Cherrie Gómez MD [address] [place] [address] Nurse Triage Social History Tobacco Use Types [...] your housing situation today? I have flo paul 03/04/[address] you li [...] concerns. Also provided daughter with contact for [facility] as a resources for any Therapy or Counseling or concerns for safety. Reviewed [facility] operating hours and that wait times [...] Description 01/28/2025 3:30 PM EDT Office Visit [facility] MEDICINE [address] [place] [address] Cherrie Gómez MD [address] [place] [address] documented as of this encounter Visit Diagnoses Not on filedocumented in this encounter Additional Health Concerns Assessment Noted Time PHQ-9 Depression Total Score: 20 023 2:53 PM EST documented as of this encounter Care Teams Church History Teacher Relationship Specialty Start Date End Date Cherrie Gómez MD [address] [place], [place] [phone] PCP - General Family Medicine 11/05/19 [facility] 08/06/19 documented as of this encounter
--- OUTSIDE RECORDS SUMMARY | 2025-01-25 13:55 | XMS_ITS | Encounter Summary ---
Author Organization [employer] Address [address] [facility] [address] [address] 7t [place] [address] Care Team Providers Care Double End Sewer Name Role Phone Cherrie Gómez MD Primary Care Provide r Reason for Visit * Reason Onset Date Comments Referral 06/18/2023 Encounter Details Date Type Department Care Team ([facility] Contact Info) Description 06/18/2023 Telephone [facility] MEDICINE [address] [place] [address] Cherrie Gómez MD [address] [place] [address] Referral Social History Tobacco Use Types Packs/Day [...] is your housing situation today? I have flodominic miller 03/04/[address] you [...] requesting a location change of referral Location: [address] [place] [address] Date: N/A Time: N/A Specialty: Memory DX: Memory loss Daughter stated pt already has referral for [facility] neurology but [facility] informed them that pt will need to be seen at a different location due to dx. If any questions Daughter stated feel free to contact at [phone]. documented in this encounter Plan of Treatment Upcoming Encounters Date Type Department Care Team (Late st Contact Info) Description 01/28/2025 3:30 PM EDT Office Visit [facility] MEDICINE [address] [place] [address] Cherrie Gómez MD 230 [place] [address] documented as of this encounter Visit Diagnoses Not on filedocumented in this encounter Additional Health Concerns Assessment Noted Time PHQ-9 Depression Total Score: 20 023 2:53 PM EST documented as of this encounter Care Teams Double End Sewer Relationship Specialty Start Date End Date Cherrie Gómez MD 230 [facility] [place] [address] PCP - General Family Medicine 11/05/19 [facility] 08/06/19 documented as of this encounter
--- OUTSIDE RECORDS SUMMARY | 2025-01-25 13:55 | XMS_ITS | Encounter Summary ---
Author Organization [email or web address] Address [address] [facility] [address] 7t [place] [address] Care Team Providers Care Mercerizing Range Feeder Name Role Phone Cherrie Gómez MD Primary Care Provide r Reason for Visit * Reason Onset Date Comments Med Refill 08/15/2023 Encounter Details Date Type Department Care Team ([facility] Contact Info) Description 08/15/2023 Telephone [facility] MEDICINE [address] [place] [address] Cherrie Gómez MD [address] [place] [address] Med Refill Social History Tobacco Use Types [...] 25 MG tablet To be sent to: [facility] [address] [place] [address] documented in this encounter Plan of Treatment Upcoming Encounters Date Type Department Care Team (Late st Contact Info) Description 01/28/2025 3:30 PM EDT Office Visit [facility] MEDICINE [address] [place] [address] Cherrie Gómez MD [address] [place], [place] [phone] documented as of this encounter Visit Diagnoses Not on filedocumented in this encounter Additional Health Concerns Assessment Noted Time PHQ-9 Depression Total Score: 20 023 2:53 PM EST documented as of this encounter Care Teams Mercerizing Range Feeder Relationship Specialty Start Date End Date Cherrie Gómez MD [address] [place] [address] PCP - General Family Medicine 11/05/19 [facility] 08/06/19 documented as of this encounter
--- OUTSIDE RECORDS SUMMARY | 2025-01-25 13:55 | XMS_ITS | Encounter Summary ---
Author Organization [employer] Address [address] [facility] [address] 7t [place] [address] Care Team Providers Care Business Services Officer Name Role Phone Cherrie Gómez MD Primary Care Provide r Encounter Details Date Type Department Care Team ([facility] Contact Info) Description 12/21/2024 Orders Only [facility] MEDICINE [address] [place] [address] Cherrie Gómez MD 230 [place] [address] Social History Tobacco Use Types Packs/Day Years Used Date Smoking Tobacco: Every Day Cigarettes Last attempted to quit: 2018 Passive Smoke Exposure: Current Smokeless Tobacco: Never Alcohol Use Standard Drinks/Week [...] 01/28/2025 3:30 PM EDT Office Visit [facility] MEDICINE [address] [place] [address] Cherrie Gómez MD [address] [place] [address] documented as of this encounter Visit Diagnoses Not on filedocumented in this encounter Additional Health Concerns Assessment Noted Time PHQ-9 Depression Total Score: 0 07/14/19 25 2:16 PM EST documented as of this encounter Care Teams Business Services Officer Relationship Specialty Start Date End Date Cherrie Gómez MD [address] [place] [address] PCP - General Family Medicine 11/05/19 [facility] 08/06/19 documented as of this encounter
--- OUTSIDE RECORDS SUMMARY | 2025-01-25 13:55 | XMS_ITS | Encounter Summary ---
Author Organization [employer] Address [address] [facility] [address] 7t [place] [address] Care Team Providers Care Loan Processing Supervisor Name Role Phone Cherrie Gómez MD Primary Care Provide r Encounter Details Date Type Department Care Team ([facility] Contact Info) Description 05/22/2024 Orders Only [facility] MEDICINE 230 [place] [address] Martha Robertson MD 230 [place] [address] Edema, unspecified type; HOWARD (dyspnea on exertion); Weight gain; Type 2 diabetes mellitus with stage 3 chronic kidney disease, without long-term current use of insulin, unspecified whether stage 3a or 3b CKD (CMS/HCC) Social History Tobacco Use Types Packs/Day Years Used Date Smoking Tobacco: Every Day Cigarettes Last attempted to quit: 2017 Passive Smoke Exposure: Past Smokeless Tobacco: Never [...] 3:30 PM EDT Office Visit [facility] MEDICINE [address] [place] [phone] Cherrie Gómez MD [address] [place] [address] documented as of this encounter Visit Diagnoses [...] documented as of this encounter Care Teams Loan Processing Supervisor Relationship Specialty Start Date End Date Cherrie Gómez MD [address] [place] [address] [phone] PCP - General Family Medicine 11/05/19 [facility] 08/06/19 documented as of this encounter
--- OUTSIDE RECORDS SUMMARY | 2025-01-25 13:55 | XMS_ITS | Encounter Summary ---
Author Organization [employer] Address [address] [facility] [address] 7t [place] [address] Care Team Providers Care Tape Coater Name Role Phone Cherrie Gómez MD Primary Care Provide r Encounter Details Date Type Department Care Team ([facility] Contact Info) Description 05/09/2023 Abstract [facility] ADULT DENTAL [address] [place] [address] Farheen Rojas, DDS [address] [place] [address] Social History Tobacco Use Types Packs/Day Years [...] Description 01/28/2025 3:30 PM EDT Office Visit [facility] MEDICINE [address] [place] [address] Cherrie Gómez MD 230 [place] [address] documented as of this encounter Visit Diagnoses Not on filedocumented in this encounter Additional Health Concerns Assessment Noted Time PHQ-9 Depression Total Score: 20 023 2:53 PM EST documented as of this encounter Care Teams Tape Coater Relationship Specialty Start Date End Date Cherrie Gómez MD [address] [place] [address] PCP - General Family Medicine 11/05/19 [facility] 08/06/19 documented as of this encounter
--- OUTSIDE RECORDS SUMMARY | 2025-01-25 13:55 | XMS_ITS | Encounter Summary ---
Author Organization [employer] Address 75 [facility] 7t [place] [address] Care Team Providers Care Lithopone Mill Worker Name Role Phone Cherrie Gómez MD Primary Care Provide r Reason for Visit * Reason Onset Date Comments Hospital Follow-up 05/06/2024 Encounter Details Date Type Department Care Team ([facility] Contact Info) Description 05/06/2024 Telephone [facility] MEDICINE 230 [place] [address] Cherrie Gómez MD [address] [place] [address] Hospital Follow-up Social History Tobacco Use Types [...] daughter, MAYURI, reports Pt was seen in [facility] ED 05/06/24 for UTI. Pt didn't have [...] prior to booking. Will request information from [facility] visit 05/06/24 be obtained for chart. Protocol [...] 05/06/2024 2:05 PM EST Triage call with [facility] railway switch operator , [place] [address]. Call to [phone] no answer, voice mail message left to call [facility] [phone]. Call to [phone], no answer. Left voice message to call [facility] [phone] * Telephone Encounter - Sincere Chang - 05/06/2024 12:09 PM EST Tc from pt requesting a HDF appt. Hospital: [facility] Date of admission: 05/06/2024 Discharge date: 05/06/2024 Diagnosed: UTI *Send message to [facility] Clinical Care Coordinators documented in this encounter Plan of Treatment Upcoming Encounters Date Type Department Care Team (Late st Contact Info) Description 01/28/2025 3:30 PM EDT Office Visit [facility] MEDICINE [address] [place] [address] Cherrie Gómez MD [address] [place] [address] documented as of this encounter Visit Diagnoses Not on filedocumented in this encounter Additional Health Concerns Assessment Noted Time PHQ-9 Depression Total Score: 20 023 2:53 PM EST documented as of this encounter Care Teams Lithopone Mill Worker Relationship Specialty Start Date End Date Cherrie Gómez MD [address] [place] [address] [phone] PCP - General Family Medicine 6/18/20 [facility] 08/06/19 documented as of this encounter
--- OUTSIDE RECORDS SUMMARY | 2025-01-25 13:55 | XMS_ITS | Encounter Summary ---
Author Organization [employer] Address [address] [facility] 7t [place] [address] Care Team Providers Care Computer Technical Specialist Name Role Phone Cherrie Gómez MD Primary Care Provide r Reason for Visit * Reason Comments Med Refill Encounter Details Date Type Department Care Team (Late Contact Info) Description 04/23/2022 Refill [facility] 230 [place] [address] Nancy Denny DO 230 [place] [address] Anemia, unspecified type Social History Tobacco Use [...] Department Care Team (Late Contact Info) Description 01/28/2025 3:30 PM EDT Office Visit [facility] MEDICINE [address] [place], [place] [phone] Cherrie Gómez MD 230 [place] [address] documented as of this encounter Visit Diagnoses Diagnosis Anemia, unspecified type documented in this encounter Care Teams Computer Technical Specialist Relationship Specialty Start Date End Date Cherrie Gómez MD 230 [place] [address] PCP - General Family Medicine 11/05/19 [facility] 08/06/19 documented as of this encounter
--- OUTSIDE RECORDS SUMMARY | 2025-01-25 13:55 | XMS_ITS | Encounter Summary ---
Author Organization [employer] Address 75 [facility] 7t [place] [address] Care Team Providers Care Control Room Operator Name Role Phone Cherrie Gómez MD Primary Care Provide r Encounter Details Date Type Department Care Team (Latest Contact Info) Description 01/22/2019 Abstract [facility] CONVERSIONS Dental, Provider, DDS Social History [...] Description 01/28/2025 3:30 PM EDT Office Visit [facility] MEDICINE 230 [place] [address] Cherrie Gómez MD 230 [place] [address] documented as of this encounter Visit Diagnoses Not on filedocumented in this encounter Care Teams Control Room Operator Relationship Specialty Start Date End Date Cherrie Gómez MD 230 [place] [address] PCP - General Family Medicine 11/05/19 [facility] 08/06/19 documented as of this encounter
--- OUTSIDE RECORDS SUMMARY | 2025-01-25 13:55 | XMS_ITS | Clinical Summary ---
Author Organization [facility] Address [address] [place] [address] [address] [place] [phone] Phone Care Team Providers Care Supervisor Shuttle Fitting Name Role Phone Cherrie Gómez MD Primary [...] 05/02/2023, 07/02/2018, 06/14/2017, Additional history exists Insurance [facility] ([id number]) JOHNNY SAMSON [id number] [place] [id number] [facility] ([id number]) JOHNNY SAMSON [id number] Care Teams Supervisor Shuttle Fitting Relationship Specialty Start Date End Date Cherrie Gómez MD [address] [place] [address] [place] [phone] PCP - General 05/30/20
--- OUTSIDE RECORDS SUMMARY | 2025-01-25 13:56 | XMS_ITS | Encounter Summary ---
Author Organization [employer] Address [address] [place] [address] 7t [place] [address] Care Team Providers Care Clinical Dietitian Name Role Phone Cherrie Gómez MD Primary Care Provide r Encounter Details Date Type Department Care Team ([facility] Contact Info) Description 01/09/2023 [facility] Health Information Management 230 [place] [address] Cherrie Gómez MD [address] [place] [address] Social History Tobacco Use Types Packs/Day Years [...] Upcoming Encounters Date Type Department Care Team ([facility] Contact Info) Description 01/28/2025 3:30 PM EDT Office Visit [facility] MEDICINE [address] [place] [address] Cherrie Gómez MD [address] [place] [address] documented as of this encounter Visit Diagnoses Not on filedocumented in this encounter Additional Health Concerns Assessment Noted Time PHQ-9 Depression Total Score: 16 023 11:35 AM EDT documented as of this encounter Care Teams Clinical Dietitian Relationship Specialty Start Date End Date Cherrie Gómez MD [address] [place] [address] PCP - General Family Medicine 11/05/19 [facility] 08/06/19 documented as of this encounter
--- OUTSIDE RECORDS SUMMARY | 2025-01-25 13:56 | XMS_ITS | Encounter Summary ---
Author Organization [employer] Address 75 [facility] 7t [place] [address] Care Team Providers Care Library Acquisitions Technician Name Role Phone Cherrie Gómez MD Primary Care Provide r Encounter Details Date Type Department Care Team ([facility] Contact Info) Description 01/29/2023 Telephone [facility] MEDICINE [address] [place] [address] [phone] Cierra Andrade LPN Social History Tobacco Use [...] Upcoming Encounters Date Type Department Care Team ([facility] Contact Info) Description 01/28/2025 3:30 PM EDT Office Visit [facility] MEDICINE [address] [place] [address] [phone] Cherrie Gómez MD 230 [place], [place] [phone] documented as of this encounter Visit Diagnoses Not on filedocumented in this encounter Additional Health Concerns Assessment Noted Time PHQ-9 Depression Total Score: 16 023 11:35 AM EDT documented as of this encounter Care Teams Library Acquisitions Technician Relationship Specialty Start Date End Date Cherrie Gómez MD 230 [place] [address] PCP - General Family Medicine 11/05/19 [facility] 08/06/19 documented as of this encounter
--- OUTSIDE RECORDS SUMMARY | 2025-01-25 13:56 | XMS_ITS | Encounter Summary ---
Author Organization [employer] Address [address] [facility] [address] 7t [place] [address] Care Team Providers Care Brake Repairer Air Name Role Phone Cherrie Gómez MD Primary Care Provide r Reason for Visit * Reason Onset Date Comments Med Refill 06/04/2024 Encounter Details Date Type Department Care Team ([facility] Contact Info) Description 06/04/2024 Telephone [facility] MEDICINE 230 [place] [address] Cherrie Gómez MD 230 [place] [address] Med Refill Social History Tobacco Use Types [...] 10:13 AM EST Medication was sent to [id number] on 04/13/24 90 day supply with 1 refill. * Telephone Encounter - Jess Lopez - 06/04/2024 9:48 AM EST TC from pt requesting medication refill. Medications needing refill : ferrous sulfate 325 (65 Fe) MG tablet To be sent to: [facility] #[id number] - [address] documented in this encounter Plan of Treatment Upcoming Encounters Date Type Department Care Team ([facility] st Contact Info) Description 01/28/2025 3:30 PM EDT Office Visit [facility] MEDICINE [address] [place] [address] Cherrie Gómez MD [address] [place] [address] documented as of this encounter Visit Diagnoses Not on filedocumented in this encounter Additional Health Concerns Assessment Noted Time PHQ-9 Depression Total Score: 20 023 2:53 PM EST documented as of this encounter Care Teams Brake Repairer Air Relationship Specialty Start Date End Date Cherrie Gómez MD 230 [place] [address] PCP - General Family Medicine 11/05/19 [facility] 08/06/19 documented as of this encounter
--- OUTSIDE RECORDS SUMMARY | 2025-01-25 13:56 | XMS_ITS | Encounter Summary ---
Author Organization [employer] Address [address] [facility] [address] [address] 7t [place] [address] Care Team Providers Care Mop Handle Assembler Name Role Phone Cherrie Gómez MD Primary Care Provide r Encounter Details Date Type Department Care Team ([facility] Contact Info) Description 01/06/2024 Telephone [facility] ADULT DENTAL [address] [place] [address] Javon Johnson, DDS [address] [place] [address] Social History Tobacco Use Types Packs/Day Years [...] Description 01/28/2025 3:30 PM EDT Office Visit [facility] MEDICINE [address] [place] [address] Cherrie Gómez MD 230 [place] [address] documented as of this encounter Visit Diagnoses Not on filedocumented in this encounter Additional Health Concerns Assessment Noted Time PHQ-9 Depression Total Score: 20 023 2:53 PM EST documented as of this encounter Care Teams Mop Handle Assembler Relationship Specialty Start Date End Date Cherrie Gómez MD 230 [place] [address] PCP - General Family Medicine 11/05/19 [facility] 08/06/19 documented as of this encounter
--- OUTSIDE RECORDS SUMMARY | 2025-01-25 13:56 | XMS_ITS | Encounter Summary ---
Author Organization [employer] Address [address] [facility] [address] 7t [place] [address] Care Team Providers Care Hall Coordinator Name Role Phone Cherrie Gómez MD Primary Care Provide r Reason for Visit * Reason Comments Med Refill Encounter Details Date Type Department Care Team ([facility] st Contact Info) Description 10/19/2022 Refill [facility] 230 [place] [address] Sharon Zavaleta MD 230 [place] [address] Anemia, unspecified type Social History Tobacco Use [...] Description 01/28/2025 3:30 PM EDT Office Visit [facility] MEDICINE [address] [place] [address] Cherrie Gmóez MD 230 [place] [address] documented as of this encounter Visit Diagnoses Diagnosis Anemia, unspecified type documented in this encounter Additional Health Concerns Assessment Noted Time PHQ-9 Depression Total Score: 16 023 11:35 AM EDT documented as of this encounter Care Teams Hall Coordinator Relationship Specialty Start Date End Date Cherrie Gómez MD [address] [place] [address] PCP - General Family Medicine 11/05/19 [facility] 08/06/19 documented as of this encounter
--- OUTSIDE RECORDS SUMMARY | 2025-01-25 13:56 | XMS_ITS | Continuity of Care Document ---
Author Name [employer] Address [address] [place] [address] Organization Unknown Address [address] [place] [address] Medications No known medications Problems No known problems
--- OUTSIDE RECORDS SUMMARY | 2025-01-25 13:56 | XMS_ITS | Encounter Summary ---
Author Organization [employer] Address [address] [facility] [address] 7[address] [place] [address] Care Team Providers Care Senior Interior Designer Name Role Phone Cherrie Gómez MD Primary Care Provide r Encounter Details Date Type Department Care Team ([facility] Contact Info) Description 07/27/2024 Orders Only [facility] MEDICINE 230 [place] [address] Cherrie Gómez MD 230 [place] [address] Social History Tobacco Use Types Packs/Day Years [...] Description 01/28/2025 3:30 PM EDT Office Visit [facility] MEDICINE [address] [place] [address] Cherrie Gómez MD 230 [place] [address] documented as of this encounter Visit Diagnoses Not on filedocumented in this encounter Additional Health Concerns Assessment Noted Time PHQ-9 Depression Total Score: 0 07/14/19 25 2:16 PM EST documented as of this encounter Care Teams Senior Interior Designer Relationship Specialty Start Date End Date Cherrie Gómez MD [address] [place] [address] PCP - General Family Medicine 11/05/19 [facility] 08/06/19 documented as of this encounter
--- OUTSIDE RECORDS SUMMARY | 2025-01-25 13:56 | XMS_ITS | Encounter Summary ---
Author Organization [employer] Address [address] [facility] 7t [place] [address] Care Team Providers Care Consulting Database Administrator Name Role Phone Cherrie Gómez MD Primary Care Provide r Reason for Visit * Reason Comments Med Refill Encounter Details Date Type Department Care Team ([facility] Contact Info) Description 01/09/2023 Refill [facility] [address] [place] [phone] Cherrie Gómez MD [address] [place] [phone] Social History Tobacco Use Types Packs/Day Years [...] Office Visit [facility] [address] [place] [phone] Cherrie Gómez MD [address] [place] [address] documented as of this encounter Visit Diagnoses Not on filedocumented in this encounter Additional Health Concerns Assessment Noted Time PHQ-9 Depression Total Score: 16 023 11:35 AM EDT documented as of this encounter Care Teams Consulting Database Administrator Relationship Specialty Start Date End Date Cherrie Gómez MD [address] [place] [address] PCP - General Family Medicine 11/05/19 [facility] 08/06/19 documented as of this encounter
--- OUTSIDE RECORDS SUMMARY | 2025-01-25 13:56 | XMS_ITS | Encounter Summary ---
Author Organization [employer] Address [address] [facility] 7t [place] [address] Care Team Providers Care Clerical Supervisor Name Role Phone Cherrie Gómez MD Primary Care Provide r Reason for Visit * Reason Onset Date Comments Med Refill 09/04/2024 Encounter Details Date Type Department Care Team ([facility] Contact Info) Description 09/04/2024 Telephone [facility] [address] [place] [address] Cherrie Gómez MD [address] [place] [address] Med Refill Social History Tobacco Use Types [...] 600-10 MG-MCG tablet To be sent to: [facility]/pharmacy #[id number] [place], [place] - [address] [place] [address] documented in this encounter Plan of Treatment Upcoming Encounters Date Type Department Care Team (Late st Contact Info) Description 01/28/2025 3:30 PM EDT Office Visit [facility] [address] [place] [address] Cherrie Gómez MD [address] [place], [place] [phone] documented as of this encounter Visit Diagnoses Not on filedocumented in this encounter Additional Health Concerns Assessment Noted Time PHQ-9 Depression Total Score: 0 07/14/19 25 2:16 PM EST documented as of this encounter Care Teams Clerical Supervisor Relationship Specialty Start Date End Date Cherrie Gómez MD [address] [place] [address] PCP - General Family Medicine 11/05/19 [facility] 08/06/19 documented as of this encounter
--- OUTSIDE RECORDS SUMMARY | 2025-01-25 13:56 | XMS_ITS | Encounter Summary ---
Author Organization [employer] Address [address] [facility] [address] 7t [place] [address] Care Team Providers Care Truck Spotter Name Role Phone Cherrie Gómez MD Primary Care Provide r Reason for Visit * Reason Onset Date Comments Med Refill 01/06/2024 Encounter Details Date Type Department Care Team ([facility] Contact Info) Description 01/06/2024 Telephone [facility] [address] [place] [address] Cherrie Gómez MD [address] [place] [address] Med Refill Social History Tobacco Use Types [...] 25 MG tablet To be sent to: [facility]/pharmacy #[address] [place] [address] - [address] [place] [address] documented in this encounter Plan of Treatment Upcoming Encounters Date Type Department Care Team (Late st Contact Info) Description 01/28/2025 3:30 PM EDT Office Visit [facility] [address] [place] [address] Cherrie Gómez MD [address] [place], [place] [phone] documented as of this encounter Visit Diagnoses Not on filedocumented in this encounter Additional Health Concerns Assessment Noted Time PHQ-9 Depression Total Score: 20 023 2:53 PM EST documented as of this encounter Care Teams Truck Spotter Relationship Specialty Start Date End Date Cherrie Gómez MD [address] [place] [address] PCP - General Family Medicine 11/05/19 [facility] 08/06/19 documented as of this encounter
--- OUTSIDE RECORDS SUMMARY | 2025-01-25 13:56 | XMS_ITS | Encounter Summary ---
Author Organization [employer] Address 75 [facility] 7t [place] [address] Care Team Providers Care Nail Artist Name Role Phone Cherrie Gómez MD Primary Care Provide r Reason for Visit * Reason Onset Date Comments FYI 10/31/2023 Encounter Details Date Type Department Care Team ([facility] Contact Info) Description 10/31/[address] [facility] MEDICINE [address] [place] [address] Cherrie Gómez MD [address] [place] [address] FYI Social History Tobacco Use Types Packs/Day [...] Description 01/28/2025 3:30 PM EDT Office Visit [facility] MED[facility]INE [address] [place] [address] Cherrie Gómez MD [address] [place] [address] documented as of this encounter Visit Diagnoses Not on filedocumented in this encounter Additional Health Concerns Assessment Noted Time PHQ-9 Depression Total Score: 20 023 2:53 PM EST documented as of this encounter Care Teams Nail Artist Relationship Specialty Start Date End Date Cherrie Gómez MD [address] [place] [address] [phone] PCP - General Family Medicine 11/05/19 [facility] 08/06/19 documented as of this encounter
== END 2025-01-25 12:06 | disposition left against medical advice (07) ==
PROVIDERS: Emergency Provider Emergency Medicine; PCP Internal Medicine
DX: J06.9 Acute upper respiratory infection, unspecified (principal); S89.91XA Unspecified injury of right lower leg, initial encounter; W19.XXXA Unspecified fall, initial encounter; Y93.9 Activity, unspecified; Y92.9 Unspecified place or not applicable; Y99.9 Unspecified external cause status; M25.561 Pain in right knee; I12.9 Hypertensive chronic kidney disease with stage 1 through stage 4 chronic kidney disease, or unspecified chronic kidney disease; E11.22 Type 2 diabetes mellitus with diabetic chronic kidney disease; N18.30 Chronic kidney disease, stage 3 unspecified; I48.0 Paroxysmal atrial fibrillation
CPT/HCPCS: 99282

== ENCOUNTER 2025-02-03 11:15 | Emergency (ER) | payer OTHER, SELFPAY ==
--- NOTE | ~2025-02-03 | XR_ITS ---
EXAMINATION: XR PELVIS CLINICAL INFORMATION: pain, injury COMPARISON: Correlated to CT abdomen pelvis dated December 02, 2020. TECHNIQUE: AP view of the pelvis. FINDINGS: The bony pelvis is intact. No lytic or blastic lesions. Vascular clips in the right lower pelvis. Nonspecific calcifications overlapping the sacrum. Multilevel marginal osteophyte formation in the included axial skeleton. XR/XR pelvis 1-2V IMPRESSION: No acute fracture. Electronically signed by: Vince Linares MD 02/03/2025 12:24 PM EDT
--- NOTE | ~2025-02-03 | CT_ITS ---
EXAMINATION: CT CERVICAL SPINE WITHOUT CONTRAST CLINICAL INFORMATION: Neck pain. Status post fall. COMPARISON: December 21, 2024. TECHNIQUE: Contiguous axial images through the cervical spine using 3 mm collimation with bone and soft tissue algorithm. Sagittal and coronal reformatted images acquired. DLP: [address] examination was performed using dose optimization techniques as appropriate, variously including the following: *Automated exposure control *Adjustment of mA and/or kV according to patient size (this includes techniques or standardized protocols for targeted exams where dose is matched to indication/reason for exam; i.e. extremities or head) *Use of iterative reconstruction technique FINDINGS: Craniocervical junction is intact with normal alignment between the occipital condyles and lateral masses of C1. C1 is intact. C2 is intact. C3 is intact. C4 is intact. C5 is intact. C6 is intact. C7 is intact. No prevertebral compartment hematoma. Marginal osteophyte formation at C3-4, C5-6 and C6-7 levels. Calcification of the posterior longitudinal ligament at C4 and C5-6. There is a central broad-based herniated disc at C4-5. The thyroid gland is not enlarged. There is a metallic reservoir in the anterior left upper hemithorax from the pacemaker. Tympanic cavities and mastoid cells are aerated. Calcified plaques in the cavernous segments both ICAs. Edentulous. CT/CT cervical spine wo IV con IMPRESSION: Multilevel cervical spondylosis C3-4 C5-6 and C6-7 levels with likely central disc herniation at C4-5. No acute fracture or trauma-related listhesis Fleischner guidelines were followed. Electronically signed by: Vince Linares MD 02/03/2025 01:01 PM EDT
--- NOTE | ~2025-02-03 | CT_ITS ---
EXAMINATION: CT HEAD WITHOUT CONTRAST CLINICAL INFORMATION: fall, head strike COMPARISON: December 21, 2024. TECHNIQUE: Contiguous axial imaging was performed from the skull base to vertex without intravenous administration of contrast. This CT examination was performed using dose optimization techniques as appropriate, variously including the following: *Automated exposure control *Adjustment of mA and/or kV according to patient size (this includes techniques or standardized protocols for targeted exams where dose is matched to indication/reason for exam; i.e. extremities or head) *Use of iterative reconstruction technique DLP: 606.52 mGy-cm FINDINGS: Old traumatic deformity, nasal bones. No acute cortical disruption in the bony calvarium or the skull base. No acute intracranial hemorrhage, mass effect, midline shift, hydrocephalus or herniation. Ware-white matter differentiation is normal. Posterior cranial fossa contents demonstrated no acute hemorrhage or mass effect. Normal position of the cerebellar tonsils. Sellar/suprasellar region demonstrated intrasellar CSF prominence suggesting diaphragmatic sella insufficiency. Prominence of the extra-axial CSF spaces and cerebral sulci involving mostly the frontal lobes. Calcified plaques in the cavernous supraclinoid segments both ICAs and V4 segment, left vertebral artery. No air-fluid levels in the paranasal sinuses. Poor pneumatization of the frontal sinus. Effervescent secretions, left frontal sinus and mucosal thickening, left ethmoid air cells. Small, 5 mm retention cyst right saphenous sinus.. Tympanic cavities and mastoid cells are aerated. No gross hematoma in the intraconal or extraconal compartments of the orbits. CT/CT head/brain wo IV con IMPRESSION: No acute fracture, bony calvarium. No acute intracranial hemorrhage. Bifrontal lobe atrophy, mild. Electronically signed by: Vince Linares MD 02/03/2025 12:54 PM EDT
[2025-02-03 11:43] VITALS: BP 116/54; BP 118/83; PULSE 60; PULSE 66; RESP 16; TEMP 36.3; O2SAT 96; O2SAT 97; BMI 26.6
--- NOTE | 2025-02-03 12:21 | ED_ITS ---
HPI - Fall General Chief Complaint: Fall Stated Complaint: FALL Time Seen by Provider: 02/03/25 11:56 Source: patient, EMS, old records reviewed and program director scouting Mode of arrival: EMS Limitations: no limitations History of Present Illness ED Provider: DR. Ponce HPI Narrative: 69-year-old female PMHx T2 DM, CKD 3, HTN, paroxysmal AFib with watchman placement, anxiety, depression, HLD, multiple falls due to being unbalanced, patient normally lives with her at home in both attend a day program at rehab patient sustained a mechanical fall at the rehab after felt unbalanced patient fell backward hitting the back of her head and complaining of neck pain, no SOB, no CP, patient declined taking anticoagulation. Patient overall is a limited historian even with using the program director scouting service during the exam. Related Data Home Medications ?Medication ?Instructions ?Recorded ?Confirmed calcium 600 mg (as 1 tab PO BID 03/09/20 carbonate)-vitamin D3 10 mcg (400 unit) tablet ferrous sulfate 325 mg (65 mg 325 mg PO BID 03/09/20 0 02/03/25 iron) tablet oxybutynin chloride 5 mg tablet 5 mg PO BID 03/09/20 0 02/03/25 trazodone 100 mg tablet 100 mg PO BEDTIME PRN Sleep 03/09/20 02/03/25 aspirin 81 mg tablet,delayed 81 mg PO DAILY 11/21/22 0 02/03/25 release (Adult Aspirin Regimen) escitalopram oxalate 20 mg tablet 20 mg PO DAILY 05/3002/03/25 meclizine 25 mg tablet 25 mg PO DAILY PRN Dizziness 06/27/23 02/03/25 multivitamin 1 tab PO DAILY 07/26/2301/18 lancets 28 gauge (FreeStyle #100 ea 10/18/23 01/04/25 Lancets) gabapentin 300 mg capsule 300 mg PO BEDTIME 07/08/24 0 02/03/25 loperamide 2 mg capsule 2 mg PO Q6H PRN Loose Stool 07/08/24 02/03/25 bupropion HCl 150 mg 24 hr tablet, 150 mg PO DAILY 02/03/25 extended release (Wellbutrin XL) insulin glargine 100 unit/mL (3 20 unit subcut DAILY 0 02/03/25 02/03/25 mL) subcutaneous pen (Lantus Solostar U-100 Insulin) Previous Rx's ?Medication ?Instructions ?Recorded blood-glucose meter (FreeStyle #1 ea 09/29/20 Lite Meter kit) atorvastatin 80 mg tablet 80 mg PO BEDTIME #30 tabs blood sugar diagnostic (FreeStyle #200 ea 10/04/21 Lite Strips) cholecalciferol (vitamin D3) 50 50 mcg PO DAILY #90 ca ps 01/08/22 mcg (2,000 unit) capsule diabetic shoes #1 ea 04/05/22 diabetic shoes #1 ea 12/21/22 aluminum-mag hydroxide-simethicone 10 ml PO QID PRN ch est pain #3,000 12/06/23 400 mg-400 mg-40 mg/5 mL oral susp mL (Mylanta Maximum Strength) amlodipine 5 mg tablet 5 mg PO DAILY #90 tabs 04/14 furosemide 20 mg tablet 20 mg PO DAILY weight gain # 90 tabs 04/21/24 simethicone 125 mg chewable tablet 125 mg PO BID-QID P RN abdominal 08/18/24 (Gas Relief (simethicone)) distention #120 tabs flecainide 50 mg tablet 50 mg PO Q12H #180 tabs 08/18 06/13 metoprolol succinate 25 mg 25 mg PO DAILY #90 tabs 05/13 tablet,extended release 24 hr glucose 4 gram chewable tablet 16 g (4 x 4 gram) PO Q1 5M PRN 09/30/24 (Dex4 Glucose) hypoglycemia 30 days #30 tab s insulin syringe-needle U-100 1 mL #100 ea 09/30/24 31 gauge x 16 metoclopramide HCl 5 mg tablet 5 mg PO QID #120 tabs 0 10/13/24 blood-glucose sensor (FreeStyle #2 ea 11/30/24 Zunilda 3 Plus Sensor device) blood-glucose,maintenance representative,cont #1 ea 11/30/24 (FreeStyle Zunilda 3 [place]) metformin 1,000 mg tablet 1,000 mg PO BID 90 days #180 tabs 01/04/25 Allergies Allergy/AdvReac Type Severity Reaction Status Date / Time empagliflozin AdvReac Intermediate uti Verified 02/03/25 11:47 Review of Systems 2 Review of Systems: All other systems are reviewed and are negative Constitutional: Reports as per HPI and Reports no additional constitutional complaints Eyes: Reports as per HPI and Reports no additional eye complaints Reports system reviewed and no additional complaints, except as documented Cardiovascular: Reports as per HPI and Reports no additional cardiovascular complaints Respiratory: Reports as per HPI and Reports no additional respiratory complaints Gastrointestinal: Reports as per HPI and Reports no additional gastrointestinal complaints Genitourinary: Reports no additional female genitourinary complaints Musculoskeletal: Reports no additional musculoskeletal complaints Skin/Breast: Reports system reviewed and no additional complaints, except as docu Psychiatric: Reports no additional psychiatric complaints Endocrine: Reports no additional endocrine complaints Hematologic/Lymphatic: Reports no additional hematologic/lymphatic complaints Allergic/Immunologic: Reports no additional allergic/immunologic complaints Reports system reviewed and no additional complaints, except as documented and Reports Abnormal speech present [facility] Past Medical History Medical History Diabetes mellitus type 2, insulin dependent Diastolic dysfunction Hypertension CKD stage 3 secondary to diabetes Gastroparesis due to secondary diabetes Bradycardia Burning with urination Encounter for monitoring anti-arrhythmic therapy Essential hypertension Abdominal bloating Small intestinal bacterial overgrowth Nausea and vomiting Dysphagia Periumbilical abdominal pain Globus sensation Orthostatic hypotension Presence of Watchman left atrial appendage closure device Subdural hematoma Syncope and collapse PAF (paroxysmal atrial fibrillation) Vitamin D deficiency Anxiety Depression Overweight (BMI 25.0-29.9) Dyslipidemia Non-toxic multinodular goiter Diabetic polyneuropathy associated with type 2 diabetes mellitus Diabetic retinopathy associated with type 2 diabetes mellitus Diabetes type 2, controlled Surgical History Hx of breast reduction, elective History of cholecystectomy H/O esophagogastroduodenoscopy Hx of colonoscopy History of gastric bypass History of gastric bypass Hx of hand surgery Family History Family History Father CVD (cardiovascular disease) Mother Diabetes Social History Social History Household Members: Spouse Alcohol intake: never Patient Tobacco Use Status: Former Tobacco user Tobacco use type: Cigarette Advance Directives: No Advance Directives Information Provided: Yes Physical Exam 2 Vital Signs: Vital Signs: Last Vital Signs Temp 97.4 F 02/03/25 11:43 Pulse 60 02/03/25 11:43 Resp 16 02/03/25 11:43 BP 116/54 L 02/03/25 11:43 Pulse Ox 96 02/03/25 11:43 BMI result Body Mass Index 26.6 Vital signs have been reviewed and appear to be correct. Blood pressure elevated. Heart rate normal. Respiratory rate normal. Temperature normal. Oxygen saturation normal. Appearance: Alert. Oriented X3. No acute distress. Head: Normal external exam. Normocephalic. Atraumatic. No Betts signs noted. No raccoon eyes noted Eyes: PERRLA. EOMI. Conjunctiva and sclera normal. Eyelids normal. ENT: TM's Normal. Pharynx normal. Uvula midline. Moist mucous membranes. No trismus noted. No drooling noted. No muffled voice noted. Neck: Normal inspection. Neck supple. FROM. No adenopathy. Thyroid Normal. No meningeal signs. No neck mass noted. CVS: Normal heart rate and rhythm. Heart sound normal. No murmurs noted. Pulses normal throughout. Respiratory: No respiratory distress. Painless inspiration. Breath sounds normal. No wheezes/rales/rhonchi noted. Chest nontender. No accessory muscle usage noted or decreased air movement noted. Abdomen: Soft and nontender. Bowel sounds normal in all 4 quadrants. No distention noted. No organomegaly noted. No visible injury noted. Back: No CVA tenderness. Full range of motion noted. Skin: Skin warm and dry. Normal skin color. Normal skin turgor. No rashes/lesions/lacerations noted. Extremities: No lower extremity edema. Extremities exhibit normal range of motion. Extremities nontender. Neuro: Oriented X 3. GCS 15 Cranial nerve exam: II-XII are grossly intact No motor deficit. No sensory deficit. Reflexes normal. Course Reevaluation(s) Reevaluation #1: labs at baseline, head/C-spine CT is unremarkable for acute trauma, pelvis x- ray shows no acute fracture. Time: 14:45 Medical Decision Making Differential Diagnosis Differential Diagnoses: The differential diagnosis associated with the presentation includes ( Intracranial pathology, cervical spine injury, pelvic injury, electrolyte derangement, severe anemia.) Admission/Observation Consideration of admission/observation: Escalation of care including admission/observation considered Lab Data MDM Lab Attestation statement: I reviewed the patient's lab results. 02/03/25 12:55 02/03/25 12:55 Labs: Lab Results 02/03/25 Range/Units 12:55 WBC 5.1 (4.8-10.8) X10*3/uL RBC 4.11 L (4.20-5.50) X10*6/uL Hgb 13.4 (12.0-16.0) g/dl Hct 37.5 (37.0-47.0) % MCV 91.2 (80.0-98.0) fL MCH 32.6 (27.0-33.0) pg MCHC 35.7 H (31.0-35.0) g/dl RDW 12.2 (11.0-16.0) % Plt Count 169 (160-400) X10*3/uL MPV 9.4 (9.4-12.3) fL Immature Gran % (Auto) 0.2 (0.0-0.4) % Neut % (Auto) 69.4 (45-73) % Lymph % (Auto) 21.2 (20-40) % [place] % (Auto) 7.6 (2-11) % Eos % (Auto) 1.4 (0-4) % Baso % (Auto) 0.2 (0-2) % Lymph # (Auto) 1.1 L (1.2-4.9) X10*3/uL [place] # (Auto) 0.4 (0.1-1.2) X10*3/uL Eos # (Auto) 0.1 (0.0-0.4) X10*3/uL Baso # (Auto) 0.0 (0.0-0.2) X10*3/uL Abs Immat Gran (auto) 0.01 (0.00-0.03) X10*3/uL Absolute Neuts (auto) 3.6 (2.0-8.3) x10*3/uL Absolute Nucleated RBC 0.000 (0.0-0.012) X10*3/uL Nucleated RBC % (auto) 0.0 (0.0-0.2) /100WBC Sodium 136 (135-145) mmol/L Potassium 4.7 (3.3-5.1) mmol/L Chloride 103 (96-108) mmol/L Carbon Dioxide 23 (22-29) mmol/L Anion Gap 15 (12-20) BUN 24 H (9-16) mg/dL Creatinine 1.42 H (0.5-1.4) mg/dL Estim Creat Clear Calc 35.5 Estimated GFR 37 Random Glucose 80 (60-115) mg/dL Calcium 9.4 (8.4-10.2) mg/dL Magnesium 1.7 (1.6-2.6) mg/dL Total Bilirubin 0.4 (0.0-1.0) mg/dL AST 29 (5-31) U/L ALT 33 H (0-31) U/L Alkaline Phosphatase 67 (39-117) U/L Total Protein 7.2 (6.5-8.0) g/dL Albumin 4.2 (3.5-5.0) g/dL COVID-19 (BELLE) Negative (Negative) COVID-19 Clin Com See Note Influenza Type A (MENA) Negative (Negative) Influenza Type B (MENA) Negative (Negative) Influenza A & B Note See Note Independent Interpretation I performed an independent interpretation of an: Plain X-Ray ( Pelvis : x-ray is no acute fracture.) and CT Scan ( Head/C-spine : no acute pathology.) Radiology Impression Discussion of test interpretation with radiology: I have reviewed the radiologist's reading. Discharge Plan Discharge Clinical Impression: Fall, Closed head injury, Cervical spine pain Patient Disposition: Home, Self-Care Instructions: Fall Prevention for Older Adults (ED) Prescriptions: No Action (DME) blood-glucose meter [FreeStyle Lite Meter] Kit See Rx Instructions miscellaneous .MEDSUPPLY Qty: 1 0RF Rx Instructions: Twice a day atorvastatin 80 mg tablet 80 mg PO BEDTIME Qty: 30 11RF (DME) FreeStyle Lite Strips Strip See Rx Instructions .MEDSUPPLY Qty: 200 10RF Rx Instructions: 2times a day cholecalciferol (vitamin D3) 50 mcg (2,000 unit) capsule 50 mcg PO DAILY Qty: 90 4RF (DME) diabetic shoes See Rx Instructions .ROUTE .MEDSUPPLY Qty: 1 0RF Rx Instructions: extra depth orthopedic shoes ( 1 pair ) with customize heat molded multi density inner soles ( 3 pair) Dispense 1 Sig: As directed DX: And IDDM /polyneuropathy ( E11 0.42 ); hammertoe foot deformity ( M 20.41, and 20.42 ) pre ulcerative skin lesion ( L 85.1 ) Diagnosis ( E11 0.42 ) type 2 diabetes with polyneuropathy aspirin [Adult Aspirin Regimen] 81 mg tablet,delayed release (DR/EC) 81 mg PO DAILY amlodipine 5 mg tablet 5 mg PO DAILY Qty: 90 3RF furosemide 20 mg tablet 20 mg PO DAILY Qty: 90 3RF Rx Instructions: take as needed for weight gain of 3 lbs over night until at baseline weight. simethicone [Gas Relief (simethicone)] 125 mg tablet,chewable 125 mg PO BID-QID PRN (Reason: abdominal distention) Qty: 120 6RF flecainide 50 mg tablet 50 mg PO Q12H Qty: 180 3RF metoprolol succinate 25 mg tablet extended release 24 hr 25 mg PO DAILY Qty: 90 3RF metoclopramide HCl 5 mg tablet 5 mg PO QID Qty: 120 2RF (DME) FreeStyle Zunilda 3 Plus Sensor Device See Rx Instructions .ROUTE .MEDSUPPLY Qty: 2 11RF Rx Instructions: As directed for coninuous use change every 15 days (DME) FreeStyle Zunilda 3 [place] Misc See Rx Instructions .Route Qty: 1 0RF Rx Instructions: As directed insulin glargine [Lantus Solostar U-100 Insulin] 100 unit/mL (3 mL) insulin pen 20 unit subcut DAILY ferrous sulfate 325 mg (65 mg iron) tablet 325 mg PO BID calcium carbonate-vitamin D3 600 mg(1,500mg) -400 unit tablet 1 tab PO BID trazodone 100 mg tablet 100 mg PO BEDTIME PRN (Reason: Sleep) oxybutynin chloride 5 mg tablet 5 mg PO BID (DME) diabetic shoes See Rx Instructions .ROUTE .MEDSUPPLY Qty: 1 0RF Rx Instructions: extra depth orthopedic shoes ( 1 pair ) with customize heat molded multi density inner soles ( 3 pair) Dispense 1 Sig: As directed DX: And IDDM /polyneuropathy ( E11 0.42 ); hammertoe foot deformity ( M 20.41, and 20.42 ) pre ulcerative skin lesion ( L 85.1 ) Diagnosis ( E11 0.42 ) type 2 diabetes with polyneuropathy bupropion HCl [Wellbutrin XL] 150 mg tablet extended release 24 hr 150 mg PO DAILY metformin 1,000 mg tablet 1,000 mg PO BID 90 Days Qty: 180 1RF escitalopram oxalate 20 mg tablet 20 mg PO DAILY meclizine 25 mg tablet 25 mg PO DAILY PRN (Reason: Dizziness) multivitamin Tablet 1 tab PO DAILY (DME) lancets [FreeStyle Lancets] 28 gauge misc See Rx Instructions .ROUTE .MEDSUPPLY Qty: 100 Rx Instructions: As directed alum-mag hydroxide-simeth [Mylanta Maximum Strength] 400-400-40 mg/5 mL suspension 10 ml PO QID PRN (Reason: chest pain) Qty: 3000 3RF gabapentin 300 mg capsule 300 mg PO BEDTIME loperamide 2 mg capsule 2 mg PO Q6H PRN (Reason: Loose Stool) (DME) insulin syringe-needle U-100 1 mL 31 gauge x 5/16 syringe See Rx Instructions .ROUTE .MEDSUPPLY Qty: 100 8RF Rx Instructions: As directed twice daily glucose [Dex4 Glucose] 4 gram tablet,chewable 16 g PO Q15M MDD 16 tablets PRN (Reason: hypoglycemia) 30 Days Qty: 30 3RF Rx Instructions: every 15 minutes until symptoms of low blood sugar are controlled Print Language: Czech
[2025-02-03 13:00] LABS: MANUAL DIFF FLAG NO
[2025-02-03 13:05] LABS: Hematocrit 37.5 % (37.0-47.0); Hemoglobin 13.4 g/dl (12.0-16.0); Imm Gran Abs Auto 0.01 X10*3/uL (0.00-0.03); Imm Gran Pct Auto 0.2 % (0.0-0.4); Lymphocytes Absolute Auto 1.1 X10*3/uL (1.2-4.9); Mean Corpuscular HGB Conc 35.7 g/dl (31.0-35.0); Mean Corpuscular Hemoglobin 32.6 pg (27.0-33.0); Mean Corpuscular Volume 91.2 fL (80.0-98.0); NRBC Abs Auto 0.000 X10*3/uL (0.0-0.012); NRBC Pct Auto 0.0 /100WBC (0.0-0.2); Platelet Count 169 X10*3/uL (160-400); Red Blood Count 4.11 X10*6/uL (4.20-5.50); White Blood Count 5.1 X10*3/uL (4.8-10.8)
[2025-02-03 13:24] LABS: Alanine Aminotransferase 33 U/L (0-31); Albumin Level 4.2 g/dL (3.5-5.0); Alkaline Phosphatase 67 U/L (39-117); Anion Gap 15 (12-20); Aspartate Amino Transferase 29 U/L (5-31); Blood Urea Nitrogen 24 mg/dL (9-16); Calcium 9.4 mg/dL (8.4-10.2); Carbon Dioxide 23 mmol/L (22-29); Chloride 103 mmol/L (96-108); Creatinine Clr Calc Pharmacy 35.5; Estimated Glomerular Filt Rate 37; Magnesium 1.7 mg/dL (1.6-2.6); Potassium 4.7 mmol/L (3.3-5.1); Sodium 136 mmol/L (135-145); Total Protein 7.2 g/dL (6.5-8.0)
[2025-02-03 13:30] LABS: COVID-19 Test Negative (Negative); IDNOW Serial# 55D5AD1C
[2025-02-03 13:31] LABS: IDNOW Serial# 58CA691E
[2025-02-03 13:32] LABS: Influenza B2 Negative (Negative)
--- NOTE | 2025-02-03 14:04 | PHA.MEDREC ---
Pharmacy Consult ? Medication Reconciliation Pharmacy has completed the medication reconciliation. Received med list from [facility] and used that and pharmacy claims to confirm meds.
[2025-02-03 14:57] VITALS: BP 143/78; PULSE 76; RESP 18; TEMP 36.6; O2SAT 98
--- OUTSIDE RECORDS SUMMARY | 2025-02-03 15:29 | XMS_ITS | Encounter Summary ---
Author Organization [employer] Address [address] [place] [address] Care Team Providers Care Quality Assurance Practice Manager Name Role Phone Cherrie Gómez MD Primary Care Provide r Reason for Visit * Reason Onset Date Comments Referral 06/18/2023 Encounter Details Date Type Department Care Team ([facility] Contact Info) Description 06/18/2023 Telephone [facility] MEDICINE [address] [place] [address] Cherrie Gómez MD [address] [place] [address] Referral Social History Tobacco Use Types Packs/Day [...] requesting a location change of referral Location: [address] [place] [id number] Date: N/A Time: N/A Specialty: Memory DX: Memory loss Daughter stated pt already has referral for [facility] neurology but [facility] informed them that pt will need to be seen at a different location due to dx. If any questions Daughter stated feel free to contact at [phone]. documented in this encounter Plan of Treatment Not on file documented as of this encounter Visit Diagnoses Not on filedocumented in this encounter Additional Health Concerns Assessment Noted Time PHQ-9 Depression Total Score: 20 023 2:53 PM EST documented as of this encounter Care Teams Quality Assurance Practice Manager Relationship Specialty Start Date End Date Cherrie Gómez MD [address] [place] [address] PCP - General Family Medicine 11/05/19 [facility] 08/06/19 documented as of this encounter
--- OUTSIDE RECORDS SUMMARY | 2025-02-03 15:29 | XMS_ITS | Encounter Summary ---
Author Organization [employer] Address [address] 7t [place] [address] Care Team Providers Care Elementary Esl Teacher Name Role Phone Cherrie Gómez MD Primary Care Provide r Reason for Visit * Reason Comments Med Refill Encounter Details Date Type Department Care Team ([facility] st Contact Info) Description 05/17/2023 Refill [facility] MEDICINE [address] [place] [address] Cherrie Gómez MD 230 [place] [address] Type 2 diabetes mellitus without complications (CMS/HCC) [...] as of this encounter Plan of Treatment Not on file documented as of this encounter Visit Diagnoses Diagnosis Type 2 diabetes mellitus without complications (CMS/HCC) documented in this encounter Additional Health Concerns Assessment Noted Time PHQ-9 Depression Total Score: 20 023 2:53 PM EST documented as of this encounter Care Teams Elementary Esl Teacher Relationship Specialty Start Date End Date Cherrie Gómez MD [address] [place] [address] PCP - General Family Medicine 11/05/19 [facility] 08/06/19 documented as of this encounter
--- OUTSIDE RECORDS SUMMARY | 2025-02-03 15:29 | XMS_ITS | Encounter Summary ---
Author Organization [employer] Address [address] [facility] 7t [place] [address] Care Team Providers Care Tannery Gummer Name Role Phone Cherrie Gómez MD Primary Care Provide r Reason for Visit * Reason Onset Date Comments Hospital Follow-up 05/06/2024 Encounter Details Date Type Department Care Team ([facility] Contact Info) Description 05/06/2024 Telephone [facility] MEDICINE [address] [place] [address] Cherrei Gómez MD [address] [place] [address] Hospital Follow-up Social History Tobacco Use Types [...] daughter, MAYURI, reports Pt was seen in [facility] ED 05/06/24 for UTI. Pt didn't have [...] prior to booking. Will request information from [facility] visit 05/06/24 be obtained for chart. Protocol [...] 05/06/2024 2:05 PM EST Triage call with [facility] sales incentive analyst , [place] [id number]. Call to [phone] no answer, voice mail message left to call [facility] [phone]. Call to [phone], no answer. Left voice message to call [facility] [phone] * Telephone Encounter - Sincere Chang - 05/06/2024 12:09 PM EST Tc from pt requesting a HDF appt. Hospital: [facility] Date of admission: 05/06/2024 Discharge date: 05/06/2024 Diagnosed: UTI *Send message to [place] [facility] Care Coordinators documented in this encounter Plan of Treatment Not on file documented as of this encounter Visit Diagnoses Not on filedocumented in this encounter Additional Health Concerns Assessment Noted Time PHQ-9 Depression Total Score: 20 023 2:53 PM EST documented as of this encounter Care Teams Tannery Gummer Relationship Specialty Start Date End Date Cherrie Gómez MD [address] [place] [address] PCP - General Family Medicine 11/05/19 [facility] 08/06/19 documented as of this encounter
--- OUTSIDE RECORDS SUMMARY | 2025-02-03 15:29 | XMS_ITS | Encounter Summary ---
Author Organization [employer] Address [address] 7t [place] [address] Care Team Providers Care [employer] Operations Staff Officer Name Role Phone Cherrie Gómez MD Primary Care Provide r Reason for Visit * Reason Comments Med Refill Encounter Details Date Type Department Care Team ([facility] st Contact Info) Description 07/08/2023 Refill [facility] MEDICINE [address] [place] [address] Cherrie Gómez MD [address] [place] [address] Social History Tobacco Use Types Packs/Day Years [...] documented as of this encounter Care Teams [employer] Operations Staff Officer Relationship Specialty Start Date End Date Cherrie Gómez MD [address] [place] [address] PCP - General Family Medicine 11/05/19 [facility] 08/06/19 documented as of this encounter
--- OUTSIDE RECORDS SUMMARY | 2025-02-03 15:29 | XMS_ITS | Encounter Summary ---
Author Organization [employer] Address [address] [facility] 7t [place] [address] Care Team Providers Care Pediatric Ophthalmologist Name Role Phone Cherrie Gómez MD Primary Care Provide r Reason for Visit * Reason Onset Date Comments FYI 02/03/2025 Encounter Details Date Type Department Care Team ([facility] Contact Info) Description 02/03/2025 Telephone [facility] MEDICINE 230 [place] [address] Cherrie Gómez MD [address] [place] [address] FYI Social History Tobacco Use Types Packs/Day [...] encounter Miscellaneous Notes * Telephone Encounter - Adam Schofield - 02/03/2025 12:45 PM EDT K[place]ALL... Tc from danni a nurse from [facility] reporting that pt had fall on 02/02/2025 night and now I a lump on her head. Pt did fall on 02/03/2025 morning and was sent to the ER due to the two falls. Danni also stated that pt has not been eating lately and has not been usingher walker (one reason why she fell). Pt is currently in the ER. Any questions contact danni at [phone] Ext [phone]. If danni does not burr picker then send a VM or call the number again without adding the ext. documented in this encounter Plan of Treatment Not on file documented as of this encounter Visit Diagnoses Not on filedocumented in this encounter Additional Health Concerns Assessment Noted Time PHQ-9 Depression Total Score: 0 07/14/19 25 2:16 PM EST documented as of this encounter Care Teams Pediatric Ophthalmologist Relationship Specialty Start Date End Date Cherrie Gómez MD [address] [place] [address] PCP - General Family Medicine 11/05/19 [facility] 08/06/19 documented as of this encounter
--- OUTSIDE RECORDS SUMMARY | 2025-02-03 15:29 | XMS_ITS | Encounter Summary ---
Author Organization [employer] Address [address] 7t [place] [address] Care Team Providers Care Tire Sorter Name Role Phone Cherrie Gómez MD Primary Care Provide r Reason for Visit * Reason Comments Med Refill Encounter Details Date Type Department Care Team ([facility] st Contact Info) Description 01/31/2025 Refill [facility] MEDICINE [address] [place] [address] Cherrie Gómez MD [address] [place] [address] Social History Tobacco Use Types Packs/Day Years [...] documented as of this encounter Care Teams Tire Sorter Relationship Specialty Start Date End Date Cherrie Gómez MD [address] [place] [address] PCP - General Family Medicine 11/05/19 [facility] 08/06/19 documented as of this encounter
--- OUTSIDE RECORDS SUMMARY | 2025-02-03 15:29 | XMS_ITS | Encounter Summary ---
Author Organization [employer] Address [address] 7t [place] [address] Care Team Providers Care Hamper Maker Name Role Phone Cherrie Gómez MD Primary Care Provide r Reason for Visit * Reason Onset Date Comments Med Refill 06/17/2023 Encounter Details Date Type Department Care Team ([facility] Contact Info) Description 06/17/2023 Telephone [facility] MEDICINE [address] [place] [address] Cherrie Gómez MD [address] [place] [address] Med Refill Social History Tobacco Use Types [...] 25 MG tablet To be sent to: [facility]/pharmacy #[id number] [place] [address] - [address] [place] [address] documented in this encounter Plan of Treatment Not on file documented as of this encounter Visit Diagnoses Not on filedocumented in this encounter Additional Health Concerns Assessment Noted Time PHQ-9 Depression Total Score: 20 023 2:53 PM EST documented as of this encounter Care Teams Hamper Maker Relationship Specialty Start Date End Date Cherrie Gómez MD [address] [place] [address] PCP - General Family Medicine 11/05/19 [place] [facility] 08/06/19 documented as of this encounter
--- OUTSIDE RECORDS SUMMARY | 2025-02-03 15:29 | XMS_ITS | Encounter Summary ---
Author Organization [employer] Address [address] 7t [place] [address] Care Team Providers Care General Manager Name Role Phone Cherrie Gómez MD Primary Care Provide r Encounter Details Date Type Department Care Team ([facility] Contact Info) Description 05/09/2023 Abstract [facility] [address] [place] [address] Farheen Rojas, DDS [address] [place] [address] Social History Tobacco Use Types Packs/Day Years [...] documented as of this encounter Care Teams General Manager Relationship Specialty Start Date End Date Cherrie Gómez MD 230 [place] [address] PCP - General Family Medicine 11/05/19 [facility] 08/06/19 documented as of this encounter
--- OUTSIDE RECORDS SUMMARY | 2025-02-03 15:29 | XMS_ITS | Encounter Summary ---
Author Organization [employer] Address [address] 7t [place] [address] Care Team Providers Care Mechanic Chief Name Role Phone Cherrie Gómez MD Primary Care Provide r Encounter Details Date Type Department Care Team ([facility] Contact Info) Description 02/27/[address] [facility] MEDICINE [address] [place] [address] Cherrie Gómez MD [address] [place], [place] [phone] Social History Tobacco Use Types Packs/Day Years [...] documented as of this encounter Care Teams Mechanic Chief Relationship Specialty Start Date End Date Cherrie Gómez MD [address] [place] [address] PCP - General Family Medicine 11/05/19 [facility] 08/06/19 documented as of this encounter
--- OUTSIDE RECORDS SUMMARY | 2025-02-03 15:29 | XMS_ITS | Encounter Summary ---
Author Organization [employer] Address [address] [facility] 7t [place] [address] Care Team Providers Care Horticultural Manager Name Role Phone Cherrie Gómez MD Primary Care Provide r Reason for Visit * Reason Onset Date Comments FYI 01/29/2025 Encounter Details Date Type Department Care Team ([facility] Contact Info) Description 01/29/2025 Telephone [facility] MEDICINE 230 [place] [address] Cherrie Gómez MD [address] [place] [address] FYI Social History Tobacco Use Types Packs/Day [...] Telephone Encounter - Chery Bales RN - 02/01/2025 9:34 AM EDT TC placed to pt. At [phone], received message the person you are calling can not receive callsat this time. TC placed to daughter at [phone] (on HIPAA) for status check after fall, no answer, left VM requesting call back to Red Team RN Upon receipt of message. Pt/ daughter to f/up prn * Telephone Encounter - Rock Muller - 01/29/2025 10:53 AM EDT Tc from ALEAH Ervin at [facility], reporting that the patient had a fall today. Patient slipped and fell on buttocks due to sandals. Patient denies injury, pain, or dizziness No visible bruising Vitals Normal Blood sugar level normal documented in this encounter Plan of Treatment Not on file documented as of this encounter Visit Diagnoses Not on filedocumented in this encounter Additional Health Concerns Assessment Noted Time PHQ-9 Depression Total Score: 0 07/14/19 25 2:16 PM EST documented as of this encounter Care Teams Horticultural Manager Relationship Specialty Start Date End Date Cherrie Gómez MD [address] [place] [address] PCP - General Family Medicine 11/05/19 [facility] 08/06/19 documented as of this encounter
--- OUTSIDE RECORDS SUMMARY | 2025-02-03 15:29 | XMS_ITS | Clinical Summary ---
Author Organization [facility] Address [address] [facility] [address] [place] [address] Phone Care Team Providers Care Barn Manager Name Role Phone Cherrie Gómez MD [...] Active ferrous sulfate 325 mg (65 mg three affiliated iron) tablet Take 325 mg by mouth [...] file Insurance MEDICARE PART A & B [facility] MEDICARE REPLACEMENT MEDICARE PART A & B Member Subscriber Plan / Payer (Ef fective 2023-Present) Name:Dana Winter Member ID:[id number] Relation to Subscriber:Self Name:Dana Winter Subscriber ID:[id number] Payer ID:[id number] Group ID:Not on file Type:Medicare Address: [employer] [address] MEDICARE REPLACEMENT MEDICARE PART A & B Member Subscriber Plan / Payer (Ef fective 2023-Present) Name:Dana Winter Member ID:[id number] Relation to Subscriber:Self Name:Dana Winter Subscriber ID:[id number] Payer ID:[id number] Group ID:Not on file Type:Medicare Address: [employer] [address] [place] [id number] [facility] MEDICARE REPLACEMENT MEDICARE PART A & B Member Subscriber Plan / Payer (Ef fective 2023-Present) Name:Dana Winter Member ID:[id number] Relation to Subscriber:Self Name:Dana Winter Subscriber ID:[id number] Payer ID:[id number] Group ID:Not on file Type:Medicare Address: [employer] [address] [place] [id number] [place] [address] MEDICARE REPLACEMENT JOHNNY SAMSON [id number] MEDICARE PART A & B [facility] MEDICARE REPLACEMENT MEDICARE PART A & B [facility] MEDICARE REPLACEMENT Care Teams Barn Manager Relationship Specialty Start Date End Date Cherrie Gómez MD [address] [place] [address] PCP - General Internal Medicine 08/01/23 Additional Source Comments The information contained in this document represents components of the legal health record. It is not the complete legal health record.[facility]
--- OUTSIDE RECORDS SUMMARY | 2025-02-03 15:29 | XMS_ITS | Encounter Summary ---
Author Organization [employer] Address [address] 7t [place] [address] Care Team Providers Care Insurance Salesman Name Role Phone Cherrie Gómez MD Primary Care Provide r Encounter Details Date Type Department Care Team ([facility] Contact Info) Description 03/07/2023 Telephone [facility] MEDICINE [address] [place] [address] Cherrie Gómez MD 230 [place], [place] [phone] Social History Tobacco Use Types Packs/Day Years [...] as of this encounter Care Teams Insurance Salesman Relationship Specialty Start Date End Date Cherrie Gómez MD [address] [place] [address] PCP - General Family Medicine 11/05/19 [facility] 08/06/19 documented as of this encounter
--- OUTSIDE RECORDS SUMMARY | 2025-02-03 15:29 | XMS_ITS | Encounter Summary ---
Author Organization [employer] Address [address]t [place] [address] Care Team Providers Care Wildlife Control Agent Name Role Phone Cherrie Gómez MD Primary Care Provide r Encounter Details Date Type Department Care Team ([facility] Contact Info) Description 04/13/2024 Telephone [facility] MEDICINE [address] [place] [address] Cherrie Gómez MD 230 [place], [place] [phone] Social History Tobacco Use Types Packs/Day Years [...] documented as of this encounter Care Teams Wildlife Control Agent Relationship Specialty Start Date End Date Cherrie Gómez MD [address] [place] [address] PCP - General Family Medicine 11/05/19 [facility] 08/06/19 documented as of this encounter
--- OUTSIDE RECORDS SUMMARY | 2025-02-03 15:29 | XMS_ITS | Encounter Summary ---
Author Organization [employer] Address [address] [facility] 7t [place] [address] Care Team Providers Care Vessel Liner Name Role Phone Cherrie Gómez MD Primary Care Provide r Reason for Visit * Reason Onset Date Comments Nurse Triage 05/05/2024 Encounter Details Date Type Department Care Team ([facility] Contact Info) Description 05/05/2024 Telephone [facility] MEDICINE 230 [place] [address] Cherrie Gómez MD 230 [place] [address] Nurse Triage Social History Tobacco Use Types [...] concerns. Also provided daughter with contact for [facility] as a resources for any Therapy or Counseling or concerns for safety. Reviewed [facility] operating hours and that wait times vary. [...] documented as of this encounter Care Teams Vessel Liner Relationship Specialty Start Date End Date Cherrie Gómez MD 230 [place] [address] PCP - General Family Medicine 11/05/19 [facility] 08/06/19 documented as of this encounter
--- OUTSIDE RECORDS SUMMARY | 2025-02-03 15:29 | XMS_ITS | Encounter Summary ---
Author Organization [employer] Address [address] [place] [address] Care Team Providers Care Rack Production Worker Name Role Phone Cherrie Gómez MD Primary Care Provide r Reason for Visit * Reason Onset Date Comments Med Refill 08/15/2023 Encounter Details Date Type Department Care Team ([facility] Contact Info) Description 08/15/2023 Telephone [facility] MEDICINE [address] [place] [address] Cherrie Gómez MD [address] [place] [address] Med Refill Social History Tobacco Use Types [...] 25 MG tablet To be sent to: [facility] [address] [place] [address] documented in this encounter Plan of Treatment Not on file documented as of this encounter Visit Diagnoses Not on filedocumented in this encounter Additional Health Concerns Assessment Noted Time PHQ-9 Depression Total Score: 20 023 2:53 PM EST documented as of this encounter Care Teams Rack Production Worker Relationship Specialty Start Date End Date Cherrie Gómez MD [address] [place] [address] PCP - General Family Medicine 11/05/19 [facility] 08/06/19 documented as of this encounter
--- OUTSIDE RECORDS SUMMARY | 2025-02-03 15:29 | XMS_ITS | Clinical Summary ---
Author Organization [employer] Address [address] [facility] 7t [place] [address] Care Team Providers Care Formulation Technician Name Role Phone Cherrie Gómez MD [...] unspecified whether stage 3a or 3b CKD ([facility]) USE WITH INSULIN ONCE DAILY at bed [...] unspecified whether stage 3a or 3b CKD ([facility]) Inject 20 Units under the skin [...] unspecified whether stage 3a or 3b CKD ([facility]) USE TO TEST BLOOD SUGAR 3 TIMES DAILY 100 strip 11 10/30/19 25 Active ferrous sulfate 325 (65 Fe) MG tabletIndicatio ns:Anemia, unspecified type TAKE 1 TABLET BY MOUTH EVERY 12 HOURS 180 tablet 1 12/04/19 25 Active metFORMIN (Glucophage) 1000 MG tablet [...] BEDTIME 90 tablet 3 01/15/20 25 Active meclizine (Antivert) 25 MG tablet TAKE 1 TABLET BY MOUTH IN THE MORNING, AT NOON, AND BEDTIME NEEDED FOR DIZZINESS 30 tablet 1 02/02/20 25 Active atorvastatin (Lipitor) 80 MG tabletIndicatio ns:Hyperlipidem ia associated with type 2 diabetes mellitus (CMS/HCC) TOME NEELAM TABLETA POR VIA ORAL ONCE DAILY AT BEDTIME 90 tablet 3 12/26/19 24 025 Discontinued meclizine (Antivert) 25 MG tablet TAKE 1 TABLET BY MOUTH IN THE MORNING, AT NOON, AND BEDTIME NEEDED FOR DIZZINESS 30 tablet 1 12/05/19 25 025 Discontinued Active Problems Problem Noted Date [...] 12 units. Pt's daughter will contact her Community Representative. Cannot go higher in the Jard[place] [...] to be done by endocrinology, today glucose [facility] I ordered at office humalog 10U [...] Assessment & Plan (06/17/2023 4:40 PM EST): professional services specialist referral Left arm pain 05/02/2023 Encounter [...] it was related to her mood disorder, amy US of neck done was normal I [...] seems most likely vertigo - following with shoe sprayer ,From cards records -pt had a + [...] AST 34,ALT 59 -EKG 11/2022 NSR, normal ID interval, HR 56x', TWI in lead III [...] falls and episodes of dizziness following with shoe sprayer From cards records -pt had a + [...] Today is 131 -EKG today NSR, normal ID interval, HR 56x', TWI in lead III [...] staff -advised pt to f w her shoe sprayer for ongoing symptoms -I tried calling today pt's shoe sprayer but was not able to reach -will [...] Encounters Date Type Department Care Team Description 02/03/2025 Telephone [facility] [address] [place] [address] Cherrie Gómez MD FYI 01/31/2025 Refill [facility] [address] [place] [address] Cherrie Gómez MD 01/29/2025 Telephone [facility] [address] [place] [address] Cherrie Gómez MD FYI 01/28/2025 Telephone [facility] [address] [place] [address] Cherrie Gómez MD No Show 01/27/2025 Telephone [facility] [address] [place] [address] Cherrie Gómez MD Chart Prep 01/13/2025 Refill [facility] [address] [place] [address] Cherrie Gómez MD Hyperlipidemia associated with type 2 diabetes mellitus ([facility]/HCC) 01/04/2025 Orders Only GENERIC EXTERNAL DATA DEPARTMENT Provider, Generic External Data 01/02/2025 Refill [facility] [address] [place] [address] Cherrie Gómez MD Overactive bladder 12/31/2024 11:15 AM EDT Office Visit [facility] [address] [place] [address] Cherrie Gómez MD Failure to thrive in adult (Primary Dx); Type 2 diabetes mellitus with stage 3 chronic kidney disease, without long-term current use of insulin, unspecified whether stage 3a or 3b CKD ([facility]); Recurrent urinary tract infection; Chronic diastolic heart failure ([facility]); Sick sinus syndrome ([facility]); Depression with anxiety 12/31/2024 Travel 12/29/2024 Telephone [facility] [address] [place] [address] Cherrie Gómez MD Chart Prep 12/23/2024 Telephone [facility] [address] [place] [address] Cherrie Gómez MD FYI 12/23/2024 Telephone [facility] [address] [place] [address] Cherrie Gómez MD Call Back Request 12/22/2024 Telephone [facility] [address] [place] [address] Cherrie Gómez MD ER Follow-up 12/22/2024 Telephone [facility] [address] [place] [address] Cherrie Gómez MD FYI 12/21/2024 Orders Only [facility] [address] [place] [address] Cherrie Gómez MD 12/21/2024 Telephone [facility] [address] [place] [address] Cherrie Gómez MD Call Back Request 12/11/2024 Refill [facility] [address] [place] [address] Cherrie Gómez MD 12/04/2024 Refill [facility] [address] [place] [address] Cherrie Gómez MD 12/03/2024 Refill [facility] [address] [place] [address] Cherrie Gómez MD Anemia, unspecified type 11/30/[address] [address] Cherrie Gómez MD Medication Question 11/17/2024 9:30 AM EDT Office Visit [facility] [address] [place] [phone] Farheen Rojas DDS Dental caries (Primary Dx) 11/09/[address] [address] Audrey Oliveira RN Results 11/08/2024 Results Follow-Up [address] [address] Martha Londono ANP POCT Glucose, POCT HGB A1C, Culture, Urine, Routine 11/06/2024 1:15 PM EDT Office Visit [address] [address] Martha Londono ANP Acute cystitis without hematuria (Primary Dx); Type 2 diabetes mellitus with stage 3 chronic kidney disease, without long-term current use of insulin, unspecified whether stage 3a or 3b CKD ([facility]); Stage 3b chronic kidney disease ([facility]); UTI due to Klebsiella species 11/06/2024 Travel 11/04/2024 Telephone [facility] [address] [place] [address] Cherrie Gómez MD Chart Prep from Last 3 Months Immunizations Immunization Administration [...] 12/31/2024 11:16 AM EDT Plan of Treatment Health Maintenance [...] unspecified whether stage 3a or 3b CKD (CMS/[facility]) CASE PRESENTATION, DETAILED AND EXTENSIVE TREATMENT PLANNING [...] Whole Blood 86 60 - 115 mg/dL [facility] Comment:METER #: [id number] Testing performed in the Endocrinology Department [address] , [address], [facility]. 01/04/2025 3:39 PM EDT 01/04/2025 3:44 PM EDT us Generic External Data Provider LAB BLOOD ORDERAB LES Final Result Performing Organization Address City/State/[facility] Co de Phone Number [facility] [address] [place] [phone] * POCT Glucose (12/31/2024 11:50 AM EDT) Only the most recent of2 resultswithin the time period is included. Glucose Blood, POC 75 60 - 200 mg/dL QC Media Lot # [id number] Lot# Expiration Date [id number] Blood Capillary blood specimen / Unknown 12/31/2024 11:50 AM EDT us Cherrie Paredes MD POINT OF CARE TEST ENTER/EDIT ORDERABLES Edited Result - Final * Culture, Urine, Routine (11/06/2024 2:13 PM EDT) Urine Urine specimen obtained by clean catch procedure / Unknown 11/06/2024 2:13 PM EDT 11/06/2024 4:30 PM EDT Comment:UACC Narrative [facility] - 11/08/2024 8:05 AM EDT Klebsiella pneumoniae Quant > 100,000 cfu/mL Klebsiella pneumoniae: Ampicillin 16(R) Klebsiella pneumoniae: Cefazolin 2(S) Klebsiella pneumoniae: Cefepime <=0.12(S) Klebsiella pneumoniae: Ceftriaxone <=0.25(S) Klebsiella pneumoniae: Ciprofloxacin <=0.06(S) Klebsiella pneumoniae: Gentamicin <=1(S) Klebsiella pneumoniae: Nitrofurantoin 128(R) Klebsiella pneumoniae: Trimethoprim/Sulfamethoxazole <=20(S) Specimen Source: Urine clean catch us Martha SMITH LAB MICROBIOLOGY - GENERAL ORDER STEVEN Final Result [facility] [address] [place] [phone] * (ABNORMAL) POCT HGB A1C (11/06/2024 1:37 PM EDT) Hemoglobin A1C 6.8(A) 4.0 - 6.0 % QC Media Lot # [id number] Lot# Expiration Date [id number] Blood 11/06/2024 1:37 PM EDT us Martha Londono ANP POINT OF CARE TEST ENTER/EDIT OR DERABLES Final Result * Lipid Panel, Standard (10/18/2023 11:32 AM EDT) Triglycerides 84 <150 mg/dL [facility] Comment:Desirable Triglyceri de: less than 150 mg/dLBorderline High Triglyceride 150-199 mg/dLHigh Triglyceride: 200-499 mg/dLVery High Triglyceride: greater than or equal to 5OO mg/dL Cholesterol 101 <200 mg/dL [facility] Comment:Desirable Cholestero l: less than 200 mg/dLBorderline High Cholesterol: 200-239 mg/dLHigh Cholesterol: greater than 239 mg/dL LDL Cholesterol Calculated 35 <100 mg/dL [facility] Comment:Desirable LDL: less than 100 mg/dLNear Optimal/Above Optimal LDL: 110- 129 mg/dLBorderline High LDL: 130-159 mg/dLHigh LDL: 160-189 mg/dLVery High LDL: greater than or equal to 190 mg/dL HDL Cholesterol 50 >40 mg/dL [facility] Comment:Desirable HDL: great er than 40 mg/dL Note: This HDL assay may give artificially low results in patients with liver disease. 10/18/2023 11:3 2 AM EDT 10/18/2023 11:32 AM EDT us Generic External Data Provider LAB BLOOD ORDERAB LES Final Result Performing Organization Address [facility] Co de Phone Number [facility] [address] [place] [address] [phone] * Hepatitis C Antibody with Reflex to HCV, RNA, Quantitative, Real-Time PCR (02/18/2023 4:28 PM EDT) Hepatitis C Antibody Nonreactive Nonreactive [facility] Comment:Antibodies to HCV no t detected; does not exclude early acuteHCV infection. Blood Venous blood specimen / Unknown 02/18/2023 4:28 PM EDT 02/18/2023 5:32 PM EDT us Cherrie Arzate MD LAB BLOOD ORDERAB LES Final Result Performing Organization Address City/[facility]/ZIP Co de Phone Number [facility] [address] [place] [address] [phone] * THINPREP TIS PAP AND HPV [...] has been evaluated with computer assisted technology. [facility] Forming Press Operator: SEE COMMENT [facility] Comment: RXB, CT(ASCP) CT screening location: [place] [address] HPV nRNA E6/E7 Not Detected Not Detected [facility] Comment: Methodology: Cras-Mediated Amplification This assay detects E6/E7 viral messenger RNA (mRNA) from 14 high-risk HPV types (16,18,31,33,35,39,45,51,52,56,58,59,66,68). The analytical performance characteristics of this assay have been determined by [employer]. The modifications have not been cleared or approved by the FDA. This assay has been validated pursuant to the CLIA regulations and is used for clinical purposes. For additional information, please refer to http://education.[employer]/faq/JNX651i8 (This link if provided for information/ educational purposes only.) Interpretation/Re sult: Negative for intraepithelial lesion or malignancy. [facility] LMP: NONE [facility] Prev. BX: NONE [facility] Prev. PAP: NONE [facility] SOURCE: None given [facility] Statement Of Adequacy: SEE COMMENT [facility] Comment: Satisfactory for evaluation. Endocervical/transformation zone component present. 09/14/2021 10:2 2 AM EDT us Cherrie Paredes MD LAB PATHOLOGY ORDERAB LES Final Result [facility] [address] [place] [address], * Mammography Report 1 (08/23/2021 3:30 PM [...] Most Recently Relevant to Health Maintenance Insurance [facility] STANDARD [id number] - [facility] CARE HOME OPTIONS (HMO D-SNP) DENTAL - [facility] Care Teams Formulation Technician Relationship Specialty Start Date End Date Cherrie Gómez MD [address] [place] [phone] PCP - General Family Medicine 11/05/19 [facility] 08/06/19
--- OUTSIDE RECORDS SUMMARY | 2025-02-03 15:30 | XMS_ITS | Encounter Summary ---
Author Organization [employer] Address [address] [facility] 7t [place] [address] Care Team Providers Care Marketing Designer Name Role Phone Cherrie Gómez MD Primary Care Provide r Reason for Visit * Reason Onset Date Comments FYI 10/31/2023 Encounter Details Date Type Department Care Team ([facility] Contact Info) Description 10/31/2023 Telephone [facility] [place] [facility] [address] [place] [address] Cherrie Gómez MD [address] [place] [address] FYI Social History Tobacco Use Types Packs/Day [...] documented as of this encounter Care Teams Marketing Designer Relationship Specialty Start Date End Date Cherrie Gómez MD [address] [place] [address] PCP - General Family Medicine 11/05/19 [facility] 08/06/19 documented as of this encounter
--- OUTSIDE RECORDS SUMMARY | 2025-02-03 15:30 | XMS_ITS | Encounter Summary ---
Author Organization [employer] Address [address] [facility] 7t [place] [address] Care Team Providers Care Graduate Teaching Assistant Name Role Phone Cherrie Gómez MD Primary Care Provide r Reason for Visit * Reason Onset Date Comments Med Refill 09/04/2024 Encounter Details Date Type Department Care Team ([facility] Contact Info) Description 09/04/2024 Telephone [facility] [address] [place] [address] Cherrie Gómez MD [address] [place] [address] Med Refill Social History Tobacco Use Types [...] 600-10 MG-MCG tablet To be sent to: [facility]/pharmacy [address] [place] [address] - [address] [place] [address] documented in this encounter Plan of Treatment Not on file documented as of this encounter Visit Diagnoses Not on filedocumented in this encounter Additional Health Concerns Assessment Noted Time PHQ-9 Depression Total Score: 0 07/14/19 25 2:16 PM EST documented as of this encounter Care Teams Graduate Teaching Assistant Relationship Specialty Start Date End Date Cherrie Gómez MD [address] [place] [phone] PCP - General Family Medicine 11/05/19 [facility] 08/06/19 documented as of this encounter
--- OUTSIDE RECORDS SUMMARY | 2025-02-03 15:30 | XMS_ITS | Clinical Summary ---
Author Organization [facility] Address [address] [place] [address] [address] [place] [phone] Phone Care Team Providers Care Suction Roller Name Role Phone Cherrie Gómez MD Primary [...] 05/02/2023, 07/02/2018, 06/14/2017, Additional history exists Insurance [facility] ([id number]) JOHNNY SAMSON [id number] [place] [id number] [facility] ([id number]) JOHNNY SAMSON [id number] Care Teams Suction Roller Relationship Specialty Start Date End Date Cherrie Gómez MD [address] [place] [address] [place] [phone] PCP - General 05/30/20
--- OUTSIDE RECORDS SUMMARY | 2025-02-03 15:30 | XMS_ITS | Encounter Summary ---
Author Organization [employer] Address [address] [facility] 7t [place] [address] Care Team Providers Care Carton And Can Supply Supervisor Name Role Phone Cherrie Gómez MD Primary Care Provide r Encounter Details Date Type Department Care Team (Latest Contact Info) Description 11/14/2020 [facility] Dental, Provider, DDS Social History Tobacco [...] on filedocumented in this encounter Care Teams Carton And Can Supply Supervisor Relationship Specialty Start Date End Date Cherrie Gómez MD [address] [place] [address] PCP - General Family Medicine 11/05/19 [facility] 08/06/19 documented as of this encounter
--- OUTSIDE RECORDS SUMMARY | 2025-02-03 15:30 | XMS_ITS | Encounter Summary ---
Author Organization [employer] Address [address] [facility] [address] 7[address] [place] [address] Care Team Providers Care Circulation Assistant Name Role Phone Cherrie Gómez MD Primary Care Provide r Encounter Details Date Type Department Care Team ([facility] Contact Info) Description 07/27/2024 Orders Only [facility] [address] [place] [address] Cherrie Gómez MD [address] [place] [address] Social History Tobacco Use Types Packs/Day Years [...] is your housing situation today? I have fol miller 03/04/[address] you [...] documented as of this encounter Care Teams Circulation Assistant Relationship Specialty Start Date End Date Cherrie Gómez MD [address] [place] [phone] PCP - General Family Medicine 11/05/19 [facility] 08/06/19 documented as of this encounter
--- OUTSIDE RECORDS SUMMARY | 2025-02-03 15:30 | XMS_ITS | Encounter Summary ---
Author Organization [employer] Address [address] [place] [address] 7t [place] [address] Care Team Providers Care Photo Producer Name Role Phone Cherrie Gómez MD Primary Care Provide r Encounter Details Date Type Department Care Team ([facility] Contact Info) Description 10/17/2022 [facility] Health Information Management [address] [place] [address] Cherrie Gómez MD [address] [place] [address] Social History Tobacco Use Types Packs/Day Years [...] on filedocumented in this encounter Care Teams Photo Producer Relationship Specialty Start Date End Date Cherrie Gómez MD [address] [place] [phone] PCP - General Family Medicine 11/05/19 [facility] [place] 08/06/19 documented as of this encounter
--- OUTSIDE RECORDS SUMMARY | 2025-02-03 15:30 | XMS_ITS | Encounter Summary ---
Author Organization [employer] Address [address] [facility] 7t [place] [address] Care Team Providers Care Bridge Saw Operator Name Role Phone Cherrie Gómez MD Primary Care Provide r Reason for Visit * Reason Comments Med Refill Encounter Details Date Type Department Care Team ([facility] st Contact Info) Description 01/09/2023 Refill [facility] [address] [place] [address] Cherrie Gómez MD [address] [place] [address] Social History Tobacco Use Types Packs/Day Years [...] documented as of this encounter Care Teams Bridge Saw Operator Relationship Specialty Start Date End Date Cherrie Gómez MD [address] [place] [address] PCP - General Family Medicine 11/05/19 [facility] 08/06/19 documented as of this encounter
--- OUTSIDE RECORDS SUMMARY | 2025-02-03 15:30 | XMS_ITS | Encounter Summary ---
Author Organization [employer] Address [address] [place] [address] 7t [place] [address] Care Team Providers Care Film Critic Name Role Phone Cherrie Gómez MD Primary Care Provide r Encounter Details Date Type Department Care Team ([facility] Contact Info) Description 01/09/2023 [facility] Health Information Management [address] [place] [address] Cherrie Gómez MD [address] [place] [address] Social History Tobacco Use Types Packs/Day Years [...] documented as of this encounter Care Teams Film Critic Relationship Specialty Start Date End Date Cherrie Gómez MD [address] [place] [phone] PCP - General Family Medicine 11/05/19 [facility] 08/06/19 documented as of this encounter
--- OUTSIDE RECORDS SUMMARY | 2025-02-03 15:30 | XMS_ITS | Encounter Summary ---
Author Organization [employer] Address [address] [facility] [address] 7t [place] [address] Care Team Providers Care Launch Leader Name Role Phone Cherrie Gómez MD Primary Care Provide r Encounter Details Date Type Department Care Team ([facility] Contact Info) Description 12/21/2024 Orders Only [facility] [address] [place] [address] Cherrie Gómez MD [address] [place] [address] Social History Tobacco Use Types Packs/Day Years [...] documented as of this encounter Care Teams Launch Leader Relationship Specialty Start Date End Date Cherrie Gómez MD [address] [place] [phone] PCP - General Family Medicine 11/05/19 [facility] 08/06/19 documented as of this encounter
--- OUTSIDE RECORDS SUMMARY | 2025-02-03 15:30 | XMS_ITS | Encounter Summary ---
Author Organization [employer] Address [address] [facility] [address] 7t [place] [address] Care Team Providers Care Surgical Lead Name Role Phone Cherrie Gómez MD Primary Care Provide r Encounter Details Date Type Department Care Team ([facility] Contact Info) Description 05/22/2024 Orders Only [facility] [address] [place] [address] Martha Robertson MD [address] [place] [address] Edema, unspecified type; HOWARD (dyspnea on exertion); [...] documented as of this encounter Care Teams Surgical Lead Relationship Specialty Start Date End Date Cherrie Gómez MD [address] [place] [address] PCP - General Family Medicine 11/05/19 [facility] 08/06/19 documented as of this encounter
--- OUTSIDE RECORDS SUMMARY | 2025-02-03 15:30 | XMS_ITS | Encounter Summary ---
Author Organization [employer] Address [address] [facility] 7t [place] [address] Care Team Providers Care General Manager Name Role Phone Cherrie Gómez MD Primary Care Provide r Reason for Visit * Reason Comments Med Refill Encounter Details Date Type Department Care Team ([facility] st Contact Info) Description 04/23/2022 Refill [facility] [address] [place] [address] Nancy Denny DO [address] [place] [address] Anemia, unspecified type Social History Tobacco Use [...] type documented in this encounter Care Teams General Manager Relationship Specialty Start Date End Date Cherrie Gómez MD [address] [place] [address] PCP - General Family Medicine 11/05/19 [facility] [place] 08/06/19 documented as of this encounter
--- OUTSIDE RECORDS SUMMARY | 2025-02-03 15:30 | XMS_ITS | Encounter Summary ---
Author Organization [employer] Address [address] [facility] 7t [place] [address] Care Team Providers Care Bioprocessing Manufacturing Technician Name Role Phone Cherrie Gómez MD Primary Care Provide r Encounter Details Date Type Department Care Team (Latest Contact Info) Description 08/23/2021 Abstract [facility] CONVERSIONS Dental, Provider, DDS Social [...] on filedocumented in this encounter Care Teams Bioprocessing Manufacturing Technician Relationship Specialty Start Date End Date Cherrie Gómez MD [address] [place] [phone] PCP - General Family Medicine 11/05/19 [facility] 08/06/19 documented as of this encounter
--- OUTSIDE RECORDS SUMMARY | 2025-02-03 15:30 | XMS_ITS | Encounter Summary ---
Author Organization [employer] Address [address] [facility] 7t [place] [address] Care Team Providers Care Weapons And Tactics Instructor Name Role Phone Cherrie Gómez MD Primary Care Provide r Reason for Visit * Reason Onset Date Comments Med Refill 01/06/2024 Encounter Details Date Type Department Care Team ([facility] Contact Info) Description 01/06/2024 Telephone [facility] MEDICINE [address] [place] [address] Cherrie Gómez MD 230 [place] [address] Med Refill Social History Tobacco Use Types [...] 25 MG tablet To be sent to: [facility]/pharmacy #[address] [place] [address] - [address] [place] [address] documented in this encounter Plan of Treatment Not on file documented as of this encounter Visit Diagnoses Not on filedocumented in this encounter Additional Health Concerns Assessment Noted Time PHQ-9 Depression Total Score: 20 023 2:53 PM EST documented as of this encounter Care Teams Weapons And Tactics Instructor Relationship Specialty Start Date End Date Cherrie Gómez MD 230 [place] [address] PCP - General Family Medicine 11/05/19 [facility] 08/06/19 documented as of this encounter
--- OUTSIDE RECORDS SUMMARY | 2025-02-03 15:30 | XMS_ITS | Encounter Summary ---
Author Organization [employer] Address [address] [facility] 7t [place] [address] Care Team Providers Care Monotype Machinist Name Role Phone Cherrie Gómez MD Primary Care Provide r Encounter Details Date Type Department Care Team ([facility] [place] Contact Info) Description 01/29/2023 Telephone [facility] MEDICINE [address] [place], [place] [phone] Cierra Andrade LPN Social History Tobacco Use [...] documented as of this encounter Care Teams Monotype Machinist Relationship Specialty Start Date End Date Cherrie Gómez MD [address] [place] [address] [phone] PCP - General Family Medicine 11/05/19 [facility] 08/06/19 documented as of this encounter
--- OUTSIDE RECORDS SUMMARY | 2025-02-03 15:30 | XMS_ITS | Encounter Summary ---
Author Organization [employer] Address [address] [facility] [address] 7t [place] [address] Care Team Providers Care Naprapath Name Role Phone Cherrie Gómez MD Primary Care Provide r Encounter Details Date Type Department Care Team ([facility] Contact Info) Description 01/06/2024 Telephone [facility] ADULT D[facility]AL 230 [place] [address] Javon Johnson, DDS [address] [place] [address] Social History Tobacco Use Types Packs/Day Years [...] documented as of this encounter Care Teams Naprapath Relationship Specialty Start Date End Date Cherrie Gómez MD [address] [place] [id number] PCP - General Family Medicine 11/05/19 [facility] 08/06/19 documented as of this encounter
--- OUTSIDE RECORDS SUMMARY | 2025-02-03 15:30 | XMS_ITS | Encounter Summary ---
Author Organization [employer] Address [address] [facility] 7t [place] [address] Care Team Providers Care Manager Ems Name Role Phone Cherrie Gómez MD Primary Care Provide r Encounter Details Date Type Department Care Team (Latest Contact Info) Description 01/22/2019 Abstract [facility], Provider, DDS Social [...] on filedocumented in this encounter Care Teams Manager Ems Relationship Specialty Start Date End Date Cherrie Gómez MD [address] [place] [id number] PCP - General Family Medicine 11/05/19 [facility] 08/06/19 documented as of this encounter
--- OUTSIDE RECORDS SUMMARY | 2025-02-03 15:30 | XMS_ITS | Encounter Summary ---
Author Organization [employer] Address [address] [facility] [address] 7t [place] [address] Care Team Providers Care Circus Train Supervisor Name Role Phone Cherrie Gómez MD Primary Care Provide r Reason for Visit * Reason Comments Med Refill Encounter Details Date Type Department Care Team ([facility] st Contact Info) Description 10/19/2022 Refill [facility] 230 [place] [address] Sharon Zaavleta MD 230 [place] [address] Anemia, unspecified type Social History Tobacco Use [...] documented as of this encounter Care Teams Circus Train Supervisor Relationship Specialty Start Date End Date Cherrie Gómez MD 230 [place] [address] PCP - General Family Medicine 11/05/19 [facility] 08/06/19 documented as of this encounter
--- OUTSIDE RECORDS SUMMARY | 2025-02-03 15:30 | XMS_ITS | Encounter Summary ---
Author Organization [employer] Address [address] [address] 7t [place] [address] Care Team Providers Care Palliative Senior Np Name Role Phone Cherrie Gómez MD Primary Care Provide r Reason for Visit * Reason Onset Date Comments Med Refill 06/04/2024 Encounter Details Date Type Department Care Team ([facility] Contact Info) Description 06/04/[address] [facility] MEDICINE 230 [place] [address] Cherrie Gómez MD 230 [place] [address] Med Refill Social History Tobacco Use Types [...] 10:13 AM EST Medication was sent to [facility] #[id number] on 04/13/24 90 day supply with 1 refill. * Telephone Encounter - Jess Lopez - 06/04/2024 9:48 AM EST TC from pt requesting medication refill. Medications needing refill : ferrous sulfate 325 (65 Fe) MG tablet To be sent to: [facility]/pharmacy #[id number] documented in this encounter Plan of Treatment Not on file documented as of this encounter Visit Diagnoses Not on filedocumented in this encounter Additional Health Concerns Assessment Noted Time PHQ-9 Depression Total Score: 20 023 2:53 PM EST documented as of this encounter Care Teams Palliative Senior Np Relationship Specialty Start Date End Date Cherrie Gómez MD [address] [place] [id number] PCP - General Family Medicine 11/05/19 [facility] 08/06/19 documented as of this encounter
== END 2025-02-03 14:58 | disposition home or self-care (01) ==
PROVIDERS: Physician Assistant Medical; Emergency Provider Emergency Medicine
DX: S09.90XA Unspecified injury of head, initial encounter (principal); R51.9 Headache, unspecified; R10.2 Pelvic and perineal pain; M54.2 Cervicalgia; E11.9 Type 2 diabetes mellitus without complications; W01.10XA Fall on same level from slipping, tripping and stumbling with subsequent striking against unspecified object, initial encounter; Y93.9 Activity, unspecified; Y92.9 Unspecified place or not applicable; Z79.899 Other long term (current) drug therapy; Y99.8 Other external cause status; Z11.52 Encounter for screening for COVID-19; Z79.4 Long term (current) use of insulin; Z98.84 Bariatric surgery status
CPT/HCPCS: 36415; 70450; 72125; 72170; 80053; 83735; 85025; 87502; 87635; 99282; 99284

== ENCOUNTER → 2025-02-03 11:50 | Outpatient (BNV) | payer OTHER, SELFPAY | PROVIDERS: Emergency Provider Emergency Medicine; Visit Provider Radiology Diagnostic Radiology | DX: M47.812 Spondylosis without myelopathy or radiculopathy, cervical region (principal); G31.89 Other specified degenerative diseases of nervous system; R10.2 Pelvic and perineal pain | CPT/HCPCS: 70450; 72125; 72170 ==

== ENCOUNTER 2025-02-05 15:34 | Outpatient (AMB) | payer OTHER, SELFPAY ==
--- NOTE | 2025-02-05 15:35 | A.OFFVIS_ITS ---
Vital Signs 02/05/25 15:37 Height 5 ft 3 in Weight 169 lb 1.513 oz BMI 30.0 BP 106/58 L Blood Pressure Location Lt brachial Position Sitting Pulse 60 Pulse Source Pulse Oximeter Pulse Oximetry (%) 95 Oxygen Delivery Method Room Air Intake Visit Reasons: T2DM Intake Note: Patient present today for Type 2 Diabetes Mellitus Last Diabetic eye exam: 02/2024 Last Podiatry Visit: Does not see a Computer Technical Support Specialist Random Glucose: 239 mg/dl HgA1C: 6.9% 01/04/25 Cosmetics Counter Manager Required: Yes Cosmetics Counter Manager Language: Players Assistant Services: Cosmetics Counter Manager Offered & Declined Cosmetics Counter Manager Name: Daughter Information Interpreted: non-clinical & clinical Accompanied by: Daughter Allergies [email or web address] Adverse Reaction (Intermediate, Verified 02/05/25 15:38) uti Medication List - Last Reconciled 02/05/25 by Janel Lozada PA-C alum-mag hydroxide-simeth 400-400-40 mg/5 mL (Mylanta Maximum Strength) 10 mL PO QID PRN amlodipine 5 mg PO DAILY aspirin (Adult Aspirin Regimen) 81 mg PO DAILY atorvastatin 80 mg PO BEDTIME blood sugar diagnostic (FreeStyle Lite Strips) 2times a day blood-glucose meter (FreeStyle Lite Meter kit) Twice a day blood-glucose sensor (FreeStyle Zunilda 3 Plus Sensor device) As directed for coninuous use change every 15 days blood-glucose,assurance manager insurance,cont (FreeStyle Zunilda 3 [employer]) As directed bupropion HCl XL (Wellbutrin XL) 150 mg PO DAILY calcium carbonate-vitamin D3 600 mg-10 mcg (400 unit) 1 tab PO BID cholecalciferol (vitamin D3) 50 mcg PO DAILY [diabetic shoes extra depth orthopedic shoes ( 1 pair ) with customize heat molded multi density inner soles ( 3 pair) Dispense 1 Sig: As directed DX: And IDDM /polyneuropathy ( E11 0.42 ); hammertoe foot deformity ( M 20.41, and 20.42 ) pre ulcerative skin lesion ( L 85.1 ) Diagnosis ( E11 0.42 ) type 2 diabetes with polyneuropathy] [diabetic shoes extra depth orthopedic shoes ( 1 pair ) with customize heat molded multi density inner soles ( 3 pair) Dispense 1 Sig: As directed DX: And IDDM /polyneuropathy ( E11 0.42 ); hammertoe foot deformity ( M 20.41, and 20.42 ) pre ulcerative skin lesion ( L 85.1 ) Diagnosis ( E11 0.42 ) type 2 diabetes with polyneuropathy] escitalopram oxalate 20 mg PO DAILY ferrous sulfate 325 mg PO BID flecainide 50 mg PO Q12H furosemide 20 mg PO DAILY gabapentin 300 mg PO BEDTIME glucose (Dex4 Glucose) 16 grams (4 x 4 gram) PO Q15M PRN 30 days MDD 16 tablets insulin syringe-needle U-100 As directed twice daily NS lancets (FreeStyle Lancets) As directed loperamide 2 mg PO Q6H PRN meclizine 25 mg PO DAILY PRN metformin 1,000 mg PO BID 90 days metoclopramide HCl 5 mg PO QID metoprolol succinate ER 25 mg PO DAILY multivitamin 1 tab PO DAILY oxybutynin chloride 5 mg PO BID simethicone (Gas Relief (simethicone)) 125 mg PO BID-QID PRN trazodone 100 mg PO BEDTIME PRN HPI HPI T2DM: Details: Patient is 69-year-old female with DM type 2 diagnosed 1989 who presents for f/u diabetes visit. Previously following with my colleague. She has a significant past medical history of celiac disease, pacemaker, CHF, CKD stage 3, PAF, dyslipidemia, hypertension, memory impairment with a history of a subdural hematoma and insulin-dependent type 2 diabetes. She is accompanied today by her daughter who helps with translation Endo: Dm-A1c was 6.9. She is currently on Lantus 20 units , metformin 1000 mg twice a day. -Actos was stopped between the last visit and now due to low blood sugars and I had reduced the Lantus further to 20. -she states that she is still having low blood sugars overnight. Daughter states that in the morning she is often drinking juice to elevate your blood sugars and then they go up to 200. She has reduce the Lantus to 15 units in his stool at times developing low blood sugars. Daughter states that patient tries to lose weight and does not eat as much as she probably should. -She previously had been on acarbose and Jardiance. She has had multiple klebsiella + uti's in the past. She has gastroparesis on multiple agents and GLP 1 agonists are contraindicated. Humalog mix caused frequent low bs. cgm-sensor fell off Hypoglycemia: Reports more frequent low sugars recently Hyperglycemia: denies polyuria, denies polydypsia Diet: eats what she wants does eat conc sweets Issues with memory. She has history of prior fall with subdural hematoma. She attends a day program. [facility] contact: [facility] [phone] CV: Blood pressure today in the office is 106/58. She is currently on amlodipine 5 mg daily, metoprolol 25 mg daily. Cholesterol has been managed with atorvastatin 80 mg. [facility] Medical History Diabetes mellitus type 2, insulin dependent Diastolic dysfunction Hypertension CKD stage 3 secondary to diabetes Gastroparesis due to secondary diabetes Bradycardia Burning with urination Encounter for monitoring anti-arrhythmic therapy Essential hypertension Abdominal bloating Small intestinal bacterial overgrowth Nausea and vomiting Dysphagia Periumbilical abdominal pain Globus sensation Orthostatic hypotension Presence of Watchman left atrial appendage closure device Subdural hematoma Syncope and collapse PAF (paroxysmal atrial fibrillation) Vitamin D deficiency Anxiety Depression Overweight (BMI 25.0-29.9) Dyslipidemia Non-toxic multinodular goiter Diabetic polyneuropathy associated with type 2 diabetes mellitus Diabetic retinopathy associated with type 2 diabetes mellitus Diabetes type 2, controlled Surgical History Hx of breast reduction, elective History of cholecystectomy H/O esophagogastroduodenoscopy Hx of colonoscopy History of gastric bypass History of gastric bypass Hx of hand surgery Family History Father CVD (cardiovascular disease) Mother Diabetes Social History Household Members: Spouse Alcohol intake: never Patient Tobacco Use Status: Former Tobacco user Tobacco use type: Cigarette Physical Exam Const Orientation/consciousness: patient oriented x3 HEENT Ears: hearing grossly normal bilaterally Neck Thyroid: Thyroid normal Lymphatic: no lymphadenopathy noted Resp Auscultation: clear to auscultation bilaterally Cardio Rate: regular rate Rhythm: regular rhythm Heart sounds: S1 normal heart sound present and S2 normal heart sound present Skin General skin exam: no rashes or lesions noted Neuro General: patient oriented x3, gait normal and no focal motor deficits Results Reviewed Results Reviewed: Laboratory Tests 10/18/23 02/03/25 11:22 12:55 Creatinine 1.42 H Estim Creat Clear Calc 35.5 Estimated GFR 37 AST 29 ALT 33 H Urine Creatinine 81.36 Urine Microalbumin 9.0 Microalb/Creat Ratio 11.0 Assessment & Plan Assessment & Plan (1) Diabetes mellitus type 2, insulin dependent: Code(s): E11.9 - Type 2 diabetes mellitus without complications; Z79.4 - [facility] (current) use of insulin Category: Medical Plan: pause Lantus at this point as she has been using 15 units and still developing low blood sugars Continue metformin 1000 mg twice a day Patient has been trying to eat healthier and work on weight loss on her own. (2) Hypertension: Code(s): I10 - Essential (primary) hypertension Category: Medical Plan: Continue current regimen Patient Instructions: stop lantus for now continue metformin f/u in 1 month or sooner if needed Coding Level of Care Code Est Pt Level 4 (27462) Complex EM visit Add On G2211 Diagnoses Diabetes mellitus type 2, insulin dependent E11.9; Z79.4 Hypertension I10
--- OUTSIDE RECORDS SUMMARY | 2025-02-05 15:35 | XMS_ITS | Encounter Summary ---
Author Organization [employer] Address [address] [facility] 7t [place] [address] Care Team Providers Care Liability Claims Adjuster Name Role Phone Cherrie Gómez MD Primary Care Provide r Reason for Visit * Reason Onset Date Comments Hospital Follow-up 05/06/2024 Encounter Details Date Type Department Care Team ([facility] Contact Info) Description 05/06/2024 Telephone [facility] MEDICINE 230 [place] [address] Cherrie Gómez MD 230 [place] [address] Hospital Follow-up Social History Tobacco Use Types [...] daughter, MAYURI, reports Pt was seen in [facility] ED 05/06/24 for UTI. Pt didn't have [...] prior to booking. Will request information from [facility] visit 05/06/24 be obtained for chart. Protocol [...] 05/06/2024 2:05 PM EST Triage call with [facility] historical interpreter , [place] [address]. Call to [phone] no answer, voice mail message left to call [facility] [phone]. Call to [phone], no answer. Left voice message to call [facility] [phone] * Telephone Encounter - Sincere Chang - 05/06/2024 12:09 PM EST Tc from pt requesting a HDF appt. Hospital: [facility] Date of admission: 05/06/2024 Discharge date: 05/06/2024 Diagnosed: UTI *Send message to [facility] Coordinators documented in this encounter Plan of Treatment Upcoming Encounters Date Type Department Care Team (Late st Contact Info) Description 02/10/2025 2:15 PM EDT Telemedicine [facility] MEDICINE [address] [place] [address] Cherrie Gómez MD 230 [place] [address] documented as of this encounter Visit Diagnoses Not on filedocumented in this encounter Additional Health Concerns Assessment Noted Time PHQ-9 Depression Total Score: 20 023 2:53 PM EST documented as of this encounter Care Teams Liability Claims Adjuster Relationship Specialty Start Date End Date Cherrie Gómez MD [address] [place] [address] [phone] PCP - General Family Medicine 11/05/19 [facility] 08/06/19 documented as of this encounter
--- OUTSIDE RECORDS SUMMARY | 2025-02-05 15:36 | XMS_ITS | Encounter Summary ---
Author Organization [employer] Address [address] [facility] [address] [place] [address] Care Team Providers Care Batch And Furnace Manager Name Role Phone Cherrie Gómez MD Primary Care Provide r Reason for Visit * Reason Onset Date Comments Med Refill 08/15/2023 Encounter Details Date Type Department Care Team ([facility] Contact Info) Description 08/15/2023 Telephone [facility] MEDICINE 230 [place] [address] Cherrie Gómez MD 230 [place] [address] Med Refill Social History Tobacco Use Types [...] 25 MG tablet To be sent to: [facility]/PHARMACY [address] [place] [address] documented in this encounter Plan of Treatment Upcoming Encounters Date Type Department Care Team (Late st Contact Info) Description 02/10/2025 2:15 PM EDT Telemedicine [facility] MEDICINE [address] [place] [address] Cherrie Gómez MD [address] [place] [address] documented as of this encounter Visit Diagnoses Not on filedocumented in this encounter Additional Health Concerns Assessment Noted Time PHQ-9 Depression Total Score: 20 023 2:53 PM EST documented as of this encounter Care Teams Batch And Furnace Manager Relationship Specialty Start Date End Date Cherrie Gómez MD 230 [place] [address] PCP - General Family Medicine 11/05/19 [facility] 08/06/19 documented as of this encounter
--- OUTSIDE RECORDS SUMMARY | 2025-02-05 15:36 | XMS_ITS | Encounter Summary ---
Author Organization [employer] Address [address] [facility] [address] [place] [address] Care Team Providers Care Propagation Worker Name Role Phone Cherrie Gómez MD Primary Care Provide r Encounter Details Date Type Department Care Team ([facility] Contact Info) Description 05/09/2023 Abstract [facility] ADULT DENTAL 230 [place] [address] Farheen Rojas, DDS [address] [place] [address] Social History Tobacco Use Types Packs/Day Years [...] Info) Description 02/10/2025 2:15 PM EDT Telemedicine [facility] MEDICINE [address] [place] [address] Cherrie Gómez MD 230 [place] [address] documented as of this encounter Visit Diagnoses Not on filedocumented in this encounter Additional Health Concerns Assessment Noted Time PHQ-9 Depression Total Score: 20 023 2:53 PM EST documented as of this encounter Care Teams Propagation Worker Relationship Specialty Start Date End Date Cherrie Gómez MD [address] [place] [address] PCP - General Family Medicine 11/05/19 [facility] 08/06/19 documented as of this encounter
--- OUTSIDE RECORDS SUMMARY | 2025-02-05 15:36 | XMS_ITS | Encounter Summary ---
Author Organization [employer] Address [address] [place] [address] 7t [place] [address] Care Team Providers Care Junior Systems Analyst Name Role Phone Cherrie Gómez MD Primary Care Provide r Encounter Details Date Type Department Care Team ([facility] Contact Info) Description 10/17/2022 [facility] Health Information Management 230 [place] [address] Cherrie Gómez MD [address] [place] [address] Social History Tobacco Use Types Packs/Day Years [...] Info) Description 02/10/2025 2:15 PM EDT Telemedicine [facility] MEDICINE [address] [place] [address] Cherrie Gómez MD 230 [place] [address] documented as of this encounter Visit Diagnoses Not on filedocumented in this encounter Care Teams Junior Systems Analyst Relationship Specialty Start Date End Date Cherrie Gómez MD 230 [place], [place] [phone] PCP - General Family Medicine 11/05/19 [facility] 08/06/19 documented as of this encounter
--- OUTSIDE RECORDS SUMMARY | 2025-02-05 15:36 | XMS_ITS | Encounter Summary ---
Author Organization [employer] Address [address] [facility] 7t [place] [address] Care Team Providers Care Assault Amphibious Vehicle Crewman Name Role Phone Cherrie Gómez MD Primary Care Provide r Encounter Details Date Type Department Care Team (Latest Contact Info) Description 08/23/2021 Abstract [facility] CONVERSIONS Dental, Provider, DDS Social History [...] Info) Description 02/10/2025 2:15 PM EDT Telemedicine [facility] MEDICINE [address] [place] [address] Cherrie Gómez MD [address] [place] [address] documented as of this encounter Visit Diagnoses Not on filedocumented in this encounter Care Teams Assault Amphibious Vehicle Crewman Relationship Specialty Start Date End Date Cherrie Gómez MD [address] [place] [address] PCP - General Family Medicine 11/05/19 [facility] 08/06/19 documented as of this encounter
--- OUTSIDE RECORDS SUMMARY | 2025-02-05 15:36 | XMS_ITS | Clinical Summary ---
Author Organization [address] [place] [address] Address [address] [place] [address] Phone Care Team Providers Care Steel Unloader Name Role Phone Cherrie Gómez MD Primary Care Provide r Surgical History Surgery Date Site/Laterality Comments GASTRIC BYPASS PROCEDURE: GASTRIC BYPASS FOR OBESIT ABDOMINAL SURGERY PROCEDURE: HISTORICAL ABDOMINAL SURGERY BREAST REDUCTION PROCEDURE: [place] BREAST REDUCTION CHOLECYSTECTOMY PROCEDURE: [place] CHOLECYSTECTOMY FOOT SURGERY PROCEDURE: HISTORICAL FOOT SURGERY; COMMENT: right foot,little toe Medical History Medical History Date Comments Diabetes mellitus ([facility] V 24, CMS/HCC V28) DX:Diabetes mellitus (HCC) [...] patient's age to complete this topic Insurance [facility] MEDICARE Member Subscriber Plan / Payer (Ef fective 2024-Present) Name:Dana Winter Relation to Subscriber:Self Name:Dana Winter Payer ID:[id number] Group ID:[id number] Type:Not on file Address: [address] [place] [address] MEDICAID - [place] Care Teams Steel Unloader Relationship Specialty Start Date End Date Cherrie Gómez MD [address] [place] [phone] PCP - General Internal Medicine 08/04/24
--- OUTSIDE RECORDS SUMMARY | 2025-02-05 15:36 | XMS_ITS | Encounter Summary ---
Author Organization [employer] Address [address] 7[address] [place] [address] Care Team Providers Care Custom Applicator Name Role Phone Cherrie Gómez MD Primary Care Provide r Encounter Details Date Type Department Care Team ([facility] [address] Contact Info) Description 03/07/2023 Telephone [facility] MEDICINE [address] [place] [address] Cherrie Gómez MD [address] [place], [place] [phone] Social History Tobacco Use Types Packs/Day Years [...] Info) Description 02/10/2025 2:15 PM EDT Telemedicine [facility] MEDICINE [address] [place] [phone] Cherrie Gómez MD [address] [place] [address] [phone] documented as of this encounter Visit Diagnoses Not on filedocumented in this encounter Additional Health Concerns Assessment Noted Time PHQ-9 Depression Total Score: 16 023 11:35 AM EDT documented as of this encounter Care Teams Custom Applicator Relationship Specialty Start Date End Date Cherrie Gómez MD [address] [place] [address] [phone] PCP - General Family Medicine 11/05/19 [facility] 08/06/19 documented as of this encounter
--- OUTSIDE RECORDS SUMMARY | 2025-02-05 15:36 | XMS_ITS | Encounter Summary ---
Author Organization [employer] Address [address] 7[address] [place] [address] Care Team Providers Care Curtain Drier Name Role Phone Cherrie Gómez MD Primary Care Provide r Reason for Visit * Reason Onset Date Comments Med Refill 06/17/2023 Encounter Details Date Type Department Care Team ([facility] Contact Info) Description 06/17/2023 Telephone [facility] MEDICINE [address] [place] [address] Cherrie Gómez MD [address] [place] [address] Med Refill Social History Tobacco Use Types [...] be sent to: [facility]/pharmacy #[id number] [place] [address] - [address] [place] [phone] documented in this encounter Plan of Treatment Upcoming Encounters Date Type Department Care Team (Late st Contact Info) Description 02/10/2025 2:15 PM EDT Telemedicine [facility] MEDICINE [address] [place], [place] [phone] Cherrie Gómez MD [address] [place], [place] [phone] documented as of this encounter Visit Diagnoses Not on filedocumented in this encounter Additional Health Concerns Assessment Noted Time PHQ-9 Depression Total Score: 20 023 2:53 PM EST documented as of this encounter Care Teams Curtain Drier Relationship Specialty Start Date End Date Cherrie Gómez MD [address] [place] [address] PCP - General Family Medicine 11/05/19 [facility] 08/06/19 documented as of this encounter
--- OUTSIDE RECORDS SUMMARY | 2025-02-05 15:36 | XMS_ITS | Encounter Summary ---
Author Organization [employer] Address [address] [facility] [address] 7t [place] [address] Care Team Providers Care Dress Shoe Inspector Name Role Phone Cherrie Gómez MD Primary Care Provide r Encounter Details Date Type Department Care Team ([facility] Contact Info) Description 04/13/2024 Telephone [facility] MEDICINE [address] [place] [address] Cherrie Gómez MD [address] [place], [place] [phone] Social History Tobacco Use Types Packs/Day Years [...] Info) Description 02/10/2025 2:15 PM EDT Telemedicine [facility] MEDICINE [address] [place] [address] Cherrie Gómez MD [address] [place] [address] documented as of this encounter Visit Diagnoses Not on filedocumented in this encounter Additional Health Concerns Assessment Noted Time PHQ-9 Depression Total Score: 20 023 2:53 PM EST documented as of this encounter Care Teams Dress Shoe Inspector Relationship Specialty Start Date End Date Cherrie Gómez MD [address] [place] [phone] PCP - General Family Medicine 11/05/19 [facility] 08/06/19 documented as of this encounter
--- OUTSIDE RECORDS SUMMARY | 2025-02-05 15:36 | XMS_ITS | Encounter Summary ---
Author Organization [employer] Address [address] [facility] [address] [place] [address] Care Team Providers Care Malt Roaster Name Role Phone Cherrie Gómez MD Primary Care Provide r Encounter Details Date Type Department Care Team ([facility] Contact Info) Description 01/06/[address] [facility] ADULT DENTAL [address] [place] [address] Javon Johnson, DDS [address] [place] [address] Social History Tobacco Use Types Packs/Day Years [...] 02/10/2025 2:15 PM EDT Telemedicine [facility] MEDICINE [address] [place] [address] Cherrie Gómez MD [address] [place] [address] documented as of this encounter Visit Diagnoses Not on filedocumented in this encounter Additional Health Concerns Assessment Noted Time PHQ-9 Depression Total Score: 20 023 2:53 PM EST documented as of this encounter Care Teams Malt Roaster Relationship Specialty Start Date End Date Cherrie Gómez MD [address] [place] [address] PCP - General Family Medicine 11/05/19 [facility] 08/06/19 documented as of this encounter
--- OUTSIDE RECORDS SUMMARY | 2025-02-05 15:36 | XMS_ITS | Encounter Summary ---
Author Organization [employer] Address [address] [facility] [facility] [address] 7[address] [place] [address] Care Team Providers Care Corporate Development Analyst Name Role Phone Cherrie Gómez MD Primary Care Provide r Reason for Visit * Reason Comments Med Refill Encounter Details Date Type Department Care Team ([facility] st Contact Info) Description 05/17/2023 Refill [facility] MEDICINE [address] [place] [address] Cherrie Gómez MD [address] [place] [address] Type 2 diabetes mellitus without complications (CMS/HCC) [...] Info) Description 02/10/2025 2:15 PM EDT Telemedicine [facility] MEDICINE [address] [place] [address] Cherrie Gómez MD [address] [place] [address] documented as of this encounter Visit Diagnoses Diagnosis Type 2 diabetes mellitus without complications (CMS/HCC) documented in this encounter Additional Health Concerns Assessment Noted Time PHQ-9 Depression Total Score: 20 023 2:53 PM EST documented as of this encounter Care Teams Corporate Development Analyst Relationship Specialty Start Date End Date Cherrie Gómez MD [address] [place] [address] PCP - General Family Medicine 11/05/19 [facility] 08/06/19 documented as of this encounter
--- OUTSIDE RECORDS SUMMARY | 2025-02-05 15:36 | XMS_ITS | Encounter Summary ---
Author Organization [employer] Address [address] [facility] 7t [place] [address] Care Team Providers Care Maxillofacial Prosthetics Dentist Name Role Phone Cherrie Gómez MD Primary Care Provide r Reason for Visit * Reason Onset Date Comments FYI 01/29/2025 Encounter Details Date Type Department Care Team ([facility] Contact Info) Description 01/29/2025 Telephone [facility] MEDICINE [address] [place] [address] Cherrie Gómez MD [address] [place] [address] FYI Social History Tobacco Use Types Packs/Day [...] AM EDT TC placed to pt. At [phone], received message the person you are calling can not receive callsat this time. TC placed to daughter at [phone] (on HIPAA) for status check after fall, no answer, left VM requesting call back to Red Team RN Upon receipt of message. Pt/ daughter to f/up prn * Telephone Encounter - Rock Muller - 01/29/2025 10:53 AM EDT [facility], reporting that the patient had a fall today. Patient slipped and fell on buttocks due to sandals. Patient denies injury, pain, or dizziness No visible bruising Vitals Normal Blood sugar level normal documented in this encounter Plan of Treatment Upcoming Encounters Date Type Department Care Team (Late st Contact Info) Description 02/10/2025 2:15 PM EDT Telemedicine [facility] MEDICINE [address] [place] [address] Cherrie Gómez MD [address] [place] [address] documented as of this encounter Visit Diagnoses Not on filedocumented in this encounter Additional Health Concerns Assessment Noted Time PHQ-9 Depression Total Score: 0 07/14/19 25 2:16 PM EST documented as of this encounter Care Teams Maxillofacial Prosthetics Dentist Relationship Specialty Start Date End Date Cherrie Gómez MD [address] [place] [phone] PCP - General Family Medicine 11/05/19 [facility] 08/06/19 documented as of this encounter
--- OUTSIDE RECORDS SUMMARY | 2025-02-05 15:36 | XMS_ITS | Clinical Summary ---
Author Organization [facility] Address [address] [facility] [address] [place] [address] Phone Care Team Providers Care Poultry Farm Worker Name Role Phone Cherrie Gómez MD [...] Active ferrous sulfate 325 mg (65 mg [place]) tablet Take 325 mg by mouth [...] file Insurance MEDICARE PART A & B [facility] MEDICARE REPLACEMENT MEDICARE PART A & B Member Subscriber Plan / Payer (Ef fective 2023-Present) Name:Dana Winter Member ID:[id number] Relation to Subscriber:Self Name:Dana Winter Subscriber ID:[id number] Payer ID:[id number] Group ID:Not on file Type:Medicare Address: [employer] [address] MEDICARE REPLACEMENT MEDICARE PART A & B Member Subscriber Plan / Payer (Ef fective 2023-Present) Name:Dana Winter Member ID:[id number] Relation to Subscriber:Self Name:Dana Winter Subscriber ID:[id number] Payer ID:[id number] Group ID:Not on file Type:Medicare Address: [employer] [address] [place] [id number] [facility] MEDICARE REPLACEMENT MEDICARE PART A & B Member Subscriber Plan / Payer (Ef fective 2023-Present) Name:Dana Winter Member ID:[id number] Relation to Subscriber:Self Name:Dana Winter Subscriber ID:[id number] Payer ID:[id number] Group ID:Not on file Type:Medicare Address: [employer] [address] [place] [id number] [place] [address] MEDICARE REPLACEMENT [place] [id number] MEDICARE PART A & B [facility] MEDICARE REPLACEMENT MEDICARE PART A & B [facility] MEDICARE REPLACEMENT Care Teams Poultry Farm Worker Relationship Specialty Start Date End Date Cherrie Gómez MD [address] [place] [phone] PCP - General Internal Medicine 08/01/23 Additional Source Comments The information contained in this document represents components of the legal health record. It is not the complete legal health record[facility]
--- OUTSIDE RECORDS SUMMARY | 2025-02-05 15:36 | XMS_ITS | Clinical Summary ---
Author Organization [employer] Address [address] [facility] 7t [place] [address] Care Team Providers Care Postmaster Name Role Phone Cherrie Gómez MD Primary [...] unspecified whether stage 3a or 3b CKD ([facility]) USE WITH INSULIN ONCE DAILY at bed [...] unspecified whether stage 3a or 3b CKD ([facility]) Inject 20 Units under the skin in [...] unspecified whether stage 3a or 3b CKD ([facility]) USE TO TEST BLOOD SUGAR 3 TIMES [...] 12 units. Pt's daughter will contact her Clothing Consultant. Cannot go higher in the Jard[place] pt [...] to be done by endocrinology, today glucose [facility] I ordered at office humalog 10U - [...] Assessment & Plan (06/17/2023 4:40 PM EST): payroll tax specialist referral Left arm pain 05/02/2023 Encounter [...] seems most likely vertigo - following with manager neonatal ,From cards records -pt had a + [...] AST 34,ALT 59 -EKG 11/2022 NSR, normal DE interval, HR 56x', TWI in lead III [...] falls and episodes of dizziness following with manager neonatal From cards records -pt had a + [...] Today is 131 -EKG today NSR, normal DE interval, HR 56x', TWI in lead III [...] staff -advised pt to f w her manager neonatal for ongoing symptoms -I tried calling today pt's manager neonatal but was not able to reach -will [...] Encounters Date Type Department Care Team Description 02/04/2025 Telephone [facility] MEDICINE [address] [place] [phone] Cherrie Gómez MD ER Follow-up 02/04/2025 Telephone [facility] MEDICINE [address] [place] [address] 01313 Cherrie Gómez MD Nurse Triage 02/03/2025 Telephone [facility] MEDICINE [address] [place] [address] [phone] Cherrie Gómez MD FYI 01/31/2025 Refill [facility] MEDICINE [address] [place] [address] Cherrie Gómez MD 01/29/2025 Telephone [facility] MEDICINE [address] [place] [address] Cherrie Gómez MD FYI 01/28/2025 Telephone [facility] MEDICINE [address] [place] [address] [phone] Cherrie Gómez MD No Show 01/27/2025 Telephone [facility] MEDICINE [address] [place] [address] Cherrie Gómez MD Chart Prep 01/13/2025 Refill [facility] MEDICINE [address] [place] [address] Cherrie Gómez MD Hyperlipidemia associated with type 2 diabetes mellitus (CMS/HCC) 01/04/2025 Orders Only GENERIC EXTERNAL DATA DEPARTMENT Provider, Generic External Data 01/02/2025 Refill [facility] MEDICINE [address] [place] [address] Cherrie Gómez MD Overactive bladder 12/31/2024 11:15 AM EDT Office Visit [facility] MEDICINE [address] [place] [address] [phone] Cherrie Gómez MD Failure to thrive in adult (Primary Dx); Type 2 diabetes mellitus with stage 3 chronic kidney disease, without long-term current use of insulin, unspecified whether stage 3a or 3b CKD (CMS/HCC); Recurrent urinary tract infection; Chronic diastolic heart failure (CMS/HCC); Sick sinus syndrome (CMS/HCC); Depression with anxiety 12/31/2024 Travel 12/29/2024 Telephone [facility] MEDICINE [address] [place] [address] Cherrie Gómez MD Chart Prep 12/23/2024 Telephone [facility] MEDICINE [address] [place] [address] 407[address] Cherrie Gómez MD FYI 12/23/2024 Telephone [facility] MEDICINE [address] [place] [address] 353[address] Cherrie Gómez MD Call Back Request 12/22/2024 Telephone [facility] MEDICINE [address] [place] [address] 50124 Cherrie Gómez MD ER Follow-up 12/22/2024 Telephone [facility] MEDICINE [address] [place] [address] Cherrie Gómez MD FYI 12/21/2024 Orders Only [facility] MEDICINE [address] [place] [address] 60[address] Cherrie Gómez MD 12/21/2024 Telephone [facility] MEDICINE [address] [place] [address]30 Cherrie Gómez MD Call Back Request 12/11/2024 Refill [facility] MEDICINE [address] [place] [address] 079[address] Cherrie Gómez MD 12/04/2024 Refill [facility] MEDICINE [address] [place] [address] 09952 Cherrie Gómez MD 12/03/2024 Refill [facility] MEDICINE [address] [place] [address] Cherrie Gómez MD Anemia, unspecified type 11/30/[address] [address] Cherrie Gómez MD Medication Question 11/17/2024 9:30 AM EDT Office Visit [facility] ADULT DENTAL [address] [place] [phone] Ferro-HerreraRashiFarheen, DDS Dental caries (Primary Dx) 11/09/[address] [address] Audrey Oliveira RN Results 11/08/2024 Results Follow-Up [address] [address] Martha Londono ANP POCT Glucose, POCT HGB A1C, Culture, Urine, Routine 11/06/2024 1:15 PM EDT Office Visit [address] [address] Martha Londono ANP Acute cystitis without hematuria (Primary Dx); Type 2 diabetes mellitus with stage 3 chronic kidney disease, without long-term current use of insulin, unspecified whether stage 3a or 3b CKD ([facility]/HCC); Stage 3b chronic kidney disease ([facility]/HCC); UTI due to Klebsiella species 11/06/2024 Travel from Last 3 Months Immunizations Immunization Administration [...] Info) Description 02/10/2025 2:15 PM EDT Telemedicine [facility] MEDICINE [address] [place] [address] Cherrie Gómez MD [address] [place], [place] [phone] Health Maintenance Due Date Last Done Comments [...] unspecified whether stage 3a or 3b CKD ([facility]) CASE PRESENTATION, DETAILED AND EXTENSIVE TREATMENT PLANNING [...] unspecified whether stage 3a or 3b CKD ([facility]) PANORAMIC RADIOGRAPHIC IMAGE Routine 02/05/2024 8:00 AM [...] PCR Routine 02/18/2023 4:28 PM EDT Thrombocytopenia (CMS/[facility]) THINPREP IMAGING PAP AND HPV MRNA E6/E7 WITH REFLEX TO HPV 16,18/45 Routine 09/14/2021 10:22 AM EDT MAMMOGRAM GENERIC Routine 08/23/2021 3:3 0 PM EDT from Last 3 Months or Most Recently Relevant to Health Maintenance Results * Glucose, Whole Blood (01/04/2025 3:39 PM EDT) Glucose, Whole Blood 86 60 - 115 mg/dL [facility] Comment:METER #: [id number] Testing performed in the Endocrinology Department [address] , [address], [facility]. 01/04/2025 3:3 9 PM EDT 01/04/2025 3:44 PM EDT us Generic External Data Provider LAB BLOOD ORDERAB LES Final Result [facility] [address] [place] [phone] * POCT Glucose (12/31/2024 11:50 AM EDT) Only the most recent of2 resultswithin the time period is included. Glucose Blood, POC 75 60 - 200 mg/dL QC Media Lot # [id number] Lot# Expiration Date Blood Capillary blood specimen / Unknown 12/31/2024 11:50 AM EDT Cherrie Paredes MD POINT OF CARE TEST ENTER/EDIT ORDERABLES Edited Result - Final * Culture, Urine, Routine (11/06/2024 2:13 PM EDT) Urine Urine specimen obtained by clean catch procedure / Unknown 11/06/2024 2:13 PM EDT 11/06/2024 4:30 PM EDT Comment:UACC Narrative [facility] - 11/08/2024 8:05 AM EDT Klebsiella pneumoniae Quant > 100,000 cfu/mL Klebsiella pneumoniae: Ampicillin 16(R) Klebsiella pneumoniae: Cefazolin 2(S) Klebsiella pneumoniae: Cefepime <=0.12(S) Klebsiella pneumoniae: Ceftriaxone <=0.25(S) Klebsiella pneumoniae: Ciprofloxacin <=0.06(S) Klebsiella pneumoniae: Gentamicin <=1(S) Klebsiella pneumoniae: Nitrofurantoin 128(R) Klebsiella pneumoniae: Trimethoprim/Sulfamethoxazole <=20(S) Specimen Source: Urine clean catch us Martha SMITH LAB MICROBIOLOGY - GENERAL ORDER STEVEN Final Result [facility] [address] [place] [phone] * (ABNORMAL) POCT HGB A1C (11/06/2024 1:37 PM EDT) Hemoglobin A1C 6.8(A) 4.0 - 6.0 % QC Media Lot # [id number] Lot# Expiration Date Blood 11/06/2024 1:37 PM EDT us Martha SMITH POINT OF CARE TEST ENTER/EDIT OR DERABLES Final Result * Lipid Panel, Standard (10/18/2023 11:32 AM EDT) Triglycerides 84 <150 mg/dL [facility] Comment:Desirable Triglyceri de: less than 150 mg/dLBorderline High Triglyceride 150-199 mg/dLHigh Triglyceride: 200-499 mg/dLVery High Triglyceride: greater than or equal to 5OO mg/dL Cholesterol 101 <200 mg/dL [facility] Comment:Desirable Cholestero l: less than 200 mg/dLBorderline High Cholesterol: 200-239 mg/dLHigh Cholesterol: greater than 239 mg/dL LDL Cholesterol Calculated 35 <100 mg/dL [facility] Comment:Desirable LDL: less than 100 mg/dLNear Optimal/Above Optimal LDL: 110- 129 mg/dLBorderline High LDL: 130-159 mg/dLHigh LDL: 160-189 mg/dLVery High LDL: greater than or equal to 190 mg/dL HDL Cholesterol 50 >40 mg/dL [facility] Comment:Desirable HDL: great er than 40 mg/dL Note: This HDL assay may give artificially low results in patients with liver disease. 10/18/2023 11:3 2 AM EDT 10/18/2023 11:32 AM EDT us Generic External Data Provider LAB BLOOD ORDERAB LES Final Result Performing Organization Address City/[facility]/ZIP Co de Phone Number [facility] [address] [place] [phone] * Hepatitis C Antibody with Reflex to HCV, RNA, Quantitative, Real-Time PCR (02/18/2023 4:28 PM EDT) Hepatitis C Antibody Nonreactive Nonreactive [facility] Comment:Antibodies to HCV no t detected; does not exclude early acuteHCV infection. Blood Venous blood specimen / Unknown 02/18/2023 4:28 PM EDT 02/18/2023 5:32 PM EDT us Cherrie Arzate MD LAB BLOOD ORDERAB LES Final Result [facility] [address] [place] [phone] [phone] * THINPREP TIS PAP AND HPV mRNA E6/E7 WITH REFLEX TO HPV 16,18/45 (09/14/2021 10:22 AM EDT) Clinical Information: None given [facility] COMMENT SEE COMMENT FOUNDATI ON [...] computer assisted technology. [facility] Jet Dyeing Machine Tender: SEE COMMENT [facility] Comment: RXB, CT(ASCP) CT screening location: [address] [address] HPV nRNA E6/E7 Not Detected Not Detected [facility] Comment: Methodology: Foot Piece Assembler-Mediated Amplification This assay detects E6/E7 viral messenger RNA (mRNA) from 14 high-risk HPV types (16,18,31,33,35,39,45,51,52,56,58,59,66,68). The analytical performance characteristics of this assay have been determined by [facility]. The modifications have not been cleared or approved by the FDA. This assay has been validated pursuant to the CLIA regulations and is used for clinical purposes. For additional information, please refer to http://education.Huodongxing.flck.me/faq/RBX767v2 (This link if provided for information/ educational purposes only.) Interpretation/Re sult: Negative for intraepithelial lesion or malignancy. [facility] LMP: NONE GIVEN FOUNDATIO N [...] MD LAB PATHOLOGY ORDERAB LES Final Result [facility] [address] * Mammography Report 1 (08/23/2021 3:30 [...] Most Recently Relevant to Health Maintenance Insurance [facility] STANDARD [id number] [place] [address] - [place] FORMER[place] [facility] [employer] (HMO D-SNP) [place] [address] Care Teams Postmaster Relationship Specialty Start Date End Date Cherrie Gómez MD [address] [place] [phone] PCP - General Family Medicine 11/05/19 [facility] 08/06/19
--- OUTSIDE RECORDS SUMMARY | 2025-02-05 15:36 | XMS_ITS | Encounter Summary ---
Author Organization [employer] Address [address] [facility] [address] 7t [place] [address] Care Team Providers Care Certified Nursing Attendant Name Role Phone Cherrie Gómez MD Primary Care Provide r Reason for Visit * Reason Comments Med Refill Encounter Details Date Type Department Care Team ([facility] st Contact Info) Description 07/08/2023 Refill [facility] [address] [place] [address] Cherrie Gómez MD [address] [place] [address] Social History Tobacco Use Types Packs/Day Years [...] Info) Description 02/10/2025 2:15 PM EDT Telemedicine [facility] [address] [place] [address] Cherrie Gómez MD [address] [place] [phone] documented as of this encounter Visit Diagnoses Not on filedocumented in this encounter Additional Health Concerns Assessment Noted Time PHQ-9 Depression Total Score: 20 023 2:53 PM EST documented as of this encounter Care Teams Certified Nursing Attendant Relationship Specialty Start Date End Date Cherrie Gómez MD [address] [place] [address] [phone] PCP - General Family Medicine 11/05/19 [facility] 08/06/19 documented as of this encounter
--- OUTSIDE RECORDS SUMMARY | 2025-02-05 15:36 | XMS_ITS | Encounter Summary ---
Author Organization [employer] Address [address] [facility] [address] 7t [place] [address] Care Team Providers Care Technology Manager Name Role Phone Cherrie Gómez MD Primary Care Provide r Encounter Details Date Type Department Care Team ([facility] Contact Info) Description 05/22/2024 Orders Only [facility] MEDICINE [address] [place] [address] Martha Robertson MD [address] [place] [address] Edema, unspecified type; HOWARD (dyspnea on exertion); [...] Info) Description 02/10/2025 2:15 PM EDT Telemedicine [facility] MEDICINE [address] [place] [address] [phone] Cherrie Gómez MD [address] [place] [phone] documented as of this encounter Visit Diagnoses [...] documented as of this encounter Care Teams Technology Manager Relationship Specialty Start Date End Date Cherrie Gómez MD [address] [place] [address] [phone] PCP - General Family Medicine 11/05/19 [facility] 08/06/19 documented as of this encounter
--- OUTSIDE RECORDS SUMMARY | 2025-02-05 15:36 | XMS_ITS | Encounter Summary ---
Author Organization [employer] Address [address] [facility] [address] 7t [place] [address] Care Team Providers Care Machine Cutter Name Role Phone Cherrie Gómez MD Primary Care Provide r Encounter Details Date Type Department Care Team ([facility] Contact Info) Description 02/27/2023 Abstract [facility] MEDICINE [address] [place] [address] Cherrie Gómez MD [address] [place], [place] [phone] Social History Tobacco Use Types Packs/Day Years [...] Info) Description 02/10/2025 2:15 PM EDT Telemedicine [facility] MEDICINE [address] [place] [address] Cherrie Gómez MD [address] [place] [address] [phone] documented as of this encounter Visit Diagnoses Not on filedocumented in this encounter Additional Health Concerns Assessment Noted Time PHQ-9 Depression Total Score: 16 023 11:35 AM EDT documented as of this encounter Care Teams Machine Cutter Relationship Specialty Start Date End Date Cherrie Gómez MD [address] [place] [address] [phone] PCP - General Family Medicine 11/05/19 [facility] 08/06/19 documented as of this encounter
--- OUTSIDE RECORDS SUMMARY | 2025-02-05 15:36 | XMS_ITS | Encounter Summary ---
Author Organization [employer] Address [address] [facility] 7t [place] [address] Care Team Providers Care Tomato Grader Name Role Phone Cherrie Gómez MD Primary Care Provide r Encounter Details Date Type Department Care Team (Latest Contact Info) Description 11/14/2020 Abstract [facility] CONVERSIONS Dental, Provider, DDS Social [...] Info) Description 02/10/2025 2:15 PM EDT Telemedicine [facility] MEDICINE [address] [place] [address] Cherrie Gómez MD [address] [place] [address] documented as of this encounter Visit Diagnoses Not on filedocumented in this encounter Care Teams Tomato Grader Relationship Specialty Start Date End Date Cherrie Gómez MD [address] [place] [address] PCP - General Family Medicine 11/05/19 [facility] 08/06/19 documented as of this encounter
--- OUTSIDE RECORDS SUMMARY | 2025-02-05 15:36 | XMS_ITS | Encounter Summary ---
Author Organization [employer] Address [address] [facility] [address] 7t [place] [address] Care Team Providers Care Bar Catcher Name Role Phone Cherrie Gómez MD Primary Care Provide r Reason for Visit * Reason Comments Med Refill Encounter Details Date Type Department Care Team ([facility] st Contact Info) Description 01/31/2025 Refill [facility] MEDICINE [address] [place] [address] Cherrie Gómez MD [address] [place] [address] Social History Tobacco Use Types Packs/Day Years [...] Description 02/10/2025 2:15 PM EDT Telemedicine [facility] MEDICINE [address] [place] [address] Cherrie Gómez MD [address] [place] [address] documented as of this encounter Visit Diagnoses Not on filedocumented in this encounter Additional Health Concerns Assessment Noted Time PHQ-9 Depression Total Score: 0 07/14/19 25 2:16 PM EST documented as of this encounter Care Teams Bar Catcher Relationship Specialty Start Date End Date Cherrie Gómez MD [address] [place] [address] PCP - General Family Medicine 11/05/19 [facility] 08/06/19 documented as of this encounter
--- OUTSIDE RECORDS SUMMARY | 2025-02-05 15:36 | XMS_ITS | Encounter Summary ---
Author Organization [employer] Address [address] [facility] 7t [place] [address] Care Team Providers Care Operations Assistant Name Role Phone Cherrie Gómez MD Primary Care Provide r Reason for Visit * Reason Onset Date Comments FYI 10/31/2023 Encounter Details Date Type Department Care Team ([facility] Contact Info) Description 10/31/2023 Telephone [facility] MEDICINE [address] [place] [address] Cherrie Gómez MD [address] [place] [address] FYI Social History Tobacco Use Types Packs/Day [...] Info) Description 02/10/2025 2:15 PM EDT Telemedicine [facility] MEDICINE [address] [place] [address] Cherrie Gómez MD [address] [place] [address] documented as of this encounter Visit Diagnoses Not on filedocumented in this encounter Additional Health Concerns Assessment Noted Time PHQ-9 Depression Total Score: 20 023 2:53 PM EST documented as of this encounter Care Teams Operations Assistant Relationship Specialty Start Date End Date Cherrie Gómez MD [address] [place] [address] [phone] PCP - General Family Medicine 11/05/19 [facility] 08/06/19 documented as of this encounter
--- OUTSIDE RECORDS SUMMARY | 2025-02-05 15:36 | XMS_ITS | Encounter Summary ---
Author Organization [employer] Address [address] [facility] 7t [place] [address] Care Team Providers Care Manager Sign Name Role Phone Cherrie Gómez MD Primary Care Provide r Reason for Visit * Reason Onset Date Comments FYI 02/03/2025 Encounter Details Date Type Department Care Team ([facility] Contact Info) Description 02/03/[address] [facility] MEDICINE [address] [place] [address] Cherrie Gómez MD [address] [place] [address] I Social History Tobacco Use Types Packs/Day Years [...] Telephone Encounter - Chery Bales RN - 02/04/2025 1:01 PM EDT Triaged and scheduled for f/up * Telephone Encounter - Adam Schofield - 02/03/2025 12:45 PM EDT KENDALL... Sebastian from danni a nurse from [facility] reporting that pt had fall on 02/02/2025 [...] the ER. Any questions contact danni at [phone] Ext [phone]. If danni does not shrimp picker then send a VM or call the number again without adding the ext. documented in this encounter Plan of Treatment Upcoming Encounters Date Type Department Care Team (Late st Contact Info) Description 02/10/2025 2:15 PM EDT Telemedicine [facility] MEDICINE [address] [place] [address] Cherrie Gómez MD [address] [place] [address] documented as of this encounter Visit Diagnoses Not on filedocumented in this encounter Additional Health Concerns Assessment Noted Time PHQ-9 Depression Total Score: 0 07/14/19 25 2:16 PM EST documented as of this encounter Care Teams Manager Sign Relationship Specialty Start Date End Date Cherrie Gómez MD [address] [place] [address] PCP - General Family Medicine 11/05/19 [facility] 08/06/19 documented as of this encounter
--- OUTSIDE RECORDS SUMMARY | 2025-02-05 15:36 | XMS_ITS | Encounter Summary ---
Author Organization [employer] Address [address] [facility] [address] [place] [address] Care Team Providers Care Handyperson Name Role Phone Cherrie Gómez MD Primary Care Provide r Reason for Visit * Reason Onset Date Comments Referral 06/18/2023 Encounter Details Date Type Department Care Team ([facility] Contact Info) Description 06/18/2023 Telephone [facility] MEDICINE [address] [place] [address] Cherrie Gómez MD [address] [place] [address] Referral Social History Tobacco Use Types Packs/Day [...] see previous notes. * Telephone Encounter - Joes Francisco Beth - 06/18/2023 11:26 AM EST TC from daughter requesting a location change of referral Location: [address] [place] [address] Date: N/A Time: N/A Specialty: Memory DX: Memory loss Daughter stated pt already has referral for [facility] neurology but [facility] informed them that pt will need to be seen at a different location due to dx. If any questions Daughter stated feel free to contact at [phone]. documented in this encounter Plan of Treatment Upcoming Encounters Date Type Department Care Team (Late st Contact Info) Description 02/10/2025 2:15 PM EDT Telemedicine [facility] MEDICINE [address] [place] [phone] Cherrie Gómez MD [address] [place], [place] [phone] documented as of this encounter Visit Diagnoses Not on filedocumented in this encounter Additional Health Concerns Assessment Noted Time PHQ-9 Depression Total Score: 20 023 2:53 PM EST documented as of this encounter Care Teams Handyperson Relationship Specialty Start Date End Date Cherrie Gómez MD [address] [place] [address] PCP - General Family Medicine 11/05/19 [facility] 08/06/19 documented as of this encounter
--- OUTSIDE RECORDS SUMMARY | 2025-02-05 15:36 | XMS_ITS | Encounter Summary ---
Author Organization [employer] Address [address] [facility] 7t [place] [address] Care Team Providers Care Finish Patcher Name Role Phone Cherrie Gómez MD Primary Care Provide r Reason for Visit * Reason Onset Date Comments Nurse Triage 05/05/2024 Encounter Details Date Type Department Care Team ([facility] Contact Info) Description 05/05/2024 Telephone [facility] MEDICINE [address] [place] [address] Cherrie Gómez MD [address] [place] [address] Nurse Triage Social History Tobacco Use Types [...] concerns. Also provided daughter with contact for [facility] as a resources for any Therapy or Counseling or concerns for safety. Reviewed [facility] operating hours and that wait times [...] Info) Description 02/10/2025 2:15 PM EDT Telemedicine [facility] MEDICINE [address] [place] [address] Cherrie Gómez MD [address] [place] [address] documented as of this encounter Visit Diagnoses Not on filedocumented in this encounter Additional Health Concerns Assessment Noted Time PHQ-9 Depression Total Score: 20 023 2:53 PM EST documented as of this encounter Care Teams Finish Patcher Relationship Specialty Start Date End Date Cherrie Gómez MD [address] [place], [place] [phone] PCP - General Family Medicine 11/05/19 [facility] 08/06/19 documented as of this encounter
--- OUTSIDE RECORDS SUMMARY | 2025-02-05 15:36 | XMS_ITS | Encounter Summary ---
Author Organization [employer] Address [address] [facility] [address] 7t [place] [address] Care Team Providers Care Rn Burn Name Role Phone Cherrie Gómez MD Primary Care Provide r Reason for Visit * Reason Onset Date Comments Med Refill 01/06/2024 Encounter Details Date Type Department Care Team ([facility] Contact Info) Description 01/06/2024 Telephone [facility] [address] [place] [address] Cherrie Gómez MD [address] [place] [address] Med Refill Social History Tobacco Use Types [...] to PCP. * Telephone Encounter - Marry Ltuz - 01/06/2024 8:05 AM EDT TC from pt requesting medication refill. Medications needing refill : meclizine (Antivert) 25 MG tablet To be sent to: [facility]/pharmacy #[id number] [place] [address] - [address] [place] [address] documented in this encounter Plan of Treatment Upcoming Encounters Date Type Department Care Team (Late st Contact Info) Description 02/10/2025 2:15 PM EDT Telemedicine [facility] [address] [place] [address] Cherrie Gómez MD [address] [place] [address] documented as of this encounter Visit Diagnoses Not on filedocumented in this encounter Additional Health Concerns Assessment Noted Time PHQ-9 Depression Total Score: 20 023 2:53 PM EST documented as of this encounter Care Teams Rn Burn Relationship Specialty Start Date End Date Cherrie Gómez MD [address] [place] [address] PCP - General Family Medicine 11/05/19 [facility] 08/06/19 documented as of this encounter
--- OUTSIDE RECORDS SUMMARY | 2025-02-05 15:36 | XMS_ITS | Encounter Summary ---
Author Organization [employer] Address [address] [facility] 7t [place] [address] Care Team Providers Care Service Attendant Name Role Phone Cherrie Gómez MD Primary Care Provide r Encounter Details Date Type Department Care Team (Latest Contact Info) Description 01/22/2019 Abstract [facility] CONVERSIONS Dental, Provider, DDS Social History Tobacco [...] Info) Description 02/10/2025 2:15 PM EDT Telemedicine [facility] MEDICINE [address] [place] [address] Cherrie Gómez MD [address] [place] [address] documented as of this encounter Visit Diagnoses Not on filedocumented in this encounter Care Teams Service Attendant Relationship Specialty Start Date End Date Cherrie Gómez MD [address] [place] [address] PCP - General Family Medicine 11/05/19 [facility] 08/06/19 documented as of this encounter
--- OUTSIDE RECORDS SUMMARY | 2025-02-05 15:36 | XMS_ITS | Encounter Summary ---
Author Organization [employer] Address [address] [facility] 7t [place] [address] Care Team Providers Care Executive Assistant To President Name Role Phone Cherrie Gómez MD Primary Care Provide r Reason for Visit * Reason Comments Med Refill Encounter Details Date Type Department Care Team ([facility] Contact Info) Description 01/09/2023 Refill [facility] [address] [place] [address] Cherrie Gómez MD [address] [place] [address] Social History Tobacco Use Types Packs/Day Years [...] Department Care Team (Late Contact Info) Description 02/10/2025 2:15 PM EDT Telemedicine [facility] [address] [place] [address] Cherrie Gómez MD [address] [place] [address] documented as of this encounter Visit Diagnoses Not on filedocumented in this encounter Additional Health Concerns Assessment Noted Time PHQ-9 Depression Total Score: 16 023 11:35 AM EDT documented as of this encounter Care Teams Executive Assistant To President Relationship Specialty Start Date End Date Cherrie Gómez MD [address] [place] [address] PCP - General Family Medicine 11/05/19 [facility] 08/06/19 documented as of this encounter
--- OUTSIDE RECORDS SUMMARY | 2025-02-05 15:36 | XMS_ITS | Encounter Summary ---
Author Organization [employer] Address [address] [facility] [facility] [address] 7t [place] [address] Care Team Providers Care Flame Cutting Machine Operator Name Role Phone Cherrie Gómez MD Primary Care Provide r Encounter Details Date Type Department Care Team ([facility] Contact Info) Description 12/21/2024 Orders Only [facility] MEDICINE [address] [place] [address] Cherrie Gómez MD [address] [place] [address] Social History Tobacco Use Types Packs/Day Years [...] Info) Description 02/10/2025 2:15 PM EDT Telemedicine [facility] MEDICINE [address] [place] [address] Cherrie Gómez MD [address] [place] [address] documented as of this encounter Visit Diagnoses Not on filedocumented in this encounter Additional Health Concerns Assessment Noted Time PHQ-9 Depression Total Score: 0 07/14/19 25 2:16 PM EST documented as of this encounter Care Teams Flame Cutting Machine Operator Relationship Specialty Start Date End Date Cherrie Gómez MD [address] [place] [address] PCP - General Family Medicine 11/05/19 [facility] 08/06/19 documented as of this encounter
--- OUTSIDE RECORDS SUMMARY | 2025-02-05 15:36 | XMS_ITS | Encounter Summary ---
Author Organization [employer] Address [address] [facility] 7t [place] [address] Care Team Providers Care Slate Handler Name Role Phone Cherrie Gómez MD Primary Care Provide r Reason for Visit * Reason Comments Med Refill Encounter Details Date Type Department Care Team (Late Contact Info) Description 04/23/[address] [facility] [address] [place] [address] Nancy Denny DO [address] [place] [address] Anemia, unspecified type Social History Tobacco Use [...] Info) Description 02/10/2025 2:[address] [facility] MEDICINE [address] [place] [address] Cherrie Gómez MD [address] [place] [address] documented as of this encounter Visit Diagnoses Diagnosis Anemia, unspecified type documented in this encounter Care Teams Slate Handler Relationship Specialty Start Date End Date Cherrie Gómez MD [address] [place] [address] PCP - General Family Medicine 11/05/19 [facility] 08/06/19 documented as of this encounter
--- OUTSIDE RECORDS SUMMARY | 2025-02-05 15:36 | XMS_ITS | Clinical Summary ---
Author Organization [facility] Address [address] [place] [address] [address] [place]OPE[place] [phone] Phone Care Team Providers Care Heading And Priming Operator Name Role Phone Cherrie Gómez MD [...] 05/02/2023, 07/02/2018, 06/14/2017, Additional history exists Insurance [facility] ([id number]) JOHNNY SAMSON [id number] [place] [id number] [facility] ([id number]) JOHNNY SAMSON [phone] Care Teams Heading And Priming Operator Relationship Specialty Start Date End Date Cherrie Gómez MD [address] [place] [address] [place] [address] PCP - General 05/30/20
[2025-02-05 15:37] VITALS: BP 106/58; PULSE 60; O2SAT 95
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
--- OUTSIDE RECORDS SUMMARY | 2025-02-05 15:37 | XMS_ITS | Encounter Summary ---
Author Organization [employer] Address [address] [facility] 7t [place] [address] Care Team Providers Care Machine Packager Name Role Phone Cherrie Gómez MD Primary Care Provide r Encounter Details Date Type Department Care Team ([facility] Contact Info) Description 01/29/2023 Telephone [facility] MEDICINE [address] [place] [phone] Cierra Andrade LPN Social History Tobacco Use [...] Upcoming Encounters Date Type Department Care Team ([facility] Contact Info) Description 02/10/2025 2:15 PM EDT Telemedicine [facility] MEDICINE 230 [place], [place] [phone] Cherrie Gómez MD [address] [place], [place] [phone] documented as of this encounter Visit Diagnoses Not on filedocumented in this encounter Additional Health Concerns Assessment Noted Time PHQ-9 Depression Total Score: 16 023 11:35 AM EDT documented as of this encounter Care Teams Machine Packager Relationship Specialty Start Date End Date Cherrie Gómez MD [address] [place] [address] PCP - General Family Medicine 11/05/19 [facility] 08/06/19 documented as of this encounter
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
--- OUTSIDE RECORDS SUMMARY | 2025-02-05 15:37 | XMS_ITS | Encounter Summary ---
Author Organization [employer] Address [address] [place] [address] 7t [place] [address] Care Team Providers Care Java Portal Developer Name Role Phone Cherrie Gómez MD Primary Care Provide r Encounter Details Date Type Department Care Team ([facility] Contact Info) Description 01/09/2023 [facility] Information Management [address] [place] [address] Cherrie Gómez MD [address] [place] [address] Social History Tobacco Use Types Packs/Day Years [...] Upcoming Encounters Date Type Department Care Team ([facility] Contact Info) Description 02/10/2025 2:15 PM EDT Telemedicine [facility] MEDICINE [address] [place] [address] Cherrie Gómez MD [address] [place] [address] documented as of this encounter Visit Diagnoses Not on filedocumented in this encounter Additional Health Concerns Assessment Noted Time PHQ-9 Depression Total Score: 16 023 11:35 AM EDT documented as of this encounter Care Teams Java Portal Developer Relationship Specialty Start Date End Date Cherrie Gómez MD [address] [place] [address] PCP - General Family Medicine 11/05/19 [facility] 08/06/19 documented as of this encounter
--- OUTSIDE RECORDS SUMMARY | 2025-02-05 15:37 | XMS_ITS | Encounter Summary ---
Author Organization [employer] Address [address] [facility] [address] [facility] [address] 7t [place] [address] Care Team Providers Care Recording Studio Intern Name Role Phone Cherrie Gómez MD Primary Care Provide r Reason for Visit * Reason Onset Date Comments Med Refill 06/04/2024 Encounter Details Date Type Department Care Team ([facility] Contact Info) Description 06/04/2024 Telephone [facility] MEDICINE [address] [place] [address] Cherrie Gómez MD [address] [place] [address] Med Refill Social History Tobacco Use Types [...] 10:13 AM EST Medication was sent to [id number] on 04/13/24 90 day supply with 1 refill. * Telephone Encounter - Jess Lopez - 06/04/2024 9:48 AM EST TC from pt requesting medication refill. Medications needing refill : ferrous sulfate 325 (65 Fe) MG tablet To be sent to: [facility]/pharmacy #[id number] - [address] documented in this encounter Plan of Treatment Upcoming Encounters Date Type Department Care Team (Late st Contact Info) Description 02/10/2025 2:15 PM EDT Telemedicine [facility] MEDICINE [address] [place] [address] Cherrie Gómez MD [address] [place] [address] documented as of this encounter Visit Diagnoses Not on filedocumented in this encounter Additional Health Concerns Assessment Noted Time PHQ-9 Depression Total Score: 20 023 2:53 PM EST documented as of this encounter Care Teams Recording Studio Intern Relationship Specialty Start Date End Date Cherrie Gómez MD [address] [place] [address] PCP - General Family Medicine 11/05/19 [facility] 08/06/19 documented as of this encounter
--- OUTSIDE RECORDS SUMMARY | 2025-02-05 15:37 | XMS_ITS | Encounter Summary ---
Author Organization [employer] Address [address] [facility] 7t [place] [address] Care Team Providers Care Plan Consultant Name Role Phone Cherrie Gómez MD Primary Care Provide r Reason for Visit * Reason Onset Date Comments Med Refill 09/04/2024 Encounter Details Date Type Department Care Team ([facility] Contact Info) Description 09/04/2024 Telephone [facility] MEDICINE [address] [place] [address] Cherrie Gómez MD [address] [place] [address] Med Refill Social History Tobacco Use Types [...] 600-10 MG-MCG tablet To be sent to: [facility]/pharmacy #[id number] [place], [place] - [address] [place] [address] documented in this encounter Plan of Treatment Upcoming Encounters Date Type Department Care Team (Late st Contact Info) Description 02/10/2025 2:15 PM EDT Telemedicine [facility] MEDICINE [address] [place] [address] Cherrie Gómez MD [address] [place] [address] documented as of this encounter Visit Diagnoses Not on filedocumented in this encounter Additional Health Concerns Assessment Noted Time PHQ-9 Depression Total Score: 0 07/14/19 25 2:16 PM EST documented as of this encounter Care Teams Plan Consultant Relationship Specialty Start Date End Date Cherrie Gómez MD [address] [place] [address] PCP - General Family Medicine 11/05/19 [facility] 08/06/19 documented as of this encounter
--- OUTSIDE RECORDS SUMMARY | 2025-02-05 15:37 | XMS_ITS | Encounter Summary ---
Author Organization [employer] Address [address] [facility] [address] [facility] [facility] [address] 7t [place] [address] Care Team Providers Care Biofuels Product Manager Name Role Phone Cherrie Gómez MD Primary Care Provide r Encounter Details Date Type Department Care Team ([facility] Contact Info) Description 07/27/2024 Orders Only [facility] MEDICINE [address] [place] [address] Cherrie Gómez MD [address] [place] [address] Social History Tobacco Use Types Packs/Day Years [...] Info) Description 02/10/2025 2:15 PM EDT Telemedicine [facility] MEDICINE [address] [place] [address] Cherrie Gómez MD [address] [place] [address] documented as of this encounter Visit Diagnoses Not on filedocumented in this encounter Additional Health Concerns Assessment Noted Time PHQ-9 Depression Total Score: 0 07/14/19 25 2:16 PM EST documented as of this encounter Care Teams Biofuels Product Manager Relationship Specialty Start Date End Date Cherrie Gómez MD [address] [place] [address] PCP - General Family Medicine 11/05/19 [facility] 08/06/19 documented as of this encounter
--- OUTSIDE RECORDS SUMMARY | 2025-02-05 15:37 | XMS_ITS | Encounter Summary ---
Author Organization [employer] Address [address] [place] [address] Care Team Providers Care Forming Press Operator Name Role Phone Cherrie Gómez MD Primary Care Provide r Reason for Visit * Reason Comments Med Refill Encounter Details Date Type Department Care Team ([facility] st Contact Info) Description 10/19/2022 Refill [facility] [address] [place] [address] Sharon Zavaleta MD [address] [place] [address] Anemia, unspecified type Social History Tobacco Use [...] Info) Description 02/10/2025 2:15 PM EDT Telemedicine [facility] MEDICINE [address] [place] [address] Cherrie Gómez MD [address] [place] [address] documented as of this encounter Visit Diagnoses Diagnosis Anemia, unspecified type documented in this encounter Additional Health Concerns Assessment Noted Time PHQ-9 Depression Total Score: 16 023 11:35 AM EDT documented as of this encounter Care Teams Forming Press Operator Relationship Specialty Start Date End Date Cherrie Gómez MD [address] [place] [id number] PCP - General Family Medicine 11/05/19 [facility] 08/06/19 documented as of this encounter
[2025-02-05 15:48] LABS: Glucose, Whole Blood 239 mg/dL (60-115)
== END 2025-02-05 15:59 | disposition home or self-care (01) ==
LOC: HO.ENCR 15:34
PROVIDERS: PCP Internal Medicine; Visit Provider Physician Assistant
DX: E11.9 Type 2 diabetes mellitus without complications (principal); Z79.4 Long term (current) use of insulin; I10 Essential (primary) hypertension

== ENCOUNTER → 2025-02-05 15:34 | Outpatient (BNVA) | payer OTHER, SELFPAY | PROVIDERS: PCP Internal Medicine; Visit Provider Physician Assistant | DX: E11.22 Type 2 diabetes mellitus with diabetic chronic kidney disease (principal); I13.0 Hypertensive heart and chronic kidney disease with heart failure and stage 1 through stage 4 chronic kidney disease, or unspecified chronic kidney disease; N18.30 Chronic kidney disease, stage 3 unspecified; I50.9 Heart failure, unspecified; E78.5 Hyperlipidemia, unspecified; Z79.4 Long term (current) use of insulin; Z95.0 Presence of cardiac pacemaker | CPT/HCPCS: 82947; 99212 ==

== ENCOUNTER 2025-02-18 13:12 | Emergency (ER) | payer OTHER, SELFPAY ==
--- NOTE | ~2025-02-18 | CT_ITS ---
EXAMINATION: CT CERVICAL SPINE WITHOUT CONTRAST CLINICAL INFORMATION: Fall, dementia, nonfocal neurological exam COMPARISON: 02/03/2025 TECHNIQUE: Axial imaging was performed from the base of the skull through T2 without IV contrast. Coronal and sagittal reformatted images were generated from the original axial data set. ALARA: The examination used one or more of the following radiation dose reduction techniques: Automated exposure control, iterative reconstruction, and/or adjustment of mA and/or KV. FINDINGS: There is no prevertebral soft tissue edema. There are mild degenerative changes with osteophytes involving facets and uncovertebral joints. There is mild disc space narrowing. There is subtle retrolisthesis at C5-6, unchanged. No fracture line is apparent. CT/CT cervical spine wo IV con IMPRESSION: Stable CT scan of the cervical spine compared with study performed 2 weeks ago. No acute bony abnormality. Electronically signed by: Rodrigo Finch MD 02/18/2025 03:33 PM EDT
--- NOTE | ~2025-02-18 | CT_ITS ---
EXAMINATION: CT HEAD WITHOUT CONTRAST CLINICAL INFORMATION: Head strike, trauma, dementia. COMPARISON: Numerous priors, most recently 02/03/2025. TECHNIQUE: Contiguous axial imaging was performed from the skull base to vertex without intravenous administration of contrast. This CT examination was performed using dose optimization techniques as appropriate, variously including the following: *Automated exposure control *Adjustment of mA and/or kV according to patient size (this includes techniques or standardized protocols for targeted exams where dose is matched to indication/reason for exam; i.e. extremities or head) *Use of iterative reconstruction technique FINDINGS: There is no evidence of intracranial hemorrhage or extra-axial fluid collection. There is no mass effect, or edema. No CT evidence of acute territorial infarct. Ventricles, sulci, and cisterns are normal in size and configuration for patient age. No hydrocephalus. No midline shift. Negative hyperdense MCA sign. Negative insular ribbon sign. Patchy periventricular and deep white matter hypoattenuation is consistent with mild small vessel ischemic changes. Empty sella present. Globes and orbital contents image normally. No extracranial soft tissue abnormalities. Mild mucosal thickening in the dependent right maxillary sinus. The remaining paranasal sinuses, mastoid air cells, and tympanic cavities are normally aerated. No suspicious bony abnormalities. There are no acute fractures evident. CT/CT head/brain wo IV con IMPRESSION: No acute intracranial abnormality. No fracture evident. Electronically signed by: Woo Whitmore MD 02/18/2025 03:26 PM EDT
--- NOTE | ~2025-02-18 | CT_ITS ---
EXAMINATION: CT CHEST WITHOUT CONTRAST CLINICAL INFORMATION: Right upper anterior chest tenderness, fall COMPARISON: November 23, 2019 TECHNIQUE: Multidetector volumetric CT imaging of the chest was done. Axial MIP volume rendering provided. Sagittal and coronal reformatted images were obtained. This CT examination was performed using dose optimization techniques as appropriate, variously including the following: *Automated exposure control *Adjustment of mA and/or kV according to patient size (this includes techniques or standardized protocols for targeted exams where dose is matched to indication/reason for exam; i.e. extremities or head) *Use of iterative reconstruction technique FINDINGS: LUNGS: The lungs are clear with no evidence of inflammation or nodules. MEDIASTINUM: There is pacemaker over the left upper chest with leads extending to right atrium and right ventricle. CORONARY ARTERY CALCIFICATION: Minimal PLEURA: There is no pleural effusion. No pleural mass or thickening. AXILLA: No lymphadenopathy. UPPER ABDOMEN: A coarse calcification is present liver just cephalad to the karo hepatis. There are clips in the gallbladder fossa related to cholecystectomy Surgical changes are present related to gastric bypass surgery.. OSSEOUS STRUCTURES: Chronic superior endplate compression fracture of T11 is stable. No acute fractures are identified. CT/CT chest wo IV con IMPRESSION: Chronic mild superior endplate compression fracture of T11. No acute fracture is identified. Fleischner guidelines were followed. Electronically signed by: Rodrigo Finch MD 02/18/2025 03:40 PM EDT
[2025-02-18 13:17] VITALS: BP 133/60; BP 146/100; PULSE 60; PULSE 72; RESP 14; TEMP 36.4; O2SAT 96; O2SAT 99; BMI 31.3
--- NOTE | 2025-02-18 13:25 | ECG_ITS ---
Test Reason : CHEST PAIN Blood Pressure : */* mmHG Vent. Rate : 60 BPM Atrial Rate : 60 BPM P-R Int : 198 ms QRS Dur : 132 ms QT Int : 456 ms P-R-T Axes : * -51 59 degrees QTcB Int : 456 ms AV dual-paced rhythm Abnormal ECG When compared with ECG of 23-Oct-2024 18:28, No significant change was found Referred By: Generic ED Physician Electronically Signed By: ES LEE
--- NOTE | 2025-02-18 13:46 | ED.GENADULT ---
HPI - General Adult General Chief complaint: General Medical Stated complaint: Fall W/Head Strike Time Seen by Provider: 02/18/25 13:25 History of Present Illness ED Provider: Raheel Moeller MD HPI narrative: 69-year-old female it tripped and fell nonsyncopal fall just prior to arrival she feels she struck the left side of the face and head. No LOC. Denies vomiting. She has a little bit of pain in the right upper chest. No significant neck pain no focal neuro symptoms described. No other symptoms no lightheadedness or prodrome. Despite triage description patient denies pressure heaviness elephant sitting on chest and points to the right upper anterior chest [place] the center of the pain Related Data Home Medications ?Medication ?Instructions ?Recorded ?Confirmed calcium 600 mg (as 1 tab PO BID 03/09/20 02/05/25 carbonate)-vitamin D3 10 mcg (400 unit) tablet ferrous sulfate 325 mg (65 mg 325 mg PO BID 03/09/20 02/05/25 iron) tablet oxybutynin chloride 5 mg tablet 5 mg PO BID 03/09/20 02/05/25 trazodone 100 mg tablet 100 mg PO BEDTIME PRN Sleep 03/09/20 02/05/25 aspirin 81 mg tablet,delayed 81 mg PO DAILY 11/21/22 02/05/25 release (Adult Aspirin Regimen) escitalopram oxalate 20 mg tablet 20 mg PO DAILY 05/30/23 02/05/25 meclizine 25 mg tablet 25 mg PO DAILY PRN Dizziness 06/27/23 02/05/25 multivitamin 1 tab PO DAILY 07/26/23 02/05/25 lancets 28 gauge (FreeStyle #100 ea 10/18/23 02/05/25 Lancets) gabapentin 300 mg capsule 300 mg PO BEDTIME 07/08/24 02/05/25 loperamide 2 mg capsule 2 mg PO Q6H PRN Loose Stool 07/08/24 02/05/25 bupropion HCl 150 mg 24 hr tablet, 150 mg PO DAILY 01/04/25 02/05/25 extended release (Wellbutrin XL) Previous Rx's ?Medication ?Instructions ?Recorded blood-glucose meter (Plaza BankStyle #1 ea 09/29/20 Lite Meter kit) atorvastatin 80 mg tablet 80 mg PO BEDTIME #30 tabs 10/03/21 blood sugar diagnostic (FreeStyle #200 ea 10/04/21 Lite Strips) cholecalciferol (vitamin D3) 50 50 mcg PO DAILY #90 caps 01/08/22 mcg (2,000 unit) capsule diabetic shoes #1 ea 04/05/22 diabetic shoes #1 ea 12/21/22 aluminum-mag hydroxide-simethicone 10 ml PO QID PRN chest pain #3,000 12/06/23 400 mg-400 mg-40 mg/5 mL oral susp mL (Mylanta Maximum Strength) amlodipine 5 mg tablet 5 mg PO DAILY #90 tabs 04/14/24 furosemide 20 mg tablet 20 mg PO DAILY weight gain #90 tabs 04/21/24 simethicone 125 mg chewable tablet 125 mg PO BID-QID PRN abdominal 08/18/24 (Gas Relief (simethicone)) distention #120 tabs flecainide 50 mg tablet 50 mg PO Q12H #180 tabs 08/28/24 metoprolol succinate 25 mg 25 mg PO DAILY #90 tabs 09/28/24 tablet,extended release 24 hr glucose 4 gram chewable tablet 16 g (4 x 4 gram) PO Q15M PRN 09/30/24 (Dex4 Glucose) hypoglycemia 30 days #30 tabs insulin syringe-needle U-100 1 mL #100 ea 09/30/24 31 gauge x 5/16 blood-glucose sensor (FreeStyle #2 ea 11/30/24 Zunilda 3 Plus Sensor device) blood-glucose,medical physics teacher,cont #1 ea 11/30/24 (FreeStyle Zunilda 3 [place]) metformin 1,000 mg tablet 1,000 mg PO BID 90 days #180 tabs 01/04/25 metoclopramide HCl 5 mg tablet 5 mg PO QID #120 tabs 02/04/25 dicyclomine 20 mg tablet 20 mg PO QID 30 days #120 tabs 02/16/25 Allergies Allergy/AdvReac Type Severity Reaction Status Date / Time empagliflozin AdvReac Intermediate uti Verified 02/18/25 13:24 [facility] Past Medical History Medical History Diabetes mellitus type 2, insulin dependent Diastolic dysfunction Hypertension CKD stage 3 secondary to diabetes Gastroparesis due to secondary diabetes Bradycardia Burning with urination Encounter for monitoring anti-arrhythmic therapy Essential hypertension Abdominal bloating Small intestinal bacterial overgrowth Nausea and vomiting Dysphagia Periumbilical abdominal pain Globus sensation Orthostatic hypotension Presence of Watchman left atrial appendage closure device Subdural hematoma Syncope and collapse PAF (paroxysmal atrial fibrillation) Vitamin D deficiency Anxiety Depression Overweight (BMI 25.0-29.9) Dyslipidemia Non-toxic multinodular goiter Diabetic polyneuropathy associated with type 2 diabetes mellitus Diabetic retinopathy associated with type 2 diabetes mellitus Diabetes type 2, controlled Surgical History Hx of breast reduction, elective History of cholecystectomy H/O esophagogastroduodenoscopy Hx of colonoscopy History of gastric bypass History of gastric bypass Hx of hand surgery Family History Family History Father CVD (cardiovascular disease) Mother Diabetes Social History Social History Household Members: Spouse Alcohol intake: never Patient Tobacco Use Status: Former Tobacco user Tobacco use type: Cigarette Physical Exam ED Exam Exam: Primary Survey: GCS: 15 Airway: Intact airway Breathing: Spontaneous respirations with bilateral breath sounds Circulation: Palpable bilateral carotid, brachial, femoral DP pulses with good skin color and distal perfusion. Disability: No gross paresis of the extremities or obvious focal neuro deficit. E FAST Ultrasound: NA Secondary Survey GENERAL: Well appearing. No apparent distress. Alert. HEAD: The head is atraumatic, without swelling or ecchymosis of the face or behind the ears, including the periorbital area. There is no tenderness to face, and the oral and nasal mucosa are nonbloody. Dentition is intact. The TMs are without hemotympanum. NECK: Cervical collar in place. There is no midline cervical neck tenderness or stepoffs. The patient denies any numbness, tingling, or weakness of the extremities. ?After CT/clinical clearance; Later examination after collar removal: The patient is able to range their neck completely without midline cervical pain, numbness, tingling, or weakness. EYES: Normal to inspection. Sclera non-icteric. EOMI, Pupils grossly symmetric/reactive. ENMT: External nose normal. No facial depression, gross hemotympanum, epistaxis. RESPIRATORY: Respiratory effort normal. Lungs clear to auscultation bilaterally. CARDIOVASCULAR: Regular rate. Normal rhythm. No murmur. No rubs. GI: Soft, non-tender, non-distended. No rebound or guarding. No masses palpable. No hepatosplenomegaly. No bruising. MSK: Chest Wall: Mild chest wall tenderness right anterior upper no bruising no crepitus Atraumatic, nontender, no crepitus, seat belt sign or ecchymosis. Back: No ecchymosis, no abrasions or other external signs of trauma, no midline spinal tenderness. Upper Extremities: Atraumatic, no swelling, deformity, focal tenderness, +FROM of all joints. Lower Extremities: Atraumatic, no swelling, deformity, focal tenderness, +FROM of all joints. SKIN: No jaundice. No abrasions, lacerations, or ecchymosis. NEUROLOGICAL: Alert. Comprehensive Neuro exam: Face symmetric, tongue midline, strong symmetric eye closure intact strong face deviation and shoulder shrug. Sensation intact to light touch throughout 5 out of 5 strength in bilateral upper extremities, 5 and 5 strength in lower extremities bilaterally? PSYCHIATRIC: Alert. Appearance appropriate for situation. Attitude cooperative. Vital Signs: Vital Signs - 24 hr 02/18/25 13:17 02/18/25 14:05 02/18/25 17:01 Temperature 97.5 F 97.8 F 97.6 F Pulse Rate 60 60 60 Respiratory Rate 14 16 18 Blood Pressure 133/60 128/95 H 142/56 H Pulse Oximetry 99 99 98 Oxygen Delivery Method Room Air Room Air Room Air 02/18/25 17:54 Temperature 97.6 F Pulse Rate 60 Respiratory Rate 18 Blood Pressure 142/56 H Pulse Oximetry 98 Oxygen Delivery Method Room Air BMI result Body Mass Index 31.3 Medications Administered Discontinued Medications Generic Name Dose Route Start Last Admin Trade Name Freq PRN Reason Stop Dose Admin Acetaminophen 975 mg 02/18/25 13:57 02/18/25 17:33 Acetaminophen 325 Mg Tablet PO 02/18/25 13:58 975 mg ONCE ONE Administration Medical Decision Making Medical Decision Making MDM Narrative: Medical Decision Making: [age] female with fall nonsyncopal. Looks well hemodynamically stable neurovascularly intact. CT imaging excludes any significant chest injury. Head and C-spine negative. Patient ambulatory comfortable no vomiting looks well vitals have remained stable in ED. Patient remained stable throughout ED course. CT imaging reassuring Preliminary Favored Differential Diagnosis: Head injury, neck injury, chest wall injury rib fracture rib contusion chest wall contusion. among additional considered etiologies Testing Interpreted Independently: ?See below for details Radiology or Lab testing Results Reviewed: ?See below for details Consults: ?See below for details Independent Historians/External Chart Reviews: ?See below for details Social Determinants of Health Impacting MDM/Planning: ?See below for details Discharge Plan Discharge Clinical Impression: Contusion of head Patient Disposition: Home, Self-Care Instructions: Contusion in Adults (ED) Additional Instructions: DISCHARGE DIAGNOSES: Contusion of the head. CT of the head neck and chest without injuries. HISTORY OF PRESENTATION: ?Fall EMERGENCY DEPARTMENT COURSE,TESTS, TREATMENTS: While in the ED today evaluation with CTs was negative. DISCHARGE MEDICATIONS: ?[We have made no changes to your regular medication regimen] FOLLOW-UP: ?Call your primary or general physician soon as possible to discuss your symptoms, your ED visit and to discuss follow up plans PCP follow up as needed INSTRUCTIONS ?& RETURN PRECAUTIONS: If any symptoms change first call your primary physician, if it is after-hours your primary doctors office should have a provider government services professional you can speak with. If the symptoms are severe or very concerning to you then call 911 or return to the ED. Raheel Moeller MD Emergency Physician [facility] Prescriptions: No Action (DME) blood-glucose meter [FreeStyle Lite Meter] Kit See Rx Instructions miscellaneous .MEDSUPPLY Qty: 1 0RF Rx Instructions: Twice a day atorvastatin 80 mg tablet 80 mg PO BEDTIME Qty: 30 11RF (DME) FreeStyle Lite Strips Strip See Rx Instructions .MEDSUPPLY Qty: 200 10RF Rx Instructions: 2times a day cholecalciferol (vitamin D3) 50 mcg (2,000 unit) capsule 50 mcg PO DAILY Qty: 90 4RF (DME) diabetic shoes See Rx Instructions .ROUTE .MEDSUPPLY Qty: 1 0RF Rx Instructions: extra depth orthopedic shoes ( 1 pair ) with customize heat molded multi density inner soles ( 3 pair) Dispense 1 Sig: As directed DX: And IDDM /polyneuropathy ( E11 0.42 ); hammertoe foot deformity ( M 20.41, and 20.42 ) pre ulcerative skin lesion ( L 85.1 ) Diagnosis ( E11 0.42 ) type 2 diabetes with polyneuropathy aspirin [Adult Aspirin Regimen] 81 mg tablet,delayed release (DR/EC) 81 mg PO DAILY amlodipine 5 mg tablet 5 mg PO DAILY Qty: 90 3RF furosemide 20 mg tablet 20 mg PO DAILY Qty: 90 3RF Rx Instructions: take as needed for weight gain of 3 lbs over night until at baseline weight. simethicone [Gas Relief (simethicone)] 125 mg tablet,chewable 125 mg PO BID-QID PRN (Reason: abdominal distention) Qty: 120 6RF flecainide 50 mg tablet 50 mg PO Q12H Qty: 180 3RF metoprolol succinate 25 mg tablet extended release 24 hr 25 mg PO DAILY Qty: 90 3RF (DME) FreeStyle Zunilda 3 Plus Sensor Device See Rx Instructions .ROUTE .MEDSUPPLY Qty: 2 11RF Rx Instructions: As directed for coninuous use change every 15 days (DME) FreeStyle Zunilda 3 [place] Misc See Rx Instructions .Route Qty: 1 0RF Rx Instructions: As directed metoclopramide HCl 5 mg tablet 5 mg PO QID Qty: 120 2RF dicyclomine 20 mg tablet 20 mg PO QID 30 Days Qty: 120 3RF ferrous sulfate 325 mg (65 mg iron) tablet 325 mg PO BID calcium carbonate-vitamin D3 600 mg(1,500mg) -400 unit tablet 1 tab PO BID trazodone 100 mg tablet 100 mg PO BEDTIME PRN (Reason: Sleep) oxybutynin chloride 5 mg tablet 5 mg PO BID (DME) diabetic shoes See Rx Instructions .ROUTE .MEDSUPPLY Qty: 1 0RF Rx Instructions: extra depth orthopedic shoes ( 1 pair ) with customize heat molded multi density inner soles ( 3 pair) Dispense 1 Sig: As directed DX: And IDDM /polyneuropathy ( E11 0.42 ); hammertoe foot deformity ( M 20.41, and 20.42 ) pre ulcerative skin lesion ( L 85.1 ) Diagnosis ( E11 0.42 ) type 2 diabetes with polyneuropathy bupropion HCl [Wellbutrin XL] 150 mg tablet extended release 24 hr 150 mg PO DAILY metformin 1,000 mg tablet 1,000 mg PO BID 90 Days Qty: 180 1RF escitalopram oxalate 20 mg tablet 20 mg PO DAILY meclizine 25 mg tablet 25 mg PO DAILY PRN (Reason: Dizziness) multivitamin Tablet 1 tab PO DAILY (DME) lancets [FreeStyle Lancets] 28 gauge misc See Rx Instructions .ROUTE .MEDSUPPLY Qty: 100 Rx Instructions: As directed alum-mag hydroxide-simeth [Mylanta Maximum Strength] 400-400-40 mg/5 mL suspension 10 ml PO QID PRN (Reason: chest pain) Qty: 3000 3RF gabapentin 300 mg capsule 300 mg PO BEDTIME loperamide 2 mg capsule 2 mg PO Q6H PRN (Reason: Loose Stool) (DME) insulin syringe-needle U-100 1 mL 31 gauge x 5/16 syringe See Rx Instructions .ROUTE .MEDSUPPLY Qty: 100 8RF Rx Instructions: As directed twice daily glucose [Dex4 Glucose] 4 gram tablet,chewable 16 g PO Q15M MDD 16 tablets PRN (Reason: hypoglycemia) 30 Days Qty: 30 3RF Rx Instructions: every 15 minutes until symptoms of low blood sugar are controlled Interventions: ED Discharge Assessment Last Done: 02/18/25 17:54 Discharge Date/Time: 02/18/25 17:54 Print Language: French
[2025-02-18 14:05] VITALS: BP 128/95; PULSE 60; RESP 16; TEMP 36.6; O2SAT 99
--- OUTSIDE RECORDS SUMMARY | 2025-02-18 15:23 | XMS_ITS | Clinical Summary ---
Author Organization [facility] Address [address] [facility] [address] [place] [phone] Phone Care Team Providers Care Field Placement Director Name Role Phone Cherrie Gómez MD Primary [...] Active ferrous sulfate 325 mg (65 mg hamilton iron) tablet Take 325 mg by mouth [...] file Insurance MEDICARE PART A & B [facility] MEDICARE REPLACEMENT MEDICARE PART A & B Member Subscriber Plan / Payer (Ef fective 2023-Present) Name:Dana Winter Member ID:[id number] Relation to Subscriber:Self Name:Dana Winter Subscriber ID:[id number] Payer ID:[id number] Group ID:Not on file Type:Medicare Address: [employer] [address] MEDICARE REPLACEMENT MEDICARE PART A & B Member Subscriber Plan / Payer (Ef fective 2023-Present) Name:Dana Winter Member ID:[id number] Relation to Subscriber:Self Name:Dana Winter Subscriber ID:[id number] Payer ID:[id number] Group ID:Not on file Type:Medicare Address: [employer] [address] [place] [id number] [facility] MEDICARE REPLACEMENT MEDICARE PART A & B Member Subscriber Plan / Payer (Ef fective 2023-Present) Name:Dana Winter Member ID:[id number] Relation to Subscriber:Self Name:Dana Winter Subscriber ID:[id number] Payer ID:[id number] Group ID:Not on file Type:Medicare Address: [employer] [address] [place] [id number] [place] [address] MEDICARE REPLACEMENT JOHNNY SAMSON [id number] MEDICARE PART A & B [facility] MEDICARE REPLACEMENT MEDICARE PART A & B [facility] MEDICARE REPLACEMENT JOHNNY SAMSON [id number] Care Teams Field Placement Director Relationship Specialty Start Date End Date Cherrie Gómez MD [address] [place] [phone] PCP - General Internal Medicine 08/01/23 Additional Source Comments The information contained in this document represents components of the legal health record. It is not the complete legal health record.[facility]
--- OUTSIDE RECORDS SUMMARY | 2025-02-18 15:23 | XMS_ITS | Encounter Summary ---
Author Organization [employer] Address [address] [facility] 7t [place] [address] Care Team Providers Care Advanced Seal Delivery System Name Role Phone Cherrie Gómez MD Primary Care Provide r Reason for Visit * Reason Onset Date Comments FYI 02/18/2025 Encounter Details Date Type Department Care Team ([facility] Contact Info) Description 02/18/2025 Telephone [facility] MEDICINE [address] [place] [address] Cherrie Gómez MD [address] [place] [address] FYI Social History Tobacco Use Types Packs/Day Years Used Date Smoking Tobacco: Every Day Cigarettes Last attempted to quit: 2018 Passive Smoke Exposure: Current Smokeless Tobacco: Never Alcohol Use Standard Drinks/Week Comments Never 0 (1 standard drink = 0.6 oz pur e alcohol) Depression Answer Date Recorded Patient Health Questionnaire-9 Score 4 02/10/2025 Patient Health Questionnaire-9 Score 4 02/10/2025 Last PHQ-9: Questionnaire Data Not on file 0 02/10/2025 Housing Stability Answer Date Recorded What is [...] Answer Date Recorded Patient Health Questionnaire-2 Score 2 02/10/2025 Internet Access Answer Date Recorded Internet Access [...] encounter Miscellaneous Notes * Telephone Encounter - Deedee Kimble - 02/18/2025 1:34 PM EDT TC from pt Daughter stating pt fell at the program and an ambulance was call. Pt will probably see in the ER room documented in this encounter Plan of Treatment Not on file documented as of this encounter Visit Diagnoses Not on filedocumented in this encounter Additional Health Concerns Assessment Noted Time PHQ-9 Depression Total Score: 4 02/11/20 25 2:12 PM EDT documented as of this encounter Care Teams Advanced Seal Delivery System Relationship Specialty Start Date End Date Cherrie Gómez MD [address] [place] [address] PCP - General Family Medicine 11/05/19 [facility] 08/06/19 documented as of this encounter
--- OUTSIDE RECORDS SUMMARY | 2025-02-18 15:23 | XMS_ITS | Encounter Summary ---
Author Organization [employer] Address [address] [facility] 7t [place] [address] Care Team Providers Care Group Insurance Special Agent Name Role Phone Cherrie Gómez [...] on filedocumented in this encounter Care Teams Group Insurance Special Agent Relationship Specialty Start Date End Date Cherrie Gómez MD [address] [place] [id number] PCP - General Family Medicine 11/05/19 [facility] 08/06/19 documented as of this encounter
--- OUTSIDE RECORDS SUMMARY | 2025-02-18 15:23 | XMS_ITS | Encounter Summary ---
Author Organization [employer] Address [address] [facility] 7t [place] [address] Care Team Providers Care Contact Lens Polisher Name Role Phone Cherrie Gómez MD Primary Care Provide r Reason for Visit * Reason Comments Med Refill Encounter Details Date Type Department Care Team ([facility] st Contact Info) Description 04/23/2022 Refill [facility] [address] [place] [address] Nancy Denny DO [address] [place] [address] Anemia, unspecified type Social History Tobacco Use [...] type documented in this encounter Care Teams Contact Lens Polisher Relationship Specialty Start Date End Date Cherrie Gómez MD [address] [place] [address] PCP - General Family Medicine 11/05/19 [facility] 08/06/19 documented as of this encounter
--- OUTSIDE RECORDS SUMMARY | 2025-02-18 15:23 | XMS_ITS | Encounter Summary ---
Author Organization [employer] Address [address] [facility] 7t [place] [address] Care Team Providers Care Bead Builder Name Role Phone Cherrie Gómez MD Primary [...] on filedocumented in this encounter Care Teams Bead Builder Relationship Specialty Start Date End Date Cherrie Gómez MD [address] [place] [address] PCP - General Family Medicine 11/05/19 [facility] 08/06/19 documented as of this encounter
--- OUTSIDE RECORDS SUMMARY | 2025-02-18 15:23 | XMS_ITS | Encounter Summary ---
Author Organization [employer] Address [address] [place] [address] [address]t [place] [address] Care Team Providers Care Massage Coordinator Name Role Phone Cherrie Gómez MD Primary Care Provide r Encounter Details Date Type Department Care Team ([facility] Contact Info) Description 10/17/[address] [facility] Health Information Management [address] [place] [address] Cherrie Gómez MD [address] [place] [address] Social History Tobacco Use Types Packs/Day Years [...] on filedocumented in this encounter Care Teams Massage Coordinator Relationship Specialty Start Date End Date Cherrie Gómez MD [address] [place] [id number] PCP - General Family Medicine 11/05/19 [facility] 08/06/19 documented as of this encounter
--- OUTSIDE RECORDS SUMMARY | 2025-02-18 15:23 | XMS_ITS | Encounter Summary ---
Author Organization [employer] Address [address] [facility] [address] [place] [address] Care Team Providers Care Finisher Plate Name Role Phone Cherrie óGmez MD Primary Care Provide r Encounter Details Date Type Department Care Team ([facility] Contact Info) Description 05/22/2024 Orders Only [facility] MEDICINE [address] [place] [address] Martha Robertson MD [address] [place] [address] Edema, unspecified type; HOWARD (dyspnea on exertion); [...] unspecified whether stage 3a or 3b CKD (HCC) documented in this encounter Additional Health Concerns Assessment Noted Time PHQ-9 Depression Total Score: 20 023 2:53 PM EST documented as of this encounter Care Teams Finisher Plate Relationship Specialty Start Date End Date Cherrie Gómez MD [address] [place] [address] PCP - General Family Medicine 11/05/19 [facility] 08/06/19 documented as of this encounter
--- OUTSIDE RECORDS SUMMARY | 2025-02-18 15:23 | XMS_ITS | Encounter Summary ---
Author Organization [employer] Address [address] [facility] [address] [place] [address] Care Team Providers Care Retail Sales Advisor Name Role Phone Cherrie Gómez MD Primary Care Provide r Encounter Details Date Type Department Care Team ([facility] Contact Info) Description 12/21/2024 Orders Only [facility] MEDICINE [address] [place] [address] Cherrie Gómez MD [address] [place] [address] Social History Tobacco Use Types Packs/Day Years [...] documented as of this encounter Care Teams Retail Sales Advisor Relationship Specialty Start Date End Date Cherrie Gómez MD [address] [place] [address] PCP - General Family Medicine 11/05/19 [facility] 08/06/19 documented as of this encounter
--- OUTSIDE RECORDS SUMMARY | 2025-02-18 15:23 | XMS_ITS | Encounter Summary ---
Author Organization [employer] Address [address] [facility] 7t [place] [address] Care Team Providers Care Air Tucker Name Role Phone Cherrie Gómez MD Primary [...] on filedocumented in this encounter Care Teams Air Tucker Relationship Specialty Start Date End Date Cherrie Gómez MD [address] [place] [phone] PCP - General Family Medicine 11/05/19 [facility] 08/06/19 documented as of this encounter
--- OUTSIDE RECORDS SUMMARY | 2025-02-18 15:24 | XMS_ITS | Encounter Summary ---
Author Organization [employer] Address [address] [facility] 7t [place] [address] Care Team Providers Care Water Inspector Name Role Phone Cherrie Gómez MD Primary Care Provide r Reason for Visit * Reason Onset Date Comments Hospital Follow-up 05/06/2024 Encounter Details Date Type Department Care Team ([facility] Contact Info) Description 05/06/2024 Telephone [facility] MEDICINE [address] [place] [address] Cherrie Gómez MD [address] [place] [address] Hospital Follow-up Social History Tobacco Use Types [...] daughter, MAYURI, reports Pt was [place] [facility] [place] 05[place]06[place]24 for UTI. Pt didn't have [...] prior to booking. Will request information from [facility] [place] 05/06[place]24 be obtained for chart. Protocol [...] call with [facility] cotton buyer , [place] [address]. Call to [phone] no answer, voice mail message left to call [facility] [phone]. Call to [phone], no answer. Left voice message to call [facility] [phone] * Telephone Encounter - Sincere Chang - 05/06/2024 12:09 PM EST Tc from pt requesting a HDF appt. Hospital: [facility] Date of admission: 05/06/2024 Discharge date: 05/06/2024 Diagnosed: UTI *Send message to [facility] Care Coordinators documented in this encounter Plan of Treatment Not on file documented as of this encounter Visit Diagnoses Not on filedocumented in this encounter Additional Health Concerns Assessment Noted Time PHQ-9 Depression Total Score: 20 023 2:53 PM EST documented as of this encounter Care Teams Water Inspector Relationship Specialty Start Date End Date Cherrie Gómez MD [address] [place] [address] PCP - General Family Medicine 11/05/19 [facility] 08/06/19 documented as of this encounter
--- OUTSIDE RECORDS SUMMARY | 2025-02-18 15:24 | XMS_ITS | Encounter Summary ---
Author Organization [employer] Address [address] [facility] 7t [place] [address] Care Team Providers Care Paper Hanger Name Role Phone Cherrie Gómez MD Primary Care Provide r Reason for Visit * Reason Onset Date Comments Med Refill 01/06/2024 Encounter Details Date Type Department Care Team ([facility] Contact Info) Description 01/06/2024 Telephone [facility] MEDICINE [address] [place] [address] Cherrie Gómez MD [address] [place] [address] Med Refill Social History Tobacco Use Types [...] 25 MG tablet To be sent to: [facility]/pharmacy [address] [place] [address] - [address] [place] [address] documented in this encounter Plan of Treatment Not on file documented as of this encounter Visit Diagnoses Not on filedocumented in this encounter Additional Health Concerns Assessment Noted Time PHQ-9 Depression Total Score: 20 023 2:53 PM EST documented as of this encounter Care Teams Paper Hanger Relationship Specialty Start Date End Date Cherrie Gómez MD [address] [place] [address] PCP - General Family Medicine 11/05/19 [facility] 08/06/19 documented as of this encounter
--- OUTSIDE RECORDS SUMMARY | 2025-02-18 15:24 | XMS_ITS | Encounter Summary ---
Author Organization [employer] Address [address] [facility] 7t [place] [address] Care Team Providers Care Paper Stacker Name Role Phone Cherrie Gómez MD Primary Care Provide r Reason for Visit * Reason Onset Date Comments Med Refill 09/04/2024 Encounter Details Date Type Department Care Team ([facility] Contact Info) Description 09/04/2024 Telephone [facility] MEDICINE [address] [place] [address] Cherrie Gómez MD [address] [place] [address] Med Refill Social History Tobacco Use Types [...] 600-10 MG-MCG tablet To be sent to: [facility]/pharmacy [address] [place] [address] - [address] [place] [address] documented in this encounter Plan of Treatment Not on file documented as of this encounter Visit Diagnoses Not on filedocumented in this encounter Additional Health Concerns Assessment Noted Time PHQ-9 Depression Total Score: 0 07/14/19 25 2:16 PM EST documented as of this encounter Care Teams Paper Stacker Relationship Specialty Start Date End Date Cherrie Gómez MD [address] [place] [address] PCP - General Family Medicine 11/05/19 [facility] 08/06/19 documented as of this encounter
--- OUTSIDE RECORDS SUMMARY | 2025-02-18 15:24 | XMS_ITS | Encounter Summary ---
Author Organization [employer] Address [address] [facility] 7t [place] [address] Care Team Providers Care Children Librarian Name Role Phone Cherrie Gómez MD Primary Care Provide r Reason for Visit * Reason Onset Date Comments Nurse Triage 05/05/2024 Encounter Details Date Type Department Care Team ([facility] Contact Info) Description 05/05/2024 Telephone [facility] MEDICINE [address] [place] [address] Cherrie Gómez MD [address] [place] [address] Nurse Triage Social History Tobacco Use Types [...] Also provided daughter with contact for [facility] as a resources for any Therapy or Counseling or concerns for safety. Reviewed [facility] operating hours and that wait times [...] documented as of this encounter Care Teams Children Librarian Relationship Specialty Start Date End Date Cherrie Gómez MD [address] [place] [address] PCP - General Family Medicine 11/05/19 [facility] 08/06/19 documented as of this encounter
--- OUTSIDE RECORDS SUMMARY | 2025-02-18 15:24 | XMS_ITS | Encounter Summary ---
Author Organization [employer] Address [address] [facility] 7t [place] [address] Care Team Providers Care Manager Labor Delivery Name Role Phone Cherrie Gómez MD Primary Care Provide r Reason for Visit * Reason Comments Med Refill Encounter Details Date Type Department Care Team ([facility] st Contact Info) Description 01/09/2023 Refill [facility] MEDICINE [address] [place] [address] Cherrie Gómez MD [address] [place] [address] Social History Tobacco Use Types Packs/Day Years [...] as of this encounter Care Teams Manager Labor Delivery Relationship Specialty Start Date End Date Cherrie Gómez MD [address] [place] [address] PCP - General Family Medicine 11/05/19 [facility] 08/06/19 documented as of this encounter
--- OUTSIDE RECORDS SUMMARY | 2025-02-18 15:24 | XMS_ITS | Encounter Summary ---
Author Organization [employer] Address [address] [facility] 7t [place] [address] Care Team Providers Care Float Phlebotomist Name Role Phone Cherrie Gómez MD Primary Care Provide r Encounter Details Date Type Department Care Team ([facility] Contact Info) Description 07/27/2024 Orders Only [facility] MEDICINE [address] [place] [address] Cherrie Gómez MD [address] [place] [address] Social History Tobacco Use Types Packs/Day Years [...] documented as of this encounter Care Teams Float Phlebotomist Relationship Specialty Start Date End Date Cherrie Gómez MD [address] [place] [address] PCP - General Family Medicine 11/05/19 [facility] 08/06/19 documented as of this encounter
--- OUTSIDE RECORDS SUMMARY | 2025-02-18 15:24 | XMS_ITS | Encounter Summary ---
Author Organization [employer] Address [address] [facility] [address] 7t [place] [address] Care Team Providers Care Plywood Factory Worker Name Role Phone Cherrie Gómez MD Primary Care Provide r Encounter Details Date Type Department Care Team ([facility] Contact Info) Description 02/27/2023 Abstract [facility] MEDICINE [address] [place] [address] Cherrie Gómez MD [address] [place], [place] [phone] Social History Tobacco Use Types Packs/Day Years Used Date Smoking Tobacco: Former Cigarettes Q uit: 2018 Smokeless Tobacco: Never Alcohol Use Standard Drinks/Week Comments Never 0 (1 standard drink = 0.6 oz pur e alcohol) Depression Answer Date Recorded Patient Health Questionnaire-9 Score 16 10/18/2022 Housing Stability Answer Date Recorded What is your housing situation today? I have flo millre 02/27/[address] you li [...] documented as of this encounter Care Teams Plywood Factory Worker Relationship Specialty Start Date End Date Cherrie Gómez MD [address] [place] [address] PCP - General Family Medicine 11/05/19 [facility] 08/06/19 documented as of this encounter
--- OUTSIDE RECORDS SUMMARY | 2025-02-18 15:24 | XMS_ITS | Encounter Summary ---
Author Organization [email or web address] Address [address] [facility] [address] 7t [place] [address] Care Team Providers Care Visual Design Lead Name Role Phone Cherrie Gómez MD Primary Care Provide r Encounter Details Date Type Department Care Team ([facility] Contact Info) Description 03/07/2023 Telephone [facility] MEDICINE [address] [place] [address] Cherrie Gómez MD [address] [place], [place] [phone] Social History Tobacco Use Types Packs/Day Years [...] documented as of this encounter Care Teams Visual Design Lead Relationship Specialty Start Date End Date Cherrie Gómez MD [address] [place] [address] PCP - General Family Medicine 11/05/19 [facility] 08/06/19 documented as of this encounter
--- OUTSIDE RECORDS SUMMARY | 2025-02-18 15:24 | XMS_ITS | Encounter Summary ---
Author Organization [employer] Address [address] [facility] 7t [place] [address] Care Team Providers Care Adzing And Boring Machine Feeder Name Role Phone Cherrie Gómez MD Primary Care Provide r Encounter Details Date Type Department Care Team ([facility] Contact Info) Description 01/29/2023 Telephone [facility] MEDICINE [address] [place] [address] Cierra Andrade LPN Social History Tobacco Use [...] documented as of this encounter Care Teams Adzing And Boring Machine Feeder Relationship Specialty Start Date End Date Cherrie Gómez MD [address] [place] [phone] PCP - General Family Medicine 11/05/19 [facility] 08/06/19 documented as of this encounter
--- OUTSIDE RECORDS SUMMARY | 2025-02-18 15:24 | XMS_ITS | Clinical Summary ---
Author Organization [facility] Address [address] [place] [address] [address] [place]OPEZ [place] [phone] Phone Care Team Providers Care Sales Advisor Name Role Phone Cherrie Gómez [...] 05/02/2023, 07/02/2018, 06/14/2017, Additional history exists Insurance [facility] ([id number]) [place] [id number] [place] [id number] [facility] ([id number]) [place] [phone] Care Teams Sales Advisor Relationship Specialty Start Date End Date Cherrie Gómez MD [address] [place] [address] [place] [phone] PCP - General 05/30/20
--- OUTSIDE RECORDS SUMMARY | 2025-02-18 15:24 | XMS_ITS | Clinical Summary ---
Author Organization [address] [place] [address] Address [address] [place] [address] Phone Care Team Providers Care Log Cooker Name Role Phone Cherrie Gómez MD Primary Care Provide r Surgical History Surgery Date Site/Laterality Comments GASTRIC BYPASS PROCEDURE: GASTRIC BYPASS FOR OBESIT ABDOMINAL SURGERY PROCEDURE: HISTORICAL ABDOMINAL SURGERY BREAST REDUCTION PROCEDURE: ID BREAST REDUCTION CHOLECYSTECTOMY PROCEDURE: ID CHOLECYSTECTOMY FOOT SURGERY PROCEDURE: HISTORICAL FOOT SURGERY; COMMENT: right foot,little toe Medical History Medical History Date Comments Diabetes mellitus ([facility] V 24, CMS/HCC V28) DX:Diabetes [...] Breast Cancer Screening 1955 Colorectal Cancer Screening: Colonoscopy 1957 DTaP,Tdap,and Td Vaccines (1 - Tdap) 1976 Pneumococcal Vaccine: 50+ Ye ars (1 of 2 - PCV) 1976 Zoster Vaccines (1 of 2) 09/27/2007 Hepatitis C Screening 04/22/2022 Medicare Annual Wellness [...] to complete this topic Insurance [facility] MEDICARE Member Subscriber Plan / Payer (Ef fective 2024-Present) Name:Dana Winter Relation to Subscriber:Self Name:Dana Winter Payer ID:[id number] Group ID:[id number] Type:Not on file Address: [address] [place] [phone] MEDICAID - [place] Care Teams Log Cooker Relationship Specialty Start Date End Date Cherrie Gómez MD [address] [place] [phone] PCP - General Internal Medicine 08/04/24
--- OUTSIDE RECORDS SUMMARY | 2025-02-18 15:24 | XMS_ITS | Encounter Summary ---
Author Organization [employer] Address [address] [facility] [address] 7[address] [place] [address] Care Team Providers Care Pharmacy Technician Inpatient Name Role Phone Cherrie Gómez MD Primary Care Provide r Encounter Details Date Type Department Care Team ([facility] Contact Info) Description 01/06/2024 Telephone [facility] [address] [place] [address] Javon Johnson, DDS [address] [place] [address] Social History Tobacco Use Types Packs/Day Years [...] documented as of this encounter Care Teams Pharmacy Technician Inpatient Relationship Specialty Start Date End Date Cherrie Gómez MD [address] [place] [address] PCP - General Family Medicine 11/05/19 [facility] 08/06/19 documented as of this encounter
--- OUTSIDE RECORDS SUMMARY | 2025-02-18 15:24 | XMS_ITS | Clinical Summary ---
Author Organization [employer] Address [address] [facility] 7t [place] [address] Care Team Providers Care Oil Sprayer Name Role Phone Cherrie Gómez MD Primary [...] whether stage 3a or 3b CKD (HCC) USE WITH INSULIN ONCE DAILY at bed [...] whether stage 3a or 3b CKD (HCC) Inject 20 Units under the skin in [...] whether stage 3a or 3b CKD (HCC) USE TO TEST BLOOD SUGAR 3 TIMES DAILY 100 strip 11 10/30/19 25 Active ferrous sulfate 325 (65 Fe) MG tabletIndicatio ns:Anemia, unspecified type TAKE 1 TABLET BY MOUTH EVERY 12 HOURS 180 tablet 1 12/04/19 25 Active metFORMIN (Glucophage) 1000 MG tablet TOME NEELAM TABLETA (1000 MG) POR VIA ORAL CON EL DESAYUNO AND WITH HAND ALTERATIONS SEAMSTRESS 180 tablet 1 12/12/19 25 Active oxybutynin (Ditropan) 5 MG tabletIndicatio ns:Overactive bladder TAKE 1 TABLET BY MOUTH TWICE A DAY 180 tablet 1 01/05/20 25 Active atorvastatin (Lipitor) 80 MG tabletIndicatio ns:Hyperlipidem ia associated with type 2 diabetes mellitus (HCC) TAKE 1 TABLET BY MOUTH ONCE DAILY AT BEDTIME 90 tablet 3 01/15/20 25 Active meclizine (Antivert) 25 MG tablet TAKE 1 TABLET BY MOUTH IN THE MORNING, AT NOON, AND BEDTIME NEEDED FOR DIZZINESS 30 tablet 1 02/02/20 25 Active meclizine (Antivert) 25 MG tablet [...] Retained dental root 01/03/2024 Sick sinus syndrome (CMS/HCC) 12/23/2023 Assessment & Plan (12/31/2024 12:53 PM [...] use of insulin 07/17/2023 Assessment & Plan (02/10/2025 2:51 PM EDT): Continue to follow with endocrinology Assessment & Plan (12/31/2024 12:55 PM EDT): [...] is now being manage by endocrinology tasneem was DC she is just on insulin [...] 12 units. Pt's daughter will contact her Paleontological Helper. Cannot go higher in the [place]ard[place] pt [...] to be done by endocrinology, today glucose [facility] I ordered at office humalog [...] above Unstable gait 06/17/2023 Assessment & Plan (02/10/2025 2:52 PM EDT): Neurology referral placed again today Advised to changing positions slowly, maintain hydration and use her walker every day at all times Assessment & Plan (06/17/2023 4:40 PM EST): As above Multiple food allergies 06/17/2023 Assessment & Plan (06/17/2023 4:40 PM EST): health care law specialist referral Left arm pain 05/02/2023 Encounter for preventive care 05/02/2023 Assessment & Plan (05/02/2023 4:01 PM EST): See HPI Ill-fitting dentures 04/24/2023 Missing teeth, acquired 04/03/2023 Forgetfulness 03/21/2023 Assessment & Plan (02/10/2025 2:51 PM EDT): Neurology referral placed again today Assessment & Plan (10/25/2023 1:56 PM EDT): [...] seems most likely vertigo - following with outcomes manager ,From cards records -pt had a + [...] AST 34,ALT 59 -EKG 11/2022 NSR, normal VA interval, HR 56x', TWI in lead III [...] falls and episodes of dizziness following with outcomes manager From cards records -pt had a + Tilt test -echocardiogram 2018:Essentially normal study,Left Ventricle Normal left ventricular size, thickness, and systolic function. The visually estimated ejection fraction is between 55-60%. Spectral Doppler is indicative of a normal filling pattern. -Pharmacological stress test with Lexiscan injection 2018 :nondiagnostic EKG for ischemia. 07/2022 Hb 11.9, platelets 133 , 10/2022 6.9 ,AST 41,ALT 63,CBG Today is 131 -EKG today NSR, normal VA interval, HR 56x', TWI in lead III [...] staff -advised pt to f w her outcomes manager for ongoing symptoms -I tried calling today pt's outcomes manager but was not able to reach -will [...] referral Colon cancer screening 10/18/2022 Atrial fibrillation (CMS/HCC) 10/17/2022 Stage 3 chronic kidney disease (CMS/HCC) 023 Mixed anxiety and depressive disorder 10/17/2022 Irritable bowel syndrome with diarrhea 3 Onychomycosis of toenail 10/17/2022 Pain in toe 10/17/2022 Complete edentulism, class III 08/17/2022 Neuropathy 08/09/2021 Low blood pressure 08/26/2020 Paroxysmal atrial fibrillation (CMS/HCC) 019 Atrial flutter (CMS/HCC) 02/27/2018 Chronic subdural hematoma ([facility]/HCC) 02/27/2018 Iron deficiency anemia 02/27/2018 Assessment & [...] Encounters Date Type Department Care Team Description 02/18/2025 Telephone [facility] [address] [place] [phone] Cherrie Gómez MD Jerome 02/10/2025 2:15 PM EDT Telemedicine [address] [address] Cherrie Gómez MD Type 2 diabetes mellitus with stage 3 chronic kidney disease, without long-term current use of insulin, unspecified whether stage 3a or 3b CKD ([facility]) (Primary Dx); Unstable gait; Forgetfulness 02/10/2025 Travel 02/09/[address] [address] Cherrie Gómez MD chart prep 02/05/2025 Orders Only GENERIC EXTERNAL DATA DEPARTMENT Provider, Generic External Data 02/04/2025 Telephone [facility] [address] [place] [address] Cherrie Gómez MD ER Follow-up 02/04/2025 Telephone [facility] [address] [place] [address] Cherrie Gómez MD Nurse Triage 02/03/2025 Telephone [facility] [address] [place] [address] Cherrie Gómez MD FYI 01/31/2025 Refill [facility] [address] [place] [address] Cherrie Gómez MD 01/29/2025 Telephone [facility] [address] [place] [address] Cherrie Gómez MD FYI 01/28/2025 Telephone [facility] [address] [place] [address] Cherrie Gómez MD No Show 01/27/2025 Telephone [facility] [address] [place] [address] Cherrie Gómez MD Chart Prep 01/13/2025 Refill [facility] [address] [place] [address] Cherrie Gómez MD Hyperlipidemia associated with type 2 diabetes mellitus ([facility]) 01/04/2025 Orders Only GENERIC EXTERNAL DATA DEPARTMENT Provider, Generic External Data 01/02/2025 Refill [facility] [address] [place] [address] Cherrie Gómez MD Overactive bladder 12/31/2024 11:15 AM EDT Office Visit [facility] [address] [place] [address] Cherrie Gómez MD Failure to thrive in adult (Primary Dx); Type 2 diabetes mellitus with stage 3 chronic kidney disease, without long-term current use of insulin, unspecified whether stage 3a or 3b CKD ([facility]/HCC); Recurrent urinary tract infection; Chronic diastolic heart failure ([facility]/HCC); Sick sinus syndrome ([facility]); Depression with anxiety 12/31/2024 Travel 12/29/2024 Telephone [facility] [address] [place] [address] Cherrie Gómez MD Chart Prep 12/23/2024 Telephone C MEDICINE [address] [place] [address] Cherrie Gómez MD FYI 12/23/2024 Telephone [facility] [address] [place] [address] Cherrie Gómez MD Call Back Request 12/22/2024 Telephone [facility] [address] [place] [address] Cherrie Gómez MD ER Follow-up 12/22/2024 Telephone [facility] [address] [place] [address] Cherrie Gómez MD FYI 12/21/2024 Orders Only [facility] [address] [place] [address] Cherrie Gómez MD 12/21/2024 Telephone [facility] [address] [place] [address] Cherrie Gómez MD Call Back Request 12/11/2024 Refill [facility] MED[facility] [address] [place] [address] Cherrie Gómez MD 12/04/2024 Refill [facility] [address] [place] [address] Cherrie Gómez MD 12/03/2024 Refill [facility] MEDIC[facility] [address] [place] [address] Cherrie Gómez MD Anemia, unspecified type 11/30/2024 Telephone [facility] [address] [place] [address] Cherrie Gómez MD Medication Question from Last 3 Months Immunizations Immunization Administration [...] the past 12 months, has t he [employer], gas, oil or water company threatened to [...] FOBT 1957 Sigmoidoscopy 1957 Eye Exam 09/27/1967 Hepatitis A Vaccines (1 of 2 - [...] Additional history exists SDOH Screening 06/30/2025 06/30/2024 DTaP/Tdap/Td Vaccines (2 - Td or Tdap) 01/08/2026 01/09/2016, 06/07/2014, 01/26/2005, Additional history exists Alcohol/Substance Use Screening 02/10/2026 02/10/2025 Depression Screening 02/10/2026 02/10/2025, 02/11/20 25 Tobacco Screening 02/10/2026 02/10/2025 Dental X-Ray: Full Mouth 02/05/2027 02/05/2024 Hepatitis [...] Associated Diagnosis Comments GLUCOSE, WHOLE BLOOD Routine 02/05/2025 3:43 PM EDT GLUCOSE, WHOLE BLOOD Routine 01/04/2025 3:39 PM EDT POCT GLUCOSE Routine 12/31/2024 11:50 AM EDT Type 2 diabetes mellitus with stage 3 chronic kidney disease, without long-term current use of insulin, unspecified whether stage 3a or 3b CKD (CMS/HCC) POCT GLYCATED HEMOGLOBIN, TOTAL Routine 11/06/2024 1:37 [...] Maintenance Results * (ABNORMAL) Glucose, Whole Blood (02/05/2025 3:43 PM EDT) Only the most recent of2 resultswithin the time period is included. Glucose, Whole Blood 239(H) 60 - 115 mg/dL [facility] Comment:METER #: [id number] 0Testing performed in the Endocrinology Department [address] , [address], [facility]. 02/05/2025 3:43 PM EDT 02/05/2025 3:47 PM EDT Generic External Data Provider LAB BLOOD ORDERAB LES Final Result [facility] [address] [place] [phone] * POCT Glucose (12/31/2024 11:50 AM EDT) Glucose Blood, POC 75 60 - 200 mg/dL QC Media Lot # [id number] Lot# Expiration Date ,429,[id number] Blood Capillary blood specimen / Unknown 12/31/2024 11:50 AM EDT us Cherrie Paredes MD POINT OF CARE TEST ENTER/EDIT ORDERABLES Edited Result - Final * (ABNORMAL) POCT HGB A1C (11/06/2024 1:37 PM EDT) Hemoglobin A1C 6.8(A) 4.0 - 6.0 % QC Media Lot # [id number] Lot# Expiration Date ,332,054 Blood 11/06/2024 1:37 PM EDT us Martha SMITH POINT OF CARE TEST ENTER/EDIT OR DERABLES Final Result * Lipid Panel, Standard (10/18/2023 11:32 AM EDT) Triglycerides 84 <150 mg/dL [facility] Comment:Desirable Triglyceri de: less than 150 mg/dLBorderline High Triglyceride 150-199 mg/dLHigh Triglyceride: 200-499 mg/dLVery High Triglyceride: greater than or equal to 5OO mg/dL Cholesterol 101 <200 mg/dL [facility] Comment:Desirable Cholestero l: less than 200 mg/dLBorderline High Cholesterol: 200-239 mg/dLHigh Cholesterol: greater than 239 mg/dL LDL Cholesterol Calculated 35 <100 mg/dL [facility] Comment:Desirable LDL: less than 100 mg/dLNear Optimal/Above Optimal LDL: 110- 129 mg/dLBorderline High LDL: 130-159 mg/dLHigh LDL: 160-189 mg/dLVery High LDL: greater than or equal to 190 mg/dL HDL Cholesterol 50 >40 mg/dL [facility] Comment:Desirable HDL: great er than 40 mg/dL Note: This HDL assay may give artificially low results in patients with liver disease. 10/18/2023 11:3 2 AM EDT 10/18/2023 11:32 AM EDT Generic External Data Provider LAB BLOOD ORDERAB LES Final Result [facility] [address] [place] [address] [phone] * Hepatitis C Antibody with Reflex to HCV, RNA, Quantitative, Real-Time PCR (02/18/2023 4:28 PM EDT) Hepatitis C Antibody Nonreactive Nonreactive [facility] Comment:Antibodies to HCV no t detected; does not exclude early acuteHCV infection. Blood Venous blood specimen / Unknown 02/18/2023 4:28 PM EDT 02/18/2023 5:32 PM EDT us Cherrie Arzate MD LAB BLOOD ORDERAB LES Final Result [facility] [address] [place] [phone] * THINPREP TIS PAP AND HPV [...] has been evaluated with computer assisted technology. [facility] Master Police Detective: SEE COMMENT [facility] Comment: RXB, CT(ASCP) CT screening location: [place] [address] HPV nRNA E6/E7 Not Detected Not Detected [facility] Comment: Methodology: Advertising Clerk-Mediated Amplification This assay detects E6/E7 viral messenger RNA (mRNA) from 14 high-risk HPV types (16,18,31,33,35,39,45,51,52,56,58,59,66,68). The analytical performance characteristics of this assay have been determined by [employer]. The modifications have not been cleared or approved by the FDA. This assay has been validated pursuant to the CLIA regulations and is used for clinical purposes. For additional information, please refer to http://education.[employer]/faq/OIR467j4 (This link if provided for information/ educational purposes only.) Interpretation/Re sult: Negative for intraepithelial lesion or malignancy. [facility] LMP: NONE [facility] Prev. BX: NONE [facility] Prev. PAP: NONE [facility] SOURCE: None given [facility] Statement Of Adequacy: SEE COMMENT [facility] Comment: Satisfactory for evaluation. Endocervical/transformation zone component present. 09/14/2021 10:2 2 AM EDT us Cherrie Paredes MD LAB PATHOLOGY ORDERAB LES Final Result [facility] [address] [place] [address], * Mammography Report 1 (08/23/2021 3:30 PM [...] Most Recently Relevant to Health Maintenance Insurance [facility] STANDARD [facility] JAIL OPTIONS (HMO D-SNP) DENTAL [facility] Care Teams Oil Sprayer Relationship Specialty Start Date End Date Cherrie Gómez MD [address] [place] [phone] PCP - General Family Medicine 11/05/19 [facility] 08/06/19
--- OUTSIDE RECORDS SUMMARY | 2025-02-18 15:24 | XMS_ITS | Encounter Summary ---
Author Organization [employer] Address [address] [facility] 7[address] [place] [address] Care Team Providers Care Chainstitch Sewing Machine Operator Name Role Phone Cherrie Gómez MD Primary Care Provide r Reason for Visit * Reason Onset Date Comments Referral 06/18/2023 Encounter Details Date Type Department Care Team ([facility] Contact Info) Description 06/18/2023 Telephone [facility] MED[facility]INE [address] [place] [address] Cherrie Gómez MD [address] [place] [address] Referral Social History Tobacco Use Types Packs/Day [...] requesting a location change of referral Location: [address] [place] [phone] Date: N/A Time: N/A Specialty: Memory DX: Memory loss Daughter stated pt already has referral for [facility] neurology but [facility] informed them that pt will need to be seen at a different location due to dx. If any questions Daughter stated feel free to contact at [phone]. documented in this encounter Plan of Treatment Not on file documented as of this encounter Visit Diagnoses Not on filedocumented in this encounter Additional Health Concerns Assessment Noted Time PHQ-9 Depression Total Score: 20 023 2:53 PM EST documented as of this encounter Care Teams Chainstitch Sewing Machine Operator Relationship Specialty Start Date End Date Cherrie Gómez MD [address] [place] [address] PCP - General Family Medicine 11/05/19 [facility] 08/06/19 documented as of this encounter
--- OUTSIDE RECORDS SUMMARY | 2025-02-18 15:24 | XMS_ITS | Encounter Summary ---
Author Organization [employer] Address [address] 7[address] [place] [address] Care Team Providers Care Fermenter Operator Name Role Phone Cherrie Gómez MD Primary Care Provide r Encounter Details Date Type Department [facility] Description 05/09/2023 Abstract [facility] [address] [place] [address] Farheen Rojas, DDS [address] [place] [address] Social History Tobacco Use Types Packs/Day Years [...] documented as of this encounter Care Teams Fermenter Operator Relationship Specialty Start Date End Date Cherrie Gómez MD [address] [place] [address] PCP - General Family Medicine 11/05/19 [facility] 08/06/19 documented as of this encounter
--- OUTSIDE RECORDS SUMMARY | 2025-02-18 15:24 | XMS_ITS | Encounter Summary ---
Author Organization [employer] Address [address] [place] [address] 7t [place] [address] Care Team Providers Care Wash And Greaser Name Role Phone Cherrie Gómez MD Primary Care Provide r Encounter Details Date Type Department Care Team ([facility] Contact Info) Description 01/09/2023 [facility] Health Information Management [address] [place] [address] Cherrie Gómez MD [address] [place] [address] Social History Tobacco Use Types Packs/Day Years [...] documented as of this encounter Care Teams Wash And Greaser Relationship Specialty Start Date End Date Cherrie Gómez MD [address] [place] [phone] PCP - General Family Medicine 11/05/19 [facility] 08/06/19 documented as of this encounter
--- OUTSIDE RECORDS SUMMARY | 2025-02-18 15:24 | XMS_ITS | Encounter Summary ---
Author Organization [employer] Address [address] [place] [address] Care Team Providers Care Soft Water Mechanic Name Role Phone Cherrie Gómez MD Primary Care Provide r Encounter Details Date Type Department Care Team ([facility] Contact Info) Description 04/13/2024 Telephone [facility] MEDICINE [address] [place] [address] Cherrie Gómez MD [address] [place], [place] [phone] Social History Tobacco Use Types Packs/Day Years [...] documented as of this encounter Care Teams Soft Water Mechanic Relationship Specialty Start Date End Date Cherrie Gómez MD [address] [place] [phone] PCP - General Family Medicine 11/05/19 [facility] 08/06/19 documented as of this encounter
--- OUTSIDE RECORDS SUMMARY | 2025-02-18 15:24 | XMS_ITS | Encounter Summary ---
Author Organization [employer] Address [address] [place] [address] Care Team Providers Care Stamp Classifier Name Role Phone Cherrie Gómez MD Primary Care Provide r Reason for Visit * Reason Onset Date Comments Med Refill 08/15/2023 Encounter Details Date Type Department Care Team ([facility] Contact Info) Description 08/15/2023 Telephone [facility] MEDICINE [address] [place] [address] Cherrie Gómez MD [address] [place] [address] Med Refill Social History Tobacco Use Types [...] 25 MG tablet To be sent to: [facility] [address] [place] [address] documented in this encounter Plan of Treatment Not on file documented as of this encounter Visit Diagnoses Not on filedocumented in this encounter Additional Health Concerns Assessment Noted Time PHQ-9 Depression Total Score: 20 023 2:53 PM EST documented as of this encounter Care Teams Stamp Classifier Relationship Specialty Start Date End Date Cherrie Gómez MD [address] [place] [phone] PCP - General Family Medicine 11/05/19 [facility] 08/06/19 documented as of this encounter
--- OUTSIDE RECORDS SUMMARY | 2025-02-18 15:24 | XMS_ITS | Encounter Summary ---
Author Organization [employer] Address [address] [place] [address] Care Team Providers Care Supervisor Poultry Hatchery Name Role Phone Cherrie Gómez MD Primary Care Provide r Reason for Visit * Reason Comments Med Refill Encounter Details Date Type Department Care Team ([facility] st Contact Info) Description 10/19/2022 Refill [facility] [address] [place] [address] Sharon Zavaleta MD [address] [place] [address] Anemia, unspecified type Social History Tobacco Use [...] documented as of this encounter Care Teams Supervisor Poultry Hatchery Relationship Specialty Start Date End Date Cherrie Gómez MD [address] [place] [address] PCP - General Family Medicine 11/05/19 [facility] 08/06/19 documented as of this encounter
--- OUTSIDE RECORDS SUMMARY | 2025-02-18 15:24 | XMS_ITS | Encounter Summary ---
Author Organization [employer] Address [address] [place] [address] Care Team Providers Care Counter Top Assembler Name Role Phone Cherrie Gómez MD Primary Care Provide r Reason for Visit * Reason Comments Med Refill Encounter Details Date Type Department Care Team ([facility] st Contact Info) Description 07/08/2023 Refill [facility] MED[facility]INE [address] [place] [address] Cherrie Gómez MD [address] [place] [address] Social History Tobacco Use Types Packs/Day Years [...] documented as of this encounter Care Teams Counter Top Assembler Relationship Specialty Start Date End Date Cherrie Gómez MD [address] [place] [address] PCP - General Family Medicine 11/05/19 [facility] 08/06/19 documented as of this encounter
--- OUTSIDE RECORDS SUMMARY | 2025-02-18 15:24 | XMS_ITS | Encounter Summary ---
Author Organization [employer] Address [address] [place] [address] Care Team Providers Care Medical Practice Manager Name Role Phone Cherrie Gómez MD Primary Care Provide r Reason for Visit * Reason Comments Med Refill Encounter Details Date Type Department Care Team ([facility] st Contact Info) Description 05/17/2023 Refill [facility] MEDICINE [address] [place] [address] Cherrie Gómez MD [address] [place] [address] Type 2 diabetes mellitus without complications (CMS/HCC) [...] Diagnosis Type 2 diabetes mellitus without complications (HCC) documented in this encounter Additional Health Concerns Assessment Noted Time PHQ-9 Depression Total Score: 20 023 2:53 PM EST documented as of this encounter Care Teams Medical Practice Manager Relationship Specialty Start Date End Date Cherrie Gómez MD [address] [place] [address] PCP - General Family Medicine 11/05/19 [facility] 08/06/19 documented as of this encounter
--- OUTSIDE RECORDS SUMMARY | 2025-02-18 15:24 | XMS_ITS | Encounter Summary ---
Author Organization [employer] Address [address] [facility] 7t [place] [address] Care Team Providers Care Electronic Warfare Linguist Name Role Phone Cherrie Gómez MD Primary Care Provide r Reason for Visit * Reason Onset Date Comments Med Refill 06/04/2024 Encounter Details Date Type Department Care Team ([facility] Contact Info) Description 06/04/2024 Telephone [facility] MEDICINE [address] [place] [address] Cherrie Gómez MD [address] [place] [address] Med Refill Social History Tobacco Use Types [...] 10:13 AM EST Medication was sent to [id number] on 04/13/24 90 day supply with 1 refill. * Telephone Encounter - Jess Lopez - 06/04/2024 9:48 AM EST TC from pt requesting medication refill. Medications needing refill : ferrous sulfate 325 (65 Fe) MG tablet To be sent to: [id number] documented in this encounter Plan of Treatment Not on file documented as of this encounter Visit Diagnoses Not on filedocumented in this encounter Additional Health Concerns Assessment Noted Time PHQ-9 Depression Total Score: 20 023 2:53 PM EST documented as of this encounter Care Teams Electronic Warfare Linguist Relationship Specialty Start Date End Date Cherrie Gómez MD [address] [place] [phone] PCP - General Family Medicine 11/05/19 [facility] 08/06/19 documented as of this encounter
--- OUTSIDE RECORDS SUMMARY | 2025-02-18 15:24 | XMS_ITS | Encounter Summary ---
Author Organization [employer] Address [address] 7[address] [place] [address] Care Team Providers Care Manager Discovery Name Role Phone Cherrie Gómez MD Primary Care Provide r Reason for Visit * Reason Onset Date Comments Med Refill 06/17/2023 Encounter Details Date Type Department Care Team ([facility] Contact Info) Description 06/17/2023 Telephone [facility] MEDICINE [address] [place] [address] Cherrie Gómez MD [address] [place] [address] Med Refill Social History Tobacco Use Types [...] 25 MG tablet To be sent to: [facility]/pharmacy #[id number] [place] [address] - [address] [place] [id number] documented in this encounter Plan of Treatment Not on file documented as of this encounter Visit Diagnoses Not on filedocumented in this encounter Additional Health Concerns Assessment Noted Time PHQ-9 Depression Total Score: 20 023 2:53 PM EST documented as of this encounter Care Teams Manager Discovery Relationship Specialty Start Date End Date Cherrie Gómez MD [address] [place] [id number] PCP - General Family Medicine 11/05/19 [facility] 08/06/19 documented as of this encounter
--- OUTSIDE RECORDS SUMMARY | 2025-02-18 15:24 | XMS_ITS | Encounter Summary ---
Author Organization [employer] Address [address] [facility] 7t [place] [address] Care Team Providers Care Trucking Supervisor Name Role Phone Cherrie Gómez MD Primary Care Provide r Reason for Visit * Reason Onset Date Comments FYI 10/31/2023 Encounter Details Date Type Department Care Team ([facility] Contact Info) Description 10/31/2023 Telephone [facility] MEDICINE [address] [place] [address] Cherrie Gómez MD [address] [place] [address] FYI Social History Tobacco Use Types Packs/Day [...] documented as of this encounter Care Teams Trucking Supervisor Relationship Specialty Start Date End Date Cherrie Gómez MD [address] [place] [address] PCP - General Family Medicine 11/05/19 [facility] 08/06/19 documented as of this encounter
[2025-02-18 17:01] VITALS: BP 142/56; PULSE 60; RESP 18; TEMP 36.4; O2SAT 98
[2025-02-18 17:54] VITALS: BP 142/56; PULSE 60; RESP 18; TEMP 36.4; O2SAT 98
== END 2025-02-18 17:54 | disposition home or self-care (01) ==
PROVIDERS: Emergency Provider Emergency Medicine
DX: S00.93XA Contusion of unspecified part of head, initial encounter (principal); S09.90XA Unspecified injury of head, initial encounter; M54.2 Cervicalgia; R51.9 Headache, unspecified; R07.89 Other chest pain; E11.9 Type 2 diabetes mellitus without complications; X50.1XXA Overexertion from prolonged static or awkward postures, initial encounter; X50.9XXA Other and unspecified overexertion or strenuous movements or postures, initial encounter; Y93.9 Activity, unspecified; Y92.9 Unspecified place or not applicable; Y99.8 Other external cause status; Z79.899 Other long term (current) drug therapy; Z79.4 Long term (current) use of insulin
CPT/HCPCS: 70450; 71250; 72125; 93005; 99284

== ENCOUNTER → 2025-02-18 13:25 | Outpatient (BNV) | payer OTHER, SELFPAY | PROVIDERS: Emergency Provider Emergency Medicine; Visit Provider Internal Medicine | DX: R94.31 Abnormal electrocardiogram [ECG] [EKG] (principal); Z95.0 Presence of cardiac pacemaker | CPT/HCPCS: 93010 ==

== ENCOUNTER → 2025-02-18 13:56 | Outpatient (BNV) | payer OTHER, SELFPAY | PROVIDERS: Emergency Provider Emergency Medicine; Visit Provider Radiology Diagnostic Radiology | DX: S22.089A Unspecified fracture of T11-T12 vertebra, initial encounter for closed fracture (principal); Z04.3 Encounter for examination and observation following other accident; S00.93XA Contusion of unspecified part of head, initial encounter; F03.90 Unspecified dementia, unspecified severity, without behavioral disturbance, psychotic disturbance, mood disturbance, and anxiety; W19.XXXA Unspecified fall, initial encounter | CPT/HCPCS: 70450; 71250; 72125 ==

== ENCOUNTER 2025-03-03 15:29 | Outpatient (AMB) | payer OTHER, SELFPAY ==
--- NOTE | 2025-03-03 15:45 | A.OFFVIS_ITS ---
Vital Signs 03/03/25 15:50 Height 5 ft 3 in Weight 166 lb BMI 29.4 BP 120/70 Blood Pressure Location Rt brachial Position Sitting Pulse 60 Pulse Source Pulse Oximeter Pulse Oximetry (%) 98 Oxygen Delivery Method Room Air Intake Visit Reasons: Follow up medication Intake Note: Est pt for mgmt of irregular BMs. CC; C.O. body dysmorphia and weight mgmt concerns. Pt has been withholding food and losing weight per daughter. Pt was even taken off of her insulin due to hypoglycemia. School Nurse Required: Yes School Nurse Services: School Nurse Offered & Declined Accompanied by: Daughter Allergies [email or web address] Adverse Reaction (Intermediate, Verified 03/03/25 15:45) uti Medication List - Last Reconciled 03/03/25 by VILMA Joe alum-mag hydroxide-simeth 400-400-40 mg/5 mL (Mylanta Maximum Strength) 10 mL PO QID PRN amlodipine 5 mg PO DAILY aspirin (Adult Aspirin Regimen) 81 mg PO DAILY atorvastatin 80 mg PO BEDTIME blood sugar diagnostic (FreeStyle Lite Strips) 2times a day blood-glucose meter (FreeStyle Lite Meter kit) Twice a day blood-glucose sensor (FreeStyle Zunilda 3 Plus Sensor device) As directed for coninuous use change every 15 days blood-glucose,cable tool driller,cont (FreeStyle Zunilda 3 [place]) As directed bupropion HCl XL (Wellbutrin XL) 150 mg PO DAILY calcium carbonate-vitamin D3 600 mg-10 mcg (400 unit) 1 tab PO BID cholecalciferol (vitamin D3) 50 mcg PO DAILY [diabetic shoes extra depth orthopedic shoes ( 1 pair ) with customize heat molded multi density inner soles ( 3 pair) Dispense 1 Sig: As directed DX: And IDDM /polyneuropathy ( E11 0.42 ); hammertoe foot deformity ( M 20.41, and 20.42 ) pre ulcerative skin lesion ( L 85.1 ) Diagnosis ( E11 0.42 ) type 2 diabetes with polyneuropathy] [diabetic shoes extra depth orthopedic shoes ( 1 pair ) with customize heat molded multi density inner soles ( 3 pair) Dispense 1 Sig: As directed DX: And IDDM /polyneuropathy ( E11 0.42 ); hammertoe foot deformity ( M 20.41, and 20.42 ) pre ulcerative skin lesion ( L 85.1 ) Diagnosis ( E11 0.42 ) type 2 diabetes with polyneuropathy] dicyclomine 20 mg PO QID 30 days escitalopram oxalate 20 mg PO DAILY ferrous sulfate 325 mg PO BID flecainide 50 mg PO Q12H furosemide 20 mg PO DAILY gabapentin 300 mg PO BEDTIME glucose (Dex4 Glucose) 16 grams (4 x 4 gram) PO Q15M PRN 30 days MDD 16 tablets insulin glargine (Lantus U-100 Insulin) 8 units subcut QPM insulin syringe-needle U-100 As directed twice daily NS lancets (FreeStyle Lancets) As directed loperamide 2 mg PO Q6H PRN meclizine 25 mg PO DAILY PRN metformin 1,000 mg PO BID 90 days metoclopramide HCl 5 mg PO QID metoprolol succinate ER 25 mg PO DAILY multivitamin 1 tab PO DAILY oxybutynin chloride 5 mg PO BID simethicone (Gas Relief (simethicone)) 125 mg PO BID-QID PRN trazodone 100 mg PO BEDTIME PRN HPI HPI Follow up medication: Details: Assessment & Plan (1) Chronic idiopathic constipation: Code(s): K59.04 - Chronic idiopathic constipation Category: Medical (2) Celiac disease: Comment: with acquired absence of specified part of digestive tract (hx of cholecystectomy, gastric bypass surgery) Code(s): K90.0 - Celiac disease Category: Medical (3) GERD (gastroesophageal reflux disease): Code(s): K21.9 - Gastro-esophageal reflux disease without esophagitis Category: Medical (4) Gastroparesis due to secondary diabetes: Code(s): E13.43 - Other specified diabetes mellitus with diabetic autonomic (poly)neuropathy Category: Medical Plan Monegasque #grddtr translates per pt request They report she goes back and forth between CIC and diarrhea. But they admit she is not good at following her diet in terms of avoiding gluten and lactose. She is quite forgetful and this is a confounding factor. There are larger questions regarding her capacity for self care that are quite concerning. With this, it is severely difficult to devise a care plan. I think we will keep the LInzess out of the mix since the diarrhea is harder than the CIC to deal with. Since she does not seem to have the capacity to control her diet she will move her bowels eventually, r/t her food allergies. She is in an adult day program but they are limited in what they can do to supervise and provide her limited nutrition. At times the pt will become quite uncooperative and refuses to follow her diet despite the family trying to keep gluten free options in the house. Her medications are given by [facility] out of a locked box. She is on a waiting list for neuropsych evaluation...it really sounds like she may need to be in a continuously supervised living situation. She will continue on dicyclomine as needed, famotidine, rabeprazole and simethicone. ROV 6 mos. Depending on her living situation. [facility] VISIT [facility] Medical History (Updated 03/03/25 @ 16:07 by VILMA Joe) Chronic idiopathic constipation Diabetes mellitus type 2, insulin dependent Diastolic dysfunction Hypertension CKD stage 3 secondary to diabetes Gastroparesis due to secondary diabetes Bradycardia Burning with urination Encounter for monitoring anti-arrhythmic therapy Essential hypertension Abdominal bloating Small intestinal bacterial overgrowth Nausea and vomiting Dysphagia Periumbilical abdominal pain Globus sensation Orthostatic hypotension Presence of Watchman left atrial appendage closure device Subdural hematoma Syncope and collapse PAF (paroxysmal atrial fibrillation) Vitamin D deficiency Anxiety Depression Overweight (BMI 25.0-29.9) Dyslipidemia Non-toxic multinodular goiter Diabetic polyneuropathy associated with type 2 diabetes mellitus Diabetic retinopathy associated with type 2 diabetes mellitus Diabetes type 2, controlled Surgical History Hx of breast reduction, elective History of cholecystectomy H/O esophagogastroduodenoscopy Hx of colonoscopy History of gastric bypass History of gastric bypass Hx of hand surgery Family History Father CVD (cardiovascular disease) Mother Diabetes Social History Household Members: Spouse Alcohol intake: never Patient Tobacco Use Status: Former Tobacco user Tobacco use type: Cigarette Review of Systems Const Denies fatigue, Denies fever(s), Denies night sweats, Denies poor appetite and Reports weight loss ENT Reports Normal hearing present, Denies dental pain, Denies dysphagia, Denies hearing loss, Denies mouth pain, Denies odynophagia, Denies throat swelling, Denies tongue swelling and Reports other (Dentition adequate) Card Reports no additional complaints Resp Reports no additional complaints GI Details: Denies abdominal pain, Denies melena, Reports bloating, Denies hematochezia, Denies constipation, Denies GI cramping, Denies dysphagia, Denies excessive flatus, Denies early satiety, Reports heartburn, Denies diarrhea, Reports loose stools, Denies nausea, Denies odynophagia, Denies vomiting and Denies hematemesis Skin/Breast Denies pruritus, Denies lesions, Denies rash and Denies jaundice Neuro Reports Normal hearing present, Denies Abnormal speech present and Reports memory loss Psych Reports memory loss Endo Denies fatigue Aller/Immun Denies throat swelling and Denies tongue swelling Physical Exam Vital Signs: Last Vital Signs Pulse 60 03/03/25 15:50 BP 120/70 03/03/25 15:50 Pulse Ox 98 03/03/25 15:50 Oxygen Delivery Method Room Air 03/03/25 15:50 BMI result Body Mass Index 29.4 Const General: cooperative, no acute distress, well developed and well groomed Nutritional Appearance: well nourished and obese Orientation/consciousness: oriented to person, oriented to place and oriented to time Limitations: altered mental status and language barrier HEENT Head: Yes normocephalic and Yes atraumatic Eyes General: appearance normal, both eyes and all related structures Pupils: Equal, round and reactive pupils present Neck Neck: Yes normal visual inspection and Yes no lymphadenopathy Thyroid: Thyroid normal Resp Effort & Inspection: normal respiratory effort and able to speak in complete sentences Auscultation: clear to auscultation bilaterally Cardio Rate: regular rate Rhythm: regular rhythm Heart sounds: Normal, physiologic split S2 sound present Peripheral pulses: radial pulses present and posterior tibial pulses present GI Inspection: No distended, Yes Abdominal panniculus present and Yes obesity Palpation (GI): Soft to palpation, nontender, no guarding, not rigid and No hepatosplenomegaly present Percussion: Yes normal to percussion Auscultation: normal bowel sounds Rectal Exam - Female: deferred Skin General skin exam: no rashes or lesions noted, turgor normal, skin not dry, no jaundice, No spider nevi and no striae Rashes: no rashes Nails: normal Neuro General: oriented to person, oriented to place and oriented to time Cranial nerves: Yes Equal, round and reactive pupils present and Yes Normal hearing present Speech: No Abnormal speech present Extrem General: Yes normal to inspection, No clubbing, No cyanosis and No edema Psych Appearance: grossly normal and well kempt Mental Status: other Speech and movement: Normal speech and movement present Affect: normal affect Attitude: cooperative Thought process: Other thought process findings present Thought content: other Insight: Poor insight present (Psych) Judgement: Poor judgement present (Psych) Assessment & Plan Assessment & Plan (1) Celiac disease: Comment: with acquired absence of specified part of digestive tract (hx of cholecystectomy, gastric bypass surgery) Code(s): K90.0 - Celiac disease Category: Medical (2) GERD (gastroesophageal reflux disease): Code(s): K21.9 - Gastro-esophageal reflux disease without esophagitis Category: Medical (3) Gastroparesis due to secondary diabetes: Code(s): E13.43 - Other specified diabetes mellitus with diabetic autonomic (poly)neuropathy Category: Medical (4) Abdominal cramping: Code(s): R10.9 - Unspecified abdominal pain Category: Medical Plan Moldovan #AUTOMATED ACCESS SYSTEMS TECHNICIAN translates per pt request She will continue on REGLAN, dicyclomine as needed, famotidine, rabeprazole and simethicone. Her AUTOMATED ACCESS SYSTEMS TECHNICIAN tells me that ?she is being stubborn. ? Apparently she decided she was getting too fat and has not been eating much. This is cause problem with her insulin control and she was developing hypoglycemia and had several falls recently. The patient denies having any belly pain, nausea vomiting, diarrhea or constipation. Historically, there has been concern for her capacity for self-care and she was supposed to have a neurocognitive exam to evaluate this. In the past she has not been very good it at avoiding gluten and lactose which she knows causes her diarrhea. It has been unclear as to whether this is stubbornness or a mental capacity problem. She has not yet had her neurocognitive exam. She continues to complain of bloating. However, I tried to educate her that her colon is going to feel bloated if she is eating foods that irritate it. There isn't much I can do to offset this. At least she does not seem to be having any severe fecal incontinence. We will continue the current medication regimen and re-evaluate her in 6 months. Medications: Refilled simethicone (Gas Relief (simethicone)) 125 mg PO BID-QID PRN 120 tabs 6RF abdominal distention dicyclomine 20 mg PO QID 120 tabs 6RF 30 days R10.9 - Unspecified abdominal pain metoclopramide HCl 5 mg PO QID 120 tabs 6RF E11.42 - Type 2 diabetes mellitus with diabetic polyneuropathy, R11.2 - Nausea with vomiting, unspecified Discontinued alum-mag hydroxide-simeth 400-400-40 mg/5 mL (Mylanta Maximum Strength) Discontinued Reason: Doctor's Order 10 mL PO QID PRN 3,000 mL 3RF chest pain K21.9 - Gastro-esophageal reflux disease without esophagitis Coding Level of Care Code Est Pt Level 3 (49359) Diagnoses Celiac disease K90.0 GERD (gastroesophageal reflux disease) K21.9 Gastroparesis due to secondary diabetes E13.43 Abdominal cramping R10.9
[2025-03-03 15:50] VITALS: BP 120/70; PULSE 60; O2SAT 98; BMI 29.4
--- OUTSIDE RECORDS SUMMARY | 2025-03-03 18:59 | XMS_ITS | Encounter Summary ---
Author Organization [employer] Address [address] 7t [place] [address] Care Team Providers Care [place] Seamer Name Role Phone Cherrie Gómez MD Primary [...] on filedocumented in this encounter Care Teams [place] Seamer Relationship Specialty Start Date End Date Cherrie Gómez MD [address] [place] [id number] PCP - General Family Medicine 11/05/19 [facility] 08/06/19 documented as of this encounter
--- OUTSIDE RECORDS SUMMARY | 2025-03-03 18:59 | XMS_ITS | Encounter Summary ---
Author Organization [employer] Address [address] [facility] [address]t [place] [address] Care Team Providers Care Timber Treatment Plant Operator Name Role Phone Cherrie Gómez MD Primary Care Provide r Reason for Visit * Reason Onset Date Comments Med Refill 09/04/2024 Encounter Details Date Type Department Care Team ([facility] Contact Info) Description 09/04/2024 Telephone [facility] MEDICINE [address] [place] [address] Cherrie Gómez MD [address] [place] [address] Med Refill Social History Tobacco Use Types [...] 600-10 MG-MCG tablet To be sent to: [facility]/pharmacy #[id number] [place] [address] - [address] [place] [address] documented in this encounter Plan of Treatment Not on file documented as of this encounter Visit Diagnoses Not on filedocumented in this encounter Additional Health Concerns Assessment Noted Time PHQ-9 Depression Total Score: 0 07/14/19 25 2:16 PM EST documented as of this encounter Care Teams Timber Treatment Plant Operator Relationship Specialty Start Date End Date Cherrie Gómez MD [address] [place] [address] [phone] PCP - General Family Medicine 11/05/19 [facility] 08/06/19 documented as of this encounter
--- OUTSIDE RECORDS SUMMARY | 2025-03-03 18:59 | XMS_ITS | Encounter Summary ---
Author Organization [employer] Address [address] [place] [address] Care Team Providers Care Fleece Tier Name Role Phone Cherrie Gómez MD Primary Care Provide r Encounter Details Date Type Department Care Team ([facility] Contact Info) Description 05/22/2024 Orders Only [facility] MEDICINE [address] [place] [address] Martha Robertson MD [address] [place] [address] Edema, unspecified type; HOWARD (dyspnea on exertion); [...] documented as of this encounter Care Teams Fleece Tier Relationship Specialty Start Date End Date Cherrie Gómez MD [address] [place] [address] PCP - General Family Medicine 11/05/19 [facility] 08/06/19 documented as of this encounter
--- OUTSIDE RECORDS SUMMARY | 2025-03-03 18:59 | XMS_ITS | Encounter Summary ---
Author Organization [employer] Address [address] [facility] 7t [place] [address] Care Team Providers Care Bench Precision Assembler Name Role Phone Cherrie Gómez MD Primary Care Provide r Reason for Visit * Reason Onset Date Comments Nurse Triage 05/05/2024 Encounter Details Date Type Department Care Team ([facility] st Contact Info) Description 05/05/2024 Telephone [facility] MEDICINE [address] [place] [address] Cherrie Gómez MD [address] [place] [address] Nurse Triage Social History Tobacco Use Types [...] concerns. Also provided daughter with contact for [facility] as a resources for any Therapy or Counseling or concerns for safety. Reviewed [facility] operating hours and that wait times [...] documented as of this encounter Care Teams Bench Precision Assembler Relationship Specialty Start Date End Date Cherrie Gómez MD [address] [place] [address] PCP - General Family Medicine 11/05/19 [facility] 08/06/19 documented as of this encounter
--- OUTSIDE RECORDS SUMMARY | 2025-03-03 18:59 | XMS_ITS | Encounter Summary ---
Author Organization [employer] Address [address] [facility] [address]t [place] [address] Care Team Providers Care Mud Mixer Name Role Phone Cherrie Gómez MD Primary Care Provide r Reason for Visit * Reason Onset Date Comments Med Refill 03/03/2025 Encounter Details Date Type Department Care Team ([facility] Contact Info) Description 03/03/2025 Telephone [facility] MEDICINE [address] [place] [address] Cherrie Gómez MD [address] [place] [address] Med Refill Social History Tobacco Use Types [...] Telephone Encounter - Yasemin Mc LPN - 03/03/2025 4:19 PM EDT Medication has been pended * Telephone Encounter - Rock Muller - 03/03/2025 4:16 PM EDT TC from pt requesting medication refill. Medications needing refill : meclizine (Antivert) 25 MG tablet To be sent to: [facility]/pharmacy #[address] [place] [address] documented in this encounter Plan of Treatment Not on file documented as of this encounter Visit Diagnoses Not on filedocumented in this encounter Additional Health Concerns Assessment Noted Time PHQ-9 Depression Total Score: 4 02/11/20 2:12 PM EDT documented as of this encounter Care Teams Mud Mixer Relationship Specialty Start Date End Date Cherrie Góemz MD [address] [place] [phone] PCP - General Family Medicine 11/05/19 [facility] 08/06/19 documented as of this encounter
--- OUTSIDE RECORDS SUMMARY | 2025-03-03 18:59 | XMS_ITS | Encounter Summary ---
Author Organization [employer] Address 75 [facility] 7t [place] [address] Care Team Providers Care Lamp Cleaner Street Light Name Role Phone Cherrie Gómez MD Primary Care Provide r Reason for Visit * Reason Onset Date Comments Med Refill 08/15/2023 Encounter Details Date Type Department Care Team ([facility] Contact Info) Description 08/15/2023 Telephone [facility] MEDICINE [address] [place] [address] Cherrie Gómez MD [address] [place] [address] Med Refill Social History Tobacco Use Types [...] 25 MG tablet To be sent to: [facility] [address] [place] [address] documented in this encounter Plan of Treatment Not on file documented as of this encounter Visit Diagnoses Not on filedocumented in this encounter Additional Health Concerns Assessment Noted Time PHQ-9 Depression Total Score: 20 023 2:53 PM EST documented as of this encounter Care Teams Lamp Cleaner Street Light Relationship Specialty Start Date End Date Cherrie Gómez MD [address] [place] [address] PCP - General Family Medicine 11/05/19 [facility] 08/06/19 documented as of this encounter
--- OUTSIDE RECORDS SUMMARY | 2025-03-03 18:59 | XMS_ITS | Clinical Summary ---
Author Organization [employer] Address 75 [facility] 7t [place] [address] Care Team Providers Care Creosoting Engineer Name Role Phone Cherrie Gómez MD Primary Care Provide r Allergies Active Allergy Reactions Criticality Noted Date Comments Empagliflozin High 12/03/2023 Other Reaction(s): uti Other Reaction(s): Unknown Outside Source Comment: Other Reaction(s): uti Oxycodone-Acetaminophen Itching 06/09/2012 Medications amLODIPine (Norvasc) 5 MG tablet 3 Active flecainide (Tambocor) 50 MG tablet Take [...] blood sugar 3 times daily 100 each 4 Active Alcohol Swabs (CVS Prep) 70 % pads USE TO TEST BLOOD SUGAR 3 TIMES DAILY 100 each 5 4 Active insulin pen needle (BD Pen Needle Vaishali 2nd Gen) 32G x 4 mm miscIndications: Type 2 diabetes mellitus with stage 3 chronic kidney disease, without long-term current use of insulin, unspecified whether stage 3a or 3b CKD (HCC) USE WITH INSULIN ONCE DAILY at bed time 100 each 3 4 Active furosemide (Lasix) 20 MG tabletIndication s:Edema, unspecified type,HOWARD (dyspnea on exertion),Weight gain Take 1 tablet (20 mg) by mouth if needed each day (weight gain > 3 lbs in one day). 90 tablet 5 05/22/19 26 Active escitalopram (Lexapro) 10 MG tablet Take 2 tablets (20 mg) by mouth Once per day. 180 tablet 5 Active insulin glargine (Lantus SoloStar) 100 UNIT/ML penIndications:T ype 2 diabetes mellitus with stage 3 chronic kidney disease, without long-term current use of insulin, unspecified whether stage 3a or 3b CKD (HCC) Inject 20 Units under the skin in the morning. 15 mL 1 5 Active cholecalciferol (D3) 50 MCG (2000 UT) tablet Take 2,000 Units by mouth Once per day. TOME NEELAM TABLETA POR VIA ORAL EN LA MANANA 90 tablet 1 5 Active Calcium Carb-Cholecalcif ángela 600-10 MG-MCG tablet Take 1 tablet by mouth 2 times daily. TAKE 1 TABLET BY MOUTH TWICE A DAY 180 tablet 1 5 Active FREESTYLE LITE test stripIndications :Type 2 diabetes mellitus with stage 3 chronic kidney disease, without long-term current use of insulin, unspecified whether stage 3a or 3b CKD (HCC) USE TO TEST BLOOD SUGAR 3 TIMES DAILY 100 strip 11 5 Active ferrous sulfate 325 (65 Fe) MG tabletIndication s:Anemia, unspecified type TAKE 1 TABLET BY MOUTH EVERY 12 HOURS 180 tablet 1 5 Active metFORMIN (Glucophage) 1000 MG tablet TOME NEELAM TABLETA (1000 MG) POR VIA ORAL CON EL DESAYUNO AND WITH AMUSEMENT PARK RIDE MECHANIC 180 tablet 1 5 Active oxybutynin (Ditropan) 5 MG tabletIndication s:Overactive bladder TAKE 1 TABLET BY MOUTH TWICE A DAY 180 tablet 1 5 Active atorvastatin (Lipitor) 80 MG tabletIndication s:Hyperlipidemia associated with type 2 diabetes mellitus (HCC) TAKE 1 TABLET BY MOUTH ONCE DAILY AT BEDTIME 90 tablet 3 5 Active meclizine (Antivert) 25 MG tablet TAKE 1 TABLET BY MOUTH IN THE MORNING, AT NOON, AND BEDTIME NEEDED FOR DIZZINESS 30 tablet 1 5 Active Active Problems Problem Noted Date Diagnosed [...] 12 units. Pt's daughter will contact her Senior Warehouse Clerk. Cannot go higher in the [place] pt [...] to be done by endocrinology, today glucose [facility] I ordered at office humalog 10U [...] Assessment & Plan (06/17/2023 4:40 PM EST): carburetor specialist referral Left arm pain 05/02/2023 Encounter [...] seems most likely vertigo - following with road freight conductor ,From cards records -pt had a + [...] AST 34,ALT 59 -EKG 11/2022 NSR, normal GA interval, HR 56x', TWI in lead III [...] falls and episodes of dizziness following with road freight conductor From cards records -pt had a + [...] Today is 131 -EKG today NSR, normal GA interval, HR 56x', TWI in lead III [...] staff -advised pt to f w her road freight conductor for ongoing symptoms -I tried calling today pt's road freight conductor but was not able to reach -will [...] Atrial flutter (CMS/HCC) 02/27/2018 Chronic subdural hematoma (CMS/HCC) 02/27/2018 Iron deficiency anemia 02/27/2018 Assessment & [...] Encounters Date Type Department Care Team Description 03/03/2025 Telephone [facility] MEDICINE [address] [place] [phone] Cherrie Gómez MD Med Refill 03/03/2025 Refill [facility] [address] [place] [address] Cherrie Gómez MD 02/26/2025 Telephone [facility] [address] [place] [address] Cherrie Gómez MD FYI 02/18/2025 Telephone [facility] [address] [place] [address] Cherrie Gómez MD FYI 02/10/2025 2:15 PM EDT Telemedicine [facility] [address] [place] [address] Cherrie Gómez MD Type 2 diabetes mellitus with stage 3 chronic kidney disease, without long-term current use of insulin, unspecified whether stage 3a or 3b CKD (CMS/[facility]) (Primary Dx); Unstable gait; Forgetfulness 02/10/2025 Travel 02/09/2025 Telephone [facility] MEDICINE [address] [place] [address] Cherrie Gómez MD chart prep 02/05/2025 Orders Only GENERIC EXTERNAL DATA DEPARTMENT Provider, Generic External Data 02/04/2025 Telephone [facility] MEDICINE [address] [place] [address] Cherrie Gómez MD ER Follow-up 02/04/2025 Telephone [facility] [address] [place] [address] Cherrie Gómez MD Nurse Triage 02/03/2025 Telephone [facility] [address] [place] [address] Cherrie Gómez MD FYI 01/31/2025 Refill [facility] [address] [place] [address] Cherrie Gómez MD 01/29/2025 Telephone [facility] [address] [place] [address] Cherrie Gómez MD FYI 01/28/2025 Telephone [facility] [address] [place] [address] Cherrie Gómez MD No Show 01/27/2025 Telephone [facility] [address] [place] [address] Cherrie Gómez MD Chart Prep 01/13/2025 Refill [facility] MED[facility]INE [address] [place] [address] Cherrie Gómez MD Hyperlipidemia associated with type 2 diabetes mellitus ([facility]) 01/04/2025 Orders Only GENERIC EXTERNAL DATA DEPARTMENT Provider, Generic External Data 01/02/2025 Refill [facility] [address] [place] [address] Cherrie Gómez MD Overactive bladder 12/31/2024 11:15 AM EDT Office Visit [facility] [address] [place] [address], [place] [address] Cherrie Gómez MD Failure to thrive in adult (Primary Dx); Type 2 diabetes mellitus with stage 3 chronic kidney disease, without long-term current use of insulin, unspecified whether stage 3a or 3b CKD (CMS/HCC); Recurrent urinary tract infection; Chronic diastolic heart failure (CMS/HCC); Sick sinus syndrome (CMS/HCC); Depression with anxiety 12/31/2024 Travel 12/29/2024 Telephone [facility] MEDICINE [address] [place] [address] Cherrie Gómez MD Chart Prep 12/23/2024 Telephone [facility] MEDICINE [address] [place] [address] Cherrie Gómez MD FYI 12/23/2024 Telephone [facility] MEDICINE [address] [place] [address] Cherrie Gómez MD Call Back Request 12/22/2024 Telephone [facility] MEDICINE [address] [place] [address] Cherrie Gómez MD ER Follow-up 12/22/2024 Telephone [facility] MEDICINE [address] [place] [address] Cherrie Gómez MD FYI 12/21/2024 Orders Only [facility] MEDICINE [address] [place] [address] Cherrie Gómez MD 12/21/2024 Telephone [facility] MEDICINE [address] [place] [address] Cherrie Gómez MD Call Back Request 12/11/2024 Refill [facility] [address] [place] [address] Cherrie Gómez MD 12/04/2024 Refill [facility] [address] [place] [address] Cherrie Gómez MD 12/03/2024 Refill [facility] [address] [place] [address] Cherrie Gómez MD Anemia, unspecified type from Last 3 Months Immunizations Immunization Administration [...] 02/10/2026 02/10/2025 Depression Screening 02/10/2026 02/10/2025, 02/11/20 Tobacco Screening 02/10/2026 02/10/2025 Dental X-Ray: Full [...] Whole Blood 239(H) 60 - 115 mg/dL [facility] Comment:METER #: [id number] 0Testing performed in the Endocrinology Department [address] , [address], [facility]. 02/05/2025 3:43 PM EDT 02/05/2025 3:47 PM EDT us Generic External Data Provider LAB BLOOD ORDERAB LES Final Result [facility] [address] [place] [address] [phone] * POCT Glucose (12/31/2024 11:50 AM EDT) Glucose Blood, POC 75 60 - 200 mg/dL QC Media Lot # [id number] Lot# Expiration Date ,620,467 Blood Capillary blood specimen / Unknown 12/31/2024 11:50 AM EDT us Cherrie Paredes MD POINT OF CARE TEST ENTER/EDIT ORDERABLES Edited Result - Final * (ABNORMAL) POCT HGB A1C (11/06/2024 1:37 PM EDT) Hemoglobin A1C 6.8(A) 4.0 - 6.0 % QC Media Lot # [id number] Lot# Expiration Date ,008,278 Blood 11/06/2024 1:37 PM EDT us Martha Londono ANP POINT OF CARE TEST ENTER/EDIT OR DERABLES Final Result * Lipid Panel, Standard (10/18/2023 11:32 AM EDT) Triglycerides 84 <150 mg/dL [facility] Comment:Desirable Triglyceri de: less than 150 mg/dLBorderline High Triglyceride 150-199 mg/dLHigh Triglyceride: 200-499 mg/dLVery High Triglyceride: greater than or equal to 5OO mg/dL Cholesterol 101 <200 mg/dL [facility] Comment:Desirable Cholestero l: less than 200 mg/dLBorderline High Cholesterol: 200-239 mg/dLHigh Cholesterol: greater than 239 mg/dL LDL Cholesterol Calculated 35 <100 mg/dL [facility] Comment:Desirable LDL: less than 100 mg/dLNear Optimal/Above Optimal LDL: 110- 129 mg/dLBorderline High LDL: 130-159 mg/dLHigh LDL: 160-189 mg/dLVery High LDL: greater than or equal to 190 mg/dL HDL Cholesterol 50 >40 mg/dL [facility] Comment:Desirable HDL: great er than 40 mg/dL Note: This HDL assay may give artificially low results in patients with liver disease. 10/18/2023 11:3 2 AM EDT 10/18/2023 11:32 AM EDT us Generic External Data Provider LAB BLOOD ORDERAB LES Final Result [place] [address] [phone] * Hepatitis C Antibody with Reflex to HCV, RNA, Quantitative, Real-Time PCR (02/18/2023 4:28 PM EDT) Hepatitis C Antibody Nonreactive Nonreactive [facility] Comment:Antibodies to HCV no t detected; does not exclude early acuteHCV infection. Blood Venous blood specimen / Unknown 02/18/2023 4:28 PM EDT 02/18/2023 5:32 PM EDT Cherrie Arzate MD LAB BLOOD ORDERAB LES Final Result [facility] [address] [place] [phone] * THINPREP TIS PAP AND HPV [...] been evaluated with computer assisted technology. [facility] Soil Specialist: SEE COMMENT [facility] Comment: RXB, CT(ASCP) CT screening location: [place] [address] HPV nRNA E6/E7 Not Detected Not Detected [facility] [employer] Comment: Methodology: Feedmobile Driver-Mediated Amplification This assay detects E6/E7 viral messenger RNA (mRNA) from 14 high-risk HPV types (16,18,31,33,35,39,45,51,52,56,58,59,66,68). The analytical performance characteristics of this assay have been determined by [employer]. The modifications have not been cleared or approved by the FDA. This assay has been validated pursuant to the CLIA regulations and is used for clinical purposes. For additional information, please refer to http://education.Screwpulp.3Scan/faq/[email or web address] (This link if provided for information/ educational purposes only.) Interpretation/Re sult: Negative for intraepithelial lesion or malignancy. [facility] LMP: NONE [facility] Prev. BX: NONE [facility] Prev. PAP: NONE [facility] SOURCE: None given [facility] Statement Of Adequacy: SEE COMMENT [facility] Comment: Satisfactory for evaluation. Endocervical/transformation zone component present. 09/14/2021 10:2 2 AM EDT Cherrie Paredes MD LAB PATHOLOGY ORDERAB LES Final Result [facility] [address] * Mammography Report 1 (08/23/2021 3:30 [...] Most Recently Relevant to Health Maintenance Insurance [facility] STANDARD [facility] - DCO [facility] SENIOR LIVING OPTIONS (HMO D-SNP) DENTAL - [facility] Care Teams Creosoting Engineer Relationship Specialty Start Date End Date Cherrie Gómez MD [address] [place] [address] PCP - General Family Medicine 11/05/19 [facility] 08/06/19
--- OUTSIDE RECORDS SUMMARY | 2025-03-03 18:59 | XMS_ITS | Encounter Summary ---
Author Organization [employer] Address [address] [facility] [address] 7t [place] [address] Care Team Providers Care Press Catcher Name Role Phone Cherrie Gómez MD Primary Care Provide r Reason for Visit * Reason Comments Med Refill Encounter Details Date Type Department Care Team ([facility] Contact Info) Description 03/03/2025 Refill [facility] MEDICINE [address] [place] [address] Cherrie Gómez MD [address] [place] [address] Social History Tobacco Use Types Packs/Day Years [...] Encounter - Yasemin Mc LPN - 03/03/2025 4:18 PM EDT Last seen 02.10.25 documented in this encounter Plan of Treatment Not on file documented as of this encounter Visit Diagnoses Not on filedocumented in this encounter Additional Health Concerns Assessment Noted Time PHQ-9 Depression Total Score: 4 02/11/20 25 2:12 PM EDT documented as of this encounter Care Teams Press Catcher Relationship Specialty Start Date End Date Cherrie Gómez MD [address] [place] [address] PCP - General Family Medicine 11/05/19 [facility] 08/06/19 documented as of this encounter
--- OUTSIDE RECORDS SUMMARY | 2025-03-03 18:59 | XMS_ITS | Encounter Summary ---
Author Organization [employer] Address 75 [facility] 7t [place] [address] Care Team Providers Care Care Transition Mgr Name Role Phone Cherrie Gómez MD Primary Care Provide r Reason for Visit * Reason Comments Med Refill Encounter Details Date Type Department Care Team ([facility] st Contact Info) Description 01/09/2023 Refill [facility] MEDICINE [address] [place] [address] Cherrie Gómez MD [address] [place] [address] Social History Tobacco Use Types Packs/Day Years [...] documented as of this encounter Care Teams Care Transition Mgr Relationship Specialty Start Date End Date Cherrie Gómez MD [address] [place] [address] PCP - General Family Medicine 11/05/19 [facility] 08/06/19 documented as of this encounter
--- OUTSIDE RECORDS SUMMARY | 2025-03-03 18:59 | XMS_ITS | Encounter Summary ---
Author Organization [employer] Address [address] [facility] [address] 7t [place] [address] Care Team Providers Care Crossing Tender Name Role Phone Cherrie Gómez MD Primary Care Provide r Encounter Details Date Type Department Care Team ([facility] Contact Info) Description 01/06/2024 Telephone [facility] [address] [place] [address] Javon Johnson, OSCAR [address] [place] [address] Social History Tobacco Use Types Packs/Day Years [...] documented as of this encounter Care Teams Crossing Tender Relationship Specialty Start Date End Date Cherrie Gómez MD [address] [place] [address] PCP - General Family Medicine 11/05/19 [facility] 08/06/19 documented as of this encounter
--- OUTSIDE RECORDS SUMMARY | 2025-03-03 18:59 | XMS_ITS | Encounter Summary ---
Author Organization [employer] Address 75 [facility] 7t [place] [address] Care Team Providers Care Rollway Man Name Role Phone Cherrie Gómez MD Primary Care Provide r Encounter Details Date Type Department Care Team ([facility] Contact Info) Description 01/29/2023 Telephone [facility] MEDICINE [address] [place], [place] [phone] Cierra Andrade LPN Social History Tobacco Use [...] documented as of this encounter Care Teams Rollway Man Relationship Specialty Start Date End Date Cherrie Gómez MD 230 [place], [place] [phone] PCP - General Family Medicine 11/05/19 [facility] 08/06/19 documented as of this encounter
--- OUTSIDE RECORDS SUMMARY | 2025-03-03 18:59 | XMS_ITS | Encounter Summary ---
Author Organization [employer] Address [address] [place] [address] 7t [place] [address] Care Team Providers Care Magician Helper Name Role Phone hCerrie Gómez MD Primary Care Provide r Encounter Details Date Type Department Care Team ([facility] Contact Info) Description 10/17/2022 [facility] Health Information Management [address] [place] [address] Cherrie Gómez MD [address] [place] [address] Social History Tobacco Use Types Packs/Day Years [...] on filedocumented in this encounter Care Teams Magician Helper Relationship Specialty Start Date End Date Cherrie Gómez MD [address] [place] [address] PCP - General Family Medicine 11/05/19 [facility] 08/06/19 documented as of this encounter
--- OUTSIDE RECORDS SUMMARY | 2025-03-03 18:59 | XMS_ITS | Encounter Summary ---
Author Organization [employer] Address 75 [facility] 7t [place] [address] Care Team Providers Care Political Organizer Name Role Phone Cherrie Gómez MD Primary Care Provide r Reason for Visit * Reason Comments Med Refill Encounter Details Date Type Department Care Team ([facility] st Contact Info) Description 04/23/2022 Refill [facility] [address] [place] [address] Nancy Denny DO [address] [place] [address] Anemia, unspecified type Social History Tobacco Use [...] type documented in this encounter Care Teams Political Organizer Relationship Specialty Start Date End Date Cherrie Gómez MD [address] [place], [place] [phone] PCP - General Family Medicine 11/05/19 [facility] 08/06/19 documented as of this encounter
--- OUTSIDE RECORDS SUMMARY | 2025-03-03 18:59 | XMS_ITS | Clinical Summary ---
Author Organization [facility] Address [address] [facility] [address] [place] [phone] Phone Care Team Providers Care Local Company Flatbed Truck Driver Name Role Phone Cherrie Gómez MD Primary [...] Active ferrous sulfate 325 mg (65 mg morongo iron) tablet Take 325 mg by mouth [...] 2002 ZOSTER VACCINES (1 of 2) 09/27/2007 PNEUMOCOCCAL VACCINES (50+ years) (2 of 2 - PCV) 07/02/2019 07/02/2018, 06/14/2017, 12/01/2007 OSTEOPOROSIS SCREENING INITI AL (ONE-TIME) 2022 MAMMOGRAM 08/24/2023 08/23/2021, 06/11/2019, 06/06/2018 INFLUENZA VACCINE (#1) 2024 COVID-19 VACCINE (1 - 2024-2 6 season) 2025 Adult Td,Tdap Booster 01/08/2026 01/09/2016 SCREENING FOR DIABETES 12/15/2026 , 10/29/2023, 10/25/2023 LIPID PANEL 10/17/2028 10/18/2023 RSV VACCINE (1 - 1-dose 75+ series) 2032 HEPATITIS A VACCINES Aged Out No long [...] file Insurance MEDICARE PART A & B [facility] MEDICARE REPLACEMENT MEDICARE PART A & B Member Subscriber Plan / Payer (Ef fective 2023-Present) Name:Dana Winter Member ID:[id number] Relation to Subscriber:Self Name:Gregory Winterona Subscriber ID:[id number] Payer ID:[id number] Group ID:Not on file Type:Medicare Address: [employer] [address] MEDICARE REPLACEMENT MEDICARE PART A & B MEDICARE REPLACEMENT MEDICARE PART A & B Member Subscriber Plan / Payer (Ef fective 2023-) Name:Dana Winter Member ID:[id number] Relation to Subscriber:Self Name:Dana Winter Subscriber ID:[id number] Payer ID:[id number] Group ID:Not on file Type:Medicare Address: [employer] [address] [place] [phone] [place] [address] MEDICARE REPLACEMENT [facility]NNY [facility] MEDICARE PART A & B [facility] MEDICARE REPLACEMENT JOHNNY SAMSON [id number] MEDICARE PART A & B [facility] MEDICARE REPLACEMENT Care Teams Local Company Flatbed Truck Driver Relationship Specialty Start Date End Date Cherrie Gómez MD [address] [place] [phone] PCP - General Internal Medicine 08/01/23 Additional Source Comments The information contained in this document represents components of the legal health record. It is not the complete legal health record.[facility]
--- OUTSIDE RECORDS SUMMARY | 2025-03-03 18:59 | XMS_ITS | Encounter Summary ---
Author Organization [employer] Address [address] [facility] [address] 7t [place] [address] Care Team Providers Care Exercise Teacher Name Role Phone Cherrie Gómez MD [...] on filedocumented in this encounter Care Teams Exercise Teacher Relationship Specialty Start Date End Date Cherrie Gómez MD [address] [place] [phone] PCP - General Family Medicine 11/05/19 [facility] 08/06/19 documented as of this encounter
--- OUTSIDE RECORDS SUMMARY | 2025-03-03 18:59 | XMS_ITS | Encounter Summary ---
Author Organization [employer] Address [address] [facility] 7t [place] [address] Care Team Providers Care Credentialing Coordinator Name Role Phone Cherrie Gómez MD Primary Care Provide r Reason for Visit * Reason Onset Date Comments Med Refill 01/06/2024 Encounter Details Date Type Department Care Team ([facility] Contact Info) Description 01/06/[address] [facility] MEDICINE [address] [place] [address] Cherrie Gómez MD [address] [place] [address] Med Refill Social History Tobacco Use Types [...] 25 MG tablet To be sent to: [facility]/pharmacy [address] [place] [address] - [address] [place] [address] documented in this encounter Plan of Treatment Not on file documented as of this encounter Visit Diagnoses Not on filedocumented in this encounter Additional Health Concerns Assessment Noted Time PHQ-9 Depression Total Score: 20 023 2:53 PM EST documented as of this encounter Care Teams Credentialing Coordinator Relationship Specialty Start Date End Date Cherrie Gómez MD [address] [place] [address] PCP - General Family Medicine 11/05/19 [facility] 08/06/19 documented as of this encounter
--- OUTSIDE RECORDS SUMMARY | 2025-03-03 18:59 | XMS_ITS | Data Portability ---
Author Organization [employer] [place] [facility] Address [address] [place] [phone] Care Team Providers Care County Historian Name Role Phone HIM CCA OTHER Assessment Encounter Date Assessment Date Assessment LastModified by Organization Details LastModified Time 12/21/2024 12/21/2024 Mrs. Winter was evaluated for syncopal episode yesterday with head strike and two episodes of hypoglycemia. Vital signs are stable. Blood glucose is 118. Patient's daughter also reports patient making self-harm statements over the past several days including stating she wanted to overdose on her medications and throw herself off a balcony. Given this I recommended that she be transported to the ER for medical and behavioral health evaluation. The patient was cooperative for transport. She will go by EMS. Report was given via telephone to Mobile ER staff at 1649. [email or web address] Not available 12/21/2024 17:52:02 Plan of Treatment Reminders Order Date Submit Date Provider Last Modified By Organization Details Last Modified Time Details Appointments None record ed. Lab None record ed. Referral None record ed. Procedures None record ed. Surgeries None record ed. Imaging None record ed. Medication Orders None record ed. Patient TargetsNo targets recorded. Patient InstructionsNo instructions recorded. Reason for Referral None Reported. Medical Equipment None Reported. Allergies No known drug allergies Medications Name Sig Start Date Stop Date Status Note LastModified by Organization Details LastModified Time amoxicillin 500 mg capsule TOME NEELAM C PSULA CADA 12 HORAS POR 10 D active Not Available Not Available No t Available bupropion HCl SR 150 mg tablet,12 hr sustained-rel ease TOME NEELAM TABLETA TODOS LOS D active Not Available Not Available No t Available atorvastatin 80 mg tablet TOME NEELAM TABLETA POR V A ORAL ONCE DAILY AT BEDTIME active Not Available Not Available No t Available rabeprazole 20 mg tablet,delaye d release TOME NEELAM TABLETA DOS VECES AL D A active Not Available Not Available No t Available donepezil 5 mg tablet TOME NEELAM TABLETA TODOS LOS D AL ACOSTARSE active Not Available Not Available No t Available simethicone 180 mg capsule TOME 1 C PSULA POR V A ORAL ALICIA VECES AL D A active Not Available Not Available No t Available FreeStyle Lancets 28 gauge USE TO TEST BLOOD SUGAR 3 TIMES DAILY active Not Available Not Available No t Available famotidine 40 mg tablet TOME NEELAM TABLETA AL ACOSTARSE active Not Available Not Available No t Available ciprofloxacin 250 mg tablet TAKE 1 TABLET BY MOUTH 2 TIMES DAILY FOR 3 DAYS active Not Available Not Available No t Available amlodipine 5 mg tablet TOME NEELAM TABLETA TODOS LOS D active Not Available Not Available No t Available sulfamethoxaz ole 800 mg-trimethopr im 160 mg tablet TOME 1 TABLETA POR V A ORAL DOS VECES AL D A POR 7 D active Not Available Not Available No t Available acetaminophen 500 mg tablet TAKE 2 TABLETS (1,000 MG) BY MOUTH EVERY 8 (EIGHT) HOURS IF NEEDED FOR MILD PAIN FOR UP TO 10 DAYS. active Not Available Not Available No t Available metoclopramid e 5 mg tablet TOME 1 TABLETA POR V A ORAL CUATRO VECES AL D A active Not Available Not Available No t Available trazodone 100 mg tablet TOME 1 TABLETA POR V A ORAL TODOS LOS D AL ACOSTARSE CUANDO SEA NECESARIO PARA DORMIR active Not Available Not Available No t Available dicyclomine 20 mg tablet 20 MG ORALLY 4 TIMES A DAY active Not Available Not Available No t Available meclizine 25 mg tablet TOME 1 TABLETA POR V A ORAL 3 VECES AL D A (MANANA, 12, CAMA) CUANDO SEA NECESARIO PARA EL MAREO active Not Available Not Available No t Available pantoprazole 40 mg tablet,delaye d release TOME NEELAM TABLETA TODOS LOS D EN LA [place] JEFFRY active Not Available Not Available No t Available ferrous sulfate 325 mg (65 mg iron) tablet TOME NEELAM TABLETA CADA 12 HORAS active Not Available Not Available No t Available metformin 1,000 mg tablet TOME 1 TABLETA POR V A ORAL DOS VECES AL D A active Not Available Not Available No t Available flecainide 50 mg tablet TOME 1 TABLETA POR V A ORAL CADA 12 HORAS active Not Available Not Available No t Available ibuprofen 400 mg tablet TAKE 1 TABLET (400 MG) BY MOUTH EVERY 8 (EIGHT) HOURS IF NEEDED FOR MODERATE PAIN FOR UP TO 10 DAYS. active Not Available Not Available No t Available mupirocin 2 % topical ointment APPLY TOPICALLY 3 TIMES DAILY FOR 10 DAYS. OVER WOUND IN RIGHT SIDE OF THORAX active Not Available Not Available No t Available furosemide 20 mg tablet TAKE 1 TABLET (20 MG) BY MOUTH ONCE PER DAY. active Not Available Not Available No t Available metoprolol succinate ER 25 mg tablet,extend ed release 24 hr TOME 1 TABLETA POR V A ORAL TODOS LOS D active Not Available Not Available No t Available oxybutynin chloride 5 mg tablet TOME NEELAM TABLETA DOS VECES AL D A active Not Available Not Available No t Available acarbose 25 mg tablet TOME NEELAM TABLETA ALICIA VECES AL D A active Not Available Not Available No t Available ciclopirox 0.77 % topical gel APPLY TO AFFECTED AREA TOPICALLY TODOS LOS D active Not Available Not Available No t Available bupropion HCl SR 200 mg tablet,12 hr sustained-rel ease TOME NEELAM TABLETA TODOS LOS D active Not Available Not Available No t Available escitalopram 10 mg tablet TOME NEELAM TABLETA TODOS LOS D EN LA [place] JEFFRY active Not Available Not Available No t Available escitalopram 20 mg tablet TOME NEELAM TABLETA TODOS LOS D EN LA [place] JEFFRY active Not Available Not Available No t Available memantine 5 mg tablet TOME NEELAM TABLETA DOS VECES AL D A FOR 30 DAYS active Not Available Not Available No t Available Alcohol Prep Pads USE TO TEST BLOOD SUGAR 3 TIMES DAILY active Not Available Not Available No t Available chlorhexidine gluconate 0.12 % mouthwash SWISH AND SPIT WITH 15 ML IN THE MOUTH OR THROAT IF NEEDED FOR WOUND CARE FOR UP TO 14 DAYS active Not Available Not Available No t Available calcium 600 mg (as carbonate)-vi tamin D3 10 mcg (400 unit) tablet TOME 1 TABLETA POR V A ORAL DOS VECES AL D A active Not Available Not Available No t Available FreeStyle Lite Strips USE TO TEST BLOOD SUGAR 3 TIMES DAILY active Not Available Not Available No t Available cholecalcifer ol (vitamin D3) 50 mcg (2,000 unit) capsule active Not Available Not Available Not Available Vitamin D3 50 mcg (2,000 unit) tablet TOME NEELAM TABLETA POR V A ORAL EN LA [place] JEFFRY active Not Available Not Available No t Available Linzess 145 mcg capsule TOME 1 C PSULA POR V A ORAL EN LA [place] JEFFRY active Not Available Not Available No t Available Jardiance 10 mg tablet TOME 1 TABLETA POR V A ORAL TODOS LOS D active Not Available Not Available No t Available Linzess 72 mcg capsule TOME 1 C PSULA EN LA [place] JEFFRY active Not Available Not Available No t Available Vitals Date Recorded Heart rate Respiratory rate Body temperature Oxygen saturation Oxygen saturation in Arterial blood by Pulse oximetry Systolic And Diastolic Provider Name and Address Organization Details Last Updated DateTime 5 60 /min 16 /min 98.7 [degF] 98 % 98 % 135/65 mm[Hg] Not Available [employer] - production 5 17:25:55 Social History None recorded. Functional Status None recorded. Mental Status None recorded. Family History Nothing Reported. Medical History No medical history recorded. Gynecological HistoryNo gynecological history recorded. Obstetrics History GPAL:G 0 P 0 0 0 0 Past Encounters Encounter ID Performer Location Encounter Start Date Encounter Closed Date Diagnosis/Indication Diagnosis SNOMED-CT Code Diagnosis ICD10 Code Diagnosis IMO Codes Diagnosis Note [id number] ASHISH DENSON MD [facility] ED Medical [address] [address] 12/21/2024 17:25:51 12/22/2024 10:05:28 Syncope 360020230 R55 801290140 Hypoglycemia 811181700 E 16.2 12551 Suicidal thoughts 385198 6 R45.851 693181 Health Concerns Section Related Observation LastModified by Organization Detai ls LastModified Time None Recorded Concern Status LastModified by Organization Details LastModified Time None Recorded Advance Directives Directive None Recorded Payers Insurance Date Sequence Insurance Name Policy Number Policy Davis Covered Member ID Davis Member ID Guarantor Name 12/21/2024 1 [facility] - DOS ON OR AFTER 2022 - DUAL ELIGIBLE - LONG-TERM OPTIONS AND ONE CARE (MEDICARE REPLACEMENT/ADV ANTAGE - HMO) Dana Winter [id number] Dana Winter Notes Date Note Type Note Provider Name and Address Organization Details Recorded Time 12/21/2024 text/html ROS as noted in the [facility] Nurse Triage Notes (Oh Jasso): Reason For Request: Patient fell last night w/ a head injury, or possibly had a seizure, confused. Hit back of head yesterday, just wants pt checked out. Denies: Falls with head strike and LOC Falls from a standing position, no LOC, patient is amnestic to the event Falls with isolated injury and deformity noted to limb Falls with inability to move post fall Cool extremities after fall or injury Weakness with fall, able to move all extremities Chief Complaints: Falls PMH: Diabetes Mellitus Type 2 PMH Reviewed at 12/21/2024 Allergies Reviewed at 12/21/2024:34 Comments: 69 y.o female complains of Falls Caregiver reports the pt had a fall last night - Witnessed by boyfriend - Janessa and was confused before falling. - Hit her head in the back. Unknown LOC - Fluctuating blood glucose levels Denies laceration - Denies any other injuries at this time - Caregiver reports the pt is at [facility] at this time and was assessed by the staff nurse. Visit requested after 4 pm. Not on blood thinners Wellness check requested Emergency treatment declined I provided information on the mobile health provider response time and advised the patient and/or caregiver to monitor reported signs and symptoms. I discussed the warning signs of when to seek emergency care. .................. .................. .................. .................. .................. .................. .................. ............... Cupola Liner Helper Note From Ramiro Salazar: Was dispatched for a 69 Y/O female for an eval for multiple falls. [facility] PT was found sitting at the kitchen table. PT is primarily Sami speaking only. PT daughter translated for [facility]. PT family reported yesterday the PT blood sugar dropped and the PT became dizzy and fell striking her head. Today the daughter reported the PT sugar dropped to 58 prior to [facility] arrival but was able to get it [...] plan in the last week to her. [facility] was contacted, [facility] recommended sending the PT to the ED for the fall eval, and a mental health eval. 911 was contacted [facility] arrived and transported the PT [facility]. [facility] crew cleared .................. .................. .................. .................. .................. .................. .................. ............... [facility] Consulted: Ashish Denson .................. .................. .................. .................. .................. .................. .................. ............... Disposition: Fulfilled ASHISH DENSON MD [address] [place] [address],[address], [place], [address], [employer] 12/21/2024 18:13:15 OBGyn Episode No OBEpisode recorded.
--- OUTSIDE RECORDS SUMMARY | 2025-03-03 18:59 | XMS_ITS | Encounter Summary ---
Author Organization [employer] Address [address] [facility] [address] [place] [address] Care Team Providers Care Talent Development Manager Name Role Phone Cherrie Gómez MD Primary Care Provide r Reason for Visit * Reason Onset Date Comments FYI 10/31/2023 Encounter Details Date Type Department Care Team ([facility] Contact Info) Description 10/31/2023 Telephone [facility] MEDICINE [address] [place] [address] Cherrie Gómez MD [address] [place] [address] FYI Social History Tobacco Use Types Packs/Day [...] documented as of this encounter Care Teams Talent Development Manager Relationship Specialty Start Date End Date Cherrie Gómez MD [address] [place] [address] PCP - General Family Medicine 11/05/19 [facility] 08/06/19 documented as of this encounter
--- OUTSIDE RECORDS SUMMARY | 2025-03-03 18:59 | XMS_ITS | Encounter Summary ---
Author Organization [employer] Address [address] [address] [facility] [address] [place] [address] Care Team Providers Care Radio Control Crane Operator Name Role Phone Cherrie Gómez MD Primary Care Provide r Reason for Visit * Reason Comments Med Refill Encounter Details Date Type Department Care Team ([facility] st Contact Info) Description 10/19/[address] [facility] [address] [place] [address] Sharon Zavaleta MD [address] [place] [address] Anemia, unspecified type Social History Tobacco Use [...] documented as of this encounter Care Teams Radio Control Crane Operator Relationship Specialty Start Date End Date Cherrie Gómez MD [address] [place] [address] PCP - General Family Medicine 11/05/19 [facility] 08/06/19 documented as of this encounter
--- OUTSIDE RECORDS SUMMARY | 2025-03-03 18:59 | XMS_ITS | Encounter Summary ---
Author Organization [employer] Address [address] [facility] [place] [address] Care Team Providers Care Wall Scraper Name Role Phone Cherrie Gómez MD Primary Care Provide r Encounter Details Date Type Department Care Team ([facility] Contact Info) Description 03/07/[address] [facility] MEDICINE [address] [place] [address] Cherrie Gómez MD [address] [place], [place] [phone] Social History Tobacco Use Types Packs/Day Years [...] documented as of this encounter Care Teams Wall Scraper Relationship Specialty Start Date End Date Cherrie Gómez MD [address] [place] [id number] PCP - General Family Medicine 11/05/19 [facility] 08/06/19 documented as of this encounter
--- OUTSIDE RECORDS SUMMARY | 2025-03-03 18:59 | XMS_ITS | Encounter Summary ---
Author Organization [employer] Address [address] [facility] 7t [place] [address] Care Team Providers Care Pharmacy Graduate Intern Name Role Phone Cherrie Gómez MD Primary Care Provide r Reason for Visit * Reason Onset Date Comments Referral 06/18/2023 Encounter Details Date Type Department Care Team ([facility] Contact Info) Description 06/18/2023 Telephone [facility] MEDICINE [address] [place] [address] Cherrie Gómez MD [address] [place] [address] Referral Social History Tobacco Use Types Packs/Day [...] requesting a location change of referral Location: [address] [place] [address] Date: N/A Time: N/A Specialty: Memory DX: Memory loss Daughter stated pt already has referral for [facility] neurology but [facility] informed them that pt will need to be seen at a different location due to dx. If any questions Daughter stated feel free to contact at [phone]. documented in this encounter Plan of Treatment Not on file documented as of this encounter Visit Diagnoses Not on filedocumented in this encounter Additional Health Concerns Assessment Noted Time PHQ-9 Depression Total Score: 20 023 2:53 PM EST documented as of this encounter Care Teams Pharmacy Graduate Intern Relationship Specialty Start Date End Date Cherrie Gómez MD [address] [place] [address] PCP - General Family Medicine 11/05/19 [facility] 08/06/19 documented as of this encounter
--- OUTSIDE RECORDS SUMMARY | 2025-03-03 18:59 | XMS_ITS | Clinical Summary ---
Author Organization [address] [place] [address] Address [address] [place] [address] Phone Care Team Providers Care Sewing Inspector Name Role Phone Cherrie Gómez MD Primary Care Provide r Surgical History Surgery Date Site/Laterality Comments GASTRIC BYPASS PROCEDURE: GASTRIC BYPASS FOR OBESIT ABDOMINAL SURGERY PROCEDURE: HISTORICAL ABDOMINAL SURGERY BREAST REDUCTION PROCEDURE: SD BREAST REDUCTION CHOLECYSTECTOMY PROCEDURE: SD CHOLECYSTECTOMY FOOT SURGERY PROCEDURE: HISTORICAL FOOT SURGERY; COMMENT: right foot,little toe Medical History Medical History Date Comments Diabetes mellitus ([facility] V 24, CMS/HCC V28) DX:Diabetes [...] patient's age to complete this topic Insurance [facility] MEDIC[facility] Member Subscriber Plan / Payer (Ef fective 2024-Present) Name:Dana Winter Relation to Subscriber:Self Name:Dana Winter Payer ID:[id number] Group ID:[id number] Type:Not on file Address: [address] [place] [address] MEDICAID - [place] Care Teams Sewing Inspector Relationship Specialty Start Date End Date Cherrie Gómez MD [address] [place] [phone] PCP - General Internal Medicine 08/04/24
--- OUTSIDE RECORDS SUMMARY | 2025-03-03 18:59 | XMS_ITS | Encounter Summary ---
Author Organization [employer] Address [address] [address] [facility] [address] [place] [address] Care Team Providers Care Lumber Checker Name Role Phone Cherrie Gómez MD Primary Care Provide r Reason for Visit * Reason Comments Med Refill Encounter Details Date Type Department Care Team ([facility] Contact Info) Description 07/08/2023 Refill [facility] MEDICINE [address] [place] [address] Cherrie Gómez MD [address] [place] [address] Social History Tobacco Use Types Packs/Day Years [...] documented as of this encounter Care Teams Lumber Checker Relationship Specialty Start Date End Date Cherrie Gómez MD [address] [place] [address] PCP - General Family Medicine 11/05/19 [facility] 08/06/19 documented as of this encounter
--- OUTSIDE RECORDS SUMMARY | 2025-03-03 18:59 | XMS_ITS | Encounter Summary ---
Author Organization [employer] Address [address] [facility] [address] [place] [address] Care Team Providers Care Coil Taper Name Role Phone Cherrie Gómez MD Primary Care Provide r Encounter Details Date Type Department Care Team ([facility] Contact Info) Description 12/21/2024 Orders Only [facility] MEDICINE [address] [place] [address] Cherrie Gómez MD [address] [place], [place] [phone] Social History Tobacco Use Types Packs/Day Years [...] documented as of this encounter Care Teams Coil Taper Relationship Specialty Start Date End Date Cherrie Gómez MD [address] [place] [address] PCP - General Family Medicine 11/05/19 [facility] 08/06/19 documented as of this encounter
--- OUTSIDE RECORDS SUMMARY | 2025-03-03 18:59 | XMS_ITS | Encounter Summary ---
Author Organization [employer] Address [address] [facility] 7t [place] [address] Care Team Providers Care Pipe Line Repairer Name Role Phone Cherrie Gómez MD Primary Care Provide r Reason for Visit * Reason Onset Date Comments Med Refill 06/17/2023 Encounter Details Date Type Department Care Team ([facility] Contact Info) Description 06/17/[address] [facility] MEDICINE [address] [place] [address] Cherrie Gómez MD [address] [place] [address] Med Refill Social History Tobacco Use Types [...] 25 MG tablet To be sent to: [facility]/pharmacy #[id number] [place] [address] - [address] [place] [phone] documented in this encounter Plan of Treatment Not on file documented as of this encounter Visit Diagnoses Not on filedocumented in this encounter Additional Health Concerns Assessment Noted Time PHQ-9 Depression Total Score: 20 023 2:53 PM EST documented as of this encounter Care Teams Pipe Line Repairer Relationship Specialty Start Date End Date Cherrie Gómez MD [address] [place] [phone] PCP - General Family Medicine 11/05/19 [facility] 08/06/19 documented as of this encounter
--- OUTSIDE RECORDS SUMMARY | 2025-03-03 18:59 | XMS_ITS | Encounter Summary ---
Author Organization [employer] Address [address] [place] [address] Care Team Providers Care Household Appliances Salesperson Name Role Phone Cherrie Gómez MD Primary Care Provide r Encounter Details Date Type Department Care Team ([facility] Contact Info) Description 04/13/2024 Telephone [facility] MEDICINE [address] [place] [address] Cherrie Gómez MD [address] [place], [place] [phone] Social History Tobacco Use Types Packs/Day Years [...] documented as of this encounter Care Teams Household Appliances Salesperson Relationship Specialty Start Date End Date Cherrie Gómez MD [address] [place] [address] PCP - General Family Medicine 11/05/19 [facility] 08/06/19 documented as of this encounter
--- OUTSIDE RECORDS SUMMARY | 2025-03-03 18:59 | XMS_ITS | Encounter Summary ---
Author Organization [employer] Address [address] [facility] [address] [place] [address] Care Team Providers Care Medical Videographer Name Role Phone Cherrie Gómez MD Primary Care Provide r Encounter Details Date Type Department Care Team ([facility] Contact Info) Description 02/27/2023 Abstract [facility] MEDICINE [address] [place] [address] Cherrie Gómez MD [address] [place], [place] [phone] Social History Tobacco Use Types Packs/Day Years [...] as of this encounter Care Teams Medical Videographer Relationship Specialty Start Date End Date Cherrie Gómez MD [address] [place] [address] PCP - General Family Medicine 11/05/19 [facility] 08/06/19 documented as of this encounter
--- OUTSIDE RECORDS SUMMARY | 2025-03-03 18:59 | XMS_ITS | Encounter Summary ---
Author Organization [employer] Address [address] [facility] [address] [place] [address] Care Team Providers Care Training Analyst Name Role Phone Cherrie Gómez MD Primary Care Provide r Encounter Details Date Type Department Care Team ([facility] Contact Info) Description 07/27/2024 Orders Only [facility] MEDICINE [address] [place] [address] Cherrie Gómez MD [address] [place], [place] [phone] Social History Tobacco Use Types Packs/Day Years [...] documented as of this encounter Care Teams Training Analyst Relationship Specialty Start Date End Date Cherrie Gómez MD [address] [place] [phone] PCP - General Family Medicine 11/05/19 [facility] 08/06/19 documented as of this encounter
--- OUTSIDE RECORDS SUMMARY | 2025-03-03 18:59 | XMS_ITS | Encounter Summary ---
Author Organization [facility] Address [address] [facility] 7t [place] [address] Care Team Providers Care Numerical Control Drill Press Operator Name Role Phone Cherrie Gómez MD Primary Care Provide r Reason for Visit * Reason Onset Date Comments Hospital Follow-up 05/06/2024 Encounter Details Date Type Department Care Team ([facility] Contact Info) Description 05/06/2024 Telephone [facility] MEDICINE [address] [place] [address] Cherrie Gómez MD [address] [place] [address] Hospital Follow-up Social History Tobacco Use Types [...] daughter, MAYURI, reports Pt was seen in [facility] ED 05/06/24 for UTI. Pt didn't have [...] prior to booking. Will request information from [facility] visit 05/06/24 be obtained for chart. Protocol [...] 05/06/2024 2:05 PM EST Triage call with [facility] clinical coordinator , [place] [address]. Call to [phone] no answer, voice mail message left to call [facility] [phone]. Call to [phone], no answer. Left voice message to call [facility] [phone] * Telephone Encounter - Sincere Chang - 05/06/2024 12:09 PM EST Tc from pt requesting a HDF appt. Hospital: [facility] Date of admission: 05/06/2024 Discharge date: 05/06/2024 Diagnosed: UTI *Send message to [facility] Clinical Care Coordinators documented in this encounter Plan of Treatment Not on file documented as of this encounter Visit Diagnoses Not on filedocumented in this encounter Additional Health Concerns Assessment Noted Time PHQ-9 Depression Total Score: 20 023 2:53 PM EST documented as of this encounter Care Teams Numerical Control Drill Press Operator Relationship Specialty Start Date End Date Cherrie Gómez MD [address] [place] [address] PCP - General Family Medicine 11/05/19 [facility] 08/06/19 documented as of this encounter
--- OUTSIDE RECORDS SUMMARY | 2025-03-03 18:59 | XMS_ITS | Encounter Summary ---
Author Organization [employer] Address [address] [facility] 7t [place] [address] Care Team Providers Care Head Start Director Name Role Phone Cherrie Gómez MD Primary Care Provide r Reason for Visit * Reason Onset Date Comments Med Refill 06/04/2024 Encounter Details Date Type Department Care Team ([facility] Contact Info) Description 06/04/2024 Telephone [facility] MEDICINE [address] [place] [address] Cherrie Gómez MD [address] [place] [address] Med Refill Social History Tobacco Use Types [...] 10:13 AM EST Medication was sent to [id number] on 04/13/24 90 day supply with 1 refill. * Telephone Encounter - Jess Lopez - 06/04/2024 9:48 AM EST TC from pt requesting medication refill. Medications needing refill : ferrous sulfate 325 (65 Fe) MG tablet To be sent to: [facility]/pharmacy #[id number] - [address] documented in this encounter Plan of Treatment Not on file documented as of this encounter Visit Diagnoses Not on filedocumented in this encounter Additional Health Concerns Assessment Noted Time PHQ-9 Depression Total Score: 20 023 2:53 PM EST documented as of this encounter Care Teams Head Start Director Relationship Specialty Start Date End Date Cherrie Gómez MD [address] [place] [address] PCP - General Family Medicine 11/05/19 [facility] 08/06/19 documented as of this encounter
--- OUTSIDE RECORDS SUMMARY | 2025-03-03 18:59 | XMS_ITS | Encounter Summary ---
Author Organization [facility] Address [address] 7[address] [place] [address] Care Team Providers Care Sheet Metal Fabricator Name Role Phone Cherrie Gómez MD Primary Care Provide r Reason for Visit * Reason Onset Date Comments FYI 02/26/2025 Encounter Details Date Type Department Care Team ([facility] Contact Info) Description 02/26/2025 Telephone [facility] MEDICINE [address] [place] [address] Cherrie Gómez MD [address] [place] [address] FYI Social History Tobacco Use Types Packs/Day [...] encounter Miscellaneous Notes * Telephone Encounter - Kylie Arriaga RN - 02/26/2025 1:48 PM EDT TC returned to [facility] [phone] in regards to below message. Humphrey reports the patient fell yesterday around 10pm when attempting to p/u her dog. Humphrey reports the patient became dizzy and fell to her knees. Humphrey reports the patient was able to stand up on her own. Humphrey denies the patient reported any pain this morning and denies any visible bruising. Patient did not hit her head during fall. Humphrey also concerned as patient has had poor appetite lately. Humphrey reports within the last week, the patient has had: 4 Tbsp of mash potatoes 4 Tbsp of rice with beans 5 sugar crackers Tea and lots of coffee with cream and sugar Humphrey reports the patients director of catering sales recently re-started the lantus at 8u in the AM. Humphrey reports the patients AM BS's usually range in the 200's and in the PM in the 444's . Humphrey reports this AM her BS was 327. Humphrey reports she has notified the director of catering sales however they do notwant to make any medication changes at this time d/t her poor appetite currently. Sending to PCP as KENDALL. * Telephone Encounter - Adam Schofield - 02/26/2025 8:06 AM EDT Tc from [facility] a vna with [facility] reporting that the night of 02/25/2025 around 10 pm pt has fell while bending over. Pt when to go pecan picker dog, she then got dizzy and fell. Pt Denied any triage. Humphrey also wanted to report that pt has not been really eating. Pt has diabetes to she needs her nutritious intake. Any questions contact humphrey at [phone]. documented in this encounter Plan of Treatment Not on file documented as of this encounter Visit Diagnoses Not on filedocumented in this encounter Additional Health Concerns Assessment Noted Time PHQ-9 Depression Total Score: 4 02/11/20 25 2:12 PM EDT documented as of this encounter Care Teams Sheet Metal Fabricator Relationship Specialty Start Date End Date Cherrie Gómez MD [address] [place] [address] PCP - General Family Medicine 11/05/19 [facility] 08/06/19 documented as of this encounter
--- OUTSIDE RECORDS SUMMARY | 2025-03-03 18:59 | XMS_ITS | Encounter Summary ---
Author Organization [employer] Address [address] [place] [address] 7t [place] [address] Care Team Providers Care Estimating Engineer Name Role Phone Cherrie Gómez MD Primary Care Provide r Encounter Details Date Type Department Care Team ([facility] Contact Info) Description 01/09/2023 [facility] Health Information Management [address] [place] [address] Cherrie Gómez MD [address] [place] [address] Social History Tobacco Use Types Packs/Day Years [...] documented as of this encounter Care Teams Estimating Engineer Relationship Specialty Start Date End Date Cherrie Gómez MD [address] [place] [address] PCP - General Family Medicine 11/05/19 [facility] 08/06/19 documented as of this encounter
--- OUTSIDE RECORDS SUMMARY | 2025-03-03 18:59 | XMS_ITS | Encounter Summary ---
Author Organization [employer] Address [address] [facility] [address] [place] [address] Care Team Providers Care Bingo Worker Name Role Phone Cherrie Gómez MD [...] on filedocumented in this encounter Care Teams Bingo Worker Relationship Specialty Start Date End Date Cherrie Gómez MD [address] [place] [address] PCP - General Family Medicine 11/05/19 [facility] 08/06/19 documented as of this encounter
--- OUTSIDE RECORDS SUMMARY | 2025-03-03 18:59 | XMS_ITS | Encounter Summary ---
Author Organization [employer] Address [address] [facility] [address] 7[address] [place] [address] Care Team Providers Care Galley Hand Name Role Phone Cherrie Gómez MD Primary Care Provide r Reason for Visit * Reason Comments Med Refill Encounter Details Date Type Department Care Team ([facility] Contact Info) Description 05/17/2023 Refill [facility] MEDICINE [address] [place] [address] Cherrie Gómez MD [address] [place], [place] [phone] Type 2 diabetes mellitus without complications (CMS/HCC) [...] documented as of this encounter Care Teams Galley Hand Relationship Specialty Start Date End Date Cherrie Gómez MD [address] [place] [address] PCP - General Family Medicine 11/05/19 [facility] 08/06/19 documented as of this encounter
--- OUTSIDE RECORDS SUMMARY | 2025-03-03 18:59 | XMS_ITS | Encounter Summary ---
Author Organization [employer] Address [address] [facility] [address] 7[address] [place] [address] Care Team Providers Care Oil Well Engineer Name Role Phone Cherrie Gómez MD Primary Care Provide r Encounter Details Date Type Department Care Team ([facility] Contact Info) Description 05/09/2023 Abstract [facility] ADULT DENTAL [address] [place] [address] Farheen Rojas, DDS [address] [place] [address] Social History Tobacco Use Types Packs/Day Years [...] documented as of this encounter Care Teams Oil Well Engineer Relationship Specialty Start Date End Date Cherrie Gómez MD [address] [place] [address] PCP - General Family Medicine 11/05/19 [facility] 08/06/19 documented as of this encounter
== END 2025-03-03 16:11 | disposition home or self-care (01) ==
LOC: HO.HGI 15:30
PROVIDERS: PCP Internal Medicine; Visit Provider Nurse Practitioner
DX: K90.0 Celiac disease (principal); K21.9 Gastro-esophageal reflux disease without esophagitis; E13.43 Other specified diabetes mellitus with diabetic autonomic (poly)neuropathy; R10.9 Unspecified abdominal pain
CPT/HCPCS: 99213

== ENCOUNTER → 2025-03-03 15:29 | Outpatient (BNVA) | payer OTHER, SELFPAY | PROVIDERS: PCP Internal Medicine; Visit Provider Nurse Practitioner | DX: K90.0 Celiac disease (principal); K21.9 Gastro-esophageal reflux disease without esophagitis; E13.43 Other specified diabetes mellitus with diabetic autonomic (poly)neuropathy; R10.9 Unspecified abdominal pain | CPT/HCPCS: 99212 ==

== ENCOUNTER 2025-03-08 15:34 | Outpatient (AMB) | payer OTHER, SELFPAY ==
--- NOTE | 2025-03-08 15:36 | MHC.OFFVIS ---
Vital Signs 03/08/25 15:37 Height 5 ft 3 in Weight 166 lb 10.711 oz BMI 29.5 BP 126/58 L Blood Pressure Location Lt brachial Position Sitting Pulse 64 Pulse Source Pulse Oximeter Pulse Oximetry (%) 98 Oxygen Delivery Method Room Air Intake Visit Reasons: DMT2 Follow-UP Intake Note: Patient present today for Type 2 Diabetes Mellitus Last Diabetic eye exam:?last year around this time Last Podiatry Visit:?She would like the referral Random Glucose:?361 mg/dl HgA1C: 6.9%? 01/04/25 [employer] Required: Yes [employer] Services: [employer] Offered & Declined [employer] Name: Stephen Information Interpreted: non-clinical & clinical Accompanied by: daughter and grandchildren Allergies empagliflozin Adverse Reaction (Intermediate, Verified 03/08/25 15:44) uti Medication List - Last Reconciled 03/08/25 by Janel Lozada PA-C amlodipine 5 mg PO DAILY aspirin (Adult Aspirin Regimen) 81 mg PO DAILY atorvastatin 80 mg PO BEDTIME blood sugar diagnostic (FreeStyle Lite Strips) 2times a day blood-glucose meter (FreeStyle Lite Meter kit) Twice a day blood-glucose sensor (FreeStyle Zunilda 3 Plus Sensor device) As directed for coninuous use change every 15 days blood-glucose,business banking manager,cont (FreeStyle Zunilda 3 [place]) As directed bupropion HCl XL (Wellbutrin XL) 150 mg PO DAILY calcium carbonate-vitamin D3 600 mg-10 mcg (400 unit) 1 tab PO BID cholecalciferol (vitamin D3) 50 mcg PO DAILY [diabetic shoes extra depth orthopedic shoes ( 1 pair ) with customize heat molded multi density inner soles ( 3 pair) Dispense 1 Sig: As directed DX: And IDDM /polyneuropathy ( E11 0.42 ); hammertoe foot deformity ( M 20.41, and 20.42 ) pre ulcerative skin lesion ( L 85.1 ) Diagnosis ( E11 0.42 ) type 2 diabetes with polyneuropathy] [diabetic shoes extra depth orthopedic shoes ( 1 pair ) with customize heat molded multi density inner soles ( 3 pair) Dispense 1 Sig: As directed DX: And IDDM /polyneuropathy ( E11 0.42 ); hammertoe foot deformity ( M 20.41, and 20.42 ) pre ulcerative skin lesion ( L 85.1 ) Diagnosis ( E11 0.42 ) type 2 diabetes with polyneuropathy] dicyclomine 20 mg PO QID 30 days escitalopram oxalate 20 mg PO DAILY ferrous sulfate 325 mg PO BID flecainide 50 mg PO Q12H furosemide 20 mg PO DAILY gabapentin 300 mg PO BEDTIME glucose (Dex4 Glucose) 16 grams (4 x 4 gram) PO Q15M PRN 30 days MDD 16 tablets insulin syringe-needle U-100 As directed twice daily NS lancets (FreeStyle Lancets) As directed loperamide 2 mg PO Q6H PRN meclizine 25 mg PO DAILY PRN metformin 1,000 mg PO BID 90 days metoclopramide HCl 5 mg PO QID metoprolol succinate ER 25 mg PO DAILY multivitamin 1 tab PO DAILY oxybutynin chloride 5 mg PO BID simethicone (Gas Relief (simethicone)) 125 mg PO BID-QID PRN trazodone 100 mg PO BEDTIME PRN HPI HPI DMT2 Follow-UP: Details: Patient is 69-year-old female with DM type 2 diagnosed 1989 who presents for f/u diabetes visit. Previously following with my colleague. She has a significant past medical history of celiac disease, pacemaker, CHF, CKD stage 3, PAF, dyslipidemia, hypertension, memory impairment with a history of a subdural hematoma and insulin-dependent type 2 diabetes. She is accompanied today by her daughter who helps with translation Endo: Dm-A1c was 6.9. metformin 1000 mg twice a day and Lantus 8 units daily -at last visit paused the lantus due to hypogylcemia with 15 units. With stopping this she did develop some elevated blood sugars and then restarted the Lantus at 8 units in his still having some higher blood sugars -she states that she is still having low blood sugars overnight. Daughter states that in the morning she is often drinking juice to elevate your blood sugars and then they go up to 200. She has reduce the Lantus to 15 units in his stool at times developing low blood sugars. Daughter states that patient tries to lose weight and does not eat as much as she probably should. -She previously had been on acarbose and Jardiance. She has had multiple klebsiella + uti's in the past. She has gastroparesis on multiple agents and GLP 1 agonists are contraindicated. Humalog mix caused frequent low bs. cgm-average glucose 201, G mi 8.1%, usage 45%. Very hyperglycemic 26%, hyperglycemic 32%, in range 42%, hypoglycemic 0% Hypoglycemia: Has not had any since stopping insulin Hyperglycemia: denies polyuria, denies polydypsia Diet: eats what she wants does eat conc sweets Issues with memory. She has history of prior fall with subdural hematoma. She attends a day program. [facility] contact: [facility] [phone] CV: Blood pressure today in the office is 126/58. She is currently on amlodipine 5 mg daily, metoprolol 25 mg daily. Cholesterol has been managed with atorvastatin 80 mg. [facility] Medical History (Updated 03/03/25 @ 16:07 by VILMA Joe) Chronic idiopathic constipation Diabetes mellitus type 2, insulin dependent Diastolic dysfunction Hypertension CKD stage 3 secondary to diabetes Gastroparesis due to secondary diabetes Bradycardia Burning with urination Encounter for monitoring anti-arrhythmic therapy Essential hypertension Abdominal bloating Small intestinal bacterial overgrowth Nausea and vomiting Dysphagia Periumbilical abdominal pain Globus sensation Orthostatic hypotension Presence of Watchman left atrial appendage closure device Subdural hematoma Syncope and collapse PAF (paroxysmal atrial fibrillation) Vitamin D deficiency Anxiety Depression Overweight (BMI 25.0-29.9) Dyslipidemia Non-toxic multinodular goiter Diabetic polyneuropathy associated with type 2 diabetes mellitus Diabetic retinopathy associated with type 2 diabetes mellitus Diabetes type 2, controlled Surgical History Hx of breast reduction, elective History of cholecystectomy H/O esophagogastroduodenoscopy Hx of colonoscopy History of gastric bypass History of gastric bypass Hx of hand surgery Family History Father CVD (cardiovascular disease) Mother Diabetes Social History Household Members: Spouse Alcohol intake: never Patient Tobacco Use Status: Former Tobacco user Tobacco use type: Cigarette Physical Exam Vital Signs: BMI result Body Mass Index 29.5 Const Orientation/consciousness: patient oriented x3 HEENT Ears: hearing grossly normal bilaterally Neck Thyroid: Thyroid normal Lymphatic: no lymphadenopathy noted Resp Auscultation: clear to auscultation bilaterally Cardio Rate: regular rate Rhythm: regular rhythm Heart sounds: S1 normal heart sound present and S2 normal heart sound present Skin General skin exam: no rashes or lesions noted Neuro General: patient oriented x3, gait normal and no focal motor deficits Results Reviewed Results Reviewed: Laboratory Tests 01/04/25 02/03/25 15:45 12:55 Creatinine 1.42 H Estimated GFR 37 Hgb A1c (Clinic) 6.9 H Assessment & Plan Assessment & Plan (1) Diabetes mellitus type 2, insulin dependent: Code(s): E11.9 - Type 2 diabetes mellitus without complications; Z79.4 - exterminator helper (current) use of insulin Category: Medical Plan: Given her history of low blood sugars with Lantus we will switch her to Tresiba. We will start Tresiba 12 units. Continue metformin 1000 mg twice a day Patient has been trying to eat healthier and work on weight loss on her own. (2) Hypertension: Code(s): I10 - Essential (primary) hypertension Category: Medical Plan: Continue current regimen Medications: New insulin degludec (Tresiba FlexTouch U-100 insulin) 12 units (0.12 mL) subcut DAILY 15 mL 3RF Patient Instructions: take lantus at 12 units until you berry picker tresiba the tresiba will REPLACE lantus take tresiba at 12 units as well when you discontinue the lantus continue metformin Coding Level of Care Code Est Pt Level 4 (82145) Complex EM visit Add On G2211 Diagnoses Diabetes mellitus type 2, insulin dependent E11.9; Z79.4 Hypertension I10
[2025-03-08 15:37] VITALS: BP 126/58; PULSE 64; O2SAT 98; BMI 29.5
[2025-03-08 15:55] LABS: Glucose, Whole Blood 361 mg/dL (60-115)
--- OUTSIDE RECORDS SUMMARY | 2025-03-08 19:47 | XMS_ITS | Clinical Summary ---
Author Organization [facility] Address [address] [place] [address] Phone Care Team Providers Care Rotary Dryer Operator Name Role Phone Cherrie Gómez MD [...] Active ferrous sulfate 325 mg (65 mg [place] iron) tablet Take 325 mg by mouth [...] file Insurance MEDICARE PART A & B [facility] MEDICARE REPLACEMENT MEDICARE PART A & B Member Subscriber Plan / Payer (Ef fective 2023-Present) Name:Dana Winter Member ID:[id number] Relation to Subscriber:Self Name:Gregory Winterona Subscriber ID:[id number] Payer ID:[id number] Group ID:Not on file Type:Medicare Address: to be [address] MEDICARE REPLACEMENT MEDICARE PART A & B MEDICARE REPLACEMENT MEDICARE PART A & B Member Subscriber Plan / Payer (Ef fective 2023-) Name:Dana Winter Member ID:[id number] Relation to Subscriber:Self Name:Dana Winter Subscriber ID:[id number] Payer ID:[id number] Group ID:Not on file Type:Medicare Address: to be [address] [place] [id number] [place] [address] MEDICARE REPLACEMENT JOHNNY SAMSON [facility] MEDICARE PART A & B [facility] MEDICARE REPLACEMENT JOHNNY SAMSON [id number] MEDICARE PART A & B [facility] MEDICARE REPLACEMENT Care Teams Rotary Dryer Operator Relationship Specialty Start Date End Date Cherrie Gómez MD [address] [place] [address] PCP - General Internal Medicine 08/01/23 Additional Source Comments The information contained in this document represents components of the legal health record. It is not the complete legal health record.[facility]
--- OUTSIDE RECORDS SUMMARY | 2025-03-08 19:47 | XMS_ITS | Clinical Summary ---
Author Organization [facility] Address [address] [place] [address] [address] [place] [place] [phone] Phone Care Team Providers Care Annual Giving Manager Name Role Phone Cherrie Gómez MD [...] 05/02/2023, 07/02/2018, 06/14/2017, Additional history exists Insurance [facility] ([id number]) JOHNNY SAMSON [id number] [place] [id number] [facility] ([id number]) JOHNNY SAMSON [id number] Care Teams Annual Giving Manager Relationship Specialty Start Date End Date Cherrie Gómez MD [address] [place] [address] [place] [phone] PCP - General 05/30/20
== END 2025-03-08 16:03 | disposition home or self-care (01) ==
LOC: HO.ENCR 15:35
PROVIDERS: PCP Internal Medicine; Visit Provider Physician Assistant
DX: E11.9 Type 2 diabetes mellitus without complications (principal); Z79.4 Long term (current) use of insulin; I10 Essential (primary) hypertension

== ENCOUNTER → 2025-03-08 15:34 | Outpatient (BNVA) | payer OTHER, SELFPAY | PROVIDERS: PCP Internal Medicine; Visit Provider Physician Assistant | DX: E11.22 Type 2 diabetes mellitus with diabetic chronic kidney disease (principal); I13.0 Hypertensive heart and chronic kidney disease with heart failure and stage 1 through stage 4 chronic kidney disease, or unspecified chronic kidney disease; I50.9 Heart failure, unspecified; N18.30 Chronic kidney disease, stage 3 unspecified; Z79.84 Long term (current) use of oral hypoglycemic drugs; Z79.4 Long term (current) use of insulin | CPT/HCPCS: 82947; 99212 ==

== ENCOUNTER → 2025-05-10 12:19 | Outpatient (BNV) | payer OTHER, SELFPAY | PROVIDERS: PCP Internal Medicine; Visit Provider Internal Medicine | DX: R00.1 Bradycardia, unspecified (principal); I48.0 Paroxysmal atrial fibrillation | CPT/HCPCS: 93294 ==